=== PATIENT | male | born 1945 | race Caucasian/White ===

== ENCOUNTER → 2020-02-05 14:20 | Outpatient (BNVA) | payer MEDICARE, OTHER, SELFPAY | PROVIDERS: PCP Internal Medicine; Referring Provider Internal Medicine; Visit Provider Nurse Practitioner Family | DX: I48.0 Paroxysmal atrial fibrillation (principal); I35.0 Nonrheumatic aortic (valve) stenosis; R60.0 Localized edema; E78.5 Hyperlipidemia, unspecified; I10 Essential (primary) hypertension; E11.9 Type 2 diabetes mellitus without complications; Z79.01 Long term (current) use of anticoagulants | CPT/HCPCS: 99214 ==

== ENCOUNTER 2020-02-27 06:50 | Outpatient (REF) | payer MEDICARE, OTHER, SELFPAY ==
[2020-02-27 11:14] LABS: MANUAL DIFF FLAG NO
[2020-02-27 11:26] LABS: Estimated Average Glucose 143 mg/dL; Hemoglobin A1c % 6.6 %
[2020-02-27 11:30] LABS: Basophils Absolute Auto 0.1 X10*3/uL (0.0-0.2); Basophils Percent Auto 0.9 % (0-2); Eosinophils Absolute Auto 0.3 X10*3/uL (0.0-0.4); Eosinophils Percent Auto 3.8 % (0-4); Hematocrit 35.2 % (42-52); Hemoglobin 11.3 g/dl (14.0-18.0); Imm Gran Abs Auto 0.03 X10*3/uL (0.00-0.03); Imm Gran Pct Auto 0.4 % (0.0-0.4); Lymphocytes Absolute Auto 2.1 X10*3/uL (1.2-4.9); Lymphocytes Percent Auto 25.1 % (20-40); Mean Corpuscular HGB Conc 32.1 g/dl (31.0-36.0); Mean Corpuscular Hemoglobin 30.5 pg (27.0-33.0); Mean Corpuscular Volume 95.1 fL (80-98); Mean Platelet Volume 10.3 fL (9.4-12.4); Monocytes Absolute Auto 1.1 X10*3/uL (0.1-1.2); Neutrophils Absolute Auto 4.6 X10*3/uL (2.0-8.3); Neutrophils Percent Auto 56.8 % (45-73); Platelet Count 258 X10*3/uL (160-400); Red Cell Distribution Width 13.4 % (11.0-16.0); White Blood Count 8.2 X10*3/uL (4.8-10.8)
[2020-02-27 11:37] LABS: Glucose Urine UA NEG (NEG); Leukocyte Esterase Urine NEG (NEG); Nitrite Urine NEG (NEG); PH 6.5 (5.0-8.0); Urine Blood NEG (NEG); Urine Ketones NEG (NEG); Urine Protein NEG (NEG-TRACE)
[2020-02-27 11:39] LABS: Alanine Aminotransferase 9 U/L (0-40); Albumin Level 4.1 g/dL (3.5-5.0); Alkaline Phosphatase 129 U/L (39-117); Anion Gap 14 (12-20); Aspartate Amino Transferase 16 U/L (5-37); Bilirubin Total 0.8 mg/dL (0.0-1.0); Blood Urea Nitrogen 15 mg/dL (9-16); Calcium 8.8 mg/dL (8.4-10.2); Carbon Dioxide 25 mmol/L (22-29); Chloride 103 mmol/L (96-108); Cholesterol 114 mg/dL; Estimated Glomerular Filt Rate > 60; Glucose Fasting 142 mg/dL (60-99); HDL Cholesterol 33 mg/dL; LDL Cholesterol Calculated 67 mg/dl; Potassium 4.6 mmol/l (3.3-5.1); Sodium 137 mmol/L (135-145); Triglycerides 74 mg/dL
[2020-02-27 11:40] LABS: Appearance Urine HAZY; Color Urine YELLOW
[2020-02-27 11:43] LABS: B Type Natriuretic Peptide 106 pg/mL (<100)
[2020-02-27 12:04] LABS: Vitamin D 25-OH Total 45.7 ng/mL (>30)
[2020-02-27 12:05] LABS: Creatinine Urine 158.21 mg/dL; Microalbum/Creatinine Ratio Ur 6.3 ug/mg cr
[2020-02-27 12:29] LABS: Mucus Urine TRACE /LPF; RBC Urine 0-2 /HPF (0); WBC Urine 0 /HPF (0-4)
== END 2020-02-27 06:51 | disposition home or self-care (01) ==
LOC: HO.HMGCLDS 06:50
PROVIDERS: Nurse Practitioner Family; PCP Internal Medicine; Visit Provider Internal Medicine
DX: I48.0 Paroxysmal atrial fibrillation (principal); E11.9 Type 2 diabetes mellitus without complications; I35.0 Nonrheumatic aortic (valve) stenosis; E55.9 Vitamin D deficiency, unspecified
CPT/HCPCS: 36415; 80053; 80061; 81001; 82043; 82306; 83036; 83880; 84443; 85025

== ENCOUNTER 2020-05-06 14:37 | Outpatient (REF) | payer MEDICARE, OTHER, SELFPAY ==
--- NOTE | 2020-05-06 | XR_ITS ---
EXAMINATION: XR CHEST CLINICAL INFORMATION: Paroxysmal atrial fibrillation COMPARISON: Previous chest x-rays most recent August 2019 TECHNIQUE: 2 views of the chest were obtained. FINDINGS: The cardiac and mediastinal contours are stable. There is linear scarring or subsegmental atelectasis in the anterior right lung. The lungs are otherwise clear. There is no pleural effusion or pneumothorax. There are degenerative changes of the spine. XR/XR chest 2V IMPRESSION: Linear scarring or subsegmental atelectasis in the anterior right upper lung. No evidence of CHF.
[2020-05-06 16:35] LABS: Basophils Absolute Auto 0.1 X10*3/uL (0.0-0.2); Basophils Percent Auto 0.6 % (0-2); Eosinophils Absolute Auto 0.3 X10*3/uL (0.0-0.4); Eosinophils Percent Auto 2.8 % (0-4); Hematocrit 35.6 % (42-52); Hemoglobin 11.4 g/dl (14.0-18.0); Imm Gran Abs Auto 0.03 X10*3/uL (0.00-0.03); Imm Gran Pct Auto 0.3 % (0.0-0.4); Lymphocytes Absolute Auto 2.3 X10*3/uL (1.2-4.9); Mean Corpuscular Hemoglobin 29.8 pg (27.0-33.0); Mean Corpuscular Volume 93.2 fL (80-98); Mean Platelet Volume 10.1 fL (9.4-12.4); Monocytes Percent Auto 11.1 % (2-11); Neutrophils Absolute Auto 5.2 X10*3/uL (2.0-8.3); Neutrophils Percent Auto 59.2 % (45-73); Platelet Count 284 X10*3/uL (160-400); Red Blood Count 3.82 X10*6/uL (4.60-5.80); Red Cell Distribution Width 13.6 % (11.0-16.0); White Blood Count 8.8 X10*3/uL (4.8-10.8)
[2020-05-06 16:38] LABS: MANUAL DIFF FLAG NO
[2020-05-06 16:53] LABS: Alanine Aminotransferase 12 U/L (0-40); Albumin Level 4.4 g/dL (3.5-5.0); Alkaline Phosphatase 162 U/L (39-117); Anion Gap 15 (12-20); Aspartate Amino Transferase 18 U/L (5-37); Bilirubin Total 0.4 mg/dL (0.0-1.0); Blood Urea Nitrogen 15 mg/dL (9-16); C Reactive Protein 1.14 mg/dL (< or = 0.50); Calcium 9.4 mg/dL (8.4-10.2); Carbon Dioxide 27 mmol/L (22-29); Chloride 101 mmol/L (96-108); Estimated Glomerular Filt Rate > 60; Glucose Random 121 mg/dL (60-115); Potassium 3.8 mmol/l (3.3-5.1); Sodium 139 mmol/L (135-145); Total Protein 7.6 g/dL (6.5-8.0)
[2020-05-06 17:29] LABS: Erythrocyte Sedimentation Rate 38 MM/HR (0-15)
== END 2020-05-06 14:38 | disposition home or self-care (01) ==
LOC: HO.HMGCX 14:37
PROVIDERS: PCP Internal Medicine; Visit Provider Internal Medicine
DX: Z20.822 Contact with and (suspected) exposure to COVID-19 (principal); L03.116 Cellulitis of left lower limb; I48.0 Paroxysmal atrial fibrillation
CPT/HCPCS: 36415; 71046; 80053; 85025; 85652; 86140; C9803; U0003

== ENCOUNTER → 2020-09-02 14:00 | Outpatient (BNVA) | payer MEDICARE, OTHER, SELFPAY | PROVIDERS: PCP Internal Medicine; Visit Provider Internal Medicine Cardiovascular Disease | DX: I48.0 Paroxysmal atrial fibrillation (principal); I35.0 Nonrheumatic aortic (valve) stenosis; Z79.899 Other long term (current) drug therapy | CPT/HCPCS: 99212 ==

== ENCOUNTER 2021-02-23 09:11 | Outpatient (REF) | payer MEDICARE, OTHER, SELFPAY ==
--- NOTE | ~2021-02-23 | XR_ITS ---
EXAMINATION: XR HAND, LEFT CLINICAL INFORMATION: Swollen joint COMPARISON: None TECHNIQUE: PA, lateral, and oblique views of the left hand. FINDINGS: Joint space narrowing and marginal osteophytes at the 1st CMC joint, 1st MCP and IP joints, second MCP and DIP joints, third CMC and DIP joints and fifth DIP joint. Mineralization is normal. No malalignment. No fracture. XR/XR hand LT min 3V IMPRESSION: No acute abnormality. Mild degenerative changes.
[2021-02-23 11:27] LABS: MANUAL DIFF FLAG NO
[2021-02-23 11:34] LABS: Appearance Urine CLEAR; Color Urine YELLOW; Glucose Urine UA NEG (NEG); Leukocyte Esterase Urine NEG (NEG); Nitrite Urine NEG (NEG); Specific Gravity - Urine 1.025 (1.005-1.025); Urine Blood NEG (NEG); Urine Ketones NEG (NEG); Urine Protein NEG (NEG-TRACE)
[2021-02-23 11:38] LABS: Basophils Absolute Auto 0.1 X10*3/uL (0.0-0.2); Basophils Percent Auto 0.8 % (0-2); Eosinophils Absolute Auto 0.4 X10*3/uL (0.0-0.4); Eosinophils Percent Auto 4.7 % (0-4); Hematocrit 34.2 % (42-52); Hemoglobin 11.2 g/dl (14.0-18.0); Imm Gran Abs Auto 0.02 X10*3/uL (0.00-0.03); Imm Gran Pct Auto 0.3 % (0.0-0.4); Lymphocytes Absolute Auto 1.9 X10*3/uL (1.2-4.9); Lymphocytes Percent Auto 25.4 % (20-40); Mean Corpuscular HGB Conc 32.7 g/dl (31.0-36.0); Mean Corpuscular Hemoglobin 31.5 pg (27.0-33.0); Mean Corpuscular Volume 96.1 fL (80-98); Mean Platelet Volume 10.1 fL (9.4-12.4); Monocytes Absolute Auto 1.2 X10*3/uL (0.1-1.2); Monocytes Percent Auto 15.4 % (2-11); Neutrophils Percent Auto 53.4 % (45-73); Platelet Count 225 X10*3/uL (160-400); Red Blood Count 3.56 X10*6/uL (4.60-5.80); Red Cell Distribution Width 13.5 % (11.0-16.0); White Blood Count 7.5 X10*3/uL (4.8-10.8)
[2021-02-23 11:56] LABS: Estimated Average Glucose 134 mg/dL; Hemoglobin A1c % 6.3 %
[2021-02-23 11:58] LABS: Alanine Aminotransferase 14 U/L (0-40); Albumin Level 4.2 g/dL (3.5-5.0); Alkaline Phosphatase 110 U/L (39-117); Anion Gap 10 (12-20); Aspartate Amino Transferase 20 U/L (5-37); Bilirubin Total 0.5 mg/dL (0.0-1.0); Blood Urea Nitrogen 16 mg/dL (9-16); C Reactive Protein 0.24 mg/dL (< or = 0.50); Calcium 9.3 mg/dL (8.4-10.2); Carbon Dioxide 25 mmol/L (22-29); Chloride 107 mmol/L (96-108); Cholesterol 111 mg/dL; Estimated Glomerular Filt Rate > 60; Glucose Fasting 95 mg/dL (60-99); HDL Cholesterol 32 mg/dL; LDL Cholesterol Calculated 67 mg/dl; Potassium 4.2 mmol/L (3.3-5.1); Sodium 138 mmol/L (135-145); Triglycerides 62 mg/dL
[2021-02-23 12:02] LABS: Calcium Oxalate Crystals Urine 2+ /LPF; RBC Urine 0 /HPF (0); Squamous Epithelial Cell Urine TRACE /LPF; WBC Urine 0 /HPF (0-4)
[2021-02-23 12:03] LABS: Uric Acid 6.5 mg/dL (3.4-7.0)
[2021-02-23 12:19] LABS: PSA,Total (Free>4and<10) 2.01 ng/mL (0.00-4.00); Thyroid Stimulating Hormone 2.72 uIU/mL (0.32-4.0); Vitamin D 25-OH Total 51.5 ng/mL (>30)
[2021-02-23 12:20] LABS: Creatinine Urine 141.32 mg/dL; Microalbum/Creatinine Ratio Ur 6.3 ug/mg cr
[2021-02-23 13:07] LABS: Erythrocyte Sedimentation Rate 28 MM/HR (0-15)
== END 2021-02-23 09:12 | disposition home or self-care (01) ==
LOC: HO.HMGCLDS 09:11
PROVIDERS: Nurse Practitioner Family; PCP Internal Medicine; Visit Provider Internal Medicine
DX: Z12.5 Encounter for screening for malignant neoplasm of prostate (principal); I10 Essential (primary) hypertension; I35.0 Nonrheumatic aortic (valve) stenosis; R60.9 Edema, unspecified; E11.9 Type 2 diabetes mellitus without complications; I48.0 Paroxysmal atrial fibrillation; K21.9 Gastro-esophageal reflux disease without esophagitis; E55.9 Vitamin D deficiency, unspecified; N40.0 Benign prostatic hyperplasia without lower urinary tract symptoms; M25.40 Effusion, unspecified joint
CPT/HCPCS: 36415; 73130; 80048; 80053; 80061; 81001; 82043; 82306; 83036; 84153; 84443; 84550; 85025; 85652; 86140

== ENCOUNTER → 2021-03-03 10:27 | Outpatient (REF) | payer MEDICARE, OTHER, SELFPAY ==
--- NOTE | 2021-03-03 10:30 | CA_ITS ---
Transthoracic Echocardiogram Patient (Last, First, Middle): , Thaddeus, W Gender: Male Date of : 1945 Age: 76 Procedure Date: 03/03/2021 Procedure Type: Transthoracic Echocardiogram Location: OP Height: 175.26 cm Weight: 104.33 kg BSA: 2.19 m2 Heart Rate: bpm BP: 136 / 62 mmHg Recreation Activities Coordinator: VH/CP Referring MD: Bolivar Helton MD Junior Account Executive: Bolivar Helton MD Symptoms: I35.0 - Nonrheumatic aortic (valve) stenosis Study Quality: Fair ECG Rhythm: Sinus with extra beats Conclusions: - 1. Normal LV systolic function with mild LVH with pseudonormal filling pattern 2. Mildly dilated left atrium 3. Moderate aortic stenosis 4. Normal RV systolic pressure 5. No gross pericardial effusion Findings Left Ventricle Normal left ventricular size and systolic function. There is mildly increased left ventricular wall thickness. The visually estimated ejection fraction is between 55-60%. Spectral Doppler is indicative of a pseudonormal filling pattern. E/E prime ratio is between 8 and 15 consistent with indeterminate filling pressures. Right Ventricle The right ventricle was not well visualized. Atria The left atrium is mildly dilated. Interatrial shunt cannot be excluded. The right atrium was not well visualized. Aortic Valve The aortic valve was not well visualized. There is moderate calcification of the aortic valve. There is moderate aortic valve stenosis. The peak aortic gradient is 35 mmHg.The mean gradient is 22 mmHg. The aortic valve area is 1.20 cm2. There is no aortic valve regurgitation. Mitral Valve There is mild anterior and posterior mitral leaflet thickening. There is mild mitral annular calcification. There is trace mitral valve regurgitation. There is no mitral valve stenosis. Pulmonic Valve The pulmonic valve was not well visualized. Tricuspid Valve The right ventricular systolic pressure is 23 mmHg. There is no evidence of pulmonary hypertension. Great Vessels The aorta was not well visualized. The pulmonary artery was not well visualized. Venous The inferior vena cava is normal in size. Pericardium/Pleural There is no evidence of pericardial effusion. Prior Study Comparison Changes noted compared to prior study. Aortic stenosis is is moderate severity Measurements 2D Linear Measurements IVSd: 1.33 0.6-0.9/0.6-1.0 cm LVIDd: 3.98 3.9-5.3/4.2-5.9 cm LVIDd Index: 1.82 2.4-3.2/2.2-3.1 cm/m2 LVIDs: 2.93 2.0-3.6 cm LVPWd: 0.94 0.7-1.1 cm Ao Root: 3.60 2.1-3.5 cm LA Diam: 3.70 2.7-3.8/3.0-4.0 cm LAIDs Index: 1.69 1.5-2.3 cm/m2 LV Mass: 187.85 67-162/88-224 g LV Mass Index: 85.78 43-95/49-115 g/m2 LVOT Diam: 2.20 3.0+(-)1.3 cm 2D Systolic Function EF 4C: 51.10 >55% EF 2C: 52.40 >55% EF BiP: 51.50 >55% Mitral Valve MV Pk E: 0.89 MV PK A: 0.83 MV Decel Time: 252.00 E/A: 1.10 E'Lateral: 11.70 E'Medial: 7.18 E/E' Med: 12.30 E/E' Lat: 7.60 PHT: 74.00 MVA PHT: 2.97 Decel [place]: 3.52 Aortic Valve AoV Pk Calvin: 2.95 AoV Mn Calvin: 2.16 AoV VTI: 0.69 AoV Pk Grad: 35.00 Aov Mn Grad: 22.00 THANIA Cont.VTI: 1.20 LVOT LVOT Pk Calvin: 1.02 LVOT Mn Calvin: 0.65 LVOT VTI: 0.22 LVOT Pk Grad: 4.00 LVOT Mn Grad: 2.00 LVOT Diam: 2.20 LVOT Area: 3.80 Diastolic Function MV Pk E: 0.89 MV Pk A: 0.83 E/A: 1.10 E'Medial: 7.18 E/E' Med: 12.30 E' Laterial: 11.70 E/E' Lat: 7.60 Tricuspid Valve TR Pk Calvin: 2.25 TR Pk Grad: 20.00 RA Press: 3.00 RVSP: 23.00 Great Vessels Aorta Ao Root-2D: 3.60 2.0-3.7 cm Ao Asc: 3.70 2.1-3.4 cm Updated in Other Vendor System with Status of Final Bolivar Helton MD electronically signed on 03/03/2021 4:36:33 PM with status of Final
== END ==
LOC: HO.CARD 10:27
PROVIDERS: Visit Provider Internal Medicine Cardiovascular Disease
DX: I35.0 Nonrheumatic aortic (valve) stenosis (principal)
CPT/HCPCS: 93306

== ENCOUNTER → 2021-03-17 10:22 | Outpatient (BNVA) | payer MEDICARE, OTHER, SELFPAY | PROVIDERS: PCP Internal Medicine; Visit Provider Internal Medicine Cardiovascular Disease | DX: I48.0 Paroxysmal atrial fibrillation (principal); I35.0 Nonrheumatic aortic (valve) stenosis | CPT/HCPCS: 93005; 99212 ==

== ENCOUNTER 2021-09-17 10:46 | Outpatient (REF) | payer MEDICARE, OTHER, SELFPAY ==
[2021-09-17 13:04] LABS: Anion Gap 11 (12-20); Blood Urea Nitrogen 18 mg/dL (9-16); Carbon Dioxide 26 mmol/L (22-29); Chloride 104 mmol/L (96-108); Estimated Glomerular Filt Rate 52; Glucose Random 102 mg/dL (60-115); Potassium 4.2 mmol/L (3.3-5.1); Sodium 137 mmol/L (135-145)
== END 2021-09-17 10:47 | disposition home or self-care (01) ==
LOC: HO.LAB 10:46
PROVIDERS: PCP Internal Medicine; Referring Provider Internal Medicine; Visit Provider Internal Medicine Cardiovascular Disease
DX: I48.0 Paroxysmal atrial fibrillation (principal); I35.0 Nonrheumatic aortic (valve) stenosis
CPT/HCPCS: 36415; 80048; 99212

== ENCOUNTER → 2021-11-03 14:05 | Outpatient (BNVA) | payer MEDICARE, OTHER, SELFPAY | PROVIDERS: PCP Internal Medicine; Visit Provider Orthopaedic Surgery | DX: M19.042 Primary osteoarthritis, left hand (principal); R20.0 Anesthesia of skin; R20.2 Paresthesia of skin | CPT/HCPCS: 99202 ==

== ENCOUNTER 2021-11-16 14:02 | Day surgery (SDC) | payer MEDICARE, OTHER, SELFPAY ==
--- NOTE | ~2021-11-16 | FL_ITS ---
EXAMINATION: XR FLUOROSCOPY WITH IMAGES CLINICAL INFORMATION: Second finger injection. COMPARISON: 02/23/2021 TECHNIQUE: Fluoroscopy performed by Dr. Gudelia Pires. FLUOROSCOPY TIME: 12.64 seconds. DAP: 0.161 uGy-cm2 FLUOROSCOPIC IMAGES: 1 FINDINGS: Needle is seen directed to the 2nd metacarpophalangeal joint. FL/FL guidance in OR IMPRESSION: Intraoperative fluoroscopy for pain management procedure.
--- NOTE | 2021-11-16 11:11 | PM.PRCOR ---
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 Injection #1 : The risks and benefits of a steroid injection including but not limited to risk of damage to blood vessels, nerve, tendon, infection, skin bleaching, persistent or worsening pain, and failure to improve symptoms were discussed with the patient and they wish to proceed with the steroid injection. Once consent was obtained the skin over the dorsum of the left 2nd MCP joint was sterilely prepped. The joint was then injected with a combination of 1 mL of (40 mg/ml} Depo-Medrol and 2% plain lidocaine using the FluoroScan for needle guidance.. The patient appears to have tolerated the procedure well and with no complications. He understands that he may not have another steroid injection into this joint for about 4 months. He may follow-up with us as needed.
[2021-11-16 14:19] VITALS: BMI 32.3
[2021-11-16 14:26] VITALS: BP 122/69; PULSE 81; RESP 17; TEMP 36.9; O2SAT 99
[2021-11-16 14:33] LABS: Glucose, Whole Blood 150 mg/dL (60-115)
[2021-11-16 14:36] VITALS: BP 122/69; PULSE 81; RESP 17; TEMP 36.9; O2SAT 99
[2021-11-16 16:35] VITALS: BP 107/62; PULSE 74; RESP 17; TEMP 37.1; O2SAT 98
== END 2021-11-16 16:54 | disposition home or self-care (01) ==
PROVIDERS: PCP Internal Medicine; Visit Provider Orthopaedic Surgery
PROC: (CPT 20600; principal; 2021-11-16 15:50)
DX: M19.042 Primary osteoarthritis, left hand (principal); M25.542 Pain in joints of left hand; M25.642 Stiffness of left hand, not elsewhere classified; R20.2 Paresthesia of skin; R60.9 Edema, unspecified; I10 Essential (primary) hypertension; I73.00 Raynaud's syndrome without gangrene; E78.5 Hyperlipidemia, unspecified; I48.0 Paroxysmal atrial fibrillation; Z79.01 Long term (current) use of anticoagulants; E11.9 Type 2 diabetes mellitus without complications; Z79.84 Long term (current) use of oral hypoglycemic drugs; Z79.899 Other long term (current) drug therapy; Z87.891 Personal history of nicotine dependence
CPT/HCPCS: 20600; 82947; J1020

== ENCOUNTER 2021-12-17 06:29 | Outpatient (REF) | payer MEDICARE, OTHER, SELFPAY ==
[2021-12-17 11:24] LABS: MANUAL DIFF FLAG NO
[2021-12-17 11:29] LABS: Basophils Percent Auto 0.5 % (0-2); Eosinophils Absolute Auto 0.3 X10*3/uL (0.0-0.4); Eosinophils Percent Auto 3.5 % (0-4); Hematocrit 33.8 % (42.0-52.0); Hemoglobin 11.4 g/dl (14.0-18.0); Imm Gran Abs Auto 0.02 X10*3/uL (0.00-0.03); Imm Gran Pct Auto 0.3 % (0.0-0.4); Lymphocytes Absolute Auto 1.9 X10*3/uL (1.2-4.9); Lymphocytes Percent Auto 24.9 % (20-40); Mean Corpuscular HGB Conc 33.7 g/dl (31.0-36.0); Mean Corpuscular Hemoglobin 31.8 pg (27.0-33.0); Mean Corpuscular Volume 94.4 fL (80.0-98.0); Mean Platelet Volume 10.2 fL (9.4-12.4); Monocytes Percent Auto 12.9 % (2-11); Neutrophils Absolute Auto 4.4 x10*3/uL (2.0-8.3); Neutrophils Percent Auto 57.9 % (45-73); Platelet Count 252 X10*3/uL (160-400); Red Blood Count 3.58 X10*6/uL (4.60-5.80); Red Cell Distribution Width 13.4 % (11.0-16.0); White Blood Count 7.7 X10*3/uL (4.8-10.8)
[2021-12-17 11:44] LABS: Amylase 65 U/L (28-100); Anion Gap 14 (12-20); Blood Urea Nitrogen 15 mg/dL (9-16); Calcium 9.1 mg/dL (8.4-10.2); Carbon Dioxide 25 mmol/L (22-29); Chloride 103 mmol/L (96-108); Cholesterol 112 mg/dL; Estimated Glomerular Filt Rate 52; Glucose Fasting 126 mg/dL (60-99); HDL Cholesterol 35 mg/dL; LDL Cholesterol Calculated 62 mg/dl; Lipase 25 U/L (8-78); Potassium 4.3 mmol/L (3.3-5.1); Sodium 138 mmol/L (135-145); Triglycerides 79 mg/dL
[2021-12-17 12:09] LABS: Thyroid Stimulating Hormone 2.59 uIU/mL (0.32-4.0)
[2021-12-17 12:15] LABS: Appearance Urine Clear; Color Urine Yellow; Glucose Urine UA Negative (Negative); Leukocyte Esterase Urine Negative (Negative); Nitrite Urine Negative (Negative); Urine Blood Negative (Negative); Urine Ketones Negative (Negative); Urine Protein Negative (Neg-Trace)
[2021-12-17 12:19] LABS: Bacteria Urine None Seen (None Seen); Hyaline Casts Urine 0-2 /LPF (0-2); Squamous Epithelial Cell Urine 0-2 /HPF (0-2); WBC Urine 0-5 /HPF (0-5)
== END 2021-12-17 06:30 | disposition home or self-care (01) ==
LOC: HO.HMGCLDS 06:29
PROVIDERS: Visit Provider Internal Medicine
DX: E11.9 Type 2 diabetes mellitus without complications (principal); I48.0 Paroxysmal atrial fibrillation; E55.9 Vitamin D deficiency, unspecified; I35.0 Nonrheumatic aortic (valve) stenosis; N40.0 Benign prostatic hyperplasia without lower urinary tract symptoms
CPT/HCPCS: 36415; 80048; 80061; 81001; 82150; 82306; 83690; 84443; 85025

== ENCOUNTER 2022-02-03 13:09 | Outpatient (REF) | payer MEDICARE, OTHER, SELFPAY ==
[2022-02-03 14:20] LABS: Appearance Urine Clear; Color Urine Yellow; Glucose Urine UA Negative (Negative); Leukocyte Esterase Urine Negative (Negative); Nitrite Urine Negative (Negative); Urine Blood Negative (Negative); Urine Ketones Negative (Negative); Urine Protein Negative (Neg-Trace)
[2022-02-03 14:26] LABS: Bacteria Urine None Seen (None Seen); Hyaline Casts Urine 0-2 /LPF (0-2); RBC Urine 0-2 /HPF (0-2); Squamous Epithelial Cell Urine 0-2 /HPF (0-2); WBC Urine 0-5 /HPF (0-5)
[2022-02-03 14:32] LABS: Estimated Average Glucose 143 mg/dL; Hemoglobin A1c % 6.6 %
[2022-02-03 14:56] LABS: Creatinine Urine 62.32 mg/dL; Microalbum/Creatinine Ratio Ur 9.6 ug/mg cr
[2022-02-03 15:57] LABS: PSA,Total (Free>4and<10) 4.94 ng/mL (0.00-4.00)
[2022-02-05 09:22] LABS: Percent Free Prostate Spec Ag 38 % (calc) (>25); Prostate Specific Ag Total 5.3 ng/mL (< OR = 4.0)
== END 2022-02-03 13:10 | disposition home or self-care (01) ==
LOC: HO.HMGCLDS 13:09
PROVIDERS: Absent Provider Physician Assistant Surgical; PCP Internal Medicine; Visit Provider Internal Medicine
DX: Z12.5 Encounter for screening for malignant neoplasm of prostate (principal); R97.20 Elevated prostate specific antigen [PSA]; E11.9 Type 2 diabetes mellitus without complications; R19.5 Other fecal abnormalities
CPT/HCPCS: 36415; 81001; 82043; 83036; 84153; 84154

== ENCOUNTER → 2022-03-02 12:40 | Outpatient (REF) | payer MEDICARE, OTHER, SELFPAY ==
--- NOTE | 2022-03-02 12:43 | CA_ITS ---
Transthoracic Echocardiogram Patient (Last, First, Middle): , Thaddeus, W Gender: Male Date of : 1945 Age: 77 Procedure Date: 03/02/2022 Procedure Type: Transthoracic Echocardiogram Location: OP Height: 175.26 cm Weight: 102.06 kg BSA: 2.17 m2 Heart Rate: bpm BP: 118 / 67 mmHg Junior Financial Analyst: TO Referring MD: Bolivar Helton MD Symptoms: I35.0 - Nonrheumatic aortic (valve) stenosis Study Quality: Adequate ECG Rhythm: Sinus Conclusions: - The left ventricular systolic function is normal. The calculated ejection fraction is 61% by biplane method. - There is moderate to severe aortic valve stenosis. Low flow-low gradient type. - There is mildly decreased right ventricular systolic function. Findings Left Ventricle Normal left ventricular cavity size. The left ventricular systolic function is normal. The calculated ejection fraction is 61% by biplane method. There is no evidence of regional wall motion abnormalities. Diastolic function is normal for age. There is mild septal asymmetric hypertrophy. Right Ventricle Normal right ventricular cavity size. There is mildly decreased right ventricular systolic function. Aortic Valve There is moderate calcification of the aortic valve. There is moderate to severe aortic valve stenosis. The mean gradient is 26 mmHg. The aortic valve area is 0.96 cm2. There is mild aortic valve regurgitation. Stroke volume index 34ml/m2. Dimensionless index 0.26. Mitral Valve There is mild mitral annular calcification. There is no mitral valve regurgitation. There is no mitral valve stenosis. Pulmonic Valve The pulmonic valve is likely normal. Tricuspid Valve Normal tricuspid valve structure. There is trace tricuspid valve regurgitation. There is no evidence of pulmonary hypertension. Great Vessels The asc aorta is normal in size. Venous The inferior vena cava is mildly dilated and collapses greater than 50% with inspiration. Pericardium/Pleural There is no evidence of pericardial effusion. Prior Study Comparison Changes noted compared to prior study dated: 03/03/2021. Progression of aortic stenosis. Measurements 2D Linear Measurements IVSd: 1.18 0.6-0.9/0.6-1.0 cm LVIDd: 4.46 3.9-5.3/4.2-5.9 cm LVIDd Index: 2.06 2.4-3.2/2.2-3.1 cm/m2 LVIDs: 2.97 2.0-3.6 cm LVPWd: 0.96 0.7-1.1 cm LA Diam: 3.50 2.7-3.8/3.0-4.0 cm LAIDs Index: 1.61 1.5-2.3 cm/m2 LV Mass: 206.19 67-162/88-224 g LV Mass Index: 95.02 43-95/49-115 g/m2 LVOT Diam: 2.10 3.0+(-)1.3 cm 2D Systolic Function EF 4C: 60.70 >55% EF 2C: 62.10 >55% EF BiP: 61.30 >55% Mitral Valve MV Pk E: 0.93 MV PK A: 0.63 MV Decel Time: 204.00 E/A: 1.50 E'Lateral: 8.92 E'Medial: 8.05 E/E' Med: 11.60 E/E' Lat: 10.40 PHT: 60.00 MVA PHT: 3.67 Decel [place]: 4.57 Aortic Valve AoV Pk Calvin: 3.35 AoV Mn Calvin: 2.38 AoV VTI: 0.77 AoV Pk Grad: 45.00 Aov Mn Grad: 26.00 THANIA Cont.VTI: 0.96 LVOT LVOT Pk Calvin: 0.95 LVOT Mn Calvin: 0.59 LVOT VTI: 0.22 LVOT Pk Grad: 4.00 LVOT Mn Grad: 2.00 LVOT Diam: 2.10 LVOT Area: 3.46 Diastolic Function MV Pk E: 0.93 MV Pk A: 0.63 E/A: 1.50 E'Medial: 8.05 E/E' Med: 11.60 E' Laterial: 8.92 E/E' Lat: 10.40 Right Ventricle TAPSE (mm): 13.00 TVS' Calvin: 9.57 Tricuspid Valve TR Pk Calvin: 2.16 TR Pk Grad: 19.00 RA Press: 8.00 RVSP: 27.00 Great Vessels Aorta Sinus of Valsalva: 3.76 2.0-3.[address] [place]: 2.83 1.7-3.4 cm Ao Asc: 3.70 2.1-3.4 cm Updated in Other Vendor System with Status of Final Luis Armando Fowler MD electronically signed on 03/03/2022 8:40:12 AM with status of Final
== END ==
LOC: HO.CARD 12:40
PROVIDERS: Visit Provider Internal Medicine Cardiovascular Disease
DX: I35.0 Nonrheumatic aortic (valve) stenosis (principal)
CPT/HCPCS: 93306

== ENCOUNTER → 2022-03-30 10:25 | Outpatient (BNVA) | payer MEDICARE, OTHER, SELFPAY | PROVIDERS: PCP Internal Medicine; Referring Provider Internal Medicine; Visit Provider Internal Medicine Cardiovascular Disease | DX: Z09 Encounter for follow-up examination after completed treatment for conditions other than malignant neoplasm (principal); I35.0 Nonrheumatic aortic (valve) stenosis; I48.0 Paroxysmal atrial fibrillation | CPT/HCPCS: 93005; 99212 ==

== ENCOUNTER 2022-04-06 02:09 | Emergency (ER) | payer MEDICARE, OTHER, SELFPAY ==
--- NOTE | ~2022-04-06 | CT_ITS ---
EXAMINATION: CT ABDOMEN AND PELVIS WITHOUT CONTRAST CLINICAL INFORMATION: Abdominal pain. COMPARISON: Bowel ultrasound 12/22/2017. TECHNIQUE: Multidetector volumetric imaging was performed from the superior aspect of the liver through the pubic symphysis. Sagittal and coronal reformatted images were obtained on the technologist's workstation. This CT examination was performed using dose optimization techniques as appropriate, variously including the following: *Automated exposure control *Adjustment of mA and/or kV according to patient size (this includes techniques or standardized protocols for targeted exams where dose is matched to indication/reason for exam; i.e. extremities or head) *Use of iterative reconstruction technique DLP: 727 mGy-cm FINDINGS: LUNG BASES: Bibasilar scattered subpleural medium and fine pulmonary reticular opacities are present and may represent chronic parenchymal scarring. Partial visualization is made of marked diffuse coronary artery calcific atherosclerosis. LIVER, GALLBLADDER, AND BILIARY TREE: The liver is normal in size, shape, and attenuation. No focal hepatic lesion or biliary ductal dilatation is present. Partially decompressed. No biliary duct dilatation. PANCREAS: Unremarkable. SPLEEN: Unremarkable. ADRENAL GLANDS: Unremarkable. KIDNEYS AND URETERS: The kidneys are normal in size, shape, and attenuation. No hydronephrosis, hydroureter, or calculi seen. No perinephric stranding. BLADDER: Physiologically distended. GASTROINTESTINAL TRACT: Normal appearance of the appendix (series 3 image 62). No intestinal dilatation or mural thickening. High density intraluminal material is noted within the colon and may represent residual oral contrast agent or ingested radiodense material including possible laxatives. No free intraperitoneal fluid or gas collections are noted. No intestinal dilatation or mural thickening noted. Normal appearance of the stomach. ABDOMINAL WALL: No significant hernia is appreciated. LYMPH NODES: Normal. VASCULAR: Marked diffuse calcific atherosclerosis. PELVIC VISCERA: The prostate measures 5 cm in AP dimension consistent with prostatic enlargement. OSSEOUS STRUCTURES: Multilevel intervertebral disc space narrowing noted. Partial visualization is made of a broad-based pseudodisc bulge at L4-L5 associated with grade 1 anterolisthesis of L4 and L5. CT/CT abdomen pelvis wo IV con IMPRESSION: 1. No acute abnormalities identified. 2. Marked diffuse calcific atherosclerosis including marked diffuse coronary artery calcific atherosclerosis. 3. 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 4. Prostatomegaly. 5. Partial visualization of chronic appearing subpleural interstitial scarring of the lung bases.
[2022-04-06 02:20] VITALS: BP 129/69; PULSE 72; RESP 12; TEMP 36.7; O2SAT 96
[2022-04-06 02:22] VITALS: BP 132/74; PULSE 67; O2SAT 97
[2022-04-06 02:31] VITALS: BMI 33.2
[2022-04-06 03:02] LABS: Basophils Absolute Auto 0.1 X10*3/uL (0.0-0.2); Basophils Percent Auto 0.6 % (0-2); Eosinophils Absolute Auto 0.3 X10*3/uL (0.0-0.4); Eosinophils Percent Auto 3.6 % (0-4); Hematocrit 32.7 % (42.0-52.0); Hemoglobin 10.8 g/dl (14.0-18.0); Imm Gran Abs Auto 0.02 X10*3/uL (0.00-0.03); Imm Gran Pct Auto 0.2 % (0.0-0.4); Lymphocytes Absolute Auto 1.5 X10*3/uL (1.2-4.9); Lymphocytes Percent Auto 16.9 % (20-40); MANUAL DIFF FLAG NO; Mean Corpuscular Hemoglobin 29.4 pg (27.0-33.0); Mean Corpuscular Volume 89.1 fL (80.0-98.0); Mean Platelet Volume 9.5 fL (9.4-12.4); Monocytes Absolute Auto 1.1 X10*3/uL (0.1-1.2); Monocytes Percent Auto 12.5 % (2-11); Neutrophils Absolute Auto 5.9 x10*3/uL (2.0-8.3); Neutrophils Percent Auto 66.2 % (45-73); Platelet Count 227 X10*3/uL (160-400); Red Blood Count 3.67 X10*6/uL (4.60-5.80); Red Cell Distribution Width 13.4 % (11.0-16.0); White Blood Count 8.9 X10*3/uL (4.8-10.8)
--- NOTE | 2022-04-06 03:31 | ECG_ITS ---
Test Reason : ABDOMINAL PAIN Blood Pressure : / mmHG Vent. Rate : 079 BPM Atrial Rate : 079 BPM P-R Int : 214 ms QRS Dur : 080 ms QT Int : 406 ms P-R-T Axes : 030 -25 047 degrees QTc Int : 465 ms Sinus rhythm with 1st degree A-V block Otherwise normal ECG When compared with ECG of 13-DEC-2017 13:28, MI interval has increased Nonspecific T wave abnormality, improved in Lateral leads QT has lengthened Referred By: Kristen Correa Electronically Signed By:ALEX ELIZABETH MD
--- NOTE | 2022-04-06 03:32 | ED.ABDPAIN ---
HPI - Abdominal Pain General Chief Complaint: Abdominal Pain Stated Complaint: abd pain Time Seen by Provider: 04/06/22 03:23 Source: patient and EMS Mode of arrival: EMS Limitations: no limitations History of Present Illness HPI narrative: 77-year-old male came in for evaluation of abdominal pain. Patient been having abdominal pain for the past week pain is mostly in mid abdomen and is intermittent pain for a week, sometimes can be severe 10/10 and goes down to 1/10, patient woke up from sleep with 10/10 pain now patient has 2/10 pain, no nausea, no vomiting, no chest pain, no shortness of breath, no bowel movement change, no dysuria or frequency urination. Related Data Home Medications Medication Instructions Recorded Confirmed amlodipine 5 mg tablet 5 mg PO DAILY 02/05/20 03/30/22 atorvastatin 40 mg tablet 40 mg PO DAILY 09/02/20 03/30/22 sitagliptin phosphate 100 mg tablet 100 mg PO DAILY 03/17/21 03/30/22 Previous Rx's Medication Instructions Recorded furosemide 20 mg tablet 20 mg PO DAILY 30 days #50 tabs 03/09/21 rivaroxaban 20 mg tablet (Xarelto) 20 mg PO DAILY #30 tabs 03/08/22 Allergies Allergy/AdvReac Type Severity Reaction Status Date / Time prednisone Allergy Unknown GI Verified 11/03/21 14:27 Review of Systems Review of Systems All other systems are reviewed and are negative Constitutional: Reports as per HPI and Reports no additional constitutional complaints Eyes: Reports as per HPI and Reports no additional eye complaints Reports system reviewed and no additional complaints, except as documented Cardiovascular: Reports as per HPI and Reports no additional cardiovascular complaints Respiratory: Reports as per HPI and Reports no additional respiratory complaints Gastrointestinal: Reports as per HPI and Reports no additional gastrointestinal complaints Genitourinary: Reports no additional female genitourinary complaints Musculoskeletal: Reports no additional musculoskeletal complaints Skin/Breast: Reports system reviewed and no additional complaints, except as docu Psychiatric: Reports no additional psychiatric complaints Endocrine: Reports no additional endocrine complaints Hematologic/Lymphatic: Reports no additional hematologic/lymphatic complaints Allergic/Immunologic: Reports no additional allergic/immunologic complaints Reports system reviewed and no additional complaints, except as documented and Reports Abnormal speech present PMFSH Past Medical History Medical History Aortic stenosis Edema HTN (hypertension) Hyperlipemia PAF (paroxysmal atrial fibrillation) Raynaud disease Type 2 diabetes mellitus Surgical History History of cataract surgery Family History Family History Father No problems noted. Mother No problems noted. Paternal Grandfather CVD (cardiovascular disease) Paternal Grandmother No problems noted. Maternal Grandfather CVD (cardiovascular disease) Maternal Grandmother No problems noted. 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 Blood pressure normal. Heart rate normal. Respiration rate normal. Temperature normal. Oxygen saturation normal. Appearance: Alert. Oriented X3. No acute distress. Head: Normal external exam. Normocephalic. Atraumatic. No Grewal signs noted. No raccoon eyes noted Eyes: PERRLA. EOMI. Conjunctiva and sclera normal. Eyelids normal. ENT: TM's Normal. Pharynx normal. Uvula midline. Moist mucous membranes. No trismus noted. No drooling noted. No muffled voice noted. Neck: Normal inspection. Neck supple. FROM. No adenopathy. Thyroid Normal. No meningeal signs. No neck mass noted. CVS: Normal heart rate and rhythm. Heart sound normal. No murmurs noted. Pulses normal throughout. Respiratory: No respiratory distress. Painless inspiration. Breath sounds normal. No wheezes/rales/rhonchi noted. Chest nontender. No accessory muscle usage noted or decreased air movement noted. Abdomen: Soft, obese, mild tenderness in the epigastric area, no rebound tenderness, no guarding. Bowel sounds normal in all 4 quadrants. No distention noted. No organomegaly noted. No visible injury noted. Back: No CVA tenderness. Full range of motion noted. Skin: Skin warm and dry. Normal skin color. Normal skin turgor. No rashes/lesions/lacerations noted. Extremities: No lower extremity edema. Extremities exhibit normal range of motion. Extremities nontender. Neuro: Oriented X 3. Cranial nerve exam: II-XII are grossly intact No motor deficit. No sensory deficit. Reflexes normal. Course Course Course Narrative: 77-year-old male with abdominal pain of unclear etiology, unremarkable labs unremarkable CT of the abdomen and pelvis, cardiac workup is unremarkable as well. 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 Independent interpretation of EKG, rhythm strip, radiology study: Independent interp EKG,rhythm strip, radiology study I performed an independent interpretation of the: EKG My interpretation is normal sinus rhythm at 79 beats per minutes, SD prolongation with first-degree AV block, nonspecific ST-T changes. Discharge Plan Discharge Clinical Impression: Abdominal pain Patient Disposition: Home, Self-Care Instructions: Abdominal Pain (ED) Prescriptions: No Action furosemide 20 mg tablet 20 mg PO DAILY 30 Days Qty: 50 5RF Rx Instructions: additional tablet as needed for leg swelling Xarelto 20 mg tablet 20 mg PO DAILY Qty: 30 6RF amlodipine 5 mg tablet 5 mg PO DAILY atorvastatin 40 mg tablet 40 mg PO DAILY sitagliptin phosphate 100 mg tablet 100 mg PO DAILY Referrals: Anselmo Azevedo DO [Primary Care Provider] - Quan Duenas MD [Physician] -
[2022-04-06 03:34] LABS: Alanine Aminotransferase 12 U/L (0-40); Albumin Level 4.2 g/dL (3.5-5.0); Alkaline Phosphatase 118 U/L (39-117); Anion Gap 14 (12-20); Aspartate Amino Transferase 16 U/L (5-37); Bilirubin Total 0.3 mg/dL (0.0-1.0); Blood Urea Nitrogen 20 mg/dL (9-16); Calcium 9.7 mg/dL (8.4-10.2); Carbon Dioxide 27 mmol/L (22-29); Chloride 101 mmol/L (96-108); Creatinine Clr Calc Pharmacy 54.7; Estimated Glomerular Filt Rate 52; Glucose Random 153 mg/dL (60-115); Lipase 31 U/L (8-78); Sodium 138 mmol/L (135-145); Total Protein 7.2 g/dL (6.5-8.0)
[2022-04-06 04:10] LABS: Troponin-I High Sensitivity < 3.5 ng/L (<3.5-35.0)
[2022-04-06 05:13] LABS: Appearance Urine Clear; Color Urine Yellow; Glucose Urine UA Negative (Negative); Leukocyte Esterase Urine Negative (Negative); Nitrite Urine Negative (Negative); PH 6.5 (5.0-9.0); Specific Gravity - Urine 1.015 (1.005-1.025); Urine Blood Negative (Negative); Urine Ketones Negative (Negative); Urine Protein Negative (Neg-Trace)
[2022-04-06 06:23] VITALS: BP 108/40; PULSE 71; RESP 11; TEMP 36.8; O2SAT 96
== END 2022-04-06 06:48 | disposition home or self-care (01) ==
PROVIDERS: Emergency Provider Emergency Medicine; PCP Internal Medicine
DX: R10.9 Unspecified abdominal pain (principal); R07.89 Other chest pain; Z87.891 Personal history of nicotine dependence; Z79.899 Other long term (current) drug therapy
CPT/HCPCS: 36415; 74176; 80053; 81003; 83690; 84484; 85025; 93005; 99284; 99285

== ENCOUNTER 2022-04-14 12:01 | Outpatient (REF) | payer MEDICARE, OTHER, SELFPAY ==
[2022-04-14 13:58] LABS: MANUAL DIFF FLAG NO
[2022-04-14 14:00] LABS: Basophils Absolute Auto 0.1 X10*3/uL (0.0-0.2); Basophils Percent Auto 0.7 % (0-2); Eosinophils Absolute Auto 0.2 X10*3/uL (0.0-0.4); Eosinophils Percent Auto 3.2 % (0-4); Hematocrit 31.2 % (42.0-52.0); Hemoglobin 10.1 g/dl (14.0-18.0); Imm Gran Abs Auto 0.01 X10*3/uL (0.00-0.03); Imm Gran Pct Auto 0.1 % (0.0-0.4); Lymphocytes Absolute Auto 2.2 X10*3/uL (1.2-4.9); Lymphocytes Percent Auto 28.9 % (20-40); Mean Corpuscular HGB Conc 32.4 g/dl (31.0-36.0); Mean Corpuscular Hemoglobin 29.8 pg (27.0-33.0); Mean Platelet Volume 10.1 fL (9.4-12.4); Monocytes Absolute Auto 1.1 X10*3/uL (0.1-1.2); Monocytes Percent Auto 14.2 % (2-11); Neutrophils Percent Auto 52.9 % (45-73); Platelet Count 262 X10*3/uL (160-400); Red Blood Count 3.39 X10*6/uL (4.60-5.80); Red Cell Distribution Width 13.7 % (11.0-16.0); White Blood Count 7.6 X10*3/uL (4.8-10.8)
[2022-04-14 14:57] LABS: TSH reflex Free T4 3.23 uIU/mL (0.32-4.0)
[2022-04-14 15:04] LABS: Leukocytes Stool Qualitative FEW: < 2/OIF (NEGATIVE)
[2022-04-15 13:05] LABS: Adenovirus F 40/41 Not Detected (Not Detect.); Astrovirus Not Detected (Not Detect.); Campylobacter Not Detected (Not Detect.); Cryptosporidium Not Detected (Not Detect.); Cyclospora cayetanensis Not Detected (Not Detect.); E. coli EAEC Not Detected (Not Detect.); E. coli EPEC Not Detected (Not Detect.); E. coli ETEC Detected (Not Detect.); E. coli STEC Not Detected (Not Detect.); Entamoeba histolytica Not Detected (Not Detect.); Giardia lamblia Not Detected (Not Detect.); Norovirus GI/GII Not Detected (Not Detect.); Plesiomonas shigelloides Not Detected (Not Detect.); Rotavirus A Not Detected (Not Detect.); Salmonella Not Detected (Not Detect.); Sapovirus Not Detected (Not Detect.); Shigella sp./EIEC Not Detected (Not Detect.); Vibrio Not Detected (Not Detect.); Vibrio Cholerae Not Detected (Not Detect.); Yersinia enterocolitica Not Detected (Not Detect.)
[2022-04-20 00:04] LABS: Calprotectin, Fecal 200 mcg/g
== END 2022-04-14 12:02 | disposition home or self-care (01) ==
LOC: HO.HMGCLDS 12:01
PROVIDERS: PCP Internal Medicine; Visit Provider Internal Medicine Gastroenterology
DX: R19.7 Diarrhea, unspecified (principal); K92.89 Other specified diseases of the digestive system
CPT/HCPCS: 36415; 83993; 84443; 85025; 87177; 87209; 87507; 89055

== ENCOUNTER 2022-05-06 13:24 | Outpatient (REF) | payer MEDICARE, OTHER, SELFPAY ==
--- NOTE | 2022-05-06 09:15 | EMG_ITS ---
Bilateral median and ulnar motor and sensory studies were performed. Bilateral radial sensory studies were performed and paraspinal muscles were tested with a needle. IMPRESSION: 1. [id number] bilateral median neuropathy across carpal tunnel. 2. [id number] bilateral ulnar neuropathy across cubital tunnel. MD ERNST Kingston/WILMER / [id number]
== END 2022-05-06 13:25 | disposition home or self-care (01) ==
LOC: HO.NEURO 13:24
PROVIDERS: PCP Internal Medicine; Visit Provider Orthopaedic Surgery
DX: R20.0 Anesthesia of skin (principal); R20.2 Paresthesia of skin
CPT/HCPCS: 95886; 95911

== ENCOUNTER 2022-07-15 11:32 | Outpatient (REF) | payer MEDICARE, OTHER, SELFPAY ==
[2022-07-15 14:17] LABS: MANUAL DIFF FLAG NO
[2022-07-15 14:33] LABS: Basophils Absolute Auto 0.1 X10*3/uL (0.0-0.2); Eosinophils Absolute Auto 0.2 X10*3/uL (0.0-0.4); Eosinophils Percent Auto 3.8 % (0-4); Hematocrit 30.9 % (42.0-52.0); Hemoglobin 9.9 g/dl (14.0-18.0); Imm Gran Abs Auto 0.02 X10*3/uL (0.00-0.03); Imm Gran Pct Auto 0.3 % (0.0-0.4); Lymphocytes Absolute Auto 1.6 X10*3/uL (1.2-4.9); Mean Corpuscular Hemoglobin 27.3 pg (27.0-33.0); Mean Corpuscular Volume 85.4 fL (80.0-98.0); Mean Platelet Volume 10.2 fL (9.4-12.4); Monocytes Absolute Auto 0.8 X10*3/uL (0.1-1.2); Monocytes Percent Auto 13.9 % (2-11); Neutrophils Absolute Auto 3.1 x10*3/uL (2.0-8.3); Platelet Count 254 X10*3/uL (160-400); Red Blood Count 3.62 X10*6/uL (4.60-5.80); Red Cell Distribution Width 15.2 % (11.0-16.0); White Blood Count 5.8 X10*3/uL (4.8-10.8)
[2022-07-15 15:01] LABS: C Reactive Protein 0.39 mg/dL (< or = 0.50); Iron 26 mcg/dL (45-160); Percent Iron Saturation 8 % (15-50); Rheumatoid Factor 48.3 IU/mL (<15.0); Total Iron Binding Capacity 341 mcg/dL (228-428); Unsaturated Iron Binding 315 ug/dL; Uric Acid 6.5 mg/dL (3.4-7.0)
[2022-07-15 15:07] LABS: Alanine Aminotransferase 12 U/L (0-40); Albumin Level 3.9 g/dL (3.5-5.0); Alkaline Phosphatase 124 U/L (39-117); Amylase 64 U/L (28-100); Anion Gap 13 (12-20); Aspartate Amino Transferase 19 U/L (5-37); Bilirubin Total 0.5 mg/dL (0.0-1.0); Blood Urea Nitrogen 13 mg/dL (9-16); Calcium 9.2 mg/dL (8.4-10.2); Carbon Dioxide 21 mmol/L (22-29); Chloride 107 mmol/L (96-108); Estimated Glomerular Filt Rate 53; Glucose Random 148 mg/dL (60-115); Lipase 29 U/L (8-78); Potassium 4.1 mmol/L (3.3-5.1); Sodium 137 mmol/L (135-145); Total Protein 6.8 g/dL (6.5-8.0)
[2022-07-15 15:18] LABS: Ferritin 20 ng/mL (20-250); Thyroid Stimulating Hormone 2.69 uIU/mL (0.32-4.0)
[2022-07-15 15:19] LABS: Erythrocyte Sedimentation Rate 32 MM/HR (0-15)
[2022-07-19 16:28] LABS: Cyclic Citrullinated Peptide <16 UNITS
[2022-07-19 22:04] LABS: Lyme Abs Screen <0.90 index
[2022-07-21 14:54] LABS: Anti Nuclear Antibody Pattern Nuclear, Centromere; Anti Nuclear Antibody Screen POSITIVE (NEGATIVE); Anti Nuclear Antibody Titer > OR = 1:1280 titer
== END 2022-07-15 11:33 | disposition home or self-care (01) ==
LOC: HO.HMGCLDS 11:32
PROVIDERS: Absent Provider Orthopaedic Surgery Hand Surgery; PCP Internal Medicine; Visit Provider Internal Medicine
DX: K21.9 Gastro-esophageal reflux disease without esophagitis (principal); M79.643 Pain in unspecified hand; M65.30 Trigger finger, unspecified finger; M67.34 Transient synovitis, hand
CPT/HCPCS: 36415; 80053; 82150; 82728; 83540; 83690; 84443; 84550; 85025; 85652; 86038; 86039; 86140; 86200; 86431; 86617; 86618

== ENCOUNTER 2022-07-28 13:59 | Outpatient (REF) | payer MEDICARE, OTHER, SELFPAY ==
[2022-07-29 07:14] LABS: OBS1 NEGATIVE (NEGATIVE); OBS2 NEGATIVE (NEGATIVE)
[2022-07-29 07:15] LABS: OBS Int Ctl Valid YES; OBS3 NEGATIVE (NEGATIVE)
== END 2022-07-28 14:00 | disposition home or self-care (01) ==
LOC: HO.HMGCLNP 13:59
PROVIDERS: Visit Provider Internal Medicine Gastroenterology
DX: Z13.89 Encounter for screening for other disorder (principal)
CPT/HCPCS: 82270

== ENCOUNTER → 2022-08-27 13:48 | Outpatient (REF) | payer MEDICARE, OTHER, SELFPAY ==
--- NOTE | 2022-08-27 13:50 | CA_ITS ---
Transthoracic Echocardiogram Patient (Last, First, Middle): , Thaddeus, W Gender: Male Date of : 1945 Age: 77 Procedure Date: 08/27/2022 Procedure Type: Transthoracic Echocardiogram Location: OP Height: 177.8 cm Weight: 102.06 kg BSA: 2.19 m2 Heart Rate: 81 bpm BP: 114 / 60 mmHg Tactical Air Control Party Manager: KIMMIE Referring MD: Bolivar Helton MD Symptoms: I35.0 - Nonrheumatic aortic (valve) stenosis Study Quality: Adequate w contrast ECG Rhythm: Sinus Conclusions: - Normal left ventricular size and systolic function. The visually estimated ejection fraction is between 60-65%. - Normal right ventricular cavity size. There is mildly decreased right ventricular systolic function. - There is moderate aortic valve stenosis. The peak aortic velocity is 3.21 m/s. The mean gradient is 24 mmHg. The aortic valve area is 1.06 cm2. Findings Procedure Information Contrast agent, definity, is being given per protocol without apparent complications. The quality of the study was technically difficult. The study quality is limited by patients body habitus. Left Ventricle Normal left ventricular size and systolic function. The visually estimated ejection fraction is between 60-65%. There is no evidence of regional wall motion abnormalities. Diastolic function is indeterminate on the basis of available data. There is mild septal asymmetric hypertrophy. Right Ventricle Normal right ventricular cavity size. There is mildly decreased right ventricular systolic function. Atria The left atrium is mildly dilated. Aortic Valve There is severe calcification of the aortic valve. There is moderate aortic valve stenosis. The peak aortic velocity is 3.21 m/s. The mean gradient is 24 mmHg. The aortic valve area is 1.06 cm2. There is no aortic valve regurgitation. Mitral Valve There is no mitral valve regurgitation. There is trace mitral valve stenosis. Pulmonic Valve The pulmonic valve is likely normal. Tricuspid Valve Normal tricuspid valve structure. There is no tricuspid valve regurgitation. Normal right atrial pressure. There is no evidence of pulmonary hypertension. Great Vessels There is mild dilatation of the ascending aorta measuring 3.50 cm. The visualized portions of the pulmonary artery and branches are normal. Venous The inferior vena cava is normal in size and collapses greater than 50% with inspiration. The hepatic vein collapses greater than 50% with inspiration. Pericardium/Pleural There is no evidence of pericardial effusion. Prior Study Comparison No significant change compared to prior study dated: 03/02/2022. Measurements 2D Linear Measurements IVSd: 1.32 0.6-0.9/0.6-1.0 cm LVIDd: 4.35 3.9-5.3/4.2-5.9 cm LVIDd Index: 1.99 2.4-3.2/2.2-3.1 cm/m2 LVIDs: 2.91 2.0-3.6 cm LVPWd: 0.83 0.7-1.1 cm LA Diam: 4.50 2.7-3.8/3.0-4.0 cm LAIDs Index: 2.05 1.5-2.3 cm/m2 LV Mass: 200.40 67-162/88-224 g LV Mass Index: 91.51 43-95/49-115 g/m2 LVOT Diam: 2.00 3.0+(-)1.3 cm 2D Systolic Function EF 4C: 60.10 >55% Mitral Valve MV PK A: 0.74 E'Lateral: 9.79 E'Medial: 8.27 Aortic Valve AoV Pk [place]: 3.21 AoV Mn [place]: 2.26 AoV VTI: 0.70 AoV Pk Grad: 48.00 Aov Mn Grad: 24.00 THANIA Cont.VTI: 1.06 LVOT LVOT Pk [place]: 0.96 LVOT Mn [place]: 0.68 LVOT VTI: 0.23 LVOT Pk Grad: 4.00 LVOT Mn Grad: 2.00 LVOT Diam: 2.00 LVOT Area: 3.14 Diastolic Function MV Pk A: 0.74 E'Medial: 8.27 E' Laterial: 9.79 Right Ventricle TAPSE (mm): 12.90 TVS' [place]: 8.55 Tricuspid Valve TR Pk [place]: 2.13 TR Pk Grad: 18.00 RA Press: 3.00 RVSP: 21.00 Great Vessels Aorta Sinus of Valsalva: 3.70 2.0-3.5 cm Ao Asc: 3.50 2.1-3.4 cm Pulmonary Valve PV Pk Calvin: 0.86 Peak PV Grad: 3.00 Updated in Other Vendor System with Status of Final Eduar Westbrook MD electronically signed on 08/28/2022 9:59:35 AM with status of Final
== END ==
LOC: HO.CARD 13:48
PROVIDERS: PCP Internal Medicine; Visit Provider Internal Medicine Cardiovascular Disease
DX: I35.0 Nonrheumatic aortic (valve) stenosis (principal)
CPT/HCPCS: 93306; Q9957

== ENCOUNTER → 2022-09-06 11:03 | Outpatient (BNVA) | payer MEDICARE, OTHER, SELFPAY | PROVIDERS: PCP Internal Medicine; Referring Provider Internal Medicine; Visit Provider Internal Medicine Cardiovascular Disease | DX: I35.0 Nonrheumatic aortic (valve) stenosis (principal); I48.0 Paroxysmal atrial fibrillation; Z79.01 Long term (current) use of anticoagulants | CPT/HCPCS: 99212 ==

== ENCOUNTER 2022-10-15 10:09 | Outpatient (REF) | payer MEDICARE, OTHER, SELFPAY ==
[2022-10-15 11:24] LABS: MANUAL DIFF FLAG NO
[2022-10-15 11:33] LABS: Basophils Absolute Auto 0.1 X10*3/uL (0.0-0.2); Basophils Percent Auto 0.9 % (0-2); Eosinophils Absolute Auto 0.4 X10*3/uL (0.0-0.4); Eosinophils Percent Auto 5.9 % (0-4); Hematocrit 28.9 % (42.0-52.0); Hemoglobin 9.2 g/dl (14.0-18.0); Imm Gran Abs Auto 0.03 X10*3/uL (0.00-0.03); Imm Gran Pct Auto 0.4 % (0.0-0.4); Lymphocytes Absolute Auto 1.5 X10*3/uL (1.2-4.9); Lymphocytes Percent Auto 22.6 % (20-40); Mean Corpuscular HGB Conc 31.8 g/dl (31.0-36.0); Mean Corpuscular Hemoglobin 27.1 pg (27.0-33.0); Mean Platelet Volume 9.9 fL (9.4-12.4); Monocytes Absolute Auto 0.9 X10*3/uL (0.1-1.2); Monocytes Percent Auto 13.4 % (2-11); Neutrophils Absolute Auto 3.8 x10*3/uL (2.0-8.3); Neutrophils Percent Auto 56.8 % (45-73); Platelet Count 234 X10*3/uL (160-400); Red Cell Distribution Width 15.8 % (11.0-16.0); White Blood Count 6.8 X10*3/uL (4.8-10.8)
[2022-10-15 11:51] LABS: Estimated Average Glucose 157 mg/dL; Hemoglobin A1c % 7.1 %
[2022-10-15 12:37] LABS: PSA,Total (Free>4and<10) 2.21 ng/mL (0.00-4.00)
[2022-10-15 13:12] LABS: Creatinine Urine 86.92 mg/dL; Microalbumin Urine < 5.0 mg/L
[2022-10-15 13:20] LABS: Alanine Aminotransferase 17 U/L (0-40); Albumin Level 3.9 g/dL (3.5-5.0); Alkaline Phosphatase 127 U/L (39-117); Anion Gap 13 (12-20); Aspartate Amino Transferase 27 U/L (5-37); Bilirubin Total 0.7 mg/dL (0.0-1.0); Blood Urea Nitrogen 20 mg/dL (9-16); Calcium 9.8 mg/dL (8.4-10.2); Carbon Dioxide 23 mmol/L (22-29); Chloride 105 mmol/L (96-108); Cholesterol 107 mg/dL; Estimated Glomerular Filt Rate 50; Glucose Fasting 118 mg/dL (60-99); HDL Cholesterol 31 mg/dL; Iron 35 mcg/dL (45-160); LDL Cholesterol Calculated 64 mg/dl; Percent Iron Saturation 9 % (15-50); Sodium 137 mmol/L (135-145); Total Iron Binding Capacity 374 mcg/dL (228-428); Total Protein 7.3 g/dL (6.5-8.0); Triglycerides 61 mg/dL; Unsaturated Iron Binding 339 ug/dL
[2022-10-15 13:41] LABS: Ferritin 20 ng/mL (20-250); Thyroid Stimulating Hormone 2.63 uIU/mL (0.32-4.0); Vitamin D 25-OH Total 55.1 ng/mL (>30)
== END 2022-10-15 10:10 | disposition home or self-care (01) ==
LOC: HO.HMGCLDS 10:09
PROVIDERS: Absent Provider Physician Assistant Surgical; PCP Internal Medicine; Visit Provider Internal Medicine
DX: Z12.5 Encounter for screening for malignant neoplasm of prostate (principal); E11.9 Type 2 diabetes mellitus without complications; I48.0 Paroxysmal atrial fibrillation; I35.0 Nonrheumatic aortic (valve) stenosis; E55.9 Vitamin D deficiency, unspecified; K21.9 Gastro-esophageal reflux disease without esophagitis; R97.20 Elevated prostate specific antigen [PSA]
CPT/HCPCS: 36415; 80053; 80061; 82043; 82306; 82728; 83036; 83540; 84153; 84443; 85025

== ENCOUNTER 2022-10-22 13:38 | Outpatient (REF) | payer MEDICARE, OTHER, SELFPAY ==
--- NOTE | ~2022-10-22 | XR_ITS ---
EXAMINATION: XR HIP, LEFT CLINICAL INFORMATION: Pain COMPARISON: None available. TECHNIQUE: Two views of the left hip. FINDINGS: Bones and soft tissues are normal. No fracture. Alignment is anatomic. Hip joint space is maintained. XR/XR hip LT min 2V IMPRESSION: Normal left hip.
--- NOTE | ~2022-10-22 | XR_ITS ---
EXAMINATION: XR HIP, RIGHT CLINICAL INFORMATION: Pain COMPARISON: None available. TECHNIQUE: Two views of the right hip. FINDINGS: Bones and soft tissues are normal. No fracture. Alignment is anatomic. Hip joint space is maintained. XR/XR hip RT min 2V IMPRESSION: Normal right hip.
== END 2022-10-22 13:39 | disposition home or self-care (01) ==
LOC: HO.HMGCX 13:38
PROVIDERS: PCP Internal Medicine; Visit Provider Internal Medicine
DX: M25.551 Pain in right hip (principal); M25.552 Pain in left hip
CPT/HCPCS: 73502

== ENCOUNTER 2023-01-06 15:47 | Outpatient (REF) | payer MEDICARE, OTHER, SELFPAY ==
--- NOTE | ~2023-01-06 | XR_ITS ---
EXAMINATION: XR FOOT, RIGHT CLINICAL INFORMATION: Gout. Pain. COMPARISON: None available. TECHNIQUE: AP, lateral, and oblique views of the right foot. FINDINGS: No acute fracture or malalignment. Mild degenerative changes of the midfoot and 1st MTP/IP joints. Small lucency at the medial aspect of the 1st proximal phalanx at the IP joint could represent a chronic periarticular erosion. No suspicious soft tissue calcification. Vascular calcifications are noted. XR/XR foot RT min 3V IMPRESSION: 1. No acute fracture or malalignment. 2. Mild degenerative changes of the midfoot and 1st MTP/IP joints. There may be a small, chronic appearing erosion at the medial aspect of the 1st IP joint. This can be a manifestation of gouty arthritis. No associated soft tissue calcification.
== END 2023-01-06 15:48 | disposition home or self-care (01) ==
LOC: HO.HMGCX 15:47
PROVIDERS: PCP Internal Medicine; Visit Provider Internal Medicine
DX: M10.9 Gout, unspecified (principal)
CPT/HCPCS: 73630

== ENCOUNTER 2023-01-07 10:48 | Outpatient (REF) | payer MEDICARE, OTHER, SELFPAY ==
[2023-01-07 13:14] LABS: MANUAL DIFF FLAG NO
[2023-01-07 13:36] LABS: Basophils Absolute Auto 0.1 X10*3/uL (0.0-0.2); Eosinophils Absolute Auto 0.4 X10*3/uL (0.0-0.4); Hemoglobin 9.2 g/dl (14.0-18.0); Imm Gran Abs Auto 0.03 X10*3/uL (0.00-0.03); Imm Gran Pct Auto 0.4 % (0.0-0.4); Lymphocytes Absolute Auto 2.2 X10*3/uL (1.2-4.9); Lymphocytes Percent Auto 31.1 % (20-40); Mean Corpuscular HGB Conc 30.7 g/dl (31.0-36.0); Mean Corpuscular Hemoglobin 25.6 pg (27.0-33.0); Mean Corpuscular Volume 83.3 fL (80.0-98.0); Monocytes Percent Auto 14.2 % (2-11); Neutrophils Absolute Auto 3.4 x10*3/uL (2.0-8.3); Neutrophils Percent Auto 48.3 % (45-73); Platelet Count 321 X10*3/uL (160-400); Red Cell Distribution Width 15.1 % (11.0-16.0); White Blood Count 7.1 X10*3/uL (4.8-10.8)
[2023-01-07 13:56] LABS: Alanine Aminotransferase 13 U/L (0-40); Albumin Level 3.9 g/dL (3.5-5.0); Alkaline Phosphatase 127 U/L (39-117); Anion Gap 13 (12-20); Aspartate Amino Transferase 25 U/L (5-37); Bilirubin Total 0.5 mg/dL (0.0-1.0); Blood Urea Nitrogen 16 mg/dL (9-16); C Reactive Protein 0.64 mg/dL (< or = 0.50); Calcium 9.6 mg/dL (8.4-10.2); Carbon Dioxide 25 mmol/L (22-29); Chloride 101 mmol/L (96-108); Estimated Glomerular Filt Rate 53; Glucose Random 166 mg/dL (60-115); Potassium 3.8 mmol/L (3.3-5.1); Sodium 135 mmol/L (135-145); Total Protein 7.3 g/dL (6.5-8.0); Uric Acid 7.4 mg/dL (3.4-7.0)
== END 2023-01-07 10:49 | disposition home or self-care (01) ==
LOC: HO.HMGCLDS 10:48
PROVIDERS: PCP Internal Medicine; Visit Provider Internal Medicine
DX: M10.9 Gout, unspecified (principal)
CPT/HCPCS: 36415; 80053; 84550; 85025; 86140

== ENCOUNTER 2023-03-07 13:36 | Outpatient (AMB) | payer MEDICARE, OTHER, SELFPAY ==
[2023-03-07 13:40] VITALS: BP 110/62; PULSE 84; BMI 33.2
--- NOTE | 2023-03-07 13:40 | A.OFFVIS_ITS ---
Intake Vital Signs 03/07/23 13:40 Height 5 ft 9 in Weight 224 lb 13.944 oz BMI 33.2 BP 110/62 Blood Pressure Location Lt brachial Position Sitting Pulse 84 Intake Visit Reasons: 6 month follow up Intake Note: 6 month follow-up Allergies prednisone Allergy (Unknown, Verified 09/06/22 11:16) GI Medication List - Last Reconciled 03/07/23 by Bolivar Helton MD amlodipine 5 mg PO DAILY atorvastatin 40 mg PO DAILY furosemide 20 mg PO DAILY 30 days rivaroxaban (Xarelto) 20 mg PO DAILY sitagliptin phosphate 100 mg PO DAILY HPI HPI Comments History of Present Illness Details Thaddeus comes for follow-up. Denies any new cardiac symptoms. 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 Denies any prolonged palpitation irregular heartbeat. Denies any exertional chest pain or shortness of breath. No orthopnea, PND, lightheadedness, syncope. No bleeding issues or neurologic event although on on noticing gradual decline in his hematocrit. He has been told that he has iron deficiency anemia [facility] Medical History Raynaud disease Edema Aortic stenosis Hyperlipemia HTN (hypertension) Type 2 diabetes mellitus PAF (paroxysmal atrial fibrillation) Surgical History History of cataract surgery Family History Father No problems noted. Mother No problems noted. Paternal Grandfather CVD (cardiovascular disease) Paternal Grandmother No problems noted. Maternal Grandfather CVD (cardiovascular disease) Maternal Grandmother No problems noted. 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 Review of Systems Const Denies chills, Denies fatigue, Denies fever(s), Denies frequent falls, Denies weakness, Denies weight gain and Denies weight loss ENT Denies dizziness Card Denies chest pain, Denies leg edema, Denies lightheadedness, Denies palpitations, Denies dyspnea, Denies dyspnea on exertion, Denies orthopnea and Denies other (loss of consciousness) Resp Denies cough, Denies dyspnea and Denies dyspnea on exertion GI Denies hematochezia and Denies change in stool character Musc Denies abnormal gait, Denies muscle weakness, Denies numbness, Denies radiating pain into limb and Denies tingling Neuro Denies abnormal gait, Denies dizziness, Denies frequent falls, Denies numbness, Denies tingling and Denies weakness Endo Denies fatigue and Denies palpitations Physical Exam Vital Signs: Last Vital Signs Pulse 84 03/07/23 13:40 BP 110/62 03/07/23 13:40 BMI result Body Mass Index 33.2 Const General: cooperative, comfortable, no acute distress, alert and awake Nutritional Appearance: obese Orientation/consciousness: patient oriented x3 Limitations: ambulation with cane Neck Neck: Yes trachea midline, Yes supple and Yes no JVD Resp Effort & Inspection: normal respiratory effort Auscultation: clear to auscultation bilaterally Cardio Jugular venous distension: no JVD Palpation: normal PMI Rate: regular rate Rhythm: regular rhythm Heart sounds: S1 normal heart sound present, S2 normal heart sound present ( Soft) and Murmur heart sound present systolic late, decrescendo, crescendo and at the right sternal border GI Auscultation: normal bowel sounds Skin General skin exam: no rashes or lesions noted and ecchymosis Neuro General: patient oriented x3 and no focal motor deficits Extrem General: Yes no clubbing, cyanosis or edema Psych Appearance: grossly normal Office Procedures EKG Details: EKG shows normal sinus rhythm with normal EKG [id number], Complete Assessment & Plan Assessment & Plan (1) PAF (paroxysmal atrial fibrillation): Comment: history of paroxysmal atrial fibrillation, no recent episodes. No reports of heart palpitations. EKG today shows sinus rhythm. He is not on any rate slowing medications. He is on Xarelto for anticoagulation. No reports of bleeding. Code(s): I48.0 - Paroxysmal atrial fibrillation Plan: Highly symptomatic paroxysmal atrial fibrillation doing well at current point time with no clinical recurrence. Continue current therapy. Continue risk factor modification. Blood pressure is currently well optimized currently on full oral anticoagulation with Xarelto 20 mg daily. Quarterly renal function test should be followed. Although gradually declined hematocrit is concerning. Will refer to Hematology for further workup. If he does have truly iron deficiency anemia than cause of this should be determined and/or consider alternative therapy to Xarelto including Watchman device. This was discussed with him. (2) Aortic stenosis: Comment: history of nonrheumatic aortic stenosis, previously mild. Echocardiogram just completed shows EF 60-65%, [id number] , mean gradient 24 mm of mercury, aortic valve area 1.43 centimeter squared. No cardinal symptoms of severe . Audible murmur on examination. He does have some evidence of fluid overload with leg edema, elevated RSVP and JVD. Code(s): I35.0 - Nonrheumatic aortic (valve) stenosis Plan: Aortic stenosis which appears at least moderate by clinical exam. Will follow- up echocardiogram 6 months time. Cardinal symptoms associated with aortic stenosis were discussed. Continue aggressive risk factor modification. Blood pressure is currently well optimized advised to monitor blood pressure at home maintain a log. Goal blood pressure less than 130/84. Continue high-intensity statin therapy. Continue aggressive diabetes management. Follow up in the clinic in 6 months time, sooner p.r.n.. Thank you for allowing me to partake in his care Orders: Orders CA echo transthoracic complete 6 Months I35.0 - Nonrheumatic aortic (valve) stenosis Referrals Hematology & Oncology Referral D64.9 - Anemia, unspecified Coding Level of Care Code Est Pt Level 4 (65472) Diagnoses PAF (paroxysmal atrial fibrillation) I48.0 Aortic stenosis I35.0 CPT Codes EKG - CPT: 11426-[id number], Complete ([id number])
== END 2023-03-07 14:05 | disposition home or self-care (01) ==
PROVIDERS: Visit Provider Internal Medicine Cardiovascular Disease
DX: I48.0 Paroxysmal atrial fibrillation (principal); I35.0 Nonrheumatic aortic (valve) stenosis
CPT/HCPCS: 93010; 99214

== ENCOUNTER → 2023-03-07 13:36 | Outpatient (BNVA) | payer MEDICARE, OTHER, SELFPAY | PROVIDERS: Visit Provider Internal Medicine Cardiovascular Disease | DX: I48.0 Paroxysmal atrial fibrillation (principal); I35.0 Nonrheumatic aortic (valve) stenosis; Z79.01 Long term (current) use of anticoagulants; Z79.899 Other long term (current) drug therapy | CPT/HCPCS: 93005; 99212 ==

== ENCOUNTER 2023-03-31 09:54 | Outpatient (REF) | payer MEDICARE, OTHER, SELFPAY ==
[2023-03-31 13:06] LABS: MANUAL DIFF FLAG NO
[2023-03-31 13:28] LABS: Basophils Absolute Auto 0.1 X10*3/uL (0.0-0.2); Basophils Percent Auto 0.9 % (0-2); Eosinophils Absolute Auto 0.3 X10*3/uL (0.0-0.4); Hematocrit 32.9 % (42.0-52.0); Hemoglobin 10.2 g/dl (14.0-18.0); Imm Gran Abs Auto 0.02 X10*3/uL (0.00-0.03); Imm Gran Pct Auto 0.3 % (0.0-0.4); Lymphocytes Absolute Auto 1.9 X10*3/uL (1.2-4.9); Lymphocytes Percent Auto 24.4 % (20-40); Mean Corpuscular Hemoglobin 25.4 pg (27.0-33.0); Mean Corpuscular Volume 81.8 fL (80.0-98.0); Mean Platelet Volume 10.4 fL (9.4-12.4); Monocytes Absolute Auto 0.9 X10*3/uL (0.1-1.2); Monocytes Percent Auto 11.9 % (2-11); Neutrophils Absolute Auto 4.5 x10*3/uL (2.0-8.3); Neutrophils Percent Auto 58.5 % (45-73); Platelet Count 259 X10*3/uL (160-400); Red Blood Count 4.02 X10*6/uL (4.60-5.80); Red Cell Distribution Width 18.3 % (11.0-16.0); White Blood Count 7.7 X10*3/uL (4.8-10.8)
[2023-03-31 13:43] LABS: Estimated Average Glucose 151 mg/dL; Hemoglobin A1c % 6.9 % (<6.0)
[2023-03-31 14:00] LABS: Alanine Aminotransferase 15 U/L (0-40); Albumin Level 4.1 g/dL (3.5-5.0); Alkaline Phosphatase 139 U/L (39-117); Anion Gap 11 (12-20); Aspartate Amino Transferase 22 U/L (5-37); Bilirubin Total 0.5 mg/dL (0.0-1.0); Blood Urea Nitrogen 16 mg/dL (9-16); Calcium 9.8 mg/dL (8.4-10.2); Carbon Dioxide 26 mmol/L (22-29); Chloride 102 mmol/L (96-108); Cholesterol 114 mg/dL (<200); Estimated Glomerular Filt Rate > 60; Glucose Fasting 125 mg/dL (60-99); HDL Cholesterol 36 mg/dL (>40); LDL Cholesterol Calculated 65 mg/dL (<100); Sodium 135 mmol/L (135-145); Total Protein 7.7 g/dL (6.5-8.0); Triglycerides 69 mg/dL (<150)
[2023-03-31 14:03] LABS: Thyroid Stimulating Hormone 2.81 uIU/mL (0.32-4.0); Vitamin D 25-OH Total 48.9 ng/mL (>30)
[2023-03-31 14:06] LABS: Creatinine Urine 65.13 mg/dL; Microalbumin Urine < 5.0 mg/L
[2023-03-31 14:51] LABS: Iron 41 mcg/dL (45-160); Lactate Dehydrogenase 367 U/L (118-273); Percent Iron Saturation 12 % (15-50); Total Iron Binding Capacity 343 mcg/dL (228-428); Unsaturated Iron Binding 302 ug/dL
[2023-03-31 15:11] LABS: Ferritin 31 ng/mL (20-250)
== END 2023-03-31 09:55 | disposition home or self-care (01) ==
LOC: HO.HMGCLDS 09:54
PROVIDERS: PCP Internal Medicine; Visit Provider Internal Medicine
DX: E11.9 Type 2 diabetes mellitus without complications (principal); K21.9 Gastro-esophageal reflux disease without esophagitis; E55.9 Vitamin D deficiency, unspecified; I48.0 Paroxysmal atrial fibrillation; I35.0 Nonrheumatic aortic (valve) stenosis; E61.1 Iron deficiency
CPT/HCPCS: 36415; 80053; 80061; 82043; 82306; 82570; 82728; 83036; 83540; 83615; 84443; 85025

== ENCOUNTER → 2023-03-31 14:04 | Outpatient (BNV) | payer MEDICARE, OTHER, SELFPAY | PROVIDERS: PCP Internal Medicine; Referring Provider Internal Medicine Cardiovascular Disease; Visit Provider Internal Medicine Medical Oncology | DX: D64.9 Anemia, unspecified (principal) | CPT/HCPCS: 99204; 99213 ==

== ENCOUNTER 2023-04-22 16:23 | Outpatient (REF) | payer MEDICARE, OTHER, SELFPAY ==
[2023-04-23 07:28] LABS: OBS1 NEGATIVE (NEGATIVE); OBS2 NEGATIVE (NEGATIVE); OBS3 NEGATIVE (NEGATIVE)
[2023-04-23 07:29] LABS: OBS Int Ctl Valid YES
== END 2023-04-22 16:24 | disposition home or self-care (01) ==
LOC: HO.LNP 16:23
PROVIDERS: Visit Provider Internal Medicine Medical Oncology
DX: K92.2 Gastrointestinal hemorrhage, unspecified (principal)
CPT/HCPCS: 82270

== ENCOUNTER → 2023-08-31 14:02 | Outpatient (REF) | payer MEDICARE, OTHER, SELFPAY ==
--- NOTE | 2023-08-31 14:05 | CA_ITS ---
Transthoracic Echocardiogram Amended Patient (Last, First, Middle): , Thaddeus, W Gender: Male Date of : 1945 Age: 78 Procedure Date: 08/31/2023 Procedure Type: Transthoracic Echocardiogram Location: OP Height: 177.8 cm Weight: 99.79 kg BSA: 2.17 m2 Heart Rate: 68 bpm BP: 110 / 58 mmHg Change Control Analyst: [email or web address] Referring MD: Bolivar Helton MD Symptoms: I35.0 - Nonrheumatic aortic (valve) stenosis Study Quality: Adequate ECG Rhythm: Sinus Conclusions: - The left ventricular systolic function is low normal. The visually estimated ejection fraction is between 50-55%. - Paradoxical low-flow, low gradient, moderate to severe aortic stenosis. Findings Left Ventricle Normal left ventricular cavity size. The left ventricular systolic function is low normal. The visually estimated ejection fraction is between 50-55%. There is no evidence of regional wall motion abnormalities. Diastolic function is normal for age. There is moderate septal asymmetric hypertrophy. Right Ventricle Normal right ventricular cavity size. There is mildly decreased right ventricular systolic function. Atria Both atria are normal in size. Aortic Valve There is moderate calcification of the aortic valve. The peak aortic velocity is 3.27 m/s with a calculated peak gradient of 43 mmHg. The mean gradient is 25 mmHg. The aortic valve area is 0.91 cm2. There is trace (trivial) aortic valve regurgitation. Dimensionless index 0.28. Stroke volume index 32 mL/m2. Overall, paradoxical low-flow, low gradient, moderate to severe aortic stenosis. Mitral Valve There is mild mitral annular calcification. There is no mitral valve regurgitation. There is no mitral valve stenosis. Pulmonic Valve The pulmonic valve is likely normal. Tricuspid Valve There is trace tricuspid valve regurgitation. Tricuspid regurgitation envelope is inadequate for calculation of right ventricular systolic pressure. Great Vessels The asc aorta and aortic arch are normal in size. Venous The inferior vena cava is mildly dilated and collapses greater than 50% with inspiration. Pericardium/Pleural There is no evidence of pericardial effusion. Prior Study Comparison Changes noted compared to prior study dated: 08/27/2022. LVEF slightly lower. Measurements 2D Linear Measurements IVSd: 1.36 0.6-0.9/0.6-1.0 cm LVIDd: 4.88 3.9-5.3/4.2-5.9 cm LVIDd Index: 2.25 2.4-3.2/2.2-3.1 cm/m2 LVIDs: 3.21 2.0-3.6 cm LVPWd: 0.94 0.7-1.1 cm LA Diam: 4.00 2.7-3.8/3.0-4.0 cm LAIDs Index: 1.84 1.5-2.3 cm/m2 LV Mass: 263.29 67-162/88-224 g LV Mass Index: 121.33 43-95/49-115 g/m2 LVOT Diam: 2.00 3.0+(-)1.3 cm 2D Volumes LA Vol: 26.30 2D Systolic Function EF 4C: 54.30 >55% EF 2C: 53.50 >55% EF BiP: 54.90 >55% Mitral Valve MV Pk E: 0.95 MV PK A: 0.84 MV Decel Time: 199.00 E/A: 1.10 E'Lateral: 7.94 E'Medial: 6.09 E/E' Med: 15.60 E/E' Lat: 11.90 PHT: 58.00 MVA PHT: 3.79 Decel [place]: 4.76 Aortic Valve AoV Pk Calvin: 3.27 AoV Mn Calvin: 2.32 AoV VTI: 0.84 AoV Pk Grad: 43.00 Aov Mn Grad: 25.00 THANIA Cont.VTI: 0.91 AI Pk Calvin: 3.38 AI [place]: 2.33 LVOT LVOT Pk Calvin: 0.87 LVOT Mn Calvin: 0.60 LVOT VTI: 0.23 LVOT Pk Grad: 3.00 LVOT Mn Grad: 2.00 LVOT Diam: 2.00 LVOT Area: 3.14 Diastolic Function MV Pk E: 0.95 MV Pk A: 0.84 E/A: 1.10 E'Medial: 6.09 E/E' Med: 15.60 E' Laterial: 7.94 E/E' Lat: 11.90 Right Ventricle TAPSE (mm): 12.00 TVS' Calvin: 11.20 Tricuspid Valve RA Press: 15.00 Great Vessels Aorta Sinus of Valsalva: 3.60 2.0-3.5 cm Ao Asc: 3.70 2.1-3.4 cm Ao Arch: 3.00 Pulmonary Valve PV Pk Calvin: 0.59 Peak PV Grad: 1.00 Updated in Other Vendor System with Status of Final Luis Armando Fowler MD electronically signed on 09/02/2023 4:00:34 PM with status of Final
== END ==
LOC: HO.CARD 14:02
PROVIDERS: PCP Internal Medicine; Visit Provider Internal Medicine Cardiovascular Disease
DX: I35.0 Nonrheumatic aortic (valve) stenosis (principal)
CPT/HCPCS: 93306

== ENCOUNTER → 2023-08-31 14:05 | Outpatient (BNV) | payer MEDICARE, OTHER, SELFPAY | PROVIDERS: PCP Internal Medicine; Visit Provider Internal Medicine | DX: I35.2 Nonrheumatic aortic (valve) stenosis with insufficiency (principal) | CPT/HCPCS: 93306 ==

== ENCOUNTER 2023-09-06 12:43 | Outpatient (AMB) | payer MEDICARE, OTHER, SELFPAY ==
--- NOTE | 2023-09-06 12:51 | MHC.OFFVIS ---
Vital Signs 09/06/23 12:52 Height 5 ft 9 in Weight 220 lb 7.396 oz BMI 32.6 BP 120/82 Blood Pressure Location Lt brachial Position Sitting Pulse 72 Intake Visit Reasons: 6 mth f/up Intake Note: 6 month follow-up hearts doing good Manager Field Investigations Required: No Allergies prednisone Allergy (Unknown, Verified 05/30/23 13:21) GI Medication List - Last Reconciled 09/06/23 by Bolivar Helton MD amlodipine 5 mg PO DAILY atorvastatin 40 mg PO DAILY omeprazole magnesium (Prilosec) 10 mg PO DAILY rivaroxaban (Xarelto) 20 mg PO DAILY sitagliptin phosphate 100 mg PO DAILY HPI Comments Details: Thaddeus comes for follow-up. Overall he has been doing well. 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 He said therefore years to do all the work and he feels tired. However denies any significant shortness of breath or chest pain or lightheadedness with exertional activity. His recent echocardiogram showed worsening aortic stenosis with low-flow moderate to severe aortic stenosis. He denies any syncopal episodes. Denies any prolonged palpitation irregular heartbeat. Denies any lightheadedness, syncope. Denies any bleeding issues or neurologic events [facility] Medical History Raynaud disease Edema Aortic stenosis Hyperlipemia HTN (hypertension) Type 2 diabetes mellitus PAF (paroxysmal atrial fibrillation) Surgical History History of cataract surgery Family History Father No problems noted. Mother No problems noted. Paternal Grandfather CVD (cardiovascular disease) Paternal Grandmother No problems noted. Maternal Grandfather CVD (cardiovascular disease) Maternal Grandmother No problems noted. 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 Review of Systems Const Denies chills, Denies fatigue, Denies fever(s), Denies frequent falls, Denies weakness, Denies weight gain and Denies weight loss ENT Denies dizziness Card Denies chest pain, Denies leg edema, Denies lightheadedness, Denies palpitations, Denies dyspnea, Denies dyspnea on exertion, Denies orthopnea and Denies other (loss of consciousness) Resp Denies cough, Denies dyspnea and Denies dyspnea on exertion GI Denies hematochezia and Denies change in stool character Musc Denies abnormal gait, Denies muscle weakness, Denies numbness, Denies radiating pain into limb and Denies tingling Neuro Denies abnormal gait, Denies dizziness, Denies frequent falls, Denies numbness, Denies tingling and Denies weakness Endo Denies fatigue and Denies palpitations Physical Exam Vital Signs: Last Vital Signs Pulse 72 09/06/23 12:52 BP 120/82 09/06/23 12:52 BMI result Body Mass Index 32.6 Const General: cooperative, comfortable, no acute distress, alert and awake Nutritional Appearance: obese Orientation/consciousness: patient oriented x3 Limitations: ambulation with cane Neck Neck: Yes trachea midline, Yes supple and Yes no JVD Resp Effort & Inspection: normal respiratory effort Auscultation: clear to auscultation bilaterally Cardio Jugular venous distension: no JVD Palpation: normal PMI Rate: regular rate Rhythm: regular rhythm Heart sounds: S1 normal heart sound present, S2 normal heart sound present ( Soft) and Murmur heart sound present systolic late, decrescendo, crescendo and at the right sternal border GI Auscultation: normal bowel sounds Skin General skin exam: no rashes or lesions noted and ecchymosis Neuro General: patient oriented x3 and no focal motor deficits Extrem General: Yes no clubbing, cyanosis or edema Psych Appearance: grossly normal Assessment & Plan Assessment & Plan (1) Aortic stenosis: Comment: history of nonrheumatic aortic stenosis, previously mild. Echocardiogram just completed shows EF 60-65%, [id number] , mean gradient 24 mm of mercury, aortic valve area 1.43 centimeter squared. No cardinal symptoms of severe . Audible murmur on examination. He does have some evidence of fluid overload with leg edema, elevated RSVP and JVD. Code(s): I35.0 - Nonrheumatic aortic (valve) stenosis Category: Medical Plan: Aortic stenosis which is not moderate to severe by most recent echocardiogram, paradoxical low-flow. He has no cardinal symptoms associated with aortic stenosis. These symptoms were discussed with him. Advised to call me with any new symptoms. Follow-up echocardiogram in 6 months time and follow up in the clinic post echocardiogram. Continue aggressive risk factor modification with current blood pressure control with goal blood pressure less than 130/84. Continue high-intensity statin therapy. Currently on full oral anticoagulation Xarelto. (2) PAF (paroxysmal atrial fibrillation): Comment: history of paroxysmal atrial fibrillation, no recent episodes. No reports of heart palpitations. EKG today shows sinus rhythm. He is not on any rate slowing medications. He is on Xarelto for anticoagulation. No reports of bleeding. Code(s): I48.0 - Paroxysmal atrial fibrillation Category: Medical Plan: Paroxysmal atrial fibrillation without any obvious clinical recurrence at this point time. Continue rhythm control approach. Currently not on any medications and antiarrhythmic drug is not required as he has no symptoms related to it. Continue full oral anticoagulation, currently on Xarelto 20 mg, tolerating well. Quarterly renal function test should be pursued. Avoidance of stimulants was discussed. Follow up in the clinic in 6 months time, sooner p.r.n.. Thank you for allowing me to partake in his care Coding Level of Care Code Est Pt Level 4 (23641) Diagnoses Aortic stenosis I35.0 PAF (paroxysmal atrial fibrillation) I48.0
[2023-09-06 12:52] VITALS: BP 120/82; PULSE 72; BMI 32.6
== END 2023-09-06 13:23 | disposition home or self-care (01) ==
PROVIDERS: PCP Internal Medicine; Visit Provider Internal Medicine Cardiovascular Disease
DX: I35.0 Nonrheumatic aortic (valve) stenosis (principal); I48.0 Paroxysmal atrial fibrillation
CPT/HCPCS: 99214

== ENCOUNTER → 2023-09-06 12:43 | Outpatient (BNVA) | payer MEDICARE, OTHER, SELFPAY | PROVIDERS: PCP Internal Medicine; Visit Provider Internal Medicine Cardiovascular Disease | DX: I35.0 Nonrheumatic aortic (valve) stenosis (principal); I48.0 Paroxysmal atrial fibrillation; Z79.01 Long term (current) use of anticoagulants; Z79.899 Other long term (current) drug therapy | CPT/HCPCS: 99212 ==

== ENCOUNTER 2023-09-19 09:04 | Outpatient (REF) | payer MEDICARE, OTHER, SELFPAY ==
[2023-09-19 10:29] LABS: MANUAL DIFF FLAG NO
[2023-09-19 10:37] LABS: Appearance Urine Clear; Color Urine Yellow; Glucose Urine UA Negative (Negative); Leukocyte Esterase Urine Negative (Negative); Nitrite Urine Negative (Negative); Urine Blood Negative (Negative); Urine Ketones Negative (Negative); Urine Protein Negative (Neg-Trace)
[2023-09-19 10:38] LABS: Basophils Absolute Auto 0.1 X10*3/uL (0.0-0.2); Basophils Percent Auto 0.9 % (0-2); Eosinophils Absolute Auto 0.3 X10*3/uL (0.0-0.4); Eosinophils Percent Auto 4.1 % (0-4); Hematocrit 34.7 % (42.0-52.0); Hemoglobin 11.5 g/dl (14.0-18.0); Imm Gran Abs Auto 0.01 X10*3/uL (0.00-0.03); Imm Gran Pct Auto 0.2 % (0.0-0.4); Lymphocytes Absolute Auto 1.9 X10*3/uL (1.2-4.9); Lymphocytes Percent Auto 29.3 % (20-40); Mean Corpuscular HGB Conc 33.1 g/dl (31.0-36.0); Mean Corpuscular Hemoglobin 30.1 pg (27.0-33.0); Mean Corpuscular Volume 90.8 fL (80.0-98.0); Mean Platelet Volume 10.2 fL (9.4-12.4); Monocytes Absolute Auto 0.9 X10*3/uL (0.1-1.2); Monocytes Percent Auto 13.4 % (2-11); Neutrophils Absolute Auto 3.3 x10*3/uL (2.0-8.3); Neutrophils Percent Auto 52.1 % (45-73); Platelet Count 217 X10*3/uL (160-400); Red Blood Count 3.82 X10*6/uL (4.60-5.80); Red Cell Distribution Width 15.2 % (11.0-16.0); White Blood Count 6.3 X10*3/uL (4.8-10.8)
[2023-09-19 10:40] LABS: Bacteria Urine None Seen (None Seen); Hyaline Casts Urine 0-2 /LPF (0-2); RBC Urine 0-2 /HPF (0-2); Squamous Epithelial Cell Urine 0-2 /HPF (0-2); WBC Urine 0-5 /HPF (0-5)
[2023-09-19 10:46] LABS: Estimated Average Glucose 143 mg/dL; Hemoglobin A1c % 6.6 % (<6.0)
[2023-09-19 11:01] LABS: Creatinine Urine 56.58 mg/dL; Microalbumin Urine < 5.0 mg/L
[2023-09-19 11:15] LABS: Alanine Aminotransferase 14 U/L (0-40); Alkaline Phosphatase 147 U/L (39-117); Anion Gap 15 (12-20); Aspartate Amino Transferase 22 U/L (5-37); Bilirubin Total 0.7 mg/dL (0.0-1.0); Blood Urea Nitrogen 17 mg/dL (9-16); Calcium 9.6 mg/dL (8.4-10.2); Carbon Dioxide 22 mmol/L (22-29); Chloride 105 mmol/L (96-108); Cholesterol 111 mg/dL (<200); Estimated Glomerular Filt Rate > 60; Glucose Fasting 119 mg/dL (60-99); HDL Cholesterol 36 mg/dL (>40); LDL Cholesterol Calculated 63 mg/dL (<100); Potassium 4.1 mmol/L (3.3-5.1); Sodium 138 mmol/L (135-145); Total Protein 7.4 g/dL (6.5-8.0); Triglycerides 61 mg/dL (<150); Uric Acid 7.3 mg/dL (3.4-7.0)
== END 2023-09-19 09:05 | disposition home or self-care (01) ==
LOC: HO.HMGCLDS 09:04
PROVIDERS: PCP Internal Medicine; Referring Provider Internal Medicine Medical Oncology; Visit Provider Internal Medicine
DX: E11.9 Type 2 diabetes mellitus without complications (principal); K21.9 Gastro-esophageal reflux disease without esophagitis; M10.9 Gout, unspecified
CPT/HCPCS: 36415; 80053; 80061; 81001; 82043; 82570; 83036; 84550; 85025

== ENCOUNTER → 2024-03-05 13:55 | Outpatient (REF) | payer MEDICARE, OTHER, SELFPAY ==
--- NOTE | 2024-03-05 13:58 | CA_ITS ---
Transthoracic Echocardiogram Patient (Last, First, Middle): , Thaddeus, W Gender: Male Date of : 1945 Age: 79 Procedure Date: 03/05/2024 Procedure Type: Transthoracic Echocardiogram Location: OP Height: 177.8 cm Weight: 97.52 kg BSA: 2.15 m2 Heart Rate: bpm BP: 124 / 66 mmHg Airbrush Artist: NAT Referring MD: Bolivar Helton MD Reading Efficiency Course Director: Bolivar Helton MD Symptoms: I35.0 - Nonrheumatic aortic (valve) stenosis Study Quality: Adequate ECG Rhythm: Sinus Conclusions: - 1. Normal LV ejection fraction of 60 65% with pseudonormal filling pattern 2. Severely dilated left atrium 3. Severe aortic stenosis with mean gradient of 36 mm Hg 4. Normal RV systolic pressure with mildly elevated right atrial pressures 5. Mildly dilated ascending aorta at 3.7 cm Findings Left Ventricle Normal left ventricular size, thickness, and systolic function. The visually estimated ejection fraction is between 60-65%. Spectral Doppler is indicative of a pseudonormal filling pattern. E/E prime ratio is between 8 and 15 consistent with indeterminate filling pressures. Right Ventricle Normal right ventricular cavity size and systolic function. Atria The left atrium is severely dilated. Interatrial shunt cannot be excluded. The right atrium is mildly dilated. Aortic Valve There is moderate calcification of the aortic valve. There is severe aortic valve stenosis. The peak aortic gradient is 61 mmHg.The mean gradient is 36 mmHg. The aortic valve area is 0.62 cm2. There is mild aortic valve regurgitation. Mitral Valve There is mild anterior and moderate posterior mitral leaflet thickening. There is moderate mitral annular calcification. There is trace mitral valve regurgitation. There is no mitral valve stenosis. Pulmonic Valve The pulmonic valve is likely normal. Tricuspid Valve Likely normal tricuspid valve structure and function. There is mild tricuspid valve regurgitation. Mildly elevated right atrial pressure. There is no evidence of pulmonary hypertension. Great Vessels The pulmonary artery was not well visualized. There is mild dilatation of the ascending aorta measuring 3.70 cm. Venous The inferior vena cava is moderately dilated and collapses less than 50% with inspiration. Pericardium/Pleural The pericardium was not well visualized. Prior Study Comparison Changes noted compared to prior study dated: 08/31/2023. Severe aortic stenosis is noted Measurements 2D Linear Measurements IVSd: 0.91 0.6-0.9/0.6-1.0 cm LVIDd: 4.31 3.9-5.3/4.2-5.9 cm LVIDd Index: 2.00 2.4-3.2/2.2-3.1 cm/m2 LVIDs: 2.70 2.0-3.6 cm LVPWd: 1.01 0.7-1.1 cm LA Diam: 3.90 2.7-3.8/3.0-4.0 cm LAIDs Index: 1.81 1.5-2.3 cm/m2 LV Mass: 167.97 67-162/88-224 g LV Mass Index: 78.13 43-95/49-115 g/m2 LVOT Diam: 1.80 3.0+(-)1.3 cm 2D Systolic Function EF 4C: 64.60 >55% EF 2C: 58.30 >55% EF BiP: 61.30 >55% Mitral Valve MV Pk E: 1.21 MV PK A: 0.97 MV Decel Time: 229.00 E/A: 1.20 E'Lateral: 10.00 E'Medial: 7.72 E/E' Med: 15.70 E/E' Lat: 12.10 PHT: 67.00 MVA PHT: 3.28 Decel [place]: 5.27 Aortic Valve AoV Pk Calvin: 3.91 AoV Mn Calvin: 2.86 AoV VTI: 0.97 AoV Pk Grad: 61.00 Aov Mn Grad: 36.00 THANIA Cont.VTI: 0.62 LVOT LVOT Pk Calvin: 1.02 LVOT Mn Calvin: 0.67 LVOT VTI: 0.24 LVOT Pk Grad: 4.00 LVOT Mn Grad: 2.00 LVOT Diam: 1.80 LVOT Area: 2.54 Diastolic Function MV Pk E: 1.21 MV Pk A: 0.97 E/A: 1.20 E'Medial: 7.72 E/E' Med: 15.70 E' Laterial: 10.00 E/E' Lat: 12.10 Right Ventricle TAPSE (mm): 16.00 TVS' Calvin: 12.70 Tricuspid Valve TR Pk Calvin: 2.52 TR Pk Grad: 25.00 RA Press: 8.00 RVSP: 33.00 Great Vessels Aorta Sinus of Valsalva: 3.64 2.0-3.[address] [place]: 2.28 1.7-3.4 cm Ao Asc: 3.70 2.1-3.4 cm Updated in Other Vendor System with Status of Final Bolivar Helton MD electronically signed on 03/05/2024 4:37:01 PM with status of Final
== END ==
LOC: HO.CARD 13:55
PROVIDERS: PCP Internal Medicine; Visit Provider Internal Medicine Cardiovascular Disease
DX: I35.0 Nonrheumatic aortic (valve) stenosis (principal)
CPT/HCPCS: 93306

== ENCOUNTER → 2024-03-05 13:58 | Outpatient (BNV) | payer MEDICARE, OTHER, SELFPAY | PROVIDERS: PCP Internal Medicine; Visit Provider Internal Medicine Cardiovascular Disease | DX: I35.2 Nonrheumatic aortic (valve) stenosis with insufficiency (principal); I36.1 Nonrheumatic tricuspid (valve) insufficiency; I34.81 Nonrheumatic mitral (valve) annulus calcification | CPT/HCPCS: 93306 ==

== ENCOUNTER 2024-03-13 13:38 | Outpatient (REF) | payer MEDICARE, OTHER, SELFPAY ==
[2024-03-13 15:09] LABS: Hematocrit 35.1 % (42.0-52.0); Hemoglobin 11.5 g/dl (14.0-18.0); Mean Corpuscular HGB Conc 32.8 g/dl (31.0-36.0); Mean Corpuscular Volume 94.6 fL (80.0-98.0); Mean Platelet Volume 9.5 fL (9.4-12.4); Platelet Count 205 X10*3/uL (160-400); Red Blood Count 3.71 X10*6/uL (4.60-5.80); Red Cell Distribution Width 13.1 % (11.0-16.0)
[2024-03-13 15:14] LABS: INTERNATIONAL NORM RATIO 1.5 (0.9-1.1); Prothrombin Time 17.6 SEC (10.9-12.4)
[2024-03-13 15:38] LABS: Anion Gap 14 (12-20); Blood Urea Nitrogen 16 mg/dL (9-16); Calcium 9.9 mg/dL (8.4-10.2); Carbon Dioxide 23 mmol/L (22-29); Chloride 104 mmol/L (96-108); Estimated Glomerular Filt Rate > 60; Glucose Random 140 mg/dL (60-115); Potassium 4.4 mmol/L (3.3-5.1); Sodium 137 mmol/L (135-145)
== END 2024-03-13 13:39 | disposition home or self-care (01) ==
LOC: HO.LAB 13:38
PROVIDERS: PCP Internal Medicine; Visit Provider Internal Medicine Cardiovascular Disease
DX: I35.0 Nonrheumatic aortic (valve) stenosis (principal); I48.0 Paroxysmal atrial fibrillation
CPT/HCPCS: 36415; 80048; 85027; 85610; 93005; 99212

== ENCOUNTER 2024-03-13 13:38 | Outpatient (AMB) | payer MEDICARE, OTHER, SELFPAY ==
[2024-03-13 13:41] VITALS: PULSE 77
--- NOTE | 2024-03-13 13:41 | A.OFFVIS_ITS ---
Vital Signs 03/13/24 13:41 Pulse 77 Intake Visit Reasons: 6 mth f/up Intake Note: 6 month f/u. Pt feeling okay. 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 He says the other day while he was pushing his on a wheelchair, after 2 houses he has started getting short of breath. He then had to stop doing his activity. He denies any exertional chest pain. Denies any lightheadedness. Takes all his medications. Denies any prolonged palpitation irregular heartbeat. Takes all his medications. No bleeding issues or neurologic events. [facility] Medical History Raynaud disease Edema Aortic stenosis Hyperlipemia HTN (hypertension) Type 2 diabetes mellitus PAF (paroxysmal atrial fibrillation) Surgical History History of cataract surgery Family History Father No problems noted. Mother No problems noted. Paternal Grandfather CVD (cardiovascular disease) Paternal Grandmother No problems noted. Maternal Grandfather CVD (cardiovascular disease) Maternal Grandmother No problems noted. 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 Review of Systems Const Denies chills, Denies fatigue, Denies fever(s), Denies weight gain and Denies weight loss ENT Denies dizziness Card Denies chest pain, Denies leg edema, Denies lightheadedness, Denies palpitations, Denies dyspnea on exertion, Denies orthopnea and Denies other Resp Denies cough and Denies dyspnea on exertion GI Denies hematochezia and Denies change in stool character Musc Denies abnormal gait, Denies muscle weakness, Denies numbness, Denies radiating pain into limb and Denies tingling Neuro Denies abnormal gait, Denies dizziness, Denies numbness and Denies tingling Endo Denies fatigue and Denies palpitations Physical Exam Vital Signs: Last Vital Signs Pulse 77 03/13/24 13:41 Const General: cooperative, comfortable, no acute distress, alert and awake Nutritional Appearance: obese Orientation/consciousness: patient oriented x3 Limitations: ambulation with cane Neck Neck: Yes trachea midline, Yes supple and Yes no JVD Resp Effort & Inspection: normal respiratory effort Auscultation: clear to auscultation bilaterally Cardio Jugular venous distension: no JVD Palpation: normal PMI Rate: regular rate Rhythm: regular rhythm Heart sounds: S1 normal heart sound present and Murmur heart sound present systolic late, decrescendo, crescendo and at the right sternal border GI Auscultation: normal bowel sounds Skin General skin exam: no rashes or lesions noted and ecchymosis Neuro General: patient oriented x3 and no focal motor deficits Extrem General: Yes no clubbing, cyanosis or edema Psych Appearance: grossly normal Office Procedures EKG Details: EKG shows normal sinus rhythm nonspecific T-wave changes 61154-[id number], Complete Assessment & Plan Assessment & Plan (1) Aortic stenosis: Comment: history of nonrheumatic aortic stenosis, previously mild. Echocardiogram just completed shows EF 60-65%, [id number] , mean gradient 24 mm of mercury, aortic valve area 1.43 centimeter squared. No cardinal symptoms of severe . Audible murmur on examination. He does have some evidence of fluid overload with leg edema, elevated RSVP and JVD. Code(s): I35.0 - Nonrheumatic aortic (valve) stenosis Category: Medical Plan: Aortic stenosis which appears clinically and by echocardiogram he has severe. He is getting symptoms exertional shortness of breath which is concerning. I think he will benefit from evaluation for aortic valve replacement. Given his multiple risk factors of age transcatheter aortic valve replacement will be 1. Choice. We discussed the process of transcatheter aortic valve replacement starting with cardiac catheterization. This will evaluate for presence of coronary artery disease as well as evaluate hemodynamics of aortic stenosis. We discussed, risks, benefits, alternatives to the procedure. He understands and agrees. If this confirms will refer him for valve replacement to the valve team. We discussed the process of transcatheter aortic valve replacement. Understands agrees and is willing to pursue this process. (2) PAF (paroxysmal atrial fibrillation): Comment: history of paroxysmal atrial fibrillation, no recent episodes. No reports of heart palpitations. EKG today shows sinus rhythm. He is not on any rate slowing medications. He is on Xarelto for anticoagulation. No reports of bleeding. Code(s): I48.0 - Paroxysmal atrial fibrillation Category: Medical Plan: Paroxysmal atrial fibrillation without any obvious clinical recurrence at this point time. Continue aggressive risk factor modification. Continue full oral anticoagulation, currently on Xarelto 20 mg daily. No indication for antiarrhythmic drug therapy at this point time. Continue aggressive blood pressure control. Will follow up in the clinic in 4 weeks time, sooner p.r.n.. Thank you for allowing me to partake in his care Orders: Orders Cardiac Cath PATRICK Diagnostic 2 Weeks I35.0 - Nonrheumatic aortic (valve) stenosis Prothrombin Time INR Today I35.0 - Nonrheumatic aortic (valve) stenosis Basic Metabolic Panel Today I35.0 - Nonrheumatic aortic (valve) stenosis Complete Blood Count no Diff Today I35.0 - Nonrheumatic aortic (valve) stenosis Coding Level of Care Code Est Pt Level 4 (25305) Complex EM visit Add On G2211 Diagnoses Aortic stenosis I35.0 PAF (paroxysmal atrial fibrillation) I48.0 CPT Codes EKG - CPT: 83208-[id number], Complete ([id number])
== END 2024-03-13 14:39 | disposition home or self-care (01) ==
PROVIDERS: PCP Internal Medicine; Visit Provider Internal Medicine Cardiovascular Disease
DX: I35.0 Nonrheumatic aortic (valve) stenosis (principal); I48.0 Paroxysmal atrial fibrillation
CPT/HCPCS: 93010; 99214; G2211

== ENCOUNTER → 2024-03-27 23:59 | Outpatient (BNV) | payer MEDICARE, OTHER, SELFPAY | PROVIDERS: PCP Internal Medicine; Visit Provider Internal Medicine Cardiovascular Disease | DX: I35.0 Nonrheumatic aortic (valve) stenosis (principal) | CPT/HCPCS: 93460; 99152 ==

== ENCOUNTER 2024-04-16 14:10 | Outpatient (AMB) | payer MEDICARE, OTHER, SELFPAY ==
[2024-04-16 14:13] VITALS: BP 118/52; PULSE 82; BMI 32.9
--- NOTE | 2024-04-16 14:13 | MHC.OFFVIS ---
Vital Signs 04/16/24 14:13 Height 5 ft 9 in Weight 223 lb 1.725 oz BMI 32.9 BP 118/52 L Blood Pressure Location Lt brachial Position Sitting Pulse 82 Pulse Source Pulse Oximeter Intake Visit Reasons: 2wk after cath Health Tech Required: No Allergies prednisone Allergy (Unknown, Verified 04/16/24 14:19) GI Medication List - Last Reconciled 04/16/24 by Alana Asher, CB-C amlodipine 5 mg PO DAILY atorvastatin 40 mg PO DAILY gabapentin 100 mg PO BID [iron PO] omeprazole magnesium (Prilosec) 10 mg PO DAILY rivaroxaban (Xarelto) 20 mg PO DAILY sitagliptin phosphate 100 mg PO DAILY HPI HPI 2wk after cath: Details: Thaddeus is a 79-year-old male with past medical history of hypertension, hyperlipidemia, diabetes, paroxysmal atrial fibrillation, severe aortic stenosis who presents for follow-up after recent cardiac catheterization. Today he reports that he has been doing generally well since his last visit. He says he will notice some shortness of breath if he over exerts. He does not get short of breath with normal ADLs. 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 He denies chest discomfort at rest or with activity. No lightheadedness, palpitations, presyncope, syncope, falls. No PND, orthopnea or edema. He is compliant with his medications. No bleeding issues reported. [facility] Medical History (Updated 04/16/24 @ 17:34 by Alana Asher, MOTOR VEHICLE CLERK-C) Raynaud disease Edema Aortic stenosis Hyperlipemia HTN (hypertension) Type 2 diabetes mellitus PAF (paroxysmal atrial fibrillation) Surgical History (Updated 04/16/24 @ 17:34 by Alana Asher, MOTOR VEHICLE CLERK-C) History of cardiac cath History of cataract surgery Family History Father No problems noted. Mother No problems noted. Paternal Grandfather CVD (cardiovascular disease) Paternal Grandmother No problems noted. Maternal Grandfather CVD (cardiovascular disease) Maternal Grandmother No problems noted. 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 Review of Systems Const All systems reviewed & are unremarkable except as noted in HPI and below ENT Denies dizziness Card Denies chest pain, Denies chest pain at rest, Denies chest pain with activity, Denies rapid heart rate, Denies pedal edema, Denies edema, Denies leg edema, Denies lightheadedness, Denies palpitations, Denies dyspnea, Denies dyspnea on exertion and Denies orthopnea Resp Denies cough, Denies dyspnea and Denies dyspnea on exertion GI Denies hematochezia and Denies change in stool character Musc Details: Ambulates slowly Denies abnormal gait, Denies limited range of motion, Denies muscle cramps, Denies muscle weakness, Denies numbness, Denies radiating pain into limb, Denies stiffness and Denies tingling Neuro Denies abnormal gait, Denies dizziness, Denies numbness and Denies tingling Endo Denies palpitations Physical Exam Vital Signs: Last Vital Signs Pulse 82 04/16/24 14:13 BP 118/52 L 04/16/24 14:13 BMI result Body Mass Index 32.9 Const General: cooperative, healthy appearing, comfortable and no acute distress Orientation/consciousness: patient oriented x3 Neck Neck: Yes normal visual inspection Resp Effort & Inspection: normal respiratory effort Auscultation: clear to auscultation bilaterally, no crackles, no rales, no rhonchi and no wheezes Cardio Jugular venous distension: no JVD Rate: regular rate Rhythm: regular rhythm Heart sounds: Murmur heart sound present (3/6 systolic murmur right sternal border) and no rubs Neuro General: patient oriented x3 Extrem General: Yes normal to inspection and No no pedal edema Psych Appearance: grossly normal Mental Status: mental status grossly normal Speech and movement: Normal speech and movement present Assessment & Plan Assessment & Plan (1) Aortic stenosis: Code(s): I35.0 - Nonrheumatic aortic (valve) stenosis Category: Medical Plan: History of aortic stenosis. Most recent echo 03/05/2024 shows EF 60-65% with severely dilated left atrium, severe aortic stenosis with mean gradient 36 mmHg and aortic valve area 0.62 centimeter sq. He reports some shortness of breath with exertion. He denies chest discomfort or lightheadedness. He did undergo a cardiac catheterization on 03/27/2024 which shows only minimal luminal irregularities in the LAD and left circumflex. Right radial catheterization site is well healed. Test results reviewed with him in detail. Reviewed need for TAVR. He states understanding and is agreeable to proceed. Will refer to Dr. Costa for evaluation and treatment. Cardinal signs of severe reviewed with him. Emergency care if ever needed. Instructed on light physical activity as tolerated. Continue statin. Cardiology follow-up 4 months, sooner if needed. Expect this to be post TAVR. Appointment can be moved up if procedure is done sooner. (2) History of cardiac cath: Comment: 03/27/2024 left main normal lad and left circumflex each with minimal luminal irregularities, RCA normal Code(s): Z98.890 - Other specified postprocedural states Category: Surgical Plan: As above (3) PAF (paroxysmal atrial fibrillation): Code(s): I48.0 - Paroxysmal atrial fibrillation Category: Medical Plan: History of paroxysmal atrial fibrillation. Clinically controlled without recent known episodes. Pulse is regular on examination today. He is not requiring rate slowing medications. He is on Xarelto for anticoagulation. No bleeding issues reported. (4) HTN (hypertension): Code(s): I10 - Essential (primary) hypertension Category: Medical Plan: Well controlled at present. Continue amlodipine. Plan Time spent on chart review, documentation, interview and assessment Orders: Referrals Cardiac Surgery Referral I35.0 - Nonrheumatic aortic (valve) stenosis Coding Level of Care Code Est Pt Level 4 (46026) Complex EM visit Add On G2211 Diagnoses Aortic stenosis I35.0 History of cardiac cath Z98.890 PAF (paroxysmal atrial fibrillation) I48.0 HTN (hypertension) I10 Time Spent (min) 36
== END 2024-04-16 14:59 | disposition home or self-care (01) ==
PROVIDERS: PCP Internal Medicine; Visit Provider Nurse Practitioner Family
DX: I35.0 Nonrheumatic aortic (valve) stenosis (principal); Z98.890 Other specified postprocedural states; I48.0 Paroxysmal atrial fibrillation; I10 Essential (primary) hypertension
CPT/HCPCS: 99214; G2211

== ENCOUNTER → 2024-04-16 14:10 | Outpatient (BNVA) | payer MEDICARE, OTHER, SELFPAY | PROVIDERS: PCP Internal Medicine; Visit Provider Nurse Practitioner Family | DX: I10 Essential (primary) hypertension (principal); I48.0 Paroxysmal atrial fibrillation; I35.0 Nonrheumatic aortic (valve) stenosis; E78.5 Hyperlipidemia, unspecified; Z98.890 Other specified postprocedural states | CPT/HCPCS: 99212 ==

== ENCOUNTER → 2024-06-06 13:39 | Outpatient (BNVA) | payer MEDICARE, OTHER, SELFPAY | PROVIDERS: PCP Internal Medicine; Visit Provider Internal Medicine | DX: S46.912A Strain of unspecified muscle, fascia and tendon at shoulder and upper arm level, left arm, initial encounter (principal) ==

== ENCOUNTER 2024-06-08 14:14 | Outpatient (REF) | payer MEDICARE, OTHER, SELFPAY ==
--- NOTE | ~2024-06-08 | XR_ITS ---
EXAMINATION: XR SHOULDER, LEFT CLINICAL INFORMATION: S43.402A - Unspecified sprain of left shoulder joint, initial encounter COMPARISON: 11/10/2016. TECHNIQUE: Three views of the left shoulder. FINDINGS: Diffuse osteopenia, significantly progressed since 2017. No acute fracture, dislocation, or suspicious bone lesion. Normal alignment. Mild to moderate osteoarthritic changes with minimal joint, with undersurface small spurs. Mild arthritis of the AC joint with mild undersurface spurs. Posterior laterally downsloping acromion. Tiny subacromial spur. Subacromial space is preserved. Remainder of the bony and soft tissue structures appear normal. XR/XR shoulder LT min 2V IMPRESSION: 1. No acute findings. Osteopenia. 2. 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 Electronically signed by: Delmer Gray MD 06/08/2024 03:24 PM [facility]
--- OUTSIDE RECORDS SUMMARY | 2024-06-08 14:31 | XMS_ITS ---
Author Organization Anselmo Azevedo DO, FACP Address [address] [place] [id number] Care Team Providers Care [employer] Officer Name Role Phone Anselmo Azevedo Primary Care Provider ALLERGIES Allergen (clinical drug ingredient) Drug/Non Drug Allergy documented on EMR Reaction Allergy Type Onset Date Status lisinopril Lisinopril cough Drug Allergy Activ e REASON FOR REFERRAL Reason Cerumen impaction AD Decreased hearing AD Dry mouth Diagnosis 1 Impacted cerumen of right ear (H61.21) Referral Organization Anselmo Burton O, FACP Referring Provider First Name Anselmo Referring Provider Last Name Roberto Carlos Referring Provider Speciality Internal M edicine Referred Provider Emmett Clemens Referred Provider Specialty Otology, Lar yngology, Rhinology General Notes Radha Gastelum 024 03:03:06 PM EDT > patient will call Dr. Clemens's office to schedule an appointment, per that office's protocol. Referral Priority Routine REASON FOR VISIT 6 month f/u, Follow up type II diabetes mellitus MEDICATIONS Medication SIG (Take, Route, Frequency, Duration) Notes Start Date End Date Status Gabapentin 300 MG 1 capsule Orally Twi ce a day 10/29/2022 Active Ferrous Sulfate 325 (65 Fe) MG 1 tablet Orally Once a day 10/19/2022 Active Multivitamins 1 tablet Orally Once a day Active Vitamin D (Cholecalciferol) 50 MCG (1999 UT) 1 capsule Orally Once a day 09/10/2019 Active Januvia 100 MG 1 tablet Orally Once a day Active Furosemide 20 MG 1 tablet Orally Once a day 11/07/2012 Active amLODIPine Besylate 5 MG 1 tablet Orally Once a day Active Atorvastatin Calcium 40 MG 1 tablet Oral ly Once a day Active Xarelto 20 MG 1 tablet with food Orally Once a day Active Omeprazole 20 MG 1 capsule 30 minutes before morning meal Orally Once a day Active SOCIAL HISTORY Tobacco Use: Social History Observation Description Date Details (start date - stop date) Never Smoker NA - NA Sex Assigned At : Social History Observation Description Sex Assigned At Unknown Tobacco Use/Smoking Question Answer Notes Patient is a nonsmoker Additional Findings: Tobacco Non-User Cu rrent non-smoker, currently using no form of tobacco Alcohol Screen Question Answer Notes Did you have a drink contain ing alcohol in the past year? Yes How often did you have a dri nk containing alcohol in the past year? 2 to 3 times a week (3 points) How many drinks did you have on a typical day when you were drinking in the past year? 1 or 2 drinks (0 point) How often did you have 6 or more drinks on one occasion in the past year? Never (0 point) Points 3 Interpretation Negative VITAL SIGNS BMI 33.08 kg/m2 09/21/2023 Blood pressure systolic 112 mm Hg 09/21/19 24 Blood pressure diastolic 54 mm Hg 024 Height 69.0 in 09/21/2023 Weight 224 lbs 09/21/2023 Encounters Encounter Location Date Provider Diagnosis Anselmo Azevedo DO, [address] [phone] 09/21/2023 Anselmo Azevedo DM II (diabetes mellitus, type II), controlled E11.9 ; Gastroesophageal reflux disease without esophagitis K21.9 ; Vitamin D deficiency E55.9 ; Paroxysmal atrial fibrillation I48.0 ; Nonrheumatic aortic valve stenosis I35.0 ; Dry mouth R68.2 ; Impacted cerumen of right ear H61.21 and Iron deficiency E61.1 ASSESSMENTS Encounter Date Diagnosis Assessment Notes Treatment Notes Treatment Clinical Notes 09/21/2023 DM II (diabetes mellitus, type II), controlled (ICD-10 - E11.9) 09/21/2023 Gastroesophageal ref lux disease without esophagitis (ICD-10 - K21.9) 09/21/2023 Vitamin D deficiency (ICD-10 - E55.9) 09/21/2023 Paroxysmal atrial fibrillation (ICD-10 - I48.0) 09/21/2023 Nonrheumatic aortic valve stenosis (ICD-10 - I35.0) 09/21/2023 Dry mouth (ICD-10 - R68.2) Refer to ENT 09/21/2023 Impacted cerumen of right ear (ICD-10 - H61.21) 09/21/2023 Iron deficiency (ICD -10 - E61.1) PLAN OF TREATMENT Medication Medication Name Sig Start Date Stop Date Notes Gabapentin 300 MG 1 capsule Orally Twi ce a day 10/29/2022 Ferrous Sulfate 325 (65 Fe) MG 1 tablet Orally Once a day 10/19/2022 Multivitamins 1 tablet Orally Once a day Vitamin D (Cholecalciferol) 50 MCG (1999 UT) 1 capsule Orally Once a day 09/10/2019 Januvia 100 MG 1 tablet Orally Once a day Furosemide 20 MG 1 tablet Orally Once a day 11/07/2012 amLODIPine Besylate 5 MG 1 tablet Orally Once a day Atorvastatin Calcium 40 MG 1 tablet Orally Once a day Xarelto 20 MG 1 tablet with food O rally Once a day Omeprazole 20 MG 1 capsule 30 minutes before morning meal Orally Once a day Treatment Notes Assessment Notes Dry mouth Refer to ENT Referrals Referral Date Details Cerumen impaction AD Decreased hearing AD Dry mouth, Emmett Clemens Next Appt Details Follow Up: 3 Months, Reason: follow up visit Progress Notes * Examination Category Sub-Category Detail Notes General Examination GENERAL APPEARANCE: in no ac [place] distress, well developed, well nourished HEAD: normocephalic, atrau matic EYES: sclera non-icteric EARS: auditory canal obscu red with wax AD THROAT: clear HEART: regular rate and rhy thm, S1, S2 normal, grade 2/6 systolic murmur LUNGS: clear to auscultatio n bilaterally ABDOMEN: normal, bowel sounds present, soft, nontender, nondistended SKIN: warm and dry EXTREMITIES: 1+ pitting edema low er extremities PSYCH: alert, oriented, cog nitive function intact ORAL CAVITY: mucosa dry Consultation Request Notes Referral Date Referring Provider Referred Provider Not es 09/21/2023 Anselmo Azevedo Ram Gopal Cerume n impaction AD Decreased hearing AD Dry mouth
--- OUTSIDE RECORDS SUMMARY | 2024-06-08 14:31 | XMS_ITS | Patient Health Record ---
Author Organization [facility] Address [address] [place] [address] Care Team Providers Care Garment Form Assembler Name Role Phone Anselmo Azevedo MD Primary Care Provider Unavail able Kelsie Coughlin Unavailable [phone] Helio Guillory Unavailable [phone] Allergies Allergen (clinical drug ingredient) Drug/Non Drug Allergy documented on EMR Reaction Allergy Type Onset Date Status PredniSONE Unknown Drug Allergy Active Results Component Value Reference Range Notes HEMOGLOBIN A1C (GLYCOHEMOGLO BIN) Reviewed date:09/15/2023 01:31:40 PM Interpretation: Performing Lab: Notes/Report: HEMOGLOBIN A1C % (HH) 6.7 Reason For Referral No Information Medications Medication SIG (Take, Route, Frequency, Duration) Notes Start Date End Date Status Amoxicillin-Pot Clavulanate 875 875-125 MG one tab Orally every 12 hrs for 10 day(s) 01/10/2023 Not-Taking Amoxicillin-Pot Clavulanate 875 875-125 MG one tab Orally every 12 hrs for 30 days 04/21/2023 Not-Taking Indomethacin 50 MG 1 capsule with food Orally Three times a day for 10 days 05/13/2014 Not-Taking Cipro 500 MG 1 tablet Orally ever y 12 hrs for 30 days 01/17/2023 Not-Taking glyburide 5mg Not-Ta nikko Xarelto 20 MG Orally Active Colcrys 0.6 MG 1 tablet Orally Once a day for 30 day(s) 05/13/2014 Not-Taking Multi Vitamin/Minerals Active Extra-Depth Diabetic Shoes with 3 Pair Custom heat-molded multi-density innersoles . for 1 year . Dx:niddm with neuropathy, foot deformity and preulcerative skin lesions for . Not-Taking Januvia Active Extra-Depth Diabetic Shoes with 3 Pair Custom heat-molded multi-density innersoles . for 1 year . Dx:niddm with neuropathy, foot deformity and preulcerative skin lesions for . 02/06/2014 Not-Taking Furosemide 20 MG Orally Act esha Aspirin Not-Taking Atorvastatin Calcium 40 MG 1 tablet Orally Once a day for 30 day(s) Active Colchicine 0.6 MG Orally No t-Taking Voltaren 1 % as directed Externally Active Metformin & Diet Manage Prod 1,000mg twice a day Not-Taking amLODIPine Besylate Active Metoprolol Succinate ER 25 MG 1 tablet Orally Once a day Not-Taking Simvastatin 40 MG Orally No t-Taking Immunizations Vaccine Route Administration Date Status Comme nts COVID-19 Moderna Vaccine Unknown 04/13/2021 Administere d 1st 05/22/20 2nd 06/12/20 Influenza Unknown 02/12/2015 Administered Influenza Unknown 03/08/2017 Administered Influenza Unknown 04/17/2018 Administered Influenza Unknown 05/11/2019 Administered Influenza Unknown 03/12/2020 Administered Pneumococcal Unknown 03/03/2015 Administered Social History Tobacco Use: Social History Observation Description Date Details (start date - stop date) Never Smoker NA - NA Tobacco Use/Smoking Question Answer Notes Are you a: nonsmoker Additional Findings: Tobacco Non-User Current no n-smoker Alcohol Screen Question Answer Notes Did you have a drink contain ing alcohol in the past year? Yes How often did you have a dri nk containing alcohol in the past year? Monthly or less (1 point) Points 1 Interpretation Negative Tobacco use other than smoking: Question Answer Notes Are you an other tobacco user? No Section Notes: \ \ \ \ \ \ \ \ \ \ \ \ \ \ \ \ \ \ \ \ \ \ \ \ \ \ \ \ \ \ \ \ \ \ \ \ \ \ \ Problems Problem Type SNOMED Code ICD Code Onset Dates Problem Status W/U Status Risk Notes Problem Polyneuropathy due to diabetes mellitus type I (890839623) Type 1 diabetes mellitus with diabetic polyneuropathy (E10.42) Active confirmed Problem Unspecified atherosclerosis of [place] arteries of extremities, bilateral legs (I70.203) Active confirmed Problem Chronic ulcer of foot (414968305) Non-pressure chronic ulcer of other part of left foot with fat layer exposed (L97.522) Active confirmed Problem Polyneuropathy due to type 2 diabetes mellitus (580544248) Type 2 diabetes mellitus with diabetic polyneuropathy (E11.42) Active confirmed Problem Acquired hammer toe of right foot (9880348499202319 ) Other hammer toe(s) (acquired), right foot (M20.41) Active confirmed Problem Acquired hammer toe of left foot (6714997076043237 ) Other hammer toe(s) (acquired), left foot (M20.42) Active confirmed Vital Signs Blood pressure diastolic 70 mm Hg 03/21/2024 Height 5 ft 10 in in 03/21/2024 Blood pressure systolic 120 mm Hg 03/21/2024 Weight 215 lbs 03/21/2024 BMI 30.85 kg/m2 03/21/2024 Procedures Procedure Date Ordered Date Performed Result Body Sit e 38750-SHVTYLQ NAIL, 6 OR MORE 03/21/2024 N/A 26118-AREF SKIN LESIONS, OVER 4 03/21/2024 N/A Encounters Encounter Location Date Provider Diagnosis [facility] [address] 06/23/2023 HelioPatel Tinea unguium B35.1 ; Pain in right toe(s) M79.674 ; Pain in left toe(s) M79.675 ; Type 2 diabetes mellitus with diabetic polyneuropathy E11.42 ; Other hammer toe(s) (acquired), left foot M20.42 ; Other hammer toe(s) (acquired), right foot M20.41 ; Unspecified atherosclerosis of [place] arteries of extremities, bilateral legs I70.203 and Localized edema R60.0 [facility] [address] 09/15/2023 Helio Guillory Tinea unguium B35.1 ; Pain in right toe(s) M79.674 ; Pain in left toe(s) M79.675 ; Type 2 diabetes mellitus with diabetic polyneuropathy E11.42 ; Other hammer toe(s) (acquired), left foot M20.42 ; Other hammer toe(s) (acquired), right foot M20.41 ; Unspecified atherosclerosis of [place] arteries of extremities, bilateral legs I70.203 and Localized edema R60.[address] [address] 12/19/2023 Helio Guillory Tinea unguium B35.1 ; Pain in right toe(s) M79.674 ; Pain in left toe(s) M79.675 ; Type 2 diabetes mellitus with diabetic polyneuropathy E11.42 ; Other hammer toe(s) (acquired), left foot M20.42 ; Other hammer toe(s) (acquired), right foot M20.41 ; Unspecified atherosclerosis of [place] arteries of extremities, bilateral legs I70.203 and Localized edema R60.[address] [address] 03/21/2024 Kelsie Coughlin Type 2 diabetes mellitus with diabetic polyneuropathy E11.42 and Tinea unguium B35.1 Assessments Encounter Date Diagnosis (ICD Code) Assessment Notes Treatment Notes Treatment Clinical Notes Section Notes 06/23/2023 Tinea unguium (ICD-10 - B35.1) 06/23/2023 Pain in right toe(s) (ICD-10 - M79.674) 09/15/2023 Tinea unguium (ICD-10 - B35.1) 09/15/2023 Pain in right toe(s) (ICD-10 - M79.674) 12/19/2023 Tinea unguium (ICD-10 - B35.1) 03/21/2024 Type 2 diabetes mellitus with diabetic polyneuropathy (ICD-10 - E11.42) 03/21/2024 Tinea unguium (ICD-10 - B35.1) 12/19/2023 Pain in right toe(s) (ICD-10 - M79.674) 09/15/2023 Pain in left toe(s) (ICD-10 - M79.675) 06/23/2023 Pain in left toe(s) (ICD-10 - M79.675) 06/23/2023 Type 2 diabetes mellitus with diabetic polyneuropathy (ICD-10 - E11.42) 09/15/2023 Type 2 diabetes mellitus with diabetic polyneuropathy (ICD-10 - E11.42) 12/19/2023 Pain in left toe(s) (ICD-10 - M79.675) 12/19/2023 Type 2 diabetes mellitus with diabetic polyneuropathy (ICD-10 - E11.42) 09/15/2023 Other hammer toe(s) (acquired), left foot (ICD-10 - M20.42) 06/23/2023 Other hammer toe(s) (acquired), left foot (ICD-10 - M20.42) 06/23/2023 Other hammer toe(s) (acquired), right foot (ICD-10 - M20.41) 09/15/2023 Other hammer toe(s) (acquired), right foot (ICD-10 - M20.41) 12/19/2023 Other hammer toe(s) (acquired), left foot (ICD-10 - M20.42) 12/19/2023 Other hammer toe(s) (acquired), right foot (ICD-10 - M20.41) 09/15/2023 Unspecified atherosclerosis of [place] arteries of extremities, bilateral legs (ICD-10 - I70.203) 06/23/2023 Unspecified atherosclerosis of [place] arteries of extremities, bilateral legs (ICD-10 - I70.203) 06/23/2023 Localized edema (ICD-10 - R60.0) 09/15/2023 Localized edema (ICD-10 - R60.0) 12/19/2023 Unspecified atherosclerosis of [place] arteries of extremities, bilateral legs (ICD-10 - I70.203) 12/19/2023 Localized edema (ICD-10 - R60.0) Plan Of Treatment Pending Test Test Name Order Date X ray : Ankle, right 2V 05/13/2014 *Uric Acid, Serum 05/13/2014 *CBC With Differential/Platelet 05/13/19 15 *Sedimentation Rate-Westergren 5 X ray : Foot, right 3V 02/06/2014 X ray : Foot, right 3V 05/13/2014 X ray : Foot, right 3V 01/17/2023 96139-NUZJFDB NAIL, 6 OR MORE 01/16/2018 15817-TWMYRVJ NAIL, 6 OR MORE 03/21/2024 86262-LDQKTIH NAIL, 6 OR MORE 04/13/2017 01079-XGXWOYG NAIL, 6 OR MORE 07/18/2017 25373-BWMKQKW NAIL, 6 OR MORE 10/17/2017 31435-RCRTHMA NAIL, 6 OR MORE 04/17/2018 36764-FULWPYQ NAIL, 1-5 07/12/2016 14916-EEHAUBL NAIL, 1-5 10/13/2016 58025-CSZFMBH NAIL, 1-5 01/12/2017 66795-JYITPGD NAIL, 1-5 06/30/2015 25200-CJQIHVS NAIL, 1-5 10/01/2015 44646-NXNFWHQ NAIL, 1-5 01/08/2016 88144-LHPLPOG NAIL, 1-5 04/12/2016 64275-VMGPFRA NAIL, 1-5 10/10/2014 96546-JJLTGPE NAIL, 1-5 02/12/2015 37430- Debride <25 sq cm 02/23/2023 31108-QELNTOT SKIN/TISSUE 03/16/2023 24587-XGINBBM SKIN/TISSUE 01/10/2023 24068-MQHMGMV SKIN/TISSUE 05/05/2023 76334- I&D ABSCESS-COMPLICATED,MULTI 68638-FETF SKIN LESIONS, OVER 4 07/19/19 18 36387-NVKB SKIN LESIONS, OVER 4 04/17/20 18 36122-EAQN SKIN LESIONS, OVER 4 03/21/20 24 55208-TXSR SKIN LESIONS, OVER 4 07/18/19 19 29136-FCDE SKIN LESIONS, OVER 4 10/17/19 19 41557-NAIU SKIN LESIONS, OVER 4 01/18/20 19 05703-KAKA SKIN LESIONS, OVER 4 04/18/20 19 60405-JYLD SKIN LESIONS, OVER 4 07/05/19 20 27419-FEKA SKIN LESIONS, OVER 4 09/27/19 20 88759-KBGH SKIN LESIONS, OVER 4 12/26/19 20 11068-KTVJ SKIN LESIONS, OVER 4 03/19/20 20 80306-XAAS SKIN LESIONS, OVER 4 06/23/19 21 12483-FGGP SKIN LESIONS, OVER 4 09/23/19 21 32803-WZCZ SKIN LESIONS, OVER 4 12/26/19 21 81643-LDXT SKIN LESIONS, OVER 4 03/30/20 21 50607-VHJF SKIN LESIONS, OVER 4 07/02/19 22 35786-KOIX SKIN LESIONS, OVER 4 01/17/20 18 63139-IHNU SKIN LESIONS, OVER 4 10/18/19 18 87138-VMAI SKIN LESIONS, OVER 4 01/13/20 17 37501-ZKNM SKIN LESIONS, OVER 4 04/13/20 17 18186-LWIA SKIN LESIONS, OVER 4 02/13/20 15 74187-IJXQ SKIN LESIONS, OVER 4 06/12/19 15 25530-OQFN SKIN LESIONS, OVER 4 10/11/19 15 24562-QYJX SKIN LESIONS, OVER 4 04/17/20 14 10592-RZZN SKIN LESIONS, OVER 4 04/12/20 16 10831-CNAN SKIN LESIONS, OVER 4 01/08/20 16 58048-DBJM SKIN LESIONS, OVER 4 10/01/19 16 32788-KUDA SKIN LESIONS, OVER 4 06/30/19 16 08775-ZUMD SKIN LESIONS, OVER 4 07/13/19 17 74937-AAGW SKIN LESIONS, OVER 4 10/14/19 17 34223-GWWX SKIN LESIONS, 2 TO 4 02/07/20 14 38434-JRHS NAIL(S) 02/06/2014 31840-YHJC NAIL(S) 04/17/2014 88130-LEQS NAIL(S) 10/10/2014 87539-FMFE NAIL(S) 06/12/2014 19080-OYXQ NAIL(S) 02/12/2015 38554-JVYS NAIL(S) 07/12/2016 51232-FNMQ NAIL(S) 01/12/2017 17824-TUWP NAIL(S) 10/13/2016 41028-NZEQ NAIL(S) 06/30/2015 41070-LQNR NAIL(S) 10/01/2015 97976-OWYZ NAIL(S) 01/08/2016 36039-NSTF NAIL(S) 04/12/2016 28200-QJBFVMPH OF HEMATOMA/FLUID 018 92117-MDRKEDEP OF HEMATOMA/FLUID 023 Next Appt Details Provider Name:Reed Burt , 06/22/2024 12:30:00 PM, [address] [facility], [place], [address], Insurance Providers Payer Name Payer Address Payer Phone Subscriber Number Group Number Insured Name Patient Relationship to Insured Coverage Start Date Coverage End Date [employer] [address] [facility] [place] [address] [phone] [id number] Thaddeus Velásquez Self - patient is the insured [address] [facility] [address] [place] [address] [id number] Thaddeus Velásquez Self - patient is the insured Medical (General) History Medical History History ICD Code Arthritis Back,Hip,and Knee pain Broken bones Cataracts Chicken pox Measles Mumps type II diabetes Neuropathy Sciatica pericarditis Surgical History Surgery Date(Month/Year) cystoscopy cataract 2010 Hospital[place] History Reason Date[place] [facility] [place] [facility] [place]. [place] [facility] [place] light headed, sweaty. 03/2016
--- OUTSIDE RECORDS SUMMARY | 2024-06-08 14:32 | XMS_ITS ---
Author Organization Anselmo Azevedo DO, FACP Address [address], [place] [id number] Care Team Providers Care Facility Maintenance Helper Name Role Phone Anselmo Azevedo Primary Care Provider [phone] REASON FOR VISIT Refill and message MEDICATIONS Medication SIG (Take, Route, Fr equency, Duration) Notes Start Date End Date Status Januvia 100 MG 1 tablet Orally Once a day for 90 days Active Encounters Encounter Location Date Provider Diagnosis [facility] [address] [place], [place] [id number] 10/14/2023 Anselmo Azevedo PLAN OF TREATMENT Medication Medication Name Sig Start Date Stop Date Notes Januvia 100 MG 1 tablet Orally Once a day for 90 days
--- OUTSIDE RECORDS SUMMARY | 2024-06-08 14:32 | XMS_ITS ---
Author Organization [facility] Address [address] [place] [address] Care Team Providers Care Jig Grinder Set Up Operator Name Role Phone Anselmo Azevedo MD Primary Care Provider Unavail able Kelsie Coughlin Unavailable [phone] Helio Guillory Unavailable [phone] Allergies Allergen (clinical drug ingredient) Drug/Non Drug Allergy documented on EMR Reaction Allergy Type Onset Date Status PredniSONE Unknown Drug Allergy Active REASON FOR VISIT Painful nail(s) aggrevated by shoes and causing difficulty standing/walking., PCP - 12/2022 Medications Medication SIG (Take, Route, Frequency, Duration) Notes Start Date End Date Status Extra-Depth Diabetic Shoes with 3 Pair Custom heat-molded multi-density innersoles . for 1 year . Dx:niddm with neuropathy, foot deformity and preulcerative skin lesions for . 02/06/2014 Not-Taking Extra-Depth Diabetic Shoes with 3 Pair Custom heat-molded multi-density innersoles . for 1 year . Dx:niddm with neuropathy, foot deformity and preulcerative skin lesions for . Not-Taking glyburide 5mg Not-[place] n[place] Colcrys 0.6 MG 1 tablet Orally Once a day for 30 day(s) 05/13/2014 Not-Taking Indomethacin 50 MG 1 capsule with food Orally Three times a day for 10 days 05/13/2014 Not-Taking Aspirin Not-Taking Colchicine 0.6 MG Orally No t-Taking Metoprolol Succinate ER 25 MG 1 tablet Orally Once a day Not-Taking Simvastatin 40 MG Orally No t-Taking Metformin & Diet Manage Prod 1,000mg twice a day Not-Taking Januvia Active Xarelto 20 MG Orally Active Multi Vitamin/Minerals Active Amoxicillin-Pot Clavulanate 875 875-125 MG one tab Orally every 12 hrs for 30 days 04/21/2023 Not-Taking Amoxicillin-Pot Clavulanate 875 875-125 MG one tab Orally every 12 hrs for 10 day(s) 01/10/2023 Not-Taking Furosemide 20 MG Orally Act esha Atorvastatin Calcium 40 MG 1 tablet Orally Once a day for 30 day(s) Active Voltaren 1 % as directed Externally Active amLODIPine Besylate Active Cipro 500 MG 1 tablet Orally ever y 12 hrs for 30 days 01/17/2023 Not-Taking Social History Tobacco Use: Social History Observation [...] other tobacco user? No Section Notes: \ Vital Signs Height 5 ft 10 in in 09/15/2023 Weight 215 lbs 09/15/2023 BMI 30.85 kg/m2 09/15/2023 Encounters Encounter Location Date Provider Diagnosis [facility] [address] [place] [address] 09/15/2023 Helio Guillory Tinea unguium B35.1 ; Pain in right toe(s) M79.674 ; Pain in left toe(s) M79.675 ; Type 2 diabetes mellitus with diabetic polyneuropathy E11.42 ; Other hammer toe(s) (acquired), left foot M20.42 ; Other hammer toe(s) (acquired), right foot M20.41 ; Unspecified atherosclerosis of [place] arteries of extremities, bilateral legs I70.203 and Localized edema R60.0 Assessments Encounter Date Diagnosis (ICD Code) Assessment Notes Treatment Notes Treatment Clinical Notes Section Notes 09/15/2023 Tinea unguium (ICD-10 - B35.1) 09/15/2023 Pain in right toe(s) (ICD-10 - M79.674) 09/15/2023 Pain in left toe(s) (ICD-10 - M79.675) 09/15/2023 Type 2 diabetes mellitus with diabetic polyneuropathy (ICD-10 - E11.42) 09/15/2023 Other hammer toe(s) (acquired), left foot (ICD-10 - M20.42) 09/15/2023 Other hammer toe(s) (acquired), right foot (ICD-10 - M20.41) 09/15/2023 Unspecified atherosclerosis of [place] arteries of extremities, bilateral legs (ICD-10 - I70.203) 09/15/2023 Localized edema (ICD-10 - R60.0) Plan Of Treatment Medication Medication Name Sig Start Date Stop Date Notes Voltaren 1 % as directed Externally Next Appt Details Follow Up: 3 Months, Reason: Provider Name:Reed Burt , 06/22/2024 12:30:00 PM, [address] [place] [address], [phone], Procedure Notes * Category Sub-Category Detail Notes Debride Nail 6-10 Nail debridement Nail debridem ent performed extensively to reduce/remove overall nail length and girth, subungual debris, and necrotic tissue, by manual and electrical means with use of a nail nipper and/or dremel, to more viable healthy nail plate or bed tissue 6-10. Silver nitrate used for any petechial bleeding as necessary. Patient chooses, no pharmaceutical tx (47887) Keratoma Treatment Parring or Cutting o f Benign Hyperkeratotic Lesion(s) 62429 ( >4 Lesions) - The Benign hyperkeratotic lesions, as described above were pared, and/or cut utilizing a sterile #15 blade, tissue nippers, and/or dremel Progress Notes * Thaddeus VELÁSQUEZ JrDOB:1944 (78 yo M)Acc No.[id number]:09/15/2023 Progress Note Patient:?Thaddeus Velásquez Provider:?Helio Guillory DPM :1945???Age:78 Y???Sex:Male Tanner e:09/15/2023 Address:[address] [place] [address] [address] [place] Pcp:Anselmo Azevedo MD Subjective: * Chief Complaints: * ???Painful nail(s) aggrevate d by shoes and causing difficulty standing/walking.PCP - 12/2022 * HPI: ???Toe pain:?Nature:?sharp, throbbing, tenderness, swelling.?Location:?3rd toe, Right foot.?Onset/Cause:?gradual, unknown.?Aggrevated by:?any pressure.?Painful Nails:?Pt States Last PCP Visit:?Date:?05/17/2023 ???Foot Pain:?Nature:?sharp, stabbing, swelling.?Location:?RIGHT, Great toe joint.?Duration:?1 month.?Course:?worse.?Severity/Quality:?moderate, severe.? * ROS:?General/Constitutional:?Nausea?denies.?Vomiting?denies.?Hunger Thirst?denies.?Loss appetite?denies.?Chills?denies.?Fatigue?denies.?Fever?denies.?Night Sweats?denies.?Unexplained weight loss?denies.?Unexplained weight gain?denies.?HEENTM:?Dentures?denies.?Dizziness?denies.?Glasses/contacts?denies.?Retinopathy?de nies.?Blurred/double vision?denies.?TMJ?denies.?Discharge/drainage?denies.?Implants?denies.?Sore throat?denies.?Dental implants?denies.?Hard of hearing ?denies.?Difficulty chewing/swallowing/speaking?denies.?Nose bleeds?denies.?Sore mouth?denies.?Respiratory:?On Oxygen?denies.?Pneumonia/pleurisy?denies.?Bronchitis?denies.?Emphysema?denies.?C oughing?denies.?Cough blood?denies.?Shortness of breath?denies.?Wheezing?denies.?Cardiovascular:?Pacemaker?denies.?MVP?denies.?WPW?denies.?CHF?denies.?Heart attack?denies.?Septal defect?denies.?Rapid beat?denies.?Chest pain ?denies.?Atrial Fib.?denies.?Murmur/Palpitations?denies.?Gastrointestinal:?Hemorrhoids?denies.?Stomach/Abdominal pain?denies.?Dark blood stool?denies.?Irritable bowel ?denies.?Constipation?denies.?Diarrhea?denies.?Hematology:?Swelling?denies.?Clots?denies.?Varicose Veins?denies.?Bruising?denies.?Bleeding problem?denies.?Genitourinary:?Blood urine?denies.?Frequent/Painfu/urination/bladder control?denies.?Kidney stones?denies.?Infection (UTI)?denies.?Nephropathy?denies.?sex trans dis (STD)?denies.?Prostate?denies.?Musculoskeletal:?Hammertoes?denies.?Bunions?denies.?Back Pain?denies.?Muscle Cramps/ Resting?denies.?Muscle cramps / walking?denies.?Generalized aches and pains?denies.?Weakness?denies.?Integ.:?Patel?denies.?Scars?denies.?Corns/calluses?denies.?Ingrown nails?denies.?Painful nails?denies.?Open Sores?denies.?Rashes?denies.?Neurologic:?Difficulty sleeping?denies.?Brain disorder?denies.?Numbness?admits.?Balance trouble?denies.?Confusion?denies.?Fainting/blackouts?denies.?Tingling?denies.?Tr emors?denies.? * Medical History:? * Surgical History:?cystoscopy cataract 2010 * [place]/Major Diagno [place]ic [place] [place] lily[place]. [place] [place]. [place] [place] * Family History:?Mother: dece ased.?Father: , diagnosed with Unspecified cerebral artery occlusion with cerebral infarction.? * Social History:?Tobacco Use:?Tobacco Use/Smoking?Are you a:?nonsmoker ?Additional Findings: Tobacco Non-User?Current non-smoker ?Tobacco use other than smoking?Are you an other tobacco user??No ???Drugs/Alcohol:?Drugs?Have you used drugs other than those for medical reasons in the past 12 months??No ?Alcohol Screen?Did you have a drink containing alcohol in the past year??Yes ?How often did you have a drink containing alcohol in the past year??Monthly or less (1 point) ?Points?1 ?Interpretation?Negative ???Miscellaneous:?Caffeine: yes, frequency:, 1-2 cups per day. ?Children: yes. ?Exercise: yes, walking. ?Marital status: . 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 ???\. * Medications:?TakingamLODIPin e Besylate Atorvastatin Calcium 40 MG Tablet 1 tablet Orally Once a dayFurosemide 20 MG Tablet Orally Januvia Multi Vitamin/Minerals Xarelto 20 MG Tablet Orally Voltaren 1 % Gel as directed Externally Taking amLODIPine Besylate Taking Atorvastatin Calcium 40 MG Tablet 1 tablet Orally Once a dayTaking Furosemide 20 MG Tablet Orally Taking Januvia Taking Multi Vitamin/Minerals Taking Xarelto 20 MG Tablet Orally Taking Voltaren 1 % Gel as directed Externally Not-Taking/PRNCipro 500 MG Tablet 1 tablet Orally every 12 hrsAmoxicillin-Pot Clavulanate 875 875-125 MG Tablet one tab Orally every 12 hrsAmoxicillin-Pot Clavulanate 875 875-125 MG Tablet one tab Orally every 12 hrsMetformin & Diet Manage Prod 1,000mg twice a daySimvastatin 40 MG Tablet Orally Metoprolol Succinate ER 25 MG Tablet Extended Release 24 Hour 1 tablet Orally Once a dayColchicine 0.6 MG Tablet Orally Aspirin Extra-Depth Diabetic Shoes with 3 Pair Custom heat-molded multi-density innersoles . . for 1 year . Dx:niddm with neuropathy, foot deformity and preulcerative skin lesionsExtra-Depth Diabetic Shoes with 3 Pair Custom heat-molded multi-density innersoles . . for 1 year . Dx:niddm with neuropathy, foot deformity and preulcerative skin lesionsColcrys 0.6 MG Tablet 1 tablet Orally Once a dayglyburide 5mg Indomethacin 50 MG Capsule 1 capsule with food Orally Three times a dayMedication List reviewed and reconciled with the patientNot-Taking/PRN Cipro 500 MG Tablet 1 tablet Orally every 12 hrsNot-Taking/PRN Amoxicillin-Pot Clavulanate 875 875-125 MG Tablet one tab Orally every 12 hrsNot-Taking/PRN Amoxicillin-Pot Clavulanate 875 875-125 MG Tablet one tab Orally every 12 hrsNot-Taking/PRN Metformin & Diet Manage Prod 1,000mg twice a dayNot-Taking/PRN Simvastatin 40 MG Tablet Orally Not-Taking/PRN Metoprolol Succinate ER 25 MG Tablet Extended Release 24 Hour 1 tablet Orally Once a dayNot-Taking/PRN Colchicine 0.6 MG Tablet Orally Not-Taking/PRN Aspirin Not-Taking/PRN Extra-Depth Diabetic Shoes with 3 Pair Custom heat-molded multi-density innersoles . . for 1 year . Dx:niddm with neuropathy, foot deformity and preulcerative skin lesionsNot-Taking/PRN Extra-Depth Diabetic Shoes with 3 Pair Custom heat-molded multi-density innersoles . . for 1 year . Dx:niddm with neuropathy, foot deformity and preulcerative skin lesionsNot-Taking/PRN Colcrys 0.6 MG Tablet 1 tablet Orally Once a dayNot-Taking/PRN glyburide 5mg Not-Taking/PRN Indomethacin 50 MG Capsule 1 capsule with food Orally Three times a dayMedication List reviewed and reconciled with the patient * Allergies:?PredniSONEyes[All ergies Verified] Objective: * Vitals:?Ht: 5 ft 10 in, Wt: 215, BMI: 30.85, Shoe size: 13, BS: 126, Wt-k.52 kg. * ???Past Orders: ???Lab:HEMOGLOBIN A1C (GLYCO HEMOGLOBIN) (Order Date - 09/15/2023) (Collection Date - 09/15/2023) ? Value Reference Range ?HEMOGLOBIN A1C % (HH) 6.7 * Examination: ???General Examination: ?GENERAL APPEARANCE:?pleasant, alert, well nourished, well developed, well hydrated, with good attention to hygene/body habitus, and in no acute distress.?ORIENTED:?person,place, and time.?Neurological: ?SENSORY:?Neurological exam demonstrates, reduced light touch sensation, reduced vibration sensation, at Forefoot, at Midfoot, B/L, 5.07 monofilament test performed at plantar aspects of 5 varied sites per foot shows sensation, reduced , B/L.?BABINSKI REFLEX:?absent.?Neuroma Pain: ?PALPATION:?No interspace pain noted on palpation.?Vascular: ?DP PULSES:? 1/4, B/L.?PT PULSES:? 0/4, B/L.?CAPILLARY FILL TIME:?3 secs. per digit, B/L.?SKIN TEMPERTURE GRADIENT OF THE LOWER EXTERMITIES:?warm to cool, proximal to distal, B/L.?HAIR GROWTH/TEXTURE/ELASTICITY/TURGOR:?normal, B/L.?PIGMENTATION:?normal, B/L.?EDEMA:? 2/4, Right, 1/4, Left, Feet, Ankle(s), Leg(s).?Dermatologic: ?SKIN FINDINGS:?Skin exam reveals Keratotic lesion(s) located at, Plantar, TA, T1, T2, T3, T5, T6, T7 , SUB MTH (s), 5, B/L , Heel(s), B/L.?ULCER:? LOCATION--plantar t7, healed.?Orthopedic: ?MUSCLE STRENGTH:?5/5 all groups in a symmetrical fashion , B/L .?GAIT ABNORMALITY:?pronated, abducted, B/L .?DIGITAL DEFORMITIES:? Digital contracture, PIPJ, 1-5 B/L, incompl- reducable to push-up test, no over, nor underlapping; pop t5 ipj with edema of joint and contracture.?FOOTWEAR:? fair condition .?Nails: ?NAILS are:?Elongated, overgrown, dystrophic, lytic, greater than 3mm thick, discolored and friable with crumbly malodorous subungual debris, 1-4 Left foot, T7, T5, T9, remaining nails are elongated, overgrown, and non-dystrophic .?Ophthalmology Referral: ?DIABETES EYE EXAM? Assessment: * Assessment: 1.?Tinea unguium - B35.1 (Pr imary)?2.?Pain in right toe(s) - M79.674?3.?Pain in left toe(s) - M79.675?4.?Type 2 diabetes mellitus with diabetic polyneuropathy - E11.42?5.?Other hammer toe(s) (acquired), left foot - M20.42?6.?Other hammer toe(s) (acquired), right foot - M20.41?7.?Unspecified atherosclerosis of [place] arteries of extremities, bilateral legs - I70.203?8.?Localized edema - R60.0? Plan: * Treatment: * Procedures:?Debride Nail 6-10:?Nail debridement?Nail debridement performed extensively to reduce/remove overall nail length and girth, subungual debris, and necrotic tissue, by manual and electrical means with use of a nail nipper and/or dremel, to more viable healthy nail plate or bed tissue 6-10. Silver nitrate used for any petechial bleeding as necessary. Patient chooses, no pharmaceutical tx (07388).?Keratoma Treatment:?Parring or Cutting of Benign Hyperkeratotic Lesion(s)?58089 ( >4 Lesions) - The Benign hyperkeratotic lesions, as described above were pared, and/or cut utilizing a sterile #15 blade, tissue nippers, and/or dremel.? * Procedure Codes:?48000 DEBRI DE NAIL, 6 OR MORE, Modifiers: XS 52163 TRIM SKIN LESIONS, OVER 4, Modifiers: XS * Follow Up:?3 Months * Images: * Sign off status: Completed true * Provider:?Helio Guillory DPM Date:? 024 Generated for Alexandria brock/Skyler/Bronwyn on:?06/08/2024 02:32 PM EST History and Physical Notes * HPI (History of Present Illness) Category Sub-Category Detail Notes Category Not es Toe pain Nature: sharp, throbbing, tenderness , swelling Location: 3rd toe, Right foot Onset/Cause: gradual, unknown Aggravated by: any pressure Painful Nails Pt States Last PCP Visit: Date:: 05/17/2023 Foot Pain Nature: sharp, stabbing, swelling Location: RIGHT, Great toe ramos nt Duration: 1 month Course: worse Severity/Quality: moderate, severe Examination Category Sub-Category Detail Notes Category Not es Neuroma Pain PALPATION: No interspace pain noted on palpation Neurological SENSORY: Neurological exa m demonstrates, reduced light touch sensation, reduced vibration sensation, at Forefoot, at Midfoot, B/L, 5.07 monofilament test performed at plantar aspects of 5 varied sites per foot shows sensation, reduced , B/L BABINSKI REFLEX: absent Dermatologic SKIN FINDINGS: Skin exam reveal s Keratotic lesion(s) located at, Plantar, TA, T1, T2, T3, T5, T6, T7 , SUB MTH (s), 5, B/L , Heel(s), B/L ULCER: LOCATION--plantar t7 , healed Orthopedic GAIT ABNORMALITY: pronated, abducted, B/L FOOTWEAR: fair condition DIGITAL DEFORMITIES: Digital contracture , PIPJ, 1-5 B/L, incompl-reducable to push-up test, no over, nor underlapping; pop t5 ipj with edema of joint and contracture MUSCLE STRENGTH: 5/5 all groups in a symmetrical fashion , B/L General Examination GENERAL APPEARANCE: pleasant , alert, well nourished, well developed, well hydrated, with good attention to hygene/body habitus, and in no acute distress ORIENTED: person,place, and ti me Ophthalmology Referral DIABETES EYE EXAM Diabetic Retinopa thy Screening:: No Findings of Diabetic Eye Exam:: no retin opathy Vascular DP PULSES (B): 1/4, B/L PT PULSES (B): 0/4, B/L CAPILLARY FILL TIME: 3 secs. per digit, B/L TEMPERTURE GRADIENT (C): warm to cool, p roximal to distal, B/L TROPHIC CONDITION-TEXTURE/ELASTICITY/TURGOR/HAIR GROWTH (B): normal, B/L EDEMA (C): 2/4, Right, 1/4, Lef t, Feet, Ankle(s), Leg(s) PIGMENTATION: normal, B/L Nails NAILS are: Elongated, overg rown, dystrophic, lytic, greater than 3mm thick, discolored and friable with crumbly malodorous subungual debris, 1-4 Left foot, T7, T5, T9, remaining nails are elongated, overgrown, and non-dystrophic
--- OUTSIDE RECORDS SUMMARY | 2024-06-08 14:32 | XMS_ITS ---
Author Organization Anselmo Azevedo DO FAC[facility] Address [address] [place] [id number] Care Team Providers Care Barn Hand Name Role Phone Anselmo Azevedo Primary Care Provider REASON FOR VISIT 3 month f/u Encounters Encounter Location Date Provider Diagnosis Anselmo Azevedo DO, FACP [address] [place], [place] [id number] 12/21/2023 Anselmo Azevedo PLAN OF TREATMENT No Information
--- OUTSIDE RECORDS SUMMARY | 2024-06-08 14:33 | XMS_ITS ---
Author Organization [facility] Address [address] [place] [address] Care Team Providers Care Pharmacy Resident Name Role Phone Roberto Carlos (RETIRED) Anselmo BANDA Primary Care Provid er Unavailable Miguel Saha Jr Unavailable ALLERGIES Allergen (clinical drug ingredient) Drug/Non Drug Allergy documented on EMR Reaction Allergy Type Onset Date Status PredniSONE upset stomach Drug Allergy Ac tive REASON FOR VISIT Patient presents today for abd bloating MEDICATIONS Medication SIG (Take, Route, Frequency, Duration) Notes Start Date End Date Status FeroSul 325 (65 Fe) MG Oral for 30 Active Gabapentin 300 MG Oral for 90 Active Prilosec 20 MG 2 capsule Orally twi ce a day for 10 day(s) Active Metamucil - as directed Orally Active Multivitamin Adult - as directed Orally Active amLODIPine Besylate 5 MG 1 tablet Orally Once a day for 30 day(s) Active Januvia 100 MG Orally Activ e Atorvastatin Calcium 40 MG 1 tablet Oral ly Once a day for 30 day(s) Active Xarelto 20 MG 1 tablet with food O rally Once a day for 30 day(s) Active SOCIAL HISTORY Sex Assigned At : Social History Observation Description Sex Assigned At Unknown Alcohol Screen Question Answer Notes Did you have a drink contain ing alcohol in the past year? Yes How often did you have a dri nk containing alcohol in the past year? Never (0 point) How many drinks did you have on a typical day when you were drinking in the past year? 1 or 2 drinks (0 point) How often did you have 6 or more drinks on one occasion in the past year? Never (0 point) Points 0 Interpretation Negative VITAL SIGNS BMI 31.12 kg/m2 08/11/2023 Blood pressure systolic 00 mm Hg 08/11/19 24 Blood pressure diastolic 00 mm Hg 024 Height 70.5 in 08/11/2023 Weight 220 lbs 08/11/2023 Encounters Encounter Location Date Provider Diagnosis [facility] [address] [place] [address] 08/11/2023 Miguel Saha Jr Gastroesophageal reflux disease, unspecified whether esophagitis present K21.9 ; Gas bloat syndrome K92.89 and Diarrhea, unspecified type R19.7 ASSESSMENTS Encounter Date Diagnosis Assessment Notes Treatment Notes Treatment Clinical Notes 08/11/2023 Gastroesophageal ref lux disease, unspecified whether esophagitis present (ICD-10 - K21.9) Gas - flatulence material was printed 08/11/2023 Gas bloat syndrome (ICD-10 - K92.89) 08/11/2023 Diarrhea, unspecifie d type (ICD-10 - R19.7) PLAN OF TREATMENT Treatment Notes Assessment Notes Gastroesophageal reflux dise ase, unspecified whether esophagitis present Gas - flatulence material was printed Next Appt Details Follow Up: 1 Year, Reason: Provider Name:Miguel soto Jr, 08/09/2024 01:15:00 PM, [address] [place] [address], [address], [place], [address],
--- OUTSIDE RECORDS SUMMARY | 2024-06-08 14:33 | XMS_ITS | Patient Health Record ---
Author Organization [facility] Address [address] [place] [address] Care Team Providers Care Fulfillment Specialist Name Role Phone Roberto Carlos (RETIRED) Anselmo BANDA Primary Care Provid er Unavailable Miguel Saha Jr Unavailable ALLERGIES Allergen (clinical drug ingredient) Drug/Non Drug Allergy documented on EMR Reaction Allergy Type Onset Date Status PredniSONE upset stomach Drug Allergy Ac tive REASON FOR REFERRAL No Information MEDICATIONS Medication SIG (Take, Route, Frequency, Duration) Notes Start Date End Date Status FeroSul 325 (65 Fe) MG Oral for 30 Active Gabapentin 300 MG Oral for 90 Active Multivitamin Adult - as directed Orally Active amLODIPine Besylate 5 MG 1 tablet Orally Once a day for 30 day(s) Active Januvia 100 MG Orally Activ e Atorvastatin Calcium 40 MG 1 tablet Oral ly Once a day for 30 day(s) Active Xarelto 20 MG 1 tablet with food O rally Once a day for 30 day(s) Active Prilosec 20 MG 2 capsule Orally twi ce a day for 10 day(s) Active Metamucil - as directed Orally Active IMMUNIZATIONS Vaccine Route Administration Date Status Comme nts Flu vaccine no Preserv 3 and > Unknown 02/13/2014 Admin istered Influenza Unknown 03/02/2019 Administered Influenza Unknown 12/31/2020 Administered SOCIAL HISTORY Sex Assigned At : Social [...] Never (0 point) Points 0 Interpretation Negative PROBLEMS Problem Type ICD Code Onset Dates Problem Status W/U Status Risk SNOMED Code Notes Problem Colon cancer screening (Z12.11) Active confirmed 954059687 Problem Change in bowel habits (R19.4) Active confirmed 772021793 Problem Diarrhea, unspecified type (R19.7) Active confirmed 91965274 Problem Gas bloat syndrome (K92.89) Active confirmed 474948352 Problem Gastroesophageal reflux disease, unspecified whether esophagitis present (K21.9) Active confirmed 517662327 VITAL SIGNS Blood pressure diastolic 00 mm Hg 08/11/2023 Height 70.5 in 08/11/2023 Blood pressure systolic 00 mm Hg 08/11/2023 Weight 220 lbs 08/11/2023 BMI 31.12 kg/m2 08/11/2023 Encounters Encounter Location Date Provider Diagnosis [facility] [address] [place] [address] 08/11/2023 Miguel Saha Jr Gastroesophageal reflux disease, unspecified whether esophagitis present K21.9 ; Gas bloat syndrome K92.89 and Diarrhea, unspecified type R19.7 ASSESSMENTS Encounter Date Diagnosis Assessment Notes Treatment Notes Treatment Clinical Notes 08/11/2023 Gas bloat syndrome (ICD-10 - K92.89) 08/11/2023 Gastroesophageal ref lux disease, unspecified whether esophagitis present (ICD-10 - K21.9) Gas - flatulence material was printed 08/11/2023 Diarrhea, unspecifie d type (ICD-10 - R19.7) PLAN OF TREATMENT Pending Test Test Name Order Date CBC w/o DIFF 02/11/2022 OCCULT BLOOD STOOL X3 (OBS) 04/16/2022 STOOL WBC 02/11/2022 OVA & PARASITES (O&P) 02/11/2022 US ABD 04/08/2022 TSH REFLEX FREE T4 02/11/2022 CALPROTECTIN, STOOL 02/11/2022 GI PANEL 02/11/2022 Future Test Test Name Order Date COLONOSCOPY 08/14/2014 COLONOSCOPY 12/20/2019 Next Appt Details Provider Name:Miguel soto Jr, 08/09/2024 01:15:00 PM, [address], [address], [place], [address], Insurance Providers Payer Name Payer Address Payer Phone Subscriber Number Group Number Insured Name Patient Relationship to Insured Coverage Start Date Coverage End Date [place] [address] [place] [address] [id number] NATASHAMELY Self - patient is the insured [facility] [address] [place] [phone] [id number] MELY KAUR Self - patient is the insured MEDICAL (GENERAL) HISTORY Medical History History ICD Code Colonoscopy 01/04/20, tubular adenoma, further screening is not recommended based on age. type II diabetes elevated Cholesterol pericarditis Afib hypertension Aortic stenosis Surgical History Surgery Date(Month/Year) tonsillectomy cataract-lens implants toe nail removal due to infection
--- OUTSIDE RECORDS SUMMARY | 2024-06-08 14:33 | XMS_ITS ---
Author Organization [facility] Address [address] [place] [address] Care Team Providers Care Automobile Mechanic Helper Name Role Phone Anselmo Azevedo MD Primary Care Provider Unavail Kelsie Yepez Unavailable [phone] Allergies Allergen (clinical drug ingredient) Drug/Non Drug Allergy documented on EMR Reaction Allergy Type Onset Date Status PredniSONE Unknown Drug Allergy Active REASON FOR VISIT At Risk Footcare Medications Medication SIG (Take, Route, Frequency, Duration) Notes Start Date End Date Status Xarelto 20 MG Orally Active Multi Vitamin/Minerals Active Januvia Active Furosemide 20 MG Orally Act esha Atorvastatin Calcium 40 MG 1 tablet Orally Once a day for 30 day(s) Active Indomethacin 50 MG 1 capsule with food Orally Three times a day for 10 days 05/13/2014 Not-Taking glyburide 5mg Not-Ta nikko Colcrys 0.6 MG 1 tablet Orally Once a day for 30 day(s) 05/13/2014 Not-Taking amLODIPine Besylate Active Voltaren 1 % as directed Externally Active Extra-Depth Diabetic Shoes with 3 Pair Custom heat-molded multi-density innersoles . for 1 year . Dx:niddm with neuropathy, foot deformity and preulcerative skin lesions for . Not-Taking Extra-Depth Diabetic Shoes with 3 Pair Custom heat-molded multi-density innersoles . for 1 year . Dx:niddm with neuropathy, foot deformity and preulcerative skin lesions for . 02/06/2014 Not-Taking Aspirin Not-Taking Colchicine 0.6 MG Orally No t-Taking Metoprolol Succinate ER 25 MG 1 tablet Orally Once a day Not-Taking Amoxicillin-Pot Clavulanate 875 875-125 MG one tab Orally every 12 hrs for 10 day(s) 01/10/2023 Not-Taking Amoxicillin-Pot Clavulanate 875 875-125 MG one tab Orally every 12 hrs for 30 days 04/21/2023 Not-Taking Cipro 500 MG 1 tablet Orally ever y 12 hrs for 30 days 01/17/2023 Not-Taking Simvastatin 40 MG Orally No t-Taking Metformin & Diet Manage Prod 1,000mg twice a day Not-Taking Social History Tobacco Use: Social History [...] other tobacco user? No Section Notes: \ Problems Problem Type SNOMED Code ICD Code Onset Dates Problem Status W/U Status Risk Notes Problem Polyneuropathy due to diabetes mellitus type I (471518947) Type 1 diabetes mellitus with diabetic polyneuropathy (E10.42) Active confirmed Vital Signs Height 5 ft 10 in in 03/21/2024 Weight 215 lbs 03/21/2024 BMI 30.85 kg/m2 03/21/2024 Blood pressure systolic 120 mm Hg 03/21/20 24 Blood pressure diastolic 70 mm Hg 024 Procedures Procedure Date Ordered Date Performed Result Body Sit e 21405-UOLJTUR NAIL, 6 OR MORE 03/21/2024 N/A 91607-QBQP SKIN LESIONS, OVER 4 03/21/2024 N/A Encounters Encounter Location Date Provider Diagnosis [facility] [address] [place] [address] 03/21/2024 Kelsie Coughlin Type 2 diabetes mellitus with diabetic polyneuropathy E11.42 and Tinea unguium B35.1 Assessments Encounter Date Diagnosis (ICD Code) Assessment Notes Treatment Notes Treatment Clinical Notes Section Notes 03/21/2024 Type 2 diabetes mellitus with diabetic polyneuropathy (ICD-10 - E11.42) 03/21/2024 Tinea unguium (ICD-10 - B35.1) Plan Of Treatment Pending Test Test Name Order Date 63680-KSTJNUL NAIL, 6 OR MORE 03/21/2024 78624-VKON SKIN LESIONS, OVER 4 03/21/20 24 Next Appt Details Follow Up: 3 Months, Reason: Provider Name:Reed Burt , 06/22/2024 12:30:00 PM, [address] [facility], [place], [address], Procedure Notes * Category Sub-Category Detail Notes Debride Nail 6-10 Nail debridement Performance o f this nail treatment by a nonprofessional would put this patients foot and overall health at risk. Therefore, debridement to affected nail(s), as described in exam, was performed extensively to reduce/remove overall nail length, girth, thickness, subungual debris, and necrotic tissue, by manual and/or electrical means through the use of a nail nipper and/or dremel-type grinder mill operator, to a more viable healthy nail plate or bed tissue 6-10. Silver nitrate used for any petechial bleeding as necessary. Definitive antifungal treatment options have been reviewed and discussed with the patient. The patient chooses, no pharmaceutical tx - 90058 Keratoma Treatment Parring or Cutting o f Benign Hyperkeratotic Lesion(s) (-57) More than 4 Lesions - The Benign hyperkeratotic lesions, as described in exam, were pared, and/or cut utilizing a sterile 15 blade, tissue nippers, and/or dremel - 40689 Progress Notes * Thaddeus VELÁSQUEZ JrDOB:1944 (79 yo M)Acc No.[id number]:03/21/2024 Progress Note Patient:?Thaddeus VELÁSQUEZ Jr Provider:?Kelsie Coughlin DPM :1945???Age:79 Y???Sex:Male Tanner e:03/21/2024 Address:[address] [place] [address] Pcp:Anselmo Azevedo MD Subjective: * Chief Complaints: * ???At Risk Footcare * HPI: ???At Risk footcare:?Pt States Last PCP Visit:?Date?08/01/2023 * ROS:?General/Constitutional:?Nausea?denies.?Vomiting?denies.?Hunger Thirst?denies.?Loss appetite?denies.?Chills?denies.?Fatigue?denies.?Fever?denies.?Night Sweats?denies.?Unexplained weight loss?denies.?Unexplained [...] History:?cystoscopy cataract 2010 * Hospitalization/Major Diagno stic Procedure:?[facility] [place] was light headed, sweaty. 03/2016[facility] ER for chest pain. 11/08/2017[facility] nose bleed 2019 * Family History:?Mother: dece [...] status: . 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 ???\. * Medications:?TakingVoltaren 1 % Gel as directed Externally amLODIPine Besylate Atorvastatin Calcium 40 MG Tablet 1 tablet Orally Once a day Furosemide 20 MG Tablet Orally Januvia Multi Vitamin/Minerals Xarelto 20 MG Tablet Orally Taking Voltaren 1 % Gel as directed Externally Taking amLODIPine Besylate Taking Atorvastatin Calcium 40 MG Tablet 1 tablet Orally Once a day Taking Furosemide 20 MG Tablet Orally Taking Januvia Taking Multi Vitamin/Minerals Taking Xarelto 20 MG Tablet Orally Not-Taking/PRNCipro 500 MG Tablet 1 tablet Orally every 12 hrs Amoxicillin-Pot Clavulanate 875 875-125 MG Tablet one tab Orally every 12 hrs Amoxicillin-Pot Clavulanate 875 875-125 MG Tablet one tab Orally every 12 hrs Metformin & Diet Manage Prod 1,000mg twice a day Simvastatin 40 MG Tablet Orally Metoprolol Succinate ER 25 MG Tablet Extended Release 24 Hour 1 tablet Orally Once a day Colchicine 0.6 MG Tablet Orally Aspirin Extra-Depth Diabetic Shoes with 3 Pair Custom heat-molded multi-density innersoles . . for 1 year . Dx:niddm with neuropathy, foot deformity and preulcerative skin lesions Extra-Depth Diabetic Shoes with 3 Pair Custom heat-molded multi-density innersoles . . for 1 year . Dx:niddm with neuropathy, foot deformity and preulcerative skin lesions Colcrys 0.6 MG Tablet 1 tablet Orally Once a day glyburide 5mg Indomethacin 50 MG Capsule 1 capsule with food Orally Three times a day Medication List reviewed and reconciled with the patientNot-Taking/PRN Cipro 500 MG Tablet 1 tablet Orally every 12 hrs Not-Taking/PRN Amoxicillin-Pot Clavulanate 875 875-125 MG Tablet one tab Orally every 12 hrs Not-Taking/PRN Amoxicillin-Pot Clavulanate 875 875-125 MG Tablet one tab Orally every 12 hrs Not-Taking/PRN Metformin & Diet Manage Prod 1,000mg twice a day Not-Taking/PRN Simvastatin 40 MG Tablet Orally Not-Taking/PRN Metoprolol Succinate ER 25 MG Tablet Extended Release 24 Hour 1 tablet Orally Once a day Not-Taking/PRN Colchicine 0.6 MG Tablet Orally Not-Taking/PRN Aspirin Not-Taking/PRN Extra-Depth Diabetic Shoes with 3 Pair Custom heat-molded multi-density innersoles . . for 1 year . Dx:niddm with neuropathy, foot deformity and preulcerative skin lesions Not-Taking/PRN Extra-Depth Diabetic Shoes with 3 Pair Custom heat-molded multi-density innersoles . . for 1 year . Dx:niddm with neuropathy, foot deformity and preulcerative skin lesions Not-Taking/PRN Colcrys 0.6 MG Tablet 1 tablet Orally Once a day Not-Taking/PRN glyburide 5mg Not- Taking/PRN Indomethacin 50 MG Capsule 1 capsule with food Orally Three times a day Medication List reviewed and reconciled with the patient * Allergies:?PredniSONEyes[All ergies Verified] Objective: * Vitals:?Ht: 5 ft 10 in, Wt:2 15, BMI: 30.85, Shoe size:13, BP:120/70mm Hg, BS:108, Wt-k.52 kg. * ???Past Orders: ???Lab:HEMOGLOBIN A1C (GLYCO HEMOGLOBIN) (Order Date - 09/15/2023) (Collection Date & Time - 09/15/2023 01:31 PM) ? Value Reference Range ?HEMOGLOBIN A1C % (HH) 6.7 * Examination: ???General Examination: ?GENERAL APPEARANCE:?Reveals a pleasant, alert, well nourished, well- developed, well hydrated individual, who demonstrates proper attention to hygiene/body habitus, and is in no acute distress, Pt serves as own historian for office visit today.?ORIENTED:?person, place, and time.?Neurological: ?SENSORY:? Neurological exam demonstrates, reduced light touch sensation, reduced sharp/dull pin prick discrimination , B/L, 5.07 monofilament test performed at plantar aspects of 5 varied sites per foot shows sensation, reduced , B/L.?Nails: ?NAILS are:?Elongated, overgrown, dystrophic, lytic, greater than 3mm thick, discolored and friable with crumbly malodorous subungual debris,?, with dull to no pain on palpation due to neuropathy, 1-5 B/L.?Dermatologic: ?SKIN FINDINGS:?Skin exam reveals Keratotic lesion(s) located at sub metatarsal heads 1 and 5 B/L, heels, B/L.?Vascular: ?DP PULSES(B):?1/4, B/L.?PT PULSES(B):? 0/4, B/L.?CAPILLARY FILL TIME:?3 secs. per digit, B/L.?TROPHIC CONDITION-TEXTURE/ELASTICITY/TURGOR/HAIR GROWTH(B):?normal, B/L.?TEMPERTURE GRADIENT(C):?warm to cool, proximal to distal, B/L.?PIGMENTATION:?normal, B/L.?EDEMA(C):?2/4, Right, 1/4, Left, Feet, Ankle(s), Leg(s).?Orthopedic: ?MUSCLE STRENGTH:?5/5 all groups in a symmetrical fashion, B/L.?Ophthalmology Referral: ?DIABETES EYE EXAM? Assessment: * Assessment: 1.?Type 2 diabetes mellitus with diabetic polyneuropathy - E11.42 (Primary)???2.?Tinea unguium - B35.1??? Plan: * Treatment: * Procedures:?Debride Nail 6-10:?Nail debridement?Performance of this nail treatment by a nonprofessional would put this patients foot and overall health at risk. Therefore, debridement to affected nail(s), as described in exam, was performed extensively to reduce/remove overall nail length, girth, thickness, subungual debris, and necrotic tissue, by manual and/or electrical means through the use of a nail nipper and/or dremel-type grinder mill operator, to a more viable healthy nail plate or bed tissue 6-10. Silver nitrate used for any petechial bleeding as necessary. Definitive antifungal treatment options have been reviewed and discussed with the patient. The patient chooses, no pharmaceutical tx - 09964.?Keratoma Treatment:?Parring or Cutting of Benign Hyperkeratotic Lesion(s)?(-57) More than 4 Lesions - The Benign hyperkeratotic lesions, as described in exam, were pared, and/or cut utilizing a sterile 15 blade, tissue nippers, and/or dremel - 72552.? * Procedure Codes:?73088 DEBRI DE NAIL, 6 OR MORE, Modifiers: XS 44381 TRIM SKIN LESIONS, OVER 4, Modifiers: XS * Follow Up:?3 Months * Images: * Sign off status: Completed true * Provider:?Kelsie Coughlin DPM Date:?05/21/2023 Generated for Alexandria brock/Skyler/Bronwyn on:?06/08/2024 02:32 PM EST History and Physical Notes * HPI (History of Present Illness) Category Sub-Category Detail Notes Category Not es At Risk footcare Pt States Last PCP Visit: Date: Examination Category Sub-Category Detail Notes Category Not es Neurological SENSORY: Neurological exa m demonstrates, reduced light touch sensation, reduced sharp/dull pin prick discrimination , B/L, 5.07 monofilament test performed at plantar aspects of 5 varied sites per foot shows sensation, reduced , B/L Dermatologic SKIN FINDINGS: Skin exam reveal s Keratotic lesion(s) located at sub metatarsal heads 1 and 5 B/L, heels, B/L Orthopedic MUSCLE STRENGTH: 5/5 all groups in a symmetrical fashion, B/L General Examination GENERAL APPEARANCE: Reveals a pleasant, alert, well nourished, well-developed, well hydrated individual, who demonstrates proper attention to hygiene/body habitus, and is in no acute distress, Pt serves as own historian for office visit today ORIENTED: person, place, and t carlitos Ophthalmology Referral DIABETES EYE EXAM Procedure Perform ed:: No Findings of Diabetic Eye Exam:: no [...] and friable with crumbly malodorous subungual debris, , with dull to no pain on palpation due to neuropathy, 1-5 B/L
--- OUTSIDE RECORDS SUMMARY | 2024-06-08 14:33 | XMS_ITS ---
Author Organization [facility] Address [address] [address] Care Team Providers Care Customer Account Administrator Name Role Phone Anselmo Azevedo MD Primary Care Provider Unavail able Kelsie Coughlin Unavailable [phone] Helio Guillory Unavailable [phone] Allergies Allergen (clinical drug ingredient) Drug/Non Drug Allergy documented on EMR Reaction Allergy Type Onset Date Status PredniSONE Unknown Drug Allergy Active REASON FOR VISIT Painful nail(s) aggrevated by shoes and causing difficulty standing/walking., PCP - 12/2022 Medications Medication SIG (Take, Route, Frequency, Duration) Notes Start Date End Date Status Colchicine 0.6 MG Orally No t-Taking Simvastatin 40 MG Orally No t-Taking Metoprolol Succinate ER 25 MG 1 tablet Orally Once a day Not-Taking Metformin & Diet Manage Prod 1,000mg twice a day Not-Taking Aspirin Not-Taking Amoxicillin-Pot Clavulanate 875 875-125 MG one tab Orally every 12 hrs for 10 day(s) 01/10/2023 Not-Taking Cipro 500 MG 1 tablet Orally ever y 12 hrs for 30 days 01/17/2023 Not-Taking Amoxicillin-Pot Clavulanate 875 875-125 MG one tab Orally every 12 hrs for 30 days 04/21/2023 Not-Taking Multi Vitamin/Minerals Active Xarelto 20 MG Orally Active Atorvastatin Calcium 40 MG 1 tablet Orally Once a day for 30 day(s) Active Furosemide 20 MG Orally Act esha amLODIPine Besylate Active Voltaren 1 % as directed Externally Active Januvia Active glyburide 5mg Not-Ta nikko Indomethacin 50 MG 1 capsule with food Orally Three times a day for 10 days 05/13/2014 Not-Taking Extra-Depth Diabetic Shoes with 3 Pair Custom heat-molded multi-density innersoles . for 1 year . Dx:niddm with neuropathy, foot deformity and preulcerative skin lesions for . Not-Taking Colcrys 0.6 MG 1 tablet Orally Once a day for 30 day(s) 05/13/2014 Not-Taking Extra-Depth Diabetic Shoes with 3 Pair Custom heat-molded multi-density innersoles . for 1 year . Dx:niddm with neuropathy, foot deformity and preulcerative skin lesions for . 02/06/2014 Not-Taking Social History Tobacco Use: Social History [...] Signs Height 5 ft 10 in in 12/19/2023 Weight 215 lbs 12/19/2023 BMI 30.85 kg/m2 12/19/2023 Blood pressure systolic 120 mm Hg 12/19/19 24 Blood pressure diastolic 70 mm Hg 024 Encounters Encounter Location Date Provider Diagnosis [facility] [address] [place] [address] 12/19/2023 Helio Guillory Tinea unguium B35.1 ; Pain in right toe(s) M79.674 ; Pain in left toe(s) M79.675 ; Type 2 diabetes mellitus with diabetic polyneuropathy E11.42 ; Other hammer toe(s) (acquired), left foot M20.42 ; Other hammer toe(s) (acquired), right foot M20.41 ; Unspecified atherosclerosis of [place] arteries of extremities, bilateral legs I70.203 and Localized edema R60.0 Assessments Encounter Date Diagnosis (ICD Code) Assessment Notes Treatment Notes Treatment Clinical Notes Section Notes 12/19/2023 Tinea unguium (ICD-10 - B35.1) 12/19/2023 Pain in right toe(s) (ICD-10 - M79.674) 12/19/2023 Pain in left toe(s) (ICD-10 - M79.675) 12/19/2023 Type 2 diabetes mellitus with diabetic polyneuropathy (ICD-10 - E11.42) 12/19/2023 Other hammer toe(s) (acquired), left foot (ICD-10 - M20.42) 12/19/2023 Other hammer toe(s) (acquired), right foot (ICD-10 - M20.41) 12/19/2023 Unspecified atherosclerosis of [place] arteries of extremities, bilateral legs (ICD-10 - I70.203) 12/19/2023 Localized edema (ICD-10 - R60.0) Plan Of Treatment Medication Medication Name Sig Start Date Stop Date Notes Voltaren 1 % as directed Externally Next Appt Details Follow Up: 3 Months, Reason: Provider Name:Reed Burt , 06/22/2024 12:30:00 PM, [address] [place] [address], [id number], Procedure Notes * Category Sub-Category Detail Notes [...] as necessary. Patient chooses, no pharmaceutical tx (23999) Keratoma Treatment Parring or Cutting o f Benign Hyperkeratotic Lesion(s) 53818 ( >4 Lesions) - The Benign hyperkeratotic lesions, as described above were pared, and/or cut utilizing a sterile #15 blade, tissue nippers, and/or dremel Progress Notes * Thaddeus VELÁSQUEZ JrDOB:1944 (78 yo M)Acc No.[id number]:12/19/2023 Progress Note Patient:?Thaddeus Velásquez Provider:?Helio Guillory DPM :1945???Age:78 Y???Sex:Male Tanner e:12/19/2023 Address:[address] [facility] [place], [id number] Pcp:Anselmo Azevedo MD Subjective: * Chief Complaints: * ???Painful nail(s) aggrevate d by shoes and causing difficulty standing/walking.PCP - 12/2022 * HPI: ???Toe pain:?Nature:?sharp, throbbing, tenderness, swelling.?Location:?3rd toe, Right foot.?Onset/Cause:?gradual, unknown.?Aggravated by:?any pressure.?Painful Nails:?Pt States Last PCP Visit:?Date:?08/01/2023 ???Foot Pain:?Nature:?sharp, stabbing, swelling.?Location:?RIGHT, Great toe joint.?Duration:?1 [place] [facility] [place]. [place] [place] [...] Vitals:?Ht: 5 ft 10 in, Wt:2 15, BMI:30.85, Shoe size:13, BP:120/70 mm Hg, BS:105. * ???Past Orders: ???Lab:HEMOGLOBIN A1C (GLYCO HEMOGLOBIN) [...] (acquired), right foot - M20.41?7.?Unspecified atherosclerosis of [place] arteries of extremities, bilateral legs - I70.203?8.?Localized [...] as necessary. Patient chooses, no pharmaceutical tx (65711).?Keratoma Treatment:?Parring or Cutting of Benign Hyperkeratotic Lesion(s)?40515 ( >4 Lesions) - The Benign hyperkeratotic lesions, as described above were pared, and/or cut utilizing a sterile #15 blade, tissue nippers, and/or dremel.? * Procedure Codes:?15986 DEBRI DE NAIL, 6 OR MORE, Modifiers: XS 89759 TRIM SKIN LESIONS, OVER 4, Modifiers: XS * Follow Up:?3 Months * Images: * Sign off status: Completed true * Provider:?Helio Guillory DPM Date:? 024 Generated for Alexandria brock/Skyler/eTyamiletitting on:?06/08/2024 02:32 PM EST History and Physical Notes * HPI (History of Present Illness) Category Sub-Category Detail Notes Category Not es Toe pain Nature: sharp, throbbing, tenderness , swelling Location: 3rd toe, Right foot Onset/Cause: gradual, unknown Aggravated by: any pressure Painful Nails Pt States Last PCP Visit: Date:: 08/01/2023 Foot Pain Nature: sharp, stabbing, swelling Location: [...]
== END 2024-06-08 14:15 | disposition home or self-care (01) ==
LOC: HO.HMGCX 14:14
PROVIDERS: PCP Internal Medicine; Visit Provider Internal Medicine
DX: S43.402A Unspecified sprain of left shoulder joint, initial encounter (principal)
CPT/HCPCS: 73030

== ENCOUNTER → 2024-06-08 14:18 | Outpatient (BNV) | payer MEDICARE, OTHER, SELFPAY | PROVIDERS: PCP Internal Medicine; Visit Provider Radiology Diagnostic Radiology | DX: S43.402A Unspecified sprain of left shoulder joint, initial encounter (principal); M19.012 Primary osteoarthritis, left shoulder | CPT/HCPCS: 73030 ==

== ENCOUNTER 2024-06-20 14:30 | Outpatient (REF) | payer MEDICARE, OTHER, SELFPAY ==
--- NOTE | ~2024-06-20 | XR_ITS ---
EXAMINATION: XR CHEST CLINICAL INFORMATION: R05.9 - Cough, unspecified COMPARISON: 05/06/2020, 09/04/2019. TECHNIQUE: 2 views of the chest were obtained. FINDINGS: The cardiac, hilar, and mediastinal contours are normal. Lungs demonstrate increased patchy opacity is left lateral lower lung and costophrenic angle. Suspect subtle pneumonia. Mild stable diffuse prominence of the background interstitial markings. Mild stable linear scarring right midlung. Coarsened markings retrocardiac region, unchanged. No effusions or pneumothorax. There is no focal osseous or soft tissue abnormality. XR/XR chest 2V IMPRESSION: 1. Increased patchy opacities in the left costophrenic angle, suspect subtle pneumonia. 2. Additional findings likely representing chronic changes, similar to the prior exam of 05/06/2020. Electronically signed by: Delmer Gray MD 06/21/2024 01:19 PM [facility]
--- OUTSIDE RECORDS SUMMARY | 2024-06-20 14:34 | XMS_ITS ---
Author Organization Anselmo Azevedo DO [facility] Address [address] [facility] [place] [id number] Care Team Providers Care Mason Helper Name Role Phone Anselmo Azevedo Primary Care Provider REASON FOR VISIT 3 month f/u Encounters Encounter Location Date Provider Diagnosis Anselmo Azevedo DO, FACP [address] [place], [place] [id number] 12/21/2023 Anselmo Azevedo PLAN OF TREATMENT No Information
--- OUTSIDE RECORDS SUMMARY | 2024-06-20 14:34 | XMS_ITS ---
Author Organization Anselmo Azevedo DO, FACP Address [address] [facility] [place] [id number] Care Team Providers Care Translator And Interpreter Name Role Phone Anselmo Azevedo Primary Care [...] Location Date Provider Diagnosis Anselmo Azevedo DO, [address] [phone] 09/21/2023 Anselmo Azevedo DM II (diabetes mellitus, [...] General Examination GENERAL APPEARANCE: in no ac beata distress, well developed, well nourished HEAD: normocephalic, [...]
--- OUTSIDE RECORDS SUMMARY | 2024-06-20 14:35 | XMS_ITS ---
Author Organization [facility] Address [address] [facility] [address] Care Team Providers Care Mechanical Inspector Name Role Phone Anselmo Azevedo MD Primary Care Provider Unavail elisabeth BucioakerKelsie Unavailable [phone] Allergies Allergen (clinical drug ingredient) Drug/Non Drug [...] Polyneuropathy due to diabetes mellitus type I (107801747) Type 1 diabetes mellitus with diabetic polyneuropathy (E10.42) Active confirmed Vital Signs Height 5 ft 10 in in 03/21/2024 Weight 215 lbs 03/21/2024 BMI 30.85 kg/m2 03/21/2024 Blood pressure systolic 120 mm Hg 03/21/20 24 Blood pressure diastolic 70 mm Hg 024 Procedures Procedure Date Ordered Date Performed Result Body Sit e 10583-YEEDLPR NAIL, 6 OR MORE 03/21/2024 N/A 65457-LKXZ SKIN LESIONS, OVER 4 03/21/2024 N/A Encounters Encounter Location Date Provider Diagnosis [facility] [address] [place] [address] 03/21/2024 Kelsie Coughlin Type 2 diabetes mellitus with diabetic polyneuropathy E11.42 and Tinea unguium B35.1 Assessments Encounter Date Diagnosis (ICD Code) Assessment Notes Treatment Notes Treatment Clinical Notes Section Notes 03/21/2024 Type 2 diabetes mellitus with diabetic polyneuropathy (ICD-10 - E11.42) 03/21/2024 Tinea unguium (ICD-10 - B35.1) Plan Of Treatment Pending Test Test Name Order Date 74389-EEPHPCU NAIL, 6 OR MORE 03/21/2024 42337-HPSJ SKIN LESIONS, OVER 4 03/21/20 24 Next Appt Details Follow Up: 3 Months, Reason: Provider Name:Reed Burt , 06/22/2024 12:30:00 PM, [address] [facility], [place], [address], Procedure Notes * Category Sub-Category Detail Notes [...] use of a nail nipper and/or dremel-type drier and grinder tender, to a more viable healthy nail plate or bed tissue 6-10. Silver nitrate used for any petechial bleeding as necessary. Definitive antifungal treatment options have been reviewed and discussed with the patient. The patient chooses, no pharmaceutical tx - 09477 Keratoma Treatment Parring or Cutting o f Benign Hyperkeratotic Lesion(s) (-57) More than 4 Lesions - The Benign hyperkeratotic lesions, as described in exam, were pared, and/or cut utilizing a sterile 15 blade, tissue nippers, and/or dremel - 05204 Progress Notes * Thaddeus VELÁSQUEZ JrDOB:1944 (79 yo M)Acc No.[id number]:03/21/2024 Progress Note Patient:?Thaddeus VELÁSQUEZ Jr Provider:?Kelsie Coughlin DPM :1945???Age:79 Y???Sex:Male Tanner e:03/21/2024 Address:[address] [place] [address] Pcp:Anselmo Azevedo MD Subjective: * Chief Complaints: [...] History:?cystoscopy cataract 2010 * Hospitalization/Major Diagno stic Procedure:?[facility] [place] pt was light headed, sweaty. 03/2016[facility] ER for chest pain. 11/08/2017[facility] nose bleed 2019 * Family History:?Mother: dece [...] use of a nail nipper and/or dremel-type drier and grinder tender, to a more viable healthy nail plate or bed tissue 6-10. Silver nitrate used for any petechial bleeding as necessary. Definitive antifungal treatment options have been reviewed and discussed with the patient. The patient chooses, no pharmaceutical tx - 89165.?Keratoma Treatment:?Parring or Cutting of Benign Hyperkeratotic Lesion(s)?(-57) More than 4 Lesions - The Benign hyperkeratotic lesions, as described in exam, were pared, and/or cut utilizing a sterile 15 blade, tissue nippers, and/or dremel - 53720.? * Procedure Codes:?34121 DEBRI DE NAIL, 6 OR MORE, Modifiers: XS 44928 TRIM SKIN LESIONS, OVER 4, Modifiers: XS * Follow Up:?3 Months * Images: * Sign off status: Completed true * Provider:?Kelsie Coughlin DPM Date:?05/21/2023 Generated for Alexandria brock/Skyler/Bronwyn on:?06/20/2024 02:35 PM EST History and Physical Notes * [...]
--- OUTSIDE RECORDS SUMMARY | 2024-06-20 14:35 | XMS_ITS ---
Author Organization [facility] Address [address] [facility] [place] [address] Care Team Providers Care Resolution Analyst Name Role Phone Anselmo Azevedo MD Primary Care Provider Unavail able Kelsie Coughlin Unavailable [phone] Helio Guillory Unavailable [phone] Allergies Allergen (clinical drug ingredient) Drug/Non Drug [...] user? No Section Notes: \ Vital Signs Blood pressure systolic 120 mm Hg 12/19/19 24 Blood pressure diastolic 70 mm Hg 024 Height 5 ft 10 in in 12/19/2023 Weight 215 lbs 12/19/2023 BMI 30.85 kg/m2 12/19/2023 Encounters Encounter Location Date Provider [facility] [address] [place] [address] 12/19/2023 Helio Guillory Tinea unguium B35.1 ; Pain in right toe(s) M79.674 ; Pain in left toe(s) M79.675 ; Type 2 diabetes mellitus with diabetic polyneuropathy E11.42 ; Other hammer toe(s) (acquired), left foot M20.42 ; Other hammer toe(s) (acquired), right foot M20.41 ; 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 Patient chooses, no pharmaceutical tx (87792) Keratoma Treatment Parring or Cutting o f Benign Hyperkeratotic Lesion(s) 62536 ( >4 Lesions) - The Benign hyperkeratotic lesions, as described above were pared, and/or cut utilizing a sterile #15 blade, tissue nippers, and/or dremel Progress Notes * Thaddeus VELÁSQUEZ JrDOB:1944 (79 yo M)Acc No.[id number]:12/19/2023 Progress Note Patient:?Thaddeus VELÁSQUEZ Provider:?Helio Guillory DPM :1945???Age:78 Y???Sex:Male Tanner e:12/19/2023 Address:[address] [facility] [place], [place] Pcp:Anselmo Azevedo MD Subjective: * Chief Complaints: [...] History:?cystoscopy cataract 2010 * Hospitalization/Major Diagno stic Procedure:?[facility] [place] was light headed, sweaty. 03/2016[facility] ER for chest pain. 11/08/2017[facility] nose bleed 2019 * Family History:?Mother: dece [...] 10 in, Wt:2 15, BMI:30.85, Shoe size:13, BP:120/70mm Hg, BS:105. * ???Past Orders: ???Lab:HEMOGLOBIN A1C (GLYCO HEMOGLOBIN) (Order Date - 09/15/2023) (Collection Date & Time - 09/15/2023 01:31 PM) ? Value Reference Range ?HEMOGLOBIN A1C % (HH) 6.7 * Examination: ???General Examination: ?GENERAL APPEARANCE:?pleasant, alert, well nourished, well developed, well hydrated, with good attention to hygene/body habitus, and in no acute distress.?ORIENTED:?person,place, and time.?FOOT EXAM:?Neurological: ?SENSORY:?Neurological exam demonstrates, reduced light touch sensation, reduced vibration sensation, at Forefoot, at Midfoot, B/L, 5.07 monofilament test performed at plantar aspects of 5 varied sites per foot shows sensation, reduced , B/L.?BABINSKI REFLEX:?absent.?Neuroma Pain: ?PALPATION:?No interspace pain noted on palpation.?Vascular: ?DP PULSES (B):? 1/4, B/L.?PT PULSES (B):? 0/4, B/L.?CAPILLARY FILL TIME:?3 secs. per digit, B/L.?TROPHIC CONDITION-TEXTURE/ELASTICITY/TURGOR/HAIR GROWTH (B):?normal, B/L.?TEMPERTURE GRADIENT (C):?warm to cool, proximal to distal, B/L.?PIGMENTATION:?normal, B/L.?EDEMA (C):? 2/4, Right, 1/4, Left, Feet, Ankle(s), Leg(s).?Dermatologic: ?SKIN FINDINGS:?Skin exam reveals Keratotic lesion(s) located at, Plantar, TA, T1, T2, T3, T5, T6, T7 , SUB MTH (s), 5, B/L , Heel(s), B/L.?ULCER:? LOCATION--plantar t7, healed.?Orthopedic: ?MUSCLE STRENGTH:?5/5 all groups in a symmetrical fashion , B/L.?GAIT ABNORMALITY:?pronated, abducted, B/L.?DIGITAL DEFORMITIES:? Digital contracture, PIPJ, 1-5 B/L, incompl- reducable to push-up test, no over, nor underlapping; pop t5 ipj with edema of joint and contracture.?FOOTWEAR:? fair condition.?Nails: ?NAILS are:?Elongated, overgrown, dystrophic, lytic, greater than 3mm thick, discolored and friable with crumbly malodorous subungual debris, 1-4 Left foot, T7, T5, T9, remaining nails are elongated, overgrown, and non-dystrophic.?Ophthalmology Referral: ?DIABETES EYE EXAM? 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 Plan: * Treatment: * Procedures:?Debride Nail 6-10:?Nail debridement?Nail debridement performed extensively to reduce/remove overall nail length and girth, subungual debris, and necrotic tissue, by manual and electrical means with use of a nail nipper and/or dremel, to more viable healthy nail plate or bed tissue 6-10. Silver nitrate used for any petechial bleeding as necessary. Patient chooses, no pharmaceutical tx (12098).?Keratoma Treatment:?Parring or Cutting of Benign Hyperkeratotic Lesion(s)?55790 ( >4 Lesions) - The Benign hyperkeratotic lesions, as described above were pared, and/or cut utilizing a sterile #15 blade, tissue nippers, and/or dremel.? * Procedure Codes:?79804 DEBRI DE NAIL, 6 OR MORE, Modifiers: XS 20542 TRIM SKIN LESIONS, OVER 4, Modifiers: XS * Follow Up:?3 Months * Images: * Sign off status: Completed true * Provider:?Helio Guillory DPM Date:? 024 Generated for Alexandria brock/Skyler/eTbrandiesmitting on:?06/20/2024 02:35 PM EST History and Physical [...] hygene/body habitus, and in no acute distress FOOT EXAM: Lower Extremity Neurological Exa m performed:: Yes Date: 12/19/2023 ORIENTED: person,place, and ti me Ophthalmology Referral [...]
--- OUTSIDE RECORDS SUMMARY | 2024-06-20 14:35 | XMS_ITS ---
Author Organization [facility] Address [address] [place] [address] Care Team Providers Care De Ionizer Operator Name Role Phone Roberto Carlos (RETIRED) Anselmo BANDA Primary Care Provid er Unavailable Miguel Saha Jr Unavailable [phone] ALLERGIES Allergen (clinical drug ingredient) Drug/Non Drug [...] 08/11/2023 Encounters Encounter Location Date Provider Diagnosis [facility] [address] [facility] [address] [place] [address] 08/11/2023 Miguel Saha Jr Gastroesophageal reflux disease, [...] Provider Name:Miguel soto Jr, 08/09/2024 01:15:00 PM, [address] [place] [address], [address], [place], [address],
--- OUTSIDE RECORDS SUMMARY | 2024-06-20 14:35 | XMS_ITS ---
Author Organization Anselmo Azevedo DO, FACP Address [address] [place], [place] [id number] Care Team Providers Care Manager Action Name Role Phone Anselmo Azevedo Primary Care Provider REASON FOR VISIT Refill and message MEDICATIONS Medication SIG (Take, Route, Fr equency, Duration) Notes Start Date End Date Status Januvia 100 MG 1 tablet Orally Once a day for 90 days Active Encounters Encounter Location Date Provider Diagnosis [facility] [address] [place], [place] [phone] 10/14/2023 Anselmo Azevedo PLAN OF TREATMENT Medication Medication Name Sig Start Date Stop Date Notes Januvia 100 MG 1 tablet Orally Once a day for 90 days
--- OUTSIDE RECORDS SUMMARY | 2024-06-20 14:35 | XMS_ITS | Patient Health Record ---
Author Organization [facility] Address [address] [place] [address] Care Team Providers Care Control Officer Name Role Phone Roberto Carlos (RETIRED) Anselmo [...] Problem Colon cancer screening (Z12.11) Active confirmed 989443672 Problem Change in bowel habits (R19.4) Active confirmed 705721922 Problem Diarrhea, unspecified type (R19.7) Active confirmed 19841263 Problem Gas bloat syndrome (K92.89) Active confirmed 446973451 Problem Gastroesophageal reflux disease, unspecified whether esophagitis present (K21.9) Active confirmed 764953761 VITAL SIGNS Blood pressure diastolic 00 mm Hg 08/11/2023 Height 70.5 in 08/11/2023 Blood pressure systolic 00 mm Hg 08/11/2023 Weight 220 lbs 08/11/2023 BMI 31.12 kg/m2 08/11/2023 Encounters Encounter Location Date Provider Diagnosis [facility] [address] [place] [address] 08/11/2023 Miguel Saha Jr Gastroesophageal reflux disease, [...] Name:Miguel soto Jr, 08/09/2024 01:15:00 PM, [address], [address], [place], [address], Insurance Providers Payer Name Payer Address Payer Phone Subscriber Number Group Number Insured Name Patient Relationship to Insured Coverage Start Date Coverage End Date MEDICARE OF [place] [address] [place] [address] [id number] NATASHAMELY Self - patient is the insured [facility] [address] [place] [address] [id number] MELY KAUR Self - patient is the insured MEDICAL (GENERAL) HISTORY Medical History History ICD Code Colonoscopy 01/04/20, tubular adenoma, further screening is not recommended based on age. type II diabetes elevated Cholesterol pericarditis Afib hypertension Aortic stenosis Surgical History Surgery Date(Month/Year) tonsillectomy cataract-lens implants toe nail removal due to infection
--- OUTSIDE RECORDS SUMMARY | 2024-06-20 14:35 | XMS_ITS ---
Author Organization [facility] Address [address] [place] [address] Care Team Providers Care Coffee Supervisor Name Role Phone Anselmo Azevedo MD Primary Care Provider Unavail able Kelsie Coughlin Unavailable [phone] Helio Guillory Unavailable [phone] Allergies Allergen (clinical drug ingredient) Drug/Non Drug [...] 09/15/2023 Encounters Encounter Location Date Provider Diagnosis [facility] [place] [address] [place] [address] 09/15/2023 Helio Guillory Tinea unguium B35.1 ; Pain in right toe(s) M79.674 ; Pain in left toe(s) M79.675 ; Type 2 diabetes mellitus with diabetic polyneuropathy E11.42 ; Other hammer toe(s) (acquired), left foot M20.42 ; Other hammer toe(s) (acquired), right foot M20.41 ; Unspecified atherosclerosis of minto arteries of extremities, bilateral legs I70.203 and [...] (ICD-10 - M20.41) 09/15/2023 Unspecified atherosclerosis of minto arteries of extremities, bilateral legs (ICD-10 - I70.203) 09/15/2023 Localized edema (ICD-10 - R60.0) Plan Of Treatment Medication Medication Name Sig Start Date Stop Date Notes Voltaren 1 % as directed Externally Next Appt Details Follow Up: 3 Months, Reason: Provider Name:Reed Burt , 06/22/2024 12:30:00 PM, [address] [place] [address], [phone], Procedure Notes * Category Sub-Category Detail [...] as necessary. Patient chooses, no pharmaceutical tx (29128) Keratoma Treatment Parring or Cutting o f Benign Hyperkeratotic Lesion(s) 64543 ( >4 Lesions) - The Benign hyperkeratotic lesions, as described above were pared, and/or cut utilizing a sterile #15 blade, tissue nippers, and/or dremel Progress Notes * Thaddeus VELÁSQUEZ JrDOB:1944 (78 yo M)Acc No.[id number]:09/15/2023 Progress Note Patient:?Thaddeus Velásquez Provider:?Helio Guillory DPM :1945???Age:78 Y???Sex:Male Tanner e:09/15/2023 Address:[address] [place] [address] [place] Pcp:Anselmo Azevedo MD Subjective: * Chief Complaints: [...] History:?cystoscopy cataract 2010 * Hospitalization/Major Diagno stic Procedure:?[facility] [place] pt was light headed, lilyy. 03/2016[facility] [place] ER for chest pain. 11/08/2017[facility] [place] nose bleed 2019 * Family History:?Mother: dece [...] (acquired), right foot - M20.41?7.?Unspecified atherosclerosis of minto arteries of extremities, bilateral legs - I70.203?8.?Localized [...] as necessary. Patient chooses, no pharmaceutical tx (76979).?Keratoma Treatment:?Parring or Cutting of Benign Hyperkeratotic Lesion(s)?84233 ( >4 Lesions) - The Benign hyperkeratotic lesions, as described above were pared, and/or cut utilizing a sterile #15 blade, tissue nippers, and/or dremel.? * Procedure Codes:?82343 DEBRI DE NAIL, 6 OR MORE, Modifiers: XS 48469 TRIM SKIN LESIONS, OVER 4, Modifiers: XS * Follow Up:?3 Months * Images: * Sign off status: Completed true * Provider:?Helio Guillory DPM Date:? 024 Generated for Alexandria brock/Skyler/Bronwyn on:?06/20/2024 02:34 PM EST History and Physical Notes * [...]
[2024-06-20 16:25] LABS: MANUAL DIFF FLAG NO
[2024-06-20 16:39] LABS: Basophils Absolute Auto 0.1 X10*3/uL (0.0-0.2); Basophils Percent Auto 0.8 % (0-2); Eosinophils Absolute Auto 0.3 X10*3/uL (0.0-0.4); Eosinophils Percent Auto 3.2 % (0-4); Hematocrit 31.2 % (42.0-52.0); Hemoglobin 10.2 g/dl (14.0-18.0); Imm Gran Abs Auto 0.03 X10*3/uL (0.00-0.03); Imm Gran Pct Auto 0.3 % (0.0-0.4); Lymphocytes Percent Auto 22.8 % (20-40); Mean Corpuscular HGB Conc 32.7 g/dl (31.0-36.0); Mean Corpuscular Hemoglobin 30.7 pg (27.0-33.0); Mean Platelet Volume 10.1 fL (9.4-12.4); Monocytes Absolute Auto 1.2 X10*3/uL (0.1-1.2); Monocytes Percent Auto 13.7 % (2-11); Neutrophils Absolute Auto 5.2 x10*3/uL (2.0-8.3); Neutrophils Percent Auto 59.2 % (45-73); Platelet Count 225 X10*3/uL (160-400); Red Blood Count 3.32 X10*6/uL (4.60-5.80); White Blood Count 8.7 X10*3/uL (4.8-10.8)
[2024-06-20 16:40] LABS: B Type Natriuretic Peptide 196 pg/mL (<100)
[2024-06-20 16:46] LABS: Alanine Aminotransferase 22 U/L (0-40); Alkaline Phosphatase 167 U/L (39-117); Anion Gap 12 (12-20); Aspartate Amino Transferase 32 U/L (5-37); Bilirubin Total 0.7 mg/dL (0.0-1.0); Blood Urea Nitrogen 19 mg/dL (9-16); Carbon Dioxide 22 mmol/L (22-29); Chloride 106 mmol/L (96-108); Estimated Glomerular Filt Rate > 60; Glucose Random 133 mg/dL (60-115); Potassium 4.2 mmol/L (3.3-5.1); Sodium 136 mmol/L (135-145); Total Protein 7.7 g/dL (6.5-8.0)
== END 2024-06-20 14:31 | disposition home or self-care (01) ==
LOC: HO.HMGCX 14:30
PROVIDERS: PCP Physician Assistant Medical; Visit Provider Physician Assistant Medical
DX: R60.0 Localized edema (principal); R05.9 Cough, unspecified; I48.0 Paroxysmal atrial fibrillation; Z00.00 Encounter for general adult medical examination without abnormal findings
CPT/HCPCS: 36415; 71046; 80053; 83880; 85025

== ENCOUNTER → 2024-06-20 14:37 | Outpatient (BNV) | payer MEDICARE, OTHER, SELFPAY | PROVIDERS: PCP Physician Assistant Medical; Visit Provider Radiology Diagnostic Radiology | DX: R05.9 Cough, unspecified (principal) | CPT/HCPCS: 71046 ==

== ENCOUNTER 2024-06-26 10:00 | Outpatient (AMB) | payer MEDICARE, OTHER, SELFPAY ==
--- NOTE | 2024-06-26 10:00 | A.OFFPC_ITS ---
Vital Signs 06/26/24 10:12 Height 5 ft 6.25 in Weight 226 lb BMI 36.2 BP 160/78 H Blood Pressure Location Lt brachial Pulse 80 Pulse Source Pulse Oximeter Temp 98.1 F Pulse Oximetry (%) 99 Intake Visit Reasons: follow up Intake Note: still has cough shortness of breath Allergies prednisone Allergy (Unknown, Verified 06/26/24 11:18) GI Medication List - Last Reconciled 06/26/24 by Katherin Slade PA-C albuterol sulfate 90 mcg/actuation 1 inh inhalation QID PRN amlodipine 5 mg PO DAILY amoxicillin-pot clavulanate 875-125 mg 1 tab PO BID 10 days atorvastatin 40 mg PO DAILY celecoxib (Celebrex) 100 mg PO BID gabapentin 300 mg PO BID [iron PO] omeprazole magnesium (Prilosec) 10 mg PO DAILY rivaroxaban (Xarelto) 20 mg PO DAILY sitagliptin phosphate 100 mg PO DAILY tramadol 50 mg PO Q8H PRN PFSH Medical History (Updated 06/26/24 @ 11:18 by Katherin Slade PA-C) Hypertriglyceridemia Tubular adenoma Dyspnea on exertion Obesity (BMI 30-39.9) Right shoulder injury Right shoulder pain Cough Raynaud disease Edema Aortic stenosis Hyperlipemia HTN (hypertension) Type 2 diabetes mellitus PAF (paroxysmal atrial fibrillation) Surgical History (Updated 06/26/24 @ 11:18 by Katherin Slade PA-C) History of colonoscopy (~01/04/20) History of cardiac cath History of cataract surgery Family History Father No problems noted. Mother No problems noted. Paternal Grandfather CVD (cardiovascular disease) Paternal Grandmother No problems noted. Maternal Grandfather CVD (cardiovascular disease) Maternal Grandmother No problems noted. 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 Will not make any changes at this time unless general store manager recommends changing blood pressure medication. BMI result Body Mass Index 36.2 BMI Assessment/Plan discussion: High BMI High, discussed plan: lifestyle, weight reduction, dietary, physical activity and alcohol moderation Tobacco/Smoking Status: Tobacco use Status Patient Tobacco Use Status Former Tobacco user 06/26/24 10:02 Tobacco use type Cigarette 06/26/24 10:02 Coding Level of Care Code Est Pt Level 4 (50968) Complex EM visit Add On G2211 Diagnoses HTN (hypertension) I10 Type 2 diabetes mellitus E11.9 PAF (paroxysmal atrial fibrillation) I48.0 Hyperlipemia E78.5 Aortic stenosis I35.0 Dyspnea on exertion R06.09 Obesity (BMI 30-39.9) E66.9 Hypertriglyceridemia E78.1 Assessment & Plan Assessment & Plan (1) HTN (hypertension): Code(s): I10 - Essential (primary) hypertension Category: Medical Plan: Patient currently on amlodipine 5 mg daily. Patient being followed by Dr. Costa at [facility] as scheduled for TAVR in the next 1-2 weeks. Blood pressure Goal 130/90. Today it is elevated although patient is currently on ant ibiotics for pneumonia which may be contributing to the elevated blood pressure. Will send a message to Dr. Costa office at [facility] to update him about the patient's blood pressure reading today and that he is on antibiotics for pneumonia. Condition is chronic and stable continue to monitor and keep current regimen at this time. (2) Type 2 diabetes mellitus: Code(s): E11.9 - Type 2 diabetes mellitus without complications Category: Medical Plan: Patient currently on Januvia 100 mg daily. Goal a1c <7. Patient to have fasting blood work prior to next visit to assess A1c. Condition is chronic and stable continue to monitor (3) PAF (paroxysmal atrial fibrillation): Code(s): I48.0 - Paroxysmal atrial fibrillation Category: Medical Plan: Patient currently on Xarelto 20 mg daily. Being followed by cardiology at [facility] Dr. Costa. scheduled for TAVR. Condition is chronic and stable continue to monitor (4) Hyperlipemia: Comment: ideal LDL goal less than 70 and patient with diabetes. Code(s): E78.5 - Hyperlipidemia, unspecified Category: Medical Plan: Patient currently on atorvastatin 40 mg daily. LDL goal <70. Patient to have fasting blood work prior to next visit. Condition is chronic and stable will continue to monitor. (5) Aortic stenosis: Code(s): I35.0 - Nonrheumatic aortic (valve) stenosis Category: Medical Plan: Patient has severe aortic stenosis confirmed by echocardiogram. Patient is scheduled for TAVR by Dr. Costa at [facility]. Condition is chronic and stable continue to monitor. (6) Dyspnea on exertion: Code(s): R06.09 - Other forms of dyspnea Category: Medical Plan: Related to aortic stenosis. Being followed by Cardiology. Scheduled for TAVR. Will continue to monitor. (7) Obesity (BMI 30-39.9): Code(s): E66.9 - Obesity, unspecified Category: Medical Plan: Condition is chronic and stable continue to monitor. (8) Hypertriglyceridemia: Code(s): E78.1 - Pure hyperglyceridemia Category: Medical Plan Plan - Continue monitoring pneumonia treatment with antibiotics; assess response over the intervening days. - Update cardiac team regarding the current pneumonia status before proceeding with TAVR evaluation. - Carefully consider patient's continuation of anticoagulation therapy during this pneumonia episode and upcoming procedures. - Encourage shoulder pain management post-TAVR, with potential consideration for physical therapy evaluation. - Community navigators to contact for potential support with home care services to alleviate caregiving burden. - Re-assess blood pressure stability and confirm management plan with general store manager, possible titration of Amlodipine. Orders: Orders Complete Blood Count Auto Diff Today Z00.00 - Encounter for general adult medical examination without abnormal findings [employer]. Panel Fast Today Z00.00 - Encounter for general adult medical examination without abnormal findings Magnesium Today Z00.00 - Encounter for general adult medical examination without abnormal findings Liver Panel Today Z00.00 - Encounter for general adult medical examination without abnormal findings PSA,Total (Free>4and<10) Today Z00.00 - Encounter for general adult medical examination without abnormal findings Microalbumin, Random (w Creat) Today E11.9 - Type 2 diabetes mellitus without complications Hemoglobin A1c Today Z00.00 - Encounter for general adult medical examination without abnormal findings Lipid Panel Today Z00.00 - Encounter for general adult medical examination without abnormal findings TSH reflex Free T4 Today Z00.00 - Encounter for general adult medical examination without abnormal findings Vitamin B1 Today Z00.00 - Encounter for general adult medical examination without abnormal findings Vitamin D 25-OH Total Today Z00.00 - Encounter for general adult medical examination without abnormal findings Vitamin B12 and Folate Today Z00.00 - Encounter for general adult medical examination without abnormal findings Patient Instructions: Patient Instructions - Complete the course of prescribed antibiotics and monitor symptoms. - Contact the cardiology team to inform them of current pneumonia status. - Consider reaching out to community services suggested for support with home responsibilities. - Observe blood pressure and report any significant changes, particularly if experiencing dizziness, headaches, or other related symptoms. - Schedule a follow-up in three months as discussed for continuous monitoring of cardiac status and overall health management. - Notify our office immediately if experiencing any new or escalating symptoms. Scribe Plan - Not visible on output: History of Present Illness The patient is a 79-year-old male presenting with a follow-up for his chronic medical conditions. He was recently diagnosed with pneumonia and is currently on Augmentin and azithromycin. The pneumonia was diagnosed following a persistent cough for months, initially suspected as a subtle finding on chest X-ray, exhibiting in creased opacity. The patient is being treated with Azithromycin (Z-Obey) followed by Augmentin, initiated on the of this month. Despite the treatment, the patient reports only some improvement in symptoms, with ongoing cough and shortness of breath noted. The patient has a complex cardiac history significant for severe aortic stenosis, evidenced by echocardiogram findings of a peak gradient of 60 mmHg, mean gradient of 36 mmHg, and valve area of 0.62 cm?. This condition is complicated by chronic diastolic congestive heart failure, hyperlipidemia, type 2 diabetes, paroxysmal atrial fibrillation managed on anticoagulation with Rivaroxaban, and obesity. The patient has not had a stroke, myocardial infarction, or significant bleeding history. Prior echocardiogram findings also showed a heavily calcified aortic and tricuspid valve with a trace of aortic vegetation. Right ventricular size appeared normal, and left ventricular function was preserved with an ejection fraction of 55-60%. Cardiac catheterization demonstrated mild disease in the left anterior descending artery and left circumflex artery without significant stenosis. Patient is being followed by Dr. Carreno at [facility] and is scheduled for Transcatheter Aortic Valve Replacement (TAVR) in the upcoming weeks. Patient also concerned due to he is currently taking care of his who has macular degeneration, has urinary bowel incontinence and is unable to take care of herself. He reports he has kids although they live in [place] and in [place]. He does not have any help here. He lives with his alone. He is unable to clean his own household due to he is taking care of his which is his top priority. 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 - Performs all caregiving duties for his , including cooking and cleaning. - Previously active but currently restricted due to medical conditions. - Describes a functional decline affecting his mobility and endurance. Review of Systems - Cardiovascular: Reports shortness of breath. - Musculoskeletal: Reports shoulder pain. Physical Exam Appearance: Alert. Oriented X3. No acute distress. Head: Normal external exam. Normocephalic. Atraumatic. Eyes: Pupils are equal, round, and reactive to light. Extraocular movements intact. Conjunctiva and sclera normal. Eyelids normal. Ears: External auditory canal normal. Tympanic membranes normal. Throat: Pharynx normal. Uvula midline. Moist mucous membranes. Neck: Normal inspection. Neck supple. Full range of motion. No adenopathy. Thyroid Normal. No meningeal signs. No neck mass noted. Cardiovascular: Normal heart rate and rhythm. Heart sound normal. No murmurs noted. Pulses normal throughout. Evidence of severe aortic stenosis by echocardiogram. Aortic valve and tricuspid valve heavily calcified. Trace of aortic vegetation noted. Respiratory: No respiratory distress. Painless inspiration. Breath sounds n ormal. No wheezes/rales/rhonchi noted. Chest nontender. No accessory muscle usage noted or decreased air movement noted. Abdomen: Soft and nontender. Bowel sounds normal in all 4 quadrants. No distent ion noted. No organomegaly noted. No visible injury noted. Back: No costovertebral angle tenderness. Full range of motion noted. Skin: Skin warm and dry. Normal skin color. Normal skin turgor. No rash es/lesions/lacerations noted. Extremities: No lower extremity edema. Extremities exhibit normal range of motion. Extremities nontender. Neuro: Oriented X 3. No motor deficit. No sensory deficit. Reflexes normal. Results - Labs: Blood work appears satisfactory. - Imaging: Chest X-ray shows subtle pneumonia with increased opacity. Plan - Continue monitoring pneumonia treatment with antibiotics; assess response over the intervening days. - Update cardiac team regarding the current pneumonia status before proceeding with TAVR evaluation. - Carefully consider patient's continuation of anticoagulation therapy during this pneumonia episode and upcoming procedures. - Encourage shoulder pain management post-TAVR, with potential consideration for physical therapy evaluation. - Community navigators to contact for potential support with home care services to alleviate caregiving burden. - Re-assess blood pressure stability and confirm management plan with general store manager, possible titration of Amlodipine. Patient was informed and verbally consented to the use of an ambient scribe for clinic note documentation during this visit. Discussion Notes During the visit, I discussed with the patient the ongoing management of pneumonia and the plan for pre-procedural evaluation before the TAVR. The potential risks and benefits of TAVR versus surgical intervention were reviewed, given his age and comorbid conditions. I clarified the need for clear communication with the cardiology team regarding the pneumonia to avoid complications during the anesthetic procedures for TAVR. We acknowledged the need for more support at home due to his caregiving responsibilities and discussed potential community services available. The patient was advised of the necessity to report any exacerbation of symptoms, namely worsening breathlessness or any cardiovascular symptoms, in the interim. Patient Instructions - Complete the course of prescribed antibiotics and monitor symptoms. - Contact the cardiology team to inform them of current pneumonia status. - Consider reaching out to community services suggested for support with home responsibilities. - Observe blood pressure and report any significant changes, particularly if experiencing dizziness, headaches, or other related symptoms. - Schedule a follow-up in three months as discussed for continuous monitoring of cardiac status and overall health management. - Notify our office immediately if experiencing any new or escalating symptoms.
[2024-06-26 10:12] VITALS: BP 160/78; PULSE 80; TEMP 36.7; O2SAT 99; BMI 36.2
--- OUTSIDE RECORDS SUMMARY | 2024-06-26 11:35 | XMS_ITS ---
Author Organization Anselmo Azevedo DO, FACP Address [address] [place], [place] [id number] Care Team Providers Care Cafeteria Attendant Name Role Phone Anselmo Azevedo Primary Care Provider [phone] REASON FOR VISIT Refill and message MEDICATIONS Medication SIG (Take, Route, Fr equency, Duration) Notes Start Date End Date Status Januvia 100 MG 1 tablet Orally Once a day for 90 days Active Encounters Encounter Location Date Provider Diagnosis ADAM Foster DOP [address] [place], [place] [id number] 10/14/2023 Anselmo Azevedo PLAN OF TREATMENT Medication Medication Name Sig Start Date Stop Date Notes Januvia 100 MG 1 tablet Orally Once a day for 90 days
--- OUTSIDE RECORDS SUMMARY | 2024-06-26 11:35 | XMS_ITS ---
Author Organization Anselmo Azevedo DO [facility] Address [address] [facility] [place] [id number] Care Team Providers Care Sem Manager Name Role Phone Anselmo Azevedo Primary Care Provider REASON FOR VISIT 3 month f/u Encounters Encounter Location Date Provider Diagnosis Anselmo Azevedo DO, FACP [address] [place], [place] [phone] 12/21/2023 Anselmo Azevedo PLAN OF TREATMENT No Information
--- OUTSIDE RECORDS SUMMARY | 2024-06-26 11:35 | XMS_ITS ---
Author Organization Anselmo Azevedo DO, FACP Address [address] [facility] [place] [id number] Care Team Providers Care Executive Kitchen Manager Name Role Phone Anselmo Azevedo Primary Care Provider [phone] ALLERGIES Allergen (clinical drug ingredient) Drug/Non Drug [...] Location Date Provider Diagnosis Anselmo Azevedo DO, [address] [phone] 09/21/2023 Anselmo Azevedo DM II (diabetes mellitus, [...]
--- OUTSIDE RECORDS SUMMARY | 2024-06-26 11:35 | XMS_ITS | Patient Health Record ---
Author Organization Anselmo Azevedo DO, FACP Address [address], [place] [id number] Care Team Providers Care Tea Leaf Reader Name Role Phone Anselmo Azevedo Primary Care Provider ALLERGIES Allergen (clinical drug ingredient) Drug/Non Drug Allergy documented on EMR Reaction Allergy Type Onset Date Status lisinopril Lisinopril cough Drug Allergy Activ e RESULTS Component Value Reference Range Notes Urinalysis and Microscopic Reviewed date:09/19/2023 11:05:33 AM Interpretation:Negative Performing Lab:[facility], [address] [place] [phone] Notes/Report: Color Urine Yellow Appearance Urine Clear PH 6.0 5.0-9.0 Glucose Urine UA Negative Negative mg/dL Urine Blood Negative Negative Specific [place] - Urine 1.010 1.005-1.025 Urine Protein Negative Neg-Trace mg/dL Urine Ketones Negative Negative mg/dL Nitrite Urine Negative Negative Leukocyte Esterase Urine Negative Negative RBC Urine 0-2 0-2 /HPF WBC Urine 0-5 0-5 /HPF Squamous Epithelial Cell Urine 0-2 0-2 /HPF Bacteria Urine None Seen None Seen Hyaline Casts Urine 0-2 0-2 /LPF Uric Acid Reviewed date:09/19/2023 11:22:54 AM Interpretation:Abnormal Performing Lab:[facility], [address] [place] [phone] Notes/Report: Uric Acid 7.3 3.4-7.0 mg/dL Microalbumin, Random Reviewed date:09/19/2023 11:05:33 AM Interpretation:Normal Performing Lab:[facility], [address] [place] [phone] Notes/Report: Creatinine Urine 56.58 Microalbumin Urine < 5.0 Microalbum/Creatinine Ratio Ur TNP <30 ug/mg cr Unable to calculate albumin/creatinine ratio due to low microalbumin or creatinine result. Hemoglobin A1c Reviewed date:09/19/2023 11:05:52 AM Interpretation:Stable Performing Lab:[facility], [address] [place] [phone] Notes/Report: Hemoglobin A1c % 6.6 <6.0 % Hemoglobin A1C Reference Range Adults: 4.8 - 6.0 % Non diabetic: < 6.0 % Goal: < 7.0 % Additional Action Suggested: > 8.0 % Note: Hemoglobin A1c results are invalid for patients with abnormal amounts of HbF. Blood transfusions may impact the HbA1c concentration in the patient sample. Estimated Average Glucose 143 eAG = Estimated average glucose which is %A1C expressed as average glucose, using the formula of the Z4Y-Eowzxtd Average Glucose study (ADAG), Diabetes Care, Vol.31,#8, 2007 Complete Blood Count Auto Di ff Reviewed date:09/19/2023 11:05:33 AM Interpretation:Abnormal Performing Lab:[facility], [address] [place] [phone] Notes/Report: White Blood Count 6.3 4.8-10.8 X10*3/uL Red Blood Count 3.82 4.60-5.80 X10*6/uL Hemoglobin 11.5 14.0-18.0 g/dl Hematocrit 34.7 42.0-52.0 % Mean Corpuscular Volume 90.8 80.0-98.0 fL Mean Corpuscular Hemoglobin 30.1 27.0-33.0 pg Mean Corpuscular HGB Conc 33.1 31.0-36.0 g/dl Red Cell Distribution Width 15.2 11.0-16.0 % Platelet Count 217 160-400 X10*3/uL Mean Platelet Volume 10.2 9.4-12.4 fL Neutrophils Percent Auto 52.1 45-73 % Imm Gran Pct Auto 0.2 0.0-0.4 % Lymphocytes Percent Auto 29.3 20-40 % Monocytes Percent Auto 13.4 2-11 % Eosinophils Percent Auto 4.1 0-4 % Basophils Percent Auto 0.9 0-2 % NRBC Pct Auto 0.0 0.0-0.2 /100WBC Neutrophils Absolute Auto 3.3 2.0-8.3 x10*3/u L Imm Gran Abs Auto 0.01 0.00-0.03 X10*3/uL Lymphocytes Absolute Auto 1.9 1.2-4.9 X10*3/u L Monocytes Absolute Auto 0.9 0.1-1.2 X10*3/uL Eosinophils Absolute Auto 0.3 0.0-0.4 X10*3/u L Basophils Absolute Auto 0.1 0.0-0.2 X10*3/uL NRBC Abs Auto 0.000 0.0-0.012 X10*3/uL Comprehensive Arbon. Panel Fa st Reviewed date:09/19/2023 11:22:32 AM Interpretation:Abnormal Performing Lab:[facility], [address] [place] [phone] Notes/Report: Sodium 138 135-145 mmol/L Potassium 4.1 3.3-5.1 mmol/L Chloride 105 96-108 mmol/L Carbon Dioxide 22 22-29 mmol/L Anion Gap 15 12-20 Blood Urea Nitrogen 17 9-16 mg/dL Creatinine 1.16 0.5-1.4 mg/dL Estimated Glomerular Filt Rate > 60 NOTE: For -Citizen Of [place] individuals, multiply the result by 1.210. Chronic Kidney Disease: Estimated GFR < 60 mL/min/1.73m2 Severe Kidney Disease: Estimated GFR < 15 mL/min/1.73m2 Glucose Fasting 119 60-99 mg/dL A fasting glucose from 100-125 mg/dl is considered impaired (pre-diabetes). Calcium 9.6 8.4-10.2 mg/dL Bilirubin Total 0.7 0.0-1.0 mg/dL Aspartate Amino Transferase 22 5-37 U/L Alanine Aminotransferase 14 0-40 U/L Total Protein 7.4 6.5-8.0 g/dL Albumin Level 4.0 3.5-5.0 g/dL Alkaline Phosphatase 147 39-117 U/L Lipid Panel Reviewed date:09/19/2023 11:22:32 AM Interpretation:Abnormal Performing Lab:[facility], [address] [place] [phone] Notes/Report: Triglycerides 61 <150 mg/dL Desirable Triglyceride: less than 150 mg/dL Borderline High Triglyceride 150-199 mg/dL High Triglyceride: 200-499 mg/dL Very High Triglyceride: greater than or equal to 5OO mg/dL Cholesterol 111 <200 mg/dL Desirable Cholesterol: less than 200 mg/dL Borderline High Cholesterol: 200-239 mg/dL High Cholesterol: greater than 239 mg/dL LDL Cholesterol Calculated 63 <100 mg/dL Desirable LDL: less than 100 mg/dL Near Optimal/Above Optimal LDL: 110-129 mg/dL Borderline High LDL: 130-159 mg/dL High LDL: 160-189 mg/dL Very High LDL: greater than or equal to 190 mg/dL HDL Cholesterol 36 >40 mg/dL Desirable HDL: greater than 40 mg/dL Note: This HDL assay may give artificially low results in patients with liver disease. Complete Blood Count no Diff Reviewed date:03/13/2024 03:37:31 PM Interpretation:Abnormal Performing Lab:[facility], [address] [place] [phone] Notes/Report: White Blood Count 8.0 4.8-10.8 X10*3/uL Red Blood Count 3.71 4.60-5.80 X10*6/uL Hemoglobin 11.5 14.0-18.0 g/dl Hematocrit 35.1 42.0-52.0 % Mean Corpuscular Volume 94.6 80.0-98.0 fL Mean Corpuscular Hemoglobin 31.0 27.0-33.0 pg Mean Corpuscular HGB Conc 32.8 31.0-36.0 g/dl Red Cell Distribution Width 13.1 11.0-16.0 % Platelet Count 205 160-400 X10*3/uL Mean Platelet Volume 9.5 9.4-12.4 fL NRBC Pct Auto 0.0 0.0-0.2 /100WBC NRBC Abs Auto 0.000 0.0-0.012 X10*3/uL Prothrombin Time INR Reviewed date:03/13/2024 03:37:55 PM Interpretation:Abnormal Performing Lab:[facility], [address] [place] [phone] Notes/Report: Prothrombin Time 17.6 10.9-12.4 SEC INTERNATIONAL NORM RATIO 1.5 0.9-1.1 INTERNATIONAL NORMALIZED RATIO (INR) REFERENCE RANGES Reference Range For patients not on anticoagulant therapy: 0.9 - 1.1 INR ranges for oral anticoagulant therapy: For prevention and treatment of venous thrombosis and pulmonary embolism: 2.0 - 3.0 For acute myocardial infarction with aspirin therapy: 2.0 - 3.0 For acute myocardial infarction without aspirin therapy: 3.0 - 4.0 For patients with mechanical prosthetic heart valves: 2.5 - 3.5 Basic Metabolic Panel Reviewed date:03/13/2024 04:17:05 PM Interpretation:Abnormal Performing Lab:[facility], [address] [place] [phone] Notes/Report: Sodium 137 135-145 mmol/L Potassium 4.4 3.3-5.1 mmol/L Chloride 104 96-108 mmol/L Carbon Dioxide 23 22-29 mmol/L Anion Gap 14 12-20 Blood Urea Nitrogen 16 9-16 mg/dL Creatinine 1.03 0.5-1.4 mg/dL Estimated Glomerular Filt Rate > 60 Chronic Kidney Disease: Estimated GFR < 60 mL/min/1.73m2 Severe Kidney Disease: Estimated GFR < 15 mL/min/1.73m2 Glucose Random 140 60-115 mg/dL Calcium 9.9 8.4-10.2 mg/dL REASON FOR REFERRAL Reason Cerumen impaction AD Decreased hearing AD Dry mouth Diagnosis 1 Impacted cerumen of right ear (H61.21) Referral Organization Anselmo Stafford, FACP Referring Provider First Name Anselmo Referring Provider Last Name Roberto Carlos Referring Provider Speciality Internal M edicine Referred Provider Emmett Clemens Referred Provider Specialty Otology, Lar yngology, Rhinology General Notes Radha Gastelum 024 03:03:06 PM EDT > patient will call Dr. Clemens's office to schedule an appointment, per that office's protocol. Referral Priority Routine MEDICATIONS Medication SIG (Take, Route, Frequency, Duration) Notes Start Date End Date Status Gabapentin 300 MG 1 capsule Orally Twi ce a day 10/29/2022 Active Furosemide 20 MG 1 tablet Orally Once a day 11/07/2012 Active amLODIPine Besylate 5 MG 1 tablet Orally Once a day Active Xarelto 20 MG 1 tablet with food Orally Once a day Active Januvia 100 MG 1 tablet Orally Once a day for 90 days Active Ferrous Sulfate 325 (65 Fe) MG 1 tablet Orally Once a day 10/19/2022 Active Atorvastatin Calcium 40 MG TAKE ONE TABL ET BY MOUTH EVERY DAY for 90 Active Omeprazole 20 MG 1 capsule 30 minutes before morning meal Orally Once a day Active Multivitamins 1 tablet Orally Once a day Active Vitamin D (Cholecalciferol) 50 MCG (1999 UT) 1 capsule Orally Once a day 09/10/2019 Active IMMUNIZATIONS Vaccine Route Administration Date Status Comme nts Pneumococcal - PPSV23 Unknown 09/04/2008 Administered DECLINE: Influenza Unknown 01/30/2013 Administered Influenza IM Intramuscular 07/02/2013 Administered Influenza IM Intramuscular 02/05/2014 Administered Influenza Quad IM Intramuscular 01/15/2015 Administered Influenza Quad IM Intramuscular 03/01/2016 Administered Influenza Quad IM Intramuscular 05/09/2017 Administered Influenza High Dose IM Intramuscular 01/04/2018 Administer ed Influenza High Dose IM Intramuscular 06/06/2019 Administer ed Influenza High Dose IM Intramuscular 03/11/2020 Administer ed Influenza Quad IM Intramuscular 03/31/2021 Administered COVID-19 Moderna Vaccine Unknown 06/05/2020 Administere d COVID-19 Moderna Vaccine Unknown 07/03/2020 Administere d COVID-19 Moderna Vaccine Unknown 04/13/2021 Administere d Influenza Quad IM Intramuscular 03/22/2023 Administered SOCIAL HISTORY Tobacco Use: Social History Observation [...] Never (0 point) Points 3 Interpretation Negative PROBLEMS Problem Type ICD Code Onset Dates Problem Status W/U Status Risk SNOMED Code Notes Problem Bronchitis (J40) Active confirmed 72964 004 Problem Vitamin D deficiency (E55.9) Active confirmed 46866841 Problem Iron deficiency (E61.1) Active confirmed 38630623 Problem Paroxysmal atrial fibrillation (I48.0) Active confirmed 852646999 Problem Gastroesophageal reflux disease without esophagitis (K21.9) Active confirmed 272671565 Problem 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) Active confirmed 458603443 Problem DM II (diabetes mellitus, type II), controlled (E11.9) Active confirmed 17411828 Problem Non morbid obesity due to excess calories (E66.09) Active confirmed 505804612 Problem Cellulitis of left lower extremity (L03.116) Active confirmed 280733293 Problem Lumbar spinal stenosis (M48.06) Active confirmed 32885174 Problem Nonrheumatic aortic valve stenosis (I35.0) Active confirmed 244176147 Problem Benign prostatic hyperplasia without lower urinary tract symptoms (N40.0) Active confirmed 339835995 Problem Irritable bowel syndrome, unspecified type (K58.9) Active confirmed 60982154 Problem Holosystolic murmur (R01.1) Active confirmed 48266784 Problem Raynaud''s phenomenon without gangrene (I73.00) Active confirmed Raynaud's disease (728866160) Problem Sciatica, unspecified laterality (M54.30) Active confirmed 07471658 Problem Acute gout of right foot, unspecified cause (M10.9) Active confirmed 9290164832747033 VITAL SIGNS Blood pressure diastolic 54 mm Hg 09/21/2023 Height 69.0 in 09/21/2023 Blood pressure systolic 112 mm Hg 09/21/2023 Weight 224 lbs 09/21/2023 BMI 33.08 kg/m2 09/21/2023 Encounters Encounter Location Date Provider Diagnosis Anselmo Azevedo DO, [address] [id number] 09/21/2023 Anselmo Azevedo DM II (diabetes mellitus, type II), controlled E11.9 ; Gastroesophageal reflux disease without esophagitis K21.9 ; Vitamin D deficiency E55.9 ; Paroxysmal atrial fibrillation I48.0 ; Nonrheumatic aortic valve stenosis I35.0 ; Dry mouth R68.2 ; Impacted cerumen of right ear H61.21 and Iron deficiency E61.1 Anselmo Azevedo , [facility] [address], [place] [id number] 12/21/2023 Anselmo Azevedo Anselmo Azevedo , [facility] [address], [place] [id number] 08/05/2023 Anselmo Azevedo Anselmo Azevedo , [facility] [address], [place] [id number] 09/16/2023 Anselmo Azevedo DM II (diabetes mellitus, type II), controlled E11.9 ; Gastroesophageal reflux disease without esophagitis K21.9 and Acute gout of right foot, unspecified cause M10.9 Anselmo Azevedo , [facility] [address], [place] [id number] 10/14/2023 Anselmo Azevedo ASSESSMENTS Encounter Date Diagnosis Assessment Notes Treatment Notes Treatment Clinical Notes 09/21/2023 Gastroesophageal ref lux disease without esophagitis (ICD-10 - K21.9) 09/21/2023 DM II (diabetes mellitus, type II), controlled (ICD-10 - E11.9) 09/16/2023 Gastroesophageal ref lux disease without esophagitis (ICD-10 - K21.9) 09/16/2023 DM II (diabetes mellitus, type II), controlled (ICD-10 - E11.9) 09/21/2023 Vitamin D deficiency (ICD-10 - E55.9) 09/16/2023 Acute gout of right foot, unspecified cause (ICD-10 - M10.9) 09/21/2023 Paroxysmal atrial fibrillation (ICD-10 - I48.0) 09/21/2023 Nonrheumatic aortic valve stenosis (ICD-10 - I35.0) 09/21/2023 Dry mouth (ICD-10 - R68.2) Refer to ENT 09/21/2023 Impacted cerumen of right ear (ICD-10 - H61.21) 09/21/2023 Iron deficiency (ICD -10 - E61.1) PLAN OF TREATMENT No Information Insurance Providers Payer Name Payer Address Payer Phone Subscriber Number Group Number Insured Name Patient Relationship to Insured Coverage Start Date Coverage End Date MEDICARE [address] [place] [phone] [id number] Thaddeus Velásquez Self - patient is the insured [facility] [address] [place] [address] [id number] Thaddeus Velásquez Self - patient is the insured MEDICAL (GENERAL) HISTORY Medical History History ICD Code type II diabetes mellitus hypercholesterolemia hypertriglyceridemia hypertension obesity elevated LFTs cataracts bells palsy osteoarthritis sciatica lumbar disc disease degenerative joint disease cervical spondylosis 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
--- OUTSIDE RECORDS SUMMARY | 2024-06-26 11:35 | XMS_ITS | Patient Health Record ---
Author Organization [facility] Address [address] [place] [address] Care Team Providers Care Homeworker Name Role Phone Anselmo Azevedo MD Primary Care Provider Unavail able Kelsie Coughlin Unavailable [phone] Helio Guillory Unavailable [phone] Reed Burt Unavailable [phone] Allergies Allergen (clinical drug ingredient) Drug/Non Drug [...] Date Status Xarelto 20 MG Orally Active Colcrys 0.6 [...] Active Colchicine 0.6 MG Orally No t-Taking Metoprolol Succinate ER 25 MG 1 tablet Orally Once a day Not-Taking amLODIPine Besylate Active Voltaren 1 % as directed Externally Active Simvastatin 40 MG Orally No t-Taking Metformin & Diet Manage Prod 1,000mg twice a day Not-Taking Amoxicillin-Pot Clavulanate 875 875-125 [...] days 01/17/2023 Not-Taking glyburide 5mg Not-Ta nikko Immunizations Vaccine Route Administration Date Status Comme [...] Polyneuropathy due to diabetes mellitus type I (559080232) Type 1 diabetes mellitus with diabetic polyneuropathy (E10.42) Active confirmed Problem Unspecified atherosclerosis of [place] arteries of extremities, bilateral legs (I70.203) Active confirmed Problem Chronic ulcer of foot (010002427) Non-pressure chronic ulcer of other part of left foot with fat layer exposed (L97.522) Active confirmed Problem Polyneuropathy due to type 2 diabetes mellitus (400797051) Type 2 diabetes mellitus with diabetic polyneuropathy (E11.42) Active confirmed Problem Acquired hammer toe of right foot (7170354427770164 ) Other hammer toe(s) (acquired), right foot (M20.41) Active confirmed Problem Acquired hammer toe of left foot (4142031203382581 ) Other hammer toe(s) (acquired), left foot (M20.42) Active confirmed Vital Signs Blood pressure diastolic 70 mm Hg 03/21/2024 Height 5 ft 10 in in 03/21/2024 Blood pressure systolic 120 mm Hg 03/21/2024 Weight 215 lbs 03/21/2024 BMI 30.85 kg/m2 03/21/2024 Procedures Procedure Date Ordered Date Performed Result Body Sit e 33652-PTUIZWT NAIL, 6 OR MORE 03/21/2024 N/A 17158-LUEQ SKIN LESIONS, OVER 4 03/21/2024 N/A Encounters Encounter Location Date Provider Diagnosis [facility] [address] 09/15/2023 HelioPatel Tinea unguium B35.1 ; Pain in right toe(s) M79.674 ; Pain in left toe(s) M79.675 ; Type 2 diabetes mellitus with diabetic polyneuropathy E11.42 ; Other hammer toe(s) (acquired), left foot M20.42 ; Other hammer toe(s) (acquired), right foot M20.41 ; Unspecified atherosclerosis of [place] arteries of extremities, bilateral legs I70.203 and Localized edema R60.0 [facility] [address] 12/19/2023 Helio Guillory Tinea unguium B35.1 ; Pain in right toe(s) M79.674 ; Pain in left toe(s) M79.675 ; Type 2 diabetes mellitus with diabetic polyneuropathy E11.42 ; Other hammer toe(s) (acquired), left foot M20.42 ; Other hammer toe(s) (acquired), right foot M20.41 ; Unspecified atherosclerosis of [place] arteries of extremities, bilateral legs I70.203 and Localized edema R60.0 [facility] [address] 03/21/2024 Kelsie Coughlin Type 2 diabetes mellitus with diabetic polyneuropathy E11.42 and Tinea unguium B35.[address] [address] 06/22/2024 Kelsie Coughlin Assessments Encounter Date Diagnosis (ICD Code) Assessment [...] (ICD-10 - M20.41) 09/15/2023 Unspecified atherosclerosis of w[place] arteries of extremities, bilateral legs (ICD-10 - I70.203) 09/15/2023 Localized edema (ICD-10 - R60.0) 12/19/2023 Unspecified atherosclerosis of wales arteries of extremities, bilateral legs (ICD-10 - I70.203) 12/19/2023 Localized edema (ICD-10 - R60.0) Plan Of Treatment Pending Test Test Name Order Date X ray : Ankle, right 2V 05/13/2014 *Uric Acid, Serum 05/13/2014 *CBC With Differential/Platelet 05/13/19 15 *Sedimentation Rate-Westergren 5 X ray : Foot, right 3V 02/06/2014 X ray : Foot, right 3V 05/13/2014 X ray : Foot, right 3V 01/17/2023 21067-CIQOJZH NAIL, 6 OR MORE 01/16/2018 69092-ZLOXITM NAIL, 6 OR MORE 03/21/2024 49706-QXRDEOV NAIL, 6 OR MORE 04/13/2017 68181-CZWTXTW NAIL, 6 OR MORE 07/18/2017 96324-TYHCTTO NAIL, 6 OR MORE 10/17/2017 81089-QGAKIWC NAIL, 6 OR MORE 04/17/2018 04385-AYKVKBK NAIL, 1-5 07/12/2016 92840-ZEKLPHI NAIL, 1-5 10/13/2016 46539-QLJSQEC NAIL, 1-5 01/12/2017 83817-WBDSGDS NAIL, 1-5 06/30/2015 67340-AIRUTPG NAIL, 1-5 10/01/2015 31848-FIPTKMV NAIL, 1-5 01/08/2016 60352-CDSIDDR NAIL, 1-5 04/12/2016 83505-BFGDEVG NAIL, 1-5 10/10/2014 01048-PIPEZDH NAIL, 1-5 02/12/2015 98224- Debride <25 sq cm 02/23/2023 75459-MYRTJCE SKIN/TISSUE 03/16/2023 04175-DEBDJIY SKIN/TISSUE 01/10/2023 20048-QBLXDKH SKIN/TISSUE 05/05/2023 09979- I&D ABSCESS-COMPLICATED,MULTI 91230-FJRI SKIN LESIONS, OVER 4 07/19/19 18 96992-KDXI SKIN LESIONS, OVER 4 04/17/20 18 43979-WPSR SKIN LESIONS, OVER 4 03/21/20 24 16662-HAKI SKIN LESIONS, OVER 4 07/18/19 19 15576-VDHE SKIN LESIONS, OVER 4 10/17/19 19 47189-RNVB SKIN LESIONS, OVER 4 01/18/20 19 78534-JOFK SKIN LESIONS, OVER 4 04/18/20 19 67150-DHJV SKIN LESIONS, OVER 4 07/05/19 20 48435-ZNXA SKIN LESIONS, OVER 4 09/27/19 20 65453-MGQB SKIN LESIONS, OVER 4 12/26/19 20 83227-BPLD SKIN LESIONS, OVER 4 03/19/20 20 98279-THEK SKIN LESIONS, OVER 4 06/23/19 21 77239-PEAS SKIN LESIONS, OVER 4 09/23/19 21 70581-XVLA SKIN LESIONS, OVER 4 12/26/19 21 51799-TXIX SKIN LESIONS, OVER 4 03/30/20 21 19743-GFRO SKIN LESIONS, OVER 4 07/02/19 22 28212-PGEX SKIN LESIONS, OVER 4 01/17/20 18 82225-KSYX SKIN LESIONS, OVER 4 10/18/19 18 41735-DLUI SKIN LESIONS, OVER 4 01/13/20 17 06959-TCKH SKIN LESIONS, OVER 4 04/13/20 17 58134-ATDX SKIN LESIONS, OVER 4 02/13/20 15 26456-SLOE SKIN LESIONS, OVER 4 06/12/19 15 22524-KOVO SKIN LESIONS, OVER 4 10/11/19 15 20385-GXRG SKIN LESIONS, OVER 4 04/17/20 14 58880-GZCW SKIN LESIONS, OVER 4 04/12/20 16 95730-FOOG SKIN LESIONS, OVER 4 01/08/20 16 42861-MICL SKIN LESIONS, OVER 4 10/01/19 16 66733-CZKA SKIN LESIONS, OVER 4 06/30/19 16 50708-MYUH SKIN LESIONS, OVER 4 07/13/19 17 61881-IQAX SKIN LESIONS, OVER 4 10/14/19 17 00609-SNLU SKIN LESIONS, 2 TO 4 02/07/20 14 60239-QUYJ NAIL(S) 02/06/2014 71125-ROSC NAIL(S) 04/17/2014 53977-OYEJ NAIL(S) 10/10/2014 89607-KAWZ NAIL(S) 06/12/2014 61655-QKVR NAIL(S) 02/12/2015 04041-JHZI NAIL(S) 07/12/2016 97893-TCBO NAIL(S) 01/12/2017 00644-LXWP NAIL(S) 10/13/2016 71293-KDYU NAIL(S) 06/30/2015 50533-MQJM NAIL(S) 10/01/2015 57316-UOYS NAIL(S) 01/08/2016 50594-DOQR NAIL(S) 04/12/2016 74491-RVZATYOP OF HEMATOMA/FLUID 018 63585-JVJSRUZZ OF HEMATOMA/FLUID 023 Next Appt Details Provider Name:Kelsie Garcia nik, 08/23/2024 01:15:00 PM, [address] [place], [address], Insurance Providers Payer Name Payer Address Payer Phone Subscriber Number Group Number Insured Name Patient Relationship to Insured Coverage Start Date Coverage End Date Medicare National [employer]t [employer] [address] [place] [address] [id number] Thaddeus Velásquez Self - patient is the insured [address] [place] [address] [address] [facility] [place] [address] [id number] Thaddeus Velásquez Self - patient is the insured Medical (General) History Medical History History ICD Code Arthritis Back,Hip,and Knee pain Broken bones Cataracts Chicken pox Measles Mumps type II diabetes Neuropathy Sciatica pericarditis Surgical History Surgery Date(Month/Year) cystoscopy cataract 2010 Hospitalization History Reason Date(Month/Year) [facility] nose bleed 2018 [facility] ER for chest pain. 11/08/2017 [facility] pt was light headed, sweaty. 03/2016
--- OUTSIDE RECORDS SUMMARY | 2024-06-26 11:35 | XMS_ITS ---
[facility] Address [address] [address] Care Team Providers Care Diving Supervisor Name Role Phone Anselmo Azevedo MD Primary Care Provider Unavail able Kelsie Coughlin Unavailable [phone] Reed Burt Unavailable [phone] Allergies Allergen (clinical drug ingredient) Drug/Non Drug [...] preulcerative skin lesions for . 02/06/2014 Not-Taking Indomethacin 50 MG 1 capsule with food Orally Three times a day for 10 days 05/13/2014 Not-Taking glyburide 5mg Not-Ta nikko Aspirin Not-Taking Colchicine [...] 12 hrs for 30 days 01/17/2023 Not-Taking Januvia Active Furosemide 20 MG Orally Act esha Atorvastatin Calcium 40 MG 1 tablet Orally Once a day for 30 day(s) Active amLODIPine Besylate Active Voltaren 1 % as directed Externally Active Encounters Encounter Location Date Provider Diagnosis [facility] [address] [address] 06/22/2024 Reed Burt Plan Of Treatment Next Appt Details Provider Name:Kelsie zaragoza, 08/23/2024 01:15:00 PM, [address] [place] [address], [phone], Progress Notes * Thaddeus VELÁSQUEZ JrDOB:1944 (79 yo M)Acc No.[id number]:06/22/2024 Progress Note Patient:?Thadedus VELÁSQUEZ Jr Provider:?Reed Burt DPM :1945???Age:79 Y???Sex:Male Tanner e:06/22/2024 Address:[address] [place], [place] [id number] Pcp:Anselmo Azevedo MD Subjective: * Chief Complaints: * ??? * Medical History:?Arthritis, Back,Hip,and Knee pain, Broken bones, Cataracts, Chicken pox, Measles, Mumps, type II diabetes, Neuropathy, Sciatica, Pericarditis. * Medications:?Taking Voltaren 1 % Gel as directed Externally [...] food Orally Three times a day * Allergies:?PredniSONE. Objective: * Vitals:? Assessment: Plan: * Treatment: * Images: * The named appointment provid er may or may not be the originator of this progress note, and it is not deemed complete until electronically signed by the appointment provider. Sign off status: Pending * Provider:?Reed Burt DPM Date:?2024 Generated for Alexandria brock/Skyler/Bronwyn on:?06/26/2024 11:35 AM EST
--- OUTSIDE RECORDS SUMMARY | 2024-06-26 11:35 | XMS_ITS ---
Author Organization [facility] Address [address] [place] [address] Care Team Providers Care Infection Prevention Specialist Name Role Phone Anselmo Azevedo MD Primary Care Provider Unavail Kelsie Yepez [phone] REASON FOR VISIT same day rs 06/22/24 Encounters Encounter Location Date Provider Diagnosis [address] [address] 06/22/2024 Kelsie Coughlin Plan Of Treatment Next Appt Details Provider Name:Kelsie zaragoza, 08/23/2024 01:15:00 PM, [address] [place] [address], [phone], Progress Notes * DIDIERThaddeus Hattie MortonDOB:1944 (79 yo M)Acc No.[id number]:06/22/2024 Patient:?Thaddeus VELÁSQUEZ Jr :1945???Age:79 Y???Sex:Male Address:[address] [place] [address] [facility] [place] [address] * true * Date:? Generated for Narcisoi delmy/Skyler/eTransmitting on:?06/26/2024 11:35 AM EST
--- OUTSIDE RECORDS SUMMARY | 2024-06-26 11:36 | XMS_ITS ---
Author Organization [facility] Address [address] [facility] [place] [address] Care Team Providers Care Eviscerator Name Role Phone Anselmo Azevedo MD Primary Care Provider Unavail Kelsie Yepez Unavailable [phone] Allergies Allergen (clinical drug ingredient) Drug/Non Drug [...] Polyneuropathy due to diabetes mellitus type I (379559362) Type 1 diabetes mellitus with diabetic polyneuropathy (E10.42) Active confirmed Vital Signs Height 5 ft 10 in in 03/21/2024 Weight 215 lbs 03/21/2024 BMI 30.85 kg/m2 03/21/2024 Blood pressure systolic 120 mm Hg 03/21/20 24 Blood pressure diastolic 70 mm Hg 024 Procedures Procedure Date Ordered Date Performed Result Body Sit e 39254-HELTCKF NAIL, 6 OR MORE 03/21/2024 N/A 49007-RXJF SKIN LESIONS, OVER 4 03/21/2024 N/A Encounters Encounter Location Date Provider Diagnosis [facility] [place] [address] [place] [address] 03/21/2024 Kelsie Coughlin Type 2 diabetes mellitus with diabetic polyneuropathy E11.42 and Tinea unguium B35.1 Assessments Encounter Date Diagnosis (ICD Code) Assessment Notes Treatment Notes Treatment Clinical Notes Section Notes 03/21/2024 Type 2 diabetes mellitus with diabetic polyneuropathy (ICD-10 - E11.42) 03/21/2024 Tinea unguium (ICD-10 - B35.1) Plan Of Treatment Pending Test Test Name Order Date 48937-[id number] NAIL, 6 OR MORE 03/21/2024 58122-CDLK SKIN LESIONS, OVER 4 03/21/20 Next Appt Details Follow Up: 3 Months, Reason: Provider Name:Kelsie zaragoza, 08/23/2024 01:15:00 PM, [address] [facility], [place], [address], Procedure Notes * Category Sub-Category Detail Notes [...] use of a nail nipper and/or dremel-type hardboard grinder, to a more viable healthy nail plate or bed tissue 6-10. Silver nitrate used for any petechial bleeding as necessary. Definitive antifungal treatment options have been reviewed and discussed with the patient. The patient chooses, no pharmaceutical tx - 58170 Keratoma Treatment Parring or Cutting o f Benign Hyperkeratotic Lesion(s) (-57) More than 4 Lesions - The Benign hyperkeratotic lesions, as described in exam, were pared, and/or cut utilizing a sterile 15 blade, tissue nippers, and/or dremel - 10923 Progress Notes * Thaddeus VELÁSQUEZ JrDOB:1944 (79 yo M)Acc No.[id number]:03/21/2024 Progress Note Patient:?Thaddeus VELÁSQUEZ Jr Provider:?Kelsie Coughlin DPM :1945???Age:79 Y???Sex:Male Tanner e:03/21/2024 Address[place] [place], [place] [address] Pcp:Anselmo Azevedo MD Subjective: * Chief Complaints: [...] History:?cystoscopy cataract 2010 * [place]/Major Diagno stic [place] [place]. [place] [place]. [place] [place] * Family History:?Mother: dece [...] use of a nail nipper and/or dremel-type hardboard grinder, to a more viable healthy nail plate or bed tissue 6-10. Silver nitrate used for any petechial bleeding as necessary. Definitive antifungal treatment options have been reviewed and discussed with the patient. The patient chooses, no pharmaceutical tx - 47462.?Keratoma Treatment:?Parring or Cutting of Benign Hyperkeratotic Lesion(s)?(-57) More than 4 Lesions - The Benign hyperkeratotic lesions, as described in exam, were pared, and/or cut utilizing a sterile 15 blade, tissue nippers, and/or dremel - 89417.? * Procedure Codes:?46146 DEBRI DE NAIL, 6 OR MORE, Modifiers: XS 08193 TRIM SKIN LESIONS, OVER 4, Modifiers: XS * Follow Up:?3 Months * Images: * Sign off status: Completed true * Provider:?Kelsie Coughlin DPM Date:?05/21/2023 Generated for Alexandria brock/Skyler/Bronwyn on:?06/26/2024 11:35 AM EST History and Physical Notes * HPI [...]
== END 2024-06-26 10:48 | disposition home or self-care (01) ==
LOC: HO.HMCSH 10:00
PROVIDERS: PCP Physician Assistant Medical; Visit Provider Physician Assistant Medical
DX: I10 Essential (primary) hypertension (principal); E11.9 Type 2 diabetes mellitus without complications; I48.0 Paroxysmal atrial fibrillation; E78.5 Hyperlipidemia, unspecified; I35.0 Nonrheumatic aortic (valve) stenosis; R06.09 Other forms of dyspnea; E66.9 Obesity, unspecified; E78.1 Pure hyperglyceridemia

== ENCOUNTER → 2024-06-26 10:00 | Outpatient (BNVA) | payer MEDICARE, OTHER, SELFPAY | PROVIDERS: PCP Physician Assistant Medical; Visit Provider Physician Assistant Medical | DX: I10 Essential (primary) hypertension (principal); E11.9 Type 2 diabetes mellitus without complications; I48.0 Paroxysmal atrial fibrillation; I35.0 Nonrheumatic aortic (valve) stenosis; E78.5 Hyperlipidemia, unspecified; R06.09 Other forms of dyspnea; E78.1 Pure hyperglyceridemia; E66.9 Obesity, unspecified | CPT/HCPCS: 99212 ==

== ENCOUNTER 2024-07-10 14:26 | Outpatient (REF) | payer MEDICARE, OTHER, SELFPAY ==
--- NOTE | ~2024-07-10 | XR_ITS ---
EXAMINATION: XR CHEST 2 VIEWS HISTORY: R05.9 - Cough, unspecified COMPARISON: Comparison is made with the prior examination dated 06/20/2024. FINDINGS: PA and lateral views of the chest are submitted. In the interval since the prior study, the patient is status post placement of a left subclavian dual-chamber pacemaker with leads in the right atrium and ventricle. The patient is also status post aortic valve replacement. Again seen are increased interstitial markings in the mid to lower lung zones bilaterally. No focal airspace opacity is seen. There is no pleural effusion, pneumothorax, or pulmonary vascular congestion. The heart is normal in size. There is degenerative disc disease of the spine. XR/XR chest 2V IMPRESSION: Status post interval placement of a left-sided dual-chamber pacemaker and a prosthetic aortic valve. Stable fibrotic changes. Electronically signed by: Anselmo Choi MD 07/11/2024 07:40 AM EDT
== END 2024-07-10 14:27 | disposition home or self-care (01) ==
LOC: HO.HMGCX 14:26
PROVIDERS: PCP Internal Medicine; Visit Provider Physician Assistant Medical
DX: Z09 Encounter for follow-up examination after completed treatment for conditions other than malignant neoplasm (principal); I35.0 Nonrheumatic aortic (valve) stenosis; I48.0 Paroxysmal atrial fibrillation; R06.00 Dyspnea, unspecified; R05.9 Cough, unspecified; G47.00 Insomnia, unspecified
CPT/HCPCS: 71046; 96127; 99212

== ENCOUNTER 2024-07-10 14:26 | Outpatient (AMB) | payer MEDICARE, OTHER, SELFPAY ==
[2024-07-10 14:36] VITALS: BP 136/60; PULSE 86; RESP 14; TEMP 36.6; O2SAT 97; BMI 34.6
--- NOTE | 2024-07-10 14:36 | A.OFFPC_ITS ---
Vital Signs 07/10/24 14:36 Height 5 ft 6.25 in Weight 216 lb BMI 34.6 BP 136/60 Respiration 14 Pulse 86 Pulse Source Pulse Oximeter Temp 97.8 F Temp Source Temporal Artery Scan Pulse Oximetry (%) 97 Oxygen Delivery Method Room Air Intake Visit Reasons: discharge follow up Intake Note: Visit Reason: TCM Intake Note: Patient is here for hospital discharge follow up. Patient was discharged from [facility] on 07/07/2024 Splunk Developer Required: No Residential Building Inspector: Not Required per policy Accompanied by: Self / Same As Patient Allergies prednisone Allergy (Unknown, Verified 07/10/24 15:24) GI Medication List - Last Reconciled 07/10/24 by Katherin Slade PA-C acetaminophen 650 mg PO Q8H PRN albuterol sulfate 90 mcg/actuation 1 inh inhalation QID PRN atorvastatin 40 mg PO DAILY cholecalciferol (vitamin D3) 50 mcg PO DAILY gabapentin 300 mg PO BID [iron PO] omeprazole magnesium (Prilosec) 10 mg PO DAILY prednisone 40 mg (2 x 20 mg) PO DAILY 3 days rivaroxaban (Xarelto) 20 mg PO DAILY sitagliptin phosphate 100 mg PO DAILY trazodone 50 mg PO BEDTIME PRN white petrolatum-mineral oil 83-15 % (Artificial Eye Lubricant) 1 appl ophthalmic (eye) BID-QID PRN Tobacco use date assessed: 07/10/24 Fall risk assessment: No Falls in past year Last assessed Fall Risk: 07/10/24 Dental Screening Dental Screen Date: 07/10/24 Did you have a dental visit in the last 12 months?: No Did you have a dental problem in the last 6 months where you did not have access to dental care?: No [facility] Medical History (Updated 07/10/24 @ 15:54 by Katherin Slade PA-C) Insomnia Hospital discharge follow-up History of echocardiogram Hypertriglyceridemia Tubular adenoma Dyspnea on exertion Obesity (BMI 30-39.9) Right shoulder injury Right shoulder pain Cough Raynaud disease Edema Aortic stenosis Hyperlipemia HTN (hypertension) Type 2 diabetes mellitus PAF (paroxysmal atrial fibrillation) Surgical History History of colonoscopy (~01/04/20) History of cardiac cath History of cataract surgery Family History Father No problems noted. Mother No problems noted. Paternal Grandfather CVD (cardiovascular disease) Paternal Grandmother No problems noted. Maternal Grandfather CVD (cardiovascular disease) Maternal Grandmother No problems noted. 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 1. Little interest or pleasure in doing things: not at all 2. Feeling down, depressed, or hopeless: not at all 3. Trouble falling or staying asleep, or sleeping too much: not at all 4. Feeling tired or having little energy: not at all 5. Poor appetite or overeating: not at all 6. Feeling bad about yourself - or that you are a failure or have let yourself o r your family down: not at all 7. Trouble concentrating on things, such as reading the newspaper or watching television: not at all 8. Moving or speaking so slowly that other people could have noticed. Or the opposite - being so fidgety or restless that you have been moving around a lot more than usual: not at all 9. Thoughts that you would be better off or of hurting yourself in some way: not at all Total score: 0 Depression Screening Interpretation: Negative Depression Screening Done: Yes 86108 - PHQ-9 Billing: Yes Source: Developed by Drs. Anselmo Gill, Kimberly Salazar, Will jackson nd colleagues, with an educational archana from [employer]. Thrive Questionnaire Date Thrive assessed: 07/10/24 I am a: Patient What is your living situation today?: I have a steady place to live Within the past 12 months, did the food you bought not last and you didn't have the money to get more?: Never true Within the past 12 months, did you worry whether your food would run out before you got money to buy more?: Never true Do you have trouble paying for medicines?: No Do you have trouble getting transportation to medical appointments?: No Do you have trouble paying your heating and electricity bill?: No Do you have trouble taking care of your child, family member or friend?: No Do you have trouble with day-to-day activities such as bathing, preparing meals, shopping, managing finances, etc.?: No Are you currently unemployed and looking for a job?: No Are you interested in more education?: No THRIVE Score: 0 AUDIT C Alcohol Use Questionnaire (AUDIT-C) 1. How often do you have a drink containing alcohol?: Monthly or less 2. How many drinks containing alcohol do you have on a typical day when you are drinking?: 1 or 2 3. How often do you have six or more drinks on one occasion?: Never Total Score: 1 Score Reviewed/Action Taken: No JEANA-7 AMB Questionnaire JEANA-7 Date JEANA - 7 assessed: 07/10/24 Feeling nervous, anxious, or on edge: 0 = Not at all Not being able to stop or control worryin = Not at all Worrying too much about different things: 0 = Not at all Trouble relaxin = Not at all Being so restless that it is hard to sit still: 0 = Not at all Becoming easily annoyed or irritable: 0 = Not at all Feeling afraid as if something awful might happen: 0 = Not at all Total JEANA-7 score (0-4 normal; 5-9 mild; 10-14 moderate; 15-21 severe): 0 Source: Developed by Drs. Anselmo Gill, Kimberly Salazar, Will Kasper and colleagues, with an educational archana from [employer]. JEANA-7 Assessment Billing JEANA-7 Assessment Tool: JEANA-7 Assessment 81066 Physical exam (Primary Care) Vital Signs: Last Vital Signs Temp 97.8 F 07/10/24 14:36 Pulse 86 07/10/24 14:36 Resp 14 07/10/24 14:36 BP 136/60 07/10/24 14:36 Pulse Ox 84 L 07/10/24 14:36 Oxygen Delivery Method Room Air 07/10/24 14:36 Vitals signs have been reviewed. BMI result Body Mass Index 34.6 Tobacco/Smoking Status: Tobacco use Status Tobacco use date assessed 07/10/24 07/10/24 14:49 Patient Tobacco Use Status Former Tobacco user 07/10/24 14:49 Tobacco use type Cigarette 07/10/24 14:49 PHQ-9: PHQ-9 Score PHQ-9: Total score 0 07/10/24 14:50 Depression Screening Interpretation: Negative Thrive Assessment: Date of Thrive Assessment Date Thrive assessed 07/10/24 07/10/24 14:49 Coding Level of Care Code TCM High MDM <= 7 Days Complex EM visit Add On G2211 Diagnoses Hospital discharge follow-up Z09 Aortic stenosis I35.0 PAF (paroxysmal atrial fibrillation) I48.0 Dyspnea on exertion R06.09 Insomnia G47.00 Cough R05.9 Additional Codes PHQ-9 - 69928 - PHQ-9 Billing: Yes ([id number]) JEANA-7 Assessment Billing - JEANA-7 Assessment Tool: JEANA-7 Assessment 92206 ([id number]) Assessment & Plan Assessment & Plan (1) Hospital discharge follow-up: Code(s): Z09 - Encounter for follow-up examination after completed treatment for conditions other than malignant neoplasm Category: Medical Plan: Patient admitted at [facility] on 07/05/2024 and discharged on 07/07/2024 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 Patient doing well. Condition is chronic and stable continue to monitor. (2) Aortic stenosis: Code(s): I35.0 - Nonrheumatic aortic (valve) stenosis Category: Medical Plan: s/p TAVR and cardiac pacemaker in-situ. Currently on Xarelto 20 mg daily. Is being followed by cardiology at [facility] and at [facility]. Has to call to make a follow-up appointment with [facility] cardiac rehab. Condition is chronic and stable continue to monitor. (3) PAF (paroxysmal atrial fibrillation): Code(s): I48.0 - Paroxysmal atrial fibrillation Category: Medical Plan: s/p TAVR and cardiac pacemaker in-situ. Currently on Xarelto 20 mg daily. Is being followed by cardiology at [facility] and at [facility]. Has to call to make a follow-up appointment with [facility] cardiac rehab. Condition is chronic and stable continue to monitor. (4) Dyspnea on exertion: Code(s): R06.09 - Other forms of dyspnea Category: Medical Plan: s/p TAVR and cardiac pacemaker in-situ. Currently on Xarelto 20 mg daily. Is being followed by cardiology at [facility] and at [facility]. Has to call to make a follow-up appointment with [facility] cardiac rehab. Condition is chronic and stable continue to monitor. (5) Insomnia: Code(s): G47.00 - Insomnia, unspecified Category: Medical Plan: Patient with insomnia. Will trial trazodone 50 mg at bedtime. Condition is chronic and stable with any to monitor. (6) Cough: Code(s): R05.9 - Cough, unspecified Category: Medical Plan: Patient with cough had a chest x-ray on 06/20/2024 which revealed subtle pneumonia. Was placed on Augmentin prior to his procedure. Finish the course. Was feeling mildly better although continues to have cough and chest congestion. The dyspnea on exertion continues to be the same not worsened. There is no lower extremity edema or calf tenderness. He denies any fevers, chills, chest pain or any other symptoms related to this. Will send patient for repeat chest x-ray. Will refill the patient's albuterol inhaler. Patient will be started on cephalosporin for antibiotics for possible bronchitis pneumonia. Will also start him on a short course of steroids 40 mg for the next 3 days. Will continue to monitor. Plan Plan Patient was informed and verbally consented to the use of an ambient scribe for clinic note documentation during this visit. 1. Status Post Transcatheter Aortic Valve Replacement Tavr Continued monitoring, with follow-up appointments ensuring stable post- procedural status. 2. Sinus Bradycardia Maintain current monitoring and follow-up care given the stable post-procedural state. 3. Aortic Stenosis The patient will follow up with scheduled echocardiograms to assess the aortic valve status post-TAVR procedure. 4. Sleep Disturbance Consideration given to prescribing trazodone for improved sleep quality; careful monitoring recommended due to cardiac conditions. 5. Bacterial Pneumonia Recommend repeat chest x-ray due to persistent cough to rule out unresolved pneumonia, consider further antibiotics. 6. Paroxysmal Atrial Fibrillation Maintain current anticoagulation with Xarelto and monitor via cardiology follow- up appointments. Discussion Notes I discussed with the patient the current findings following his recent TAVR procedure and monitored cardiovascular status. We reviewed the importance of scheduled follow-ups, including his echocardiogram on July 23, and cardiology evaluations to monitor his heart function and to adjust any therapies as needed. The persistent cough was addressed, and I suggested a repeat chest x-ray to evaluate the progression of pneumonia, which might necessitate another course of antibiotics. We also discussed his sleep difficulties. I explained the potential option of prescribing trazodone for sleep assistance, emphasizing monitoring given his recent cardiac intervention. Further management recommendations were provided, including the option of additional social support and utilization of healthcare resources to assist in home care. Orders: Orders XR chest 2V Today R05.9 - Cough, unspecified Medications: New prednisone 40 mg (2 x 20 mg) PO DAILY 3 days 6 tabs 0RF trazodone 50 mg PO BEDTIME PRN 90 tabs 1RF sleep white petrolatum-mineral oil 83-15 % (Artificial Eye Lubricant) 1 appl ophthalmic (eye) BID-QID PRN 3.5 grams 5RF dry eye(s) cefpodoxime must administer with a meal/food 200 mg PO BID 10 days 20 tabs 0RF pna Refilled albuterol sulfate 90 mcg/actuation 1 inh inhalation QID PRN 8.5 grams 3RF shortness of breath or wheezing Patient Instructions: Patient Instructions - Attend scheduled echocardiogram at [place] on July 23 and follow up with your supervisor component assembler as planned. - Take Tylenol 325 mg as needed for pain every 8 hours, but do not exceed the recommended dosage. - Arrange for a repeat chest x-ray to check for pneumonia improvement; complete this at your earliest convenience. - Consider using the albuterol inhaler as needed if instructed. - Monitor your symptoms closely, especially if experiencing worsening shortness of breath or leg swelling. Seek immediate care if oxygen levels fall below 90%. - If using trazodone for sleep issues, take 50 mg at night, starting at a lower dose if necessary and monitor for any side effects. - Reach out to healthcare providers if any new symptoms arise or if there are any concerns regarding medications or recovery progress. - Continue to involve family members for assistance and consider accepting social contact worker support for additional help at home. Scribe Plan - Not visible on output: Patient presents to the office for a TCM visit. Date of admission: 07/05/2024 Date of discharge: 07/07/2024 This is a Follow-up from admission at [facility]/Hospital Course/Discharge Summary: The patient is a 79-year-old male presenting for a follow-up after Transcatheter Aortic Valve Replacement (TAVR) for severe aortic stenosis. Severe aortic stenosis warranted this intervention as echocardiography confirmed the worsening condition, leading to the procedure done on July 05. Post-procedure, the patient experienced a transient heart block but resumed normal sinus rhythm shortly thereafter. A prior chest x-ray before the TAVR showed pneumonia, treated with antibiotics leading to partial symptom resolution, although a cough persists. The patient desires evaluation for persistent cough, which temporarily responded to antibiotics but persists, producing no mucus but associated with post-nasal drip sensations. Sleep disruptions include waking without ease of return to sleep. Medications have been adjusted post-procedure, with amlodipine discontinued and Xarelto continued. The patient manages pain with Tylenol. Discharged to/Current Location: Home Lives with: who is in an electric wheelchair and he cares for her Diagnosis: Paroxysmal atrial fibrillation; aortic stenosis; cardiac pacemaker in-situ; sinus bradycardia-tachycardia syndrome; status post transthoracic aortic valve replacement using [employer]. Procedures performed: Right transfemoral TAVR with a 34 Evolut FX plus. Cardiac pacemaker in-situ New medications: Patient was started on Tylenol 325 mg 2 tablets to be taken every 8 hours as needed for pain. Discontinued medications: Amlodipine 5 mg daily will be discontinued at this time. Change medications/dosing: No changes in dosing or changes in medication other than the Tylenol and the amlodipine. Pending labs: There are no pending labs. Pending diagnostic test: There are no pending diagnostic test. Any Follow-up Labs required? Patient is scheduled for CBC, basic metabolic panel 1 week from discharge. He understands and will go for this blood work. Any Follow-up Diagnostic test required? No follow-up diagnostic tests are required. How are you feeling? Patient reports he is feeling okay. He denies any recent fevers, worsening shortness of breath or any worsening fatigue. Reports that he has not been able to sleep despite taking melatonin and would like something to help him sleep. Are you in any pain or discomfort? Patient reports chronic left shoulder pain where he has an orthopedic appointment scheduled otherwise denies any other pain or discomfort to the surgical sites. Do you have any questions about your condition or discharge instructions? Patient does not have any questions about his medical condition or discharge instructions at this time. Were you able to get your medications filled? Patient was able to feel all his medications. Do you have any questions about your medications? Patient denies having any questions about his medications at this time. Any referrals required? No referrals are required at this time. Were you able to schedule your follow-up appointment? - Patient has a follow-up echocardiogram 07/23/2024 at [facility] Cardiology Department - Patient has follow-up with Dr. Helton at [facility] August 16 - Patient has a follow-up with [facility] August 21 - patient has to call [facility] cardiac rehab within 2-3 weeks for follow-up appointment in [facility]. He is aware about this. He has their information If home health was ordered, have they contact you? Home health was not ordered at this time. Although patient is interested in home health services. Any outpatient services, if so, are you scheduled? Patient has cardiac rehab schedule that he has to call to make an appointment at [facility]. Are there any additional resources like transportation you might need during her recovery? Patient does not need transportation services although interested in VNA, MOTOR OPERATOR and meals on wheels services. His son brought him today to this appointment. His is currently utilizing on electric wheelchair. - VNA? Patient interested in VNA services as they were not set up. - MOTOR OPERATOR? Patient interested in MOTOR OPERATOR services they were not set up. - Meals on wheels? Patient reports his son, friends and family bring him food. Although he would be interested in meals on wheels. Would have to be cardiac low-sodium diet. Educational need/resources: None at this time What support system do you have? , Son and friend's Social History - Resides with ; supports her, especially significant due to her use of a wheelchair. - Son provides assistance occasionally, including transportation. - Experiences difficulties managing household tasks due to recent health challenges. - Meals are supplemented by friends occasionally. Review of Systems - Respiratory: Reports persistent cough, denies fever or significant production of sputum. - General: Reports sleep disturbances, denies recent weight change. - Others: Denies worsening shortness of breath or leg edema. Physical Exam Appearance: Alert. Oriented X3. No acute distress. Head: Normal external exam. Normocephalic. Atraumatic. Eyes: Pupils are equal, round, and reactive to light. Extraocular movements intact. Conjunctiva and sclera normal. Eyelids normal. Ears: External auditory canal normal. Tympanic membranes normal. Throat: Pharynx normal. Uvula midline. Moist mucous membranes. Neck: Normal inspection. Neck supple. Full range of motion. No adenopathy. Thyroid Normal. No meningeal signs. No neck mass noted. Cardiovascular: Heart rate 79 bpm. Normal heart rate and rhythm. Heart sound normal. No murmurs noted. Pulses normal throughout. Respiratory: No respiratory distress. Painless inspiration. Breath sounds normal. No wheezes/rales/rhonchi noted. To left chest wall patient has well healing wound with mild ecchymosis and soft tissue swelling. There is no advancing erythema, streaking, fluctuance, purulent drainage, foul odor or signs of active infection. Mild tenderness which is expected. Otherwise no tenderness to the rest of the chest wall. No accessory muscle usage noted or decreased air movement noted. Abdomen: Soft and nontender. Bowel sounds normal in all 4 quadrants. No distention noted. No organomegaly noted. No visible injury noted. Back: No costovertebral angle tenderness. Full range of motion noted. Skin: Skin warm and dry. Normal skin color. Normal skin turgor. No rashes/lesions/lacerations noted. Extremities: No lower extremity edema. There is no calf tenderness noted. Extremities exhibit normal range of motion. Extremities nontender. Neuro: Oriented X 3. No motor deficit. No sensory deficit. Reflexes normal. Results - Imaging: Previous chest x-ray showed pneumonia prior to TAVR. - Echocardiogram: Post-TAVR results showed trace paravalvular leak but no significant pericardial effusion.
--- OUTSIDE RECORDS SUMMARY | 2024-07-10 17:41 | XMS_ITS ---
[facility] Address [address] [place] [address] Care Team Providers Care Bark Skinner Name Role Phone Anselmo Azevedo MD Primary Care Provider Unavail able Kelsie Coughlin Unavailable [phone] Reed Burt Unavailable [phone] Allergies Allergen (clinical drug ingredient) Drug/Non Drug [...] Active Encounters Encounter Location Date Provider Diagnosis [facility] [address] [address] 06/22/2024 Reed Burt Plan Of Treatment Next Appt Details Provider Name:Kelsie zaragoza, 08/23/2024 01:15:00 PM, [address] [place] [address], [id number], Progress Notes * Thaddeus VELÁSQUEZ JrDOB:1944 (79 yo M)Acc No.[id number]:06/22/2024 Progress Note Patient:?Thaddeus VELÁSQUEZ Jr Provider:?Reed Burt DPM :1945???Age:79 Y???Sex:Male Tanner e:06/22/2024 Address:[address] [place], [place] [id number] Pcp:Anselmo Azevedo MD Subjective: * Chief Complaints: [...] Burt DPM Date:?2024 Generated for Alexandria brock/Skyler/Bronwyn on:?07/10/2024 07:56 AM EDT
--- OUTSIDE RECORDS SUMMARY | 2024-07-10 17:41 | XMS_ITS | Patient Health Record ---
Author Organization [facility] Address [address] [place] [address] Care Team Providers Care Forklift Driver Name Role Phone Roberto Carlos (RETIRED) Anselmo BANDA Primary Care Provid er Unavailable Miguel Saha Jr Unavailable Allergies Allergen (clinical drug ingredient) Drug/Non Drug Allergy documented on EMR Reaction Allergy Type Onset Date Status PredniSONE upset stomach Drug Allergy Ac tive Reason For Referral No Information Medications Medication [...] Active Metamucil - as directed Orally Active Immunizations Vaccine Route Administration Date Status Comme nts Flu vaccine no Preserv 3 and > Unknown 02/13/2014 Admin istered Influenza Unknown 03/02/2019 Administered Influenza Unknown 12/31/2020 Administered Social History Alcohol Screen Question Answer Notes Did you [...] Never (0 point) Points 0 Interpretation Negative Problems Problem Type SNOMED Code ICD Code Onset Dates Problem Status W/U Status Risk Notes Problem 364401600 Colon cancer screening (Z12.11) Active confirmed Problem 665107629 Change in bowel habits (R19.4) Active confirmed Problem 30075634 Diarrhea, unspecified type (R19.7) Active confirmed Problem 950854987 Gas bloat syndro me (K92.89) Active confirmed Problem 669309642 Gastroesophageal reflux disease, unspecified whether esophagitis present (K21.9) Active confirmed Vital Signs Blood pressure diastolic 00 mm Hg 08/11/2023 Height 70.5 in 08/11/2023 Blood pressure systolic 00 mm Hg 08/11/2023 Weight 220 lbs 08/11/2023 BMI 31.12 kg/m2 08/11/2023 Encounters Encounter Location Date Provider Diagnosis [facility] [address] [facility] [address] [place] [phone] 08/11/2023 Miguel Saha Jr Gastroesophageal reflux disease, unspecified whether esophagitis present K21.9 ; Gas bloat syndrome K92.89 and Diarrhea, unspecified type R19.7 Assessments Encounter Date Diagnosis (ICD Code) Assessment Notes Treatment Notes Treatment Clinical Notes Section Notes 08/11/2023 Gas bloat syndrome (ICD-10 - K92.89) Mely appears to be doing well. He shows no signs of GI tract blood loss. He will continue omeprazole for his reflux. He is up-to-date on colon cancer screening. We discussed further evaluation with endoscopy and/or capsule endoscopy, but he does not wish to pursue this at this time. Followup will be in one year. He will continue to use Pepto-Bismol or other tjod-mkf-qftft er antacids and simethicone as needed. 08/11/2023 Gastroesophageal reflux disease, unspecified whether esophagitis present (ICD-10 - K21.9) Gas - flatulence material was printed Mely appears to be doing well. He shows no signs of GI tract blood loss. He will continue omeprazole for his reflux. He is up-to-date on colon cancer screening. We discussed further evaluation with endoscopy and/or capsule endoscopy, but he does not wish to pursue this at this time. Followup will be in one year. He will continue to use Pepto-Bismol or other jime-yts-hxgtt er antacids and simethicone as needed. 08/11/2023 Diarrhea, unspecified type (ICD-10 - R19.7) Mely appears to be doing well. He shows no signs of GI tract blood loss. He will continue omeprazole for his reflux. He is up-to-date on colon cancer screening. We discussed further evaluation with endoscopy and/or capsule endoscopy, but he does not wish to pursue this at this time. Followup will be in one year. He will continue to use Pepto-Bismol or other kwjs-rxg-ncjgo er antacids and simethicone as needed. Plan Of Treatment Pending Test Test Name Order Date CBC w/o DIFF 02/11/2022 OCCULT BLOOD STOOL X3 (OBS) 04/16/2022 STOOL WBC 02/11/2022 OVA & PARASITES (O&P) 02/11/2022 US ABD 04/08/2022 TSH REFLEX FREE T4 02/11/2022 CALPROTECTIN, STOOL 02/11/2022 GI PANEL 02/11/2022 Future Test Test Name Order Date COLONOSCOPY 08/14/2014 COLONOSCOPY 12/20/2019 Next Appt Details Provider Name:Miguel soto Jr, 08/09/2024 01:15:00 PM, [address] [place] [address], [address], [place], [address], Insurance Providers Payer Name Payer Address Payer Phone Subscriber Number Group Number Insured Name Patient Relationship to Insured Coverage Start Date Coverage End Date [employer] OF [employer] [address] [place] [address] [id number] MELY KAUR Self - patient is the insured [facility] [address] [place] [phone] [id number] MELY KAUR Self - patient is the insured Medical (General) History Medical History History ICD Code Colonoscopy 01/04/20, tubular adenoma, further screening is not recommended based on age. type II diabetes elevated Cholesterol pericarditis Afib hypertension Aortic stenosis Surgical History Surgery Date(Month/Year) tonsillectomy cataract-lens implants toe nail removal due to infection
--- OUTSIDE RECORDS SUMMARY | 2024-07-10 17:41 | XMS_ITS ---
[facility] Organization [facility] Address [address] [facility] [place] [address] Care Team Providers Care Feeder Catcher Tobacco Name Role Phone Anselmo Azevedo MD Primary Care Provider Unavail elisabeth BucioakerKelsie Unavailable [phone] Allergies Allergen (clinical drug ingredient) Drug/Non Drug [...] Polyneuropathy due to diabetes mellitus type I (605054252) Type 1 diabetes mellitus with diabetic polyneuropathy (E10.42) Active confirmed Vital Signs Height 5 ft 10 in in 03/21/2024 Weight 215 lbs 03/21/2024 BMI 30.85 kg/m2 03/21/2024 Blood pressure systolic 120 mm Hg 03/21/20 24 Blood pressure diastolic 70 mm Hg 024 Procedures Procedure Date Ordered Date Performed Result Body Sit e 12567-EUIPBWU NAIL, 6 OR MORE 03/21/2024 N/A 55560-MHNV SKIN LESIONS, OVER 4 03/21/2024 N/A Encounters Encounter Location Date Provider Diagnosis [facility] [place] [address] [place] [address] 03/21/2024 Kelsie Coughlin Type 2 diabetes mellitus with diabetic polyneuropathy E11.42 and Tinea unguium B35.1 Assessments Encounter Date Diagnosis (ICD Code) Assessment Notes Treatment Notes Treatment Clinical Notes Section Notes 03/21/2024 Type 2 diabetes mellitus with diabetic polyneuropathy (ICD-10 - E11.42) 03/21/2024 Tinea unguium (ICD-10 - B35.1) Plan Of Treatment Pending Test Test Name Order Date 20466-UKKQZYV NAIL, 6 OR MORE 03/21/2024 97633-RSYH SKIN LESIONS, OVER 4 03/21/20 Next Appt Details Follow Up: 3 Months, Reason: Provider Name:Kelsie zaragoza, 08/23/2024 01:15:00 PM, [address] [facility] [place], [address], Procedure Notes * Category Sub-Category Detail Notes [...] use of a nail nipper and/or dremel-type terrazzo grinder, to a more viable healthy nail plate or bed tissue 6-10. Silver nitrate used for any petechial bleeding as necessary. Definitive antifungal treatment options have been reviewed and discussed with the patient. The patient chooses, no pharmaceutical tx - 7[address]16 Keratoma Treatment Parring or Cutting o f Benign Hyperkeratotic Lesion(s) (-57) More than 4 Lesions - The Benign hyperkeratotic lesions, as described in exam, were pared, and/or cut utilizing a sterile 15 blade, tissue nippers, and/or dremel - 56991 Progress Notes * Thaddeus VELÁSQUEZ JrDOB:1944 (79 yo M)Acc No.[id number]:03/21/2024 Progress Note Patient:?Thaddeus VELÁSQUEZ Jr Provider:?Kelsie Coughlin DPM :1945???Age:79 Y???Sex:Male Tanner e:03/21/2024 Address:[address] [place], [place] [address] Pcp:Anselmo Azevedo MD Subjective: * Chief Complaints: [...] History:?cystoscopy cataract 2010 * Hospitalization/Major Diagno stic Procedure:?[facility] pt was light headed, sweaty. 03/2016[facility] ER for chest pain. 11/08/2017[facility] nose bleed 2019 * Family History:?Mother: dece [...] a symmetrical fashion, B/L.?Ophthalmology Referral: ?DIABETES EYE EXAM?Procedure Performed:?No ?Findings of Diabetic Eye Exam:?no retinopathy??? Assessment: * Assessment: 1.?Type 2 diabetes mellitus [...] use of a nail nipper and/or dremel-type terrazzo grinder, to a more viable healthy nail plate or bed tissue 6-10. Silver nitrate used for any petechial bleeding as necessary. Definitive antifungal treatment options have been reviewed and discussed with the patient. The patient chooses, no pharmaceutical tx - 25583.?Keratoma Treatment:?Parring or Cutting of Benign Hyperkeratotic Lesion(s)?(-57) More than 4 Lesions - The Benign hyperkeratotic lesions, as described in exam, were pared, and/or cut utilizing a sterile 15 blade, tissue nippers, and/or dremel - 10711.? * Procedure Codes:?46295 DEBRI DE NAIL, 6 OR MORE, Modifiers: XS 05821 TRIM SKIN LESIONS, OVER 4, Modifiers: XS * Follow Up:?3 Months * Images: * Sign off status: Completed true * Provider:?Kelsie Coughlin DPM Date:?1 05/21/2023 Generated for Alexandria brock/Sykler/Oswaldoitting on:?07/10/2024 07:56 AM EDT History and Physical Notes * HPI (History [...]
--- OUTSIDE RECORDS SUMMARY | 2024-07-10 17:41 | XMS_ITS ---
Author Organization [facility] Address [address] [place] [address] Care Team Providers Care Respiratory Scientist Name Role Phone Anselmo Azevedo MD Primary Care Provider Unavail Kelsie Yepez [phone] REASON FOR VISIT same day rs 06/22/24 Encounters Encounter Location Date Provider Diagnosis [address] [address] 06/22/2024 Kelsie Coughlin Plan Of Treatment Next Appt Details Provider Name:Kelsie zaragoza, 08/23/2024 01:15:00 PM, [address] [place] [address], [address], Progress Notes * DIDIER Thaddeus Hattie MortonDOB:1944 (79 yo M)Acc No.[id number]:06/22/2024 Patient:?Thaddeus VELÁSQUEZ Jr :1945???Age:79 Y???Sex:Male Address:[address] [place] [address] [facility] [place] [address] * true * Date:? Generated for Printi delmy/Skyler/eTransmitting on:?07/10/2024 07:56 AM EDT
--- OUTSIDE RECORDS SUMMARY | 2024-07-10 17:41 | XMS_ITS ---
Author Organization [facility] Address [address] [place] [address] Care Team Providers Care Cured Meats Supervisor Name Role Phone Roberto Carlos (RETIRED) Anselmo BANDA Primary Care Provid er Unavailable Miguel Saha Jr Unavailable Allergies Allergen (clinical drug ingredient) Drug/Non Drug Allergy documented on EMR Reaction Allergy Type Onset Date Status PredniSONE upset stomach Drug Allergy Ac tive REASON FOR VISIT Patient presents today for abd bloating Medications Medication SIG (Take, Route, Frequency, Duration) [...] Once a day for 30 day(s) Active Social History Alcohol Screen Question Answer Notes [...] Never (0 point) Points 0 Interpretation Negative Vital Signs Blood pressure systolic 00 mm Hg 08/11/19 24 Blood pressure diastolic 00 mm Hg 024 Height 70.5 in 08/11/2023 Weight 220 lbs 08/11/2023 BMI 31.12 kg/m2 08/11/2023 Encounters Encounter Location Date Provider Diagnosis [facility] [address] [place] [address] 08/11/2023 Miguel Saha Jr Gastroesophageal reflux disease, unspecified whether esophagitis present K21.9 ; Gas bloat syndrome K92.89 and Diarrhea, unspecified type R19.7 Assessments Encounter Date Diagnosis (ICD Code) Assessment Notes Treatment Notes Treatment Clinical Notes Section Notes 08/11/2023 Gastroesophageal reflux disease, unspecified whether esophagitis [...] will continue to use Pepto-Bismol or other xrak-kdj-ehjvu er antacids and simethicone as needed. 08/11/2023 Gas bloat syndrome (ICD-10 - K92.89) [...] will continue to use Pepto-Bismol or other dbar-wzx-mzcfl er antacids and simethicone as needed. 08/11/2023 [...] will continue to use Pepto-Bismol or other xhtl-lhl-hcdbx er antacids and simethicone as needed. Plan Of Treatment Treatment Notes Assessment Notes Gastroesophageal reflux dise ase, unspecified whether esophagitis present Gas - flatulence material was printed Next Appt Details Follow Up: 1 Year, Reason: Provider Name:Miguel soto Jr, 08/09/2024 01:15:00 PM, [address] [facility], [address], [place], [address], Progress Notes * MELY KAUR WDOB: [birth year] (78 yo M)Acc No.[id number]:08/11/2023 Progress Notes Patient:?MELY KAUR W Provider:?Miguel Saha MD :1945???Age:78 Y???Sex:Male Tanner e:08/11/2023 Address:[address] [place], [place] [id number] Pcp:Anselmo Azevedo, DO Subjective: * Chief Complaints: * ???1. Patient presents today for abd bloating. * HPI: ???New symptom(s):? Mely returns today for followup. He was last seen in July of last year for followup of gastroesophageal reflux disease, bloating, and diarrhea. He reports some loose stools intermittently. Bowel movements are generally occurring 3 times per day. Stools can be also intermittently loose, but no blood has been seen. ?Reflux symptoms have been good. He is taking Prilosec. He has no dysphagia, hematemesis, or melena. ?He was seen in May by Dr. Issa for followup on his normocytic normochromic anemia. He has been on iron. Iron saturations have been in the 8-9-12% range, with gradual increase. He has no melena or hematochezia. * Medical History:?Colonoscopy 01/04/20, tubular adenoma, further screening is not recommended based on age., type II diabetes, elevated Cholesterol, Pericarditis, Afib, Hypertension, Aortic stenosis. * Surgical History:?tonsillect aisha , cataract-lens implants , toe nail removal due to infection . * Family History:?Father: dece ased.?Mother: .?Siblings: alive, sister , diagnosed with Colon cancer.? * Social History:?Tobacco Use:?Tobacco Use/Smoking?Are you a: nonsmoker.?Drugs/Alcohol:?Alcohol Screen?Did you have a drink containing alcohol in the past year??Yes,?How often did you have a drink containing alcohol in the past year??Never (0 point),?How many drinks did you have on a typical day when you were drinking in the past year??1 or 2 drinks (0 point),?How often did you have 6 or more drinks on one occasion in the past year??Never (0 point),?Points?0,?Interpretation?Negative.?Miscellaneous:?Marital status: . Occupation: retired. * Medications:?Taking Metamuci l - Wafer as directed Orally , Taking Prilosec 20 MG Capsule Delayed Release 2 capsule Orally twice a day, Taking Januvia 100 MG Tablet Orally , Taking amLODIPine Besylate 5 MG Tablet 1 tablet Orally Once a day, Taking Xarelto 20 MG Tablet 1 tablet with food Orally Once a day, Taking Atorvastatin Calcium 40 MG Tablet 1 tablet Orally Once a day, Taking Multivitamin Adult - Tablet as directed Orally , Taking Gabapentin 300 MG Capsule Oral , Taking FeroSul 325 (65 Fe) MG Tablet Oral , Discontinued Furosemide 20 MG Tablet 1 tablet Orally Once a day, Medication List reviewed and reconciled with the patient * Allergies:?PredniSONE: upset stomach. Objective: * Vitals:?Wt: 220 lbs, Ht: 70. 5 in, BMI:31.12 Index, BP: 00/00 mm Hg. * Examination: ???General Examination: ???On examination today, he appears well. Skin is anicteric. Lungs are clear. Heart shows regular rate and rhythm. Abdomen soft without focal mass or tenderness. Assessment: * Assessment: 1.?Gastroesophageal reflux d isease, unspecified whether esophagitis present - K21.9 (Primary)?2.?Gas bloat syndrome - K92.89?3.?Diarrhea, unspecified type - R19.7? Mely appears to be doing w ell. He shows no signs of GI tract blood loss. He will continue omeprazole for his reflux. He is up-to-date on colon cancer screening. We discussed further evaluation with endoscopy and/or capsule endoscopy, but he does not wish to pursue this at this time. Followup will be in one year. He will continue to use Pepto-Bismol or other kvls-kdj-gbamsph antacids and simethicone as needed. Plan: * Treatment: * Procedure Codes:?G9903 Pt sc rn tbco id as non user, G9744 PATIENT NOT ELIG D/T ACTIVE DX HTN * Preventive Medicine:? ??Counseling:?Care goal follow-up plan:?Above Normal BMI Follow-up?Giving encouragement to exercise,?BMI management provided?Yes.? * Follow Up:?1 Year * * Sign off status: Completed true * Provider:?Miguel Saha MD Date:?0 08/11/2023 Generated for Printi delmy/Skyler/eTransmitting on:?07/10/2024 07:56 AM EDT History and Physical Notes * HPI (History of Present Illness) Category Sub-Category Detail Notes Category Not es New symptom(s) Mely returns today for followup. He was last seen in July of last year for followup of gastroesophageal reflux disease, bloating, and diarrhea. He reports some loose stools intermittently. Bowel movements are generally occurring 3 times per day. Stools can be also intermittently loose, but no blood has been seen. Reflux symptoms have been good. He is taking Prilosec. He has no dysphagia, hematemesis, or melena. He was seen in May by Dr. Issa for followup on his normocytic normochromic anemia. He has been on iron. Iron saturations have been in the 8-9-12% range, with gradual increase. He has no melena or hematochezia. Examination Category Sub-Category Detail Notes Category Not es General Examination On exami nation today, he appears well. Skin is anicteric. Lungs are clear. Heart shows regular rate and rhythm. Abdomen soft without focal mass or tenderness.
--- OUTSIDE RECORDS SUMMARY | 2024-07-10 17:41 | XMS_ITS | Patient Health Record ---
[facility] Address [address] [facility] [place] [address] Care Team Providers Care Assistant Professor Of Education Name Role Phone Anselmo Azevedo MD Primary Care Provider Unavail able Kelsie Coughlin Unavailable [phone] Helio Guillory Unavailable [phone] Reed Burt Unavailable [phone] Allergies Allergen (clinical drug ingredient) Drug/Non Drug [...] Polyneuropathy due to diabetes mellitus type I (859449980) Type 1 diabetes mellitus with diabetic polyneuropathy (E10.42) Active confirmed Problem Bilateral atherosclerosis of arteries of lower limbs (disorder) (97037610975385802 ) Unspecified atherosclerosis of [place] arteries of extremities, bilateral legs (I70.203) Active confirmed Problem Chronic ulcer of foot (893056282) Non-pressure chronic ulcer of other part of left foot with fat layer exposed (L97.522) Active confirmed Problem Polyneuropathy due to type 2 diabetes mellitus (704141602) Type 2 diabetes mellitus with diabetic polyneuropathy (E11.42) Active confirmed Problem Acquired hammer toe of right foot (0790563309219539) Other hammer toe(s) (acquired), right foot (M20.41) Active confirmed Problem Acquired hammer toe of left foot (5988615581424473) Other hammer toe(s) (acquired), left foot (M20.42) Active confirmed Vital Signs Blood pressure diastolic 70 mm Hg 03/21/2024 Height 5 ft 10 in in 03/21/2024 Blood pressure systolic 120 mm Hg 03/21/2024 Weight 215 lbs 03/21/2024 BMI 30.85 kg/m2 03/21/2024 Procedures Procedure Date Ordered Date Performed Result Body Sit e 36849-VHLRRDV NAIL, 6 OR MORE 03/21/2024 N/A 32217-GKUQ SKIN LESIONS, OVER 4 03/21/2024 N/A Encounters Encounter Location Date Provider Diagnosis [facility] [address] [address] 09/15/2023 Helio Guillory Tinea unguium B35.1 ; Pain in right toe(s) M79.674 ; Pain in left toe(s) M79.675 ; Type 2 diabetes mellitus with diabetic polyneuropathy E11.42 ; Other hammer toe(s) (acquired), left foot M20.42 ; Other hammer toe(s) (acquired), right foot M20.41 ; Unspecified atherosclerosis of [place] arteries of extremities, bilateral legs I70.203 and Localized edema R60.[address] [facility] [address] 12/19/2023 Helio Giullory Tinea unguium B35.1 ; Pain in right toe(s) M79.674 ; Pain in left toe(s) M79.675 ; Type 2 diabetes mellitus with diabetic polyneuropathy E11.42 ; Other hammer toe(s) (acquired), left foot M20.42 ; Other hammer toe(s) (acquired), right foot M20.41 ; Unspecified atherosclerosis of [place] arteries of extremities, bilateral legs I70.203 and Localized edema R60.[address] [address] 03/21/2024 Kelsie Coughlin Type 2 diabetes mellitus with diabetic polyneuropathy E11.42 and Tinea unguium B35.[address] [address] 06/22/2024 Kelsie Coughlin Assessments Encounter Date Diagnosis [...] (ICD-10 - M20.41) 09/15/2023 Unspecified atherosclerosis of [place] arteries of extremities, bilateral legs (ICD-10 - I70.203) 09/15/2023 Localized edema (ICD-10 - R60.0) 12/19/2023 Unspecified atherosclerosis of [place] arteries of extremities, bilateral legs (ICD-10 - I70.203) 12/19/2023 Localized edema (ICD-10 - R60.0) Plan Of Treatment Pending Test Test Name Order Date X ray : Ankle, right 2V 05/13/2014 *Uric Acid, Serum 05/13/2014 *CBC With Differential/Platelet 05/13/19 15 *Sedimentation Rate-Westergren 5 X ray : Foot, right 3V 02/06/2014 X ray : Foot, right 3V 05/13/2014 X ray : Foot, right 3V 01/17/2023 50412-QALHWLJ NAIL, 6 OR MORE 01/16/2018 12369-SEMCTTJ NAIL, 6 OR MORE 03/21/2024 52238-SPSPVCJ NAIL, 6 OR MORE 04/13/2017 05611-OOFCDWL NAIL, 6 OR MORE 07/18/2017 39807-ZPQFROD NAIL, 6 OR MORE 10/17/2017 11310-JKUCKRO NAIL, 6 OR MORE 04/17/2018 11275-IYARTCI NAIL, 1-5 07/12/2016 05129-VOUQLSN NAIL, 1-5 10/13/2016 81964-NVOYRPJ NAIL, 1-5 01/12/2017 15049-TVBMXRX NAIL, 1-5 06/30/2015 53350-QETPKUQ NAIL, 1-5 10/01/2015 09617-BXVDEEN NAIL, 1-5 01/08/2016 09380-DARQJJC NAIL, 1-5 04/12/2016 52318-IOKORLA NAIL, 1-5 10/10/2014 02660-FJPCFFN NAIL, 1-5 02/12/2015 28885- Debride <25 sq cm 02/23/2023 84327-OTNXCPX SKIN/TISSUE 03/16/2023 56649-MOZDEMC SKIN/TISSUE 01/10/2023 94324-JZYJKHK SKIN/TISSUE 05/05/2023 03094- I&D ABSCESS-COMPLICATED,MULTI 34834-OJGD SKIN LESIONS, OVER 4 07/19/19 18 79142-ISVY SKIN LESIONS, OVER 4 04/17/20 18 90104-UVSG SKIN LESIONS, OVER 4 03/21/20 24 52094-SYBX SKIN LESIONS, OVER 4 07/18/19 19 45496-KUNL SKIN LESIONS, OVER 4 10/17/19 19 46201-KJRE SKIN LESIONS, OVER 4 01/18/20 19 43919-TMHL SKIN LESIONS, OVER 4 04/18/20 19 19207-BXIY SKIN LESIONS, OVER 4 07/05/19 20 24915-HYRZ SKIN LESIONS, OVER 4 09/27/19 20 68239-GJGT SKIN LESIONS, OVER 4 12/26/19 20 48475-UMHU SKIN LESIONS, OVER 4 03/19/20 20 88162-DGKT SKIN LESIONS, OVER 4 06/23/19 21 09559-CBRJ SKIN LESIONS, OVER 4 09/23/19 21 01936-LUGD SKIN LESIONS, OVER 4 12/26/19 21 69130-WLNN SKIN LESIONS, OVER 4 03/30/20 21 99049-NJNP SKIN LESIONS, OVER 4 07/02/19 22 51727-NGSI SKIN LESIONS, OVER 4 01/17/20 18 37626-TTKQ SKIN LESIONS, OVER 4 10/18/19 18 74539-XEFB SKIN LESIONS, OVER 4 01/13/20 17 21269-FJVO SKIN LESIONS, OVER 4 04/13/20 17 61274-OKML SKIN LESIONS, OVER 4 02/13/20 15 01426-QKTD SKIN LESIONS, OVER 4 06/12/19 15 88218-HVKC SKIN LESIONS, OVER 4 10/11/19 15 81365-SIAO SKIN LESIONS, OVER 4 04/17/20 14 30700-KJLX SKIN LESIONS, OVER 4 04/12/20 16 88751-KDXA SKIN LESIONS, OVER 4 01/08/20 16 86649-NRTH SKIN LESIONS, OVER 4 10/01/19 16 33161-QANR SKIN LESIONS, OVER 4 06/30/19 16 49268-RWEF SKIN LESIONS, OVER 4 07/13/19 17 11289-QMHN SKIN LESIONS, OVER 4 10/14/19 17 55520-NWFO SKIN LESIONS, 2 TO 4 02/07/20 14 46018-WQUU NAIL(S) 02/06/2014 86016-DVFI NAIL(S) 04/17/2014 64770-VFME NAIL(S) 10/10/2014 05076-CRXS NAIL(S) 06/12/2014 39967-ZIAO NAIL(S) 02/12/2015 96159-PHLA NAIL(S) 07/12/2016 36315-TFLQ NAIL(S) 01/12/2017 86218-ZVZW NAIL(S) 10/13/2016 08611-ORAL NAIL(S) 06/30/2015 27766-LDBK NAIL(S) 10/01/2015 15035-PYCV NAIL(S) 01/08/2016 72940-LFPA NAIL(S) 04/12/2016 12373-WUFTZDCF OF HEMATOMA/FLUID 018 22778-TWTOGTVX OF HEMATOMA/FLUID 023 Next Appt Details Provider Name:Kelsie zaragoza, 08/23/2024 01:15:00 PM, [address] [place] [address], [place], [address], Insurance Providers Payer Name Payer Address Payer Phone Subscriber Number Group Number Insured Name Patient Relationship to Insured Coverage Start Date Coverage End Date Medicare National [employer] [address] [place] [address] [id number] Thaddeus Velásquez Self - patient is the insured [address] [place] [address] [address] [place] [address] [id number] Thaddeus Velásquez Self - patient is the insured Medical (General) History Medical History History ICD Code Arthritis Back,Hip,and Knee pain Broken bones Cataracts Chicken pox Measles Mumps type II diabetes Neuropathy Sciatica pericarditis Surgical History Surgery Date(Month/Year) cystoscopy cataract 2010 Hospital[place] History Reason Date[place] [facility] [place] [facility] [place]. [place] [facility] [place] light headed, sweaty. 03/2016
== END 2024-07-10 15:29 | disposition home or self-care (01) ==
LOC: HO.HMCSH 14:26
PROVIDERS: PCP Internal Medicine; Visit Provider Physician Assistant Medical
DX: Z09 Encounter for follow-up examination after completed treatment for conditions other than malignant neoplasm (principal); I35.0 Nonrheumatic aortic (valve) stenosis; I48.0 Paroxysmal atrial fibrillation; R06.09 Other forms of dyspnea; G47.00 Insomnia, unspecified; R05.9 Cough, unspecified

== ENCOUNTER → 2024-07-10 16:20 | Outpatient (BNV) | payer MEDICARE, OTHER, SELFPAY | PROVIDERS: PCP Internal Medicine; Visit Provider Radiology Diagnostic Radiology | DX: R05.9 Cough, unspecified (principal); Z95.0 Presence of cardiac pacemaker; Z95.2 Presence of prosthetic heart valve | CPT/HCPCS: 71046 ==

== ENCOUNTER → 2024-07-23 10:53 | Outpatient (REF) | payer MEDICARE, OTHER, SELFPAY ==
--- NOTE | 2024-07-23 10:55 | CA_ITS ---
Transthoracic Echocardiogram Patient (Last, First, Middle): , Thaddeus, W Gender: Male Date of : 1945 Age: 79 Procedure Date: 07/23/2024 Procedure Type: Transthoracic Echocardiogram Location: OP Height: 175.26 cm Weight: 95.26 kg BSA: 2.11 m2 Heart Rate: bpm BP: 128 / 84 mmHg Head Automatic Sawyer: Referring MD: Bolivar Helton MD [employer]: Bolivar Helton MD Symptoms: Z95.2 - Presence of prosthetic heart valve TAVR Study Quality: Adequate ECG Rhythm: Sinus with V paced Conclusions: - 1. Normal LV ejection fraction 55-60% with mild LVH with pseudonormal filling pattern 2. Mildly dilated left atrium 3. Normally functioning bioprosthetic aortic valve with mean gradient of 8 mm Hg with mild aortic regurgitation noted possibly periprosthetic 4. Normal RV systolic pressure 5. Mildly dilated ascending aorta at 3.7 cm Findings Left Ventricle Normal left ventricular size and systolic function. There is mildly increased left ventricular wall thickness. The visually estimated ejection fraction is between 55-60%. There is paradoxical septal motion consistent with a right ventricular pacemaker. Spectral Doppler is indicative of a pseudonormal filling pattern. E/E prime ratio is between 8 and 15 consistent with indeterminate filling pressures. Right Ventricle Normal right ventricular cavity size and systolic function. There is a pacemaker wire seen in the right ventricle. Atria The left atrium is mildly dilated. Interatrial shunt cannot be excluded. The right atrium is likely dilated. A pacemaker wire is identified in the right atrium. Aortic Valve A bioprosthetic aortic valve is present. The prosthetic aortic valve appears to be functioning normally. The mean gradient is 8 mmHg. There is mild aortic valve regurgitation. Mitral Valve The mitral valve was not well visualized. There is mild mitral annular calcification. There is trace mitral valve regurgitation. There is no mitral valve stenosis. Pulmonic Valve The pulmonic valve was not well visualized. Tricuspid Valve Likely normal tricuspid valve structure and function. There is mild tricuspid valve regurgitation. The right ventricular systolic pressure is normal. The right ventricular systolic pressure is 30 mmHg. Normal right atrial pressure. Great Vessels The pulmonary artery was not well visualized. There is mild dilatation of the ascending aorta measuring 3.70 cm. Venous The inferior vena cava is normal in size and collapses greater than 50% with inspiration. Pericardium/Pleural There is no evidence of pericardial effusion. Measurements 2D Linear Measurements IVSd: 1.26 0.6-0.9/0.6-1.0 cm LVIDd: 4.43 3.9-5.3/4.2-5.9 cm LVIDd Index: 2.10 2.4-3.2/2.2-3.1 cm/m2 LVIDs: 3.05 2.0-3.6 cm LVPWd: 1.29 0.7-1.1 cm Ao Root: 3.60 2.1-3.5 cm LA Diam: 4.30 2.7-3.8/3.0-4.0 cm LAIDs Index: 2.04 1.5-2.3 cm/m2 LV Mass: 263.26 67-162/88-224 g LV Mass Index: 124.77 43-95/49-115 g/m2 LVOT Diam: 2.10 3.0+(-)1.3 cm Mitral Valve MV VTI: 0.34 MV Pk Calvin: 1.09 MV Mn Calvin: 0.66 MV Pk Grad: 5.00 MV Mn Grad: 2.00 MV Pk E: 0.98 MV PK A: 0.86 MV Decel Time: 173.00 E/A: 1.10 E'Lateral: 6.96 E'Medial: 7.62 E/E' Med: 12.80 E/E' Lat: 14.00 PHT: 51.00 MVA PHT: 4.31 MVA Continuity: 2.50 Decel Galax: 5.64 Aortic Valve AoV Pk Calvin: 2.04 AoV Mn Calvin: 1.33 AoV VTI: 0.45 AoV Pk Grad: 17.00 Aov Mn Grad: 8.00 THANIA Cont.VTI: 1.88 LVOT LVOT Pk Calvin: 1.04 LVOT Mn Calvin: 0.70 LVOT VTI: 0.24 LVOT Pk Grad: 4.00 LVOT Mn Grad: 3.00 LVOT Diam: 2.10 LVOT Area: 3.46 Diastolic Function MV Pk E: 0.98 MV Pk A: 0.86 E/A: 1.10 E'Medial: 7.62 E/E' Med: 12.80 E' Laterial: 6.96 E/E' Lat: 14.00 Right Ventricle TAPSE (mm): 21.00 TVS' Calvin: 10.00 Tricuspid Valve TR Pk Calvin: 1.95 TR Pk Grad: 15.00 RA Press: 15.00 RVSP: 30.00 Great Vessels Aorta Ao Root-2D: 3.60 2.0-3.7 cm Ao Asc: 3.70 2.1-3.4 cm Pulmonary Valve PV Pk Calvin: 0.78 Peak PV Grad: 2.00 Updated in Other Vendor System with Status of Final Bolivar Helton MD electronically signed on 07/23/2024 4:33:33 PM with status of Final
== END ==
LOC: HO.CARD 10:53
PROVIDERS: PCP Internal Medicine; Visit Provider Internal Medicine Cardiovascular Disease
DX: Z95.2 Presence of prosthetic heart valve (principal)
CPT/HCPCS: 93306

== ENCOUNTER → 2024-07-23 10:55 | Outpatient (BNV) | payer MEDICARE, OTHER, SELFPAY | PROVIDERS: PCP Internal Medicine; Visit Provider Internal Medicine Cardiovascular Disease | DX: I51.7 Cardiomegaly (principal); Z95.4 Presence of other heart-valve replacement; I34.81 Nonrheumatic mitral (valve) annulus calcification; I36.1 Nonrheumatic tricuspid (valve) insufficiency | CPT/HCPCS: 93306 ==

== ENCOUNTER 2024-07-27 21:17 | Observation (INO) | payer MEDICARE, OTHER, SELFPAY ==
--- NOTE | 2024-07-27 | ECG_ITS ---
Test Reason : CARDIAC HISTORY Blood Pressure : */* mmHG Vent. Rate : 91 BPM Atrial Rate : 91 BPM P-R Int : 242 ms QRS Dur : 114 ms QT Int : 382 ms P-R-T Axes : 41 63 10 degrees QTcB Int : 469 ms Sinus rhythm with 1st degree A-V block Low voltage QRS Incomplete right bundle branch block Nonspecific ST and T wave abnormality Prolonged QT Abnormal ECG When compared with ECG of 06-Apr-2022 03:40, Incomplete right bundle branch block is now Present Referred By: Generic ED Physician Electronically Signed By: ALEX ELIZABETH MD
--- NOTE | ~2024-07-27 | CT_ITS ---
CLINICAL HISTORY: Productive dysphagia at 17:00 , resolved, CTA HEAD WITH CONTRAST AND 3D POST PROCESSING CTA NECK WITH CONTRAST AND 3D POST PROCESSING COMPARISON: CT brain 07/27/2024. FINDINGS: CTA NECK: Sagittal and coronal MIP 3D reconstruction images were performed.There is no high-grade stenosis, occlusion, dissection, aneurysm, or vascular malformation. There is no active bleeding. Mild calcific plaque is noted within the proximal and distal vertebral artery. Calcific plaque is noted in the right carotid bulb. Calcific plaque causes mild stenosis of the proximal right external carotid artery. The right internal carotid artery is unremarkable. On the left side, calcific plaque is noted in the left carotid bulb and proximal left internal/external carotid arteries, without significant stenosis. Common carotid arteries, internal carotid arteries, external carotid arteries, and vertebral arteries are otherwise unremarkable.There is dextrocurvature and multilevel degenerative change involving the cervical spine. Subcentimeter calcified granuloma is noted within the left upper lobe. Mild nonspecific ground-glass changes are noted within the upper lungs. A left-sided pacer device is partially imaged. CTA HEAD: Sagittal and coronal MIP 3D reconstruction images were performed.There is no high-grade stenosis, occlusion, dissection, aneurysm, or vascular malformation. There is no active bleeding. Calcifications are noted in the carotid siphons. Terminal internal carotid arteries, middle cerebral arteries, anterior cerebral arteries, basilar artery, and posterior cerebral arteries are otherwise unremarkable. No evidence of dural venous sinus thrombosis. IMPRESSION: 1. CTA neck and CTA head demonstrate no evidence of a high-grade stenosis, occlusion, dissection, aneurysm, or vascular malformation. 2. Additional findings are detailed above. This document has been electronically signed by: Juan Gongora M.D. on 07/28/2024 00:39:03
--- NOTE | ~2024-07-27 | CT_ITS ---
CLINICAL HISTORY: Productive dysphagia at 17:00 , resolved CT BRAIN WITHOUT CONTRAST COMPARISON: None. FINDINGS: There is mild parenchymal atrophy. There is no evidence of an acute infarct or intraparenchymal hemorrhage. Calcifications are noted in the lentiform nuclei. Patchy areas of low attenuation are noted in the subcortical and periventricular regions of the supratentorial brain which are nonspecific but most likely represent chronic small vessel ischemic disease. There is no mass effect, midline shift, or extra-axial blood. The ventricles are normal in size without evidence of hydrocephalus. The bone windows are unremarkable. IMPRESSION: 1. No acute disease in the brain. This document has been electronically signed by: Juan Gongora M.D. on 07/27/2024 23:42:53
[2024-07-27 21:25] VITALS: BP 158/90; BP 169/79; PULSE 90; PULSE 96; RESP 16; TEMP 36.6; O2SAT 98; BMI 31.0
[2024-07-27 21:42] LABS: MANUAL DIFF FLAG NO
[2024-07-27 21:47] LABS: Basophils Absolute Auto 0.1 X10*3/uL (0.0-0.2); Basophils Percent Auto 0.6 % (0-2); Eosinophils Absolute Auto 0.2 X10*3/uL (0.0-0.4); Eosinophils Percent Auto 2.3 % (0-4); Hemoglobin 11.4 g/dl (14.0-18.0); Imm Gran Abs Auto 0.02 X10*3/uL (0.00-0.03); Imm Gran Pct Auto 0.2 % (0.0-0.4); Lymphocytes Absolute Auto 1.7 X10*3/uL (1.2-4.9); Lymphocytes Percent Auto 20.3 % (20-40); Mean Corpuscular HGB Conc 33.5 g/dl (31.0-36.0); Mean Corpuscular Hemoglobin 30.5 pg (27.0-33.0); Mean Corpuscular Volume 90.9 fL (80.0-98.0); Monocytes Percent Auto 11.4 % (2-11); Neutrophils Absolute Auto 5.5 x10*3/uL (2.0-8.3); Neutrophils Percent Auto 65.2 % (45-73); Platelet Count 122 X10*3/uL (160-400); Red Blood Count 3.74 X10*6/uL (4.60-5.80); Red Cell Distribution Width 12.9 % (11.0-16.0); White Blood Count 8.4 X10*3/uL (4.8-10.8)
--- NOTE | 2024-07-27 21:48 | ED.GENADULT ---
HPI - General Adult General Chief complaint: General Medical Stated complaint: HEART SURGERY JULY 05, NOT MAKING SENSE PER EMS Time Seen by Provider: 07/27/24 21:37 Source: patient Mode of arrival: EMS Limitations: no limitations History of Present Illness ED Provider: Dr. David Boswell HPI narrative: 79-year-old male history of pacemaker, hyperlipidemia, hypertension, diabetes mellitus, paroxysmal atrial fibrillation, who presents emergency department for evaluation of difficulty speaking that occurred around 17:00 hours. The patient states that he was trying to talk to his but she could not understand him but he was able to understand her speech. He states the symptoms lasted for proximally 10-15 minutes. He did have a mild headache associated with the symptoms. He states this is 1st episode of having difficulty speaking. The patient had a TAVR done at [facility] on 07/05/2024 for aortic stenosis. Patient states that he has been on Xarelto prior to the TAVR and continued on this was medication after the procedure. When he developed difficulty with speech, he took an extra dose, two Xarelto instead of 1 and 650 mg of aspirin. At the time of my evaluation in the emergency department, he states that he was back to his baseline. He denies having difficulty with word finding or talking. He denies headache, nausea or vomiting. He denies numbness or weakness. Related Data Home Medications ?Medication ?Instructions ?Recorded ?Confirmed atorvastatin 40 mg tablet 40 mg PO DAILY 09/02/20 07/10/24 sitagliptin phosphate 100 mg tablet 100 mg PO DAILY 03/17/21 07/10/24 omeprazole magnesium 2.5 mg oral 10 mg PO DAILY 09/06/23 07/10/24 suspension,delayed release (Prilosec) iron PO 03/13/24 07/10/24 acetaminophen 325 mg tablet 650 mg PO Q8H PRN 07/10/24 07/10/24 cholecalciferol (vitamin D3) 25 50 mcg PO DAILY 07/10/24 07/10/24 mcg/drop (1,000 unit/drop) oral drops Previous Rx's ?Medication ?Instructions ?Recorded rivaroxaban 20 mg tablet (Xarelto) 20 mg PO DAILY #90 tabs 03/23/24 gabapentin 300 mg capsule 300 mg PO BID #180 caps 06/06/24 albuterol sulfate 90 mcg/actuation 1 inh inhalation QID PRN shortness 07/10/24 aerosol inhaler of breath or wheezing #8.5 grams cefpodoxime 200 mg tablet 200 mg PO BID pna 10 days #20 tabs 07/10/24 prednisone 20 mg tablet 40 mg (2 x 20 mg) PO DAILY 3 days 07/10/24 #6 tabs trazodone 50 mg tablet 50 mg PO BEDTIME PRN sleep #90 tabs 07/10/24 white petrolatum-mineral oil 83 1 appl ophthalmic (eye) BID-QID 07/10/24 %-15 % eye ointment (Artificial PRN dry eye(s) #3.5 grams Eye Lubricant) Allergies Allergy/AdvReac Type Severity Reaction Status Date / Time prednisone Allergy Unknown GI Verified 07/27/24 21:30 Review of Systems Review of Systems: Yes all other systems are reviewed and are negative [facility] Past Medical History [facility] Narrative: Social history: He denies tobacco use. He drinks 2-3 beers per week. He denies drug use. Medical History (Updated 07/28/24 @ 01:22 by David Boswell MD) Insomnia Hospital discharge follow-up History of echocardiogram Hypertriglyceridemia Tubular adenoma Dyspnea on exertion Obesity (BMI 30-39.9) Right shoulder injury Right shoulder pain Cough Raynaud disease Edema Aortic stenosis Hyperlipemia HTN (hypertension) Type 2 diabetes mellitus PAF (paroxysmal atrial fibrillation) Surgical History History of colonoscopy (~01/04/20) History of cardiac cath History of cataract surgery Family History Family History Father No problems noted. Mother No problems noted. Paternal Grandfather CVD (cardiovascular disease) Paternal Grandmother No problems noted. Maternal Grandfather CVD (cardiovascular disease) Maternal Grandmother No problems noted. 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 Cognitive needs: Yes (cane) Hearing needs: Yes (b/l hearing aids) Vision needs: Yes (reading glasses) Physical Exam ED Vital Signs: Vital Signs - 24 hr 07/27/24 21:25 07/27/24 23:45 07/28/24 01:10 Temperature 97.9 F 98.3 F Pulse Rate 90 88 86 Respiratory Rate 16 16 14 Blood Pressure 169/79 H 129/60 118/48 L Pulse Oximetry 98 96 97 Oxygen Delivery Method Room Air Room Air Room Air BMI result Body Mass Index 31.0 Patient was vital signs revealed an elevated blood pressure of 169/79 otherwise unremarkable Exam: General: Awake, alert in no distress Head: Normocephalic, atraumatic EENT: PERRL, Lids normal, sclera normal, conjunctiva normal, nose normal , ears normal, throat without erythema or exudates Neck: Supple, no adenopathy Lung: breath sounds symmetric, no wheezing, rales or rhonchi Chest: symmetric movement, nontender Heart: regular rate and rhythm, normal S1, S2 no murmurs or rubs Abdomen: soft, non-tender, nondistended, normal bowel sounds Back: no vertebral tenderness, no CVAT Extremities: no deformities, moves all extremities symmetrically Neuro: Awake, alert, oriented, normal speech, cranial nerves intact, moves all extremities symmetrically Psych: Pleasant, cooperative NIH Stroke Scale Internal: Initial- Upon Arrival Level of Consciousness: Alert Level of Consciousness Questions: Answers both questions correctly Level of Consciousness Commands: Performs both tasks correctly Best Gaze: Normal Visual: No visual loss Facial Palsy: Normal Motor Arm (Right): No drift Motor Arm (Left): No drift Motor Leg (Right): No drift Motor Leg (Left): No drift Limb Ataxia: Absent Sensory: Normal Best Language: No aphasia Dysarthia: Normal Extinction and Inattention: No abnormality Score: 0 Medical Decision Making Medical Decision Making MDM Narrative: 79-year-old male history of pacemaker, hyperlipidemia, hypertension, diabetes mellitus, paroxysmal atrial fibrillation, who presents emergency department for evaluation of difficulty speaking that occurred around 17:00 hours. The patient states that he was trying to talk to his but she could not understand him but he was able to understand her speech. He states the symptoms lasted for proximally 10-15 minutes. He did have a mild headache associated with the symptoms. He states this is 1st episode of having difficulty speaking. The patient had a TAVR done at [facility] on 07/05/2024 for aortic stenosis. Patient states that he has been on Xarelto prior to the TAVR and continued on this was medication after the procedure. When he developed difficulty with speech, he took an extra dose, two Xarelto instead of 1 and 650 mg of aspirin. At the time of my evaluation in the emergency department, he states that he was back to his baseline. He denies having difficulty with word finding or talking. He denies headache, nausea or vomiting. He denies numbness or weakness. Vital signs revealed an elevated blood pressure. Physical examination was unremarkable. NIH stroke scale was 0. Differential diagnosis: Includes but is not limited to stroke, TIA, intracranial bleed, hypoglycemia, electrolyte abnormalities, anemia Course: 01:10 My independent interpretation patient's laboratory evaluation is as follows: Mild anemia with an H&H of 12 and 36.3. Chronic thrombocytopenia 89,000. Elevated PT and INR 1.3 and 14.9. Elevated BUN [address] scan of the patient's head revealed no acute stroke. CT angiogram head and neck revealed no significant stenosis retrievable clot. Patient's symptoms are concerning for TIA versus possible small stroke. The patient was on Xarelto in his not a thrombolytics candidate. The patient does have a pacemaker and can not get an MRI however this is the patient's 1st TIA/stroke-like symptoms therefore I did discuss admission with the covering hospitalist the patient will be admitted for further evaluation. Admission/Observation Consideration of admission/observation: Escalation of care including admission/observation considered (Yes) Lab Data MDM Lab Attestation statement: I reviewed the patient's lab results. 07/27/24 21:35 07/27/24 21:34 Labs: Lab Results 07/27/24 07/27/24 Range/Units 21:34 21:35 WBC 8.4 (4.8-10.8) X10*3/uL RBC 3.74 L (4.60-5.80) X10*6/uL Hgb 11.4 L (14.0-18.0) g/dl Hct 34.0 L (42.0-52.0) % MCV 90.9 (80.0-98.0) fL MCH 30.5 (27.0-33.0) pg MCHC 33.5 (31.0-36.0) g/dl RDW 12.9 (11.0-16.0) % Plt Count 122 L D (160-400) X10*3/uL MPV 10.0 (9.4-12.4) fL Immature Gran % (Auto) 0.2 (0.0-0.4) % Neut % (Auto) 65.2 (45-73) % Lymph % (Auto) 20.3 (20-40) % [place] % (Auto) 11.4 H (2-11) % Eos % (Auto) 2.3 (0-4) % Baso % (Auto) 0.6 (0-2) % Lymph # (Auto) 1.7 (1.2-4.9) X10*3/uL [place] # (Auto) 1.0 (0.1-1.2) X10*3/uL Eos # (Auto) 0.2 (0.0-0.4) X10*3/uL Baso # (Auto) 0.1 (0.0-0.2) X10*3/uL Abs Immat Gran (auto) 0.02 (0.00-0.03) X10*3/uL Absolute Neuts (auto) 5.5 (2.0-8.3) x10*3/uL Absolute Nucleated RBC 0.000 (0.0-0.012) X10*3/uL Nucleated RBC % (auto) 0.0 (0.0-0.2) /100WBC PT 35.7 H D (10.9-12.4) SEC INR 3.1 H (0.9-1.1) APTT 51.1 H (26.0-36.8) SEC Sodium 135 (135-145) mmol/L Potassium 5.1 D (3.3-5.1) mmol/L Chloride 104 (96-108) mmol/L Carbon Dioxide 22 (22-29) mmol/L Anion Gap 14 (12-20) BUN 19 H (9-16) mg/dL Creatinine 1.14 (0.5-1.4) mg/dL Estim Creat Clear Calc 59.8 Estimated GFR > 60 Random Glucose 175 H (60-115) mg/dL Calcium 9.3 (8.4-10.2) mg/dL Total Bilirubin 0.4 (0.0-1.0) mg/dL AST 38 H (5-37) U/L ALT 15 (0-40) U/L Alkaline Phosphatase 131 H (39-117) U/L Troponin I High Sens 16.7 D (<3.5-35.0) ng/L Total Protein 7.4 (6.5-8.0) g/dL Albumin 3.9 (3.5-5.0) g/dL Independent Interpretation I performed an independent interpretation of an: EKG Interpretation: My independent interpretation patient's 12 EKG done on 07/27/2024 at 12:29 hours is as follows: Sinus rhythm with first-degree AV block, rate of 91, prolonged [place] interval 242 milliseconds, prolonged QRS duration of 114 milliseconds, normal QTC interval, incomplete right bundle-branch block, no ST segment elevation, no ST segment depression, inverted T-waves in 3, V1 and V2. There is an EKG dated 04/06/2023 at 03:40 hours, 1st to be AV block is old, incomplete right bundle-branch block is new, T-wave inversions are new. Radiology Impression Discussion of test interpretation with radiology: I have reviewed the radiologist's reading. Radiologist Impression: CT BRAIN WITHOUT CONTRAST COMPARISON: None. FINDINGS: There is mild parenchymal atrophy. There is no evidence of an acute infarct or intraparenchymal hemorrhage. Calcifications are noted in the lentiform nuclei. Patchy areas of low attenuation are noted in the subcortical and periventricular regions of the supratentorial brain which are nonspecific but most likely represent chronic small vessel ischemic disease. There is no mass effect, midline shift, or extra-axial blood. The ventricles are normal in size without evidence of hydrocephalus. The bone windows are unremarkable. IMPRESSION: 1. No acute disease in the brain. This document has been electronically signed by: Juan Gongora M.D. on 07/27/2024 23:42:53 CTA HEAD WITH CONTRAST AND 3D POST PROCESSING CTA NECK WITH CONTRAST AND 3D POST PROCESSING COMPARISON: CT brain 07/27/2024. IMPRESSION: 1. CTA neck and CTA head demonstrate no evidence of a high-grade stenosis, occlusion, dissection, aneurysm, or vascular malformation. 2. Additional findings are detailed above. This document has been electronically signed by: Juan Gongora M.D. on 07/28/2024 00:39:03 Chronic Conditions Patient?s care impacted by: Diabetes, Hypertension and Other (Paroxysmal atrial fibrillation) Critical Care Time Critical Care Time Critical Care Time: Yes Total Critical Care Time: 45 Attestation: Critical Care: The patient was critically ill with a high probability of imminent or life threatening deterioration. I spent greater than 30 minutes of discontinuous time evaluating the patient,delivering critical care at the bedside, discussing and evaluating pertinent data with consultants. Critical care time does not include time spent performing separately billable procedures or teaching. Total time spent performing critical care was 45 minutes. Discharge Plan Discharge Clinical Impression: Expressive aphasia Patient Disposition: Admitted As Inpatient Print Language: [place]
[2024-07-27 21:55] LABS: INTERNATIONAL NORM RATIO 3.1 (0.9-1.1); Prothrombin Time 35.7 SEC (10.9-12.4)
[2024-07-27 21:59] LABS: Alanine Aminotransferase 15 U/L (0-40); Albumin Level 3.9 g/dL (3.5-5.0); Alkaline Phosphatase 131 U/L (39-117); Anion Gap 14 (12-20); Aspartate Amino Transferase 38 U/L (5-37); Bilirubin Total 0.4 mg/dL (0.0-1.0); Blood Urea Nitrogen 19 mg/dL (9-16); Calcium 9.3 mg/dL (8.4-10.2); Carbon Dioxide 22 mmol/L (22-29); Chloride 104 mmol/L (96-108); Creatinine Clr Calc Pharmacy 59.8; Estimated Glomerular Filt Rate > 60; Glucose Random 175 mg/dL (60-115); Potassium 5.1 mmol/L (3.3-5.1); Sodium 135 mmol/L (135-145); Total Protein 7.4 g/dL (6.5-8.0)
[2024-07-27 22:05] LABS: Troponin-I High Sensitivity 16.7 ng/L (<3.5-35.0)
[2024-07-27 23:28] LABS: Partial Thromboplastin Time 51.1 SEC (26.0-36.8)
[2024-07-27 23:45] VITALS: BP 129/60; PULSE 88; RESP 16; TEMP 36.8; O2SAT 96
--- NOTE | 2024-07-27 23:45 | PC.NURSE ---
pt ambulated with steady gait to/from the bathroom
[2024-07-28 01:10] VITALS: BP 118/48; PULSE 86; RESP 14; O2SAT 97
--- NOTE | 2024-07-28 02:41 | PM.IMHP ---
History of Present Illness Date of Service: 07/28/24 Chief Complaint: Difficulty speaking 79-year-old male with a past medical history of HTN, HLD, DM, paroxysmal AFib on Xarelto, arthritis, recent TAVR at [facility], HX cardiac pacemaker, obesity presented to the hospital today with chief complaint of difficulty speaking. Patient reports around 1700 he had difficulty expressing words. Lasted for about 15 minutes and resolved. Subsequently came to the ER for further evaluation. Denies any symptoms at the time of my interview. Denies any numbness tingling or focal weakness. Denies any headaches or blurry visions. Reports his speech is clear. Denies any difficulty swallowing. Review of all other systems is negative except mentioned above ER course: Per ER team, patient's exam was normal; NIH stroke scale 0. CT head and CT angio head and neck showed no acute findings. Patient already received aspirin, Xarelto, statin prior to arrival. [facility] Medical History (Updated 07/28/24 @ 01:22 by David Boswell MD) Insomnia Hospital discharge follow-up History of echocardiogram Hypertriglyceridemia Tubular adenoma Dyspnea on exertion Obesity (BMI 30-39.9) Right shoulder injury Right shoulder pain Cough Raynaud disease Edema Aortic stenosis Hyperlipemia HTN (hypertension) Type 2 diabetes mellitus PAF (paroxysmal atrial fibrillation) Family History Father No problems noted. Mother No problems noted. Paternal Grandfather CVD (cardiovascular disease) Paternal Grandmother No problems noted. Maternal Grandfather CVD (cardiovascular disease) Maternal Grandmother No problems noted. 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 Cognitive needs: Yes (cane) Hearing needs: Yes (b/l hearing aids) Vision needs: Yes (reading glasses) Meds Allergies Allergy/AdvReac Type Severity Reaction Status Date / Time prednisone Allergy Unknown GI Verified 07/27/24 21:30 Active Medications: Current Medications Acetaminophen (Acetaminophen 325 Mg Tablet) 650 mg PO Q6H PRN PRN Reason: Pain, Mild 1-3,fever,headache Calcium Carbonate (Calcium Carbonate 750 Mg Tab.Chew) 750 mg PO Q4H PRN PRN Reason: Heartburn Magnesium Hydroxide (Milk Of Magnesia 30 Ml Oral.Susp) 30 ml PO DAILY PRN PRN Reason: Constipation Sodium Chloride (0.9 % Sodium Chloride Flush 3 Ml Syringe) 3 ml IVFLUSH QSHIFT [facility] Home Medications ?Medication ?Instructions ?Recorded ?Confirmed ?Last Taken ?Type atorvastatin 40 mg tablet 40 mg PO DAILY 09/02/20 07/10/24 11/15/21 History sitagliptin phosphate 100 mg tablet 100 mg PO DAILY 03/17/21 07/10/24 11/16/21 History omeprazole magnesium 2.5 mg oral 10 mg PO DAILY 09/06/23 07/10/24 Unknown History suspension,delayed release (Prilosec) iron PO 03/13/24 07/10/24 Unknown History acetaminophen 325 mg tablet 650 mg PO Q8H PRN 07/10/24 07/10/24 Unknown History cholecalciferol (vitamin D3) 25 50 mcg PO DAILY 07/10/24 07/10/24 Unknown History mcg/drop (1,000 unit/drop) oral drops Physical Exam Vital Signs and Narrative: Vital Signs: Last Vital Signs Temp 98.3 F 07/27/24 23:45 Pulse 86 07/28/24 01:10 Resp 14 07/28/24 01:10 BP 118/48 L 07/28/24 01:10 Pulse Ox 97 07/28/24 01:10 O2 Del Method Room Air 07/28/24 01:10 BMI result Body Mass Index 31.0 Gen: Appears be in no acute distress HEENT: NCAT, Moist mucosa. Pulmonary: Vesicular breath sounds, fair air entry CVS: Normal S1-S2 Abdomen: BS+, Soft, Nontender Extremities: Warm well perfused Neuro: Alert and awake. Grossly nonfocal Results Labs 07/27/24 21:35 07/27/24 21:34 Labs: Laboratory Results - last 24 hr 07/27/24 07/27/24 21:34 21:35 MCV 90.9 MCH 30.5 MCHC 33.5 RDW 12.9 Plt Count 122 L D MPV 10.0 Immature Gran % (Auto) 0.2 Neut % (Auto) 65.2 Lymph % (Auto) 20.3 [place] % (Auto) 11.4 H Eos % (Auto) 2.3 Baso % (Auto) 0.6 Lymph # (Auto) 1.7 [place] # (Auto) 1.0 Eos # (Auto) 0.2 Baso # (Auto) 0.1 Abs Immat Gran (auto) 0.02 Absolute Neuts (auto) 5.5 Absolute Nucleated RBC 0.000 Nucleated RBC % (auto) 0.0 PT 35.7 H D INR 3.1 H APTT 51.1 H Anion Gap 14 Estim Creat Clear Calc 59.8 Estimated GFR > 60 Random Glucose 175 H Calcium 9.3 Total Bilirubin 0.4 AST 38 H ALT 15 Alkaline Phosphatase 131 H Total Protein 7.4 Albumin 3.9 Assessment and Plan (1) Expressive aphasia: Status: Acute Plan 79-year-old male with a past medical history of HTN, HLD, DM, paroxysmal AFib on Xarelto, arthritis, recent TAVR at [facility], HX cardiac pacemaker, obesity presented to the hospital today with chief complaint of difficulty speaking. Symptoms lasted for 15 minutes. Admitted for TIA. TIA: Patient had 15 minutes episode of expressive aphasia. Currently exam within normal limits CT head and CT angio head and neck showed no acute findings Patient received statin, Xarelto prior to arrival. Plan -telemetry -echocardiogram -patient can not get MRI due to pacemaker-will obtain CT head in 24 hours -neurology consult -PT/OT/HEAD CHAR FILTER TANK TENDER eval -continue home statin, Xarelto Diabetes: Insulin sliding scale Paroxysmal AFib: Patient on Xarelto HX aortic stenosis: Status post TAVR on 07/05/2024 at [facility]. Med reconciliation: Continue home medications pending med rec from pharmacy. DVT prophylaxis: Patient on Xarelto Code status: Full code Quality Stroke Does the patient have a stroke diagnosis?: No VTE Prior VTE?: No VTE Risk Level:: Medical - moderate - high VTE Device Contraindication: Treatment Not Indicated VTE Drug Contraindication: N/A - Med Ordered
[2024-07-28 03:51] VITALS: BP 134/68; PULSE 86; RESP 20; TEMP 36.8; O2SAT 96
[2024-07-28 06:07] LABS: MANUAL DIFF FLAG NO
[2024-07-28 06:12] LABS: Basophils Percent Auto 0.5 % (0-2); Eosinophils Absolute Auto 0.2 X10*3/uL (0.0-0.4); Eosinophils Percent Auto 3.3 % (0-4); Hematocrit 34.3 % (42.0-52.0); Hemoglobin 11.2 g/dl (14.0-18.0); Imm Gran Abs Auto 0.01 X10*3/uL (0.00-0.03); Imm Gran Pct Auto 0.2 % (0.0-0.4); Lymphocytes Absolute Auto 1.6 X10*3/uL (1.2-4.9); Lymphocytes Percent Auto 24.8 % (20-40); Mean Corpuscular HGB Conc 32.7 g/dl (31.0-36.0); Mean Corpuscular Hemoglobin 29.7 pg (27.0-33.0); Mean Platelet Volume 10.2 fL (9.4-12.4); Monocytes Absolute Auto 0.9 X10*3/uL (0.1-1.2); Monocytes Percent Auto 13.8 % (2-11); Neutrophils Absolute Auto 3.8 x10*3/uL (2.0-8.3); Neutrophils Percent Auto 57.4 % (45-73); Platelet Count 118 X10*3/uL (160-400); Red Blood Count 3.77 X10*6/uL (4.60-5.80); White Blood Count 6.6 X10*3/uL (4.8-10.8)
[2024-07-28 06:21] VITALS: BP 124/55; PULSE 83; RESP 16; TEMP 36.8; O2SAT 93
[2024-07-28 06:27] LABS: Alanine Aminotransferase 10 U/L (0-40); Albumin Level 3.5 g/dL (3.5-5.0); Alkaline Phosphatase 130 U/L (39-117); Anion Gap 10 (12-20); Aspartate Amino Transferase 22 U/L (5-37); Bilirubin Total 0.4 mg/dL (0.0-1.0); Blood Urea Nitrogen 19 mg/dL (9-16); Carbon Dioxide 23 mmol/L (22-29); Chloride 109 mmol/L (96-108); Creatinine Clr Calc Pharmacy 70.3; Estimated Glomerular Filt Rate > 60; Glucose Random 107 mg/dL (60-115); Potassium 4.1 mmol/L (3.3-5.1); Sodium 138 mmol/L (135-145); Total Protein 6.3 g/dL (6.5-8.0)
--- NOTE | 2024-07-28 06:36 | PC.NURSE ---
pt resting comfortably at this time, feels at baseline, VSS
[2024-07-28] MEDS: 0.9 % Sodium Chloride Flush 3 ML SYRINGE IVFLUSH (07:39)
[2024-07-28 08:01] VITALS: BP 124/55; PULSE 83; O2SAT 93
[2024-07-28 08:36] LABS: Glucose, Whole Blood 107 mg/dL (60-115)
--- NOTE | 2024-07-28 09:01 | PHA.MEDREC ---
Addendum entered by Yuniel Sen [facility] 07/28/24 09:29: MED REC CHECKED BY [facility] Addendum entered by Julio Landaverde 07/28/24 09:04: Patient confirmed he is no longer taking amlodipine. Original Note: Pharmacy Consult ? Medication Reconciliation Pharmacy has completed the medication reconciliation. Spoke with patient to confirm medications. He said he is no longer taking an antibiotic or steroid. He gets iron, tylenol, vitamin D3, omeprazole, fiber capsules, and eye drops OTC. He took his morning medications and xarelto yesterday.
[2024-07-28 09:34] VITALS: BMI 31.7
[2024-07-28 09:50] VITALS: BP 129/61; PULSE 74; RESP 18; TEMP 36.8; O2SAT 98
--- NOTE | 2024-07-28 11:15 | P.CNNE_ITS ---
History of Present Illness Data of Consult Service Date: 07/28/24 Primary Care Provider: Emiliano Marie MD HPI Reason for consult: Difficulty speaking 79 years old man with paroxysmal atrial fibrillation and cardiac pacemaker on Xarelto came to hospital with an episode of difficulty speaking. He said that he just could not speak well and was probably confused while that was happening. It lasted few minutes and he fell tied afterwards. There was no headache or focal weakness. Something leg this has not happened before. Review of Systems 2 Review of Systems: No recent headache or cold or flu-like illness or trauma [facility] Past Medical History Medical History (Updated 07/28/24 @ 01:22 by David Boswell MD) Insomnia Hospital discharge follow-up History of echocardiogram Hypertriglyceridemia Tubular adenoma Dyspnea on exertion Obesity (BMI 30-39.9) Right shoulder injury Right shoulder pain Cough Raynaud disease Edema Aortic stenosis Hyperlipemia HTN (hypertension) Type 2 diabetes mellitus PAF (paroxysmal atrial fibrillation) Family History Family History Father No problems noted. Mother No problems noted. Paternal Grandfather CVD (cardiovascular disease) Paternal Grandmother No problems noted. Maternal Grandfather CVD (cardiovascular disease) Maternal Grandmother No problems noted. Surgical History Surgical History History of colonoscopy (~01/04/20) History of cardiac cath History of cataract surgery Social History Social History Household Members: Spouse Housing: House Do you presently have visiting nurse or other home services: Yes Alcohol intake: current Alcohol intake frequency: holidays/special occasions only Patient Tobacco Use Status: Former Tobacco user Tobacco use type: Cigarette Smoked in Last 30 Days: No Use of substances other than those prescribed or required for medical reasons: No Currently Displaying Signs/Symptoms of Drug Intoxication Withdrawal: No Have you been hit, kicked, punched, or otherwise hurt by someone within the past year? 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 Cognitive needs: Yes (cane) Hearing needs: Yes (b/l hearing aids) Vision needs: Yes (reading glasses) Meds Allergies Allergy/AdvReac Type Severity Reaction Status Date / Time prednisone Allergy Unknown GI Verified 07/27/24 21:30 Active Medications: Current Medications Acetaminophen (Acetaminophen 325 Mg Tablet) 650 mg PO Q6H PRN PRN Reason: Pain, Mild 1-3,fever,headache Atorvastatin Calcium (Atorvastatin Calcium 40 Mg Tablet) 40 mg PO BEDTIME [facility] Calcium Carbonate (Calcium Carbonate 750 Mg Tab.Chew) 750 mg PO Q4H PRN PRN Reason: Heartburn Dextrose (Dextrose 50 % 25 Gm/50 Ml Syringe) 25 gm IVPUSH Q15M PRN; Protocol PRN Reason: per Hypoglycemia Standing Ord. Gabapentin (Gabapentin 300 Mg Capsule) 300 mg PO BID [facility] Glucose (Glucose Gel 15 Gm Gel..Gram.) 15 gm PO Q15M PRN; Protocol PRN Reason: per Hypoglycemia Standing Ord. Insulin Human Lispro (Insulin Lispro 100 Unit/Ml 3 Ml Vial) 0 unit SUBCUT QIDACHS [facility]; Protocol Last Admin: 07/28/24 07:42 Dose: Not Given Magnesium Hydroxide (Milk Of Magnesia 30 Ml Oral.Susp) 30 ml PO DAILY PRN PRN Reason: Constipation Melatonin (Melatonin 3 Mg Tablet) 6 mg PO BEDTIME PRN PRN Reason: Insomnia Omeprazole (Omeprazole 20 Mg Capsule.Dr) 20 mg PO DAILY@0630 [facility] Rivaroxaban (Rivaroxaban 20 Mg Tablet) 20 mg PO DAILY@1700 [facility] Sodium Chloride (0.9 % Sodium Chloride Flush 3 Ml Syringe) 3 ml IVFLUSH QSHIFT [facility] Last Admin: 07/28/24 07:39 Dose: 3 ml Trazodone HCl (Trazodone Hcl 50 Mg Tablet) 50 mg PO BEDTIME PRN PRN Reason: sleep Vitamin D (Cholecalciferol (Vitamin D3) 25 Mcg Tablet) 25 mcg PO DAILY [facility] Home Medications ?Medication ?Instructions ?Recorded ?Confirmed ?Last Taken ?Type atorvastatin 40 mg tablet 40 mg PO BEDTIME 09/02/20 07/28/24 11/15/21 History sitagliptin phosphate 100 mg tablet 100 mg PO DAILY 03/17/21 07/28/24 07/27/24 History acetaminophen 325 mg tablet 650 mg PO Q8H PRN Pain 07/10/24 07/28/24 Unknown History cholecalciferol (vitamin D3) 25 25 mcg PO DAILY 07/28/24 07/28/24 07/27/24 History mcg (1,000 unit) tablet ferrous sulfate 325 mg (65 mg 325 mg PO DAILY 07/28/24 07/28/24 07/27/24 History iron) tablet omeprazole 20 mg tablet,delayed 20 mg PO DAILY 07/28/24 07/28/24 07/27/24 History release psyllium husk 0.4 gram capsule 0.4 g PO DAILY 07/28/24 07/28/24 07/27/24 History (Fiber (psyllium husk)) Physical Exam 2 Vital Signs: Vital Signs: Last Vital Signs Temp 98.3 F 07/28/24 09:50 Pulse 74 07/28/24 09:50 Resp 18 07/28/24 09:50 BP 129/61 07/28/24 09:50 Pulse Ox 98 07/28/24 09:50 O2 Del Method Room Air 07/28/24 09:50 BMI result Body Mass Index 31.7 Neuro: Other: He is alert and awake with normal spontaneity of speech fluency comprehension and affect. Face is symmetrical. Visual chiang are full. There was no focal weakness. Speech is normal. Results Labs 07/28/24 05:31 07/28/24 05:31 Labs: Short CBC 07/27/24 07/28/24 Range/Units 21:35 05:31 WBC 8.4 6.6 (4.8-10.8) X10*3/uL Hgb 11.4 L 11.2 L (14.0-18.0) g/dl Hct 34.0 L 34.3 L (42.0-52.0) % Plt Count 122 L D 118 L (160-400) X10*3/uL BMP 07/27/24 07/28/24 21:34 05:31 Sodium 135 138 Potassium 5.1 D 4.1 Chloride 104 109 H Carbon Dioxide 22 23 BUN 19 H 19 H Creatinine 1.14 0.97 Calcium 9.3 9.0 Liver Function 07/27/24 07/28/24 Range/Units 21:34 05:31 Total Bilirubin 0.4 0.4 (0.0-1.0) mg/dL AST 38 H 22 (5-37) U/L ALT 15 10 (0-40) U/L Alkaline Phosphatase 131 H 130 H (39-117) U/L Albumin 3.9 3.5 (3.5-5.0) g/dL Noncontrast head CT revealed mild diffuse cerebral atrophy and mild chronic microvascular ischemic changes. CTA of brain and neck did not reveal any vascular stenosis. Assessment and Plan (1) Expressive aphasia: Status: Acute Possible seizure disorder. My recommendation is to consider EEG. As far as stroke risk is concerned, he has already anticoagulated. Procedures Date of Service Date of Service: 07/28/24
--- NOTE | 2024-07-28 11:17 | PM.DS ---
DS: Providers Provider Date of Service: 07/28/24 Date of admission: 07/28/24 02:37 Date of discharge: 07/28/24 Primary care physician: Emiliano Marie MD Consults: 07/28/24 02:37 Consult to Neurology Routine Consulting Provider: [facility] Reason for consultation: TIA DS: Diagnosis Discharge Diagnosis (1) Expressive aphasia: Status: Acute DS: Summary Hospital Course Hospital Course: from initial hpi: 79-year-old male with a past medical history of HTN, HLD, DM, paroxysmal AFib on Xarelto, arthritis, recent TAVR at [facility], HX cardiac pacemaker, obesity presented to the hospital today with chief complaint of difficulty speaking. Patient reports around 1700 he had difficulty expressing words. Lasted for about 15 minutes and resolved. Subsequently came to the ER for further evaluation. Denies any symptoms at the time of my interview. Denies any numbness tingling or focal weakness. Denies any headaches or blurry visions. Reports his speech is clear. Denies any difficulty swallowing. Review of all other systems is negative except mentioned above ER course: Per ER team, patient's exam was normal; NIH stroke scale 0. CT head and CT angio head and neck showed no acute findings. Patient already received aspirin, Xarelto, statin prior to arrival. hospital course: Patient was admitted for episode of expressive aphasia which completely resolved after 15 minutes. Was seen by Neurology, felt Differential diagnosis includes TIA versus seizure disorder. Recommendations were to continue Xarelto and to obtain outpatient EEG and follow up with Neurology as outpatient. Patient was seen by physical therapy recommended discharge home with services. Due to recent TAVR unable to obtain MRI. Was continued on statin. For diabetes continued on insulin sliding scale. For paroxysmal AFib continued on Xarelto. Time Attestation Discharge Coordination Time (in mins): 32 Quality: Safe Use of Opioids Does Pt have an Active Cancer Diagnosis on the Problem List?: No Quality: Stroke Does the patient have a stroke diagnosis?: Yes Reason for No Anti-thrombotic at DC: Drug treatment not indicated Reason for No Anticoagulant at DC: N/A - Med Ordered Reason Not Initiating IV-Tpa: Drug treatment not indicated Reason for No Anti-thrombotic by Day Two: Drug treatment not indicated Reason for No Statin at DC: N/A - Med Ordered Physical Exam Vital Signs: Vital Signs: Last Vital Signs Temp 98.3 F 07/28/24 09:50 Pulse 74 07/28/24 09:50 Resp 18 07/28/24 09:50 BP 129/61 07/28/24 09:50 Pulse Ox 98 07/28/24 09:50 O2 Del Method Room Air 07/28/24 09:50 BMI result Body Mass Index 31.7 General: AO X 3, no acute distress Resp: CTA bilateral, no accessory muscles used CVS: S1,S2,RRR GI: soft, non tender, non distended Neuro: motor grossly intact, alert Psych: appropriate affect, appropriate insight DS: Data Data Completed and Pending Labs on day of discharge: Laboratory Results - last 24 hr 07/27/24 07/27/24 07/28/24 21:34 21:35 05:31 WBC 8.4 6.6 RBC 3.74 L 3.77 L Hgb 11.4 L 11.2 L Hct 34.0 L 34.3 L MCV 90.9 91.0 MCH 30.5 29.7 MCHC 33.5 32.7 RDW 12.9 13.0 Plt Count 122 L D 118 L MPV 10.0 10.2 Immature Gran % (Auto) 0.2 0.2 Neut % (Auto) 65.2 57.4 Lymph % (Auto) 20.3 24.8 Bullock % (Auto) 11.4 H 13.8 H Eos % (Auto) 2.3 3.3 Baso % (Auto) 0.6 0.5 Lymph # (Auto) 1.7 1.6 Bullock # (Auto) 1.0 0.9 Eos # (Auto) 0.2 0.2 Baso # (Auto) 0.1 0.0 Abs Immat Gran (auto) 0.02 0.01 Absolute Neuts (auto) 5.5 3.8 Absolute Nucleated RBC 0.000 0.000 Nucleated RBC % (auto) 0.0 0.0 PT 35.7 H D INR 3.1 H APTT 51.1 H Sodium 135 138 Potassium 5.1 D 4.1 Chloride 104 109 H Carbon Dioxide 22 23 Anion Gap 14 10 L BUN 19 H 19 H Creatinine 1.14 0.97 Estim Creat Clear Calc 59.8 70.3 Estimated GFR > 60 > 60 POC Glucose Random Glucose 175 H 107 Calcium 9.3 9.0 Total Bilirubin 0.4 0.4 AST 38 H 22 ALT 15 10 Alkaline Phosphatase 131 H 130 H Troponin I High Sens 16.7 D Total Protein 7.4 6.3 L Albumin 3.9 3.5 07/28/24 07:21 WBC RBC Hgb Hct MCV MCH MCHC RDW Plt Count MPV Immature Gran % (Auto) Neut % (Auto) Lymph % (Auto) Bullock % (Auto) Eos % (Auto) Baso % (Auto) Lymph # (Auto) Bullock # (Auto) Eos # (Auto) Baso # (Auto) Abs Immat Gran (auto) Absolute Neuts (auto) Absolute Nucleated RBC Nucleated RBC % (auto) PT INR APTT Sodium Potassium Chloride Carbon Dioxide Anion Gap BUN Creatinine Estim Creat Clear Calc Estimated GFR POC Glucose 107 Random Glucose Calcium Total Bilirubin AST ALT Alkaline Phosphatase Troponin I High Sens Total Protein Albumin Discharge Plan Discharge Anticipated Discharge Date/Time: 07/28/24 11:14 Patient Disposition: Home Health Service Discharge Diagnosis: tia vs seizure Referrals: Shivam Vogt MD [Physician] - 1 Week Emiliano Marie MD [Primary Care Provider] - 1 Week Discharge Medications: Continued Xarelto 20 mg tablet 20 mg PO DAILY Qty: 90 3RF ferrous sulfate 325 mg (65 mg iron) Tablet 325 mg PO DAILY cholecalciferol (vitamin D3) 25 mcg (1,000 unit) Tablet 25 mcg PO DAILY omeprazole 20 mg Tablet,Delayed Release (Dr/Ec) 20 mg PO DAILY psyllium husk [Fiber (psyllium husk)] 0.4 gram Capsule 0.4 g PO DAILY atorvastatin 40 mg tablet 40 mg PO BEDTIME sitagliptin phosphate 100 mg tablet 100 mg PO DAILY gabapentin 300 mg capsule 300 mg PO BID Qty: 180 1RF acetaminophen 325 mg tablet 650 mg PO Q8H PRN (Reason: Pain) albuterol sulfate 90 mcg/actuation HFA aerosol inhaler 1 inh inhalation QID PRN (Reason: shortness of breath or wheezing) Qty: 8.5 3RF trazodone 50 mg tablet 50 mg PO BEDTIME PRN (Reason: sleep) Qty: 90 1RF Artificial Eye Lubricant 83-15 % ointment 1 appl ophthalmic (eye) BID-QID PRN (Reason: dry eye(s)) Qty: 3.5 5RF Discharge Orders: Discharge Order (Routine); Ordered 07/28/24 Ordered By: Antonio Saavedra Diet: Advance to usual diet Activity on Discharge: As tolerated Stand Alone Forms: Patient Portal Discharge page Print Language: Pashto Other Ambulatory Orders: EEG ambulatory (Routine) Timeframe: 3 Days Facility: [facility] - Location: Radiology Ordered By: Antonio Saavedra Care Plan Goals: avoid repeat episodes Health Concerns: aphasic episode Plan of Treatment: continue xarelto, obtain EEG, follow up with neuro Assessment: see above
--- NOTE | 2024-07-28 11:19 | W.MHC.F2F ---
Service Date Service Date: 07/28/24 Encounter Date of encounter: 07/28/24 Reasons for Services Signs and symptoms assessed: Muscle weakness, impaired joint range of motion, chronic pain Reason for physical therapy: home safety and mobility and therapeutic exercises Homebound: Leaving the home is medically contraindicated at this time without the asist of a device and/or another person due th the listed conditions above and below. Reason homebound: unsteady gait / fall risk Certification: Based on the above findings, I certify that this patient is confined to the home and needs intermittent detention care, physical therapy and/or speech therapy, or continues to need occupational therapy. The patient is under my care, and I have initiated the establishment of the plan of care. The patient will be followed by a physician who will periodically review the plan of care. Time Spent With Patient Time: Total time managing care of this patient today ____ minutes.
[2024-07-28 11:21] VITALS: BP 129/61; PULSE 74; RESP 18; TEMP 36.7; O2SAT 96
[2024-07-28 12:20] LABS: Glucose, Whole Blood 136 mg/dL (60-115)
--- NOTE | 2024-07-28 13:26 | MHC.CM.PN ---
CM met with Patient at bedside and addressed IMM with him, providing Patient with the original and a copy has been placed on the chart. Patient lives in a house with his , who has Parkinson's and is w/c bound. Patient is active with [facility], who has been made Aware of today's dc. Patient's PCP is Dr. Marie and his Sister/HCP/Yareli or his Son will transport to home.
== END 2024-07-28 15:20 | disposition home health service (06) ==
LOC: HO.ED 07-28 01:22 → HO.EDOVER 07-28 02:44 → HO.IMC 07-28 08:03
PROVIDERS: Admitting Provider Hospitalist; Emergency Provider Emergency Medicine Emergency Medical Services; PCP Internal Medicine; Visit Provider Internal Medicine
DX: R47.01 Aphasia (principal); E11.9 Type 2 diabetes mellitus without complications; I10 Essential (primary) hypertension; E78.5 Hyperlipidemia, unspecified; I48.0 Paroxysmal atrial fibrillation; Z86.718 Personal history of other venous thrombosis and embolism; Z87.891 Personal history of nicotine dependence; Z95.0 Presence of cardiac pacemaker; Z79.01 Long term (current) use of anticoagulants; Z79.899 Other long term (current) drug therapy; Z79.4 Long term (current) use of insulin
CPT/HCPCS: 36415; 70450; 70496; 70498; 80053; 82947; 84484; 85025; 85610; 85730; 93005; 97161; 99222; 99285

== ENCOUNTER → 2024-07-27 21:29 | Outpatient (BNV) | payer MEDICARE, OTHER, SELFPAY | PROVIDERS: Admitting Provider Hospitalist; Emergency Provider Emergency Medicine Emergency Medical Services; PCP Internal Medicine; Visit Provider Internal Medicine Cardiovascular Disease | DX: I44.0 Atrioventricular block, first degree (principal); I45.19 Other right bundle-branch block; R94.31 Abnormal electrocardiogram [ECG] [EKG] | CPT/HCPCS: 93010 ==

== ENCOUNTER → 2024-07-27 21:48 | Outpatient (BNV) | payer MEDICARE, OTHER, SELFPAY | PROVIDERS: Emergency Provider Emergency Medicine Emergency Medical Services; PCP Internal Medicine; Visit Provider Radiology Diagnostic Radiology | DX: R47.89 Other speech disturbances (principal) | CPT/HCPCS: 70450; 70496; 70498 ==

== ENCOUNTER → 2024-07-28 02:37 | Outpatient (BNV) | payer MEDICARE, OTHER, SELFPAY | PROVIDERS: Admitting Provider Hospitalist; Emergency Provider Emergency Medicine Emergency Medical Services; PCP Internal Medicine; Visit Provider Internal Medicine | DX: R47.01 Aphasia (principal) | CPT/HCPCS: 99234; 99499; G0180 ==

== ENCOUNTER → 2024-07-28 02:37 | Outpatient (BNV) | payer MEDICARE, OTHER, SELFPAY | PROVIDERS: Admitting Provider Hospitalist; Emergency Provider Emergency Medicine Emergency Medical Services; PCP Internal Medicine; Visit Provider Psychiatry & Neurology Neurology | DX: R47.01 Aphasia (principal) | CPT/HCPCS: 99222 ==

== ENCOUNTER 2024-07-30 14:01 | Outpatient (AMB) | payer MEDICARE, OTHER, SELFPAY ==
--- NOTE | 2024-07-30 14:13 | MHC.OFFVIS ---
Vital Signs 07/30/24 14:14 Height 5 ft 9 in Weight 214 lb BMI 31.6 Intake Visit Reasons: Left shoulder pain and weakness Intake Note: Thaddeus is a 79 year old right hand dominant male who presents with complaints of progressively worsening left shoulder pain and weakness. The patient describes his pain as sharp in nature. The patient did injure his left shoulder several months ago while lifting a heavy bag of groceries. He felt a ?pop? in his left shoulder when he lifted the groceries. Since that time he has had difficulty lifting his left hand above shoulder height. He has failed the last 6 weeks of conservative treatment which has included a home exercise program, physical therapy exercises, Tylenol and anti-inflammatory medicines. Allergies prednisone Allergy (Unknown, Verified 07/30/24 14:17) GI Medication List - Last Reconciled 07/30/24 by Diaz Cid MD acetaminophen 650 mg PO Q8H PRN albuterol sulfate 90 mcg/actuation 1 inh inhalation QID PRN atorvastatin 40 mg PO BEDTIME cholecalciferol (vitamin D3) 25 mcg PO DAILY ferrous sulfate 325 mg PO DAILY gabapentin 300 mg PO BID omeprazole 20 mg PO DAILY psyllium husk (Fiber (psyllium husk)) 0.4 grams PO DAILY rivaroxaban (Xarelto) 20 mg PO DAILY sitagliptin phosphate 100 mg PO DAILY trazodone 50 mg PO BEDTIME PRN white petrolatum-mineral oil 83-15 % (Artificial Eye Lubricant) 1 appl ophthalmic (eye) BID-QID PRN PFSH Medical History (Updated 07/30/24 @ 14:38 by Diaz Cid MD) Insomnia Hospital discharge follow-up History of echocardiogram Hypertriglyceridemia Tubular adenoma Dyspnea on exertion Obesity (BMI 30-39.9) Right shoulder injury Right shoulder pain Cough Raynaud disease Edema Aortic stenosis Hyperlipemia HTN (hypertension) Type 2 diabetes mellitus PAF (paroxysmal atrial fibrillation) Surgical History History of colonoscopy (~01/04/20) History of cardiac cath History of cataract surgery Family History Father No problems noted. Mother No problems noted. Paternal Grandfather CVD (cardiovascular disease) Paternal Grandmother No problems noted. Maternal Grandfather CVD (cardiovascular disease) Maternal Grandmother No problems noted. 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 Cognitive needs: Yes (cane) Hearing needs: Yes (b/l hearing aids) Vision needs: Yes (reading glasses) Physical Exam Vital Signs: BMI result Body Mass Index 31.6 Const Other: Well-nourished well-developed very friendly male awake alert and oriented x3 in no acute distress Extrem Other: Bilateral upper extremity examination shows good capillary refill, no skin lesions noted, normal sensation light touch Left shoulder examination shows decreased range of motion when compared to his right shoulder, 4/5 strength with supraspinatus testing, positive impingement signs, no instability, tenderness over his acromioclavicular joint Results Reviewed Results Reviewed: X-rays of the patient's left shoulder show severe acromioclavicular joint narrowing, a type 3 acromion, no acute bony abnormalities Assessment & Plan Assessment & Plan (1) Rotator cuff insufficiency of left shoulder: Code(s): M25.312 - Other instability, left shoulder Category: Medical Plan Mr. Velásquez presents with progressively worsening left shoulder pain and weakness most likely due to a full-thickness rotator cuff tear. Thus, I will send the patient for an MRI of his left shoulder for further evaluation. I will see him back once the MRI is completed to discuss the findings and treatment options. Feel free to call me at any time should questions regarding his orthopedic management arise. Thank you very much for asking me to see this very friendly gentleman. I spent 22 minutes in reviewing the patient's records and imaging studies, seeing the patient and documenting in the medical record. Orders: Orders MR shoulder LT wo con 07/30/24 M25.312 - Other instability, left shoulder Coding Level of Care Code New Pt Level 3 (13881) Complex EM visit Add On G2211 Diagnoses Rotator cuff insufficiency of left shoulder M25.312
[2024-07-30 14:14] VITALS: BMI 31.6
--- OUTSIDE RECORDS SUMMARY | 2024-07-30 15:53 | XMS_ITS ---
Author Organization [facility] Address [address] [place] [address] Care Team Providers Care Journeyman Mechanic Name Role Phone Roberto Carlos (RETIRED) Anselmo [...] 08/11/2023 Encounters Encounter Location Date Provider Diagnosis [facility] [address] [place] [address] 08/11/2023 Miguel Saha Jr Gastroesophageal reflux disease, [...] will continue to use Pepto-Bismol or other hjnt-dfo-nipmc er antacids and simethicone as needed. 08/11/2023 [...] will continue to use Pepto-Bismol or other npos-rkv-zmifh er antacids and simethicone as needed. 08/11/2023 [...] will continue to use Pepto-Bismol or other xvbx-jxa-rzorl er antacids and simethicone as needed. Plan Of Treatment Treatment Notes Assessment Notes Gastroesophageal reflux dise ase, unspecified whether esophagitis present Gas - flatulence material was printed Next Appt Details Follow Up: 1 Year, Reason: Provider Name:Miguel soto Jr, 08/09/2024 01:15:00 PM, [address], [address], [place], [address], Progress Notes * MELY KAUR WDOB: [birth year] (78 yo M)Acc No.[id number]:08/11/2023 Progress Notes Patient:?MELY KAUR W Provider:?Miguel Saha MD :1945???Age:78 Y???Sex:Male Tanner e:08/11/2023 Address:[address] [place], [place] [id number] Pcp:Anselmo Azevedo, DO Subjective: * Chief Complaints: [...] will continue to use Pepto-Bismol or other musd-ywu-zjtsbln antacids and simethicone as needed. Plan: * Treatment: * Procedure Codes:?G9903 Pt sc rn tbco id as non user, G9744 PATIENT NOT ELIG D/T ACTIVE DX HTN * Preventive Medicine:? ??Counseling:?Care goal follow-up plan:?Above Normal BMI Follow-up?Giving encouragement to exercise,?BMI management provided?Yes.? * Follow Up:?1 Year * * Sign off status: Completed true * Provider:?Miguel Saha MD Date:?0 08/11/2023 Generated for Printi delmy/Skyler/eTransmitting on:?07/30/2024 03:53 PM EDT History and Physical Notes * HPI [...]
--- OUTSIDE RECORDS SUMMARY | 2024-07-30 15:53 | XMS_ITS ---
Author Organization [facility] Address [address] [place] [address] Care Team Providers Care Criminal Records Technician Name Role Phone Anselmo Azevedo MD Primary Care Provider Unavail elisabeth BucioakerKelsie Unavailable [phone] Allergies Allergen (clinical drug ingredient) Drug/Non Drug [...] Polyneuropathy due to diabetes mellitus type I (418978602) Type 1 diabetes mellitus with diabetic polyneuropathy (E10.42) Active confirmed Vital Signs Height 5 ft 10 in in 03/21/2024 Weight 215 lbs 03/21/2024 BMI 30.85 kg/m2 03/21/2024 Blood pressure systolic 120 mm Hg 03/21/20 24 Blood pressure diastolic 70 mm Hg 024 Procedures Procedure Date Ordered Date Performed Result Body Sit e 23862-ASHAYIF NAIL, 6 OR MORE 03/21/2024 N/A 08110-WARM SKIN LESIONS, OVER 4 03/21/2024 N/A Encounters Encounter Location Date Provider Diagnosis [facility] [address] [place] [address] 03/21/2024 Kelsie Coughlin Type 2 diabetes mellitus with diabetic polyneuropathy E11.42 and Tinea unguium B35.1 Assessments Encounter Date Diagnosis (ICD Code) Assessment Notes Treatment Notes Treatment Clinical Notes Section Notes 03/21/2024 Type 2 diabetes mellitus with diabetic polyneuropathy (ICD-10 - E11.42) 03/21/2024 Tinea unguium (ICD-10 - B35.1) Plan Of Treatment Pending Test Test Name Order Date 53718-VUMPSLT NAIL, 6 OR MORE 03/21/2024 30867-IYCD SKIN LESIONS, OVER 4 03/21/20 Next Appt Details Follow Up: 3 Months, Reason: Provider Name:Kelsie zaragoza, 08/23/2024 01:15:00 PM, [address] [facility], [place], [address], Procedure Notes * Category Sub-Category Detail Notes [...] use of a nail nipper and/or dremel-type internal grinder tender, to a more viable healthy nail plate or bed tissue 6-10. Silver nitrate used for any petechial bleeding as necessary. Definitive antifungal treatment options have been reviewed and discussed with the patient. The patient chooses, no pharmaceutical tx - 90762 Keratoma Treatment Parring or Cutting o f Benign Hyperkeratotic Lesion(s) (-57) More than 4 Lesions - The Benign hyperkeratotic lesions, as described in exam, were pared, and/or cut utilizing a sterile 15 blade, tissue nippers, and/or dremel - 18282 Progress Notes * Thaddeus VELÁSQUEZ JrDOB:1944 (79 yo M)Acc No.[id number]:03/21/2024 Progress Note Patient:?Thaddeus VELÁSQUEZ Jr Provider:?Kelsie Coughlin DPM :1945???Age:79 Y???Sex:Male Tanner e:03/21/2024 Address:[address] [place], [place] [address], [place] Pcp:Anselmo Azevedo MD Subjective: * Chief Complaints: [...] * Hospitalization/Major Diagno stic Procedure:?[facility] pt was light headed, sweaty. 03/2016[facility] ER for chest pain. 11/08/2017[facility] nose bleed 2019 * Family History:?Mother: dece [...] use of a nail nipper and/or dremel-type internal grinder tender, to a more viable healthy nail plate or bed tissue 6-10. Silver nitrate used for any petechial bleeding as necessary. Definitive antifungal treatment options have been reviewed and discussed with the patient. The patient chooses, no pharmaceutical tx - 76759.?Keratoma Treatment:?Parring or Cutting of Benign Hyperkeratotic Lesion(s)?(-57) More than 4 Lesions - The Benign hyperkeratotic lesions, as described in exam, were pared, and/or cut utilizing a sterile 15 blade, tissue nippers, and/or dremel - 84699.? * Procedure Codes:?35499 DEBRI DE NAIL, 6 OR MORE, Modifiers: XS 57150 TRIM SKIN LESIONS, OVER 4, Modifiers: XS * Follow Up:?3 Months * Images: * Sign off status: Completed true * Provider:?Kelsie Coughlin DPM Date:?1 05/21/2023 Generated for Alexandria brock/Skyler/Oswaldoitting on:?07/30/2024 03:53 PM EDT History and Physical [...]
--- OUTSIDE RECORDS SUMMARY | 2024-07-30 15:53 | XMS_ITS ---
Author Organization [facility] Address [address] [facility] [place] [address] Care Team Providers Care Simulation Educator Name Role Phone Anselmo Azevedo MD Primary Care Provider Unavail able Kelsie Coughlin Unavailable [phone] Reed Burt Unavailable [phone] Allergies Allergen (clinical drug ingredient) Drug/Non Drug [...] Active Encounters Encounter Location Date Provider Diagnosis [facility] [address] [address] 06/22/2024 Reed Burt Plan Of Treatment Next Appt Details Provider Name:Kelsie zaragoza, 08/23/2024 01:15:00 PM, [address] [place] [address], [address], Progress Notes * Thaddeus VELÁSQUEZ JrDOB:1944 (79 yo M)Acc No.[id number]:06/22/2024 Progress Note Patient:?Thaddeus VELÁSQUEZ Jr Provider:?Reed Burt DPM :1945???Age:79 Y???Sex:Male Tanner e:06/22/2024 Address:[address] [place], [place] [id number] Pcp:Anselmo Azevedo MD Subjective: * Chief Complaints: [...] Burt DPM Date:?2024 Generated for Alexandria brock/Skyler/Bronwyn on:?07/30/2024 03:53 PM EDT
--- OUTSIDE RECORDS SUMMARY | 2024-07-30 15:53 | XMS_ITS | Patient Health Record ---
Author Organization [facility] Address [address] [facility] [place] [address] Care Team Providers Care Head Stock Transfer Clerk Name Role Phone Anselmo Azevedo MD Primary Care Provider Unavail able Kelsie Coughlin Unavailable [phone] Helio Guillory Unavailable [phone] Reed Burt Unavailable [phone] Allergies Allergen (clinical drug ingredient) Drug/Non Drug [...] Polyneuropathy due to diabetes mellitus type I (462113350) Type 1 diabetes mellitus with diabetic polyneuropathy (E10.42) Active confirmed Problem Bilateral atherosclerosis of arteries of lower limbs (disorder) (22907680763974860 ) Unspecified atherosclerosis of [place] arteries of extremities, bilateral legs (I70.203) Active confirmed Problem Chronic ulcer of foot (514708591) Non-pressure chronic ulcer of other part of left foot with fat layer exposed (L97.522) Active confirmed Problem Polyneuropathy due to type 2 diabetes mellitus (014239585) Type 2 diabetes mellitus with diabetic polyneuropathy (E11.42) Active confirmed Problem Acquired hammer toe of right foot (7303993529889422) Other hammer toe(s) (acquired), right foot (M20.41) Active confirmed Problem Acquired hammer toe of left foot (1482242987715670) Other hammer toe(s) (acquired), left foot (M20.42) Active confirmed Vital Signs Blood pressure diastolic 70 mm Hg 03/21/2024 Height 5 ft 10 in in 03/21/2024 Blood pressure systolic 120 mm Hg 03/21/2024 Weight 215 lbs 03/21/2024 BMI 30.85 kg/m2 03/21/2024 Procedures Procedure Date Ordered Date Performed Result Body Sit e 02414-UVMFHUY NAIL, 6 OR MORE 03/21/2024 N/A 97535-ZUUC SKIN LESIONS, OVER 4 03/21/2024 N/A Encounters Encounter Location Date Provider Diagnosis [facility] [address] [address] 09/15/2023 Helio Guillory Tinea unguium B35.1 ; Pain in right toe(s) M79.674 ; Pain in left toe(s) M79.675 ; Type 2 diabetes mellitus with diabetic polyneuropathy E11.42 ; Other hammer toe(s) (acquired), left foot M20.42 ; Other hammer toe(s) (acquired), right foot M20.41 ; Unspecified atherosclerosis of [place] arteries of extremities, bilateral legs I70.203 and Localized edema R60.[address] [facility] [address] 12/19/2023 Helio Guillory Tinea unguium B35.1 ; Pain in right toe(s) M79.674 ; Pain in left toe(s) M79.675 ; Type 2 diabetes mellitus with diabetic polyneuropathy E11.42 ; Other hammer toe(s) (acquired), left foot M20.42 ; Other hammer toe(s) (acquired), right foot M20.41 ; Unspecified atherosclerosis of [place] arteries of extremities, bilateral legs I70.203 and Localized edema R60.[address] [address] 03/21/2024 Kelsie Coughlin Type 2 diabetes mellitus with diabetic polyneuropathy E11.42 and Tinea unguium B35.[address] [address] 06/22/2024 Kelsie Coughlin Assessments Encounter Date Diagnosis [...] (ICD-10 - M20.41) 09/15/2023 Unspecified atherosclerosis of [place] arteries of extremities, bilateral legs (ICD-10 - I70.203) 09/15/2023 Localized edema (ICD-10 - R60.0) 12/19/2023 Unspecified atherosclerosis of [place] arteries of extremities, bilateral legs (ICD-10 - I70.203) 12/19/2023 Localized edema (ICD-10 - R60.0) Plan Of Treatment Pending Test Test Name Order Date X ray : Ankle, right 2V 05/13/2014 *Uric Acid, Serum 05/13/2014 *CBC With Differential/Platelet 05/13/19 15 *Sedimentation Rate-Westergren 5 X ray : Foot, right 3V 02/06/2014 X ray : Foot, right 3V 05/13/2014 X ray : Foot, right 3V 01/17/2023 82336-QEFIGEG NAIL, 6 OR MORE 01/16/2018 56013-BJCXAUV NAIL, 6 OR MORE 03/21/2024 18400-FYUCIZC NAIL, 6 OR MORE 04/13/2017 56215-HOGDKTA NAIL, 6 OR MORE 07/18/2017 38582-SQHTCJN NAIL, 6 OR MORE 10/17/2017 43618-UKAHORO NAIL, 6 OR MORE 04/17/2018 42660-TLJSEQX NAIL, 1-5 07/12/2016 75795-GJVBRKQ NAIL, 1-5 10/13/2016 65376-SVHAUDM NAIL, 1-5 01/12/2017 16251-BHNIFFA NAIL, 1-5 06/30/2015 52362-AGZKMVO NAIL, 1-5 10/01/2015 02957-CNWVONR NAIL, 1-5 01/08/2016 55445-GKSGJYP NAIL, 1-5 04/12/2016 31414-LBCJEDO NAIL, 1-5 10/10/2014 33951-IVFEFCO NAIL, 1-5 02/12/2015 88075- Debride <25 sq cm 02/23/2023 63194-UPNCWRJ SKIN/TISSUE 03/16/2023 53535-OQGICYZ SKIN/TISSUE 01/10/2023 85381-EXQEYNQ SKIN/TISSUE 05/05/2023 66063- I&D ABSCESS-COMPLICATED,MULTI 96975-RJNG SKIN LESIONS, OVER 4 07/19/19 18 35752-TMJW SKIN LESIONS, OVER 4 04/17/20 18 12176-DCHM SKIN LESIONS, OVER 4 03/21/20 24 13826-ANJN SKIN LESIONS, OVER 4 07/18/19 19 09618-GVAT SKIN LESIONS, OVER 4 10/17/19 19 97691-YVYU SKIN LESIONS, OVER 4 01/18/20 19 50504-GNNN SKIN LESIONS, OVER 4 04/18/20 19 94033-NAHL SKIN LESIONS, OVER 4 07/05/19 20 77262-OTHS SKIN LESIONS, OVER 4 09/27/19 20 67257-KDXK SKIN LESIONS, OVER 4 12/26/19 20 36505-YLNI SKIN LESIONS, OVER 4 03/19/20 20 57386-XNQK SKIN LESIONS, OVER 4 06/23/19 21 89649-YFDJ SKIN LESIONS, OVER 4 09/23/19 21 00138-WEDS SKIN LESIONS, OVER 4 12/26/19 21 89315-EESA SKIN LESIONS, OVER 4 03/30/20 21 53667-ETXM SKIN LESIONS, OVER 4 07/02/19 22 13496-MCOS SKIN LESIONS, OVER 4 01/17/20 18 25361-AWKS SKIN LESIONS, OVER 4 10/18/19 18 30052-MJXC SKIN LESIONS, OVER 4 01/13/20 17 15020-BOJL SKIN LESIONS, OVER 4 04/13/20 17 38069-IVDW SKIN LESIONS, OVER 4 02/13/20 15 31158-XHVP SKIN LESIONS, OVER 4 06/12/19 15 99317-MZXX SKIN LESIONS, OVER 4 10/11/19 15 71414-SDVQ SKIN LESIONS, OVER 4 04/17/20 14 20175-SVLN SKIN LESIONS, OVER 4 04/12/20 16 09135-SFPI SKIN LESIONS, OVER 4 01/08/20 16 41233-EVMS SKIN LESIONS, OVER 4 10/01/19 16 48455-EWZH SKIN LESIONS, OVER 4 06/30/19 16 70395-BUSC SKIN LESIONS, OVER 4 07/13/19 17 13046-OXSC SKIN LESIONS, OVER 4 10/14/19 17 71618-WWPX SKIN LESIONS, 2 TO 4 02/07/20 14 07992-OBJY NAIL(S) 02/06/2014 15984-DEKV NAIL(S) 04/17/2014 23356-LQTW NAIL(S) 10/10/2014 29768-ZZVV NAIL(S) 06/12/2014 62407-RJRK NAIL(S) 02/12/2015 90320-SYSA NAIL(S) 07/12/2016 93934-ZENA NAIL(S) 01/12/2017 20488-ODFH NAIL(S) 10/13/2016 11758-ZDMX NAIL(S) 06/30/2015 12934-GRMN NAIL(S) 10/01/2015 06809-ONQF NAIL(S) 01/08/2016 21908-CCVU NAIL(S) 04/12/2016 28918-SUQZBCES OF HEMATOMA/FLUID 018 41981-NVSLBOEH OF HEMATOMA/FLUID 023 Next Appt Details Provider Name:eKlsie zaragoza, 08/23/2024 01:15:00 PM, [address] [place] [address], [place], [address], Insurance Providers Payer Name Payer Address Payer Phone Subscriber Number Group Number Insured Name Patient Relationship to Insured Coverage Start Date Coverage End Date Medicare [employer] [address] [place] [address] [id number] Thaddeus Velásquez Self - patient is the insured [address] [place] [address] [address] [place] [address] [phone] [id number] Thaddeus Velásquez Self - patient is the insured Medical (General) History Medical History History ICD Code Arthritis Back,Hip,and Knee pain Broken bones Cataracts Chicken pox Measles Mumps type II diabetes Neuropathy Sciatica pericarditis Surgical History Surgery Date(Month/Year) cystoscopy cataract 2010 Hospitalization History Reason Date(Month/Year[place] [facility] [facility] [place]. 11/08/2017 [facility] light headed, sweaty. 03/2016
--- OUTSIDE RECORDS SUMMARY | 2024-07-30 15:53 | XMS_ITS | Patient Health Record ---
Author Organization [facility] Address [address] [place] [address] Care Team Providers Care Principal Network Engineer Name Role Phone Roberto Carlos (RETIRED) Anselmo [...] Problem Status W/U Status Risk Notes Problem 759533576 Colon cancer screening (Z12.11) Active confirmed Problem 140476454 Change in bowel habits (R19.4) Active confirmed Problem 03550638 Diarrhea, unspecified type (R19.7) Active confirmed Problem 272177566 Gas bloat syndro me (K92.89) Active confirmed Problem 250100266 Gastroesophageal reflux disease, unspecified whether esophagitis present (K21.9) Active confirmed Vital Signs Blood pressure diastolic 00 mm Hg 08/11/2023 Height 70.5 in 08/11/2023 Blood pressure systolic 00 mm Hg 08/11/2023 Weight 220 lbs 08/11/2023 BMI 31.12 kg/m2 08/11/2023 Encounters Encounter Location Date Provider Diagnosis [facility] [address] [facility] [address] [place] [address] 08/11/2023 Miguel Saha Jr Gastroesophageal reflux disease, [...] will continue to use Pepto-Bismol or other dduu-nhx-mehtq er antacids and simethicone as needed. 08/11/2023 [...] will continue to use Pepto-Bismol or other xvrj-ntn-xqmoc er antacids and simethicone as needed. 08/11/2023 [...] will continue to use Pepto-Bismol or other mpbf-hil-ybhhk er antacids and simethicone as needed. Plan [...] Provider Name:Miguel soto Jr, 08/09/2024 01:15:00 PM, [address] [place] [address], [address], [place], [address], Insurance Providers Payer Name Payer Address Payer Phone Subscriber Number Group Number Insured Name Patient Relationship to Insured Coverage Start Date Coverage End Date MEDICARE OF [place] [address] [place] [address] [id number] MELY KAUR Self - patient is the insured [facility] [address] [place] [address] [phone] [id number] MELY KAUR Self - patient is the insured Medical (General) History Medical History History ICD Code Colonoscopy 01/04/20, tubular adenoma, further screening is not recommended based on age. type II diabetes elevated Cholesterol pericarditis Afib hypertension Aortic stenosis Surgical History Surgery Date(Month/Year) tonsillectomy cataract-lens implants toe nail removal due to infection
--- OUTSIDE RECORDS SUMMARY | 2024-07-30 15:53 | XMS_ITS ---
Author Organization [facility] Address [address] [place] [address] Care Team Providers Care Health And Safety Technician Name Role Phone Anselmo Azevedo MD Primary Care Provider Unavail Kelsie Yepez [phone] REASON FOR VISIT same day rs 06/22/24 Encounters Encounter Location Date Provider Diagnosis [address] [address] 06/22/2024 Kelsie Coughlin Plan Of Treatment Next Appt Details Provider Name:Kelsie zaragoza, 08/23/2024 01:15:00 PM, [address] [place] [address], [phone], Progress Notes * DIDIER Thaddeus Hattie MortonDOB:1944 (79 yo M)Acc No.[id number]:06/22/2024 Patient:?Thaddeus VELÁSQUEZ Jr :1945???Age:79 Y???Sex:Male Address:[address] [place] [address] [facility] [place] [address] * true * Date:? Generated for Printi ng/Fakulwinderg/eTransmitting on:?07/30/2024 03:53 PM EDT
== END 2024-07-30 14:39 | disposition home or self-care (01) ==
LOC: HO.HOS 14:02
PROVIDERS: PCP Internal Medicine; Visit Provider Orthopaedic Surgery
DX: M25.312 Other instability, left shoulder (principal)
CPT/HCPCS: 99203; G2211

== ENCOUNTER → 2024-07-30 14:01 | Outpatient (BNVA) | payer MEDICARE, OTHER, SELFPAY | PROVIDERS: PCP Internal Medicine; Visit Provider Orthopaedic Surgery | DX: M25.312 Other instability, left shoulder (principal) | CPT/HCPCS: 99202 ==

== ENCOUNTER 2024-08-06 10:12 | Outpatient (AMB) | payer MEDICARE, OTHER, SELFPAY ==
[2024-08-06 10:17] VITALS: BP 142/70; PULSE 78; RESP 16; TEMP 36.5; O2SAT 94; BMI 32.2
--- NOTE | 2024-08-06 10:17 | A.OFFPC_ITS ---
Vital Signs 08/06/24 10:17 Height 5 ft 9 in Weight 218 lb BMI 32.2 BP 142/70 H Respiration 16 Pulse 78 Pulse Source Pulse Oximeter Temp 97.7 F Temp Source Temporal Artery Scan Pulse Oximetry (%) 94 Oxygen Delivery Method Room Air Intake Visit Reasons: Hospital Discharge Intake Note: Visit Reason: TCM Intake Note: Patient is here for hospital discharge follow up. Patient was discharged from [facility] Laundry Operator Required: No Machinist Apprentice: Not Required per policy Accompanied by: Self / Same As Patient Allergies prednisone Allergy (Unknown, Verified 08/06/24 13:35) GI Medication List - Last Reconciled 08/06/24 by Katherin Slade PA-C acetaminophen 650 mg PO Q8H PRN albuterol sulfate 90 mcg/actuation 1 inh inhalation QID PRN atorvastatin 40 mg PO BEDTIME cholecalciferol (vitamin D3) 25 mcg PO DAILY ferrous sulfate 325 mg PO DAILY gabapentin 300 mg PO BID omeprazole 20 mg PO DAILY psyllium husk (Fiber (psyllium husk)) 0.4 grams PO DAILY rivaroxaban (Xarelto) 20 mg PO DAILY sitagliptin phosphate 100 mg PO DAILY trazodone 50 mg PO BEDTIME PRN white petrolatum-mineral oil 83-15 % (Artificial Eye Lubricant) 1 appl ophthalmic (eye) BID-QID PRN Tobacco use date assessed: 08/06/24 Fall risk assessment: No Falls in past year Last assessed Fall Risk: 08/06/24 Dental Screening Dental Screen Date: 08/06/24 Did you have a dental visit in the last 12 months?: Yes Did you have a dental problem in the last 6 months where you did not have access to dental care?: No HPI HPI Comments History of Present Illness Details Patient presents to the office for a TCM Hospital discharge follow up visit. Date of admission:07/27/24 Date of discharge:07/28/24 This is a Follow-up from admission at [facility] HPI: 79-year-old male with a past medical his tory of HTN, HLD, DM, paroxysmal AFib on Xarelto, arthritis, recent TAVR at [facility], HX cardiac pacemaker, obesity for a hospital discharge follow-up. Hospital Course/Discharge Summary: Patient presented to [facility] Emergency department on 07/27/24 with chief complaint of difficulty speaking. Patient reports around 1700 on 07/27/24 he had difficulty expressing words. Lasted for about 15 minutes and resolved. Reported his speech was clear at arrival to the hospital. He denied any numbness tingling or focal weakness, headaches or blurry visions, difficulty swallowing. ER course: Per ER team, patient's exam was normal; NIH stroke scale 0. CT head and CT angio head and neck showed no acute findings. Patient already received aspirin, Xarelto, statin prior to arrival. hospital course: Patient was admitted for episode of expressive aphasia which completely resolved after 15 minutes. Was seen by Neurology, felt Differential diagnosis includes TIA versus seizure disorder. Recommendations were to continue Xarelto and to obtain outpatient EEG and follow up with Neurology as outpatient. Patient was seen by physical therapy recommended discharge home with services. Due to recent TAVR unable to obtain MRI. Was continued on statin. For diabetes continued on insulin sliding scale. For paroxysmal AFib continued on Xarelto. Discharged to/Current Location: Home Lives with: Diagnosis: TIA vs Seizure Procedures performed: CT and CTA WNL. Was unable to have MRI due to TAVR unknown if compatible with MRI New medications: No new medications Discontinued medications: None Change medications/dosing: none Pending labs: None Pending diagnostic test: None Any Follow-up Labs required? None Any Follow-up Diagnostic test required? EEG with neurology and ? MRI of brain How are you feeling? Fine, no confusion or difficulty speaking Are you in any pain or discomfort? Left shoulder chronic pain otherwise no new symptoms. Is being seen my orthopedic. Do you have any questions about your condition or discharge instructions? Not at this time Were you able to get your medications filled? no new medications prescribed Do you have any questions about your medications? None at this time Any referrals required? Neurology Were you able to schedule your follow-up appointment? Not yet. Referral sent at this time. If home health was ordered, have they contact you? Yes Any outpatient services, if so, are you scheduled? Yes Are there any additional resources like transportation you might need during her recovery? Not at this time. - VNA? [facility] called patient and pl an to stop by - MORTGAGE LOAN COORDINATOR? Not at this time due to expensiv e per patient $30 an hour they can not afford after a prior referral was sent recently for NUMERICAL CONTROL TOOL PROGRAMMER. - Meals on wheels? Already in place keeley raymundo. Educational need/resources: No additional resources needed What support system do you have? has Parkinson disease, Son, Daughter Friends [facility] Medical History Speaking difficulty TIA (transient ischemic attack) Insomnia Hospital discharge follow-up History of echocardiogram Hypertriglyceridemia Tubular adenoma Dyspnea on exertion Obesity (BMI 30-39.9) Right shoulder injury Right shoulder pain Cough Raynaud disease Edema Aortic stenosis Hyperlipemia HTN (hypertension) Type 2 diabetes mellitus PAF (paroxysmal atrial fibrillation) Surgical History History of colonoscopy (~01/04/20) History of cardiac cath History of cataract surgery Family History Father No problems noted. Mother No problems noted. Paternal Grandfather CVD (cardiovascular disease) Paternal Grandmother No problems noted. Maternal Grandfather CVD (cardiovascular disease) Maternal Grandmother No problems noted. 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 1. Little interest or pleasure in doing things: not at all 2. Feeling down, depressed, or hopeless: not at all 3. Trouble falling or staying asleep, or sleeping too much: not at all 4. Feeling tired or having little energy: not at all 5. Poor appetite or overeating: not at all 6. Feeling bad about yourself - or that you are a failure or have let yourself or your family down: not at all 7. Trouble concentrating on things, such as reading the newspaper or watching television: not at all 8. Moving or speaking so slowly that other people could have noticed. Or the opposite - being so fidgety or restless that you have been moving around a lot more than usual: not at all 9. Thoughts that you would be better off or of hurting yourself in some way: not at all Total score: 0 Depression Screening Interpretation: Negative Depression Screening Done: Yes 00034 - PHQ-9 Billing: Yes Source: Developed by Drs. Anselmo Gill, Kimberly Salazar, Will Kasper and colleagues, with an educational archana from [employer]. Thrive Questionnaire Date Thrive assessed: 07/28/24 AUDIT C Alcohol Use Questionnaire (AUDIT-C) 1. How often do you have a drink containing alcohol?: Monthly or less 2. How many drinks containing alcohol do you have on a typical day when you are drinking?: 1 or 2 3. How often do you have six or more drinks on one occasion?: Never Total Score: 1 Score Reviewed/Action Taken: No JEANA-7 AMB Questionnaire JEANA-7 Date JEANA - 7 assessed: 07/10/24 Feeling nervous, anxious, or on edge: 0 = Not at all Not being able to stop or control worryin = Not at all Worrying too much about different things: 0 = Not at all Trouble relaxin = Not at all Being so restless that it is hard to sit still: 0 = Not at all Becoming easily annoyed or irritable: 0 = Not at all Feeling afraid as if something awful might happen: 0 = Not at all Total JEANA-7 score (0-4 normal; 5-9 mild; 10-14 moderate; 15-21 severe): 0 Source: Developed by Drs. Anselmo Gill, Kimberly Salazar, Will Kasper and colleagues, with an educational archana from [employer]. JEANA-7 Assessment Billing JEANA-7 Assessment Tool: JEANA-7 Assessment 31571 Physical exam (Primary Care) Vital Signs: Last Vital Signs Temp 97.7 F 08/06/24 10:17 Pulse 78 08/06/24 10:17 Resp 16 08/06/24 10:17 BP 142/70 H 08/06/24 10:17 Pulse Ox 94 08/06/24 10:17 Oxygen Delivery Method Room Air 08/06/24 10:17 Vitals signs have been reviewed. BMI result Body Mass Index 32.2 Tobacco/Smoking Status: Tobacco use Status Tobacco use date assessed 08/06/24 08/06/24 10:29 Patient Tobacco Use Status Former Tobacco user 08/06/24 10:29 Tobacco use type Cigarette 08/06/24 10:29 PHQ-9: PHQ-9 Score PHQ-9: Total score 0 08/06/24 10:43 Depression Screening Interpretation: Negative Thrive Assessment: Date of Thrive Assessment Date Thrive assessed 07/28/24 08/06/24 10:29 Const Other: Appearance: Alert. Oriented X3. No acute distress. Head: Normal external exam. Normocephalic. Atraumatic. Eyes: Conjunctiva and sclera normal. Eyelids normal. ENT: MMM. Normal voice. Neck: Normal inspection. Neck supple. FROM. CVS: Normal heart rate and rhythm. Heart sound normal. Respiratory: No respiratory distress. Painless inspiration. Breath sounds normal. No wheezes/rales/rhonchi noted. Chest nontender. No crepitus is noted. No accessory muscle usage noted or decreased air movement noted. No signs of trauma. Back: Full range of motion noted. Skin: Skin warm and dry. Normal skin color. Normal skin turgor. No rashes/lesions/lacerations noted. Neuro: Oriented X 3. Moving all extremities. Normal steady gait with cane. No focal neuro deficits noted. Normal speech. Vascular: + radial pulses b/l. Normal cap refill. No cyanosis noted. Coding Level of Care Code TCM Mod MDM <= 14 Days Complex EM visit Add On G2211 Diagnoses Hospital discharge follow-up Z09 Speaking difficulty R47.9 Additional Codes JEANA-7 Assessment Billing - JEANA-7 Assessment Tool: JEANA-7 Assessment 88379 ([id number]) PHQ-9 - 99498 - PHQ-9 Billing: Yes ([id number]) Assessment & Plan Assessment & Plan (1) Hospital discharge follow-up: Code(s): Z09 - Encounter for follow-up examination after completed treatment for conditions other than malignant neoplasm Category: Medical Plan: Patient to Follow up Neurology. Ambulatory EEG recommended. Referral placed at this time. Order placed at this time. (2) Speaking difficulty: Comment: resolved within 15 minutes on 07/28/24 Code(s): R47.9 - Unspecified speech disturbances Category: Medical Plan: Resolved. Plan - Patient to follow up with neurology. Referral placed today. - EEG Ambulatory order placed. - Patient to speak to Sales Agent Insurance and Neurology about MRI. - VNA to follow patient. - Meals on wheels to continue. - Patient to continue current medication regime. - Patient to follow up with Cardiology this month. - Patient to follow up in 1 month. Orders: Orders EEG ambulatory Today R47.9 - Unspecified speech disturbances Referrals Neurology Referral R47.9 - Unspecified speech disturbances Patient Instructions: - Patient to follow up with neurology. Referral placed today. - EEG Ambulatory order placed. - Patient to speak to Sales Agent Insurance and Neurology about MRI. - VNA to follow patient. - Meals on wheels to continue. - Patient to continue current medication regime. - Patient to follow up with Cardiology this month. - Patient to follow up in 1 month.
--- OUTSIDE RECORDS SUMMARY | 2024-08-06 11:55 | XMS_ITS ---
[facility] Organization [facility] Address [address] [address] Care Team Providers Care Rural Mail Carrier Name Role Phone Anselmo Azevedo MD Primary Care Provider Unavail able Kelsie Coughlin Unavailable [phone] Reed Burt Unavailable [phone] Allergies Allergen (clinical drug ingredient) Drug/Non Drug [...] Active Encounters Encounter Location Date Provider Diagnosis [facility] [address] [address] 06/22/2024 Reed Burt Plan Of Treatment Next Appt Details Provider Name:Kelsie zaragoza, 08/23/2024 01:15:00 PM, [address] [place] [address], [phone], Progress Notes * Thaddeus VELÁSQUEZ JrDOB:1944 (79 yo M)Acc No.[id number]:06/22/2024 Progress Note Patient:?Thaddeus VELÁSQUEZ Jr Provider:?Reed Burt DPM :1945???Age:79 Y???Sex:Male Tanner e:06/22/2024 Address:[address] [place], [place] [id number] Pcp:Anselmo Azevedo MD Subjective: * Chief Complaints: [...] Burt DPM Date:?2024 Generated for Alexandria brock/Skyler/Bronwyn on:?08/06/2024 11:55 AM EDT
--- OUTSIDE RECORDS SUMMARY | 2024-08-06 11:55 | XMS_ITS ---
Author Organization [facility] Address [address] [place] [address] Care Team Providers Care Mechanical Applications Engineer Name Role Phone Anselmo Azevedo MD Primary Care Provider Unavail Kelsie Yepez [phone] REASON FOR VISIT same day rs 06/22/24 Encounters Encounter Location Date Provider Diagnosis [address] [address] 06/22/2024 Kelsie Coughlin Plan Of Treatment Next Appt Details Provider Name:Kelsie zaragoza, 08/23/2024 01:15:00 PM, [address] [place] [address], [phone], Progress Notes * DIDIER Thaddeus Hattie MortonDOB:1944 (79 yo M)Acc No.[id number]:06/22/2024 Patient:?Thaddeus VELÁSQUEZ Jr :1945???Age:79 Y???Sex:Male Address:[address] [place] [address] [place] [address] * true * Date:? Generated for Narcisoi delmy/Skyler/eTransmitting on:?08/06/2024 11:55 AM EDT
--- OUTSIDE RECORDS SUMMARY | 2024-08-06 11:55 | XMS_ITS | Patient Health Record ---
Author Organization [facility] Address [address] [place] [address] Care Team Providers Care Life Sciences Director Name Role Phone Anselmo Azevedo MD Primary Care Provider Unavail able Kelsie Coughlin Unavailable [phone] Helio Guillory Unavailable [phone] Reed Burt Unavailable [phone] Allergies Allergen (clinical drug ingredient) Drug/Non Drug [...] Polyneuropathy due to diabetes mellitus type I (872771680) Type 1 diabetes mellitus with diabetic polyneuropathy (E10.42) Active confirmed Problem Bilateral atherosclerosis of arteries of lower limbs (disorder) (22226129944078821 ) Unspecified atherosclerosis of pa[place]sh[place] arteries of extremities, bilateral legs (I70.203) Active confirmed Problem Chronic ulcer of foot (479470761) Non-pressure chronic ulcer of other part of left foot with fat layer exposed (L97.522) Active confirmed Problem Polyneuropathy due to type 2 diabetes mellitus (183202225) Type 2 diabetes mellitus with diabetic polyneuropathy (E11.42) Active confirmed Problem Acquired hammer toe of right foot (3102707439602695) Other hammer toe(s) (acquired), right foot (M20.41) Active confirmed Problem Acquired hammer toe of left foot (5364911977473013) Other hammer toe(s) (acquired), left foot (M20.42) Active confirmed Vital Signs Blood pressure diastolic 70 mm Hg 03/21/2024 Height 5 ft 10 in in 03/21/2024 Blood pressure systolic 120 mm Hg 03/21/2024 Weight 215 lbs 03/21/2024 BMI 30.85 kg/m2 03/21/2024 Procedures Procedure Date Ordered Date Performed Result Body Sit e 60404-WGYWHTT NAIL, 6 OR MORE 03/21/2024 N/A 15027-QNFX SKIN LESIONS, OVER 4 03/21/2024 N/A Encounters Encounter Location Date Provider Diagnosis [facility] [address] [address] 09/15/2023 Helio Guillory Tinea unguium B35.1 ; Pain in right toe(s) M79.674 ; Pain in left toe(s) M79.675 ; Type 2 diabetes mellitus with diabetic polyneuropathy E11.42 ; Other hammer toe(s) (acquired), left foot M20.42 ; Other hammer toe(s) (acquired), right foot M20.41 ; Unspecified atherosclerosis of [place] arteries of extremities, bilateral legs I70.203 and Localized edema R60.[address] [facility] [address] 12/19/2023 eHlio Guillory Tinea unguium B35.1 ; Pain in right toe(s) M79.674 ; Pain in left toe(s) M79.675 ; Type 2 diabetes mellitus with diabetic polyneuropathy E11.42 ; Other hammer toe(s) (acquired), left foot M20.42 ; Other hammer toe(s) (acquired), right foot M20.41 ; Unspecified atherosclerosis of [place] arteries of extremities, bilateral legs I70.203 and Localized edema R60.[address] [address] 03/21/2024 Kelsie Coughlin Type 2 diabetes mellitus with diabetic polyneuropathy E11.42 and Tinea unguium B35.[address] [address] 06/22/2024 Kelsie Coughlin Assessments Encounter Date Diagnosis [...] (ICD-10 - M20.41) 09/15/2023 Unspecified atherosclerosis of [place] arteries of extremities, bilateral legs (ICD-10 - I70.203) 09/15/2023 Localized edema (ICD-10 - R60.0) 12/19/2023 Unspecified atherosclerosis of pa[place] arteries of extremities, bilateral legs (ICD-10 - I70.203) 12/19/2023 Localized edema (ICD-10 - R60.0) Plan Of Treatment Pending Test Test Name Order Date X ray : Ankle, right 2V 05/13/2014 *Uric Acid, Serum 05/13/2014 *CBC With Differential/Platelet 05/13/19 15 *Sedimentation Rate-Westergren 5 X ray : Foot, right 3V 02/06/2014 X ray : Foot, right 3V 05/13/2014 X ray : Foot, right 3V 01/17/2023 64858-WVPYFZX NAIL, 6 OR MORE 01/16/2018 29442-BCGOQRO NAIL, 6 OR MORE 03/21/2024 06979-JAUHKMH NAIL, 6 OR MORE 04/13/2017 49449-CDJQDRN NAIL, 6 OR MORE 07/18/2017 37626-EEXRKXS NAIL, 6 OR MORE 10/17/2017 81924-APVAUQJ NAIL, 6 OR MORE 04/17/2018 69970-OVGSATV NAIL, 1-5 07/12/2016 23379-HNXXLDR NAIL, 1-5 10/13/2016 28838-DOFGMBG NAIL, 1-5 01/12/2017 81113-RGNZTPY NAIL, 1-5 06/30/2015 70200-NKYCRAU NAIL, 1-5 10/01/2015 77783-LOJVUPM NAIL, 1-5 01/08/2016 62201-RSZSGSB NAIL, 1-5 04/12/2016 12074-VXSUNXN NAIL, 1-5 10/10/2014 62807-BHYFOIL NAIL, 1-5 02/12/2015 66039- Debride <25 sq cm 02/23/2023 20944-GOWTGHB SKIN/TISSUE 03/16/2023 87824-CHBQBQE SKIN/TISSUE 01/10/2023 45119-CGISJTU SKIN/TISSUE 05/05/2023 34124- I&D ABSCESS-COMPLICATED,MULTI 94158-UGML SKIN LESIONS, OVER 4 07/19/19 18 99051-FBUB SKIN LESIONS, OVER 4 04/17/20 18 94363-DSBB SKIN LESIONS, OVER 4 03/21/20 24 22253-BVXB SKIN LESIONS, OVER 4 07/18/19 19 21023-DGMR SKIN LESIONS, OVER 4 10/17/19 19 42010-LICW SKIN LESIONS, OVER 4 01/18/20 19 15152-WHPR SKIN LESIONS, OVER 4 04/18/20 19 49665-TIRN SKIN LESIONS, OVER 4 07/05/19 20 03693-POUX SKIN LESIONS, OVER 4 09/27/19 20 74260-UJDS SKIN LESIONS, OVER 4 12/26/19 20 28796-CQPN SKIN LESIONS, OVER 4 03/19/20 20 81394-TTIQ SKIN LESIONS, OVER 4 06/23/19 21 24981-OUFN SKIN LESIONS, OVER 4 09/23/19 21 66337-NUKZ SKIN LESIONS, OVER 4 12/26/19 21 78806-BFGB SKIN LESIONS, OVER 4 03/30/20 21 49399-RWOX SKIN LESIONS, OVER 4 07/02/19 22 83586-IXFZ SKIN LESIONS, OVER 4 01/17/20 18 68296-CNMV SKIN LESIONS, OVER 4 10/18/19 18 32134-UOHE SKIN LESIONS, OVER 4 01/13/20 17 70378-ZRUV SKIN LESIONS, OVER 4 04/13/20 17 91010-VLCO SKIN LESIONS, OVER 4 02/13/20 15 05488-HRIY SKIN LESIONS, OVER 4 06/12/19 15 48030-XVIM SKIN LESIONS, OVER 4 10/11/19 15 81809-FCQG SKIN LESIONS, OVER 4 04/17/20 14 28005-YHLW SKIN LESIONS, OVER 4 04/12/20 16 57885-KKNC SKIN LESIONS, OVER 4 01/08/20 16 83743-LKBO SKIN LESIONS, OVER 4 10/01/19 16 01766-YTYL SKIN LESIONS, OVER 4 06/30/19 16 08513-NASK SKIN LESIONS, OVER 4 07/13/19 17 64926-DPRU SKIN LESIONS, OVER 4 10/14/19 17 43087-GPHM SKIN LESIONS, 2 TO 4 02/07/20 14 99199-GGUM NAIL(S) 02/06/2014 93548-FYFN NAIL(S) 04/17/2014 15759-VDOR NAIL(S) 10/10/2014 74971-KGCX NAIL(S) 06/12/2014 21524-ECTW NAIL(S) 02/12/2015 99044-FYHA NAIL(S) 07/12/2016 97811-NQBE NAIL(S) 01/12/2017 65308-VTGP NAIL(S) 10/13/2016 33295-LYVV NAIL(S) 06/30/2015 96913-LWWL NAIL(S) 10/01/2015 48642-RYBJ NAIL(S) 01/08/2016 26329-SFIN NAIL(S) 04/12/2016 13221-ZLTMFPIA OF HEMATOMA/FLUID 018 12558-CRZUIRMD OF HEMATOMA/FLUID 023 Next Appt Details Provider Name:Kelsie zaragoza, 08/23/2024 01:15:00 PM, [address] [place] [address], [place], [address], Insurance Providers Payer Name Payer Address Payer Phone Subscriber Number Group Number Insured Name Patient Relationship to Insured Coverage Start Date Coverage End Date Medicare National [employer] [address] [place] [address] [id number] Thaddeus Velsáquez Self - patient is the insured [address] [place] [address] [address] [place] [address] [id number] Thaddeus Velásquez Self - patient is the insured Medical (General) History Medical History History ICD Code Arthritis Back,Hip,and Knee pain Broken bones Cataracts Chicken pox Measles Mumps type II diabetes Neuropathy Sciatica pericarditis Surgical History Surgery Date(Month/Year) cystoscopy cataract 2010 Hospitalization History Reason Date(Month/Year[place] [facility] [place] [facility] [place]. 11/08/[place] [facility] [place] was light headed, sweaty. 03/2016
--- OUTSIDE RECORDS SUMMARY | 2024-08-06 11:55 | XMS_ITS ---
Author Organization [facility] Address [address] [place] [address] Care Team Providers Care Net Programmer Name Role Phone Roberto Carlos (RETIRED) Anselmo [...] 08/11/2023 Encounters Encounter Location Date Provider Diagnosis [facility] [address] [place] [address] 08/11/2023 Miguel Saha Jr Gastroesophageal reflux disease, [...] will continue to use Pepto-Bismol or other qvso-zmv-uptgl er antacids and simethicone as needed. 08/11/2023 [...] will continue to use Pepto-Bismol or other omho-qyk-yusoz er antacids and simethicone as needed. 08/11/2023 [...] will continue to use Pepto-Bismol or other wmlq-ldt-nrjml er antacids and simethicone as needed. Plan Of Treatment Treatment Notes Assessment Notes Gastroesophageal reflux dise ase, unspecified whether esophagitis present Gas - flatulence material was printed Next Appt Details Follow Up: 1 Year, Reason: Provider Name:Miguel soto Jr, 08/09/2024 01:15:00 PM, [address] [facility], [address], [place], [address], Progress Notes * MELY KAUR WDOB: [birth year] (78 yo M)Acc No.[id number]:08/11/2023 Progress Notes Patient:?MELY KAUR W Provider:?Miguel Saha MD :1945???Age:78 Y???Sex:Male Tanner e:08/11/2023 Address:[address] [place], [place] [id number] Pcp:Anselmo Azevedo, DO Subjective: * Chief Complaints: [...] will continue to use Pepto-Bismol or other wdhp-upd-okzgjeq antacids and simethicone as needed. Plan: * Treatment: * Procedure Codes:?G9903 Pt sc rn tbco id as non user, G9744 PATIENT NOT ELIG D/T ACTIVE DX HTN * Preventive Medicine:? ??Counseling:?Care goal follow-up plan:?Above Normal BMI Follow-up?Giving encouragement to exercise,?BMI management provided?Yes.? * Follow Up:?1 Year * * Sign off status: Completed true * Provider:?Miguel Saha MD Date:?0 08/11/2023 Generated for Printi delmy/Skyler/eTransmitting on:?08/06/2024 11:55 AM EDT History and Physical Notes * [...]
--- OUTSIDE RECORDS SUMMARY | 2024-08-06 11:55 | XMS_ITS | Patient Health Record ---
Author Organization [facility] Address [address] [place] [address] Care Team Providers Care Multi Spindle Operator Name Role Phone Roberto Carlos (RETIRED) [...] Problem Status W/U Status Risk Notes Problem 440374852 Colon cancer screening (Z12.11) Active confirmed Problem 908296513 Change in bowel habits (R19.4) Active confirmed Problem 33972971 Diarrhea, unspecified type (R19.7) Active confirmed Problem 246834867 Gas bloat syndro me (K92.89) Active confirmed Problem 449741607 Gastroesophageal reflux disease, unspecified whether esophagitis present (K21.9) Active confirmed Vital Signs Blood pressure diastolic 00 mm Hg 08/11/2023 Height 70.5 in 08/11/2023 Blood pressure systolic 00 mm Hg 08/11/2023 Weight 220 lbs 08/11/2023 BMI 31.12 kg/m2 08/11/2023 Encounters Encounter Location Date Provider Diagnosis [facility] [address] [facility] [address] [place] [address] 08/11/2023 Miguel Saha Jr Gastroesophageal reflux disease, [...] will continue to use Pepto-Bismol or other stpr-qcx-hftuq er antacids and simethicone as needed. 08/11/2023 [...] will continue to use Pepto-Bismol or other yjjc-ozd-hrsif er antacids and simethicone as needed. 08/11/2023 [...] will continue to use Pepto-Bismol or other wcfz-pcw-phjrr er antacids and simethicone as needed. Plan [...] Provider Name:Miguel soto Jr, 08/09/2024 01:15:00 PM, [address] [place] [address], [address], [place], [address], Insurance Providers Payer Name Payer Address Payer Phone Subscriber Number Group Number Insured Name Patient Relationship to Insured Coverage Start Date Coverage End Date MEDICARE OF [employer] [address] [place] [address] [id number] MELY KAUR Self - patient is the insured [facility] [address] [place] [phone] [id number] MELY KAUR Self - patient is the insured Medical (General) History Medical History History ICD Code Colonoscopy 01/04/20, tubular adenoma, further screening is not recommended based on age. type II diabetes elevated Cholesterol pericarditis Afib hypertension Aortic stenosis Surgical History Surgery Date(Month/Year) tonsillectomy cataract-lens implants toe nail removal due to infection
--- OUTSIDE RECORDS SUMMARY | 2024-08-06 11:56 | XMS_ITS ---
Author Organization [facility] Address [address] [place] [address] Care Team Providers Care Government Affairs Specialist Name Role Phone Anselmo Azevedo MD Primary Care Provider Unavail elisabeth BucioakerKelsie Unavailable [phone] Allergies Allergen (clinical drug ingredient) Drug/Non Drug [...] Polyneuropathy due to diabetes mellitus type I ([id number]) Type 1 diabetes mellitus with diabetic polyneuropathy (E10.42) Active confirmed Vital Signs Height 5 ft 10 in in 03/21/2024 Weight 215 lbs 03/21/2024 BMI 30.85 kg/m2 03/21/2024 Blood pressure systolic 120 mm Hg 03/21/20 24 Blood pressure diastolic 70 mm Hg 024 Procedures Procedure Date Ordered Date Performed Result Body Sit e 77958-HNYWZPB NAIL, 6 OR MORE 03/21/2024 N/A 44175-CVZF SKIN LESIONS, OVER 4 03/21/2024 N/A Encounters Encounter Location Date Provider Diagnosis [facility] [place] [place] [address] 03/21/2024 Kelsie Coughlin Type 2 diabetes mellitus with diabetic polyneuropathy E11.42 and Tinea unguium B35.1 Assessments Encounter Date Diagnosis (ICD Code) Assessment Notes Treatment Notes Treatment Clinical Notes Section Notes 03/21/2024 Type 2 diabetes mellitus with diabetic polyneuropathy (ICD-10 - E11.42) 03/21/2024 Tinea unguium (ICD-10 - B35.1) Plan Of Treatment Pending Test Test Name Order Date 62038-VOQSKCN NAIL, 6 OR MORE 03/21/2024 74815-ZJQG SKIN LESIONS, OVER 4 03/21/20 Next Appt Details Follow Up: 3 Months, Reason: Provider Name:Kelsie zaragoza, 08/23/2024 01:15:00 PM, [address] [facility], [place], [address], Procedure Notes * Category Sub-Category Detail Notes [...] use of a nail nipper and/or dremel-type universal grinder operator, to a more viable healthy nail plate or bed tissue 6-10. Silver nitrate used for any petechial bleeding as necessary. Definitive antifungal treatment options have been reviewed and discussed with the patient. The patient chooses, no pharmaceutical tx - 83553 Keratoma Treatment Parring or Cutting o f Benign Hyperkeratotic Lesion(s) (-57) More than 4 Lesions - The Benign hyperkeratotic lesions, as described in exam, were pared, and/or cut utilizing a sterile 15 blade, tissue nippers, and/or dremel - 42129 Progress Notes * Thaddeus VELÁSQUEZ JrDOB:1944 (79 yo M)Acc No.[id number]:03/21/2024 Progress Note Patient:?Thaddeus VELÁSQUEZ Jr Provider:?Kelsie Coughlin DPM :1945???Age:79 Y???Sex:Male Tanner e:03/21/2024 Address:[address] [place], [place] [address] Pcp:Anselmo Azevedo MD Subjective: * Chief Complaints: [...] History:?cystoscopy cataract 2010 * Hospitalization/Major Diagno stic Procedure:[place] [place] light headed, sweaty. 03/[place] [place]. 11/08/[place] [place] bleed 2019 * Family History:?Mother: dece [...] use of a nail nipper and/or dremel-type universal grinder operator, to a more viable healthy nail plate or bed tissue 6-10. Silver nitrate used for any petechial bleeding as necessary. Definitive antifungal treatment options have been reviewed and discussed with the patient. The patient chooses, no pharmaceutical tx - 72159.?Keratoma Treatment:?Parring or Cutting of Benign Hyperkeratotic Lesion(s)?(-57) More than 4 Lesions - The Benign hyperkeratotic lesions, as described in exam, were pared, and/or cut utilizing a sterile 15 blade, tissue nippers, and/or dremel - 83834.? * Procedure Codes:?55267 DEBRI DE NAIL, 6 OR MORE, Modifiers: XS 04117 TRIM SKIN LESIONS, OVER 4, Modifiers: XS * Follow Up:?3 Months * Images: * Sign off status: Completed true * Provider:?Kelsie Coughlin DPM Date:?1 05/21/2023 Generated for Alexandria brock/Skyler/Oswaldoitting on:?08/06/2024 11:55 AM EDT History and Physical Notes * HPI (History of Present Illness) Category Sub-Category Detail Notes Category Not es At Risk footcare Pt States Last PCP Visit: Date: 4 Examination Category Sub-Category Detail Notes Category Not [...]
== END 2024-08-06 10:53 | disposition home or self-care (01) ==
LOC: HO.HMCSH 10:12
PROVIDERS: PCP Internal Medicine; Visit Provider Physician Assistant Medical
DX: R47.9 Unspecified speech disturbances (principal); Z09 Encounter for follow-up examination after completed treatment for conditions other than malignant neoplasm

== ENCOUNTER → 2024-08-06 10:12 | Outpatient (BNVA) | payer MEDICARE, OTHER, SELFPAY | PROVIDERS: PCP Internal Medicine; Visit Provider Physician Assistant Medical | DX: I10 Essential (primary) hypertension (principal); E78.5 Hyperlipidemia, unspecified; E11.9 Type 2 diabetes mellitus without complications; I48.0 Paroxysmal atrial fibrillation; E66.9 Obesity, unspecified; R47.9 Unspecified speech disturbances; Z09 Encounter for follow-up examination after completed treatment for conditions other than malignant neoplasm; Z68.32 Body mass index [BMI] 32.0-32.9, adult; Z95.0 Presence of cardiac pacemaker; Z79.899 Other long term (current) drug therapy | CPT/HCPCS: 96127; 99495 ==

== ENCOUNTER → 2024-08-11 23:59 | Outpatient (BNV) | payer MEDICARE, OTHER, SELFPAY ==
--- NOTE | 2024-08-17 11:42 | MHC.OFFVIS ---
Intake Visit Reasons: Remote device check- Medtronic Allergies prednisone Allergy (Unknown, Verified 08/06/24 13:35) GI PFSH Medical History Aortic stenosis Cardiac pacemaker in situ Speaking difficulty TIA (transient ischemic attack) Insomnia Hospital discharge follow-up History of echocardiogram Hypertriglyceridemia Tubular adenoma Dyspnea on exertion Obesity (BMI 30-39.9) Right shoulder injury Right shoulder pain Cough Raynaud disease Edema Hyperlipemia HTN (hypertension) Type 2 diabetes mellitus PAF (paroxysmal atrial fibrillation) Surgical History S/P TAVR (transcatheter aortic valve replacement) History of colonoscopy (~01/04/20) History of cardiac cath History of cataract surgery Family History Father No problems noted. Mother No problems noted. Paternal Grandfather CVD (cardiovascular disease) Paternal Grandmother No problems noted. Maternal Grandfather CVD (cardiovascular disease) Maternal Grandmother No problems noted. 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 Pacemaker function is adequate 68805-Urtdru Cardiac Device Interrogation, pacemaker Procedure code (CPT) selection complete Assessment & Plan Assessment & Plan (1) Cardiac pacemaker in situ: Comment: Medtronic dual chamber for post TAVR AV block and tachy-yuridia. 06/2024 Code(s): Z95.0 - Presence of cardiac pacemaker Category: Medical Plan: See above Coding Level of Care Code Procedure Only Diagnoses Cardiac pacemaker in situ Z95.0 CPT Codes Cardiac Device Check - Cardiac Device 12: 96192-Dufbua Cardiac Device Interrogation, pacemaker ([id number])
== END ==
PROVIDERS: PCP Internal Medicine; Visit Provider Internal Medicine Cardiovascular Disease
DX: I44.30 Unspecified atrioventricular block (principal); Z95.0 Presence of cardiac pacemaker
CPT/HCPCS: 93294

== ENCOUNTER 2024-08-16 13:03 | Outpatient (AMB) | payer MEDICARE, OTHER, SELFPAY ==
[2024-08-16 13:04] VITALS: BP 126/70; PULSE 63; BMI 31.3
--- NOTE | 2024-08-16 13:04 | MHC.OFFVIS ---
Vital Signs 08/16/24 13:04 Height 5 ft 9 in Weight 211 lb 10.3 oz BMI 31.3 BP 126/70 Blood Pressure Location Lt brachial Position Sitting Pulse 63 Intake Visit Reasons: 4 mth f/up Intake Note: Follow-up after TAVR feeling ok would like to talk about a pacemaker Line Service Technician Required: No Allergies prednisone Allergy (Unknown, Verified 08/06/24 13:35) GI Medication List - Last Reconciled 08/16/24 by Bolivar Helton MD acetaminophen 650 mg PO Q8H PRN albuterol sulfate 90 mcg/actuation 1 inh inhalation QID PRN atorvastatin 40 mg PO BEDTIME cholecalciferol (vitamin D3) 25 mcg PO DAILY ferrous sulfate 325 mg PO DAILY gabapentin 300 mg PO BID metoprolol succinate ER 25 mg PO DAILY omeprazole 20 mg PO DAILY psyllium husk (Fiber (psyllium husk)) 0.4 grams PO DAILY rivaroxaban (Xarelto) 20 mg PO DAILY sitagliptin phosphate 100 mg PO DAILY trazodone 50 mg PO BEDTIME PRN white petrolatum-mineral oil 83-15 % (Artificial Eye Lubricant) 1 appl ophthalmic (eye) BID-QID PRN HPI Comments Details: Thaddeus comes for follow-up. Event transcatheter aortic valve replacement with 34 mm bioprosthetic valve in June for severe aortic stenosis. Since then he says that he feels better. He was less fatigue and shortness of breath although he is somewhat hesitant to report. Denies any orthopnea, PND. 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 Patient was currently on oral anticoagulation therapy. On remote monitoring was noted to have nonsustained VT and metoprolol 25 mg was prescribed. Denies any prolonged palpitation irregular heartbeat. No lightheadedness, syncope. His recent echocardiogram shows normally function bioprosthetic aortic valve. He said he currently still has [facility] at home for rehab and med care. [facility] Medical History Aortic stenosis Cardiac pacemaker in situ Speaking difficulty TIA (transient ischemic attack) Insomnia Hospital discharge follow-up History of echocardiogram Hypertriglyceridemia Tubular adenoma Dyspnea on exertion Obesity (BMI 30-39.9) Right shoulder injury Right shoulder pain Cough Raynaud disease Edema Hyperlipemia HTN (hypertension) Type 2 diabetes mellitus PAF (paroxysmal atrial fibrillation) Surgical History S/P TAVR (transcatheter aortic valve replacement) History of colonoscopy (~01/04/20) History of cardiac cath History of cataract surgery Family History Father No problems noted. Mother No problems noted. Paternal Grandfather CVD (cardiovascular disease) Paternal Grandmother No problems noted. Maternal Grandfather CVD (cardiovascular disease) Maternal Grandmother No problems noted. 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 Cognitive needs: Yes (cane) Hearing needs: Yes (b/l hearing aids) Vision needs: Yes (reading glasses) Review of Systems Const Denies chills, Denies fatigue, Denies fever(s), Denies frequent falls, Denies weakness, Denies weight gain and Denies weight loss ENT Denies dizziness Card Denies chest pain, Denies leg edema, Denies lightheadedness, Denies palpitations, Denies dyspnea, Denies dyspnea on exertion, Denies orthopnea and Denies other (loss of consciousness) Resp Denies cough, Denies dyspnea and Denies dyspnea on exertion GI Denies hematochezia and Denies change in stool character Musc Denies abnormal gait, Denies muscle weakness, Denies numbness, Denies radiating pain into limb and Denies tingling Neuro Denies abnormal gait, Denies dizziness, Denies frequent falls, Denies numbness, Denies tingling and Denies weakness Endo Denies fatigue and Denies palpitations Physical Exam Vital Signs: Last Vital Signs Pulse 63 08/16/24 13:04 BP 126/70 08/16/24 13:04 BMI result Body Mass Index 31.3 Const General: cooperative, comfortable, no acute distress, alert and awake Nutritional Appearance: overweight and other (Frail elderly man) Orientation/consciousness: patient oriented x3 Limitations: ambulation with cane Neck Neck: Yes trachea midline, Yes supple and Yes no JVD Resp Effort & Inspection: normal respiratory effort Auscultation: clear to auscultation bilaterally Cardio Jugular venous distension: no JVD Palpation: normal PMI Rate: regular rate Rhythm: regular rhythm Heart sounds: S1 normal heart sound present, S2 normal heart sound present, no click, no gallops and no murmurs GI Auscultation: normal bowel sounds Skin General skin exam: no rashes or lesions noted and ecchymosis Neuro General: patient oriented x3 and no focal motor deficits Extrem General: Yes no clubbing, cyanosis or edema Psych Appearance: grossly normal Office Procedures Cardiac Device Check Cardiac Device Check Details: Dual-chamber Medtronic pacemaker in place programmed in MVP mode at 60 beats per minute. Minimal atrial pacing. Ventricular pacing about 15% of time. One episode of nonsustained ventricular tachycardia noted. No atrial fibrillation noted. Atrial ventricular sensing is excellent. Atrial and ventricular pacing thresholds excellent and reprogrammed to chronic thresholds to enhance battery life. Pacing lead impedance is stable. Battery life is 16 years 11498-PS Cardiac Device Check, pacemaker dual lead Procedure code (CPT) selection complete Assessment & Plan Assessment & Plan (1) S/P TAVR (transcatheter aortic valve replacement): Comment: 07/05/24. 34 mm Evolut Code(s): Z95.2 - Presence of prosthetic heart valve Category: Surgical Plan: Status post transcatheter aortic valve replacement well functioning valve with improved symptoms as per him. For him to phase 2 cardiac rehabilitation. Continue full oral anticoagulation, currently on Xarelto. SBE prophylaxis as per ACC/aha guidelines. (2) PAF (paroxysmal atrial fibrillation): Code(s): I48.0 - Paroxysmal atrial fibrillation Category: Medical Plan: Paroxysmal atrial fibrillation has remained suppressed. No recurrent events. Continue metoprolol therapy. Will maximize metoprolol therapy avoidance of stimulants was discussed. Will continue monitor by remote telemetry. Currently on full oral anticoagulation Xarelto. Semi annual renal function test should be pursued. No indication for antiarrhythmic drug therapy. (3) NSVT (nonsustained ventricular tachycardia): Code(s): I47.29 - Other ventricular tachycardia Category: Medical Plan: Nonsustained ventricular tachycardia noted without significant coronary disease and preserved LV ejection fraction. Will further maximize metoprolol to 50 mg daily. Advised to avoid stimulants. Will continue monitor by pacer telemetry. (4) Cardiac pacemaker in situ: Comment: Medtronic dual chamber for post TAVR AV block and tachy-yuridia. 06/2024 Code(s): Z95.0 - Presence of cardiac pacemaker Category: Medical Plan: Cardiac pacemaker in-situ, working well. Reprogrammed for adequate function. Will follow up in 6 months time and follow remotely. Follow up in the clinic in 6 months time, sooner p.r.n.. Thank you for allowing me to partake in his care Orders: Orders Cardiac Rehab Today Z95.2 - Presence of prosthetic heart valve Medications: New metoprolol succinate ER (Toprol XL) 50 mg PO DAILY 30 tabs 5RF Discontinued metoprolol succinate ER Discontinued Reason: Doctor's Order 25 mg PO DAILY 30 tabs 4RF Coding Level of Care Code Est Pt Level 4 (42790) Complex EM visit Add On G2211 Diagnoses S/P TAVR (transcatheter aortic valve replacement) Z95.2 PAF (paroxysmal atrial fibrillation) I48.0 NSVT (nonsustained ventricular tachycardia) I47.29 Cardiac pacemaker in situ Z95.0 CPT Codes Cardiac Device Check - Cardiac Device 2: 95579-CR Cardiac Device Check, pacemaker dual lead ([id number])
== END 2024-08-16 13:28 | disposition home or self-care (01) ==
PROVIDERS: PCP Internal Medicine; Visit Provider Internal Medicine Cardiovascular Disease
DX: I48.0 Paroxysmal atrial fibrillation (principal); Z95.2 Presence of prosthetic heart valve; I47.29 Other ventricular tachycardia; Z95.0 Presence of cardiac pacemaker
CPT/HCPCS: 93280; 99214; G2211

== ENCOUNTER → 2024-08-16 13:03 | Outpatient (BNVA) | payer MEDICARE, OTHER, SELFPAY | PROVIDERS: PCP Internal Medicine; Visit Provider Internal Medicine Cardiovascular Disease | DX: Z45.018 Encounter for adjustment and management of other part of cardiac pacemaker (principal); I48.0 Paroxysmal atrial fibrillation; I47.29 Other ventricular tachycardia; Z95.2 Presence of prosthetic heart valve | CPT/HCPCS: 93280; 99212 ==

== ENCOUNTER 2024-08-23 15:10 | Outpatient (REF) | payer MEDICARE, OTHER, SELFPAY ==
[2024-08-23 16:11] LABS: Appearance Urine Clear; Color Urine Yellow; Glucose Urine UA Negative (Negative); Leukocyte Esterase Urine Negative (Negative); Nitrite Urine Negative (Negative); Specific Gravity - Urine 1.015 (1.005-1.025); Urine Blood Negative (Negative); Urine Ketones Trace mg/dL (Negative); Urine Protein Negative (Neg-Trace)
[2024-08-23 16:17] LABS: Bacteria Urine None Seen (None Seen); Hyaline Casts Urine 0-2 /LPF (0-2); RBC Urine 0-2 /HPF (0-2); Squamous Epithelial Cell Urine 0-2 /HPF (0-2); WBC Urine 0-5 /HPF (0-5)
--- OUTSIDE RECORDS SUMMARY | 2024-08-23 18:20 | XMS_ITS | Patient Health Record ---
[facility] Address [address] [place] [address] Care Team Providers Care Products Mechanical Design Engineer Name Role Phone Frank Emiliano Primary Care Provider Kelsie Coughlin Unavailable [phone] Helio Guillory Unavailable [phone] Reed Burt Unavailable [phone] Allergies Allergen (clinical drug ingredient) Drug/Non Drug [...] days 01/17/2023 Not-Taking glyburide 5mg Not-Ta nikko Metformin & Diet Manage Prod 1,000mg twice a day Not-Taking Amoxicillin-Pot Clavulanate 875 875-125 MG one tab Orally every 12 hrs for 10 day(s) 01/10/2023 Not-Taking amLODIPine Besylate Active Voltaren 1 % as directed Externally Active Simvastatin 40 MG Orally No t-Taking Atorvastatin Calcium 40 MG 1 tablet Orally Once a day for 30 day(s) Active Colchicine 0.6 MG Orally No t-Taking Metoprolol Succinate ER 25 MG 1 tablet Orally Once a day Not-Taking Januvia Active Extra-Depth Diabetic Shoes with 3 Pair Custom heat-molded multi-density innersoles . for 1 year . Dx:niddm with neuropathy, foot deformity and preulcerative skin lesions for . 02/06/2014 Not-Taking Furosemide 20 MG Orally Act esha Aspirin Not-Taking Xarelto 20 MG Orally Active Colcrys 0.6 MG 1 tablet Orally Once a day for 30 day(s) 05/13/2014 Not-Taking Multi Vitamin/Minerals Active Extra-Depth Diabetic Shoes with 3 Pair Custom heat-molded multi-density innersoles . for 1 year . Dx:niddm with neuropathy, foot deformity and preulcerative skin lesions for . Not-Taking Immunizations Vaccine Route Administration Date Status Comme [...] date) Never Smoker NA - NA Tobacco use other than smoking: Question Answer Notes Are you an other tobacco user? No Tobacco Control (Standard) Question Answer Notes Tobacco use: Nonsmoker Additional Findings: Tobacco non-user Current no nsmoker AUDIT-C (Standard) Question Answer Notes Did you have a drink containing alcohol in the p ast year? No Points 0 Interpretation Negative Section Notes: \ \ \ \ \ \ \ \ \ \ \ \ \ \ \ \ \ \ \ \ \ \ \ \ \ \ \ \ \ \ \ \ \ \ \ \ \ \ \ \ Problems Problem Type SNOMED Code ICD Code Onset Dates Problem Status W/U Status Risk Notes Problem Polyneuropathy due to type 2 diabetes mellitus (733492923) Type 2 diabetes mellitus with diabetic polyneuropathy (E11.42) Active confirmed Problem Acquired hammer toe of right foot (9309081830486226 ) Other hammer toe(s) (acquired), right foot (M20.41) Active confirmed Problem Acquired hammer toe of left foot (8280351488208734 ) Other hammer toe(s) (acquired), left foot (M20.42) Active confirmed Vital Signs Blood pressure diastolic 70 mm Hg 08/23/2024 Height 5 ft 10 in in 08/23/2024 Blood pressure systolic 130 mm Hg 08/23/2024 Weight 215 lbs 08/23/2024 BMI 30.85 kg/m2 08/23/2024 Procedures Procedure Date Ordered Date Performed Result Body Sit e 98933-VOWFMVH NAIL, 6 OR MORE 03/21/2024 N/A 52138-JNPT SKIN LESIONS, OVER 4 03/21/2024 N/A 08026-DRUVRUU NAIL, 6 OR MORE 08/23/2024 N/A Encounters Encounter Location Date Provider Diagnosis [address] [address] 09/15/2023 Helio Guillory Tinea unguium B35.1 ; Pain in right toe(s) M79.674 ; Pain in left toe(s) M79.675 ; Type 2 diabetes mellitus with diabetic polyneuropathy E11.42 ; Other hammer toe(s) (acquired), left foot M20.42 ; Other hammer toe(s) (acquired), right foot M20.41 ; Unspecified atherosclerosis of [place] arteries of extremities, bilateral legs I70.203 and Localized edema R60.[address] [address] 12/19/2023 Helio Guillory Tinea unguium B35.1 ; Pain in right toe(s) M79.674 ; Pain in left toe(s) M79.675 ; Type 2 diabetes mellitus with diabetic polyneuropathy E11.42 ; Other hammer toe(s) (acquired), left foot M20.42 ; Other hammer toe(s) (acquired), right foot M20.41 ; Unspecified atherosclerosis of [place] arteries of extremities, bilateral legs I70.203 and Localized edema R60.[address] [address] 03/21/2024 Kelsie Coughlin Type 2 diabetes mellitus with diabetic polyneuropathy E11.42 and Tinea unguium B35.1 [facility] [address] [address] 08/23/2024 Kelsie Coughlin Type 2 diabetes mellitus with diabetic polyneuropathy E11.42 ; Tinea unguium B35.1 ; Other hammer toe(s) (acquired), right foot M20.41 and Other hammer toe(s) (acquired), left foot M20.[address] [address] 06/22/2024 Kelsie Coughlin Assessments Encounter Date Diagnosis (ICD Code) Assessment Notes Treatment Notes Treatment Clinical Notes Section Notes 09/15/2023 Tinea unguium (ICD-10 - B35.1) 09/15/2023 Pain in right toe(s) (ICD-10 - M79.674) 12/19/2023 Tinea unguium (ICD-10 - B35.1) 03/21/2024 Type 2 diabetes mellitus with diabetic polyneuropathy (ICD-10 - E11.42) 03/21/2024 Tinea unguium (ICD-10 - B35.1) 08/23/2024 Type 2 diabetes mellitus with diabetic polyneuropathy (ICD-10 - E11.42) 08/23/2024 Tinea unguium (ICD-10 - B35.1) 12/19/2023 Pain in right toe(s) (ICD-10 - M79.674) 09/15/2023 Pain in left toe(s) (ICD-10 - M79.675) 09/15/2023 Type 2 diabetes mellitus with diabetic polyneuropathy (ICD-10 - E11.42) 12/19/2023 Pain in left toe(s) (ICD-10 - M79.675) 08/23/2024 Other hammer toe(s) (acquired), right foot (ICD-10 - M20.41) Patient Educated with: DIABETIC FOOT CARE INSTRUCTIONS. pdf (DIABETIC FOOT CARE INSTRUCTIONS. pdf) 08/23/2024 Other hammer toe(s) (acquired), left foot (ICD-10 - M20.42) 12/19/2023 Type 2 diabetes mellitus with diabetic polyneuropathy (ICD-10 - E11.42) 09/15/2023 Other hammer toe(s) (acquired), left foot (ICD-10 - M20.42) 09/15/2023 Other hammer toe(s) (acquired), right foot (ICD-10 - M20.41) 12/19/2023 Other hammer toe(s) (acquired), left foot (ICD-10 - M20.42) 12/19/2023 Other hammer toe(s) (acquired), right foot (ICD-10 - M20.41) 09/15/2023 Unspecified atherosclerosis of [place] arteries of extremities, bilateral legs (ICD-10 - I70.203) 09/15/2023 Localized edema (ICD-10 - R60.0) 12/19/2023 Unspecified atherosclerosis of [place] arteries of extremities, bilateral legs (ICD-10 - I70.203) 12/19/2023 Localized edema (ICD-10 - R60.0) Plan Of Treatment Pending Test Test Name Order Date X ray : Ankle, right 2V 05/13/2014 *Uric Acid, Serum 05/13/2014 *CBC With Differential/Platelet 05/13/19 15 *Sedimentation Rate-Westergren 5 X ray : Foot, right 3V 02/06/2014 X ray : Foot, right 3V 05/13/2014 X ray : Foot, right 3V 01/17/2023 76128-NGQKZMS NAIL, 6 OR MORE 01/16/2018 22885-WCIINHX NAIL, 6 OR MORE 03/21/2024 99764-CVRWSAV NAIL, 6 OR MORE 08/23/2024 77314-BFBRGLP NAIL, 6 OR MORE 04/13/2017 24466-UXLCLIJ NAIL, 6 OR MORE 07/18/2017 11988-LYLDFSS NAIL, 6 OR MORE 10/17/2017 38362-XAHWLKL NAIL, 6 OR MORE 04/17/2018 61688-SKWXGOL NAIL, -5 07/12/2016 48185-YDZRDZF NAIL, -10/13/2016 44719-NBYOGBO NAIL, -01/12/2017 90456-DLVGCNA NAIL, -06/30/2015 99828-AHKEGVW NAIL, -10/01/2015 69634-TKFBEBC NAIL, -01/08/2016 14885-WRTKICY NAIL, -5 04/12/2016 07358-HGLMPTE NAIL, 1-5 10/10/2014 23079-NJWUZIC NAIL, 1-5 02/12/2015 76319- Debride <25 sq cm 02/23/2023 12381-UWFLXSY SKIN/TISSUE 03/16/2023 01543-BUUNBCP SKIN/TISSUE 01/10/2023 49269-COAIRZC SKIN/TISSUE 05/05/2023 12922- I&D ABSCESS-COMPLICATED,MULTI 56002-KQRI SKIN LESIONS, OVER 4 07/19/19 18 33497-VVDC SKIN LESIONS, OVER 4 04/17/20 18 18079-UVPK SKIN LESIONS, OVER 4 03/21/20 24 31888-KFFP SKIN LESIONS, OVER 4 07/18/19 19 14825-XQAU SKIN LESIONS, OVER 4 10/17/19 19 97055-OHDK SKIN LESIONS, OVER 4 01/18/20 19 76602-HJED SKIN LESIONS, OVER 4 04/18/20 19 42324-OHKB SKIN LESIONS, OVER 4 07/05/19 20 46381-SHMZ SKIN LESIONS, OVER 4 09/27/19 20 44867-RUEE SKIN LESIONS, OVER 4 12/26/19 20 62642-ELME SKIN LESIONS, OVER 4 03/19/20 20 99483-ORLS SKIN LESIONS, OVER 4 06/23/19 21 10476-WVTJ SKIN LESIONS, OVER 4 09/23/19 21 40636-BLKQ SKIN LESIONS, OVER 4 12/26/19 21 10145-CFBE SKIN LESIONS, OVER 4 03/30/20 21 73125-YZTU SKIN LESIONS, OVER 4 07/02/19 22 41873-CLWS SKIN LESIONS, OVER 4 01/17/20 18 58050-NLVD SKIN LESIONS, OVER 4 10/18/19 18 79869-UKUS SKIN LESIONS, OVER 4 01/13/20 17 39032-MAHP SKIN LESIONS, OVER 4 04/13/20 17 92535-RHDF SKIN LESIONS, OVER 4 02/13/20 15 02018-YRUU SKIN LESIONS, OVER 4 06/12/19 15 21718-QGHR SKIN LESIONS, OVER 4 10/11/19 15 07525-FDGD SKIN LESIONS, OVER 4 04/17/20 14 05116-UPVC SKIN LESIONS, OVER 4 04/12/20 16 21662-CTPR SKIN LESIONS, OVER 4 01/08/20 16 40830-LWBR SKIN LESIONS, OVER 4 10/01/19 16 25031-ZXUO SKIN LESIONS, OVER 4 06/30/19 16 75132-MHDO SKIN LESIONS, OVER 4 07/13/19 17 04447-YKYT SKIN LESIONS, OVER 4 10/14/19 17 32335-WWBF SKIN LESIONS, 2 TO 4 02/07/20 14 98447-RVMT NAIL(S) 02/06/2014 36189-SVVL NAIL(S) 04/17/2014 74856-YHQM NAIL(S) 10/10/2014 66485-UKNI NAIL(S) 06/12/2014 69682-MXEQ NAIL(S) 02/12/2015 64729-BYJB NAIL(S) 07/12/2016 65835-GWHP NAIL(S) 01/12/2017 24095-EYRI NAIL(S) 10/13/2016 16631-NJQI NAIL(S) 06/30/2015 75818-QQIW NAIL(S) 10/01/2015 11919-NLTN NAIL(S) 01/08/2016 29359-YHHT NAIL(S) 04/12/2016 35734-AEMUEDTX OF HEMATOMA/FLUID 018 11695-VJYLGTWG OF HEMATOMA/FLUID 023 Next Appt Details Provider Name:Kelsie Garcia ink, 11/22/2024 03:15:00 PM, [address] [facility], [place], [address], Insurance Providers Payer Name Payer Address Payer Phone Subscriber Number Group Number Insured Name Patient Relationship to Insured Coverage Start Date Coverage End Date Medicare National [employer] [address] [facility] [place] [address] [id number] Thaddeus Velásquez Self - patient is the insured [address] [place] [address] [address] [place], [place] [id number] Thaddeus Velásquez Self - patient is the insured Medical (General) History Medical History History ICD Code Arthritis Back,Hip,and Knee pain Broken bones Cataracts Chicken pox Measles Mumps type II diabetes Neuropathy Sciatica pericarditis Surgical History Surgery Date(Month/Year) cystoscopy cataract 2010 Hospitalization History Reason Date(Month/Year) [facility] nose bleed 2019 [facility] ER for chest pain. 11/08/2017 [facility] pt was light headed, sweaty. 03/2016
--- OUTSIDE RECORDS SUMMARY | 2024-08-23 18:21 | XMS_ITS ---
Author Organization [facility] Address [address] [place] [address] Care Team Providers Care Course Instructor Name Role Phone Frank, Kartik Primary Care Provider Kelsie Coughlin [phone] REASON FOR VISIT same day rs 06/22/24 Encounters Encounter Location Date Provider Diagnosis [address] [address] 06/22/2024 Kelsie Coughlin Plan Of Treatment Next Appt Details Provider Name:Kelsie zaragoza, 11/22/2024 03:15:00 PM, [address] [place], [address], Progress Notes * Thaddeus VELÁSQUEZ JrDOB:1944 (79 yo M)Acc No.[id number]:06/22/2024 Patient:?Thaddeus VELÁSQUEZ Jr :1945???Age:79 Y???Sex:Male Address:[address] [place] [address] [facility] [place] [address] * true * Date:? Generated for Printi ng/Fakulwinderg/eTransmitting on:?08/23/2024 06:20 PM EDT
--- OUTSIDE RECORDS SUMMARY | 2024-08-23 18:21 | XMS_ITS ---
[facility] Address [address] [facility] [place] [address] Care Team Providers Care University Counselor Name Role Phone Emiliano Marie Primary Care Provider [phone] Kelsie Coughlin Unavailable [phone] Reed Burt Unavailable [phone] Allergies Allergen (clinical drug ingredient) Drug/Non Drug [...] Active Encounters Encounter Location Date Provider Diagnosis [facility] [address] [address] 06/22/2024 Reed Burt Plan Of Treatment Next Appt Details Provider Name:Kelsie zaragoza, 11/22/2024 03:15:00 PM, [address] [place] [address], [phone], Progress Notes * Thaddeus VELÁSQUEZ JrDOB:1944 (79 yo M)Acc No.[id number]:06/22/2024 Progress Note Patient:?Thaddeus VELÁSQUEZ Jr Provider:?Reed Burt DPM :1945???Age:79 Y???Sex:Male Tanner e:06/22/2024 Address:[address] [place], [place] [id number] Pcp:Emiliano Marie Subjective: * Chief Complaints: * ??? * [...] Burt DPM Date:?2024 Generated for Alexandria brock/Skyler/Bronwyn on:?08/23/2024 06:20 PM EDT
--- OUTSIDE RECORDS SUMMARY | 2024-08-23 18:21 | XMS_ITS ---
Author Organization [facility] Address [address] [facility] [place] [address] Care Team Providers Care Chaser Helper Name Role Phone Frank Emiliano Primary Care Provider Kelsie Coughlin Unavailable [phone] Allergies Allergen (clinical drug ingredient) Drug/Non Drug Allergy documented on EMR Reaction Allergy Type Onset Date Status PredniSONE Unknown Drug Allergy Active REASON FOR VISIT At Risk Footcare, Toe Irritation Medications Medication SIG (Take, Route, Frequency, Duration) Notes Start Date End Date Status Indomethacin 50 MG 1 capsule with food Orally Three times a day for 10 days 05/13/2014 Not-Taking glyburide 5mg Not-Ta nikko Extra-Depth Diabetic Shoes with 3 Pair Custom heat-molded multi-density innersoles . for 1 year . Dx:niddm with neuropathy, foot deformity and preulcerative skin lesions for . 02/06/2014 Not-Taking Colcrys 0.6 MG 1 tablet Orally Once a day for 30 day(s) 05/13/2014 Not-Taking Extra-Depth Diabetic Shoes with 3 Pair Custom heat-molded multi-density innersoles . for 1 year . Dx:niddm with neuropathy, foot deformity and preulcerative skin lesions for . Not-Taking Metformin & Diet Manage Prod 1,000mg twice a day Not-Taking Simvastatin 40 MG Orally No t-Taking Colchicine 0.6 MG Orally No t-Taking Metoprolol Succinate ER 25 MG 1 tablet Orally Once a day Not-Taking Aspirin Not-Taking Amoxicillin-Pot Clavulanate 875 875-125 MG one tab Orally every 12 hrs for 30 days 04/21/2023 Not-Taking Cipro 500 MG 1 tablet Orally ever y 12 hrs for 30 days 01/17/2023 Not-Taking Amoxicillin-Pot Clavulanate 875 875-125 MG one tab Orally every 12 hrs for 10 day(s) 01/10/2023 Not-Taking Xarelto 20 MG Orally Active Multi Vitamin/Minerals Active amLODIPine Besylate Active Voltaren 1 % as directed Externally Active Atorvastatin Calcium 40 MG 1 tablet Orally Once a day for 30 day(s) Active Januvia Active Furosemide 20 MG Orally Act esha Social History Tobacco Use: Social History Observation [...] Points 0 Interpretation Negative Section Notes: \ Vital Signs Height 5 ft 10 in in 08/23/2024 Weight 215 lbs 08/23/2024 BMI 30.85 kg/m2 08/23/2024 Blood pressure systolic 130 mm Hg 08/24/19 25 Blood pressure diastolic 70 mm Hg 025 Procedures Procedure Date Ordered Date Performed Result Body Sit e 71918-HIYHMUH NAIL, 6 OR MORE 08/23/2024 N/A Encounters Encounter Location Date Provider Diagnosis [facility] [address] [address] 08/23/2024 Kelsie Coughlin Type 2 diabetes mellitus with diabetic polyneuropathy E11.42 ; Tinea unguium B35.1 ; Other hammer toe(s) (acquired), right foot M20.41 and Other hammer toe(s) (acquired), left foot M20.42 Assessments Encounter Date Diagnosis (ICD Code) Assessment Notes Treatment Notes Treatment Clinical Notes Section Notes 08/23/2024 Type 2 diabetes mellitus with diabetic polyneuropathy (ICD-10 - E11.42) 08/23/2024 Tinea unguium (ICD-10 - B35.1) 08/23/2024 Other hammer toe(s) (acquired), right foot (ICD-10 - M20.41) Patient Educated with: DIABETIC FOOT CARE INSTRUCTIONS. pdf (DIABETIC FOOT CARE INSTRUCTIONS. pdf) 08/23/2024 Other hammer toe(s) (acquired), left foot (ICD-10 - M20.42) Plan Of Treatment Treatment Notes Assessment Notes Other hammer toe(s) (acquired), right fo ot Patient Educated with: DIABETIC FOOT CARE INSTRUCTIONS.pdf (DIABETIC FOOT CARE INSTRUCTIONS.pdf) Pending Test Test Name Order Date [id number] NAIL, 6 OR MORE 08/23/2024 Next Appt Details Follow Up: 3 Months, Reason: Provider Name:Kelsie zaragoza, 11/22/2024 03:15:00 PM, [address] [place] [address], [phone], Procedure Notes * Category Sub-Category Detail Notes Debride Nail 6-10 Nail debridement Due to the cl inical pathology outlined in the exam findings, performance of this nail treatment is medically necessary as its management by an unskilled/untrained nonprofessional would put this patients foot and overall health at risk. Therefore, debridement to affected nail(s), as described in exam ( ___ ), was performed exclusively by the physician of record to reduce/remove overall nail length, girth, thickness, subungual debris, and necrotic tissue, by manual and/or electrical means through the use of a nail nipper and/or dremel-type abrasive grinder, to a more viable healthy nail plate or bed tissue 6-10 nails in total. Silver nitrate was used for any petechial bleeding as necessary. Definitive antifungal treatment options, both pharmaceutical and surgical, have been reviewed and discussed with the patient. The patient solely prefers the use of intermittent/as needed professional debridement services for their nail condition and understands the need for additional periodic treatments to maintain effectiveness in symptomatic relief - 34337 Keratoma Treatment Parring or Cutting o f Benign Hyperkeratotic Lesion(s) (-56) 2-4 Lesions - Due to the at risk nature of the patients medical condition as documented in the exam findings, performance of this keratoderma treatment is medically necessary as its management by an unskilled/untrained nonprofessional would put this patients foot and overall health at risk. Therefore, the benign hyperkeratotic lesions, (_2) in total, locations as stated and described in the exam ( plantar heels B/L ), were pared, and/or cut utilizing a sterile 15 blade, tissue nippers, and/or power dremel instrumentation by the physician of record - 15315 Progress Notes * Thaddeus VELÁSQUEZ JrDOB:1944 (79 yo M)Acc No.[id number]:08/23/2024 Progress Note Patient:?Thaddeus VELÁSQUEZ Jr Provider:?Kelsie Coughlin DPM :1945???Age:79 Y???Sex:Male Tanner e:08/23/2024 Address:[address] [place] [address] Jam[place], [facility] Pcp:Emiliano Marie Subjective: * Chief Complaints: * ???At Risk FootcareToe Irrit ation * HPI: ???At Risk footcare:?Pt States Last PCP Visit:?Date?05/04/2024 ?Misc?Recent Aortic valve replacement, pacemaker placement.?Toe pain:?Location:?B/L feet.?Duration:?several years.?Course:?worse.?Aggravated by:?shoes, any pressure.?Treatments:?change in shoes.? * ROS:?General/Constitutional:?Nausea?denies.?Vomiting?denies.?Hunger Thirst?denies.?Loss appetite?denies.?Chills?denies.?Fatigue?denies.?Fever?denies.?Night Sweats?denies.?Unexplained weight loss?denies.?Unexplained weight gain?denies.?HEENTM:?Dentures?denies.?Dizziness?denies.?Glasses/contacts?denies.?Retinopathy?den ies.?Blurred/double vision?denies.?TMJ?denies.?Discharge/drainage?denies.?Implants?denies.?Sore throat?denies.?Dental implants?denies.?Hard of hearing ?denies.?Difficulty chewing/swallowing/speaking?denies.?Nose bleeds?denies.?Sore mouth?denies.?Respiratory:?On O xygen?denies.?Pneumonia/pleurisy?denies.?Bronchitis?denies.?Emphysema?denies.?Co ughing?denies.?Cough blood?denies.?Shortness of breath?denies.?Wheezing?denies.?Cardiovascular:?Pacemaker?denies.?MVP?denies.?WPW?denies.?CHF?denies.?Heart attack?denies.?Septal defect?denies.?Rapid beat?denies.?Chest pain ?denies.?Atrial Fib.?denies.?Murmur/Palpitations?denies.?Gastrointestinal:?Hemorrhoids?denies.?Stomach/Abdominal pain?denies.?Dark blood stool?denies.?Irritable bowel ?denies.?Constipation?denies.?Diarrhea?denies.?Hematology:?Swelling?denies.?Clots?denies.?Varicose Veins?denies.?Bruising?denies.?Bleeding problem?denies.?Genitourinary:?Blood urine?denies.?Frequent/Painfu/urination/bladder control?denies.?Kidney stones?denies.?Infection (UTI)?denies.?Nephropathy?denies.?sex trans dis (STD)?denies.?Prostate?denies.?Musculoskeletal:?Hammertoes?denies.?Bunions?denies.?Back Pain?denies.?Muscle Cramps/ Resting?denies.?Muscle cramps / walking?denies.?Generalized aches and pains?denies.?Weakness?denies.?Integ.:?Patel?denies.?Scars?denies.?Corns/calluses?denies.?Ingrown nails?denies.?Painful nails?denies.?Open Sores?denies.?Rashes?denies.?Neurologic:?Difficulty sleeping?denies.?Brain disorder?denies.?Numbness?admits.?Balance t rouble?denies.?Confusion?denies.?Fainting/blackouts?denies.?Tingling?denies.?Jayden mors?denies.? * Medical History:? * Surgical History:?cystoscopy cataract 2010 * Hospitalization/Major Diagno stic [place] [place]. [place]. 11/08[place] * Family History:?Mother: dece ased.?Father: , diagnosed with Unspecified cerebral artery occlusion with cerebral infarction.? * Social History:?Tobacco Use:?Tobacco use other than smoking?Are you an other tobacco user??No ?Tobacco Control (Standard)?Tobacco use:?Nonsmoker ?Additional Findings: Tobacco non-user?Current nonsmoker ???Drugs/Alcohol:?Drugs?Have you used drugs other than those for medical reasons in the past 12 months??No ???Miscellaneous:?Caffeine: yes, frequency:, 1-2 cups per day. ?Children: yes. ?Exercise: yes, walking. ?Marital status: . 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 ???Drug/Alcohol:?AUDIT-C (Standard)?Did you have a drink containing alcohol in the past year??No ?Points?0 ?Interpretation?Negative ???\. * Medications:?TakingVoltaren 1 % Gel as [...] reviewed and reconciled with the patient * Allergies:?PredniSONE Objective: * Vitals:?Ht: 5 ft 10 in, Wt:2 15, BMI: 30.85, Shoe size:13, BP:130/70mm Hg, BS:121, Wt-k.52 kg. * ???Past Orders: ???Lab:HEMOGLOBIN A1C (GLYCO HEMOGLOBIN) (Order Date - 09/15/2023) (Collection Date & Time - 09/15/2023 01:31 PM) ? Value Reference Range ?HEMOGLOBIN A1C % (HH) 6.7 * Examination: ???Ophthalmology Referral: ?DIABETES EYE EXAM?Procedure Performed:?Yes Date ?Date of Exam Performed?07/06/2022 ?Diabetic Retinopathy Screening:?Yes ?Retinal Screening Performed:?No ?Findings of Diabetic Eye Exam:?no retinopathy?Neurological: ?SENSORY:? Neurological exam demonstrates, reduced light touch sensation, reduced sharp/dull pin prick discrimination , B/L, 5.07 monofilament test performed at plantar aspects of 5 varied sites per foot shows sensation, reduced , B/L.?Nails: ?NAILS are:?Elongated, overgrown, dystrophic, lytic, greater than 3mm thick, discolored and friable with crumbly malodorous subungual debris, TA, T1, T2, T3, T4, T5, T6, T7, T8, T9.?Dermatologic: ?SKIN FINDINGS:?Skin exam reveals Keratotic lesion(s) located at plantar heels B/L.?Vascular: ?DP PULSES (B):?1/4, B/L.?PT PULSES (B):? 0/4, B/L.?CAPILLARY FILL TIME:?3 secs. per digit, B/L.?TROPHIC CONDITION-TEXTURE/ELASTICITY/TURGOR/HAIR GROWTH (B):?normal, B/L.?TEMPERTURE GRADIENT (C):?warm to cool, proximal to distal, B/L.?PIGMENTATION:?normal, B/L.?EDEMA (C):?2/4, Right, 1/4, Left, Feet, Ankle(s), Leg(s).?Orthopedic: ?MUSCLE STRENGTH:?5/5 all groups in a symmetrical fashion, B/L.?FOOT MORPHOLOGY:?(-) Charcot collapse/destruction noted at MTJ.?DIGITAL DEFORMITIES:?Digital contracture, PIPJ, 2-5 B/L, incompl-reducible to push-up test, no over, nor underlapping,?there is?evidence of shoe producing skin irritation.?FOOTWEAR EVALUATION:?worn, non-supportive, shoe gear properties exacerbate patient's foot/toe deformity.?General Examination: ?GENERAL APPEARANCE:?Reveals a pleasant, alert, well nourished, well- developed, well hydrated individual, who demonstrates proper attention to hygiene/body habitus, and is in no acute distress, Pt serves as own historian for office visit today.?ORIENTED:?person, place, and time.?FOOT EXAM:?Lower Extremity Neurological Exam performed:?Yes Date ?Visual exam of foot performed:?Yes ?Footwear Evaluation?Footwear Evaluation performed:?Yes??? Assessment: * Assessment: 1.?Type 2 diabetes mellitus with diabetic polyneuropathy - E11.42 (Primary)???2.?Tinea unguium - B35.1???3.?Other hammer toe(s) (acquired), right foot - M20.41???Specify :Chronic problem, Worse (4),Rx Management (4)???4.?Other hammer toe(s) (acquired), left foot - M20.42???Specify :Chronic problem, Worse (4),Rx Management (4)??? Plan: * Treatment: 2.?Other hammer toe(s) (acqu ired), right foot? Notes: Patient Educated with: DIABETIC FOOT CARE INSTRUCTIONS.pdf (DIABETIC FOOT CARE INSTRUCTIONS.pdf)?? * Procedures:?Debride Nail 6-10:?Nail debridement?Due to the clinical pathology outlined in the exam findings, performance of this nail treatment is medically necessary as its management by an unskilled/untrained nonprofessional would put this patients foot and overall health at risk. Therefore, debridement to affected nail(s), as described in exam ( ___ ), was performed exclusively by the physician of record to reduce/remove overall nail length, girth, thickness, subungual debris, and necrotic tissue, by manual and/or electrical means through the use of a nail nipper and/or dremel-type abrasive grinder, to a more viable healthy nail plate or bed tissue 6-10 nails in total. Silver nitrate was used for any petechial bleeding as necessary. Definitive antifungal treatment options, both pharmaceutical and surgical, have been reviewed and discussed with the patient. The patient solely prefers the use of intermittent/as needed professional debridement services for their nail condition and understands the need for additional periodic treatments to maintain effectiveness in symptomatic relief - 39184.?Keratoma Treatment:?Parring or Cutting of Benign Hyperkeratotic Lesion(s)?(-56) 2-4 Lesions - Due to the at risk nature of the patients medical condition as documented in the exam findings, performance of this keratoderma treatment is medically necessary as its management by an unskilled/untrained nonprofessional would put this patients foot and overall health at risk. Therefore, the benign hyperkeratotic lesions, (_2) in total, locations as stated and described in the exam ( plantar heels B/L ), were pared, and/or cut utilizing a sterile 15 blade, tissue nippers, and/or power dremel instrumentation by the physician of record - 11675.? * Procedure Codes:?51477 DEBRI DE NAIL, 6 OR MORE, Modifiers: XS 18703 TRIM SKIN LESIONS, 2 TO 4, Modifiers: XS * Preventive Medicine:? ??Counseling:?Discussion:?-13: Office or other outpatient visit for the evaluation and management of an established patient, which required a medically appropriate history and/or examination and LOW level of DECISION MAKING for: 1 STABLE ACUTE UNCOMPLICATED PROBLEM, 2 OR MORE MINOR PROBLEMS, OR 1 STABLE CHRONIC PROBLEM, THAT POSE(S) A LOW RISK FOR MORBIDITY/MORTALITY. The visit on the day of the encounter encompassed interpreting the data and educating the patient as to the nature of their condition, treatment options available according to their individual PMH, meds, allergies, and overall health/living conditions, as well as any potential risks or complications that may occur from a failure to adhere to, and participate in, the recommended course of therapy. The discussion included a complete verbal, and/or written explanation of the examination results, any x-rays taken, the proposed diagnosis, and outline of the treatment plan. A schedule for future care needs was also explained. The patient verbalized an understanding of the instructions at this time and agreed to be an active participant in their treatment. If the patient should think of any questions or concerns after the visit, I have encouraged the patient to call the office.?Digital Surgery:?Digital surgery was discussed with the patient, We elected to try conservative treatment at the present time, due to the patients medical history and increased asssociated post-operative risks.?Digital Treatment:?HT- I explained to the patient the possible etiologies of Hammertoes, including genetics/foot type/shoegear/activity level/exercise routine and the risks/benefits of all the different treatment options for their pain including: No treatment at all, Rest, Ice, New/supportive/wider/deeper Shoegear, Digital Padding/Strapping/Taping/Bracing/Gel protective sleeves, Foot/Ankle AFO Bracing, Stretching exercises, Deep Tissue Massage, Arch support/shoe inserts with splay metatarsal padding, and Custom orthoses. I insisted that any digital devices be removed daily and not worn overnight for safety. The patient is to carefully examine the toes daily for any skin irritation while using any splinting or padding device. The advantages and disadvantages of each option were discussed and the patients questions re: shoegear, padding, custom vs prefabricated inserts, activity level, and consistency in home treatment regimens for optimal success were answered to their verbally confirmed satisfaction.?Shoe Gear Counseling:?SHOE Rx - The patient was counseled in great detail on their muscoloskeletal foot and toe deformities which coincided with the dermatological presentations visualized on exam. We discussed how their deformities put the integrity of their feet at risk for potential pedal complications which makes the accomidative diabetic shoes and cutomizable inserts medically necessary. We discussed the different shoe and insert treatment types and options, as well as the important advantages for adhering to regularly wearing these accomidative devices daily. The patient was made aware of the fact that a failure to abide by these recommedations may be deleterious to their foot health as they are able to prevent many pedal complications such as skin irritation, skin ulceration, infection, and even loss of toe/foot/leg/or life. Time was also spent with the patient dispensing and discussing proper diabetic footcare techniques including daily skin moisturization, daily foot inspection for any interruption in skin integrity including open lesions, or sign of infection such as redness/malodor/drainage/swelling. Also discussed and recommended were procedures regarding daily shoe inspection for the presence of internal foreign bodies as well as any visualized irregular shoe or insert wear. Patient questions re: shoes, inserts, and self foot inspections were answered to their satisfaction as the patient verbally confirmed a full understanding of the above information. A Rx for Extra Depth Orthopedic Shoes with 3 pair of custom heat-molded inserts was dispensed.? ??Screening/Special Tests:?Fall Risk?Screening:?No falls in the past year ?FALLS: Screening for Future Fall Risk?Have you had any falls with injury in the past year??No * Follow Up:?3 Months * Images: * Sign off status: Completed true * Provider:?Kelsie Coughlin DPM Date:?0 08/23/2024 Generated for Alexandria brock/Skyler/Bronwyn on:?08/23/2024 06:21 PM EDT History and Physical Notes * HPI (History of Present Illness) Category Sub-Category Detail Notes Category Not es Toe pain Location: B/L feet Duration: several years Course: worse Aggravated by: shoes, any pressure Treatments: change in shoes At Risk footcare Pt States Last PCP Visit: Date: Misc Recent Aortic valve replacement, pacemaker placement Examination Category Sub-Category Detail Notes Category Not es Neurological SENSORY: Neurological exa m demonstrates, reduced light touch sensation, reduced sharp/dull pin prick discrimination , B/L, 5.07 monofilament test performed at plantar aspects of 5 varied sites per foot shows sensation, reduced , B/L Dermatologic SKIN FINDINGS: Skin exam reveal s Keratotic lesion(s) located at plantar heels B/L Orthopedic FOOT MORPHOLOGY: (-) Charcot col lapse/destruction noted at MTJ FOOTWEAR EVALUATION: worn, non-supportiv e, shoe gear properties exacerbate patient's foot/toe deformity DIGITAL DEFORMITIES: Digital contracture , PIPJ, 2-5 B/L, incompl-reducible to push-up test, no over, nor underlapping, there is evidence of shoe producing skin irritation MUSCLE STRENGTH: 5/5 all groups in a symmetrical fashion, B/L General Examination GENERAL APPEARANCE: Reveals a pleasant, alert, well nourished, well-developed, well hydrated individual, who demonstrates proper attention to hygiene/body habitus, and is in no acute distress, Pt serves as own historian for office visit today FOOT EXAM: Lower Extremity Neurological Exa m performed:: Yes Date Visual exam of foot performed:: Yes ORIENTED: person, place, and t carlitos Footwear Evaluation Footwear Evaluation performe d:: Yes Ophthalmology Referral DIABETES EYE EXAM Procedure Perform ed:: Yes Date ?Date of Exam Performed: 07/06/2022 Diabetic Retinopathy Screening:: Yes Retinal Screening Performed:: No Findings of Diabetic Eye Exam:: no [...] and friable with crumbly malodorous subungual debris, TA, T1, T2, T3, T4, T5, T6, T7, T8, T9
== END 2024-08-23 15:11 | disposition home or self-care (01) ==
LOC: HO.HVNA 15:10
PROVIDERS: Visit Provider Physician Assistant Medical
DX: Z13.89 Encounter for screening for other disorder (principal)
CPT/HCPCS: 81001

== ENCOUNTER 2024-08-26 10:50 | Inpatient (IN) | payer MEDICARE, OTHER, SELFPAY ==
[2024-08-26] VITALS (11 sets, daily range): BP systolic 99–130; BP diastolic 38–61; PULSE 60–68; RESP 12–18; TEMP 36.3–37.1; O2SAT 92–100; BMI 31.3
--- NOTE | ~2024-08-26 | CT_ITS ---
CLINICAL HISTORY: melena anemia on thinners CT ANGIOGRAPHY ABDOMEN AND PELVIS WITH CONTRAST. 3-D POST PROCESSING. Comparison: CT/SR - CT ABDOMEN PELVIS WO IV CON - 04/06/22 03:46 EST Findings: There is an aortic valve stent. Probable cardiac pacing wire artifact. Prominent aortic and arterial calcifications. No aneurysm, dissection, occlusion or flow-limiting stenosis. No active contrast extravasation or abnormal contrast blush to suggest an active bleeding focus. Fibrotic changes in the included lungs. Small subpleural opacity in the right middle lobe. No pleural effusion. Tiny calcified granulomas in the right lower lobe. No acute abnormalities in the solid organs. No urolithiasis. Tiny nonspecific left renal cortical hypodensity. No large calcified gallstone. No bowel obstruction, pneumoperitoneum, or pneumatosis. Minimal ascites in the left lower quadrant. No organized fluid collection. No significant mesenteric or paracolic edema. There are multiple colonic diverticula. Large amount of stool throughout the colon. The appendix is identified. No acute appendicitis. The prostate is enlarged measuring 6 cm transversely. Small fat containing bilateral inguinal hernias. Advanced degenerative changes in the thoracolumbar spine. Minimal grade 1 spondylolistheses L1-2 and L4-5. IMPRESSION: 1. No active bleeding site identified. 2. Diverticulosis coli with no acute diverticulitis. Large colonic stool burden. 3. Minimal ascites in the left lower quadrant. No bowel obstruction or ileus. 4. No acute obstructive uropathy. 5. Small subpleural opacity in the right middle lobe may be inflammatory or infectious in etiology. 6. Prostatomegaly. This document has been electronically signed by: Elida Salguero DO on 08/26/2024 13:25:41
--- NOTE | 2024-08-26 11:12 | ECG_ITS ---
Test Reason : FALL Blood Pressure : */* mmHG Vent. Rate : 65 BPM Atrial Rate : 65 BPM P-R Int : 244 ms QRS Dur : 120 ms QT Int : 448 ms P-R-T Axes : 39 7 1 degrees QTcB Int : 465 ms Sinus rhythm with 1st degree A-V block Low voltage QRS Right bundle branch block Abnormal ECG When compared with ECG of 27-Jul-2024 21:29, Right bundle branch block has replaced Incomplete right bundle branch block Referred By: Generic ED Physician Electronically Signed By: Eduar Westbrook
[2024-08-26 11:18] LABS: MANUAL DIFF FLAG NO
[2024-08-26 11:21] LABS: Basophils Percent Auto 0.6 % (0-2); Eosinophils Absolute Auto 0.1 X10*3/uL (0.0-0.4); Eosinophils Percent Auto 0.9 % (0-4); Imm Gran Abs Auto 0.03 X10*3/uL (0.00-0.03); Imm Gran Pct Auto 0.4 % (0.0-0.4); Lymphocytes Absolute Auto 1.4 X10*3/uL (1.2-4.9); Lymphocytes Percent Auto 19.8 % (20-40); Mean Corpuscular Hemoglobin 28.9 pg (27.0-33.0); Mean Corpuscular Volume 90.2 fL (80.0-98.0); Mean Platelet Volume 10.3 fL (9.4-12.4); Monocytes Absolute Auto 0.9 X10*3/uL (0.1-1.2); Monocytes Percent Auto 13.3 % (2-11); Neutrophils Absolute Auto 4.5 x10*3/uL (2.0-8.3); Platelet Count 231 X10*3/uL (160-400); Red Blood Count 1.94 X10*6/uL (4.60-5.80); Red Cell Distribution Width 15.4 % (11.0-16.0); White Blood Count 6.9 X10*3/uL (4.8-10.8)
--- OUTSIDE RECORDS SUMMARY | 2024-08-26 11:24 | XMS_ITS ---
Author Organization [facility] Address [address] [facility] [address] Care Team Providers Care Commissioner Of Officials Name Role Phone Frank Emiliano Primary Care Provider [phone] Kelsie Coughlin Unavailable [phone] Allergies Allergen (clinical drug ingredient) Drug/Non Drug [...] Ordered Date Performed Result Body Sit e 08692-[id number] NAIL, 6 OR MORE 08/23/2024 N/A Encounters Encounter Location Date Provider Diagnosis [facility] [address] [address] 08/23/2024 Kelsie Coughlin Type 2 diabetes mellitus [...] INSTRUCTIONS.pdf) Pending Test Test Name Order Date [id number] NAIL, 6 OR MORE 08/23/2024 Next Appt Details Follow Up: 3 Months, Reason: Provider Name:Kelsie zaragoza, 11/22/2024 03:15:00 PM, [address] [place] [address], [phone], Procedure Notes * Category Sub-Category Detail [...] use of a nail nipper and/or dremel-type pulp grinder, to a more viable healthy nail [...] to maintain effectiveness in symptomatic relief - 11101 Keratoma Treatment Parring or Cutting o f [...] instrumentation by the physician of record - 00689 Progress Notes * Thaddeus VELÁSQUEZ JrDOB:1944 (79 yo M)Acc No.[id number]:08/23/2024 Progress Note Patient:?Thaddeus VELÁSQUEZ Jr Provider:?Kelsie Coughlin DPM :1945???Age:79 Y???Sex:Male Tanner e:08/23/2024 Address:[address] [place] [address] Jam[place], [facility] Pcp:Emiliano Marie Subjective: * Chief Complaints: * [...] History:?cystoscopy cataract 2010 * Hospitalization/Major Diagno stic Procedure:[place] [place] light headed, sweaty. 03/2016[facility] [place] [place] for chest pain. 11/08/2017[facility] [place] nose bleed [place] * Family History:?Mother: dece [...] use of a nail nipper and/or dremel-type pulp grinder, to a more viable healthy nail [...] to maintain effectiveness in symptomatic relief - 44642.?Keratoma Treatment:?Parring or Cutting of Benign Hyperkeratotic Lesion(s)?(-56) [...] instrumentation by the physician of record - 52173.? * Procedure Codes:?31173 DEBRI DE NAIL, 6 OR MORE, Modifiers: XS 80954 TRIM SKIN LESIONS, 2 TO 4, Modifiers: [...] DPM Date:?0 08/23/2024 Generated for Alexandria brock/Skyler/Bronwyn on:?08/26/2024 11:24 AM EDT History and Physical Notes * [...]
--- OUTSIDE RECORDS SUMMARY | 2024-08-26 11:24 | XMS_ITS ---
Author Organization [facility] Address [address] [place] [address] Care Team Providers Care Air Twist Operator Name Role Phone Frank, Kartik Primary Care Provider [phone] Keslie Coughlin [phone] REASON FOR VISIT same day rs 06/22/24 Encounters Encounter Location Date Provider Diagnosis [address] [address] 06/22/2024 Kelsie Coughlin Plan Of Treatment Next Appt Details Provider Name:Kelsie zaragoza, 11/22/2024 03:15:00 PM, [address] [place], [address], Progress Notes * Thaddeus VELÁSQUEZ JrDOB:1944 (79 yo M)Acc No.[id number]:06/22/2024 Patient:?Thaddeus VELÁSQUEZ Jr :1945???Age:79 Y???Sex:Male Address:[address] [place] [address] [place] [address] * true * Date:? Generated for Printi ng/Fakulwinderg/eTransmitting on:?08/26/2024 11:24 AM EDT
--- OUTSIDE RECORDS SUMMARY | 2024-08-26 11:24 | XMS_ITS ---
Author Organization [facility] Address [address] [facility] [place] [address] Care Team Providers Care Deaf/Hard Of Hearing Specialist Name Role Phone Emiliano Marie Primary Care Provider [phone] Kelsie Coughlin Unavailable [phone] Reed Burt Unavailable [phone] Allergies Allergen (clinical drug ingredient) Drug/Non Drug [...] Active Encounters Encounter Location Date Provider Diagnosis [facility] [address] [address] 06/22/2024 Reed Burt Plan Of Treatment Next Appt Details Provider Name:Kelsie zaragoza, 11/22/2024 03:15:00 PM, [address] [place] [address], [id number], Progress Notes * Thaddeus VELÁSQUEZ JrDOB:1944 (79 yo M)Acc No.[id number]:06/22/2024 Progress Note Patient:?Thaddeus VELÁSQUEZ Jr Provider:?Reed Burt DPM :1945???Age:79 Y???Sex:Male Tanner e:06/22/2024 Address:[address] [place], [place] [id number] Pcp:Emiliano Marie Subjective: * Chief Complaints: * [...] Burt DPM Date:?2024 Generated for Alexandria brock/Skyler/Bronwyn on:?08/26/2024 11:24 AM EDT
[2024-08-26 11:31] LABS: Hematocrit 17.5 % (42.0-52.0); Hemoglobin 5.6 g/dl (14.0-18.0)
--- NOTE | 2024-08-26 11:32 | ED_ITS ---
HPI - General Adult General Chief complaint: Abdominal Pain Stated complaint: LETHARGIC Time Seen by Provider: 08/26/24 11:21 Source: patient and EMS Mode of arrival: EMS Limitations: no limitations History of Present Illness ED Provider: DOMINGA EDWARDS PA-C HPI narrative: 79 year old male with pmhx significant for PAF anticoagulated on xarelto, recent TAVR (bioprosthetic valve) w/ pacemaker placement on 07/24/24, HTN, T2DM, TIA, HLD presents to the ED today via EMS for evaluation of increased lethargy x3 days. Admits to mild lower abdominal discomfort. Reports episode of dark, black, tarry stool this morning. Denies any nausea, vomiting, hematemesis. Denies history of blood transfusions. Patient states that he recently had a pacemaker placed on 07/24/2024 with TAVR. Related Data Home Medications ?Medication ?Instructions ?Recorded ?Confirmed atorvastatin 40 mg tablet 40 mg PO BEDTIME 09/02/20 08/26/24 sitagliptin phosphate 100 mg tablet 100 mg PO DAILY 03/17/21 08/26/24 acetaminophen 325 mg tablet 650 mg PO Q8H PRN Pain 07/10/24 08/26/24 cholecalciferol (vitamin D3) 25 25 mcg PO DAILY 07/28/24 08/26/24 mcg (1,000 unit) tablet ferrous sulfate 325 mg (65 mg 325 mg PO DAILY 07/28/24 08/26/24 iron) tablet omeprazole 20 mg tablet,delayed 20 mg PO DAILY 07/28/24 08/26/24 release psyllium husk 0.4 gram capsule 0.4 g PO DAILY 07/28/24 08/26/24 (Fiber (psyllium husk)) carboxymethylcellulose sodium 1 % 1 drp ophthalmic (eye) BID PRN Dry 08/26/24 08/26/24 eye liquid gel drops Eyes melatonin 10 mg tablet 10 mg PO BEDTIME 08/26/24 08/26/24 Previous Rx's ?Medication ?Instructions ?Recorded rivaroxaban 20 mg tablet (Xarelto) 20 mg PO DAILY #90 tabs 03/23/24 gabapentin 300 mg capsule 300 mg PO BID #180 caps 06/06/24 albuterol sulfate 90 mcg/actuation 1 inh inhalation QID PRN shortness 07/10/24 aerosol inhaler of breath or wheezing #8.5 grams metoprolol succinate 50 mg 50 mg PO DAILY #30 tabs 08/16/24 tablet,extended release 24 hr (Toprol XL) Allergies Allergy/AdvReac Type Severity Reaction Status Date / Time prednisone Allergy Unknown GI Verified 08/26/24 11:05 Review of Systems 2 Review of Systems: Yes all other systems are reviewed and are negative [facility] Past Medical History Attestation statement: The following information was validated with the patient. Source: old records reviewed and nursing notes reviewed Medical History Aortic stenosis Cardiac pacemaker in situ Speaking difficulty TIA (transient ischemic attack) Insomnia Hospital discharge follow-up History of echocardiogram Hypertriglyceridemia Tubular adenoma Dyspnea on exertion Obesity (BMI 30-39.9) Right shoulder injury Right shoulder pain Cough Raynaud disease Edema Hyperlipemia HTN (hypertension) Type 2 diabetes mellitus PAF (paroxysmal atrial fibrillation) Surgical History S/P TAVR (transcatheter aortic valve replacement) History of colonoscopy (~01/04/20) History of cardiac cath History of cataract surgery Family History Family History Father No problems noted. Mother No problems noted. Paternal Grandfather CVD (cardiovascular disease) Paternal Grandmother No problems noted. Maternal Grandfather CVD (cardiovascular disease) Maternal Grandmother No problems noted. 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 Cognitive needs: Yes (cane) Hearing needs: Yes (b/l hearing aids) Vision needs: Yes (reading glasses) Physical Exam ED Vital Signs: Vital Signs - 24 hr 08/26/24 11:03 08/26/24 11:42 08/26/24 11:45 Temperature 97.8 F 97.6 F Pulse Rate 68 61 61 Respiratory Rate 12 12 Blood Pressure 117/51 L 115/43 L 111/40 L Pulse Oximetry 100 100 Oxygen Delivery Method Room Air Room Air 08/26/24 12:46 Temperature 97.8 F Pulse Rate 64 Respiratory Rate 12 Blood Pressure 124/38 L Pulse Oximetry 92 Oxygen Delivery Method Room Air BMI result Body Mass Index 31.3 General: No acute distress, mildly jaundice Skin: Warm, dry, intact. No rashes or lesions. Head: Normocephalic, atraumatic. EENT: Hearing is intact b/l. Conjunctiva clear. PERRLA. EOM intact. Dry mucous membrane Neck: Supple without LAD Cardiac: Chest wall symmetric. RRR Lungs: Normal respiratory effort without accessory muscle use. CTA bilaterally Abdomen: Obese abdomen, soft, nondistended, mildly tender to palpation of suprapubic region. No rebound or guarding. active bs. Rectal exam performed with [facility] and Larry BRITT student present in room to bead wire taper with patient's consent. Normal rectal sphincter tone. No external masses or lesions. Palpable soft stool in rectal vault. Stool is black, tarry. OBS positive. Back: No midline spinous or paraspinal tenderness. No step off deformity. Ext: Upper and lower extremities atraumatic, without tenderness, deformity, swelling or erythema Neuro: AOx3. Normal speech. Psych: Appropriate mood and affect. Responds appropriately to questions. Course Course Course Narrative: 1249 -- Received critical H&H of 5.6/17.5. This is quite a drop from H&H of 11.2/34.3 less than 1 month ago on 07/28/2024. Elevated PT to 44.3, INR 3.8, elevated a PTT to 39.9. Chemistry without acute electrolyte abnormality requiring intervention. When 29, normal creatinine. Random glucose 124. AST elevated to 817, ALT elevated to 810, alk phos 160. Normal T bili. OBS positive. Concern for acute GI bleed, on Xarelto. CT abdomen/pelvis pending. > given patient is anticoagulated on Xarelto with recent TAVR (tissue valve), I reached out to home sales service professional Dr. Caruso regarding reversal agent. He spoke with [facility] TAVR team who is recommending either andexxa or kcentra. I also discussed with my attending dr. menezes who agrees with kcentra administration. > I also spoke with on-call GI Dr. Salazar regarding suspected GI bleed. recommending dose of protonix and NPO diet. > Discussed workup results with patient. Informed patient that I am concerned for a GI bleed given his drop in hemoglobin and hematocrit. I discussed the importance of blood transfusion given he is symptomatic and likely actively bleeding. I discussed risks v benefits of blood transfusion. Discussed all complications. Discussed administration of anticoagulant reversal agent. he verbalizes understanding and has signed informed consent for both blood/blood products. type and screen ordered. kcentra + 2 units packed RBCs ordered. 1301 -- BNP elevated to 463 > advised executive staff assistant to run blood slowly. baseline around 190's. 1347 -- CT abdomen/pelvis does not demonstrate active bleeding site. There is diverticulosis coli without evidence of acute diverticulitis with large colonic stool burden. Minimal ascites to left lower quadrant. No bowel obstruction or ileus. No obstructive uropathy. Small subpleural opacity to right middle lobe ?inflammatory versus infectious etiology. Prostatomegaly. > given acute drop in H&H on Xarelto, patient requires admission for further management. I did discuss admission with patient who was agreeable. Spoke with hospitalist dr. magana and dr. saavedra who have accepted patient admission to medicine for further work up. he is stable at this time. Medications Administered Discontinued Medications Generic Name Dose Route Start Last Admin Trade Name Freq PRN Reason Stop Dose Admin Prothrombin Complex Concent ( 80 mls @ 480 mls/hr 08/26/24 12:39 08/26/24 13:10 Human) 2,000 unit/ IV IV 08/26/24 12:48 Infused Miscellaneous Supplies .Q10M ONE Infusion Iohexol 100 ml 08/26/24 12:08 08/26/24 12:08 Iohexol 350 Mg/Ml 100 Ml Infus..Btl IV 08/26/24 12:09 80 ml ONCE ONE Administration Pantoprazole Sodium 40 mg 08/26/24 12:07 08/26/24 12:46 Pantoprazole Sodium 40 Mg/10 Ml Vial IVPUSH 08/26/24 12:08 40 mg ONCE ONE Administration Medical Decision Making Medical Decision Making MDM Narrative: 79 year old male with pmhx significant for PAF anticoagulated on xarelto, recent TAVR (bioprosthetic valve) w/ pacemaker placement on 07/24/24, HTN, T2DM, TIA, HLD presents to the ED today via EMS for evaluation of increased lethargy x3 days. Slightly hypotensive, vitals otherwise WNL. He is nontoxic appearing, sitting comfortably on exam bed. on exam, obese abdomen, soft, nondistended, mildly tender to palpation of suprapubic region. No rebound or guarding. active bs. [facility] and Larry BRITT student present in room to bead wire taper with patient's consent. Normal rectal sphincter tone. No external masses or lesions. Palpable soft stool in rectal vault. Stool is black, tarry. OBS positive. Differential diagnosis includes anemia, electrolyte abnormality, dehydration, GI bleed, PUD, colitis, diverticulosis/diverticulitis, ACS, arrhythmia, UTI Plan for labs, EKG, UA, OBS, imaging, re-evaluation Differential Diagnosis Differential Diagnoses: The differential diagnosis associated with the presentation includes As above Admission/Observation Consideration of admission/observation: Escalation of care including admission/observation considered Patient admitted to medicine for acute GI bleed and anemia requiring transfusion Consult Healthcare Provider Management of the patient was discussed with: Hospitalist and Dance Coach Hospitalist - dr. saavedra GI - dr. salazar Cardiology - dr. caruso Lab Data MDM Lab Attestation statement: I reviewed the patient's lab results. as above. 08/26/24 11:15 08/26/24 11:15 Labs: Lab Results 08/26/24 08/26/24 08/26/24 Range/Units 11:15 11:41 12:41 WBC 6.9 (4.8-10.8) X10*3/uL RBC 1.94 L D (4.60-5.80) X10*6/uL Hgb 5.6 L* D (14.0-18.0) g/dl Hct 17.5 L* D (42.0-52.0) % MCV 90.2 (80.0-98.0) fL MCH 28.9 (27.0-33.0) pg MCHC 32.0 (31.0-36.0) g/dl RDW 15.4 (11.0-16.0) % Plt Count 231 D (160-400) X10*3/uL MPV 10.3 (9.4-12.4) fL Immature Gran % (Auto) 0.4 (0.0-0.4) % Neut % (Auto) 65.0 (45-73) % Lymph % (Auto) 19.8 L (20-40) % [place] % (Auto) 13.3 H (2-11) % Eos % (Auto) 0.9 (0-4) % Baso % (Auto) 0.6 (0-2) % Lymph # (Auto) 1.4 (1.2-4.9) X10*3/uL [place] # (Auto) 0.9 (0.1-1.2) X10*3/uL Eos # (Auto) 0.1 (0.0-0.4) X10*3/uL Baso # (Auto) 0.0 (0.0-0.2) X10*3/uL Abs Immat Gran (auto) 0.03 (0.00-0.03) X10*3/uL Absolute Neuts (auto) 4.5 (2.0-8.3) x10*3/uL Absolute Nucleated RBC 0.000 (0.0-0.012) X10*3/uL Nucleated RBC % (auto) 0.0 (0.0-0.2) /100WBC PT 44.3 H D (10.9-12.4) SEC INR 3.8 H (0.9-1.1) APTT 39.9 H D (26.0-36.8) SEC Sodium 136 (135-145) mmol/L Potassium 4.3 (3.3-5.1) mmol/L Chloride 107 (96-108) mmol/L Carbon Dioxide 19 L (22-29) mmol/L Anion Gap 14 (12-20) BUN 29 H (9-16) mg/dL Creatinine 1.36 (0.5-1.4) mg/dL Estim Creat Clear Calc 50.4 Estimated GFR 51 Random Glucose 124 H (60-115) mg/dL Calcium 8.7 (8.4-10.2) mg/dL Total Bilirubin 0.6 (0.0-1.0) mg/dL AST 817 H (5-37) U/L ALT 810 H (0-40) U/L Alkaline Phosphatase 160 H (39-117) U/L B-Natriuretic Peptide 463 H (<100) pg/mL Total Protein 6.2 L (6.5-8.0) g/dL Albumin 3.7 (3.5-5.0) g/dL Stool Occult Blood POSITIVE (NEGATIVE) Blood Type O Positive Antibody Screen NEGATIVE Crossmatch See Detail Independent Interpretation I performed an independent interpretation of an: EKG and CT Scan Interpretation: CT a/p without obvious bleed EKG showing sinus rhythm with first-degree AV block with right bundle-branch block, no acute ischemic changes or ST elevations, findings present on prior EKGs. Radiology Impression Discussion of test interpretation with radiology: I have reviewed the radiologist's reading. Radiologist Impression: Procedure(s): CT gi bleed abd pel wo/w IVcon Accession Number(s): [id number] cc: Dominga Edwards; Emiliano Marie MD~ Report Number: [id number]: Total DLP = 2732.00 mGy-cm CLINICAL HISTORY: melena anemia on thinners CT ANGIOGRAPHY ABDOMEN AND PELVIS WITH CONTRAST. 3-D POST PROCESSING. Comparison: CT/SR - CT ABDOMEN PELVIS WO IV CON - 04/06/22 03:46 EST Findings: There is an aortic valve stent. Probable cardiac pacing wire artifact. Prominent aortic and arterial calcifications. No aneurysm, dissection, occlusion or flow-limiting stenosis. No active contrast extravasation or abnormal contrast blush to suggest an active bleeding focus. Fibrotic changes in the included lungs. Small subpleural opacity in the right middle lobe. No pleural effusion. Tiny calcified granulomas in the right lower lobe. No acute abnormalities in the solid organs. No urolithiasis. Tiny nonspecific left renal cortical hypodensity. No large calcified gallstone. No bowel obstruction, pneumoperitoneum, or pneumatosis. Minimal ascites in the left lower quadrant. No organized fluid collection. No significant mesenteric or paracolic edema. There are multiple colonic diverticula. Large amount of stool throughout the colon. The appendix is identified. No acute appendicitis. The prostate is enlarged measuring 6 cm transversely. Small fat containing bilateral inguinal hernias. Advanced degenerative changes in the thoracolumbar spine. Minimal grade 1 spondylolistheses L1-2 and L4-5. IMPRESSION: 1. No active bleeding site identified. 2. Diverticulosis coli with no acute diverticulitis. Large colonic stool burden. 3. Minimal ascites in the left lower quadrant. No bowel obstruction or ileus. 4. No acute obstructive uropathy. 5. Small subpleural opacity in the right middle lobe may be inflammatory or infectious in etiology. 6. Prostatomegaly. Independent Historian Clinical information obtained from an independent historian. History obtained from or confirmed by: EMS External Record Review External record reviewed: Inpatient record, Office record, Outpatient record, Prior outpatient labs, Prior outpatient radiology, Primary care record and Outside ED record Chronic Conditions Patient?s care impacted by: Other (AFib, aortic stenosis) Social Determinants Patient?s care significantly limited by Social Determinants of Health including: Other Social Determinant of Health Critical Care Time Critical Care Time Critical Care Time: Yes Total Critical Care Time: 45 Attestation: Critical care time in the amount of 45 minutes has been provided to the patient in terms of direct patient care, frequent reevaluation, consultation with hospitalist/home sales service professional/distance learning administrator, review and interpretation of medical data and results, and management of potentially life-threatening conditions. This is all outside of any medical procedures. Discharge Plan Discharge Clinical Impression: Acute GI bleeding, Anemia, Transaminitis Patient Disposition: Admitted As Inpatient Interventions: Admission Worksheet (ED) Last Done: 08/26/24 14:38 Discharge Date/Time: 08/26/24 16:04
[2024-08-26 11:35] LABS: Alanine Aminotransferase 810 U/L (0-40); Albumin Level 3.7 g/dL (3.5-5.0); Alkaline Phosphatase 160 U/L (39-117); Anion Gap 14 (12-20); Aspartate Amino Transferase 817 U/L (5-37); Bilirubin Total 0.6 mg/dL (0.0-1.0); Blood Urea Nitrogen 29 mg/dL (9-16); Calcium 8.7 mg/dL (8.4-10.2); Carbon Dioxide 19 mmol/L (22-29); Chloride 107 mmol/L (96-108); Creatinine Clr Calc Pharmacy 50.4; Estimated Glomerular Filt Rate 51; Glucose Random 124 mg/dL (60-115); Potassium 4.3 mmol/L (3.3-5.1); Sodium 136 mmol/L (135-145); Total Protein 6.2 g/dL (6.5-8.0)
[2024-08-26 11:46] LABS: INTERNATIONAL NORM RATIO 3.8 (0.9-1.1); Prothrombin Time 44.3 SEC (10.9-12.4)
[2024-08-26 11:49] LABS: Partial Thromboplastin Time 39.9 SEC (26.0-36.8)
--- NOTE | 2024-08-26 11:50 | MHC.EDTECH ---
EKG delayed due to EKG machine in use and patient taken to CT scan.
[2024-08-26 11:52] LABS: OBS Int Ctl Valid YES; OBS1 POSITIVE (NEGATIVE)
[2024-08-26] MEDS: iohexoL 350 MG/ML 100 ML INFUS..BTL IV (12:08)
[2024-08-26] MEDS: Pantoprazole Sodium 40 MG/10 ML VIAL IVPUSH ×2 (12:46→17:30)
[2024-08-26 12:57] LABS: B Type Natriuretic Peptide 463 pg/mL (<100)
[2024-08-26] MEDS: Hum Prothrombin Cplx(PCC)4Fact 2,000 UNIT in Container,Empty 0 ML 480 UNIT IV (12:59)
--- NOTE | 2024-08-26 13:14 | PC.NURSE ---
patient presented to ED from home, states he has been feeling increasingly lethargic x3 with no BM x4 days then today black tarry stool. patient states he had a cardiac pace maker placed 07/24 with TAVR and was placed on xarelto. patient skin noted to be dry and intact, but pale, MM dry. patient IV access obtained in LFA #18 labs drawn and sent. patient placed on tele monitor, noted to be in paced sinus rhythm, rate 70s. patient is alert and oriented x4. ED provider made this RN aware patient needed transfusion and k centra due suspected internal bleeding and hemoglobin being low. secondary placed by other ED RN, patient medicated per MAR with kcentra mixed by pharmacy. patient is currently NPO while plan is on going
--- NOTE | 2024-08-26 13:59 | PM.IMHP ---
History of Present Illness Date of Service: 08/26/24 Chief Complaint: melena 79M PMH TAVR and pacer in 06/2024, DM, htn, hld, pafib on xarelto, obesity, presented with melena. Patient states he has been noticing black stools for the past 2-3 days. Started to feel significant fatigue until day of presentation when he was so weak he decided to call ambulance. In ED noted to have a hemoglobin of 5.6 down from 11.2 from 1 month ago. Also noted to have elevated transaminases. CT abdomen without source of acute bleed. Patient denies chest pain, shortness of breath, nausea vomiting. Review of Systems Review of Systems: Yes all other systems are reviewed and are negative [facility] Medical History Aortic stenosis Cardiac pacemaker in situ Speaking difficulty TIA (transient ischemic attack) Insomnia Hospital discharge follow-up History of echocardiogram Hypertriglyceridemia Tubular adenoma Dyspnea on exertion Obesity (BMI 30-39.9) Right shoulder injury Right shoulder pain Cough Raynaud disease Edema Hyperlipemia HTN (hypertension) Type 2 diabetes mellitus PAF (paroxysmal atrial fibrillation) Family History Father No problems noted. Mother No problems noted. Paternal Grandfather CVD (cardiovascular disease) Paternal Grandmother No problems noted. Maternal Grandfather CVD (cardiovascular disease) Maternal Grandmother No problems noted. 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 Cognitive needs: Yes (cane) Hearing needs: Yes (b/l hearing aids) Vision needs: Yes (reading glasses) Meds Allergies Allergy/AdvReac Type Severity Reaction Status Date / Time prednisone Allergy Unknown GI Verified 08/26/24 11:05 Active Medications: Current Medications Acetaminophen (Acetaminophen 325 Mg Tablet) 650 mg PO Q6H PRN PRN Reason: Pain, Mild 1-3,fever,headache Calcium Carbonate (Calcium Carbonate 750 Mg Tab.Chew) 750 mg PO Q4H PRN PRN Reason: Heartburn Magnesium Hydroxide (Milk Of Magnesia 30 Ml Oral.Susp) 30 ml PO DAILY PRN PRN Reason: Constipation Melatonin (Melatonin 3 Mg Tablet) 6 mg PO BEDTIME PRN PRN Reason: Insomnia Pantoprazole Sodium (Pantoprazole Sodium 40 Mg/10 Ml Vial) 40 mg IVPUSH BID@0630,1630 [facility] Sodium Chloride (0.9 % Sodium Chloride Flush 3 Ml Syringe) 3 ml IVFLUSH QSHIFT [facility] Home Medications ?Medication ?Instructions ?Recorded ?Confirmed ?Last Taken ?Type atorvastatin 40 mg tablet 40 mg PO BEDTIME 09/02/20 08/16/24 11/15/21 History sitagliptin phosphate 100 mg tablet 100 mg PO DAILY 03/17/21 08/16/24 07/27/24 History acetaminophen 325 mg tablet 650 mg PO Q8H PRN Pain 07/10/24 08/16/24 Unknown History cholecalciferol (vitamin D3) 25 25 mcg PO DAILY 07/28/24 08/16/24 07/27/24 History mcg (1,000 unit) tablet ferrous sulfate 325 mg (65 mg 325 mg PO DAILY 07/28/24 08/16/24 07/27/24 History iron) tablet omeprazole 20 mg tablet,delayed 20 mg PO DAILY 07/28/24 08/16/24 07/27/24 History release psyllium husk 0.4 gram capsule 0.4 g PO DAILY 07/28/24 08/16/24 07/27/24 History (Fiber (psyllium husk)) Physical Exam Vital Signs and Narrative: Vital Signs: Last Vital Signs Temp 97.8 F 08/26/24 12:46 Pulse 64 08/26/24 12:46 Resp 12 08/26/24 12:46 BP 124/38 L 08/26/24 12:46 Pulse Ox 92 08/26/24 12:46 O2 Del Method Room Air 08/26/24 12:46 BMI result Body Mass Index 31.3 General: AO X 3, no acute distress, pallor Resp: CTA bilateral, no accessory muscles used CVS: S1,S2,RRR, murmur GI: soft, non tender, non distended Neuro: motor grossly intact, alert Psych: appropriate affect, appropriate insight Results Labs 08/26/24 11:15 08/26/24 11:15 Labs: Laboratory Results - last 24 hr 08/26/24 08/26/24 08/26/24 11:15 11:41 12:41 MCV 90.2 MCH 28.9 MCHC 32.0 RDW 15.4 Plt Count 231 D MPV 10.3 Immature Gran % (Auto) 0.4 Neut % (Auto) 65.0 Lymph % (Auto) 19.8 L [place] % (Auto) 13.3 H Eos % (Auto) 0.9 Baso % (Auto) 0.6 Lymph # (Auto) 1.4 [place] # (Auto) 0.9 Eos # (Auto) 0.1 Baso # (Auto) 0.0 Abs Immat Gran (auto) 0.03 Absolute Neuts (auto) 4.5 Absolute Nucleated RBC 0.000 Nucleated RBC % (auto) 0.0 PT 44.3 H D INR 3.8 H APTT 39.9 H D Anion Gap 14 Estim Creat Clear Calc 50.4 Estimated GFR 51 Random Glucose 124 H Calcium 8.7 Total Bilirubin 0.6 AST 817 H ALT 810 H Alkaline Phosphatase 160 H B-Natriuretic Peptide 463 H Total Protein 6.2 L Albumin 3.7 Stool Occult Blood POSITIVE Blood Type O Positive Crossmatch See Detail Assessment and Plan (1) PAF (paroxysmal atrial fibrillation): Status: Acute Plan 79M PMH TAVR and pacer in 06/2024, DM, htn, hld, pafib on xarelto, obesity, presented with melena Acute blood loss anemia due to suspected upper GI bleed in a patient on rivaroxaban IV ppi, Kcentra, 2 units PRBC, NPO, GI eval Monitor hgb Transaminitis hold statin monitor gi eval Diabetes Insulin sliding scale pafib hold xarelto continue toprol dvt prophylaxis - mechanical due to bleed full code due to severe anemia expected to require atleast 2 midnights inpatient Quality Stroke Does the patient have a stroke diagnosis?: No VTE Prior VTE?: No VTE Risk Level:: Medical - moderate - high VTE Device Contraindication: N/A - Device Ordered VTE Drug Contraindication: Treatment Not Tolerated
--- NOTE | 2024-08-26 14:25 | PHA.MEDREC ---
Pharmacy Consult ? Medication Reconciliation Pharmacy has completed the medication reconciliation. Spoke with patient to confirm medications. He is no longer taking trazodone or amlodipine. We went over OTCs: omeprazole, iron, fiber caps, refresh, melatonin, tylenol, and D3. He cannot remember if he had Xarelto yesterday. He reports he did not take any medications today.
[2024-08-26 16:39] LABS: Glucose, Whole Blood 84 mg/dL (60-115)
[2024-08-26] MEDS: 0.9 % Sodium Chloride Flush 3 ML SYRINGE IVFLUSH (17:30)
[2024-08-26] MEDS: Gabapentin 300 MG CAPSULE PO (19:53)
[2024-08-26 20:18] LABS: Glucose, Whole Blood 85 mg/dL (60-115)
[2024-08-27] VITALS (10 sets, daily range): BP systolic 102–132; BP diastolic 42–61; PULSE 60–73; RESP 14–18; TEMP 36.2–37.1; O2SAT 94–100
[2024-08-27] MEDS: Pantoprazole Sodium 40 MG/10 ML VIAL IVPUSH (06:21)
[2024-08-27 07:10] LABS: Hematocrit 23.5 % (42.0-52.0); Hemoglobin 7.5 g/dl (14.0-18.0); Mean Corpuscular HGB Conc 31.9 g/dl (31.0-36.0); Mean Corpuscular Hemoglobin 28.2 pg (27.0-33.0); Mean Corpuscular Volume 88.3 fL (80.0-98.0); Mean Platelet Volume 10.1 fL (9.4-12.4); NRBC Pct Auto 0.3 /100WBC (0.0-0.2); Platelet Count 196 X10*3/uL (160-400); Red Blood Count 2.66 X10*6/uL (4.60-5.80); Red Cell Distribution Width 15.6 % (11.0-16.0); White Blood Count 8.8 X10*3/uL (4.8-10.8)
[2024-08-27 07:16] LABS: Alanine Aminotransferase 720 U/L (0-40); Albumin Level 3.5 g/dL (3.5-5.0); Alkaline Phosphatase 148 U/L (39-117); Anion Gap 15 (12-20); Aspartate Amino Transferase 565 U/L (5-37); Bilirubin Direct 0.6 mg/dL (0.0-0.5); Bilirubin Total 1.2 mg/dL (0.0-1.0); Blood Urea Nitrogen 23 mg/dL (9-16); Calcium 8.4 mg/dL (8.4-10.2); Carbon Dioxide 19 mmol/L (22-29); Chloride 109 mmol/L (96-108); Creatinine Clr Calc Pharmacy 59.5; Estimated Glomerular Filt Rate > 60; Glucose Random 89 mg/dL (60-115); Magnesium 1.9 mg/dL (1.6-2.6); Potassium 4.4 mmol/L (3.3-5.1); Sodium 139 mmol/L (135-145); Total Protein 5.8 g/dL (6.5-8.0)
[2024-08-27 07:48] LABS: Appearance Urine Clear; Color Urine Yellow; Glucose Urine UA Negative (Negative); Leukocyte Esterase Urine Negative (Negative); Nitrite Urine Negative (Negative); PH 5.5 (5.0-9.0); Specific Gravity - Urine >= 1.030 (1.005-1.025); Urine Blood Negative (Negative); Urine Ketones 15 mg/dL (Negative); Urine Protein Negative (Neg-Trace)
[2024-08-27 07:54] LABS: Glucose, Whole Blood 77 mg/dL (60-115)
--- NOTE | 2024-08-27 08:20 | HO.PM.IMPN ---
Subjective Subjective Date of Service: 08/27/24 Interval History: no further melena Physical Exam Vital Signs: Vital Signs: Last Vital Signs Temp 97.2 F 08/27/24 07:52 Pulse 64 08/27/24 07:52 Resp 18 08/27/24 07:52 BP 132/59 L 08/27/24 07:52 Pulse Ox 94 08/27/24 07:52 O2 Del Method Room Air 08/27/24 07:52 BMI result Body Mass Index 31.3 General: AO X 3, no acute distress Resp: CTA bilateral, no accessory muscles used CVS: S1,S2,RRR GI: soft, non tender, non distended Neuro: motor grossly intact, alert Psych: appropriate affect, appropriate insight Objective Data Active Medications Acetaminophen (Acetaminophen 325 Mg Tablet) 650 mg PO Q6H PRN PRN Reason: Pain, Mild 1-3,fever,headache Albuterol Sulfate (Albuterol Sulfate 90 Mcg 8 Gm Inhaler) 1 puff INHALE QID PRN PRN Reason: shortness of breath or wheezing Calcium Carbonate (Calcium Carbonate 750 Mg Tab.Chew) 750 mg PO Q4H PRN PRN Reason: Heartburn Dextrose (Dextrose 50 % 25 Gm/50 Ml Syringe) 25 gm IVPUSH Q15M PRN; Protocol PRN Reason: per Hypoglycemia Standing Ord. Gabapentin (Gabapentin 300 Mg Capsule) 300 mg PO BID [facility] Last Admin: 08/26/24 19:53 Dose: 300 mg Documented By: JOSEPH Glucose (Glucose Gel 15 Gm Gel..Gram.) 15 gm PO Q15M PRN; Protocol PRN Reason: per Hypoglycemia Standing Ord. Insulin Human Lispro (Insulin Lispro 100 Unit/Ml 3 Ml Vial) 0 unit SUBCUT QIDACHS [facility]; Protocol Last Admin: 08/27/24 08:19 Dose: Not Given Documented By: JOSEPH Non-Admin Reason: No Insulin Coverage Magnesium Hydroxide (Milk Of Magnesia 30 Ml Oral.Susp) 30 ml PO DAILY PRN PRN Reason: Constipation Melatonin (Melatonin 3 Mg Tablet) 6 mg PO BEDTIME PRN PRN Reason: Insomnia Metoprolol Succinate (Metoprolol Succinate Er 50 Mg Tab.Er.24h) 50 mg PO DAILY [facility]; Protocol Pantoprazole Sodium (Pantoprazole Sodium 40 Mg/10 Ml Vial) 40 mg IVPUSH BID@0630,1630 [facility] Last Admin: 08/27/24 06:21 Dose: 40 mg Documented By: ANTOINC Sodium Chloride (0.9 % Sodium Chloride Flush 3 Ml Syringe) 3 ml IVFLUSH QSHIFT [facility] Last Admin: 08/27/24 00:10 Dose: Not Given Documented By: ANTOINNatalie Non-Admin Reason: IV Running Vitamin D (Cholecalciferol (Vitamin D3) 25 Mcg Tablet) 25 mcg PO DAILY [facility] Labs 08/27/24 06:36 08/27/24 06:36 Labs: Laboratory Results - last 24 hr 08/26/24 08/26/24 08/26/24 11:15 11:41 12:41 MCV 90.2 MCH 28.9 MCHC 32.0 RDW 15.4 Plt Count 231 D MPV 10.3 Immature Gran % (Auto) 0.4 Neut % (Auto) 65.0 Lymph % (Auto) 19.8 L [place] % (Auto) 13.3 H Eos % (Auto) 0.9 Baso % (Auto) 0.6 Lymph # (Auto) 1.4 [place] # (Auto) 0.9 Eos # (Auto) 0.1 Baso # (Auto) 0.0 Abs Immat Gran (auto) 0.03 Absolute Neuts (auto) 4.5 Absolute Nucleated RBC 0.000 Nucleated RBC % (auto) 0.0 PT 44.3 H D INR 3.8 H APTT 39.9 H D Anion Gap 14 Estim Creat Clear Calc 50.4 Estimated GFR 51 POC Glucose Random Glucose 124 H Calcium 8.7 Magnesium Total Bilirubin 0.6 Direct Bilirubin AST 817 H ALT 810 H Alkaline Phosphatase 160 H B-Natriuretic Peptide 463 H Total Protein 6.2 L Albumin 3.7 Urine Color Urine Appearance Urine pH Ur Specific [place] Urine Protein Urine Glucose (UA) Urine Ketones Urine Blood Urine Nitrite Ur Leukocyte Esterase Stool Occult Blood POSITIVE Blood Type O Positive Antibody Screen NEGATIVE Crossmatch See Detail 08/26/24 08/26/24 08/27/24 16:33 20:15 00:20 MCV MCH MCHC RDW Plt Count MPV Immature Gran % (Auto) Neut % (Auto) Lymph % (Auto) [place] % (Auto) Eos % (Auto) Baso % (Auto) Lymph # (Auto) [place] # (Auto) Eos # (Auto) Baso # (Auto) Abs Immat Gran (auto) Absolute Neuts (auto) Absolute Nucleated RBC Nucleated RBC % (auto) PT INR APTT Anion Gap Estim Creat Clear Calc Estimated GFR POC Glucose 84 85 Random Glucose Calcium Magnesium Total Bilirubin Direct Bilirubin AST ALT Alkaline Phosphatase B-Natriuretic Peptide Total Protein Albumin Urine Color Yellow Urine Appearance Clear Urine pH 5.5 Ur Specific [place] >= 1.030 H Urine Protein Negative Urine Glucose (UA) Negative Urine Ketones 15 Urine Blood Negative Urine Nitrite Negative Ur Leukocyte Esterase Negative Stool Occult Blood Blood Type Antibody Screen Crossmatch 08/27/24 08/27/24 06:36 07:50 MCV 88.3 MCH 28.2 MCHC 31.9 RDW 15.6 Plt Count 196 MPV 10.1 Immature Gran % (Auto) Neut % (Auto) Lymph % (Auto) [place] % (Auto) Eos % (Auto) Baso % (Auto) Lymph # (Auto) [place] # (Auto) Eos # (Auto) Baso # (Auto) Abs Immat Gran (auto) Absolute Neuts (auto) Absolute Nucleated RBC 0.030 H Nucleated RBC % (auto) 0.3 H PT INR APTT Anion Gap 15 Estim Creat Clear Calc 59.5 Estimated GFR > 60 POC Glucose 77 Random Glucose 89 Calcium 8.4 Magnesium 1.9 Total Bilirubin 1.2 H Direct Bilirubin 0.6 H AST 565 H ALT 720 H Alkaline Phosphatase 148 H B-Natriuretic Peptide Total Protein 5.8 L Albumin 3.5 Urine Color Urine Appearance Urine pH Ur Specific [place] Urine Protein Urine Glucose (UA) Urine Ketones Urine Blood Urine Nitrite Ur Leukocyte Esterase Stool Occult Blood Blood Type Antibody Screen Crossmatch Assessment and Plan (1) PAF (paroxysmal atrial fibrillation): Status: Acute Plan 79M PMH TAVR and pacer in 06/2024, DM, htn, hld, pafib on xarelto, obesity, presented with melena Acute blood loss anemia due to suspected upper GI bleed in a patient on rivaroxaban IV ppi, Kcentra, 2 units PRBC 08/26 increased from 5.6 to 7.5, NPO, GI eval - plan EGD Monitor hgb Transaminitis hold statin monitor gi eval Diabetes Insulin sliding scale pafib hold xarelto continue toprol dvt prophylaxis - mechanical due to bleed full code reason for continued hospitalization:gi bleed Quality Stroke Does the patient have a stroke diagnosis?: No VTE Prior VTE?: No VTE Risk Level:: Medical - moderate - high VTE Device Contraindication: N/A - Device Ordered VTE Drug Contraindication: Treatment Not Tolerated
--- NOTE | 2024-08-27 08:53 | P.CNGI_ITS ---
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 Patient reports symptoms started almost 1 week ago with loss of appetite and black stools. No overt abdominal pain, nausea or vomiting. The last few days, he has also been noticing increased weakness and fatigue and lightheadedness. No chest pain, shortness of breath. He does endorse taking intermittent NSAIDs in the last 1 month for headaches. He also reports a remote history of duodenal ulcer. Last colonoscopy 2019 (Dr Saha) fair prep. x1 hepatic flexure T.A In the emergency room, he was noted to be hemodynamically stable. Labs with hemoglobin of 5.6 down from 11.2 last month. He was also noted to have mild DALE and elevated LFTs with AST ALT in the 800s normal bilirubin. CT abdomen and pelvis with and without IV contrast does not show any hepatic lesions or CBD obstruction. Review of Systems 2 Review of Systems: Yes all other systems are reviewed and are negative [facility] Past Medical History Medical History Aortic stenosis Cardiac pacemaker in situ Speaking difficulty TIA (transient ischemic attack) Insomnia Hospital discharge follow-up History of echocardiogram Hypertriglyceridemia Tubular adenoma Dyspnea on exertion Obesity (BMI 30-39.9) Right shoulder injury Right shoulder pain Cough Raynaud disease Edema Hyperlipemia HTN (hypertension) Type 2 diabetes mellitus PAF (paroxysmal atrial fibrillation) Family History Family History Father No problems noted. Mother No problems noted. Paternal Grandfather CVD (cardiovascular disease) Paternal Grandmother No problems noted. Maternal Grandfather CVD (cardiovascular disease) Maternal Grandmother No problems noted. 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 Cognitive needs: Yes (cane) Hearing needs: Yes (b/l hearing aids) Vision needs: Yes (reading glasses) Meds Allergies Allergy/AdvReac Type Severity Reaction Status Date / Time prednisone Allergy Unknown GI Verified 08/26/24 11:05 Active Medications: Current Medications Acetaminophen (Acetaminophen 325 Mg Tablet) 650 mg PO Q6H PRN PRN Reason: Pain, Mild 1-3,fever,headache Albuterol Sulfate (Albuterol Sulfate 90 Mcg 8 Gm Inhaler) 1 puff INHALE QID PRN PRN Reason: shortness of breath or wheezing Calcium Carbonate (Calcium Carbonate 750 Mg Tab.Chew) 750 mg PO Q4H PRN PRN Reason: Heartburn Dextrose (Dextrose 50 % 25 Gm/50 Ml Syringe) 25 gm IVPUSH Q15M PRN; Protocol PRN Reason: per Hypoglycemia Standing Ord. Gabapentin (Gabapentin 300 Mg Capsule) 300 mg PO BID [facility] Last Admin: 08/26/24 19:53 Dose: 300 mg Glucose (Glucose Gel 15 Gm Gel..Gram.) 15 gm PO Q15M PRN; Protocol PRN Reason: per Hypoglycemia Standing Ord. Insulin Human Lispro (Insulin Lispro 100 Unit/Ml 3 Ml Vial) 0 unit SUBCUT QIDACHS [facility]; Protocol Last Admin: 08/27/24 08:19 Dose: Not Given Magnesium Hydroxide (Milk Of Magnesia 30 Ml Oral.Susp) 30 ml PO DAILY PRN PRN Reason: Constipation Melatonin (Melatonin 3 Mg Tablet) 6 mg PO BEDTIME PRN PRN Reason: Insomnia Metoprolol Succinate (Metoprolol Succinate Er 50 Mg Tab.Er.24h) 50 mg PO DAILY [facility]; Protocol Pantoprazole Sodium (Pantoprazole Sodium 40 Mg/10 Ml Vial) 40 mg IVPUSH BID@0630,1630 [facility] Last Admin: 08/27/24 06:21 Dose: 40 mg Sodium Chloride (0.9 % Sodium Chloride Flush 3 Ml Syringe) 3 ml IVFLUSH QSHIFT [facility] Last Admin: 08/27/24 00:10 Dose: Not Given Vitamin D (Cholecalciferol (Vitamin D3) 25 Mcg Tablet) 25 mcg PO DAILY [facility] Home Medications ?Medication ?Instructions ?Recorded ?Confirmed ?Last Taken ?Type atorvastatin 40 mg tablet 40 mg PO BEDTIME 09/02/20 08/26/24 11/15/21 History sitagliptin phosphate 100 mg tablet 100 mg PO DAILY 03/17/21 08/26/24 07/27/24 History acetaminophen 325 mg tablet 650 mg PO Q8H PRN Pain 07/10/24 08/26/24 Unknown History cholecalciferol (vitamin D3) 25 25 mcg PO DAILY 07/28/24 08/26/24 07/27/24 History mcg (1,000 unit) tablet ferrous sulfate 325 mg (65 mg 325 mg PO DAILY 07/28/24 08/26/24 07/27/24 History iron) tablet omeprazole 20 mg tablet,delayed 20 mg PO DAILY 07/28/24 08/26/24 07/27/24 History release psyllium husk 0.4 gram capsule 0.4 g PO DAILY 07/28/24 08/26/24 07/27/24 History (Fiber (psyllium husk)) carboxymethylcellulose sodium 1 % 1 drp ophthalmic (eye) BID PRN Dry 08/26/24 08/26/24 Unknown History eye liquid gel drops Eyes melatonin 10 mg tablet 10 mg PO BEDTIME 08/26/24 08/26/24 08/25/24 History Physical Exam 2 Vital Signs: Vital Signs: Last Vital Signs Temp 97.2 F 08/27/24 07:52 Pulse 64 08/27/24 07:52 Resp 18 08/27/24 07:52 BP 132/59 L 08/27/24 07:52 Pulse Ox 94 08/27/24 07:52 O2 Del Method Room Air 08/27/24 07:52 BMI result Body Mass Index 31.3 Elderly gentleman, no apparent distress Nonicteric Abdomen soft, nondistended, mild tenderness in epigastrium No overt respiratory distress Alert and oriented x3, no focal deficits Results Labs 08/27/24 06:36 08/27/24 06:36 Labs: Short CBC 08/26/24 08/27/24 Range/Units 11:15 06:36 WBC 6.9 8.8 (4.8-10.8) X10*3/uL Hgb 5.6 L* D 7.5 L D (14.0-18.0) g/dl Hct 17.5 L* D 23.5 L D (42.0-52.0) % Plt Count 231 D 196 (160-400) X10*3/uL BMP 08/26/24 08/27/24 11:15 06:36 Sodium 136 139 Potassium 4.3 4.4 Chloride 107 109 H Carbon Dioxide 19 L 19 L BUN 29 H 23 H Creatinine 1.36 1.15 Calcium 8.7 8.4 Liver Function 08/26/24 08/27/24 Range/Units 11:15 06:36 Total Bilirubin 0.6 1.2 H (0.0-1.0) mg/dL Direct Bilirubin 0.6 H (0.0-0.5) mg/dL AST 817 H 565 H (5-37) U/L ALT 810 H 720 H (0-40) U/L Alkaline Phosphatase 160 H 148 H (39-117) U/L Albumin 3.7 3.5 (3.5-5.0) g/dL Urine 08/27/24 Range/Units 00:20 Urine Color Yellow Urine Appearance Clear Urine pH 5.5 (5.0-9.0) Ur Specific [place] >= 1.030 H (1.005-1.025) Urine Protein Negative (Neg-Trace) mg/dL Urine Glucose (UA) Negative (Negative) mg/dL Assessment and Plan (1) Anemia: Status: Acute (2) Acute GI bleeding: Status: Acute (3) Cardiac pacemaker in situ: Status: Acute (4) S/P TAVR (transcatheter aortic valve replacement): Status: Acute (5) Elevated LFTs: Status: Acute Plan 1. Anemia/UGIB Acute anemia blood loss is likely secondary upper GI bleed given description of symptoms. Differentials include peptic ulcer disease, gastritis/esophagitis, AVM, Dieulafoy's. Plan: -urgent upper endoscopy to be booked today -pls keep NPO -hold AC -please maintain IV x2 at all times -monitor H&H and transfuse for hemoglobin less than 7 -agree with PPI IV b.i.d. -appreciate cardiology input for risk stratification 2. Elevated LFTs Most likely secondary to hypoxic hepatitis secondary to profound anemia. These have already started to trend down. Bilirubin often lags behind. Plan: -Daily LFTs and INR -If transaminases not improved by 50% tomorrow, consider ultrasound abdomen with Doppler chente as anticoagulation on hold Thank you for allowing me to participate in his care. Please do not hesitate to reach out for any questions or concerns. Procedures Date of Service Date of Service: 08/27/24
[2024-08-27] MEDS: Gabapentin 300 MG CAPSULE PO ×2 (09:01→20:09)
[2024-08-27] MEDS: Metoprolol Succinate ER 50 MG TAB.ER.24H PO (09:01)
[2024-08-27] MEDS: Cholecalciferol (Vitamin D3) 25 MCG TABLET PO (09:01)
[2024-08-27] MEDS: 0.9 % Sodium Chloride Flush 3 ML SYRINGE IVFLUSH ×2 (09:02→20:09)
[2024-08-27] MEDS: Acetaminophen 325 MG TABLET 650 MG PO (09:03)
--- NOTE | 2024-08-27 10:08 | P.CONCA_ITS ---
History of Present Illness History of Present Illness Date of Service: 08/27/24 Requesting physician: Tahmina Brown Chief complaint: GI Bleed, preop assessment Narrative: Pleasant 79 year gentleman who has background of severe aortic valve stenosis status post transcatheter aortic valve replacement in June 2024. He said he was doing fine till recently when he started passing black stools. He came into the emergency department for the same reason and was noticed to be anemic. He is being considered for endoscopy and we have been asked to assess his perioperative cardiovascular risk. He is denying any chest discomfort shortness of breath. Since the transcatheter aortic valve replacement, he has been doing well. He was feeling fatigued and tired before transcatheter aortic valve replacement. He takes naproxen off and on. He also uses aspirin off and on. He is on Xarelto for anticoagulation for history of atrial fibrillation. [facility] Past Medical History Medical History Aortic stenosis Cardiac pacemaker in situ Speaking difficulty TIA (transient ischemic attack) Insomnia Hospital discharge follow-up History of echocardiogram Hypertriglyceridemia Tubular adenoma Dyspnea on exertion Obesity (BMI 30-39.9) Right shoulder injury Right shoulder pain Cough Raynaud disease Edema Hyperlipemia HTN (hypertension) Type 2 diabetes mellitus PAF (paroxysmal atrial fibrillation) Family History Family History Father No problems noted. Mother No problems noted. Paternal Grandfather CVD (cardiovascular disease) Paternal Grandmother No problems noted. Maternal Grandfather CVD (cardiovascular disease) Maternal Grandmother No problems noted. 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 Cognitive needs: Yes (cane) Hearing needs: Yes (b/l hearing aids) Vision needs: Yes (reading glasses) Meds Allergies Allergy/AdvReac Type Severity Reaction Status Date / Time prednisone Allergy Unknown GI Verified 08/26/24 11:05 Active Medications: Current Medications Acetaminophen (Acetaminophen 325 Mg Tablet) 650 mg PO Q6H PRN PRN Reason: Pain, Mild 1-3,fever,headache Last Admin: 08/27/24 09:03 Dose: 650 mg Albuterol Sulfate (Albuterol Sulfate 90 Mcg 8 Gm Inhaler) 1 puff INHALE QID PRN PRN Reason: shortness of breath or wheezing Calcium Carbonate (Calcium Carbonate 750 Mg Tab.Chew) 750 mg PO Q4H PRN PRN Reason: Heartburn Dextrose (Dextrose 50 % 25 Gm/50 Ml Syringe) 25 gm IVPUSH Q15M PRN; Protocol PRN Reason: per Hypoglycemia Standing Ord. Gabapentin (Gabapentin 300 Mg Capsule) 300 mg PO BID [facility] Last Admin: 08/27/24 09:01 Dose: 300 mg Glucose (Glucose Gel 15 Gm Gel..Gram.) 15 gm PO Q15M PRN; Protocol PRN Reason: per Hypoglycemia Standing Ord. Insulin Human Lispro (Insulin Lispro 100 Unit/Ml 3 Ml Vial) 0 unit SUBCUT QIDACHS [facility]; Protocol Last Admin: 08/27/24 08:19 Dose: Not Given Magnesium Hydroxide (Milk Of Magnesia 30 Ml Oral.Susp) 30 ml PO DAILY PRN PRN Reason: Constipation Melatonin (Melatonin 3 Mg Tablet) 6 mg PO BEDTIME PRN PRN Reason: Insomnia Metoprolol Succinate (Metoprolol Succinate Er 50 Mg Tab.Er.24h) 50 mg PO DAILY [facility]; Protocol Last Admin: 08/27/24 09:01 Dose: 50 mg Pantoprazole Sodium (Pantoprazole Sodium 40 Mg/10 Ml Vial) 40 mg IVPUSH BID@0630,1630 [facility] Last Admin: 08/27/24 06:21 Dose: 40 mg Sodium Chloride (0.9 % Sodium Chloride Flush 3 Ml Syringe) 3 ml IVFLUSH QSHIFT [facility] Last Admin: 08/27/24 09:02 Dose: 3 ml Vitamin D (Cholecalciferol (Vitamin D3) 25 Mcg Tablet) 25 mcg PO DAILY [facility] Last Admin: 08/27/24 09:01 Dose: 25 mcg Home Medications ?Medication ?Instructions ?Recorded ?Confirmed ?Last Taken ?Type atorvastatin 40 mg tablet 40 mg PO BEDTIME 09/02/20 08/26/24 11/15/21 History sitagliptin phosphate 100 mg tablet 100 mg PO DAILY 03/17/21 08/26/24 07/27/24 History acetaminophen 325 mg tablet 650 mg PO Q8H PRN Pain 07/10/24 08/26/24 Unknown History cholecalciferol (vitamin D3) 25 25 mcg PO DAILY 07/28/24 08/26/24 07/27/24 History mcg (1,000 unit) tablet ferrous sulfate 325 mg (65 mg 325 mg PO DAILY 07/28/24 08/26/24 07/27/24 History iron) tablet omeprazole 20 mg tablet,delayed 20 mg PO DAILY 07/28/24 08/26/24 07/27/24 History release psyllium husk 0.4 gram capsule 0.4 g PO DAILY 07/28/24 08/26/24 07/27/24 History (Fiber (psyllium husk)) carboxymethylcellulose sodium 1 % 1 drp ophthalmic (eye) BID PRN Dry 08/26/24 08/26/24 Unknown History eye liquid gel drops Eyes melatonin 10 mg tablet 10 mg PO BEDTIME 08/26/24 08/26/24 08/25/24 History Physical Exam 2 Vital Signs: Vital Signs: Last Vital Signs Temp 97.2 F 08/27/24 07:52 Pulse 64 08/27/24 07:52 Resp 18 08/27/24 07:52 BP 132/59 L 08/27/24 07:52 Pulse Ox 94 08/27/24 07:52 O2 Del Method Room Air 08/27/24 07:52 BMI result Body Mass Index 31.3 GENERAL APPEARANCE: in no acute distress, pleasant. NECK: no carotid bruit, no jugular venous distention. SKIN: no suspicious lesions, warm and dry. HEART: no murmurs, regular rate and rhythm. LUNGS: clear to auscultation bilaterally. ABDOMEN: soft, nontender. EXTREMITIES: no edema. PERIPHERAL PULSES: equal. NEUROLOGIC: No gross deficits, AAO X 3 Objective Labs and Meds 08/27/24 06:36 08/27/24 06:36 Lab results: Laboratory Results - last 24 hr 08/26/24 08/26/24 08/26/24 11:15 11:41 12:41 WBC 6.9 RBC 1.94 L D Hgb 5.6 L* D Hct 17.5 L* D MCV 90.2 MCH 28.9 MCHC 32.0 RDW 15.4 Plt Count 231 D MPV 10.3 Immature Gran % (Auto) 0.4 Neut % (Auto) 65.0 Lymph % (Auto) 19.8 L Price % (Auto) 13.3 H Eos % (Auto) 0.9 Baso % (Auto) 0.6 Lymph # (Auto) 1.4 Price # (Auto) 0.9 Eos # (Auto) 0.1 Baso # (Auto) 0.0 Abs Immat Gran (auto) 0.03 Absolute Neuts (auto) 4.5 Absolute Nucleated RBC 0.000 Nucleated RBC % (auto) 0.0 PT 44.3 H D INR 3.8 H APTT 39.9 H D Sodium 136 Potassium 4.3 Chloride 107 Carbon Dioxide 19 L Anion Gap 14 BUN 29 H Creatinine 1.36 Estim Creat Clear Calc 50.4 Estimated GFR 51 POC Glucose Random Glucose 124 H Calcium 8.7 Magnesium Total Bilirubin 0.6 Direct Bilirubin AST 817 H ALT 810 H Alkaline Phosphatase 160 H B-Natriuretic Peptide 463 H Total Protein 6.2 L Albumin 3.7 Urine Color Urine Appearance Urine pH Ur Specific [place] Urine Protein Urine Glucose (UA) Urine Ketones Urine Blood Urine Nitrite Ur Leukocyte Esterase Stool Occult Blood POSITIVE Blood Type O Positive Antibody Screen NEGATIVE Crossmatch See Detail 08/26/24 08/26/24 08/27/24 16:33 20:15 00:20 WBC RBC Hgb Hct MCV MCH MCHC RDW Plt Count MPV Immature Gran % (Auto) Neut % (Auto) Lymph % (Auto) Price % (Auto) Eos % (Auto) Baso % (Auto) Lymph # (Auto) Price # (Auto) Eos # (Auto) Baso # (Auto) Abs Immat Gran (auto) Absolute Neuts (auto) Absolute Nucleated RBC Nucleated RBC % (auto) PT INR APTT Sodium Potassium Chloride Carbon Dioxide Anion Gap BUN Creatinine Estim Creat Clear Calc Estimated GFR POC Glucose 84 85 Random Glucose Calcium Magnesium Total Bilirubin Direct Bilirubin AST ALT Alkaline Phosphatase B-Natriuretic Peptide Total Protein Albumin Urine Color Yellow Urine Appearance Clear Urine pH 5.5 Ur Specific [place] >= 1.030 H Urine Protein Negative Urine Glucose (UA) Negative Urine Ketones 15 Urine Blood Negative Urine Nitrite Negative Ur Leukocyte Esterase Negative Stool Occult Blood Blood Type Antibody Screen Crossmatch 08/27/24 08/27/24 06:36 07:50 WBC 8.8 RBC 2.66 L D Hgb 7.5 L D Hct 23.5 L D MCV 88.3 MCH 28.2 MCHC 31.9 RDW 15.6 Plt Count 196 MPV 10.1 Immature Gran % (Auto) Neut % (Auto) Lymph % (Auto) Price % (Auto) Eos % (Auto) Baso % (Auto) Lymph # (Auto) Price # (Auto) Eos # (Auto) Baso # (Auto) Abs Immat Gran (auto) Absolute Neuts (auto) Absolute Nucleated RBC 0.030 H Nucleated RBC % (auto) 0.3 H PT INR APTT Sodium 139 Potassium 4.4 Chloride 109 H Carbon Dioxide 19 L Anion Gap 15 BUN 23 H Creatinine 1.15 Estim Creat Clear Calc 59.5 Estimated GFR > 60 POC Glucose 77 Random Glucose 89 Calcium 8.4 Magnesium 1.9 Total Bilirubin 1.2 H Direct Bilirubin 0.6 H AST 565 H ALT 720 H Alkaline Phosphatase 148 H B-Natriuretic Peptide Total Protein 5.8 L Albumin 3.5 Urine Color Urine Appearance Urine pH Ur Specific [place] Urine Protein Urine Glucose (UA) Urine Ketones Urine Blood Urine Nitrite Ur Leukocyte Esterase Stool Occult Blood Blood Type Antibody Screen Crossmatch Assessment and Plan (1) Preop cardiovascular exam: Status: Acute Plan Pleasant 79 year gentleman who has background history of severe aortic valve stenosis status post transcatheter aortic valve replacement in June 2024. Clinically not in heart failure. Denying any chest discomfort shortness of breath. He has been passing black stools and has some epigastric discomfort and I think he had upper GI blood loss. He is intermediate risk for perioperative complications and should proceed with endoscopy. Hold Nano for now. Thank you for allowing me to participate in the care of your patient. Please feel free to contact me if you have any questions. Procedures Date of Service Date of Service: 08/27/24
--- NOTE | 2024-08-27 10:49 | MHC.CM.PN ---
Addendum entered by Emilie Alvarez RN 08/27/24 14:39: CM RECEIVED CALL ABCK FROM PT'S SON NAJMA WHO IS TRYING TO GET ASSISTANCE IN HOME FOR PT AND FOR PT'S W/PARKINSONS, TASK/REF PLACED TO [facility]. NAJMA REPORTS PT DOES RECEIVE MOW'S HOWEVER PT COULD USE ASSISTANCE W/CLEANING/LAUNDRY PT/FAMILY CONCERNED ABOUT PT GOING UP AND DOWN STAIRS FOR LAUNDRY. PT ALSO HAS NOT BEEN ABLE TO KEEP UP W/CARING FOR SINCE CARDIAC SURGERY AT [facility] APPROX ONE MONTH AGO. REF/TASK PLACED TO [facility], LIAISON WILL NOT BE IN UNTIL THURS/FRI THIS WEEK. Addendum entered by Emilie Alvarez RN 08/27/24 14:08: CM RECEIVED MESSAGE TO CALL PT'S SON NAJMA [phone], PT GIVES VERBAL CONSENT FOR CM TO SPEAK W/NAJMA, CM ATTEMPTED TO RETURN CALL AT 2:05PM, NO ANSWER AND DETAILED MESSAGE LEFT. Original Note: IMM 08/27/24, PT ADMITTED W/GIB, ? UGIB, CARDIO AND GI PENDING, ANTIC PLAN FOR EGD TODAY. CM MET W/PT WHO REPORTS HE LIVES W/, USES A CANE ON OCCASION AND HAS A ROLLATOR AT HOME WELL, PT REPORTS HE IS ACTIVE W/[employer] AND NO OTHER SERVICES, PT'S GOAL FOR DC IS HOME W/RESUMP OF [facility] SERVICES. PCP ON FILE VERIFIED, PT REPORTS HIS SISTER KEYA IS HIS HCP AND HAS A COPY AT HOME, PT CURRENTLY DECLINES TO COMPLETE A NEW HCP.
[2024-08-27 12:04] LABS: Glucose, Whole Blood 77 mg/dL (60-115)
--- NOTE | 2024-08-27 17:06 | P.OP_ITS ---
Operative Note Operative Note Date of Service: 08/27/24 Narrative: Procedure: Esophagogastroduodenoscopy Endoscopist: Tahmina Brown MD Indication: Anemia UGIB Anesthesia Provider: Dr Kashmir Bell Anesthesia Type: MAC ?? EGD Procedure:?? The procedure, indications, preparation and potential complications were reviewed with the patient, who indicated understanding and gave written informed consent to proceed. A physical exam was performed. A distal tip was attached to the scope and the endoscope was introduced through the mouth, and advanced to the second part of duodenum. The mucosa was carefully examined on slow withdrawal of the endoscope. The patient tolerated the procedure well. There were no immediate complications.? ? EGD Findings:? * Esophagus:? Normal mucosa noted in the entire esophagus. The Z line was at 41 with a 3 cm hiatal hernia with the diaphragmatic pinch at 44 cm. * Stomach:? Normal mucosa was noted in the stomach. Retroflexion was performed in the cardia. * Duodenum: Erythema and edema noted in the duodenal bulb. There was a 15 mm clean based ulcer noted in the 1st portion duodenum on the anterior aspect. This was not bleeding. ? EGD Impressions:? * Normal esophagus * Normal stomach * Bulbar duodenitis * [place] III duodenal ulcer ?? Recommendations:?? * Biopsies were not taken due to INR >3 * Bleeding likely 2/2 duodenal ulcer * Recommend omeprazole 20 bid x 8 weeks and then once daily * AVOID NSAIDs * Resume anticoagulation tomorrow AM * Consider IV venofer 200 mg one dose while pt in house Above has been reviewed with the patient.
--- NOTE | 2024-08-27 17:18 | P.CONAN_ITS ---
[facility] Active Problems Active Problems: All Active Problems (Updated 08/27/24 @ 12:32 by Tahmina Brown MD) Elevated LFTs (Acute) Preop cardiovascular exam (Acute) Transaminitis (Acute) Anemia (Acute) Acute GI bleeding (Acute) Cardiac pacemaker in situ (Acute) S/P TAVR (transcatheter aortic valve replacement) (Acute) NSVT (nonsustained ventricular tachycardia) (Acute) Speaking difficulty (Acute) TIA (transient ischemic attack) (Acute) Rotator cuff insufficiency of left shoulder (Acute) Insomnia (Acute) Hospital discharge follow-up (Acute) Hypertriglyceridemia (Acute) Tubular adenoma (Acute) Dyspnea on exertion (Acute) Obesity (BMI 30-39.9) (Acute) Right shoulder injury (Acute) Right shoulder pain (Acute) Cough (Acute) History of cardiac cath (Acute) Normochromic normocytic anemia (Acute) Numbness and tingling in left hand (Acute) Osteoarthritis of left hand (Acute) Edema (Acute) Hyperlipemia (Acute) HTN (hypertension) (Acute) Type 2 diabetes mellitus (Acute) PAF (paroxysmal atrial fibrillation) (Acute) Past Medical History Medical History Aortic stenosis Cardiac pacemaker in situ Speaking difficulty TIA (transient ischemic attack) Insomnia Hospital discharge follow-up History of echocardiogram Hypertriglyceridemia Tubular adenoma Dyspnea on exertion Obesity (BMI 30-39.9) Right shoulder injury Right shoulder pain Cough Raynaud disease Edema Hyperlipemia HTN (hypertension) Type 2 diabetes mellitus PAF (paroxysmal atrial fibrillation) Family History Family History Father No problems noted. Mother No problems noted. Paternal Grandfather CVD (cardiovascular disease) Paternal Grandmother No problems noted. Maternal Grandfather CVD (cardiovascular disease) Maternal Grandmother No problems noted. Family history of problems with anesthesia: No Surgical History Surgical History S/P TAVR (transcatheter aortic valve replacement) History of colonoscopy (~01/04/20) History of cardiac cath History of cataract surgery History of Problems with Anesthesia: No 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 Cognitive needs: Yes (cane) Hearing needs: Yes (b/l hearing aids) Vision needs: Yes (reading glasses) Meds Allergies Allergy/AdvReac Type Severity Reaction Status Date / Time prednisone Allergy Unknown GI Verified 08/26/24 11:05 Active Medications: Current Medications Acetaminophen (Acetaminophen 325 Mg Tablet) 650 mg PO Q6H PRN PRN Reason: Pain, Mild 1-3,fever,headache Last Admin: 08/27/24 09:03 Dose: 650 mg Albuterol Sulfate (Albuterol Sulfate 90 Mcg 8 Gm Inhaler) 1 puff INHALE QID PRN PRN Reason: shortness of breath or wheezing Calcium Carbonate (Calcium Carbonate 750 Mg Tab.Chew) 750 mg PO Q4H PRN PRN Reason: Heartburn Dextrose (Dextrose 50 % 25 Gm/50 Ml Syringe) 25 gm IVPUSH Q15M PRN; Protocol PRN Reason: per Hypoglycemia Standing Ord. Gabapentin (Gabapentin 300 Mg Capsule) 300 mg PO BID [facility] Last Admin: 08/27/24 09:01 Dose: 300 mg Glucose (Glucose Gel 15 Gm Gel..Gram.) 15 gm PO Q15M PRN; Protocol PRN Reason: per Hypoglycemia Standing Ord. Insulin Human Lispro (Insulin Lispro 100 Unit/Ml 3 Ml Vial) 0 unit SUBCUT QIDACHS [facility]; Protocol Last Admin: 08/27/24 16:51 Dose: Not Given Magnesium Hydroxide (Milk Of Magnesia 30 Ml Oral.Susp) 30 ml PO DAILY PRN PRN Reason: Constipation Melatonin (Melatonin 3 Mg Tablet) 6 mg PO BEDTIME PRN PRN Reason: Insomnia Metoprolol Succinate (Metoprolol Succinate Er 50 Mg Tab.Er.24h) 50 mg PO DAILY [facility]; Protocol Last Admin: 08/27/24 09:01 Dose: 50 mg Pantoprazole Sodium (Pantoprazole Sodium 40 Mg/10 Ml Vial) 40 mg IVPUSH BID@0630,1630 [facility] Last Admin: 08/27/24 16:51 Dose: Not Given Sodium Chloride (0.9 % Sodium Chloride Flush 3 Ml Syringe) 3 ml IVFLUSH QSHIFT [facility] Last Admin: 08/27/24 16:51 Dose: Not Given Vitamin D (Cholecalciferol (Vitamin D3) 25 Mcg Tablet) 25 mcg PO DAILY [facility] Last Admin: 08/27/24 09:01 Dose: 25 mcg Home Medications ?Medication ?Instructions ?Recorded ?Confirmed ?Last Taken ?Type atorvastatin 40 mg tablet 40 mg PO BEDTIME 09/02/20 08/26/24 11/15/21 History sitagliptin phosphate 100 mg tablet 100 mg PO DAILY 03/17/21 08/26/24 07/27/24 History acetaminophen 325 mg tablet 650 mg PO Q8H PRN Pain 07/10/24 08/26/24 Unknown History cholecalciferol (vitamin D3) 25 25 mcg PO DAILY 07/28/24 08/26/24 07/27/24 History mcg (1,000 unit) tablet ferrous sulfate 325 mg (65 mg 325 mg PO DAILY 07/28/24 08/26/24 07/27/24 History iron) tablet omeprazole 20 mg tablet,delayed 20 mg PO DAILY 07/28/24 08/26/24 07/27/24 History release psyllium husk 0.4 gram capsule 0.4 g PO DAILY 07/28/24 08/26/24 07/27/24 History (Fiber (psyllium husk)) carboxymethylcellulose sodium 1 % 1 drp ophthalmic (eye) BID PRN Dry 08/26/24 08/26/24 Unknown History eye liquid gel drops Eyes melatonin 10 mg tablet 10 mg PO BEDTIME 08/26/24 08/26/24 08/25/24 History Exam Height,Weight and Vital Signs: Height 5 ft 9 in Weight 96 kg Last Vital Signs Temp 97.3 F 08/27/24 15:30 Pulse 64 08/27/24 15:30 Resp 16 08/27/24 15:30 BP 129/52 L 08/27/24 15:30 Pulse Ox 96 08/27/24 15:30 O2 Del Method Room Air 08/27/24 15:30 Pertinent Lab Results Pertinent Lab Results: Laboratory Tests 08/26/24 08/26/24 08/26/24 11:15 11:41 12:41 WBC 6.9 RBC 1.94 L D Hgb 5.6 L* D Hct 17.5 L* D MCV 90.2 MCH 28.9 MCHC 32.0 RDW 15.4 Plt Count 231 D MPV 10.3 Immature Gran % (Auto) 0.4 Neut % (Auto) 65.0 Lymph % (Auto) 19.8 L [place] % (Auto) 13.3 H Eos % (Auto) 0.9 Baso % (Auto) 0.6 Lymph # (Auto) 1.4 [place] # (Auto) 0.9 Eos # (Auto) 0.1 Baso # (Auto) 0.0 Abs Immat Gran (auto) 0.03 Absolute Neuts (auto) 4.5 Absolute Nucleated RBC 0.000 Nucleated RBC % (auto) 0.0 PT 44.3 H D INR 3.8 H APTT 39.9 H D Sodium 136 Potassium 4.3 Chloride 107 Carbon Dioxide 19 L Anion Gap 14 BUN 29 H Creatinine 1.36 Estim Creat Clear Calc 50.4 Estimated GFR 51 POC Glucose Random Glucose 124 H Calcium 8.7 Magnesium Total Bilirubin 0.6 Direct Bilirubin AST 817 H ALT 810 H Alkaline Phosphatase 160 H B-Natriuretic Peptide 463 H Total Protein 6.2 L Albumin 3.7 Urine Color Urine Appearance Urine pH Ur Specific [place] Urine Protein Urine Glucose (UA) Urine Ketones Urine Blood Urine Nitrite Ur Leukocyte Esterase Stool Occult Blood POSITIVE Blood Type O Positive Antibody Screen NEGATIVE Crossmatch See Detail 08/26/24 08/26/24 08/27/24 16:33 20:15 00:20 WBC RBC Hgb Hct MCV MCH MCHC RDW Plt Count MPV Immature Gran % (Auto) Neut % (Auto) Lymph % (Auto) [place] % (Auto) Eos % (Auto) Baso % (Auto) Lymph # (Auto) [place] # (Auto) Eos # (Auto) Baso # (Auto) Abs Immat Gran (auto) Absolute Neuts (auto) Absolute Nucleated RBC Nucleated RBC % (auto) PT INR APTT Sodium Potassium Chloride Carbon Dioxide Anion Gap BUN Creatinine Estim Creat Clear Calc Estimated GFR POC Glucose 84 85 Random Glucose Calcium Magnesium Total Bilirubin Direct Bilirubin AST ALT Alkaline Phosphatase B-Natriuretic Peptide Total Protein Albumin Urine Color Yellow Urine Appearance Clear Urine pH 5.5 Ur Specific [place] >= 1.030 H Urine Protein Negative Urine Glucose (UA) Negative Urine Ketones 15 Urine Blood Negative Urine Nitrite Negative Ur Leukocyte Esterase Negative Stool Occult Blood Blood Type Antibody Screen Crossmatch 0408/27/[id number] 08/27/24 06:36 07:50 11:55 WBC 8.8 RBC 2.66 L D Hgb 7.5 L D Hct 23.5 L D MCV 88.3 MCH 28.2 MCHC 31.9 RDW 15.6 Plt Count 196 MPV 10.1 Immature Gran % (Auto) Neut % (Auto) Lymph % (Auto) [place] % (Auto) Eos % (Auto) Baso % (Auto) Lymph # (Auto) [place] # (Auto) Eos # (Auto) Baso # (Auto) Abs Immat Gran (auto) Absolute Neuts (auto) Absolute Nucleated RBC 0.030 H Nucleated RBC % (auto) 0.3 H PT INR APTT Sodium 139 Potassium 4.4 Chloride 109 H Carbon Dioxide 19 L Anion Gap 15 BUN 23 H Creatinine 1.15 Estim Creat Clear Calc 59.5 Estimated GFR > 60 POC Glucose 77 77 Random Glucose 89 Calcium 8.4 Magnesium 1.9 Total Bilirubin 1.2 H Direct Bilirubin 0.6 H AST 565 H ALT 720 H Alkaline Phosphatase 148 H B-Natriuretic Peptide Total Protein 5.8 L Albumin 3.5 Urine Color Urine Appearance Urine pH Ur Specific [place] Urine Protein Urine Glucose (UA) Urine Ketones Urine Blood Urine Nitrite Ur Leukocyte Esterase Stool Occult Blood Blood Type Antibody Screen Crossmatch Airway Mallampati Class: II (small mouth opening poor dentition) TM Dist: >3cm Neck ROM: Full Heart: rrr Lungs: cta Assessment and Plan Assessment Anesthesia Assessment: Anesthesia Plan Discussed and Chart Reviewed Final Anesthetic Review Family History of Problems with Anesthesia: No History of Problems with Anesthesia: No NPO: Yes ASA Class: III and Emergency Final Preanesthetic Review: No Changes in Pt Med Stat, Meds/Allgs Chart Reviewed and Consent Obtained/Reviewed Patient Risk: Intermediate Procedure Risk: Intermediate Anesthetic Plan Anesthetic Plan: MAC: Disposition: Standard PACU
[2024-08-27] MEDS: Iron Sucrose Complex 200 MG in 0.9 % Sodium Chloride 100 ML 440 MG IV (18:40)
[2024-08-27 18:48] LABS: Glucose, Whole Blood 72 mg/dL (60-115)
[2024-08-27 20:20] LABS: Glucose, Whole Blood 83 mg/dL (60-115)
[2024-08-28 03:34] VITALS: BP 106/53; PULSE 71; RESP 16; TEMP 36.8; O2SAT 95
[2024-08-28 06:17] LABS: Hematocrit 23.7 % (42.0-52.0); Hemoglobin 7.7 g/dl (14.0-18.0); Mean Corpuscular HGB Conc 32.5 g/dl (31.0-36.0); Mean Corpuscular Hemoglobin 28.1 pg (27.0-33.0); Mean Corpuscular Volume 86.5 fL (80.0-98.0); Mean Platelet Volume 9.3 fL (9.4-12.4); NRBC Pct Auto 0.6 /100WBC (0.0-0.2); Platelet Count 165 X10*3/uL (160-400); Red Blood Count 2.74 X10*6/uL (4.60-5.80); Red Cell Distribution Width 16.1 % (11.0-16.0); White Blood Count 8.5 X10*3/uL (4.8-10.8)
[2024-08-28] MEDS: Omeprazole 20 MG CAPSULE.DR PO ×2 (06:29→16:19)
[2024-08-28 06:39] LABS: Alanine Aminotransferase 507 U/L (0-40); Albumin Level 3.3 g/dL (3.5-5.0); Alkaline Phosphatase 136 U/L (39-117); Anion Gap 13 (12-20); Aspartate Amino Transferase 247 U/L (5-37); Bilirubin Direct 0.4 mg/dL (0.0-0.5); Bilirubin Total 0.7 mg/dL (0.0-1.0); Blood Urea Nitrogen 21 mg/dL (9-16); Calcium 8.6 mg/dL (8.4-10.2); Carbon Dioxide 19 mmol/L (22-29); Chloride 109 mmol/L (96-108); Estimated Glomerular Filt Rate 60; Glucose Random 114 mg/dL (60-115); Potassium 4.2 mmol/L (3.3-5.1); Sodium 137 mmol/L (135-145); Total Protein 5.6 g/dL (6.5-8.0)
[2024-08-28 07:55] VITALS: BP 113/56; PULSE 70; RESP 18; TEMP 36.9; O2SAT 99
[2024-08-28 08:04] LABS: Glucose, Whole Blood 115 mg/dL (60-115)
--- NOTE | 2024-08-28 08:22 | HO.POSTANES ---
Post Anesthesia Evaluation Post Anesthesia Evaluation Date of Service: 08/28/24 Vital Signs: Vital Signs Temp Pulse Resp BP Pulse Ox O2 Del Method 08/28/24 07:55 98.4 F 70 18 113/56 L 99 Room Air 08/28/24 03:34 98.3 F 71 16 106/53 L 95 Room Air 08/27/24 23:41 98.3 F 71 16 111/55 L 95 Room Air Anesthesia: TIVA Mental Status: Awake Pain Control: Satisfactory Nausea/Vomiting: None Hydration: Adequate Anesthesia-Related Issues: No Anes. Related Issues
[2024-08-28] MEDS: Gabapentin 300 MG CAPSULE PO ×2 (08:26→23:01)
[2024-08-28] MEDS: Metoprolol Succinate ER 50 MG TAB.ER.24H PO (08:26)
[2024-08-28] MEDS: Cholecalciferol (Vitamin D3) 25 MCG TABLET PO (08:26)
[2024-08-28] MEDS: 0.9 % Sodium Chloride Flush 3 ML SYRINGE IVFLUSH ×3 (08:27→23:04)
--- NOTE | 2024-08-28 09:32 | HO.PM.IMPN ---
Subjective Subjective Date of Service: 08/28/24 Interval History: no further melena Physical Exam Vital Signs: Vital Signs: Last Vital Signs Temp 98.4 F 08/28/24 07:55 Pulse 70 08/28/24 07:55 Resp 18 08/28/24 07:55 BP 113/56 L 08/28/24 07:55 Pulse Ox 99 08/28/24 07:55 O2 Del Method Room Air 08/28/24 07:55 BMI result Body Mass Index 31.3 GENERAL APPEARANCE: in no acute distress, pleasant. NECK: no carotid bruit, no jugular venous distention. SKIN: no suspicious lesions, warm and dry. HEART: no murmurs, regular rate and rhythm. LUNGS: clear to auscultation bilaterally. ABDOMEN: soft, nontender. EXTREMITIES: no edema. PERIPHERAL PULSES: equal. NEUROLOGIC: No gross deficits, AAO X 3 Objective Data Active Medications Acetaminophen (Acetaminophen 325 Mg Tablet) 650 mg PO Q6H PRN PRN Reason: Pain, Mild 1-3,fever,headache Last Admin: 08/27/24 09:03 Dose: 650 mg Documented By: JOSEPH Albuterol Sulfate (Albuterol Sulfate 90 Mcg 8 Gm Inhaler) 1 puff INHALE QID PRN PRN Reason: shortness of breath or wheezing Calcium Carbonate (Calcium Carbonate 750 Mg Tab.Chew) 750 mg PO Q4H PRN PRN Reason: Heartburn Dextrose (Dextrose 50 % 25 Gm/50 Ml Syringe) 25 gm IVPUSH Q15M PRN; Protocol PRN Reason: per Hypoglycemia Standing Ord. Gabapentin (Gabapentin 300 Mg Capsule) 300 mg PO BID [facility] Last Admin: 08/28/24 08:26 Dose: 300 mg Documented By: JOSEPH Glucose (Glucose Gel 15 Gm Gel..Gram.) 15 gm PO Q15M PRN; Protocol PRN Reason: per Hypoglycemia Standing Ord. Insulin Human Lispro (Insulin Lispro 100 Unit/Ml 3 Ml Vial) 0 unit SUBCUT QIDACHS [facility]; Protocol Last Admin: 08/28/24 08:26 Dose: Not Given Documented By: JOSEPH Non-Admin Reason: No Insulin Coverage Magnesium Hydroxide (Milk Of Magnesia 30 Ml Oral.Susp) 30 ml PO DAILY PRN PRN Reason: Constipation Melatonin (Melatonin 3 Mg Tablet) 6 mg PO BEDTIME PRN PRN Reason: Insomnia Metoprolol Succinate (Metoprolol Succinate Er 50 Mg Tab.Er.24h) 50 mg PO DAILY [facility]; Protocol Last Admin: 08/28/24 08:26 Dose: 50 mg Documented By: JOSEPH Omeprazole (Omeprazole 20 Mg Capsule.Dr) 20 mg PO BID@0630,1630 [facility] Last Admin: 08/28/24 06:29 Dose: 20 mg Documented By: TYE Rivaroxaban (Rivaroxaban 20 Mg Tablet) 20 mg PO DAILY@1700 [facility] Sodium Chloride (0.9 % Sodium Chloride Flush 3 Ml Syringe) 3 ml IVFLUSH QSHIFT [facility] Last Admin: 08/28/24 08:27 Dose: 3 ml Documented By: JOSEPH Vitamin D (Cholecalciferol (Vitamin D3) 25 Mcg Tablet) 25 mcg PO DAILY [facility] Last Admin: 08/28/24 08:26 Dose: 25 mcg Documented By: JOSEPH Labs 08/28/24 06:03 08/28/24 06:03 Labs: Laboratory Results - last 24 hr 08/27/24 08/27/24 08/27/24 11:55 18:45 20:02 MCV MCH MCHC RDW Plt Count MPV Absolute Nucleated RBC Nucleated RBC % (auto) Anion Gap Estim Creat Clear Calc Estimated GFR POC Glucose 77 72 83 Random Glucose Calcium Total Bilirubin Direct Bilirubin AST ALT Alkaline Phosphatase Total Protein Albumin 08/28/24 08/28/24 06:03 07:59 MCV 86.5 MCH 28.1 MCHC 32.5 RDW 16.1 H Plt Count 165 MPV 9.3 L Absolute Nucleated RBC 0.050 H Nucleated RBC % (auto) 0.6 H Anion Gap 13 Estim Creat Clear Calc 58.0 Estimated GFR 60 POC Glucose 115 Random Glucose 114 Calcium 8.6 Total Bilirubin 0.7 Direct Bilirubin 0.4 AST 247 H ALT 507 H Alkaline Phosphatase 136 H Total Protein 5.6 L Albumin 3.3 L Assessment and Plan (1) PAF (paroxysmal atrial fibrillation): Status: Acute Plan 79M PMH TAVR and pacer in 06/2024, DM, htn, hld, pafib on xarelto, obesity, presented with melena Acute blood loss anemia due to duodenal ulcer in a patient on rivaroxaban s/p Kcentra, 2 units PRBC 4/27 hgb increased from 5.6 to 7.5 EGD 08/27/24 with non bleeding duodenal ulcer changed to po omeprazole 20mg bid, repeat egd in 8 weeks, given iv venofer, restarting xarelto Monitor hgb Transaminitis hold statin improving Diabetes Insulin sliding scale pafib xarelto toprol dvt prophylaxis - xarelto full code reason for continued hospitalization:monitor for tolerance of xarelto after bleed Quality Stroke Does the patient have a stroke diagnosis?: No VTE Prior VTE?: No VTE Risk Level:: Medical - moderate - high VTE Device Contraindication: N/A - Device Ordered VTE Drug Contraindication: Treatment Not Tolerated
[2024-08-28 11:21] VITALS: BP 107/51; PULSE 70; RESP 18; TEMP 36.9; O2SAT 97
[2024-08-28 12:25] LABS: Glucose, Whole Blood 139 mg/dL (60-115)
--- NOTE | 2024-08-28 12:44 | PM.PNCARD ---
Subjective Subjective Date of Service: 08/28/24 Interval history: Seen examined at bedside. Feeling better. Endoscopy has shown healing duodenal ulcer with no active bleeding. Physical Exam Vital Signs: Last Vital Signs Temp 98.4 F 08/28/24 11:21 Pulse 70 08/28/24 11:21 Resp 18 08/28/24 11:21 BP 107/51 L 08/28/24 11:21 Pulse Ox 97 08/28/24 11:21 O2 Del Method Room Air 08/28/24 11:21 BMI result Body Mass Index 31.3 GENERAL APPEARANCE: in no acute distress, pleasant. NECK: no carotid bruit, no jugular venous distention. SKIN: no suspicious lesions, warm and dry. HEART: no murmurs, regular rate and rhythm. LUNGS: clear to auscultation bilaterally. ABDOMEN: soft, nontender. EXTREMITIES: no edema. PERIPHERAL PULSES: equal. NEUROLOGIC: No gross deficits, AAO X 3 Objective Labs and Meds 08/28/24 06:03 08/28/24 06:03 Lab results: Laboratory Results - last 24 hr 08/27/24 08/27/24 08/28/24 18:45 20:02 06:03 WBC 8.5 RBC 2.74 L Hgb 7.7 L Hct 23.7 L MCV 86.5 MCH 28.1 MCHC 32.5 RDW 16.1 H Plt Count 165 MPV 9.3 L Absolute Nucleated RBC 0.050 H Nucleated RBC % (auto) 0.6 H Sodium 137 Potassium 4.2 Chloride 109 H Carbon Dioxide 19 L Anion Gap 13 BUN 21 H Creatinine 1.18 Estim Creat Clear Calc 58.0 Estimated GFR 60 POC Glucose 72 83 Random Glucose 114 Calcium 8.6 Total Bilirubin 0.7 Direct Bilirubin 0.4 AST 247 H ALT 507 H Alkaline Phosphatase 136 H Total Protein 5.6 L Albumin 3.3 L 08/28/24 08/28/24 07:59 11:30 WBC RBC Hgb Hct MCV MCH MCHC RDW Plt Count MPV Absolute Nucleated RBC Nucleated RBC % (auto) Sodium Potassium Chloride Carbon Dioxide Anion Gap BUN Creatinine Estim Creat Clear Calc Estimated GFR POC Glucose 115 139 H Random Glucose Calcium Total Bilirubin Direct Bilirubin AST ALT Alkaline Phosphatase Total Protein Albumin Progress Note: A&P Assessment and plan (1) PAF (paroxysmal atrial fibrillation): Status: Acute (2) HTN (hypertension): Status: Acute Plan Pleasant 79 year gentleman with severe aortic valve stenosis status post transcatheter aortic valve replacement and paroxysmal atrial fibrillation. He is on rivaroxaban and presented with GI bleed. He was using aspirin off and on along with Naprosyn. He has a duodenal ulcer found on endoscopy which appears to be healed and does not have any signs of active bleeding. Xarelto has been resumed. The patient was advised not to use any aspirin or Naprosyn. Blood pressure is well controlled. Overall clinically stable. We are signing off. Thank you for allowing me to participate in the care of your patient. Please feel free to contact me if you have any questions. Time Spent With Patient Time: Total time managing care of this patient today ____ minutes. Progress Note: Quality Stroke Does the patient have a stroke diagnosis?: No Procedures Date of Service Date of Service: 08/28/24
[2024-08-28 15:57] VITALS: BP 116/57; PULSE 64; RESP 18; TEMP 36.8; O2SAT 98
[2024-08-28] MEDS: Rivaroxaban 20 MG TABLET PO ×2 (16:19→23:01)
[2024-08-28 16:46] LABS: Glucose, Whole Blood 142 mg/dL (60-115)
[2024-08-28 20:00] VITALS: BP 111/56; PULSE 66; RESP 15; TEMP 36.4; O2SAT 98
[2024-08-28 21:11] LABS: Glucose, Whole Blood 125 mg/dL (60-115)
[2024-08-28 22:15] VITALS: BP 133/62; PULSE 70; RESP 20; TEMP 36.6; O2SAT 97
[2024-08-28 22:35] LABS: Glucose, Whole Blood 126 mg/dL (60-115)
[2024-08-29] VITALS (11 sets, daily range): BP systolic 104–134; BP diastolic 52–81; PULSE 63–97; RESP 16–18; TEMP 36.1–37; O2SAT 94–99
[2024-08-29] MEDS: Omeprazole 20 MG CAPSULE.DR PO ×2 (06:04→16:46)
[2024-08-29 07:44] LABS: Glucose, Whole Blood 109 mg/dL (60-115)
[2024-08-29 07:49] LABS: Hematocrit 23.9 % (42.0-52.0); Hemoglobin 7.5 g/dl (14.0-18.0); Mean Corpuscular HGB Conc 31.4 g/dl (31.0-36.0); Mean Corpuscular Hemoglobin 27.3 pg (27.0-33.0); Mean Corpuscular Volume 86.9 fL (80.0-98.0); Mean Platelet Volume 10.2 fL (9.4-12.4); NRBC Pct Auto 0.3 /100WBC (0.0-0.2); Platelet Count 157 X10*3/uL (160-400); Red Blood Count 2.75 X10*6/uL (4.60-5.80); Red Cell Distribution Width 16.5 % (11.0-16.0); White Blood Count 9.4 X10*3/uL (4.8-10.8)
[2024-08-29] MEDS: Cholecalciferol (Vitamin D3) 25 MCG TABLET PO (08:04)
[2024-08-29] MEDS: Gabapentin 300 MG CAPSULE PO (08:04)
[2024-08-29] MEDS: Metoprolol Succinate ER 50 MG TAB.ER.24H PO (08:04)
[2024-08-29] MEDS: 0.9 % Sodium Chloride Flush 3 ML SYRINGE IVFLUSH (08:06)
[2024-08-29 08:12] LABS: Anion Gap 12 (12-20); Blood Urea Nitrogen 16 mg/dL (9-16); Calcium 8.8 mg/dL (8.4-10.2); Carbon Dioxide 22 mmol/L (22-29); Chloride 108 mmol/L (96-108); Creatinine Clr Calc Pharmacy 61.6; Estimated Glomerular Filt Rate > 60; Glucose Random 122 mg/dL (60-115); Potassium 4.6 mmol/L (3.3-5.1); Sodium 137 mmol/L (135-145)
[2024-08-29 11:13] LABS: Glucose, Whole Blood 140 mg/dL (60-115)
--- NOTE | 2024-08-29 12:31 | P.PNIM_ITS ---
Subjective Subjective Date of Service: 08/29/24 Interval History: Seen and evaluated this morning no reported bleeding maintaning Hb around 7.5 more alert and interactive no other overnight events Review of Systems Review of Systems: Yes all other systems are reviewed and are negative Physical Exam 2 Vital Signs: Vital Signs: Last Vital Signs Temp 97.8 F 08/29/24 11:07 Pulse 69 08/29/24 11:21 Resp 18 08/29/24 11:07 BP 117/56 L 08/29/24 11:21 Pulse Ox 96 08/29/24 11:21 O2 Del Method Room Air 08/29/24 11:07 BMI result Body Mass Index 31.3 Const: Other: Constitutional : interactive, not in distress Cardiovascular : no JVP, no lower extremity edema Respiratory : bilateral chest movement, not in resp distress Gastrointestinal: soft, lax, Non tender Skin : Warm, Dry Neurological : Alert & oriented to self only , No focal deficit Objective Data Active Medications Acetaminophen (Acetaminophen 325 Mg Tablet) 650 mg PO Q6H PRN PRN Reason: Pain, Mild 1-3,fever,headache Last Admin: 08/27/24 09:03 Dose: 650 mg Documented By: JOSEPH Albuterol Sulfate (Albuterol Sulfate 90 Mcg 8 Gm Inhaler) 1 puff INHALE QID PRN PRN Reason: shortness of breath or wheezing Calcium Carbonate (Calcium Carbonate 750 Mg Tab.Chew) 750 mg PO Q4H PRN PRN Reason: Heartburn Dextrose (Dextrose 50 % 25 Gm/50 Ml Syringe) 25 gm IVPUSH Q15M PRN; Protocol PRN Reason: per Hypoglycemia Standing Ord. Gabapentin (Gabapentin 300 Mg Capsule) 300 mg PO BID [facility] Last Admin: 08/29/24 08:04 Dose: 300 mg Documented By: DIPIKA Glucose (Glucose Gel 15 Gm Gel..Gram.) 15 gm PO Q15M PRN; Protocol PRN Reason: per Hypoglycemia Standing Ord. Insulin Human Lispro (Insulin Lispro 100 Unit/Ml 3 Ml Vial) 0 unit SUBCUT QIDACHS [facility]; Protocol Last Admin: 08/29/24 11:16 Dose: Not Given Documented By: DIPIKA Non-Admin Reason: No Insulin Coverage Magnesium Hydroxide (Milk Of Magnesia 30 Ml Oral.Susp) 30 ml PO DAILY PRN PRN Reason: Constipation Melatonin (Melatonin 3 Mg Tablet) 6 mg PO BEDTIME PRN PRN Reason: Insomnia Metoprolol Succinate (Metoprolol Succinate Er 50 Mg Tab.Er.24h) 50 mg PO DAILY [facility]; Protocol Last Admin: 08/29/24 08:04 Dose: 50 mg Documented By: DIPIKA Omeprazole (Omeprazole 20 Mg Capsule.Dr) 20 mg PO BID@0630,1630 [facility] Last Admin: 08/29/24 06:04 Dose: 20 mg Documented By: LYRIC Rivaroxaban (Rivaroxaban 20 Mg Tablet) 20 mg PO DAILY@1700 [facility] Last Admin: 08/28/24 16:19 Dose: 20 mg Documented By: JOSEPH Sodium Chloride (0.9 % Sodium Chloride Flush 3 Ml Syringe) 3 ml IVFLUSH QSHIFT [facility] Last Admin: 08/29/24 08:06 Dose: 3 ml Documented By: DIPIKA Vitamin D (Cholecalciferol (Vitamin D3) 25 Mcg Tablet) 25 mcg PO DAILY [facility] Last Admin: 08/29/24 08:04 Dose: 25 mcg Documented By: DIPIKA Labs 08/29/24 06:56 08/29/24 06:56 Labs: Laboratory Results - last 24 hr 08/28/24 08/28/24 08/28/24 16:09 21:07 22:17 MCV MCH MCHC RDW Plt Count MPV Absolute Nucleated RBC Nucleated RBC % (auto) Anion Gap Estim Creat Clear Calc Estimated GFR POC Glucose 142 H 125 H 126 H Random Glucose Calcium 08/29/24 08/29/24 08/29/24 06:56 07:29 11:06 MCV 86.9 MCH 27.3 MCHC 31.4 RDW 16.5 H Plt Count 157 L MPV 10.2 Absolute Nucleated RBC 0.030 H Nucleated RBC % (auto) 0.3 H Anion Gap 12 Estim Creat Clear Calc 61.6 Estimated GFR > 60 POC Glucose 109 140 H Random Glucose 122 H Calcium 8.8 Assessment and Plan (1) Elevated LFTs: Status: Acute (2) Transaminitis: Status: Acute (3) Acute GI bleeding: Status: Acute (4) Duodenal ulcer: Status: Acute Plan 79M PMH TAVR and pacer in 06/2024, DM, htn, hld, pafib on xarelto, obesity, presented with melena Acute blood loss anemia due to duodenal ulcer in a patient on rivaroxaban s/p Kcentra, 2 units PRBC 08/26 hgb increased from 5.6 to 7.5 EGD 08/27/24 with non bleeding duodenal ulcer continue po omeprazole 20mg bid, repeat EGD in 8 weeks, given iv venofer, restarting xarelto to give 1 more unit of PRBCs to keep Hb > 8 Monitor hgb PT rec home [facility] Acute delerium 2/2 hospital stay recurrent redirection hold Gabapentin for now Transaminitis hold statin improving Diabetes Insulin sliding scale pafib xarelto toprol dvt prophylaxis - xarelto full code reason for continued hospitalization:monitor for tolerance of xarelto after bleed and follow H&H Quality Stroke Does the patient have a stroke diagnosis?: No VTE Prior VTE?: No VTE Risk Level:: Medical - moderate - high VTE Device Contraindication: N/A - Device Ordered VTE Drug Contraindication: Treatment Not Tolerated
--- NOTE | 2024-08-29 14:51 | MHC.CM.PN ---
EMR reviewed and per MD rounds, pt is not medically cleared for discharge today, anticipating pt will discharge tomorrow home with resumption of previous [facility] services.
[2024-08-29 15:58] LABS: Glucose, Whole Blood 135 mg/dL (60-115)
[2024-08-29] MEDS: Rivaroxaban 20 MG TABLET PO (16:46)
[2024-08-29 22:22] LABS: Glucose, Whole Blood 134 mg/dL (60-115)
[2024-08-30] MEDS: 0.9 % Sodium Chloride Flush 3 ML SYRINGE IVFLUSH (00:29)
[2024-08-30 03:01] VITALS: BP 107/53; PULSE 76; RESP 18; TEMP 36.7; O2SAT 97
[2024-08-30] MEDS: Omeprazole 20 MG CAPSULE.DR PO (04:28)
[2024-08-30 07:23] LABS: MANUAL DIFF FLAG NO
[2024-08-30 07:38] LABS: Basophils Absolute Auto 0.1 X10*3/uL (0.0-0.2); Basophils Percent Auto 0.6 % (0-2); Eosinophils Absolute Auto 0.4 X10*3/uL (0.0-0.4); Eosinophils Percent Auto 4.5 % (0-4); Hematocrit 26.9 % (42.0-52.0); Hemoglobin 8.5 g/dl (14.0-18.0); Imm Gran Abs Auto 0.05 X10*3/uL (0.00-0.03); Imm Gran Pct Auto 0.5 % (0.0-0.4); Lymphocytes Absolute Auto 1.9 X10*3/uL (1.2-4.9); Lymphocytes Percent Auto 20.7 % (20-40); Mean Corpuscular HGB Conc 31.6 g/dl (31.0-36.0); Mean Corpuscular Hemoglobin 27.8 pg (27.0-33.0); Mean Corpuscular Volume 87.9 fL (80.0-98.0); Mean Platelet Volume 10.2 fL (9.4-12.4); Monocytes Absolute Auto 1.2 X10*3/uL (0.1-1.2); Monocytes Percent Auto 13.1 % (2-11); Neutrophils Absolute Auto 5.7 x10*3/uL (2.0-8.3); Neutrophils Percent Auto 60.6 % (45-73); Platelet Count 135 X10*3/uL (160-400); Red Blood Count 3.06 X10*6/uL (4.60-5.80); Red Cell Distribution Width 16.4 % (11.0-16.0); White Blood Count 9.3 X10*3/uL (4.8-10.8)
[2024-08-30 07:40] LABS: Glucose, Whole Blood 105 mg/dL (60-115)
[2024-08-30 07:45] LABS: Anion Gap 11 (12-20); Blood Urea Nitrogen 14 mg/dL (9-16); Calcium 8.9 mg/dL (8.4-10.2); Carbon Dioxide 23 mmol/L (22-29); Chloride 106 mmol/L (96-108); Creatinine Clr Calc Pharmacy 69.8; Estimated Glomerular Filt Rate > 60; Glucose Random 107 mg/dL (60-115); Potassium 4.4 mmol/L (3.3-5.1); Sodium 136 mmol/L (135-145)
[2024-08-30 07:46] LABS: Alanine Aminotransferase 282 U/L (0-40); Albumin Level 3.5 g/dL (3.5-5.0); Alkaline Phosphatase 133 U/L (39-117); Aspartate Amino Transferase 72 U/L (5-37); Bilirubin Direct 0.4 mg/dL (0.0-0.5); Bilirubin Total 0.7 mg/dL (0.0-1.0); Total Protein 5.9 g/dL (6.5-8.0)
[2024-08-30 08:00] VITALS: BP 100/42; PULSE 60; RESP 18; TEMP 36.7; O2SAT 97
[2024-08-30 08:55] VITALS: BP 100/42; PULSE 60; O2SAT 97
[2024-08-30] MEDS: Cholecalciferol (Vitamin D3) 25 MCG TABLET PO (10:21)
--- NOTE | 2024-08-30 10:53 | MHC.CM.PN ---
Per ROUNDS discussion, Patient will be medically cleared for dc to home today, with services; Patient is active with [facility], who has been made aware of today's dc. CM met with Patient at bedside and addressed IMM with him; original was given to Patient and a copy has been placed on the chart. Patient has an appointment with [facility] on 09/04/2024 @ 12:30 PM to inquire about additional home services. Patient's Son will transport to home.
[2024-08-30 11:32] LABS: Glucose, Whole Blood 140 mg/dL (60-115)
[2024-08-30 12:00] VITALS: BP 105/44; PULSE 65; RESP 20; TEMP 36.2; O2SAT 100
--- NOTE | 2024-08-30 12:25 | P.DS_ITS ---
DS: Providers Provider Date of Service: 08/30/24 Date of admission: 08/26/24 13:42 Date of discharge: 08/30/24 Primary care physician: Emiliano Marie MD Consults: 08/26/24 13:48 Consult to Gastroenterology Routine Consulting Provider: Tahmina Brown Reason for consultation: gi bleed 08/27/24 10:08 Consult to Cardiology Routine Consulting Provider: [facility] [place] [facility] Reason for consultation: preop assessment DS: Diagnosis Discharge Diagnosis (1) Elevated LFTs: Status: Acute (2) Transaminitis: Status: Acute (3) Acute GI bleeding: Status: Acute (4) Duodenal ulcer: Status: Acute (5) Acute on chronic blood loss anemia: Status: Acute (6) Physical deconditioning: Status: Acute (7) Delirium, acute: Status: Acute DS: Summary Hospital Course Hospital Course: Admission note HPI 79M PMH TAVR and pacer in 06/2024, DM, htn, hld, pafib on xarelto, obesity, presented with melena. Patient states he has been noticing black stools for the past 2-3 days. Started to feel significant fatigue until day of presentation when he was so weak he decided to call ambulance. In ED noted to have a hemoglobin of 5.6 down from 11.2 from 1 month ago. Also noted to have elevated transaminases. CT abdomen without source of acute bleed. Patient denies chest pain, shortness of breath, nausea vomiting. Hospital course The patient was treated for Acute on chronic blood loss anemia due to duodenal ulcer in a patient on rivaroxaban as he received Kcentra, total 2 units PRBC 08/26 hgb and 1 more unit on 08/29/ increased from 5.6 to 8.5 as the goal was to keep his Hb>8. An EGD 08/27/24 with non bleeding duodenal ulcer. GI recommended po omeprazole 20mg bid, and to repeat EGD in 8 weeks as outpatient. He received IV venofer while inpatient and was restarted on xarelto with no further drop in H&H. To be discharged home on Iron supplement and Omeprazole 20 mg bid. He was seen by PT who recommended home physical therapy. He developed Acute delerium post EGD likely related to anesthesia and hospital stay. improved back to baseline with recurrent redirection and holding Gabapentin which will be restarted on discharge. Noted to have Transaminitis which were contributed to acute illness and Statin usage which was held during hospital stay with improvement in LFT. Images were negative for any liver problems. To restart Atorvastatin on discharge and repeat LFT next week to follow with PCP to decide if Atorvastatin needs to be changed. Discharge plan ADvance diet as tolerated Omeprazole two times a day Take IRon tab daily repeat blood work next week come back to emergency with increase shortness of breath, pallor or blood in stool Follow with GI as outpatient to arrange for repeat EGD study; Dr Brown Time Attestation Discharge Coordination Time (in mins): 42 Quality: Safe Use of Opioids Does Pt have an Active Cancer Diagnosis on the Problem List?: No Quality: Stroke Does the patient have a stroke diagnosis?: No Physical Exam Vital Signs: Vital Signs: Last Vital Signs Temp 97.1 F 08/30/24 12:00 Pulse 65 08/30/24 12:00 Resp 20 08/30/24 12:00 BP 105/44 L 08/30/24 12:00 Pulse Ox 100 08/30/24 12:00 O2 Del Method Room Air 08/30/24 12:00 BMI result Body Mass Index 31.3 Const: Other: Constitutional : interactive, not in distress Cardiovascular : no JVP, no lower extremity edema Respiratory : bilateral chest movement, not in resp distress Gastrointestinal: soft, lax, Non tender Skin : Warm, Dry Neurological : Alert & oriented to self only , No focal deficit DS: Data Data Completed and Pending Labs on day of discharge: Laboratory Results - last 24 hr 08/26/24 08/29/24 08/29/24 12:41 13:04 15:53 WBC RBC Hgb Hct MCV MCH MCHC RDW Plt Count MPV Immature Gran % (Auto) Neut % (Auto) Lymph % (Auto) [place] % (Auto) Eos % (Auto) Baso % (Auto) Lymph # (Auto) [place] # (Auto) Eos # (Auto) Baso # (Auto) Abs Immat Gran (auto) Absolute Neuts (auto) Absolute Nucleated RBC Nucleated RBC % (auto) Sodium Potassium Chloride Carbon Dioxide Anion Gap BUN Creatinine Estim Creat Clear Calc Estimated GFR POC Glucose 135 H Random Glucose Calcium Total Bilirubin Direct Bilirubin AST ALT Alkaline Phosphatase Total Protein Albumin Blood Type O Positive Antibody Screen NEGATIVE Crossmatch See Detail See Detail 08/29/24 08/30/24 08/30/24 22:12 06:44 06:45 WBC 9.3 RBC 3.06 L Hgb 8.5 L Hct 26.9 L MCV 87.9 MCH 27.8 MCHC 31.6 RDW 16.4 H Plt Count 135 L MPV 10.2 Immature Gran % (Auto) 0.5 H Neut % (Auto) 60.6 Lymph % (Auto) 20.7 [place] % (Auto) 13.1 H Eos % (Auto) 4.5 H Baso % (Auto) 0.6 Lymph # (Auto) 1.9 [place] # (Auto) 1.2 Eos # (Auto) 0.4 Baso # (Auto) 0.1 Abs Immat Gran (auto) 0.05 H Absolute Neuts (auto) 5.7 Absolute Nucleated RBC 0.000 Nucleated RBC % (auto) 0.0 Sodium 136 Potassium 4.4 Chloride 106 Carbon Dioxide 23 Anion Gap 11 L BUN 14 Creatinine 0.98 Estim Creat Clear Calc 69.8 Estimated GFR > 60 POC Glucose 134 H Random Glucose 107 Calcium 8.9 Total Bilirubin 0.7 Direct Bilirubin 0.4 AST 72 H ALT 282 H Alkaline Phosphatase 133 H Total Protein 5.9 L Albumin 3.5 Blood Type Antibody Screen Crossmatch 08/30/24 08/30/24 07:36 11:27 WBC RBC Hgb Hct MCV MCH MCHC RDW Plt Count MPV Immature Gran % (Auto) Neut % (Auto) Lymph % (Auto) [place] % (Auto) Eos % (Auto) Baso % (Auto) Lymph # (Auto) [place] # (Auto) Eos # (Auto) Baso # (Auto) Abs Immat Gran (auto) Absolute Neuts (auto) Absolute Nucleated RBC Nucleated RBC % (auto) Sodium Potassium Chloride Carbon Dioxide Anion Gap BUN Creatinine Estim Creat Clear Calc Estimated GFR POC Glucose 105 140 H Random Glucose Calcium Total Bilirubin Direct Bilirubin AST ALT Alkaline Phosphatase Total Protein Albumin Blood Type Antibody Screen Crossmatch Imaging CT scan - abdomen: My impression: IMPRESSION: 1. No active bleeding site identified. 2. Diverticulosis coli with no acute diverticulitis. Large colonic stool burden. 3. Minimal ascites in the left lower quadrant. No bowel obstruction or ileus. 4. No acute obstructive uropathy. 5. Small subpleural opacity in the right middle lobe may be inflammatory or infectious in etiology. 6. Prostatomegaly. This document has been electronically signed by: Elida Salguero DO on 08/26/2024 13:25:41 Discharge Plan Discharge Anticipated Discharge Date/Time: 08/30/24 12:20 Patient Disposition: Home Health Service Discharge Diagnosis: Duodenal ulcer Elevated liver enzymes Anemia Referrals: [facility] Appointment on 09/04/24 @ 12:30 PM [Other] - 1 Week [place] [facility] [Outside] - 1 Week Emiliano Marie MD [Primary Care Provider] - 1 Week Discharge Medications: New omeprazole 20 mg Capsule,Delayed Release(Dr/Ec) 20 mg PO BID@0630,1630 Qty: 180 0RF Continued Xarelto 20 mg tablet 20 mg PO DAILY Qty: 90 3RF cholecalciferol (vitamin D3) 25 mcg (1,000 unit) Tablet 25 mcg PO DAILY psyllium husk [Fiber (psyllium husk)] 0.4 gram Capsule 0.4 g PO DAILY carboxymethylcellulose sodium 1 % Drops, Liquid Gel 1 drp OPHTHALMIC (EYE) BID PRN (Reason: Dry Eyes) melatonin 10 mg Tablet 10 mg PO BEDTIME ferrous sulfate 325 mg (65 mg iron) Tablet 325 mg PO DAILY Qty: 90 0RF atorvastatin 40 mg tablet 40 mg PO BEDTIME sitagliptin phosphate 100 mg tablet 100 mg PO DAILY metoprolol succinate [Toprol XL] 50 mg tablet extended release 24 hr 50 mg PO DAILY Qty: 30 5RF gabapentin 300 mg capsule 300 mg PO BID Qty: 180 1RF acetaminophen 325 mg tablet 650 mg PO Q8H PRN (Reason: Pain) albuterol sulfate 90 mcg/actuation HFA aerosol inhaler 1 inh inhalation QID PRN (Reason: shortness of breath or wheezing) Qty: 8.5 3RF Discontinued omeprazole 20 mg Tablet,Delayed Release (Dr/Ec) 20 mg PO DAILY Discharge Orders: Discharge Order (Routine); Ordered 08/30/24 Ordered By: Samina Saenz Diet: Advance to usual diet Activity on Discharge: As tolerated Stand Alone Forms: Patient Portal Discharge page Print Language: Nicaraguan Other Ambulatory Orders: Complete Blood Count Auto Diff (Routine) Timeframe: 1 Week Facility: [facility] - Location: Laboratory Ordered By: Samina Saenz Liver Panel (Routine) Timeframe: 1 Week Facility: [facility] - Location: Laboratory Ordered By: Samina Saenz Care Plan Goals: ADvance diet as tolerated Omeprazole two times a day Take IRon tab daily repeat blood work next week come back to emergency with increase shortness of breath, pallor or blood in stool Follow with GI as outpatient to arrange for repeat EGD study; Dr Brown Health Concerns: Duodenal ulcer Plan of Treatment: Omeprazole BID repeat EGD as outpatient Assessment: as above
--- NOTE | 2024-08-30 12:35 | P.F2F_ITS ---
Service Date Service Date: 08/30/24 Encounter Date of encounter: 08/30/24 Reasons for Services Signs and symptoms assessed: physical deconditioning Reason for correction: medication management and teach disease management Reason for physical therapy: home safety and mobility and therapeutic exercises Homebound: Leaving the home is medically contraindicated at this time without the asist of a device and/or another person due th the listed conditions above and below. Reason homebound: unable to drive Certification: Based on the above findings, I certify that this patient is confined to the home and needs intermittent correction care, physical therapy and/or speech therapy, or continues to need occupational therapy. The patient is under my care, and I have initiated the establishment of the plan of care. The patient will be followed by a physician who will periodically review the plan of care. Time Spent With Patient Time: Total time managing care of this patient today ____ minutes.
--- NOTE | 2024-08-31 15:00 | P.CDIM_ITS ---
PROVIDER RESPONSE TEXT: To clarify, the appropriate diagnosis supported by the clinical indicators: Acute QUERY TEXT: PHYSICIAN'S DOCUMENTATION REQUEST Date of Query: 08/30/2024 08:22 AM EDT Patient Name: Thaddeus Velásquez Admit Date: 08/26/2024 Dear Samina Saenz MD, A review of the medical record indicates additional documentation may be needed. Please review below and update the documentation accordingly. Clinical Indicators: GI EGD dated 08/27/24 - Findings: Duodenum: Erythema and edema noted in the duodenal bulb. There was a 15 mm clean based ulcer. Recommendations: bleeding likely 2/2 duodenal ulcer. Avoid NSAIDS. Progress note 08/29/24 - Acute blood loss anemia due to duodenal ulcer in a patient on rivaroxaban. Clarify which of the following accurately represents the acuity of the Duodenal ulcer noted within th e medical record: Possible options might include: Acute Chronic Other specified Other (explain) Clinically unable to determine (explain) Thank you, Marisol Baron, CCS, CDIS Use of terms such as suspected, likely, concern for, or probable (associated with a specific diagnosi s that is being evaluated, monitored, or treated as if it exists) are acceptable and can be coded in the inpatient se tting, when documented at the time of discharge. Please use your independent medical judgment in providing your response. THIS QUERY IS PART OF THE PERMANENT MEDICAL RECORD
--- NOTE | 2024-08-31 18:21 | P.CDIM_ITS ---
PROVIDER RESPONSE TEXT: To clarify, the appropriate diagnosis supported by the clinical indicators: DALE has been ruled out after study QUERY TEXT: PHYSICIAN'S DOCUMENTATION REQUEST Date of Query: 08/30/2024 08:28 AM EDT Patient Name: Thaddeus Velásquez Admit Date: 08/26/2024 Dear Samina Saenz MD, A review of the medical record indicates additional documentation may be needed. Please review below and update the documentation accordingly. Consistency and clarity of a noted diagnosis within the medical record, if agree: Clinical indicators: GI consultation note 08/27/24 - In the emergency room he was noted to be hemodynamically stable. Labs with hemoglobin of 5.6 down from 11.2 last month. He was also note to have mild DALE and elevated LFT's. Bun 29 Cr 1.36 Gfr 51 Please clarify the documentation of DALE: DALE remains a known or suspected condition possible, resolved, probable, cannot rule out etc. DALE has been ruled out after study Other (explain) Clinically unable to determine (explain) Thank you, Marisol Baron, CCS, CDIS Use of terms such as suspected, likely, concern for, or probable (associated with a specific diagnosi s that is being evaluated, monitored, or treated as if it exists) are acceptable and can be coded in the inpatient se tting, when documented at the time of discharge. Please use your independent medical judgment in providing your response. THIS QUERY IS PART OF THE PERMANENT MEDICAL RECORD
== END 2024-08-30 15:09 | disposition home health service (06) | DRG 378 ==
LOC: HO.ED 11:22 → HO.EDOVER 14:03 → HO.IMC 14:43
PROVIDERS: Internal Medicine; Physician Assistant Medical; Admitting Provider Internal Medicine; Emergency Provider Emergency Medicine; PCP Internal Medicine; Visit Provider Student in an Organized Health Care Education/Training Program
PROC: 0DJ08ZZ Inspection of Upper Intestinal Tract, Via Natural or Artificial Opening Endoscopic (ICD-10-PCS; CPT 43235; principal; 2024-08-27 16:00)
DX: K26.0 Acute duodenal ulcer with hemorrhage (principal); D62 Acute posthemorrhagic anemia; F05 Delirium due to known physiological condition; I48.0 Paroxysmal atrial fibrillation; E11.9 Type 2 diabetes mellitus without complications; Z87.891 Personal history of nicotine dependence; Z95.0 Presence of cardiac pacemaker; Z95.2 Presence of prosthetic heart valve; Z79.02 Long term (current) use of antithrombotics/antiplatelets; Z79.899 Other long term (current) drug therapy
CPT/HCPCS: 36415; 74178; 80048; 80053; 80076; 81001; 81003; 82272; 82947; 83735; 83880; 85025; 85027; 85610; 85730; 86850; 86900; 86901; 86923; 93005; 97116; 97162; 99285; J1756; J2003; J2470; J2704; J7168; P9016; Q9967

== ENCOUNTER → 2024-08-26 11:41 | Outpatient (BNV) | payer MEDICARE, OTHER, SELFPAY | PROVIDERS: Emergency Provider Emergency Medicine; PCP Internal Medicine; Visit Provider Radiology Diagnostic Radiology | DX: K57.30 Diverticulosis of large intestine without perforation or abscess without bleeding (principal); R19.5 Other fecal abnormalities; N40.0 Benign prostatic hyperplasia without lower urinary tract symptoms | CPT/HCPCS: 74178 ==

== ENCOUNTER → 2024-08-26 13:42 | Outpatient (BNV) | payer MEDICARE, OTHER, SELFPAY | PROVIDERS: Admitting Provider Internal Medicine; Emergency Provider Emergency Medicine; PCP Internal Medicine; Visit Provider Internal Medicine | DX: D64.9 Anemia, unspecified (principal); K92.2 Gastrointestinal hemorrhage, unspecified; Z95.0 Presence of cardiac pacemaker; Z95.2 Presence of prosthetic heart valve; R79.89 Other specified abnormal findings of blood chemistry; K29.80 Duodenitis without bleeding; K26.9 Duodenal ulcer, unspecified as acute or chronic, without hemorrhage or perforation | CPT/HCPCS: 43235; 99222 ==

== ENCOUNTER → 2024-08-26 13:42 | Outpatient (BNV) | payer MEDICARE, OTHER, SELFPAY | PROVIDERS: Admitting Provider Internal Medicine; Emergency Provider Emergency Medicine; PCP Internal Medicine; Visit Provider Internal Medicine | DX: I48.0 Paroxysmal atrial fibrillation (principal); D50.0 Iron deficiency anemia secondary to blood loss (chronic) | CPT/HCPCS: 99232 ==

== ENCOUNTER → 2024-08-26 13:42 | Outpatient (BNV) | payer MEDICARE, OTHER, SELFPAY | PROVIDERS: Admitting Provider Internal Medicine; Emergency Provider Emergency Medicine; PCP Internal Medicine; Visit Provider Internal Medicine Cardiovascular Disease | DX: I48.0 Paroxysmal atrial fibrillation (principal); I10 Essential (primary) hypertension | CPT/HCPCS: 93010; 99222; 99232 ==

== ENCOUNTER 2024-09-04 17:39 | Outpatient (REF) | payer MEDICARE, OTHER, SELFPAY ==
[2024-09-04 17:42] LABS: MANUAL DIFF FLAG NO
[2024-09-04 17:44] LABS: Hematocrit 29.2 % (42.0-52.0); Monocytes Absolute Auto 1.2 X10*3/uL (0.1-1.2); PLT CLUMP 1; SCAN SMEAR FLAG 1
[2024-09-04 17:46] LABS: Basophils Absolute Auto 0.1 X10*3/uL (0.0-0.2); Eosinophils Absolute Auto 0.3 X10*3/uL (0.0-0.4); Eosinophils Percent Auto 3.9 % (0-4); Hemoglobin 9.1 g/dl (14.0-18.0); Imm Gran Abs Auto 0.03 X10*3/uL (0.00-0.03); Imm Gran Pct Auto 0.4 % (0.0-0.4); Lymphocytes Absolute Auto 1.9 X10*3/uL (1.2-4.9); Lymphocytes Percent Auto 24.2 % (20-40); Mean Corpuscular HGB Conc 31.2 g/dl (31.0-36.0); Mean Corpuscular Hemoglobin 27.7 pg (27.0-33.0); Mean Corpuscular Volume 88.8 fL (80.0-98.0); Mean Platelet Volume 10.5 fL (9.4-12.4); Monocytes Percent Auto 15.1 % (2-11); Neutrophils Absolute Auto 4.2 x10*3/uL (2.0-8.3); Neutrophils Percent Auto 55.4 % (45-73); Red Blood Count 3.29 X10*6/uL (4.60-5.80); Red Cell Distribution Width 16.8 % (11.0-16.0)
[2024-09-04 17:56] LABS: Platelet Count 118 X10*3/uL (160-400); White Blood Count 7.6 X10*3/uL (4.8-10.8)
[2024-09-04 18:57] LABS: Alanine Aminotransferase 91 U/L (0-40); Albumin Level 3.9 g/dL (3.5-5.0); Alkaline Phosphatase 137 U/L (39-117); Aspartate Amino Transferase 27 U/L (5-37); Bilirubin Direct 0.2 mg/dL (0.0-0.5); Bilirubin Total 0.4 mg/dL (0.0-1.0); Total Protein 6.7 g/dL (6.5-8.0)
== END 2024-09-04 17:40 | disposition home or self-care (01) ==
LOC: HO.HVNA 17:39
PROVIDERS: Visit Provider Physician Assistant Medical
DX: Z48.812 Encounter for surgical aftercare following surgery on the circulatory system (principal)
CPT/HCPCS: 36415; 80076; 85025

== ENCOUNTER 2024-09-11 13:34 | Outpatient (AMB) | payer MEDICARE, OTHER, SELFPAY ==
[2024-09-11 13:36] VITALS: BP 108/52; PULSE 72; RESP 16; TEMP 36.6; O2SAT 96; BMI 33.5
--- NOTE | 2024-09-11 13:36 | MHC.PC.OV ---
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 Accompanied by: Self / Same As Patient Allergies prednisone Allergy (Unknown, Verified 09/11/24 14:01) GI Medication List - Last Reconciled 09/11/24 by Emiliano Marie MD acetaminophen 650 mg PO Q8H PRN albuterol sulfate 90 mcg/actuation 1 inh inhalation QID PRN atorvastatin 40 mg PO BEDTIME carboxymethylcellulose sodium 1% 1 drp ophthalmic (eye) BID PRN cefpodoxime 100 mg PO BID 10 days cholecalciferol (vitamin D3) 25 mcg PO DAILY ferrous sulfate 325 mg PO DAILY gabapentin 300 mg PO BID melatonin 10 mg PO BEDTIME metoprolol succinate ER (Toprol XL) 50 mg PO DAILY omeprazole 20 mg PO BID@0630,1630 psyllium husk (Fiber (psyllium husk)) 0.4 grams PO DAILY rivaroxaban (Xarelto) 20 mg PO DAILY sitagliptin phosphate 100 mg PO DAILY Tobacco use date assessed: 09/11/24 Dental Screening Dental Screen Date: 08/06/24 HPI [facility] [place] HPI Details 79-year-old male presents to the office for a post hospital discharge follow-up. Patient was admitted to the hospital with melena and low hemoglobin. Patient is on Xarelto after a TAVR. He was given 3 units of blood and stabilized. He had a surgical procedure and subsequently had delirium. An EEG has been scheduled on the outpatient. [facility] Medical History Dysuria Duodenal ulcer Aortic stenosis Cardiac pacemaker in situ Speaking difficulty TIA (transient ischemic attack) Insomnia Hospital discharge follow-up History of echocardiogram Hypertriglyceridemia Tubular adenoma Dyspnea on exertion Obesity (BMI 30-39.9) Right shoulder injury Right shoulder pain Cough Raynaud disease Edema Hyperlipemia HTN (hypertension) Type 2 diabetes mellitus PAF (paroxysmal atrial fibrillation) Surgical History S/P TAVR (transcatheter aortic valve replacement) History of colonoscopy (~01/04/20) History of cardiac cath History of cataract surgery Family History Father No problems noted. Mother No problems noted. Paternal Grandfather CVD (cardiovascular disease) Paternal Grandmother No problems noted. Maternal Grandfather CVD (cardiovascular disease) Maternal Grandmother No problems noted. 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 1. Little interest or pleasure in doing things: not at all 2. Feeling down, depressed, or hopeless: not at all 3. Trouble falling or staying asleep, or sleeping too much: not at all 4. Feeling tired or having little energy: not at all 5. Poor appetite or overeating: not at all 6. Feeling bad about yourself - or that you are a failure or have let yourself or your family down: not at all 7. Trouble concentrating on things, such as reading the newspaper or watching television: not at all 8. Moving or speaking so slowly that other people could have noticed. Or the opposite - being so fidgety or restless that you have been moving around a lot more than usual: not at all 9. Thoughts that you would be better off or of hurting yourself in some way: not at all Total score: 0 Depression Screening Interpretation: Negative Depression Screening Done: Yes 85256 - PHQ-9 Billing: Yes Source: Developed by Drs. Anselmo Gill, Kimberly Salazar, Will Kasper and colleagues, with an educational archana from [employer]. Thrive Questionnaire Date Thrive assessed: 08/27/24 Currently or been in a relationship where the following occur: No concerns reported THRIVE Score: 0 AUDIT C Alcohol Use Questionnaire (AUDIT-C) 1. How often do you have a drink containing alcohol?: Monthly or less 2. How many drinks containing alcohol do you have on a typical day when you are drinking?: 1 or 2 3. How often do you have six or more drinks on one occasion?: Never Total Score: 1 Score Reviewed/Action Taken: No JEANA-7 AMB Questionnaire JEANA-7 Date JEANA - 7 assessed: 07/10/24 Feeling nervous, anxious, or on edge: 0 = Not at all Not being able to stop or control worryin = Not at all Worrying too much about different things: 0 = Not at all Trouble relaxin = Not at all Being so restless that it is hard to sit still: 0 = Not at all Becoming easily annoyed or irritable: 0 = Not at all Feeling afraid as if something awful might happen: 0 = Not at all Total JEANA-7 score (0-4 normal; 5-9 mild; 10-14 moderate; 15-21 severe): 0 Source: Developed by Drs. Anselmo Gill, Kimberly Salazar, Will Kasper and colleagues, with an educational archana from [employer]. JEANA-7 Assessment Billing JEANA-7 Assessment Tool: JEANA-7 Assessment 59108 Physical exam (Primary Care) Vital Signs: Last Vital Signs Temp 97.9 F 09/11/24 13:36 Pulse 72 09/11/24 13:36 Resp 16 09/11/24 13:36 BP 108/52 L 09/11/24 13:36 Pulse Ox 96 09/11/24 13:36 Oxygen Delivery Method Room Air 09/11/24 13:36 Care Plan Goal for BP management: Blood pressure is in range. BMI result Body Mass Index 33.5 BMI Assessment/Plan discussion: High BMI High, discussed plan: lifestyle, weight reduction and dietary Tobacco/Smoking Status: Tobacco use Status Tobacco use date assessed 09/11/24 09/11/24 13:43 Patient Tobacco Use Status Former Tobacco user 09/11/24 13:43 Tobacco use type Cigarette 09/11/24 13:43 PHQ-9: PHQ-9 Score PHQ-9: Total score 0 09/11/24 13:43 Depression Screening Interpretation: Negative Thrive Assessment: Date of Thrive Assessment Date Thrive assessed 08/27/24 09/11/24 13:43 Currently or been in a relationship where the following occur: No concerns reported Advance Care Planning discussion: Exists, not on file Date of discussion: 09/11/24 Forms completed: Health Care Proxy Actual minutes spent: 5 Const General: cooperative and healthy appearing Nutritional Appearance: well nourished Orientation/consciousness: patient oriented x3 Limitations: no limitations HENMT Head: Yes normal to inspection Eyes General: appearance normal, both eyes and all related structures Neck Neck: Yes normal visual inspection Chest Chest palpation & inspection: normal palpation of entire chest wall Resp Effort & Inspection: normal respiratory effort Neuro General: patient oriented x3 Coding Level of Care Code Est Pt Level 4 (44840) Complex EM visit Add On G2211 Diagnoses Acute on chronic blood loss anemia D62 Additional Codes JEANA-7 Assessment Billing - JEANA-7 Assessment Tool: JEANA-7 Assessment 37186 ([id number]) PHQ-9 - 51841 - PHQ-9 Billing: Yes ([id number]) Vital Signs *Quality* - Advance Care Planning discussion: Exists, not on file ([id number]) Assessment & Plan Assessment & Plan (1) Acute on chronic blood loss anemia: Code(s): D62 - Acute posthemorrhagic anemia Category: Medical Plan: Hospital record reviewed. Patient was instructed to restart the Xarelto. Hold the statin due to transaminitis. Continue the omeprazole at twice a day started in the hospital. Continue the iron supplement. Abstain from alcohol use. Plan Patient was advised to keep the neurology appointment.
== END 2024-09-11 14:00 | disposition home or self-care (01) ==
LOC: HO.HMCSH 13:34
PROVIDERS: PCP Internal Medicine; Visit Provider Internal Medicine
DX: D62 Acute posthemorrhagic anemia (principal); Z00.00 Encounter for general adult medical examination without abnormal findings

== ENCOUNTER → 2024-09-11 13:34 | Outpatient (BNVA) | payer MEDICARE, OTHER, SELFPAY | PROVIDERS: PCP Internal Medicine; Visit Provider Internal Medicine | DX: D62 Acute posthemorrhagic anemia (principal) | CPT/HCPCS: 96127; 99212 ==

== ENCOUNTER 2024-09-14 13:53 | Outpatient (REF) | payer MEDICARE, OTHER, SELFPAY ==
--- NOTE | ~2024-09-14 | XR_ITS ---
EXAMINATION: XR CHEST CLINICAL INFORMATION: R41.0 - Disorientation, unspecified COMPARISON: 07/10/2024. TECHNIQUE: 2 views of the chest were obtained. FINDINGS: Left-sided dual-lead pacer device noted with leads in the right atrium and right ventricle. The cardiac, hilar, and mediastinal contours are normal. TAVR in place. Lungs once again demonstrate increased interstitial markings in the mid to lower lung zones bilaterally, in keeping with interstitial changes. No focal consolidation or pneumonia. There is no pneumothorax or pleural effusion. There is no focal osseous or soft tissue abnormality. There are spinal degenerative changes. XR/XR chest 2V IMPRESSION: 1. Left-sided dual-lead pacer device in place. 2. TAVR. 3. Stable interstitial changes of the lungs without definite acute disease. Electronically signed by: Delmer Gray MD 09/14/2024 02:25 PM EDT
[2024-09-14 16:01] LABS: MANUAL DIFF FLAG NO
[2024-09-14 16:11] LABS: Appearance Urine Clear; Color Urine Yellow; Glucose Urine UA Negative (Negative); Leukocyte Esterase Urine Negative (Negative); Nitrite Urine Negative (Negative); Urine Blood Negative (Negative); Urine Ketones Negative (Negative); Urine Protein Negative (Neg-Trace)
[2024-09-14 16:30] LABS: Basophils Absolute Auto 0.1 X10*3/uL (0.0-0.2); Basophils Percent Auto 1.1 % (0-2); Eosinophils Absolute Auto 0.2 X10*3/uL (0.0-0.4); Eosinophils Percent Auto 3.9 % (0-4); Hemoglobin 8.5 g/dl (14.0-18.0); Imm Gran Abs Auto 0.01 X10*3/uL (0.00-0.03); Imm Gran Pct Auto 0.2 % (0.0-0.4); Lymphocytes Absolute Auto 1.6 X10*3/uL (1.2-4.9); Lymphocytes Percent Auto 29.4 % (20-40); Mean Corpuscular HGB Conc 31.5 g/dl (31.0-36.0); Mean Corpuscular Hemoglobin 27.7 pg (27.0-33.0); Mean Corpuscular Volume 87.9 fL (80.0-98.0); Mean Platelet Volume 10.4 fL (9.4-12.4); Monocytes Absolute Auto 0.7 X10*3/uL (0.1-1.2); Monocytes Percent Auto 13.2 % (2-11); Neutrophils Absolute Auto 2.8 x10*3/uL (2.0-8.3); Neutrophils Percent Auto 52.2 % (45-73); Platelet Count 246 X10*3/uL (160-400); Red Blood Count 3.07 X10*6/uL (4.60-5.80); Red Cell Distribution Width 16.9 % (11.0-16.0); White Blood Count 5.4 X10*3/uL (4.8-10.8)
[2024-09-14 16:44] LABS: Alanine Aminotransferase 22 U/L (0-40); Albumin Level 3.7 g/dL (3.5-5.0); Alkaline Phosphatase 169 U/L (39-117); Anion Gap 13 (12-20); Aspartate Amino Transferase 29 U/L (5-37); Bilirubin Direct 0.2 mg/dL (0.0-0.5); Bilirubin Total 0.4 mg/dL (0.0-1.0); Blood Urea Nitrogen 15 mg/dL (9-16); Calcium 9.2 mg/dL (8.4-10.2); Carbon Dioxide 22 mmol/L (22-29); Chloride 105 mmol/L (96-108); Estimated Glomerular Filt Rate 57; Glucose Random 105 mg/dL (60-115); Potassium 4.4 mmol/L (3.3-5.1); Sodium 136 mmol/L (135-145); Total Protein 6.6 g/dL (6.5-8.0)
[2024-09-14 16:59] LABS: TSH reflex Free T4 2.88 uIU/mL (0.32-4.0)
== END 2024-09-14 13:54 | disposition home or self-care (01) ==
LOC: HO.HMGCX 13:53
PROVIDERS: PCP Internal Medicine; Visit Provider Physician Assistant Medical
DX: Z13.89 Encounter for screening for other disorder (principal)
CPT/HCPCS: 36415; 71046; 80053; 81003; 82248; 83735; 84443; 85025

== ENCOUNTER → 2024-09-14 14:08 | Outpatient (BNV) | payer MEDICARE, OTHER, SELFPAY | PROVIDERS: PCP Internal Medicine; Visit Provider Radiology Diagnostic Radiology | DX: R60.0 Localized edema (principal); R59.9 Enlarged lymph nodes, unspecified; J84.9 Interstitial pulmonary disease, unspecified | CPT/HCPCS: 71046 ==

== ENCOUNTER 2024-09-14 14:48 | Outpatient (AMB) | payer MEDICARE, OTHER, SELFPAY ==
[2024-09-14 14:39] VITALS: BP 125/59; PULSE 72; RESP 12; TEMP 36.7; O2SAT 95; BMI 33.5
--- NOTE | 2024-09-14 14:39 | A.OFFPC_ITS ---
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 Accompanied by: Self / Same As Patient Allergies prednisone Allergy (Unknown, Verified 09/14/24 15:18) GI Medication List - Last Reconciled 09/14/24 by Katherin Slade PA-C acetaminophen 650 mg PO Q8H PRN albuterol sulfate 90 mcg/actuation 1 inh inhalation QID PRN atorvastatin 40 mg PO BEDTIME carboxymethylcellulose sodium 1% 1 drp ophthalmic (eye) BID PRN cefpodoxime 100 mg PO BID 10 days cholecalciferol (vitamin D3) 25 mcg PO DAILY ferrous sulfate 325 mg PO DAILY gabapentin 300 mg PO BID melatonin 10 mg PO BEDTIME metoprolol succinate ER (Toprol XL) 50 mg PO DAILY omeprazole 20 mg PO BID@0630,1630 psyllium husk (Fiber (psyllium husk)) 0.4 grams PO DAILY rivaroxaban (Xarelto) 20 mg PO DAILY sitagliptin phosphate 100 mg PO DAILY Tobacco use date assessed: 09/11/24 Dental Screening Dental Screen Date: 08/06/24 HPI worsening swelling, left arm HPI Details The patient is a 79-year-old male presenting with swollen left arm and neuro leg swelling. He has an extensive medical history, including a recent duodenal bleed requiring a temporary cessation of his anticoagulation therapy with Xarelto. After being discharged, he was advised to resume Xarelto but is now experiencing marked swelling in the left arm, possibly related to a past shoulder trauma in June. He denies any recent trauma but describes the swelling as significant, with observed bruising in the area. Despite the resumption of Xarelto following hospitalization, the symptom persists. He also complains of generalized fatigue and noticeable bilateral leg edema, which may indicate possible congestive heart failure. The patient's history of injuries and swelling warranted a discussion for possible thrombotic causes, especially with the concurrent anticoagulant usage. 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 - Physical activity may be limited due t o caregiving responsibilities. [facility] Medical History (Updated 09/14/24 @ 15:22 by Katherin Slade PA-C) Left arm swelling Leg swelling Dysuria Duodenal ulcer Aortic stenosis Cardiac pacemaker in situ Speaking difficulty TIA (transient ischemic attack) Insomnia Hospital discharge follow-up History of echocardiogram Hypertriglyceridemia Tubular adenoma Dyspnea on exertion Obesity (BMI 30-39.9) Right shoulder injury Right shoulder pain Cough Raynaud disease Edema Hyperlipemia HTN (hypertension) Type 2 diabetes mellitus PAF (paroxysmal atrial fibrillation) Surgical History S/P TAVR (transcatheter aortic valve replacement) History of colonoscopy (~01/04/20) History of cardiac cath History of cataract surgery Family History Father No problems noted. Mother No problems noted. Paternal Grandfather CVD (cardiovascular disease) Paternal Grandmother No problems noted. Maternal Grandfather CVD (cardiovascular disease) Maternal Grandmother No problems noted. 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 Anselmo Gill, Kimberly Salazar, Will Kasper and colleagues, with an educational archana from [employer]. Review of Systems Const Details: - Constitutional: Reports fatigue. - Cardiovascular: Reports bilateral leg swelling. - Respiratory: Denies shortness of breath. - Gastrointestinal: Denies jaundice, denies gastrointestinal bleeding. - Musculoskeletal: Reports left arm swelling, limited range of motion in the left shoulder. - Neurological: Denies transient ischemic attack or stroke history. Physical exam (Primary Care) Vital Signs: Last Vital Signs Temp 98.1 F 09/14/24 14:39 Pulse 72 09/14/24 14:39 Resp 12 09/14/24 14:39 BP 125/59 L 09/14/24 14:39 Pulse Ox 95 09/14/24 14:39 Oxygen Delivery Method Room Air 09/14/24 14:39 BMI result Body Mass Index 33.5 Tobacco/Smoking Status: Tobacco use Status Tobacco use date assessed 09/11/24 09/14/24 14:41 Patient Tobacco Use Status Former Tobacco user 09/14/24 14:41 Tobacco use type Cigarette 09/14/24 14:41 Thrive Assessment: Date of Thrive Assessment Date Thrive assessed 08/27/24 09/14/24 14:41 Const Other: Appearance: Alert. Oriented X3. No acute distress. Head: Normal external exam. Normocephalic. Atraumatic. Eyes: Pupils are equal, round, and reactive to light. Extraocular movements intact. Conjunctiva and sclera normal. Eyelids normal. Throat: Pharynx normal. Uvula midline. Moist mucous membranes. Neck: Normal inspection. Neck supple. Full range of motion. Cardiovascular: Normal heart rate and rhythm. Heart sound normal. No murmurs noted. Pulses normal throughout. Respiratory: No respiratory distress. Painless inspiration. Breath sounds normal. No wheezes/rales/rhonchi noted. Chest nontender. No accessory muscle usage noted or decreased air movement noted. Abdomen: Soft and nontender. Bowel sounds normal in all 4 quadrants. No distention noted. No organomegaly noted. No visible injury noted. Back: Full range of motion noted. Skin: Skin warm and dry. Normal skin color. Normal skin turgor. Bruising noted on left shoulder and left arm. Extremities: Left arm swollen and edematous. There is a radial pulse noted. Bruising noted on left arm/shoulder joint. Limited range of motion in left shoulder. Bilateral leg swelling noted. Good pedal pulses noted. Neuro: Oriented X 3. No motor deficit. No sensory deficit. Results Reviewed Results Reviewed: - Imaging: Chest x-ray reported as normal. - Laboratory: Outpatient blood work pending at the time of visit. Coding Level of Care Code Est Pt Level 5 (20622) Complex EM visit Add On G2211 Diagnoses Leg swelling M79.89 Left arm swelling M79.89 Assessment & Plan Assessment & Plan (1) Leg swelling: Code(s): M79.89 - Other specified soft tissue disorders Category: Medical Plan: Patient bilateral leg swelling and left arm swelling concern for DVT versus CHF. Patient referred to the emergency department for further evaluation management. (2) Left arm swelling: Code(s): M79.89 - Other specified soft tissue disorders Category: Medical Plan: Patient with bilateral leg swelling left arm swelling concerned for DVT versus CHF. He is also noted to have some bruising to the left shoulder/left upper arm may be related to left rotator cuff injury as well. Patient has an outpatient MRI scheduled for this. Currently on Xarelto taking as prescribed. Denies chest pain or shortness of breath. Chest x-ray revealed chronic changes. Outpatient blood work still pending. Patient understands to go directly to the ER he would like to drive himself he understands and agrees with the plan. Plan Plan Patient was informed and verbally consented to the use of an ambient scribe for clinic note documentation during this visit. 1. Duodenal Bleed Resume Xarelto post-duodenal bleed per discharge plan; ER assessment may adjust anticoagulation based on arm swelling. 2. Possible Blood Clot In Left Arm Patient referred to ER for urgently ruling out thrombosis. Ultrasound of left upper extremity recommended. 3. Rotator Cuff Injury Left Shoulder MRI scheduled to assess injury; symptom management to continue until results are available. 4. Edema Bilateral leg swelling to be evaluated; underlying issues like CHF considered; follow up pending lab and imaging results. Ultrasound of bilateral lower extremities recommended. In our discussion, I emphasized to the patient the importance of an immediate ER visit to address the potential blood clot in his swollen left arm with an ultrasound being critical. We reviewed the management challenges posed by his history of duodenal bleed and the need for anticoagulation due to possible thrombosis. I outlined the possible implications of continuing Xarelto and what an alternative regimen might entail. The potential exacerbation of symptoms due to congestive heart failure was also discussed, along with pending diagnostic results. I assured the patient of the necessity of follow-up to carefully balance anticoagulation management against bleeding risks. I also assured him I would contact the ER to facilitate his transfer and care. Patient Instructions: - Go directly to the ER as discussed for ultrasound to check the left arm for a clot. - Continue taking prescribed medications unless instructed otherwise by the ER staff. - Monitor for worsening symptoms, such as increased swelling or new areas of pain, and report these immediately. - Avoid alcohol as it may affect medication and liver function. - Use caution with activities that stress the left shoulder until further imaging can be completed. - Follow up after ER visit for further management recommendations based on new findings.
== END 2024-09-14 15:16 | disposition home or self-care (01) ==
LOC: HO.HMCSH 14:48
PROVIDERS: PCP Internal Medicine; Visit Provider Physician Assistant Medical
DX: M79.89 Other specified soft tissue disorders (principal)

== ENCOUNTER 2024-09-14 15:44 | Emergency (ER) | payer MEDICARE, OTHER, SELFPAY ==
--- NOTE | ~2024-09-14 | US_ITS ---
CLINICAL HISTORY: Bilateral LE edema Venous duplex ultrasound bilateral lower extremity Comparison: None Findings: The visualized deep veins are fully compressible with normal Doppler color flow and spectral tracings. 3.9 cm x 1.2 cm x 2.2 cm right popliteal cyst. No left popliteal cyst. Bilateral inguinal nodes measuring 3.5 cm x 0.6 cm x 2.1 cm on the left in 4.4 cm x 0.8 cm x 2.4 cm on the right. IMPRESSION: 1. Negative for bilateral lower extremity deep vein thrombosis. 2. Right popliteal cyst. 3. Bilateral inguinal nodes nonspecific and could be reactive. This document has been electronically signed by: Cindy Enriquez MD on 09/14/2024 18:01:35
--- NOTE | ~2024-09-14 | US_ITS ---
CLINICAL HISTORY: LUE edema Venous duplex ultrasound left upper extremity Comparison: None Findings: Accessible deep venous segments are fully compressible with normal Doppler color flow and spectral tracings. IMPRESSION: 1. Negative for left upper extremity deep vein thrombosis. This document has been electronically signed by: Cindy Enriquez MD on 09/14/2024 17:52:37
[2024-09-14 15:46] VITALS: BP 121/56; PULSE 63; RESP 16; TEMP 37.2; O2SAT 97; BMI 33.4
--- NOTE | 2024-09-14 15:49 | ED_ITS ---
HPI - General Adult General Chief complaint: Extremity Problem Stated complaint: ? Blood clot sent by pcp Time Seen by Provider: 09/14/24 18:50 Source: patient, RN notes reviewed and old records reviewed Mode of arrival: ambulatory Limitations: no limitations History of Present Illness ED Provider: Mario HPI narrative: 79-year-old male with past medical history significant for recent duodenal ulcer, paroxysmal AFib on Xarelto, hypertension, diabetes, previous TIA, cardiac pacemaker in-situ, status post TAVR presenting for evaluation of swelling in his legs and left arm. The patient reports he has had swelling in his left arm for about a week and a half and swelling in both legs for a couple of weeks. He states that his Lasix was discontinued while ago and he is not quite sure why. The patient also has bruising to the left upper arm and he believes this is from an injury sustained in June. He reports lifting a heavy bag and felt a crack in his left shoulder while doing so The patient denies any shortness of breath. He reports being compliant with his Xarelto He denies any pain including to the left shoulder unless he lifts his arm above the shoulder Related Data Home Medications ?Medication ?Instructions ?Recorded ?Confirmed atorvastatin 40 mg tablet 40 mg PO BEDTIME 09/02/20 09/14/24 sitagliptin phosphate 100 mg tablet 100 mg PO DAILY 03/17/21 09/14/24 acetaminophen 325 mg tablet 650 mg PO Q8H PRN Pain 07/10/24 09/14/24 cholecalciferol (vitamin D3) 25 25 mcg PO DAILY 07/28/24 09/14/24 mcg (1,000 unit) tablet psyllium husk 0.4 gram capsule 0.4 g PO DAILY 07/28/24 09/14/24 (Fiber (psyllium husk)) carboxymethylcellulose sodium 1 % 1 drp ophthalmic (eye) BID PRN Dry 08/26/24 09/14/24 eye liquid gel drops Eyes melatonin 10 mg tablet 10 mg PO BEDTIME 08/26/24 09/14/24 Previous Rx's ?Medication ?Instructions ?Recorded rivaroxaban 20 mg tablet (Xarelto) 20 mg PO DAILY #90 tabs 03/23/24 gabapentin 300 mg capsule 300 mg PO BID #180 caps 06/06/24 albuterol sulfate 90 mcg/actuation 1 inh inhalation QID PRN shortness 07/10/24 aerosol inhaler of breath or wheezing #8.5 grams metoprolol succinate 50 mg 50 mg PO DAILY #30 tabs 08/16/24 tablet,extended release 24 hr (Toprol XL) ferrous sulfate 325 mg (65 mg 325 mg PO DAILY #90 tabs 08/30/24 iron) tablet omeprazole 20 mg capsule,delayed 20 mg PO BID@0630,1630 #180 caps 08/30/24 release cefpodoxime 100 mg tablet 100 mg PO BID uti 10 days #20 tabs 09/07/24 furosemide 40 mg tablet (Lasix) 40 mg PO DAILY #3 tabs 09/14/24 Allergies Allergy/AdvReac Type Severity Reaction Status Date / Time prednisone Allergy Unknown GI Verified 09/14/24 15:50 Review of Systems 2 Constitutional: Constitutional: Denies body ache(s), Denies chills, Denies fever(s) and Denies headache(s) Eyes: Eyes: Denies exophthalmos ENT: Denies dysphagia, Denies vertigo, Denies dizziness and Denies headache(s) Cardiovascular: Cardiovascular: Denies chest pain, Reports pedal edema, Denies claudication, Reports leg edema and Denies dyspnea Respiratory: Respiratory: Denies dyspnea Gastrointestinal: Gastrointestinal: Denies abdominal pain, Denies dysphagia, Denies nausea and Denies vomiting Musculoskeletal: Musculoskeletal: Denies back pain Integumentary/Breasts: Skin/Breast: Denies rash Neurologic: Denies vertigo, Denies dizziness and Denies headache(s) [facility] Past Medical History Medical History (Updated 09/14/24 @ 19:08 by Magdy Martin) Left arm swelling Leg swelling Dysuria Duodenal ulcer Aortic stenosis Cardiac pacemaker in situ Speaking difficulty TIA (transient ischemic attack) Insomnia Hospital discharge follow-up History of echocardiogram Hypertriglyceridemia Tubular adenoma Dyspnea on exertion Obesity (BMI 30-39.9) Right shoulder injury Right shoulder pain Cough Raynaud disease Edema Hyperlipemia HTN (hypertension) Type 2 diabetes mellitus PAF (paroxysmal atrial fibrillation) Surgical History S/P TAVR (transcatheter aortic valve replacement) History of colonoscopy (~01/04/20) History of cardiac cath History of cataract surgery Family History Family History Father No problems noted. Mother No problems noted. Paternal Grandfather CVD (cardiovascular disease) Paternal Grandmother No problems noted. Maternal Grandfather CVD (cardiovascular disease) Maternal Grandmother No problems noted. 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 Cognitive needs: Yes (cane) Hearing needs: Yes (b/l hearing aids) Vision needs: Yes (reading glasses) Physical Exam ED Vital Signs: Vital Signs - 24 hr 09/14/24 15:46 09/14/24 18:08 09/14/24 19:17 Temperature 98.9 F 97.4 F 97.6 F Pulse Rate 63 61 63 Respiratory Rate 16 16 20 Blood Pressure 121/56 L 131/51 L 130/55 L Pulse Oximetry 97 97 98 Oxygen Delivery Method Room Air Room Air Room Air 09/14/24 19:23 Temperature 97.6 F Pulse Rate 63 Respiratory Rate 20 Blood Pressure 130/55 L Pulse Oximetry 98 Oxygen Delivery Method Room Air BMI result Body Mass Index 33.4 Const General: healthy appearing, comfortable, no acute distress, alert and awake Nutritional Appearance: well nourished Orientation/consciousness: patient oriented x3 HENMT Head: Yes normocephalic and Yes atraumatic Eyes Eyelids: Yes eyelids normal Conjunctivae: conjunctivae normal Sclerae: sclerae normal Corneas: corneas normal Pupils: Equal, round and reactive pupils present EOM: EOMs intact bilaterally Neck Neck: Yes full ROM Resp Effort & Inspection: normal respiratory effort, able to speak in complete sentences, no audible wheezes and not labored Auscultation: clear to auscultation bilaterally Cardio Other: 2+ bilateral pitting edema to lower extremities. GI Inspection: No distended Palpation (GI): Soft to palpation, not firm, nontender, no guarding and not rigid Auscultation: normoactive bowel sounds Skin General skin exam: elasticity normal Neuro General: patient oriented x3 Cranial nerves: Yes Equal, round and reactive pupils present and Yes Bilaterally intact EOM present Cognition (Neuro): normal cognition Extrem Other: Patient has moderate left upper extremity edema extending from the shoulder down to the hand. There is ecchymosis in the left bicep region. There was no significant tenderness on exam to the entire left upper extremity. Somewhat reduced range of motion with ab duction of the left upper extremity when she attempts to go above the shoulder. Course Course Course Narrative: This is a Rapid Medical Exam performed in triage by Magdalena Guerin PA-C. Full HPI, ROS and PE to be performed by primary ED provider. 79-year-old male with a past medical history of TIA, HLD, HTN, diabetes, proximal AFib on Xarelto presenting to the ED sent in by PCP c/o MIGUEL & b/l LE swelling. Patient with recent duodenal bleeding ulcer was temporarily stopped on Xarelto however has been taking since hospital discharge. Patient had outpatient chest x-ray performed today which does not show evidence of CHF. Patient denies SOB/CP PE: + pitting edema appreciated to bilateral lower extremities and left upper extremity. Healing ecchymosis noted to left shoulder Plan: EKG, labs, US venous duplex Medical Decision Making Medical Decision Making MDM Narrative: 79-year-old male with past medical history as above presents for evaluation of swelling to his legs and left arm. He had an outpatient chest x-ray that shows chronic changes. His lungs are clear to auscultation, his BNP is elevated he has lower extremity edema bilaterally. He appears to be retaining fluid but no evidence of overt CHF exacerbation. The left upper extremity is edematous as well. Ultrasound negative for DVT. He does have a previous injury and ecchymosis. Due to the injury he may have some degree of lymphedema developing, there is no evidence of infectious process. No erythema, no leukocytosis, no fever. We will discharge the patient with a short course of Lasix for his fluid retention. He has not outpatient left shoulder MRI scheduled for next 09/20/2024. Differential Diagnosis Differential Diagnoses: The differential diagnosis associated with the presentation includes CHF Fluid retention DVT Cellulitis Lymphedema Shoulder injury Lab Data MDM Lab Attestation statement: I reviewed the patient's lab results. No leukocytosis. The patient has a chronic normocytic anemia that is stable for the last few weeks since he was admitted for a duodenal bleed. 09/14/24 16:14 09/14/24 16:14 Labs: Lab Results 09/14/24 Range/Units 16:14 WBC 5.6 (4.8-10.8) X10*3/uL RBC 3.05 L (4.60-5.80) X10*6/uL Hgb 8.4 L (14.0-18.0) g/dl Hct 26.4 L (42.0-52.0) % MCV 86.6 (80.0-98.0) fL MCH 27.5 (27.0-33.0) pg MCHC 31.8 (31.0-36.0) g/dl RDW 16.9 H (11.0-16.0) % Plt Count 214 (160-400) X10*3/uL MPV 9.5 (9.4-12.4) fL Immature Gran % (Auto) 0.4 (0.0-0.4) % Neut % (Auto) 51.2 (45-73) % Lymph % (Auto) 28.3 (20-40) % Sabine % (Auto) 14.4 H (2-11) % Eos % (Auto) 4.8 H (0-4) % Baso % (Auto) 0.9 (0-2) % Lymph # (Auto) 1.6 (1.2-4.9) X10*3/uL Sabine # (Auto) 0.8 (0.1-1.2) X10*3/uL Eos # (Auto) 0.3 (0.0-0.4) X10*3/uL Baso # (Auto) 0.1 (0.0-0.2) X10*3/uL Abs Immat Gran (auto) 0.02 (0.00-0.03) X10*3/uL Absolute Neuts (auto) 2.9 (2.0-8.3) x10*3/uL Absolute Nucleated RBC 0.000 (0.0-0.012) X10*3/uL Nucleated RBC % (auto) 0.0 (0.0-0.2) /100WBC PT 28.6 H D (10.9-12.4) SEC INR 2.5 H (0.9-1.1) Sodium 136 (135-145) mmol/L Potassium 4.2 (3.3-5.1) mmol/L Chloride 105 (96-108) mmol/L Carbon Dioxide 21 L (22-29) mmol/L Anion Gap 14 (12-20) BUN 15 (9-16) mg/dL Creatinine 1.17 (0.5-1.4) mg/dL Estim Creat Clear Calc 60.4 Estimated GFR > 60 Random Glucose 103 (60-115) mg/dL Calcium 9.1 (8.4-10.2) mg/dL Magnesium 1.9 (1.6-2.6) mg/dL Total Bilirubin 0.4 (0.0-1.0) mg/dL Direct Bilirubin 0.2 (0.0-0.5) mg/dL AST 30 (5-37) U/L ALT 18 (0-40) U/L Alkaline Phosphatase 167 H (39-117) U/L B-Natriuretic Peptide 420 H (<100) pg/mL Total Protein 6.4 L (6.5-8.0) g/dL Albumin 3.7 (3.5-5.0) g/dL Influenza Type A (PCR) NEGATIVE (Negative) Influenza Type B (PCR) NEGATIVE (Negative) RSV RNA Qual (PCR) NEGATIVE (Negative) SARS-CoV-2 RNA (RT-PCR) NEGATIVE (Negative) Discharge Plan Discharge Clinical Impression: Left arm swelling, Fluid retention Patient Disposition: Home, Self-Care Instructions: Edema (ED) Additional Instructions: Your workup in the ER today was reassuring. This includes your blood work, ultrasounds. There was no evidence of DVT, blood clot. I recommend taking Lasix 40 mg daily for the next 3 days to help with the fluid retention. Follow-up with your doctor. Return for new or worsening symptoms You may continue all other medications including the Xarelto unless you notice any black or bloody stool Prescriptions: New furosemide [Lasix] 40 mg tablet 40 mg PO DAILY Qty: 3 0RF No Action Xarelto 20 mg tablet 20 mg PO DAILY Qty: 90 3RF cefpodoxime 100 mg tablet 100 mg PO BID 10 Days Qty: 20 0RF Rx Instructions: must administer with a meal/food cholecalciferol (vitamin D3) 25 mcg (1,000 unit) Tablet 25 mcg PO DAILY psyllium husk [Fiber (psyllium husk)] 0.4 gram Capsule 0.4 g PO DAILY carboxymethylcellulose sodium 1 % Drops, Liquid Gel 1 drp OPHTHALMIC (EYE) BID PRN (Reason: Dry Eyes) melatonin 10 mg Tablet 10 mg PO BEDTIME omeprazole 20 mg Capsule,Delayed Release(Dr/Ec) 20 mg PO BID@0630,1630 Qty: 180 0RF ferrous sulfate 325 mg (65 mg iron) Tablet 325 mg PO DAILY Qty: 90 0RF atorvastatin 40 mg tablet 40 mg PO BEDTIME sitagliptin phosphate 100 mg tablet 100 mg PO DAILY metoprolol succinate [Toprol XL] 50 mg tablet extended release 24 hr 50 mg PO DAILY Qty: 30 5RF gabapentin 300 mg capsule 300 mg PO BID Qty: 180 1RF acetaminophen 325 mg tablet 650 mg PO Q8H PRN (Reason: Pain) albuterol sulfate 90 mcg/actuation HFA aerosol inhaler 1 inh inhalation QID PRN (Reason: shortness of breath or wheezing) Qty: 8.5 3RF Interventions: ED Discharge Assessment Last Done: 09/14/24 19:23 Discharge Date/Time: 09/14/24 19:24 Print Language: Cymro
--- NOTE | 2024-09-14 15:52 | ECG_ITS ---
Test Reason : edema Blood Pressure : */* mmHG Vent. Rate : 68 BPM Atrial Rate : 68 BPM P-R Int : 286 ms QRS Dur : 114 ms QT Int : 434 ms P-R-T Axes : 17 -7 -15 degrees QTcB Int : 461 ms Sinus rhythm with 1st degree A-V block Low voltage QRS Right bundle branch block Abnormal ECG When compared with ECG of 26-Aug-2024 12:11, No significant change was found Referred By: Magdalena Gueirn Electronically Signed By: ALEX ELIZABETH MD
[2024-09-14 16:15] LABS: MANUAL DIFF FLAG NO
[2024-09-14 16:17] LABS: Basophils Absolute Auto 0.1 X10*3/uL (0.0-0.2); Basophils Percent Auto 0.9 % (0-2); Eosinophils Absolute Auto 0.3 X10*3/uL (0.0-0.4); Eosinophils Percent Auto 4.8 % (0-4); Hematocrit 26.4 % (42.0-52.0); Hemoglobin 8.4 g/dl (14.0-18.0); Imm Gran Abs Auto 0.02 X10*3/uL (0.00-0.03); Imm Gran Pct Auto 0.4 % (0.0-0.4); Lymphocytes Absolute Auto 1.6 X10*3/uL (1.2-4.9); Lymphocytes Percent Auto 28.3 % (20-40); Mean Corpuscular HGB Conc 31.8 g/dl (31.0-36.0); Mean Corpuscular Hemoglobin 27.5 pg (27.0-33.0); Mean Corpuscular Volume 86.6 fL (80.0-98.0); Mean Platelet Volume 9.5 fL (9.4-12.4); Monocytes Absolute Auto 0.8 X10*3/uL (0.1-1.2); Monocytes Percent Auto 14.4 % (2-11); Neutrophils Absolute Auto 2.9 x10*3/uL (2.0-8.3); Neutrophils Percent Auto 51.2 % (45-73); Platelet Count 214 X10*3/uL (160-400); Red Blood Count 3.05 X10*6/uL (4.60-5.80); Red Cell Distribution Width 16.9 % (11.0-16.0); White Blood Count 5.6 X10*3/uL (4.8-10.8)
[2024-09-14 16:25] LABS: INTERNATIONAL NORM RATIO 2.5 (0.9-1.1); Prothrombin Time 28.6 SEC (10.9-12.4)
[2024-09-14 16:30] LABS: Alanine Aminotransferase 18 U/L (0-40); Albumin Level 3.7 g/dL (3.5-5.0); Alkaline Phosphatase 167 U/L (39-117); Anion Gap 14 (12-20); Aspartate Amino Transferase 30 U/L (5-37); Bilirubin Direct 0.2 mg/dL (0.0-0.5); Bilirubin Total 0.4 mg/dL (0.0-1.0); Blood Urea Nitrogen 15 mg/dL (9-16); Calcium 9.1 mg/dL (8.4-10.2); Carbon Dioxide 21 mmol/L (22-29); Chloride 105 mmol/L (96-108); Creatinine Clr Calc Pharmacy 60.4; Estimated Glomerular Filt Rate > 60; Glucose Random 103 mg/dL (60-115); Magnesium 1.9 mg/dL (1.6-2.6); Potassium 4.2 mmol/L (3.3-5.1); Sodium 136 mmol/L (135-145); Total Protein 6.4 g/dL (6.5-8.0)
[2024-09-14 16:36] LABS: B Type Natriuretic Peptide 420 pg/mL (<100)
[2024-09-14 16:56] LABS: Influenza A PCR NEGATIVE (Negative); Influenza B PCR NEGATIVE (Negative); Resp Syncy Virus RNA Qual PCR NEGATIVE (Negative); SARS COV2 PCR INHOUSE NEGATIVE (Negative)
[2024-09-14 18:08] VITALS: BP 131/51; PULSE 61; RESP 16; TEMP 36.3; O2SAT 97
[2024-09-14 19:17] VITALS: BP 130/55; PULSE 63; RESP 20; TEMP 36.4; O2SAT 98
[2024-09-14 19:23] VITALS: BP 130/55; PULSE 63; RESP 20; TEMP 36.4; O2SAT 98
== END 2024-09-14 19:24 | disposition home or self-care (01) ==
PROVIDERS: Physician Assistant; Emergency Provider Emergency Medicine; PCP Internal Medicine
DX: R60.0 Localized edema (principal); I48.0 Paroxysmal atrial fibrillation; R06.02 Shortness of breath; R94.31 Abnormal electrocardiogram [ECG] [EKG]; Z79.01 Long term (current) use of anticoagulants; Z86.73 Personal history of transient ischemic attack (TIA), and cerebral infarction without residual deficits; Z79.899 Other long term (current) drug therapy; Z03.818 Encounter for observation for suspected exposure to other biological agents ruled out
CPT/HCPCS: 0241U; 36415; 71046; 80048; 80053; 80076; 81003; 82248; 83735; 83880; 84443; 85025; 85610; 93005; 93970; 93971; 99212; 99284

== ENCOUNTER → 2024-09-14 15:52 | Outpatient (BNV) | payer MEDICARE, OTHER, SELFPAY | PROVIDERS: Emergency Provider Emergency Medicine; PCP Internal Medicine; Visit Provider Internal Medicine Cardiovascular Disease | DX: I44.0 Atrioventricular block, first degree (principal); I45.10 Unspecified right bundle-branch block | CPT/HCPCS: 93010 ==

== ENCOUNTER 2024-09-20 09:57 | Outpatient (REF) | payer MEDICARE, OTHER, SELFPAY ==
--- NOTE | ~2024-09-20 | MR_ITS ---
CLINICAL HISTORY: M25.312 - Other instability, left shoulder MR left shoulder Comparison: None Findings: No fracture or dislocation of the osseous structures. Trace amount of bone marrow edema and cystic change in the humeral head and at the inferior aspect of the glenoid, favored to be degenerative. The acromioclavicular joint is intact. There is trace fluid in the joint space with [id number] joint space narrowing and mild osteophytosis, favored to be degenerative. There is a moderate-sized joint effusion. Trace amount of fluid in the subcoracoid/subdeltoid bursa. There is a complete tear of the supraspinatus tendon with retraction moderate muscular atrophy. There is a complete tear of the infraspinatus tendon with retraction and severe muscular atrophy. There is increased signal in subscapularis tendon with partial tear. No complete tear, retraction or muscular atrophy. Teres minor is intact. There is increased signal and irregularity of the labrum seen of the superior and inferior aspects. There is full-thickness glenohumeral chondromalacia. There is mild osteophytosis. The long head of the biceps tendon is enlarged and increased in signal. There is proximal irregularity without complete tear or retraction. There is a prominent amount of fluid in the tendon sheath. The coracoacromial and coracohumeral ligaments are intact. There is edema within the subcutaneous fat. Edema is present within the deltoid muscle. There is increased signal seen within the deltoid tendon and muscle near its insertion upon the acromion, indicating myotendinous injury. There is no complete tear or retraction of the deltoid. The quadrilateral space is unremarkable. Impression: Complete tears of the supraspinatus and infraspinatus tendons with muscular atrophy. Moderate-sized joint effusion. Subscapularis tendinopathy. Labral tear. Biceps tendinopathy, partial tear and tenosynovitis. Deltoid myositis with myotendinous injury. Glenohumeral and acromioclavicular degenerative change. This document has been electronically signed by: Shantal Mayberry MD on 09/21/2024 23:22:59
== END 2024-09-20 09:58 | disposition home or self-care (01) ==
LOC: HO.MRI 09:57
PROVIDERS: PCP Internal Medicine; Visit Provider Orthopaedic Surgery
DX: M25.312 Other instability, left shoulder (principal)
CPT/HCPCS: 73221

== ENCOUNTER → 2024-09-20 10:00 | Outpatient (BNV) | payer MEDICARE, OTHER, SELFPAY | PROVIDERS: PCP Internal Medicine; Visit Provider Radiology Diagnostic Radiology | DX: M25.312 Other instability, left shoulder (principal) | CPT/HCPCS: 73221 ==

== ENCOUNTER 2024-10-02 13:59 | Outpatient (REF) | payer MEDICARE, OTHER, SELFPAY ==
--- NOTE | ~2024-10-02 | XR_ITS ---
EXAMINATION: XR CHEST CLINICAL INFORMATION: M79.89 - Other specified soft tissue disorders COMPARISON: September 14, 2024 TECHNIQUE: 2 views of the chest were obtained. FINDINGS: 2-lead pacemaker is present with generator in the left upper chest and leads terminating in the right atrium and right ventricle. There is a metallic mesh projecting over the central cardiac silhouette possibly related to TAVR. Again seen is linear density in the lateral right lung base, decreased in thickness since the prior examination, probably related to subsegmental atelectasis and/or scarring. Vague reticular and groundglass densities in the lung bases overall appear similar to the prior x-ray. No pleural effusions are evident. Thoracic spine demonstrates mild to moderate disc space narrowing with anterior osteophytes. XR/XR chest 2V IMPRESSION: Stable chest x-ray without acute worsening. 3 lead Pacemaker TAVR Electronically signed by: Zachariah Yusuf MD 10/02/2024 02:26 PM EDT
== END 2024-10-02 14:00 | disposition home or self-care (01) ==
LOC: HO.HMGCX 13:59
PROVIDERS: Visit Provider Physician Assistant Medical
DX: R60.0 Localized edema (principal)
CPT/HCPCS: 71046

== ENCOUNTER → 2024-10-02 14:04 | Outpatient (BNV) | payer MEDICARE, OTHER, SELFPAY | PROVIDERS: Visit Provider Radiology Diagnostic Radiology | DX: M79.89 Other specified soft tissue disorders (principal) | CPT/HCPCS: 71046 ==

== ENCOUNTER 2024-10-03 11:08 | Outpatient (REF) | payer MEDICARE, OTHER, SELFPAY ==
[2024-10-03 13:15] LABS: Appearance Urine Clear; Color Urine Yellow; Glucose Urine UA Negative (Negative); Leukocyte Esterase Urine Negative (Negative); Nitrite Urine Negative (Negative); PH 6.5 (5.0-9.0); Urine Blood Negative (Negative); Urine Ketones Negative (Negative); Urine Protein Negative (Neg-Trace)
[2024-10-03 13:27] LABS: Hematocrit 30.5 % (42.0-52.0); Hemoglobin 9.7 g/dl (14.0-18.0); Mean Corpuscular HGB Conc 31.8 g/dl (31.0-36.0); Mean Corpuscular Hemoglobin 28.8 pg (27.0-33.0); Mean Corpuscular Volume 90.5 fL (80.0-98.0); Mean Platelet Volume 10.4 fL (9.4-12.4); Platelet Count 154 X10*3/uL (160-400); Red Blood Count 3.37 X10*6/uL (4.60-5.80); Red Cell Distribution Width 18.6 % (11.0-16.0); White Blood Count 5.8 X10*3/uL (4.8-10.8)
[2024-10-03 13:52] LABS: B Type Natriuretic Peptide 389 pg/mL (<100)
[2024-10-03 14:51] LABS: Alanine Aminotransferase 11 U/L (0-40); Albumin Level 4.1 g/dL (3.5-5.0); Alkaline Phosphatase 161 U/L (39-117); Anion Gap 12 (12-20); Aspartate Amino Transferase 28 U/L (5-37); Bilirubin Direct 0.3 mg/dL (0.0-0.5); Bilirubin Total 0.7 mg/dL (0.0-1.0); Blood Urea Nitrogen 14 mg/dL (9-16); Calcium 9.5 mg/dL (8.4-10.2); Carbon Dioxide 23 mmol/L (22-29); Chloride 106 mmol/L (96-108); Cholesterol 97 mg/dL (<200); Estimated Glomerular Filt Rate 56; Glucose Fasting 104 mg/dL (60-99); HDL Cholesterol 28 mg/dL (>40); LDL Cholesterol Calculated 54 mg/dL (<100); Potassium 4.1 mmol/L (3.3-5.1); Sodium 137 mmol/L (135-145); Thyroid Stimulating Hormone 1.92 uIU/mL (0.32-4.0); Total Protein 6.9 g/dL (6.5-8.0); Triglycerides 78 mg/dL (<150)
== END 2024-10-03 11:09 | disposition home or self-care (01) ==
LOC: HO.HMGCLDS 11:08
PROVIDERS: PCP Internal Medicine; Visit Provider Physician Assistant Medical
DX: Z00.00 Encounter for general adult medical examination without abnormal findings (principal); M25.312 Other instability, left shoulder; M79.89 Other specified soft tissue disorders; D62 Acute posthemorrhagic anemia; R60.0 Localized edema; Z13.6 Encounter for screening for cardiovascular disorders
CPT/HCPCS: 36415; 80053; 80061; 80076; 81003; 82248; 83880; 84443; 85027; 99212

== ENCOUNTER 2024-10-03 14:30 | Outpatient (AMB) | payer MEDICARE, OTHER, SELFPAY ==
--- NOTE | 2024-10-03 14:34 | A.OFFVIS_ITS ---
Vital Signs 10/03/24 14:35 Height 5 ft 9 in Weight 225 lb BMI 33.2 Intake Visit Reasons: OV-Left shoulder MRI review Intake Note: Thaddeus is a 79 year old right hand dominant male who presents with complaints of progressively worsening left shoulder pain and weakness. The patient describes his pain as sharp in nature. The patient did injure his left shoulder several m onths ago while lifting a heavy bag of groceries. He felt a ?pop? in his left shoulder when he lifted the groceries. Since that time he has had difficulty lifting his left hand above shoulder height. He has failed the last 6 weeks of conservative treatment which has included a home exercise program, physical therapy exercises, Tylenol and anti-inflammatory medicines. Allergies prednisone Allergy (Unknown, Verified 10/03/24 14:35) GI Medication List - Last Reconciled 10/04/24 by Diaz Cid MD acetaminophen 650 mg PO Q8H PRN albuterol sulfate 90 mcg/actuation 1 inh inhalation QID PRN atorvastatin 40 mg PO BEDTIME carboxymethylcellulose sodium 1% 1 drp ophthalmic (eye) BID PRN cefpodoxime 100 mg PO BID 10 days cholecalciferol (vitamin D3) 25 mcg PO DAILY ferrous sulfate 325 mg PO DAILY furosemide (Lasix) 40 mg PO DAILY gabapentin 300 mg PO BID melatonin 10 mg PO BEDTIME metoprolol succinate ER (Toprol XL) 50 mg PO DAILY omeprazole 20 mg PO BID@0630,1630 psyllium husk (Fiber (psyllium husk)) 0.4 grams PO DAILY rivaroxaban (Xarelto) 20 mg PO DAILY sitagliptin phosphate 100 mg PO DAILY [facility] Medical History (Updated 09/15/24 @ 00:01 by Renzo Hu) Left arm swelling Leg swelling Dysuria Duodenal ulcer Aortic stenosis Cardiac pacemaker in situ Speaking difficulty TIA (transient ischemic attack) Insomnia Hospital discharge follow-up History of echocardiogram Hypertriglyceridemia Tubular adenoma Dyspnea on exertion Obesity (BMI 30-39.9) Right shoulder injury Right shoulder pain Cough Raynaud disease Edema Hyperlipemia HTN (hypertension) Type 2 diabetes mellitus PAF (paroxysmal atrial fibrillation) Surgical History S/P TAVR (transcatheter aortic valve replacement) History of colonoscopy (~01/04/20) History of cardiac cath History of cataract surgery Family History Father No problems noted. Mother No problems noted. Paternal Grandfather CVD (cardiovascular disease) Paternal Grandmother No problems noted. Maternal Grandfather CVD (cardiovascular disease) Maternal Grandmother No problems noted. 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 Cognitive needs: Yes (cane) Hearing needs: Yes (b/l hearing aids) Vision needs: Yes (reading glasses) Physical Exam Vital Signs: BMI result Body Mass Index 33.2 Const Other: Well-nourished well-developed very friendly male awake alert and oriented x3 in no acute distress Extrem Other: Bilateral upper extremity examination shows good capillary refill, no skin lesions noted, normal sensation light touch Left shoulder examination shows decreased range of motion when compared to his right shoulder, 3/5 strength with supraspinatus testing, positive impingement signs, no instability Results Reviewed Results Reviewed: MRI of the patient's left shoulder shows a chronic rotator cuff tear with retraction almost to the lip of the glenoid Assessment & Plan Assessment & Plan (1) Rotator cuff insufficiency of left shoulder: Code(s): M25.312 - Other instability, left shoulder Category: Medical Plan Mr. Velásquez presents with left shoulder pain and weakness due to a large chronic rotator cuff tear. Based on the size of the tear I do not believe that the tear is reparable at this point. The patient may be a candidate for reverse total shoulder replacement surgery. Thus, I did recommend that the patient be evaluated by my partner, Dr. Mohr, who can give him more information regarding total shoulder replacement surgery. The patient wishes to think things over. He will follow up on an as-needed basis. He will continue with his range of motion exercises in the meantime. Feel free to call me at any time should questions regarding his orthopedic management arise. I spent 21 minutes in reviewing the patient's records and imaging studies, seeing the patient and documenting in the medical record. Coding Level of Care Code Est Pt Level 3 (22262) Complex EM visit Add On G2211 Diagnoses Rotator cuff insufficiency of left shoulder M25.312
[2024-10-03 14:35] VITALS: BMI 33.2
== END 2024-10-03 14:56 | disposition home or self-care (01) ==
LOC: HO.HOS 14:30
PROVIDERS: PCP Internal Medicine; Visit Provider Orthopaedic Surgery
DX: M25.312 Other instability, left shoulder (principal)
CPT/HCPCS: 99213; G2211

== ENCOUNTER 2024-10-10 13:32 | Outpatient (AMB) | payer MEDICARE, OTHER, SELFPAY ==
[2024-10-10 13:43] VITALS: BP 117/56; PULSE 64; RESP 16; TEMP 36.6; O2SAT 97; BMI 31.6
--- NOTE | 2024-10-10 13:43 | A.OFFPC_ITS ---
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 Accompanied by: Self / Same As Patient Allergies prednisone Allergy (Unknown, Verified 10/10/24 17:49) GI Medication List - Last Reconciled 10/10/24 by Katherin Slade PA-C acetaminophen 650 mg PO Q8H PRN albuterol sulfate 90 mcg/actuation 1 inh inhalation QID PRN atorvastatin 40 mg PO BEDTIME carboxymethylcellulose sodium 1% 1 drp ophthalmic (eye) BID PRN cefpodoxime 100 mg PO BID 10 days cholecalciferol (vitamin D3) 25 mcg PO DAILY ferrous sulfate 325 mg PO DAILY furosemide (Lasix) 40 mg PO DAILY 5 days gabapentin 300 mg PO BID melatonin 10 mg PO BEDTIME metoprolol succinate ER (Toprol XL) 50 mg PO DAILY omeprazole 20 mg PO BID@0630,1630 psyllium husk (Fiber (psyllium husk)) 0.4 grams PO DAILY rivaroxaban (Xarelto) 20 mg PO DAILY sitagliptin phosphate 100 mg PO DAILY Tobacco use date assessed: 09/11/24 Dental Screening Dental Screen Date: 08/06/24 HPI follow up HPI Details The patient is a 79-year-old male presenting with follow-up for upper extremity swelling and pain. He reports swelling and discoloration in his arm that has been present for over a month without any evident injuries. His range of motion is limited, with discomfort past a certain point. Imaging reveals a complete tear of the supraspinatus and infraspinatus tendons, as well as other shoulder joint issues. The chest x-ray was normal, and no blood clots were found in previous ultrasounds of the lower extremities and arms. He manages Type 2 Diabetes Mellitus and Chronic Kidney Disease, with furosemide alleviating previous symptoms of breathlessness. In a review of his medications, he has Januvia for diabetes control. The patient denies recent injuries and neurological symptoms, and reports taking furosemide for previous shortness of breath. The suspected diagnosis is that of upper extremity lymphedema possibly due to a chronic shoulder injury, though infection has yet to be ruled out. Social History - Lives with who is currently able to manage being alone for short periods. - No recent information about his alcoho l, tobacco, or other substance use. - Details about diet, exercise, or occup ation were not discussed. [facility] Medical History (Updated 10/10/24 @ 17:59 by Katherin Slade PA-C) Class 1 obesity with body mass index (BMI) of 31.0 to 31.9 in adult Rotator cuff tear, left Swelling of left elbow Localized swelling of left forearm Left arm swelling Leg swelling Dysuria Duodenal ulcer Aortic stenosis Cardiac pacemaker in situ Speaking difficulty TIA (transient ischemic attack) Insomnia Hospital discharge follow-up History of echocardiogram Hypertriglyceridemia Tubular adenoma Dyspnea on exertion Obesity (BMI 30-39.9) Right shoulder injury Right shoulder pain Cough Raynaud disease Edema Hyperlipemia HTN (hypertension) Type 2 diabetes mellitus PAF (paroxysmal atrial fibrillation) Surgical History S/P TAVR (transcatheter aortic valve replacement) History of colonoscopy (~01/04/20) History of cardiac cath History of cataract surgery Family History Father No problems noted. Mother No problems noted. Paternal Grandfather CVD (cardiovascular disease) Paternal Grandmother No problems noted. Maternal Grandfather CVD (cardiovascular disease) Maternal Grandmother No problems noted. 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 1. Little interest or pleasure in doing things: not at all 2. Feeling down, depressed, or hopeless: not at all 3. Trouble falling or staying asleep, or sleeping too much: not at all 4. Feeling tired or having little energy: not at all 5. Poor appetite or overeating: not at all 6. Feeling bad about yourself - or that you are a failure or have let yourself or your family down: not at all 7. Trouble concentrating on things, such as reading the newspaper or watching television: not at all 8. Moving or speaking so slowly that other people could have noticed. Or the opposite - being so fidgety or restless that you have been moving around a lot more than usual: not at all 9. Thoughts that you would be better off or of hurting yourself in some way: not at all Total score: 0 Depression Screening Interpretation: Negative Depression Screening Done: Yes 71303 - PHQ-9 Billing: Yes Source: Developed by Drs. Anselmo Gill, Kimberly Salazar, Will Kasper and colleagues, with an educational archana from [employer]. Thrive Questionnaire Date Thrive assessed: 08/27/24 Currently or been in a relationship where the following occur: No concerns reported THRIVE Score: 0 AUDIT C Alcohol Use Questionnaire (AUDIT-C) 1. How often do you have a drink containing alcohol?: Monthly or less 2. How many drinks containing alcohol do you have on a typical day when you are drinking?: 1 or 2 3. How often do you have six or more drinks on one occasion?: Never Total Score: 1 Score Reviewed/Action Taken: No JEANA-7 AMB Questionnaire JEANA-7 Date JEANA - 7 assessed: 07/10/24 Feeling nervous, anxious, or on edge: 0 = Not at all Not being able to stop or control worryin = Not at all Worrying too much about different things: 0 = Not at all Trouble relaxin = Not at all Being so restless that it is hard to sit still: 0 = Not at all Becoming easily annoyed or irritable: 0 = Not at all Feeling afraid as if something awful might happen: 0 = Not at all Total JEANA-7 score (0-4 normal; 5-9 mild; 10-14 moderate; 15-21 severe): 0 Source: Developed by Drs. Anselmo Gill, Will Bryson and colleagues, with an educational archana from [employer]. JEANA-7 Assessment Billing JEANA-7 Assessment Tool: JEANA-7 Assessment 70933 Review of Systems Const Details: - Cardiovascular: Denies chest pain, reports previously controlled dyspnea with diuretic use. - Musculoskeletal: Reports arm swelling and limited range of motion. - Respiratory: Denies shortness of breath. - General: Denies recent injuries. Physical exam (Primary Care) Vital Signs: Last Vital Signs Temp 97.9 F 10/10/24 13:43 Pulse 64 10/10/24 13:43 Resp 16 10/10/24 13:43 BP 117/56 L 10/10/24 13:43 Pulse Ox 97 10/10/24 13:43 Oxygen Delivery Method Room Air 10/10/24 13:43 Care Plan Goal for BP management: <140/90 at Goal BMI result Body Mass Index 31.6 BMI Assessment/Plan discussion: High BMI High, discussed plan: lifestyle, weight reduction, dietary, physical activity and alcohol moderation Tobacco/Smoking Status: Tobacco use Status Tobacco use date assessed 09/11/24 10/10/24 13:56 Patient Tobacco Use Status Former Tobacco user 10/10/24 13:56 Tobacco use type Cigarette 10/10/24 13:56 PHQ-9: PHQ-9 Score PHQ-9: Total score 0 10/10/24 14:52 Depression Screening Interpretation: Negative Thrive Assessment: Date of Thrive Assessment Date Thrive assessed 08/27/24 10/10/24 13:56 Currently or been in a relationship where the following occur: No concerns reported Const Other: Appearance: Alert. Oriented X3. No acute distress. Head: Normal external exam. Normocephalic. Atraumatic. Eyes: Pupils are equal, round, and reactive to light. Extraocular movements intact. Conjunctiva and sclera normal. Eyelids normal. Ears: External auditory canal normal. Tympanic membranes normal. Throat: Pharynx normal. Uvula midline. Moist mucous membranes. Neck: Normal inspection. Neck supple. Full range of motion. No adenopathy. Thyroid Normal. No meningeal signs. No neck mass noted. Cardiovascular: Normal heart rate and rhythm. Heart sound normal. Pulses normal throughout. Respiratory: No respiratory distress. Painless inspiration. Breath sounds normal. No wheezes/rales/rhonchi noted. Chest nontender. No accessory muscle usage noted or decreased air movement noted. Abdomen: Soft and nontender. Bowel sounds normal in all 4 quadrants. No distention noted. No organomegaly noted. No visible injury noted. Back: No costovertebral angle tenderness. Full range of motion noted. Skin: Skin warm and dry. Normal skin color. Normal skin turgor. No rashes/lesions/lacerations noted. Extremities: Left arm is swollen and discolored. Limited range of motion in the left arm due to pain. Not consistent with septic joint, abscess, cellulitis at this time. Most likely related to lymphedema from left shoulder injury rotator cuff tears. No lower extremity edema. Otherwise all other extremities exhibit normal range of motion nontender. Neuro: Oriented X 3. No motor deficit. No sensory deficit. Reflexes normal. Normal steady gait. Results AMB Hemoglobin A1c AMB Hemoglobin A1c 5.7 % Last Edit by SUZETTE Carter on 10/10/24 14:34 Results Reviewed Results Reviewed: Laboratory Last Values Hgb A1c (Clinic) 5.7 % (4.0-6.0) 10/10/24 14:29 - Shoulder MRI: Complete tear of supraspinatus and infraspinatus tendons, muscular atrophy, joint effusion, subscapularis tendonitis, labral tear, biceps tendinopathy, deltoid myositis, mild tendinitis, and degenerative changes. - Ultrasounds: Negative for blood clots in lower extremities and arms. - Chest X-Ray: Normal. Coding Level of Care Code Est Pt Level 4 (04237) Complex EM visit Add On G2211 Diagnoses Left arm swelling M79.89 Type 2 diabetes mellitus E11.9 Rotator cuff tear, left M75.102 Class 1 obesity with body mass index (BMI) of 31.0 to 31.9 in adult E66.811; Z68.31 Additional Codes JEANA-7 Assessment Billing - JEANA-7 Assessment Tool: JEANA-7 Assessment 28472 ([id number]) PHQ-9 - 36922 - PHQ-9 Billing: Yes ([id number]) Time Spent (min) 50 Assessment & Plan Assessment & Plan (1) Left arm swelling: Code(s): M79.89 - Other specified soft tissue disorders Category: Medical Plan: Plan: Suspected infection or vascular issues will be evaluated with an outpatient CAT scan of the left arm. Condition has been stable for the past month and patient has normal pulses. Will continue to monitor. (2) Type 2 diabetes mellitus: Code(s): E11.9 - Type 2 diabetes mellitus without complications Category: Medical Plan: A1c level 5.7 at goal. Continue Januvia 100 mg daily. Condition is chronic and stable continue to monitor. (3) Rotator cuff tear, left: Code(s): M75.102 - Unspecified rotator cuff tear or rupture of left shoulder, not specified as traumatic Category: Medical Plan: Plan: Advise continuation of orthopedic care and consideration of physiotherapy referral. Condition is been stable for the past 1-2 months. Patient has follow-up with Orthopedics on 11/19/2024. Will continue to monitor. (4) Class 1 obesity with body mass index (BMI) of 31.0 to 31.9 in adult: Code(s): E66.811 - Obesity, class 1; Z68.31 - Body mass index [BMI] 31.0-31.9, adult Category: Medical Plan: Patient to continue improving diet and exercise regimen. Condition is chronic and stable continue to monitor. Plan Plan Patient was informed and verbally consented to the use of an ambient scribe for clinic note documentation during this visit. 1. Upper Extremity Lymphedema Plan: Suspected infection or vascular issues will be evaluated with an outpatient CAT scan of the left arm. 2. Type 2 Diabetes Mellitus Plan: Continue medication and monitor blood sugar levels with upcoming A1c testing. 3. Rotator Cuff Tear Plan: Advise continuation of orthopedic care and consideration of physiotherapy referral. During the visit, I addressed concerns regarding the patient's arm swelling and discoloration, suspecting possible lymphedema or infection. I advised an outpatient CAT scan to further investigate. The patient agreed to this plan as visit to the Emergency Room is not preferred. An A1c test was explained and planned to check diabetes control. Expectations for normal renal function monitoring were also outlined. Discussion included a possible referral to physiotherapy for his shoulder injury and reassurance to keep the orthopedic appointment. The patient and I discussed follow-up timelines to assess the condition and associated lab work. The patient indicated understanding and agreed with the management plan. Orders: Orders Complete Blood Count Auto Diff Today Z00.00 - Encounter for general adult medical examination without abnormal findings Comprehensive Met. Panel Today Z00.00 - Encounter for general adult medical examination without abnormal findings AMB Hemoglobin A1c Today E11.9 - Type [address] forearm LT w IV con Today M25.422 - Effusion, left elbow, M79.89 - Other specified soft tissue disorders, R22.32 - Localized swelling, mass and lump, left upper limb CT elbow LT w IV con Today M25.422 - Effusion, left elbow, R22.32 - Localized swelling, mass and lump, left upper limb CT hand LT w IV con Today M25.422 - Effusion, left elbow, M79.89 - Other specified soft tissue disorders, R22.32 - Localized swelling, mass and lump, left upper limb C Reactive Protein Today Z00.00 - Encounter for general adult medical examination without abnormal findings Erythrocyte Sedimentation Rate Today Z00.00 - Encounter for general adult medical examination without abnormal findings B Type Natriuretic Peptide Today R60.0 - Localized edema Hemoglobin A1c Today Z00.00 - Encounter for general adult medical examination without abnormal findings Medications: New sitagliptin phosphate 100 mg PO DAILY 90 tabs 1RF Patient Instructions: - Watch for increased swelling, redness, or pain in the arm and seek immediate care if these occur. - Keep the affected arm elevated above the level of the heart as much as possible. - Continue taking medications as prescribed, including furosemide and Januvia. - Attend scheduled CAT scan appointments and follow-up with specialists as advised. - Those managing diabetes should follow a balanced diet as discussed. - Continue to observe regularly scheduled exercise and treatment plans for diabetes management. - Report any significant changes in symptoms or general health condition.
== END 2024-10-10 14:38 | disposition home or self-care (01) ==
LOC: HO.HMCSH 13:32
PROVIDERS: PCP Internal Medicine; Visit Provider Physician Assistant Medical
DX: M79.89 Other specified soft tissue disorders (principal); E11.9 Type 2 diabetes mellitus without complications; M75.102 Unspecified rotator cuff tear or rupture of left shoulder, not specified as traumatic; E66.811 Obesity, class 1; Z68.31 Body mass index [BMI] 31.0-31.9, adult

== ENCOUNTER → 2024-10-10 13:32 | Outpatient (BNVA) | payer MEDICARE, OTHER, SELFPAY | PROVIDERS: PCP Internal Medicine; Visit Provider Physician Assistant Medical | DX: E11.9 Type 2 diabetes mellitus without complications (principal); M79.89 Other specified soft tissue disorders; M75.102 Unspecified rotator cuff tear or rupture of left shoulder, not specified as traumatic; E66.811 Obesity, class 1; Z68.31 Body mass index [BMI] 31.0-31.9, adult; Z71.3 Dietary counseling and surveillance | CPT/HCPCS: 83036; 96127; 99212 ==

== ENCOUNTER 2024-11-05 09:55 | Outpatient (REF) | payer MEDICARE, OTHER, SELFPAY ==
--- NOTE | ~2024-11-05 | CT_ITS ---
EXAMINATION: CT ELBOW, FOREARM, AND HAND WITH CONTRAST, LEFT CLINICAL INFORMATION: R22.32 - Localized swelling, mass and lump, left upper limb COMPARISON: None available. TECHNIQUE: Axial CT was performed from the mid to distal humerus through the hand without contrast. Coronal and sagittal reformatted images were generated from the original axial data set. ALARA: The examination used one or more of the following radiation dose reduction techniques: Automated exposure control, iterative reconstruction, and/or adjustment of mA and/or KV. DLP: 248 mGY*cm FINDINGS: Bones: There are degenerative changes with joint space narrowing and osteophytes involving the 1-3rd metacarpophalangeal joints. There is an erosion with corticated margins present along the radial side of the central capitate. Degenerative cystic changes present within the scaphoid tuberosity, trapezoid, lunate, triquetrum, and the distal ulnar side of the hamate. Scapholunate interval measured 5.8 mm which is wide and raises concern for scapholunate ligament tear. Soft tissues: Moderate vascular calcifications are present throughout the ulnar artery. Minimal calcification is present in the radial artery. Distal biceps tendon is not clearly seen extending to the radius and may be torn and retracted. Distal triceps tendon is intact. Common flexor and extensor tendons are grossly intact. There is no elbow joint effusion. No soft tissue mass was identified. CT/CT forearm LT w IV con IMPRESSION: Possible distal biceps tendon tear with retraction. The area was not optimally covered by CT. MRI of the elbow without contrast would provide better characterization of soft tissues. No soft tissue mass was identified. If there is concern for a soft tissue mass/neoplasm, standard of care is MRI localized to the area of the mass without and with IV contrast. Possible scapholunate ligament tear with dissociation. Moderate degenerative changes in the carpus with possible chronic erosion into capitate raising question of an inflammatory arthropathy. Moderate degenerative changes in the first-third metacarpophalangeal joints suggest CPPD arthropathy versus osteoarthritis. Electronically signed by: Zachariah Yusuf MD 11/05/2024 11:51 AM EDT
[2024-11-05] MEDS: iohexoL 350 MG/ML 100 ML INFUS..BTL IV (11:24)
[2024-11-05 16:27] LABS: B Type Natriuretic Peptide 295 pg/mL (<100)
[2024-11-05 16:51] LABS: MANUAL DIFF FLAG NO
[2024-11-05 17:04] LABS: Hemoglobin A1C 146.2618 umol/L; Total Hemoglobin (HGBA1C) 2968.7539 umol/L
[2024-11-05 17:05] LABS: Hematocrit 34.4 % (42.0-52.0); Hemoglobin 11.2 g/dl (14.0-18.0); Imm Gran Abs Auto 0.02 X10*3/uL (0.00-0.03); Imm Gran Pct Auto 0.3 % (0.0-0.4); Lymphocytes Absolute Auto 2.0 X10*3/uL (1.2-4.9); Mean Corpuscular HGB Conc 32.6 g/dl (31.0-36.0); Mean Corpuscular Hemoglobin 28.3 pg (27.0-33.0); Mean Corpuscular Volume 86.9 fL (80.0-98.0); NRBC Abs Auto 0.000 X10*3/uL (0.0-0.012); NRBC Pct Auto 0.0 /100WBC (0.0-0.2); Platelet Count 176 X10*3/uL (160-400); Red Blood Count 3.96 X10*6/uL (4.60-5.80); White Blood Count 6.8 X10*3/uL (4.8-10.8)
[2024-11-05 17:13] LABS: Alanine Aminotransferase 17 U/L (0-40); Albumin Level 4.3 g/dL (3.5-5.0); Alkaline Phosphatase 181 U/L (39-117); Anion Gap 15 (12-20); Aspartate Amino Transferase 33 U/L (5-37); Blood Urea Nitrogen 25 mg/dL (9-16); Calcium 9.4 mg/dL (8.4-10.2); Carbon Dioxide 24 mmol/L (22-29); Chloride 100 mmol/L (96-108); Estimated Glomerular Filt Rate 45; Potassium 4.1 mmol/L (3.3-5.1); Sodium 135 mmol/L (135-145); Total Protein 7.2 g/dL (6.5-8.0)
[2024-11-05 17:25] LABS: Prostate Specific Antigen 2.41 ng/mL (<0.05-4.0)
[2024-11-06 13:03] LABS: Creatinine POC 1.1 mg/dL (0.5-1.4); GFR POC > 60
== END 2024-11-05 09:56 | disposition home or self-care (01) ==
LOC: HO.CT 09:55
PROVIDERS: PCP Internal Medicine; Referring Provider Physician Assistant Surgical; Visit Provider Physician Assistant Medical
DX: R22.32 Localized swelling, mass and lump, left upper limb (principal); M79.89 Other specified soft tissue disorders; R97.20 Elevated prostate specific antigen [PSA]; Z12.5 Encounter for screening for malignant neoplasm of prostate; Z13.1 Encounter for screening for diabetes mellitus; Z00.00 Encounter for general adult medical examination without abnormal findings
CPT/HCPCS: 36415; 73201; 80053; 82565; 83036; 83880; 84153; 85025; 85652; 86140; Q9967

== ENCOUNTER → 2024-11-05 09:58 | Outpatient (BNV) | payer MEDICARE, OTHER, SELFPAY | PROVIDERS: PCP Internal Medicine; Visit Provider Radiology Diagnostic Radiology | DX: M19.022 Primary osteoarthritis, left elbow (principal); M19.042 Primary osteoarthritis, left hand | CPT/HCPCS: 73201 ==

== ENCOUNTER 2024-11-07 16:06 | Emergency (ER) | payer MEDICARE, OTHER, SELFPAY ==
--- NOTE | ~2024-11-07 | US_ITS ---
CLINICAL HISTORY: calf pain Venous duplex ultrasound right lower extremity Comparison: None provided Findings: The visualized deep veins are fully compressible with normal Doppler flow. Pulsatile venous waveforms are noted which suggest possible elevated right atrial pressure. 4.9 x 0.6 x 2.9 cm cyst within the popliteal fossa. There is an enlarged lymph node within the right groin measuring 4.3 x 0.9 x 3.8 cm in size. This has normal morphology and a large fatty hilum. An inflammatory lymph node is favored. IMPRESSION: 1. Negative for right lower extremity deep vein thrombosis. 2. Pulsatile venous waveforms suggesting possible elevation of right atrial pressure. 3. 4.9 cm Chandra's cyst. This document has been electronically signed by: Bess Mead MD on 11/07/2024 18:12:23
[2024-11-07 16:12] VITALS: BP 103/75; PULSE 65; RESP 18; O2SAT 98; BMI 30.8
--- NOTE | 2024-11-07 16:14 | ED.LOWEXIN ---
HPI - Extremity Injury (Lower) General Chief Complaint: Extremity Injury, Lower Stated Complaint: Pain in lower rt leg Time Seen by Provider: 11/07/24 19:36 Related Data Home Medications ?Medication ?Instructions ?Recorded ?Confirmed acetaminophen 325 mg tablet 650 mg PO Q8H PRN Pain 07/10/24 10/10/24 cholecalciferol (vitamin D3) 25 25 mcg PO DAILY 07/28/24 10/10/24 mcg (1,000 unit) tablet psyllium husk 0.4 gram capsule 0.4 g PO DAILY 07/28/24 10/10/24 (Fiber (psyllium husk)) carboxymethylcellulose sodium 1 % 1 drp ophthalmic (eye) BID PRN Dry 08/26/24 10/10/24 eye liquid gel drops Eyes melatonin 10 mg tablet 10 mg PO BEDTIME 08/26/24 10/10/24 Previous Rx's ?Medication ?Instructions ?Recorded rivaroxaban 20 mg tablet (Xarelto) 20 mg PO DAILY #90 tabs 03/23/24 gabapentin 300 mg capsule 300 mg PO BID #180 caps 06/06/24 albuterol sulfate 90 mcg/actuation 1 inh inhalation QID PRN shortness 07/10/24 aerosol inhaler of breath or wheezing #8.5 grams metoprolol succinate 50 mg 50 mg PO DAILY #30 tabs 08/16/24 tablet,extended release 24 hr (Toprol XL) ferrous sulfate 325 mg (65 mg 325 mg PO DAILY #90 tabs 08/30/24 iron) tablet omeprazole 20 mg capsule,delayed 20 mg PO BID@0630,1630 #180 caps 08/30/24 release cefpodoxime 100 mg tablet 100 mg PO BID uti 10 days #20 tabs 09/07/24 furosemide 40 mg tablet 40 mg PO DAILY #90 tabs 10/16/24 sitagliptin phosphate 100 mg tablet 100 mg PO DAILY #90 tabs 10/17/24 miscellaneous medical supply #1 ea 11/06/24 atorvastatin 40 mg tablet 40 mg PO BEDTIME #90 tabs 11/07/24 Allergies Allergy/AdvReac Type Severity Reaction Status Date / Time prednisone Allergy Unknown GI Verified 11/07/24 16:17 [facility] Past Medical History Medical History Left scapholunate ligament tear Rupture of distal biceps tendon Class 1 obesity with body mass index (BMI) of 31.0 to 31.9 in adult Rotator cuff tear, left Swelling of left elbow Localized swelling of left forearm Left arm swelling Leg swelling Dysuria Duodenal ulcer Aortic stenosis Cardiac pacemaker in situ Speaking difficulty TIA (transient ischemic attack) Insomnia Hospital discharge follow-up History of echocardiogram Hypertriglyceridemia Tubular adenoma Dyspnea on exertion Obesity (BMI 30-39.9) Right shoulder injury Right shoulder pain Cough Raynaud disease Edema Hyperlipemia HTN (hypertension) Type 2 diabetes mellitus PAF (paroxysmal atrial fibrillation) Surgical History S/P TAVR (transcatheter aortic valve replacement) History of colonoscopy (~01/04/20) History of cardiac cath History of cataract surgery Family History Family History Father No problems noted. Mother No problems noted. Paternal Grandfather CVD (cardiovascular disease) Paternal Grandmother No problems noted. Maternal Grandfather CVD (cardiovascular disease) Maternal Grandmother No problems noted. 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 RME assessment and note performed by: Wendy Vargas PA-C 79-year-old male with past medical history significant for recent duodenal ulcer, paroxysmal AFib on Xarelto, hypertension, diabetes, previous TIA, cardiac pacemaker in-situ, status post TAVR presenting for evaluation of right lower extremity pain and swelling. No injury or trauma. Pain in right calf. Plan: Labs, US, further ER eval needed Lab Data 11/07/24 16:48 11/07/24 16:48 Labs: Lab Results 11/07/24 Range/Units 16:48 WBC 8.1 (4.8-10.8) X10*3/uL RBC 3.79 L (4.60-5.80) X10*6/uL Hgb 10.8 L (14.0-18.0) g/dl Hct 32.6 L (42.0-52.0) % MCV 86.0 (80.0-98.0) fL MCH 28.5 (27.0-33.0) pg MCHC 33.1 (31.0-36.0) g/dl RDW 17.3 H (11.0-16.0) % Plt Count 150 L (160-400) X10*3/uL MPV 8.7 L (9.4-12.4) fL Immature Gran % (Auto) 0.4 (0.0-0.4) % Neut % (Auto) 55.2 (45-73) % Lymph % (Auto) 24.9 (20-40) % [place] % (Auto) 14.6 H (2-11) % Eos % (Auto) 4.2 H (0-4) % Baso % (Auto) 0.7 (0-2) % Lymph # (Auto) 2.0 (1.2-4.9) X10*3/uL [place] # (Auto) 1.2 (0.1-1.2) X10*3/uL Eos # (Auto) 0.3 (0.0-0.4) X10*3/uL Baso # (Auto) 0.1 (0.0-0.2) X10*3/uL Abs Immat Gran (auto) 0.03 (0.00-0.03) X10*3/uL Absolute Neuts (auto) 4.5 (2.0-8.3) x10*3/uL Absolute Nucleated RBC 0.000 (0.0-0.012) X10*3/uL Nucleated RBC % (auto) 0.0 (0.0-0.2) /100WBC Sodium 137 (135-145) mmol/L Potassium 4.8 (3.3-5.1) mmol/L Chloride 100 (96-108) mmol/L Carbon Dioxide 28 (22-29) mmol/L Anion Gap 14 (12-20) BUN 22 H (9-16) mg/dL Creatinine 1.59 H (0.5-1.4) mg/dL Estim Creat Clear Calc 42.7 Estimated GFR 42 Random Glucose 133 H (60-115) mg/dL Calcium 9.7 (8.4-10.2) mg/dL Magnesium 2.1 (1.6-2.6) mg/dL Total Bilirubin 0.5 (0.0-1.0) mg/dL Direct Bilirubin 0.2 (0.0-0.5) mg/dL AST 30 (5-37) U/L ALT 19 (0-40) U/L Alkaline Phosphatase 182 H (39-117) U/L Total Protein 7.4 (6.5-8.0) g/dL Albumin 4.4 (3.5-5.0) g/dL Discharge Plan Discharge Clinical Impression: Chandra cyst Patient Disposition: Home, Self-Care Instructions: Chandra Cyst (ED) Prescriptions: No Action Xarelto 20 mg tablet 20 mg PO DAILY Qty: 90 3RF cefpodoxime 100 mg tablet 100 mg PO BID 10 Days Qty: 20 0RF Rx Instructions: must administer with a meal/food furosemide 40 mg tablet 40 mg PO DAILY Qty: 90 1RF sitagliptin phosphate 100 mg tablet 100 mg PO DAILY Qty: 90 1RF (DME) miscellaneous medical supply Misc See Rx Instructions .Route Qty: 1 0RF Rx Instructions: Sling for left arm shoulder, elbow, wrist wear daily atorvastatin 40 mg tablet 40 mg PO BEDTIME Qty: 90 3RF cholecalciferol (vitamin D3) 25 mcg (1,000 unit) Tablet 25 mcg PO DAILY psyllium husk [Fiber (psyllium husk)] 0.4 gram Capsule 0.4 g PO DAILY carboxymethylcellulose sodium 1 % Drops, Liquid Gel 1 drp OPHTHALMIC (EYE) BID PRN (Reason: Dry Eyes) melatonin 10 mg Tablet 10 mg PO BEDTIME omeprazole 20 mg Capsule,Delayed Release(Dr/Ec) 20 mg PO BID@0630,1630 Qty: 180 0RF ferrous sulfate 325 mg (65 mg iron) Tablet 325 mg PO DAILY Qty: 90 0RF metoprolol succinate [Toprol XL] 50 mg tablet extended release 24 hr 50 mg PO DAILY Qty: 30 5RF gabapentin 300 mg capsule 300 mg PO BID Qty: 180 1RF acetaminophen 325 mg tablet 650 mg PO Q8H PRN (Reason: Pain) albuterol sulfate 90 mcg/actuation HFA aerosol inhaler 1 inh inhalation QID PRN (Reason: shortness of breath or wheezing) Qty: 8.5 3RF Referrals: Emiliano Marie MD [Primary Care Provider, Internal Medicine] - 3 days Print Language: Hungarian
[2024-11-07 16:54] LABS: MANUAL DIFF FLAG NO
[2024-11-07 16:57] LABS: Hematocrit 32.6 % (42.0-52.0); Hemoglobin 10.8 g/dl (14.0-18.0); Imm Gran Abs Auto 0.03 X10*3/uL (0.00-0.03); Imm Gran Pct Auto 0.4 % (0.0-0.4); Lymphocytes Absolute Auto 2.0 X10*3/uL (1.2-4.9); Mean Corpuscular HGB Conc 33.1 g/dl (31.0-36.0); Mean Corpuscular Hemoglobin 28.5 pg (27.0-33.0); Mean Corpuscular Volume 86.0 fL (80.0-98.0); NRBC Abs Auto 0.000 X10*3/uL (0.0-0.012); NRBC Pct Auto 0.0 /100WBC (0.0-0.2); Platelet Count 150 X10*3/uL (160-400); Red Blood Count 3.79 X10*6/uL (4.60-5.80); White Blood Count 8.1 X10*3/uL (4.8-10.8)
[2024-11-07 17:10] LABS: Alanine Aminotransferase 19 U/L (0-40); Albumin Level 4.4 g/dL (3.5-5.0); Alkaline Phosphatase 182 U/L (39-117); Anion Gap 14 (12-20); Aspartate Amino Transferase 30 U/L (5-37); Blood Urea Nitrogen 22 mg/dL (9-16); Calcium 9.7 mg/dL (8.4-10.2); Carbon Dioxide 28 mmol/L (22-29); Chloride 100 mmol/L (96-108); Creatinine Clr Calc Pharmacy 42.7; Estimated Glomerular Filt Rate 42; Magnesium 2.1 mg/dL (1.6-2.6); Potassium 4.8 mmol/L (3.3-5.1); Sodium 137 mmol/L (135-145); Total Protein 7.4 g/dL (6.5-8.0)
[2024-11-07 18:51] VITALS: BP 134/56; PULSE 61; RESP 17; TEMP 36.8; O2SAT 97
--- NOTE | 2024-11-07 20:18 | ED.LOWEXIN ---
HPI - Extremity Injury (Lower) General Chief Complaint: Extremity Injury, Lower Stated Complaint: Pain in lower rt leg Time Seen by Provider: 11/07/24 19:36 History of Present Illness HPI Narrative: Patient is a 79-year-old male with a history of having right leg pain. Patient's leg pain started yesterday. Denies any trauma no falls. Pain is worse at the knees. Patient has noticed some mild swelling. Has a history of being on Xarelto. No fever no chills. No change in skin color. No travel history. No history of blood clots in the past. Related Data Home Medications ?Medication ?Instructions ?Recorded ?Confirmed acetaminophen 325 mg tablet 650 mg PO Q8H PRN Pain 07/10/24 10/10/24 cholecalciferol (vitamin D3) 25 25 mcg PO DAILY 07/28/24 10/10/24 mcg (1,000 unit) tablet psyllium husk 0.4 gram capsule 0.4 g PO DAILY 07/28/24 10/10/24 (Fiber (psyllium husk)) carboxymethylcellulose sodium 1 % 1 drp ophthalmic (eye) BID PRN Dry 08/26/24 10/10/24 eye liquid gel drops Eyes melatonin 10 mg tablet 10 mg PO BEDTIME 08/26/24 10/10/24 Previous Rx's ?Medication ?Instructions ?Recorded rivaroxaban 20 mg tablet (Xarelto) 20 mg PO DAILY #90 tabs 03/23/24 gabapentin 300 mg capsule 300 mg PO BID #180 caps 06/06/24 albuterol sulfate 90 mcg/actuation 1 inh inhalation QID PRN shortness 07/10/24 aerosol inhaler of breath or wheezing #8.5 grams metoprolol succinate 50 mg 50 mg PO DAILY #30 tabs 08/16/24 tablet,extended release 24 hr (Toprol XL) ferrous sulfate 325 mg (65 mg 325 mg PO DAILY #90 tabs 08/30/24 iron) tablet omeprazole 20 mg capsule,delayed 20 mg PO BID@0630,1630 #180 caps 08/30/24 release cefpodoxime 100 mg tablet 100 mg PO BID uti 10 days #20 tabs 09/07/24 furosemide 40 mg tablet 40 mg PO DAILY #90 tabs 10/16/24 sitagliptin phosphate 100 mg tablet 100 mg PO DAILY #90 tabs 10/17/24 miscellaneous medical supply #1 ea 11/06/24 atorvastatin 40 mg tablet 40 mg PO BEDTIME #90 tabs 11/07/24 Allergies Allergy/AdvReac Type Severity Reaction Status Date / Time prednisone Allergy Unknown GI Verified 11/07/24 16:17 Review of Systems Review of Systems: Positive pain to the left shoulder Yes all other systems are reviewed and are negative PMFSH Past Medical History Attestation statement: The following information was validated with the patient. Medical History Left scapholunate ligament tear Rupture of distal biceps tendon Class 1 obesity with body mass index (BMI) of 31.0 to 31.9 in adult Rotator cuff tear, left Swelling of left elbow Localized swelling of left forearm Left arm swelling Leg swelling Dysuria Duodenal ulcer Aortic stenosis Cardiac pacemaker in situ Speaking difficulty TIA (transient ischemic attack) Insomnia Hospital discharge follow-up History of echocardiogram Hypertriglyceridemia Tubular adenoma Dyspnea on exertion Obesity (BMI 30-39.9) Right shoulder injury Right shoulder pain Cough Raynaud disease Edema Hyperlipemia HTN (hypertension) Type 2 diabetes mellitus PAF (paroxysmal atrial fibrillation) Surgical History S/P TAVR (transcatheter aortic valve replacement) History of colonoscopy (~01/04/20) History of cardiac cath History of cataract surgery Family History Family History Father No problems noted. Mother No problems noted. Paternal Grandfather CVD (cardiovascular disease) Paternal Grandmother No problems noted. Maternal Grandfather CVD (cardiovascular disease) Maternal Grandmother No problems noted. 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 Oriented X3. No acute distress. Eyes: Pupils equal, round and reactive to light. ENT: Pharynx normal. Neck: Normal inspection. Neck supple. No lymph nodes noted. No crepitus CVS: Normal heart rate and rhythm. Pulses normal. Normal S1 and S2 Respiratory: No respiratory distress. Breath sounds normal. No Wheezing. No rales Abdomen: Soft and nontender. No rigidity. No distention. good BS x4 Skin: Skin warm and dry. Normal skin color. Normal skin turgor. Extremities: Positive mild swelling to the right knee. Distal pulses intact. Sensation intact. Skin intact. Neuro: Oriented X 3. No motor deficit. No sensory deficit. Moving all extermities. No slurred speech Medical Decision Making Medical Decision Making MDM Narrative: Doppler of the right lower extremity was done. Radiology's reading was that it was positive for a Chandra's cyst. Patient is white count is normal. Hemoglobin is 10.8. Patient is is approximately baseline. Glucose is 133 LFTs okay Doppler shows the Chandra's cyst. Likely the cause of patient's symptoms. Will ask patient's take Tylenol for pain ice elevate in stable condition. Differential Diagnosis Differential Diagnoses: The differential diagnosis associated with the presentation includes DVT versus Chandra cyst Admission/Observation Consideration of admission/observation: Escalation of care including admission/observation considered Lab Data [facility] Lab Attestation statement: I reviewed the patient's lab results. 11/07/24 16:48 11/07/24 16:48 Labs: Lab Results 11/07/24 Range/Units 16:48 WBC 8.1 (4.8-10.8) X10*3/uL RBC 3.79 L (4.60-5.80) X10*6/uL Hgb 10.8 L (14.0-18.0) g/dl Hct 32.6 L (42.0-52.0) % MCV 86.0 (80.0-98.0) fL MCH 28.5 (27.0-33.0) pg MCHC 33.1 (31.0-36.0) g/dl RDW 17.3 H (11.0-16.0) % Plt Count 150 L (160-400) X10*3/uL MPV 8.7 L (9.4-12.4) fL Immature Gran % (Auto) 0.4 (0.0-0.4) % Neut % (Auto) 55.2 (45-73) % Lymph % (Auto) 24.9 (20-40) % Woods % (Auto) 14.6 H (2-11) % Eos % (Auto) 4.2 H (0-4) % Baso % (Auto) 0.7 (0-2) % Lymph # (Auto) 2.0 (1.2-4.9) X10*3/uL Woods # (Auto) 1.2 (0.1-1.2) X10*3/uL Eos # (Auto) 0.3 (0.0-0.4) X10*3/uL Baso # (Auto) 0.1 (0.0-0.2) X10*3/uL Abs Immat Gran (auto) 0.03 (0.00-0.03) X10*3/uL Absolute Neuts (auto) 4.5 (2.0-8.3) x10*3/uL Absolute Nucleated RBC 0.000 (0.0-0.012) X10*3/uL Nucleated RBC % (auto) 0.0 (0.0-0.2) /100WBC Sodium 137 (135-145) mmol/L Potassium 4.8 (3.3-5.1) mmol/L Chloride 100 (96-108) mmol/L Carbon Dioxide 28 (22-29) mmol/L Anion Gap 14 (12-20) BUN 22 H (9-16) mg/dL Creatinine 1.59 H (0.5-1.4) mg/dL Estim Creat Clear Calc 42.7 Estimated GFR 42 Random Glucose 133 H (60-115) mg/dL Calcium 9.7 (8.4-10.2) mg/dL Magnesium 2.1 (1.6-2.6) mg/dL Total Bilirubin 0.5 (0.0-1.0) mg/dL Direct Bilirubin 0.2 (0.0-0.5) mg/dL AST 30 (5-37) U/L ALT 19 (0-40) U/L Alkaline Phosphatase 182 H (39-117) U/L Total Protein 7.4 (6.5-8.0) g/dL Albumin 4.4 (3.5-5.0) g/dL Radiology Impression Discussion of test interpretation with radiology: I have reviewed the radiologist's reading. External Record Review External record reviewed: Primary care record Chronic Conditions History of peripheral vascular disease, diabetes, hyperlipidemia, hypertension, TIAs status post pacemaker. History of GI bleed Social Determinants Patient?s care significantly limited by Social Determinants of Health including: Problems related to primary support group Discharge Plan Discharge Clinical Impression: Chandra cyst Patient Disposition: Home, Self-Care Instructions: Chandra Cyst (ED) Prescriptions: No Action Xarelto 20 mg tablet 20 mg PO DAILY Qty: 90 3RF cefpodoxime 100 mg tablet 100 mg PO BID 10 Days Qty: 20 0RF Rx Instructions: must administer with a meal/food furosemide 40 mg tablet 40 mg PO DAILY Qty: 90 1RF sitagliptin phosphate 100 mg tablet 100 mg PO DAILY Qty: 90 1RF (DME) miscellaneous medical supply Misc See Rx Instructions .Route Qty: 1 0RF Rx Instructions: Sling for left arm shoulder, elbow, wrist wear daily atorvastatin 40 mg tablet 40 mg PO BEDTIME Qty: 90 3RF cholecalciferol (vitamin D3) 25 mcg (1,000 unit) Tablet 25 mcg PO DAILY psyllium husk [Fiber (psyllium husk)] 0.4 gram Capsule 0.4 g PO DAILY carboxymethylcellulose sodium 1 % Drops, Liquid Gel 1 drp OPHTHALMIC (EYE) BID PRN (Reason: Dry Eyes) melatonin 10 mg Tablet 10 mg PO BEDTIME omeprazole 20 mg Capsule,Delayed Release(Dr/Ec) 20 mg PO BID@0630,1630 Qty: 180 0RF ferrous sulfate 325 mg (65 mg iron) Tablet 325 mg PO DAILY Qty: 90 0RF metoprolol succinate [Toprol XL] 50 mg tablet extended release 24 hr 50 mg PO DAILY Qty: 30 5RF gabapentin 300 mg capsule 300 mg PO BID Qty: 180 1RF acetaminophen 325 mg tablet 650 mg PO Q8H PRN (Reason: Pain) albuterol sulfate 90 mcg/actuation HFA aerosol inhaler 1 inh inhalation QID PRN (Reason: shortness of breath or wheezing) Qty: 8.5 3RF Referrals: Emiliano Marie MD [Primary Care Provider, Internal Medicine] - 3 days Print Language: Romanian
[2024-11-07 20:43] VITALS: BP 134/56; PULSE 61; RESP 17; TEMP 36.8; O2SAT 97
== END 2024-11-07 21:02 | disposition home or self-care (01) ==
PROVIDERS: Physician Assistant Medical; Emergency Provider Emergency Medicine Emergency Medical Services; PCP Internal Medicine
DX: M71.21 Synovial cyst of popliteal space [Baker], right knee (principal); R60.0 Localized edema; Z79.899 Other long term (current) drug therapy; Z87.891 Personal history of nicotine dependence
CPT/HCPCS: 36415; 80048; 80076; 83735; 85025; 93971; 99283; 99284

== ENCOUNTER → 2024-11-07 16:16 | Outpatient (BNV) | payer MEDICARE, OTHER, SELFPAY | PROVIDERS: PCP Internal Medicine; Visit Provider Radiology Diagnostic Radiology | DX: M79.661 Pain in right lower leg (principal) | CPT/HCPCS: 93971 ==

== ENCOUNTER 2024-11-13 14:48 | Outpatient (AMB) | payer MEDICARE, OTHER, SELFPAY ==
--- NOTE | 2024-11-13 14:51 | MHC.PC.OV ---
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 Accompanied by: Self / Same As Patient Allergies prednisone Allergy (Unknown, Verified 11/13/24 17:22) GI Medication List - Last Reconciled 11/13/24 by Katherin Slade PA-C acetaminophen 650 mg PO Q8H PRN albuterol sulfate 90 mcg/actuation 1 inh inhalation QID PRN atorvastatin 40 mg PO BEDTIME carboxymethylcellulose sodium 1% 1 drp ophthalmic (eye) BID PRN cholecalciferol (vitamin D3) 25 mcg PO DAILY ferrous sulfate 325 mg PO DAILY furosemide (Lasix) 20 mg PO DAILY gabapentin 300 mg PO BID leg brace (Knee Brace Large-XLarge) Knee brace extra large lifitegrast 5% (Xiidra) 1 drp ophthalmic (eye) BID metoprolol succinate ER (Toprol XL) 50 mg PO DAILY miscellaneous medical supply Sling for left arm shoulder, elbow, wrist wear daily omeprazole 20 mg PO BID@0630,1630 oxymetazoline 0.05% (Afrin (oxymetazoline)) 2 sprays intranasal Q12H PRN 3 days psyllium husk (Fiber (psyllium husk)) 0.4 grams PO DAILY rivaroxaban (Xarelto) 20 mg PO DAILY sitagliptin phosphate 100 mg PO DAILY tramadol 50 mg PO DAILY Tobacco use date assessed: 09/11/24 Dental Screening Dental Screen Date: 08/06/24 Did you have a dental visit in the last 12 months?: Yes Did you have a dental problem in the last 6 months where you did not have access to dental care?: No Was dental information given to patient?: Patient has dentist HPI Chandra's cyst HPI Details The patient is a 79-year-old male presenting with an ER follow-up for a vitreous cyst and evaluation of a Chandra's cyst. The Chandra's cyst was identified during an ultrasound of the right lower extremity on November 07, which was negative for deep vein thrombosis but showed a pulsatile venous waveform suggesting possible elevation of right atrial pressure. The cyst measures 4.9 cm and is associated with mild swelling and pain in the right lower extremity, which has been present for approximately two weeks. The patient has a history of right-sided heart failure and chronic heart disease, which may be contributing to the swelling in the right leg. He is under the care of a consulting senior practice director and recently had an echocardiogram in June, which did not suggest increased right atrial pressures. Therefore I discussed this with Dr. Helton the consulting senior practice director and he recommended starting the patient on 20 mg of Lasix daily. The patient also reports a distal biceps tendon tear and a scapholunate ligament tear in the left arm, likely due to lifting heavy groceries, resulting in pain and swelling. Additionally, there are moderate degenerative changes in the wrist, suggesting arthritis, and a possible inflammatory arthropathy. The patient has a history of diabetes mellitus, currently managed with Januvia, and his hemoglobin A1c was 6.7 on November 05. Social History - Functional status: The patient is responsible for caring for his , indicating a level of independence and activity. [facility] Medical History (Updated 11/13/24 @ 17:32 by Katherin Slade PA-C) Arthritis Chronic heart disease Synovial cyst of popliteal space [Chandra], right knee Right leg swelling Left scapholunate ligament tear Rupture of distal biceps tendon Class 1 obesity with body mass index (BMI) of 31.0 to 31.9 in adult Rotator cuff tear, left Swelling of left elbow Localized swelling of left forearm Left arm swelling Leg swelling Dysuria Duodenal ulcer Aortic stenosis Cardiac pacemaker in situ Speaking difficulty TIA (transient ischemic attack) Insomnia Hospital discharge follow-up History of echocardiogram Hypertriglyceridemia Tubular adenoma Dyspnea on exertion Obesity (BMI 30-39.9) Right shoulder injury Right shoulder pain Cough Raynaud disease Edema Hyperlipemia HTN (hypertension) Type 2 diabetes mellitus PAF (paroxysmal atrial fibrillation) Surgical History S/P TAVR (transcatheter aortic valve replacement) History of colonoscopy (~01/04/20) History of cardiac cath History of cataract surgery Family History Father No problems noted. Mother No problems noted. Paternal Grandfather CVD (cardiovascular disease) Paternal Grandmother No problems noted. Maternal Grandfather CVD (cardiovascular disease) Maternal Grandmother No problems noted. 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 1. Little interest or pleasure in doing things: not at all 2. Feeling down, depressed, or hopeless: not at all 3. Trouble falling or staying asleep, or sleeping too much: not at all 4. Feeling tired or having little energy: not at all 5. Poor appetite or overeating: not at all 6. Feeling bad about yourself - or that you are a failure or have let yourself or your family down: not at all 7. Trouble concentrating on things, such as reading the newspaper or watching television: not at all 8. Moving or speaking so slowly that other people could have noticed. Or the opposite - being so fidgety or restless that you have been moving around a lot more than usual: not at all 9. Thoughts that you would be better off or of hurting yourself in some way: not at all Total score: 0 Depression Screening Interpretation: Negative Depression Screening Done: Yes 75297 - PHQ-9 Billing: Yes Source: Developed by Drs. Anselmo Gill, Kimberly Salazar, Will Kasper and colleagues, with an educational archana from [email or web address]. Thrive Questionnaire Date Thrive assessed: 08/27/24 I am a: Patient What is your living situation today?: I have a steady place to live Within the past 12 months, did the food you bought not last and you didn't have the money to get more?: Never true Within the past 12 months, did you worry whether your food would run out before you got money to buy more?: Never true Do you have trouble paying for medicines?: No Do you have trouble getting transportation to medical appointments?: No Do you have trouble paying your heating and electricity bill?: No Do you have trouble taking care of your child, family member or friend?: No Do you have trouble with day-to-day activities such as bathing, preparing meals, shopping, managing finances, etc.?: No Are you currently unemployed and looking for a job?: No Are you interested in more education?: No Please select the resources that you would like help with: None Currently or been in a relationship where the following occur: No concerns reported THRIVE Score: 0 AUDIT C Alcohol Use Questionnaire (AUDIT-C) 1. How often do you have a drink containing alcohol?: Monthly or less 2. How many drinks containing alcohol do you have on a typical day when you are drinking?: 1 or 2 3. How often do you have six or more drinks on one occasion?: Never Total Score: 1 Score Reviewed/Action Taken: No JEANA-7 AMB Questionnaire JEANA-7 Date JEANA - 7 assessed: 07/10/24 Feeling nervous, anxious, or on edge: 0 = Not at all Not being able to stop or control worryin = Not at all Worrying too much about different things: 0 = Not at all Trouble relaxin = Not at all Being so restless that it is hard to sit still: 0 = Not at all Becoming easily annoyed or irritable: 0 = Not at all Feeling afraid as if something awful might happen: 0 = Not at all Total JEANA-7 score (0-4 normal; 5-9 mild; 10-14 moderate; 15-21 severe): 0 Source: Developed by Drs. Anselmo Gill, Kimberly Salazar, Will Kasper and colleagues, with an educational archana from [email or web address]. JEANA-7 Assessment Billing JEANA-7 Assessment Tool: JEANA-7 Assessment 89313 Review of Systems Const Details: - Cardiovascular: Reports mild swelling and pain in the right lower extremity. Denies shortness of breath, palpitations, or increased fatigue. - Musculoskeletal: Reports pain and swelling in the left arm and shoulder, with a history of tendon tears. - Endocrine: Reports diabetes mellitus, managed with medication. - Ophthalmologic: Reports dry eyes, managed with lubricating eye drops. - Respiratory: Denies cough or dyspnea. Physical exam (Primary Care) Vital Signs: Last Vital Signs Temp 97.9 F 11/13/24 14:57 Pulse 60 11/13/24 14:57 Resp 16 11/13/24 14:57 BP 98/42 L 11/13/24 14:57 Pulse Ox 96 11/13/24 14:57 Oxygen Delivery Method Room Air 11/13/24 14:57 Care Plan Goal for BP management: <140/90 at Goal BMI Assessment/Plan discussion: High BMI High, discussed plan: lifestyle, weight reduction, dietary, physical activity and alcohol moderation Tobacco/Smoking Status: Tobacco use Status Tobacco use date assessed 09/11/24 11/13/24 14:57 Patient Tobacco Use Status Former Tobacco user 11/13/24 14:57 Tobacco use type Cigarette 11/13/24 14:57 PHQ-9: PHQ-9 Score PHQ-9: Total score 0 11/13/24 14:57 Depression Screening Interpretation: Negative Thrive Assessment: Date of Thrive Assessment Date Thrive assessed 08/27/24 11/13/24 14:57 Currently or been in a relationship where the following occur: No concerns reported Const Other: Appearance: Alert. Oriented X3. No acute distress. Head: Normal external exam. Normocephalic. Atraumatic. Eyes: Pupils are equal, round, and reactive to light. Extraocular movements intact. Conjunctiva and sclera normal. Eyelids normal. Throat: Pharynx normal. Uvula midline. Moist mucous membranes. Neck: Normal inspection. Neck supple. Full range of motion. Cardiovascular: Normal heart rate and rhythm. Heart sound normal. Pulses normal throughout. Good pulses noted in the lower extremities. Respiratory: No respiratory distress. Painless inspiration. Breath sounds normal. No wheezes/rales/rhonchi noted. Chest nontender. No accessory muscle usage noted or decreased air movement noted. Back: Full range of motion noted. Skin: Skin warm and dry. Normal skin color. Normal skin turgor. No rashes/lesions/lacerations noted. Extremities: Mild swelling and pain noted in the right lower extremity. No calf tenderness is noted. Mild pain to the posterior knee. Patient has limited range of motion of left shoulder/elbow/hand and wrist joint due to torn ligaments/tendons that have been chronic. Otherwise all other extremities exhibit normal range of motion nontender. Patient has normal pulses and no cyanosis normal capillary refill to upper extremities and lower extremities. Neuro: Oriented X 3. Patient moving all extremities walking with a cane. No focal deficits are noted. Results Reviewed Results Reviewed: - Ultrasound: Right lower extremity ultrasound on November 07 showed a 4.9 cm Chandra's cyst and pulsatile venous waveform, negative for deep vein thrombosis. - Echocardiogram: June echocardiogram did not suggest increased right atrial pressures. - CAT Scan: Left arm CAT scan showed distal biceps tendon tear, scapholunate ligament tear, and moderate degenerative changes. - Blood Work: Hemoglobin A1c was 6.7 on November 05. I also consulted with Dr. Helton the consulting senior practice director he reported that the patient can be started on Lasix 20 mg daily for the lower extremity edema. Although patient had an echocardiogram that did not reveal elevated right-sided heart pressures. Coding Level of Care Code Est Pt Level 5 (48639) Complex EM visit Add On G2211 Diagnoses Synovial cyst of popliteal space [Chandra], right knee M71.21 Chronic heart disease I51.9 Rupture of distal biceps tendon S46.219A Left scapholunate ligament tear S63.8X2A Arthritis M19.90 Type 2 diabetes mellitus E11.9 Additional Codes JEANA-7 Assessment Billing - JEANA-7 Assessment Tool: JEANA-7 Assessment 29411 ([id number]) PHQ-9 - 82639 - PHQ-9 Billing: Yes ([id number]) Assessment & Plan Assessment & Plan (1) Synovial cyst of popliteal space [Chandra], right knee: Code(s): M71.21 - Synovial cyst of popliteal space [Chandra], right knee Category: Medical Plan: The Chandra's cyst is being managed with an FANY wrap for compression and a knee immobilizer has been ordered to help alleviate symptoms. The patient is advised to monitor for any severe pain or bruising, which may indicate cyst rupture, and to follow up with vascular surgery if recommended by the consulting senior practice director. Condition is chronic and stable. (2) Chronic heart disease: Code(s): I51.9 - Heart disease, unspecified Category: Medical Plan: The patient is under the care of a consulting senior practice director and has recently had an echocardiogram, which did not show increased right atrial pressures. A BNP test was conducted to assess fluid retention, and the patient is advised to continue monitoring symptoms and follow up with cardiology as needed. The patient is being followed by a consulting senior practice director and is advised to continue regular follow-ups to manage chronic heart disease. Condition is chronic and stable. (3) Rupture of distal biceps tendon: Code(s): S46.219A - Strain of muscle, fascia and tendon of other parts of biceps, unspecified arm, initial encounter Category: Medical Plan: The patient is advised to follow up with orthopedics for management of the distal biceps tendon tear, which was confirmed by a CAT scan. Condition is chronic and stable. (4) Left scapholunate ligament tear: Code(s): S63.8X2A - Sprain of other part of left wrist and hand, initial encounter Category: Medical Plan: The patient is advised to follow up with orthopedics for management of the scapholunate ligament tear, which was confirmed by a CAT scan. Condition is chronic and stable. (5) Arthritis: Code(s): M19.90 - Unspecified osteoarthritis, unspecified site Category: Medical Plan: The patient is advised to manage arthritis symptoms with [id number] pain relief and to follow up with orthopedics for further evaluation and management. Condition is chronic and stable. (6) Type 2 diabetes mellitus: Code(s): E11.9 - Type 2 diabetes mellitus without complications Category: Medical Plan: The patient's diabetes is managed with Januvia, and recent blood work showed a hemoglobin A1c of 6.7. The patient is advised to continue current medication and monitor blood glucose levels regularly. Condition is chronic and stable. Plan Plan Patient was informed and verbally consented to the use of an ambient scribe for clinic note documentation during this visit. 1. Chandra's Cyst The Chandra's cyst is being managed with an FANY wrap for compression and a knee immobilizer has been ordered to help alleviate symptoms. The patient is advised to monitor for any severe pain or bruising, which may indicate cyst rupture, and to follow up with vascular surgery if recommended by the consulting senior practice director. 2. Right-Sided Heart Failure The patient is under the care of a consulting senior practice director and has recently had an echocardiogram, which did not show increased right atrial pressures. A BNP test was conducted to assess fluid retention, and the patient is advised to continue monitoring symptoms and follow up with cardiology as needed. 3. Chronic Heart Disease The patient is being followed by a consulting senior practice director and is advised to continue regular follow-ups to manage chronic heart disease. 4. Distal Biceps Tendon Tear The patient is advised to follow up with orthopedics for management of the distal biceps tendon tear, which was confirmed by a CAT scan. 5. Scapholunate Ligament Tear The patient is advised to follow up with orthopedics for management of the scapholunate ligament tear, which was confirmed by a CAT scan. 6. Arthritis The patient is advised to manage arthritis symptoms with [id number] pain relief and to follow up with orthopedics for further evaluation and management. 7. Diabetes Mellitus The patient's diabetes is managed with Januvia, and recent blood work showed a hemoglobin A1c of 6.7. The patient is advised to continue current medication and monitor blood glucose levels regularly. I discussed with the patient the findings of the ultrasound and the implications of the Chandra's cyst, including potential rupture and management options such as compression and immobilization. We reviewed the recent echocardiogram results and the consulting senior practice director's recommendations, including the need for a BNP test to assess fluid retention. I advised the patient to follow up with orthopedics for the management of the tendon and ligament tears and to continue diabetes management with Januvia. Orders: Referrals Vascular Surgery Referral M79.89 - Other specified soft tissue disorders Medications: New furosemide (Lasix) 20 mg PO DAILY 90 tabs 3RF tramadol 50 mg PO DAILY 10 tabs 0RF oxymetazoline 0.05% (Afrin (oxymetazoline)) 2 sprays intranasal Q12H PRN 15 mL 3RF nasal congestion 3 days lifitegrast 5% (Xiidra) administer approximately 12 hours apart 1 drp ophthalmic (eye) BID 20 ea 3RF Patient Instructions: - Use the FANY wrap and knee immobilizer as instructed to manage the Chandra's cyst. - Monitor for severe pain or bruising in the leg and seek medical attention if these occur. - Follow up with cardiology and orthopedics as scheduled. - Continue taking Januvia and monitor blood glucose levels regularly. - Use lubricating eye drops for dry eyes as needed.
[2024-11-13 14:57] VITALS: BP 98/42; PULSE 60; RESP 16; TEMP 36.6; O2SAT 96
== END 2024-11-13 15:41 | disposition home or self-care (01) ==
LOC: HO.HMCSH 14:48
PROVIDERS: PCP Internal Medicine; Visit Provider Physician Assistant Medical
DX: M71.21 Synovial cyst of popliteal space [Baker], right knee (principal); I51.9 Heart disease, unspecified; E11.9 Type 2 diabetes mellitus without complications; S46.219A Strain of muscle, fascia and tendon of other parts of biceps, unspecified arm, initial encounter; S63.8X2A Sprain of other part of left wrist and hand, initial encounter; M19.90 Unspecified osteoarthritis, unspecified site

== ENCOUNTER → 2024-11-13 14:48 | Outpatient (BNVA) | payer MEDICARE, OTHER, SELFPAY | PROVIDERS: PCP Internal Medicine; Visit Provider Physician Assistant Medical | DX: M71.21 Synovial cyst of popliteal space [Baker], right knee (principal); I51.9 Heart disease, unspecified; M19.90 Unspecified osteoarthritis, unspecified site; E11.9 Type 2 diabetes mellitus without complications; S63.8X2D Sprain of other part of left wrist and hand, subsequent encounter; S46.212D Strain of muscle, fascia and tendon of other parts of biceps, left arm, subsequent encounter | CPT/HCPCS: 96127; 99212 ==

== ENCOUNTER 2024-11-15 15:16 | Outpatient (AMB) | payer MEDICARE, OTHER, SELFPAY ==
--- NOTE | 2024-11-15 15:25 | MHC.OFFVIS ---
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 Pt states he also has Left UE swelling s/p ligament tears. Also had known cardiac issues per pt. 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 Complaints include pain over varicosities, swelling of lower extremities, cramping, fatigue, and heaviness of the lower extremities. It has been affecting there daily activities including walking. It is noted more so in right leg. It had gotten to the point where he had right leg swelling had an ultrasound which was negative for DVT. In addition he does complain of left upper extremity swelling. Patient denies any previous venous surgery or injections. Patient denies any history of DVT/ PE. Ultrasound dated 11/07/2024- for DVT. Positive for Chandra's cyst Patient denies any history of phlebitis. Trial of compression includes - [id number] They now present for vascular evaluation regarding their varicose veins. [facility] Medical History Arthritis Chronic heart disease Synovial cyst of popliteal space [Chandra], right knee Right leg swelling Left scapholunate ligament tear Rupture of distal biceps tendon Class 1 obesity with body mass index (BMI) of 31.0 to 31.9 in adult Rotator cuff tear, left Swelling of left elbow Localized swelling of left forearm Left arm swelling Leg swelling Dysuria Duodenal ulcer Aortic stenosis Cardiac pacemaker in situ Speaking difficulty TIA (transient ischemic attack) Insomnia Hospital discharge follow-up History of echocardiogram Hypertriglyceridemia Tubular adenoma Dyspnea on exertion Obesity (BMI 30-39.9) Right shoulder injury Right shoulder pain Cough Raynaud disease Edema Hyperlipemia HTN (hypertension) Type 2 diabetes mellitus PAF (paroxysmal atrial fibrillation) Surgical History S/P TAVR (transcatheter aortic valve replacement) History of colonoscopy (~01/04/20) History of cardiac cath History of cataract surgery Family History Father No problems noted. Mother No problems noted. Paternal Grandfather CVD (cardiovascular disease) Paternal Grandmother No problems noted. Maternal Grandfather CVD (cardiovascular disease) Maternal Grandmother No problems noted. 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 Cognitive needs: Yes (cane) Hearing needs: Yes (b/l hearing aids) Vision needs: Yes (reading glasses) Review of Systems Const Reports as per HPI ENT Reports no additional complaints Card Denies chest pain, Denies chest pain at rest and Denies chest pain with activity Resp Denies chest congestion and Denies cough GI Reports no additional complaints Musc Details: pain over varicosities, aching of lower extremities, swelling, cramping, heaviness and tiredness, itching Denies abnormal gait Skin/Breast Reports pruritus and Denies wounds Neuro Reports no additional complaints and Denies abnormal gait Psych Denies no additional complaints Physical Exam Vital Signs: BMI result Body Mass Index 30.7 Const General: cooperative, healthy appearing and comfortable Orientation/consciousness: oriented to person, oriented to place and oriented to time Neck Carotids: no bruits Chest Chest palpation & inspection: normal inspection of the chest and normal palpation of entire chest wall Resp Effort & Inspection: normal respiratory effort and able to speak in complete sentences Cardio Rate: regular rate Heart sounds: S1 normal heart sound present and S2 normal heart sound present Peripheral pulses: Peripheral pulses 2+ throughout GI Inspection: Yes normal to inspection Skin Other: +2 edema, right greater than left CEAP Classification C4 - skin color changes Ep - Etiology Primary As - superficial veins P - reflux General skin exam: dry skin Neuro General: oriented to person, oriented to place and oriented to time Extrem Other: Left upper extremity +1 to +2 edema Right lower extremity: full ROM, normal capillary refill and edema Left lower extremity: full ROM, normal capillary refill and edema Psych Mental Status: mental status grossly normal Assessment & Plan Assessment & Plan (1) Varicose veins of right lower extremity with inflammation: Code(s): I83.11 - Varicose veins of right lower extremity with inflammation Category: Medical Plan: In short, the patient has evidence of venous insufficiency. Lower extremity swelling may be also a secondary effect of heart disease as well. I have discussed the pathophysiology with the patient. In addition I have provided informational material regarding venous disease to the patient. We have discussed conservative measures including compression, elevation, and exercise. I have also provided a handout regarding appropriate use of compression stockings and where to purchase good compression stockings as well. I have taken the liberty of ordering venous insufficiency testing with the patient. They will follow up with me after testing. The patient had an opportunity to ask questions regarding the treatment plan. All questions were answered. Imaging studies, laboratory studies and physical exam results were discussed and reviewed in detail. No major barriers to understanding were identified. The patient expressed understanding and agreement with the above treatment plan. The patient is aware they should contact our office by phone for worsening of the current condition or the appearance of new symptoms. Thank you for allowing me to participate in the vascular care of this patient. If you have any questions or concerns regarding the treatment for the above condition please do not hesitate to contact me. The office telephone contact is [phone]. This note is constructed using voice recognition software. While every effort has been made to ensure accuracy, technical support consultant errors may have been included. Thank you for allowing me to participate in the care of your patient. Yours sincerely, Juanjo Feldman MD, FACS, R.P.V.I. (2) Left arm swelling: Code(s): M79.89 - Other specified soft tissue disorders Category: Medical Plan: The concern here is that me he may have developed central venous stenosis. Back in 07/05/2024 he had undergone TAVR and subsequently a pacemaker. He has noted progressive arm swelling since June of the left upper extremity. My suspicion is that he has developed central venous stenosis from the pacemaker leads. Should they continue to progress in his arm swelling increase I did request that he reach out to Cardiology. Pacemaker may need to be removed and placed in a different location. Once again he will follow up with us regarding his lower extremities. Thank you for allowing us to assist in his care Orders: Orders US venous duplex LE BI Today I83.11 - Varicose veins of right lower extremity with inflammation Coding Level of Care Code Est Pt Level 4 (65577) Diagnoses Varicose veins of right lower extremity with inflammation I83.11 Left arm swelling M79.89
[2024-11-15 15:29] VITALS: BMI 30.7
== END 2024-11-15 15:48 | disposition home or self-care (01) ==
LOC: HO.HVS 15:16
PROVIDERS: PCP Internal Medicine; Visit Provider Surgery Vascular Surgery
DX: I83.11 Varicose veins of right lower extremity with inflammation (principal); M79.89 Other specified soft tissue disorders
CPT/HCPCS: 99214

== ENCOUNTER → 2024-11-15 15:16 | Outpatient (BNVA) | payer MEDICARE, OTHER, SELFPAY | PROVIDERS: PCP Internal Medicine; Visit Provider Surgery Vascular Surgery | DX: I83.11 Varicose veins of right lower extremity with inflammation (principal); M79.89 Other specified soft tissue disorders | CPT/HCPCS: 99212 ==

== ENCOUNTER 2024-11-19 14:24 | Outpatient (AMB) | payer MEDICARE, OTHER, SELFPAY ==
--- NOTE | 2024-11-19 14:33 | MHC.OFFVIS ---
Vital Signs 11/19/24 14:34 Height 5 ft 9 in Weight 208 lb BMI 30.7 Intake Visit Reasons: OV- Left shoulder tear - DR referral Intake Note: Thaddeus is a 79 year old right hand dominant male who presents today for a follow up of his Left Shoulder. He was last seen with Dr. Cid who review his MRI and recommended possible surgery. Allergies prednisone Allergy (Unknown, Verified 11/19/24 14:35) GI HPI HPI OV- Left shoulder tear - DR referral: Details: Has [age]-year-old referral from Dr. Collins who has left shoulder rotator cuff arthropathy. He has had difficulty abducting his left arm for years. He thinks he hurt it lifting groceries approximately 6 months ago when he felt a pop. MRI however shows atrophied and retracted rotator cuff. [facility] Medical History Arthritis Chronic heart disease Synovial cyst of popliteal space [Chandra], right knee Right leg swelling Left scapholunate ligament tear Rupture of distal biceps tendon Class 1 obesity with body mass index (BMI) of 31.0 to 31.9 in adult Rotator cuff tear, left Swelling of left elbow Localized swelling of left forearm Left arm swelling Leg swelling Dysuria Duodenal ulcer Aortic stenosis Cardiac pacemaker in situ Speaking difficulty TIA (transient ischemic attack) Insomnia Hospital discharge follow-up History of echocardiogram Hypertriglyceridemia Tubular adenoma Dyspnea on exertion Obesity (BMI 30-39.9) Right shoulder injury Right shoulder pain Cough Raynaud disease Edema Hyperlipemia HTN (hypertension) Type 2 diabetes mellitus PAF (paroxysmal atrial fibrillation) Surgical History S/P TAVR (transcatheter aortic valve replacement) History of colonoscopy (~01/04/20) History of cardiac cath History of cataract surgery Family History Father No problems noted. Mother No problems noted. Paternal Grandfather CVD (cardiovascular disease) Paternal Grandmother No problems noted. Maternal Grandfather CVD (cardiovascular disease) Maternal Grandmother No problems noted. 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 He can get his hand to the back of his head however. He has full passive range motion left shoulder. Office Procedures Joint Inj/Aspir; Non-Pain Clin Joint Injection/Drain Details: Injected 1 mL of Decadron and 3 mL 1% lidocaine and 3 mL of 0.25% Marcaine. Site was prepped using aseptic technique. Patient tolerated the procedure well. Shoulders, Hips, Knees, Shoulder Injection Large joint : Left Shoulder Coding Procedure code (CPT) selection complete Results Reviewed Results Reviewed: I personally reviewed the MR images. MRI of the patient's left shoulder shows a chronic rotator cuff tear with retraction almost to the lip of the glenoid Assessment & Plan Assessment & Plan (1) Rotator cuff insufficiency of left shoulder: Code(s): M25.312 - Other instability, left shoulder Category: Medical Plan: This is a 79-year-old gentleman with rotator cuff arthropathy left shoulder. He is not a surgical candidate. We did discuss his problem and we discussed injection. He agreed to a left shoulder injection. This was done without difficulty. I did inform her of the hyperglycemic effects of steroids. (2) Type 2 diabetes mellitus: Code(s): E11.9 - Type 2 diabetes mellitus without complications Category: Medical Plan: I informed him of the hyperglycemic effects of steroids. Coding Level of Care Code Est Pt Level 4 (66164) Diagnoses Rotator cuff insufficiency of left shoulder M25.312 Type 2 diabetes mellitus E11.9 CPT Codes Shoulders, Hips, Knees, - Shoulder Injection Large joint : Left Shoulder ([id number])
[2024-11-19 14:34] VITALS: BMI 30.7
== END 2024-11-19 15:09 | disposition home or self-care (01) ==
LOC: HO.HOS 14:25
PROVIDERS: PCP Internal Medicine; Visit Provider Orthopaedic Surgery
DX: E11.9 Type 2 diabetes mellitus without complications (principal); M25.312 Other instability, left shoulder
CPT/HCPCS: 20610; 99213

== ENCOUNTER → 2024-11-19 14:24 | Outpatient (BNVA) | payer MEDICARE, OTHER, SELFPAY | PROVIDERS: PCP Internal Medicine; Visit Provider Orthopaedic Surgery | DX: M25.312 Other instability, left shoulder (principal); E11.9 Type 2 diabetes mellitus without complications | CPT/HCPCS: 20610; 99212; J0665; J1100; J2003 ==

== ENCOUNTER 2024-12-26 20:00 | Inpatient (IN) | payer MEDICARE, OTHER, SELFPAY ==
--- OUTSIDE RECORDS SUMMARY | 2024-06-22 08:30 | XMS_ITS ---
Author Organization [facility] Address [address] [place] [address] Care Team Providers Care Gear Machinist Name Role Phone Frank Emiliano Primary Care Provider Kelsie Coughlin Unavailable [phone] Reed Burt Unavailable [phone] Allergies Allergen (clinical drug ingredient) Drug/Non Drug Allergy documented on EMR Reaction Allergy Type Onset Date Status PredniSONE Unknown Drug Allergy Active Medications Medication SIG (Take, Route, Frequency, Duration) Notes Start Date End Date Status Colcrys 0.6 MG 1 tablet Orally Once a day; Duration: 30 day(s) 05/13/2014 Not-Nam ing Extra-Depth Diabetic Shoes with 3 Pair Custom heat-molded multi-density innersoles . for 1 year . Dx:niddm with neuropathy, foot deformity and preulcerative skin lesions; Duration: . Not-Taking Extra-Depth Diabetic Shoes with 3 Pair Custom heat-molded multi-density innersoles . for 1 year . Dx:niddm with neuropathy, foot deformity and preulcerative skin lesions; Duration: . 02/06/2014 Not-Taking Indomethacin 50 MG 1 capsule with food Orally Three times a day; Duration: 10 days 05/13/2014 Not-Takin g glyburide 5mg Not-Ta nikko Aspirin Not-Taking Colchicine 0.6 MG Orally No t-Taking Metoprolol Succinate ER 25 MG 1 tablet Orally Once a day Not-Taking Simvastatin 40 MG Orally No t-Taking Metformin & Diet Manage Prod 1,000mg twice a day Not-Taking Xarelto 20 MG Orally Active Multi Vitamin/Minerals Active Amoxicillin-Pot Clavulanate 875 875-125 MG one tab Orally every 12 hrs; Duration: 10 day(s) 01/10/2023 Not-Nam ing Amoxicillin-Pot Clavulanate 875 875-125 MG one tab Orally every 12 hrs; Duration: 30 days 04/21/2023 Not-Takin g Cipro 500 MG 1 tablet Orally ever y 12 hrs; Duration: 30 days 01/17/2023 Not-Takin g Januvia Active Furosemide 20 MG Orally Act esha Atorvastatin Calcium 40 MG 1 tablet Orally Once a day; Duration: 30 day(s) Active amLODIPine Besylate Active Voltaren 1 % as directed Externally Active Encounters Encounter Location Date Provider Diagnosis [facility] [address] [address] 06/22/2024 Reed Burt Plan Of Treatment Next Appt Details Provider Name:Kelsie Garcia nik, 02/25/2025 02:30:00 PM, [address] [place] [address], [phone], Progress Notes * Thaddeus VELÁSQUEZ JrDOB:1944 (79 yo M)Acc No.[id number]:06/22/2024 Progress Note Patient: Rachel Thaddeus BAH Jr Provider: Delia Burt DPM :1945 A ge:79 Y S ex:Male Date:06/22/2024 Address:[address] [place], [place] [phone] Pcp:Emiliano Marie Subjective: * Chief Complaints: * * Medical History: A rthritis, Back,Hip,and Knee pain, Broken bones, Cataracts, Chicken pox, Measles, Mumps, type II diabetes, Neuropathy, Sciatica, Pericarditis. * Medications: T aking Voltaren 1 % Gel as directed Externally , Taking amLODIPine Besylate , Taking Atorvastatin Calcium 40 MG Tablet 1 tablet Orally Once a day , Taking Furosemide 20 MG Tablet Orally , Taking Januvia , Taking Multi Vitamin/Minerals , Taking Xarelto 20 MG Tablet Orally , Not-Taking/PRN Cipro 500 MG Tablet 1 tablet Orally every 12 hrs , Not-Taking/PRN Amoxicillin-Pot Clavulanate 875 875-125 MG Tablet one tab Orally every 12 hrs , Not-Taking/PRN Amoxicillin-Pot Clavulanate 875 875-125 MG Tablet one tab Orally every 12 hrs , Not-Taking/PRN Metformin & Diet Manage Prod 1,000mg twice a day , Not-Taking/PRN Simvastatin 40 MG Tablet Orally , Not-Taking/PRN Metoprolol Succinate ER 25 MG Tablet Extended Release 24 Hour 1 tablet Orally Once a day , Not-Taking/PRN Colchicine 0.6 MG Tablet Orally , Not-Taking/PRN Aspirin , Not-Taking/PRN Extra-Depth Diabetic Shoes with 3 Pair Custom heat-molded multi-density innersoles . . for 1 year . Dx:niddm with neuropathy, foot deformity and preulcerative skin lesions , Not-Taking/PRN Extra-Depth Diabetic Shoes with 3 Pair Custom heat-molded multi-density innersoles . . for 1 year . Dx:niddm with neuropathy, foot deformity and preulcerative skin lesions , Not-Taking/PRN Colcrys 0.6 MG Tablet 1 tablet Orally Once a day , Not-Taking/PRN glyburide 5mg , Not-Taking/PRN Indomethacin 50 MG Capsule 1 capsule with food Orally Three times a day * Allergies: P redniSONE. Objective: * Vitals: Assessment: Plan: * Treatment: * Images: * The named appointment provid er may or may not be the originator of this progress note, and it is not deemed complete until electronically signed by the appointment provider. Sign off status: Pending * Provider: Delia Burt DPM Date: 0 06/22/2024 Generated for Alexandria brock/Skyler/Bronwyn on: 0 12/26/2024 08:32 PM EDT
--- OUTSIDE RECORDS SUMMARY | 2024-08-09 09:15 | XMS_ITS ---
Author Organization [facility] Address [address] [place] [address] Care Team Providers Care Mortgage Consultant Name Role Phone ADIN LOVELL Primary Care Provider Ronaldo Saha Jr, Miguel Bui REASON FOR VISIT Patient presents today for gerd Medications Medication SIG (Take, Route, Frequency, Duration) Notes Start Date End Date Status FeroSul 325 (65 Fe) MG Oral for 30 Active Gabapentin 300 MG Oral for 90 Active Multivitamin Adult - as directed Orally Active Prilosec 20 MG 2 capsule Orally twi ce a day for 10 day(s) Active Metamucil - as directed Orally Active Atorvastatin Calcium 40 MG 1 tablet Oral ly Once a day for 30 day(s) Active Xarelto 20 MG 1 tablet with food O rally Once a day for 30 day(s) Active amLODIPine Besylate 5 MG 1 tablet Orally Once a day for 30 day(s) Active Januvia 100 MG Orally Activ e Encounters Encounter Location Date Provider Diagnosis [facility] [address] [place] [address] 08/09/2024 Miguel Saha Jr Plan Of Treatment Next Appt Details Provider Name:Miguel soto Jr, 01/24/2025 02:15:00 PM, [address], [address], [place], [address], Progress Notes * MELY KAUR WDOB: [birth year] (79 yo M)Acc No.[id number]:08/09/2024 Progress Notes Patient: MELY SOMERS Provider: Rashda Saha MD :1945 A ge:79 Y S ex:Male Date:08/09/2024 Address:[address] [place], [place] [id number] Pcp:ADIN LOVELL Subjective: * Chief Complaints: * 1 . Patient presents today for gerd. * Medical History: * Medications: T aking Metamucil - Wafer as directed Orally , Taking Prilosec 20 MG Capsule Delayed Release 2 capsule Orally twice a day , Taking Januvia 100 MG Tablet Orally , Taking amLODIPine Besylate 5 MG Tablet 1 tablet Orally Once a day , Taking Xarelto 20 MG Tablet 1 tablet with food Orally Once a day , Taking Atorvastatin Calcium 40 MG Tablet 1 tablet Orally Once a day , Taking Multivitamin Adult - Tablet as directed Orally , Taking Gabapentin 300 MG Capsule Oral , Taking FeroSul 325 (65 Fe) MG Tablet Oral Objective: * Vitals: Assessment: Plan: * Treatment: * * The named appointment provid er may or may not be the originator of this progress note, and it is not deemed complete until electronically signed by the appointment provider. Sign off status: Pending * Provider: Rashad Saha MD Date: 0 08/09/2024 Generated for Alexandria brock/Skyler/Oswaldoitting on: 0 12/26/2024 08:32 PM EDT
[2024-12-26] VITALS (14 sets, daily range): BP systolic 92–114; BP diastolic 35–64; PULSE 76–94; RESP 13–29; TEMP 36.6–40.3; O2SAT 92–96; BMI 29.6
--- NOTE | ~2024-12-26 | US_ITS ---
EXAMINATION: US ABDOMEN LIMITED HISTORY: Elevated T bili TECHNIQUE: Real-time grayscale ultrasound imaging of the right upper quadrant was performed and images were reviewed. COMPARISON: Comparison is made with the prior examination dated 12/22/2017. FINDINGS: Liver: The right lobe of the liver measures 15.1 cm in size. The left lobe of the liver measures 10.7 cm in size. The liver demonstrates normal homogeneous echotexture. No focal mass or intrahepatic biliary ductal dilatation is identified. There is normal hepatopedal flow in the portal vein. Gallbladder and biliary tree: The gallbladder is unremarkable, without evidence of calculi, wall thickening, or pericholecystic fluid. There is no sonographic Ortiz sign. The common bile duct is normal in caliber measuring 6 mm. Right Kidney: The right kidney measures 10.6 cm in length. The right kidney is unremarkable, without evidence of masses, hydronephrosis, or calculi. Pancreas: The pancreas is obscured by bowel gas. Abdominal aorta and inferior vena cava: The visualized portions of the abdominal aorta and inferior vena cava are normal in caliber. There is no free fluid in the right upper quadrant. US/US abdomen limited IMPRESSION: Hepatomegaly. The pancreas is obscured by bowel gas. Otherwise unremarkable right upper quadrant ultrasound. Electronically signed by: Anselmo Choi MD 12/27/2024 09:06 AM EDT
--- NOTE | ~2024-12-26 | XR_ITS ---
CLINICAL HISTORY: sob 1 view chest x-ray Comparison: CR/SD/SR - XR CHEST 2 VIEWS - 10/02/24 14:15 EDT Findings: Left chest wall dual lead pacemaker/AICD with leads overlying the right atrium and right ventricle. Heart size is borderline enlarged. Bilateral pulmonary vascular congestion and small bilateral pleural effusions. No focal consolidation. Osteopenia. IMPRESSION: Borderline cardiomegaly and pulmonary vascular congestion. This document has been electronically signed by: Rl Hunter MD on 12/26/2024 21:27:13
--- NOTE | ~2024-12-26 | XR_ITS ---
EXAMINATION: XR CHEST 1 VIEW HISTORY: hypoxia persistent COMPARISON: Comparison is made with the prior examination dated 01/02/2025. FINDINGS: A single AP portable view of the chest performed at 8:51 AM is submitted. A left subclavian dual-chamber pacemaker is unchanged in position. Again seen are increased interstitial markings which may represent interstitial edema. There may be tiny bilateral pleural effusions. The heart is normal in size. A valve prosthesis is noted. There is degenerative disc disease of the spine. XR/XR chest 1V IMPRESSION: Probable mild interstitial edema. Electronically signed by: Anselmo Choi MD 01/07/2025 09:16 AM EDT
--- NOTE | ~2024-12-26 | XR_ITS ---
EXAMINATION: XR CHEST CLINICAL INFORMATION: persistent respiratory crackles COMPARISON: 12/29/2024. TECHNIQUE: AP view of the chest was obtained. FINDINGS: There is a dual-lead pacer device in the left hemithorax with leads extending into the right atrium and right ventricle. There is probable cardiac enlargement. TAVR in place. Mediastinal and hilar contours appear normal. Aortic mural calcification. Lungs demonstrate mild interstitial pulmonary edema with small layering effusions bilaterally. Appearance is similar to 12/29/2024. No focal osseous or soft tissue abnormality. XR/XR chest 1V IMPRESSION: No significant interval change from 12/29/2024. Interstitial pulmonary edema with small layering effusions. Electronically signed by: Delmer Gray MD 01/02/2025 02:51 PM EDT
--- NOTE | ~2024-12-26 | XR_ITS ---
CLINICAL HISTORY: Evaluate for pulmonary edema 1 view chest x-ray Comparison: CR - XR CHEST 1V - 12/26/24 20:47 EDT Findings: Underexpanded lungs with interstitial and central vascular prominence. Patchy ground-glass density in the lower lobes. Small effusions are noted. Cardiac and mediastinal contours are stable. No acute fracture. IMPRESSION: Findings suggest mild interstitial edema and small bilateral effusions. This document has been electronically signed by: Vish Tracy MD on 12/29/2024 09:50:14
--- NOTE | 2024-12-26 20:14 | ECG_ITS ---
Test Reason : SOB Blood Pressure : */* mmHG Vent. Rate : 87 BPM Atrial Rate : 87 BPM P-R Int : 210 ms QRS Dur : 120 ms QT Int : 362 ms P-R-T Axes : 36 32 -3 degrees QTcB Int : 435 ms Sinus rhythm with 1st degree A-V block with Premature atrial complexes Low voltage QRS Right bundle branch block Abnormal ECG When compared with ECG of 14-Sep-2024 15:59, Premature atrial complexes are now Present Nonspecific T wave abnormality no longer evident in Lateral leads Referred By: Nahomi Mathew Electronically Signed By: KATHRINE MARTIN
[2024-12-26] MEDS: Albuterol Sulfate 5 MG, Albuterol/Iprat 2.5/0.5MG 3 ML 3 ML INHALE (20:17)
--- NOTE | 2024-12-26 20:23 | ED.GENADULT ---
HPI - General Adult General Chief complaint: Dyspnea Stated complaint: weakness Time Seen by Provider: 12/26/24 20:14 Source: patient Mode of arrival: wheelchair Limitations: altered mental status History of Present Illness ED Provider: Dr. Tejeda HPI narrative: 79- year old male history of CAD, TAVR we will pacemaker implantation, leg edema, diabetes, TIA, SVT, hyperlipidemia presented hospital today for evaluation of cough shortness of breath and fever. Patient states he does have some sore throat. Nursing staff noticed that patient's temperature is 104 degrees. Patient does appear to be toxic, exam. He does appear to be short of breath and tachypneic. History is limited as patient is altered due to illness Related Data Home Medications ?Medication ?Instructions ?Recorded ?Confirmed acetaminophen 325 mg tablet 650 mg PO Q8H PRN Pain 07/10/24 12/26/24 cholecalciferol (vitamin D3) 25 25 mcg PO DAILY 07/28/24 12/26/24 mcg (1,000 unit) tablet omeprazole 20 mg capsule,delayed 20 mg PO BID@0630,1630 12/26/24 12/26/24 release sitagliptin phosphate 100 mg 100 mg PO DAILY 12/26/24 12/26/24 tablet (Januvia) tramadol 50 mg tablet 50 mg PO DAILY PRN Pain 12/26/24 12/26/24 Previous Rx's ?Medication ?Instructions ?Recorded rivaroxaban 20 mg tablet (Xarelto) 20 mg PO DAILY #90 tabs 03/23/24 albuterol sulfate 90 mcg/actuation 1 inh inhalation QID PRN shortness 07/10/24 aerosol inhaler of breath or wheezing #8.5 grams metoprolol succinate 50 mg 50 mg PO DAILY #30 tabs 08/16/24 tablet,extended release 24 hr (Toprol XL) ferrous sulfate 325 mg (65 mg 325 mg PO DAILY #90 tabs 08/30/24 iron) tablet miscellaneous medical supply #1 ea 11/06/24 atorvastatin 40 mg tablet 40 mg PO BEDTIME #90 tabs 11/07/24 leg brace (Knee Brace Large-XLarge) #1 ea 11/09/24 furosemide 20 mg tablet (Lasix) 20 mg PO DAILY #90 tabs 11/13/24 lifitegrast 5 % eye drops in a 1 drp ophthalmic (eye) BID #20 ea 11/13/24 dropperette (Xiidra) cyclosporine 0.1 % eye drops 1 drp ophthalmic (eye) BID #2 mL 11/14/24 gabapentin 300 mg capsule 300 mg PO BID #180 caps 12/19/24 Allergies Allergy/AdvReac Type Severity Reaction Status Date / Time prednisone Allergy Unknown GI Verified 12/26/24 20:22 Review of Systems Review of Systems: Unable to obtain due to confusion [facility] Past Medical History [facility] Narrative: Unable to obtain due to confusion Medical History Arthritis Chronic heart disease Synovial cyst of popliteal space [Chandra], right knee Right leg swelling Left scapholunate ligament tear Rupture of distal biceps tendon Class 1 obesity with body mass index (BMI) of 31.0 to 31.9 in adult Rotator cuff tear, left Swelling of left elbow Localized swelling of left forearm Left arm swelling Leg swelling Dysuria Duodenal ulcer Aortic stenosis Cardiac pacemaker in situ Speaking difficulty TIA (transient ischemic attack) Insomnia Hospital discharge follow-up History of echocardiogram Hypertriglyceridemia Tubular adenoma Dyspnea on exertion Obesity (BMI 30-39.9) Right shoulder injury Right shoulder pain Cough Raynaud disease Edema Hyperlipemia HTN (hypertension) Type 2 diabetes mellitus PAF (paroxysmal atrial fibrillation) Surgical History S/P TAVR (transcatheter aortic valve replacement) History of colonoscopy (~01/04/20) History of cardiac cath History of cataract surgery Family History Family History Father No problems noted. Mother No problems noted. Paternal Grandfather CVD (cardiovascular disease) Paternal Grandmother No problems noted. Maternal Grandfather CVD (cardiovascular disease) Maternal Grandmother No problems noted. 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 Cognitive needs: Yes (cane) Hearing needs: Yes (b/l hearing aids) Vision needs: Yes (reading glasses) Physical Exam ED Exam Exam: General: Appears toxic, ill, short of breath Head: Normacephalic, atraumatic ENT: oral mucosa moist, neck supple, no tracheal deviation Cardiovascular: Tachycardic rate, regular rhythm, no murmurs, rubbing, gallops Respiratory: Bibasilar crackles, wheezing appreciated on exam Gastrointestinal: Soft, non distended, non tender, non guarding Extremities: Trace edema bilateral lower extremity Neurological: Awake and alert, no facial droop noted Skin: Warm and dry Vital Signs: Vital Signs - 24 hr 12/26/24 20:18 12/26/24 20:21 12/26/24 20:25 Temperature 104.5 F H Pulse Rate 91 92 91 Respiratory Rate 20 29 H Blood Pressure 109/51 L 113/44 L Pulse Oximetry 92 Oxygen Delivery Method Aerosol Mask 12/26/24 20:40 12/26/24 20:55 12/26/24 21:11 Temperature Pulse Rate 88 91 92 Respiratory Rate Blood Pressure 114/35 L 107/51 L 103/42 L Pulse Oximetry Oxygen Delivery Method 12/26/24 21:26 12/26/24 21:49 Temperature 103 F H Pulse Rate 76 Respiratory Rate Blood Pressure 109/43 L Pulse Oximetry Oxygen Delivery Method BMI result Body Mass Index 29.6 Medications Administered Generic Name Dose Route Start Last Admin Trade Name Freq PRN Reason Stop Dose Admin Enoxaparin Sodium 40 mg 12/26/24 22:00 12/26/24 22:13 Enoxaparin Sodium 40 Mg/0.4 Ml Syringe SUBCUT 40 mg Q24H KIET Administration Lactated Ringer's 1,000 mls @ 100 mls/hr 12/26/24 22:00 12/26/24 23:02 Lr IVCONT 100 mls/hr .Q10H KIET Administration Vancomycin HCl 2,000 mg in 500 mls @ 250 mls/hr 12/26/24 22:00 12/26/24 22:55 Vancomycin/Ns IV 250 mls/hr Q24H KIET Administration Discontinued Medications Generic Name Dose Route Start Last Admin Trade Name Freq PRN Reason Stop Dose Admin Acetaminophen 975 mg 12/26/24 20:22 12/26/24 20:46 Acetaminophen 325 Mg Tablet PO 12/26/24 20:23 975 mg ONCE ONE Administration Azithromycin 500 mg 12/26/24 20:55 12/26/24 22:45 Azithromycin 500 Mg Tablet PO 12/26/24 20:56 Not Given ONCE ONE Ceftriaxone Sodium 2 gm 12/26/24 20:22 12/26/24 20:46 Ceftriaxone Sodium 2 Gm Vial IVPUSH 12/26/24 20:23 2 gm ONCE ONE Administration Albuterol Sulfate 5 mg/ 0 mg 12/26/24 20:12 12/26/24 20:17 Albuterol/Ipratropium 3 ml INHALE 12/26/24 20:13 7.5 each ONCE ONE Administration Hydrocortisone Sodium Succinate 100 mg 12/26/24 22:54 12/26/24 23:49 Hydrocortisone Sod Succ/Pf 100 Mg Vial IVPUSH 12/26/24 22:55 100 mg ONCE ONE Administration Sodium Chloride 1,000 mls @ 999 mls/hr 12/26/24 20:30 12/26/24 21:46 Ns IV 12/26/24 21:30 Infused .Q1H1M KIET Infusion Sodium Chloride 1,000 mls @ 999 mls/hr 12/26/24 22:00 12/26/24 23:03 Ns IV 12/26/24 23:00 Infused .Q1H1M KIET Infusion Piperacillin Sod/Tazobactam 100 mls @ 200 mls/hr 12/26/24 21:59 12/26/24 22:45 Sod 4.5 gm/ Sodium Chloride IV 12/26/24 22:28 Infused ONCE ONE Infusion Medical Decision Making Medical Decision Making MDM Narrative: 79-year-old male history of TAVR, pacemaker implantation, diabetes, hyperlipidemia presented hospital today for evaluation of shortness of breath and fever for the past 3 days with productive coughing. Sepsis lab work will be obtained from the patient this time. He does have a fever 104. He is tachypneic at this time as well. We will obtain a chest x-ray. CBC chemistry blood culture and lactic acid will be obtained as well. We will add a VBG and BNP on given patient's medical history. IV fluid will be initiated for patient, Tylenol will be given to the patient as well. We will empirically start patient on IV ceftriaxone. Flu and COVID tests will be obtained. I reviewed patient's lab work leukocytosis of 14.4 his lactic acid is not elevated. However based on his respiratory rate fever and white count. Patient is fit SIRS criteria. Patient also has organ dysfunction of pulmonary. Sepsis lab work were obtained. , patient bilirubin is elevated at 1.7, chest x-ray does shows patchy infiltrate consistent with pneumonia. Patient's blood pressure systolic remains in the 90s and 80s. I did give patient additional IV fluid stress dose IV hydrocortisone. I did brought in patient antibiotic to vancomycin and Zosyn given his history of diabetes. On reassessment patient's blood pressure has improved he remained stable at this time. We will plan to admit patient to the hospital. I did consider ICU admission. Differential Diagnosis Differential Diagnoses: The differential diagnosis associated with the presentation includes Pneumonia, sepsis, UTI, COPD, CHF, viral pneumonia Consult Healthcare Provider Management of the patient was discussed with: Hospitalist Lab Data MDM Lab Attestation statement: I reviewed the patient's lab results. 12/26/24 20:41 12/26/24 20:41 Labs: Lab Results 12/26/24 12/26/24 12/26/24 Range/Units 20:40 20:41 20:48 WBC 14.4 H (4.8-10.8) X10*3/uL RBC 3.72 L (4.60-5.80) X10*6/uL Hgb 11.0 L (14.0-18.0) g/dl Hct 32.3 L (42.0-52.0) % MCV 86.8 (80.0-98.0) fL MCH 29.6 (27.0-33.0) pg MCHC 34.1 (31.0-36.0) g/dl RDW 16.6 H (11.0-16.0) % Plt Count 142 L (160-400) X10*3/uL MPV 9.9 (9.4-12.4) fL Immature Gran % (Auto) 0.6 H (0.0-0.4) % Neut % (Auto) 84.0 H (45-73) % Lymph % (Auto) 5.0 L (20-40) % Boundary % (Auto) 10.0 (2-11) % Eos % (Auto) 0.1 (0-4) % Baso % (Auto) 0.3 (0-2) % Lymph # (Auto) 0.7 L (1.2-4.9) X10*3/uL Boundary # (Auto) 1.4 H (0.1-1.2) X10*3/uL Eos # (Auto) 0.0 (0.0-0.4) X10*3/uL Baso # (Auto) 0.0 (0.0-0.2) X10*3/uL Abs Immat Gran (auto) 0.08 H (0.00-0.03) X10*3/uL Absolute Neuts (auto) 12.1 H (2.0-8.3) x10*3/uL Absolute Nucleated RBC 0.000 (0.0-0.012) X10*3/uL Nucleated RBC % (auto) 0.0 (0.0-0.2) /100WBC VBG pH (7.32-7.43) VBG pCO2 mmHg VBG pO2 mmHg VBG HCO3 (22-26) mmol/L VBG O2 Saturation % VBG Base Excess mmol/L Sodium 132 L (135-145) mmol/L Potassium 4.0 (3.3-5.1) mmol/L Chloride 100 (96-108) mmol/L Carbon Dioxide 20 L (22-29) mmol/L Anion Gap 16 (12-20) BUN 33 H (9-16) mg/dL Creatinine 1.64 H (0.5-1.4) mg/dL Estim Creat Clear Calc 40.7 Estimated GFR 41 Random Glucose 129 H (60-115) mg/dL Lactic Acid 1.7 (0.5-2.0) mmol/L Calcium 9.2 (8.4-10.2) mg/dL Magnesium 1.7 (1.6-2.6) mg/dL Total Bilirubin 1.7 H (0.0-1.0) mg/dL AST 126 H (5-37) U/L ALT 37 (0-40) U/L Alkaline Phosphatase 179 H (39-117) U/L Ammonia (13-55) umol/L Troponin I High Sens 21.4 (<3.5-35.0) ng/L B-Natriuretic Peptide 609 H (<100) pg/mL Total Protein 6.9 (6.5-8.0) g/dL Albumin 3.9 (3.5-5.0) g/dL Urine Color Yellow Urine Appearance Clear Urine pH 6.0 (5.0-9.0) Ur Specific Upper Tract >= 1.030 H (1.005-1.025) Urine Protein 100 (2+) H (Neg-Trace) mg/dL Urine Glucose (UA) Negative (Negative) mg/dL Urine Ketones Negative (Negative) mg/dL Urine Blood Moderate (2+) H (Negative) Urine Nitrite Negative (Negative) Ur Leukocyte Esterase Negative (Negative) Urine RBC 0-2 (0-2) /HPF Urine WBC 0-5 (0-5) /HPF Ur Squamous Epith Cells 0-2 (0-2) /HPF Urine Bacteria None Seen (None Seen) Hyaline Casts 0-2 (0-2) /LPF COVID-19 (NETTE) Negative (Negative) COVID-19 Clin Com See Note Influenza Type A (BETY) Negative (Negative) Influenza Type B (BETY) Negative (Negative) Influenza A & B Note See Note 12/26/24 Range/Units 20:49 WBC (4.8-10.8) X10*3/uL RBC (4.60-5.80) X10*6/uL Hgb (14.0-18.0) g/dl Hct (42.0-52.0) % MCV (80.0-98.0) fL MCH (27.0-33.0) pg MCHC (31.0-36.0) g/dl RDW (11.0-16.0) % Plt Count (160-400) X10*3/uL MPV (9.4-12.4) fL Immature Gran % (Auto) (0.0-0.4) % Neut % (Auto) (45-73) % Lymph % (Auto) (20-40) % Boundary % (Auto) (2-11) % Eos % (Auto) (0-4) % Baso % (Auto) (0-2) % Lymph # (Auto) (1.2-4.9) X10*3/uL Boundary # (Auto) (0.1-1.2) X10*3/uL Eos # (Auto) (0.0-0.4) X10*3/uL Baso # (Auto) (0.0-0.2) X10*3/uL Abs Immat Gran (auto) (0.00-0.03) X10*3/uL Absolute Neuts (auto) (2.0-8.3) x10*3/uL Absolute Nucleated RBC (0.0-0.012) X10*3/uL Nucleated RBC % (auto) (0.0-0.2) /100WBC VBG pH 7.42 (7.32-7.43) VBG pCO2 32 mmHg VBG pO2 34 mmHg VBG HCO3 21 L (22-26) mmol/L VBG O2 Saturation 45.0 % VBG Base Excess -1.9 mmol/L Sodium (135-145) mmol/L Potassium (3.3-5.1) mmol/L Chloride (96-108) mmol/L Carbon Dioxide (22-29) mmol/L Anion Gap (12-20) BUN (9-16) mg/dL Creatinine (0.5-1.4) mg/dL Estim Creat Clear Calc Estimated GFR Random Glucose (60-115) mg/dL Lactic Acid (0.5-2.0) mmol/L Calcium (8.4-10.2) mg/dL Magnesium (1.6-2.6) mg/dL Total Bilirubin (0.0-1.0) mg/dL AST (5-37) U/L ALT (0-40) U/L Alkaline Phosphatase (39-117) U/L Ammonia 19 (13-55) umol/L Troponin I High Sens (<3.5-35.0) ng/L B-Natriuretic Peptide (<100) pg/mL Total Protein (6.5-8.0) g/dL Albumin (3.5-5.0) g/dL Urine Color Urine Appearance Urine pH (5.0-9.0) Ur Specific Upper Tract (1.005-1.025) Urine Protein (Neg-Trace) mg/dL Urine Glucose (UA) (Negative) mg/dL Urine Ketones (Negative) mg/dL Urine Blood (Negative) Urine Nitrite (Negative) Ur Leukocyte Esterase (Negative) Urine RBC (0-2) /HPF Urine WBC (0-5) /HPF Ur Squamous Epith Cells (0-2) /HPF Urine Bacteria (None Seen) Hyaline Casts (0-2) /LPF COVID-19 (NETTE) (Negative) COVID-19 Clin Com Influenza Type A (BETY) (Negative) Influenza Type B (BETY) (Negative) Influenza A & B Note Independent Interpretation I performed an independent interpretation of an: EKG and Plain X-Ray Radiology Impression Discussion of test interpretation with radiology: I have reviewed the radiologist's reading. Chronic Conditions Cardiac disease Critical Care Time Critical Care Time Critical Care Time: Yes Total Critical Care Time: 60 Attestation: Time is exclusive of separately billable procedures. Time includes: direct patient care, patient reassessment, coordination of patient care, interpretation of data (laboratory data, pulse oximetry, arterial blood gases and chest xrays), review of patient's medical records, medical consultation and documentation of patient care. Procedures excluded from critical care time: central intravenous line placement and electrocardiography. Discharge Plan Discharge Clinical Impression: Pneumonia Qualifiers: Pneumonia type: due to unspecified organism Laterality: unspecified laterality Lung location: unspecified part of lung Qualified Code(s): J18.9 - Pneumonia, unspecified organism Sepsis Qualifiers: Sepsis type: sepsis due to unspecified organism Sepsis acute organ dysfunction status: with acute organ dysfunction Severe sepsis acute organ dysfunction type: acute respiratory failure Acute respiratory failure type: unspecified Severe sepsis shock status: unspecified Qualified Code(s): A41.9 - Sepsis, unspecified organism Patient Disposition: Admitted As Inpatient
--- NOTE | 2024-12-26 20:24 | PC.NURSE ---
RT to bedside upon pt's arrival to the room via ems stretcher. pt found to be awake, alert, oriented, but wifty at times and without acute distress noted. He has purulent drainage noted to the right eye and what appears to be green sputum on his najera/mustache. The pt is able to answer questions appropriately, makes his needs known and reports midsternal chest pain that is worse with deep inspiration/cough. Pt found to have a rectal temp of 104.5, tachypnic at 28-29 bpm, and intermittently tachycardic with a heart rate in the low 90s. The pt otherwise offers no complaints; denies sick contacts and confirms living at home alone with spouse who has parkinsons disease. Pt with 7.5mg duoneb running at the moment. MD aware and to bedside for primary evaluation, orders to be entered
--- OUTSIDE RECORDS SUMMARY | 2024-12-26 20:32 | XMS_ITS | Patient Health Record ---
[facility] Organization [facility] Address [address] [place] [address] Care Team Providers Care Pig Conveyor Operator Name Role Phone FrankEmiliano Primary Care Provider [phone] Kelsie Coughlin Unavailable [phone] Reed Burt Unavailable [phone] Allergies Allergen (clinical drug ingredient) Drug/Non Drug Allergy documented on EMR Reaction Allergy Type Onset Date Status PredniSONE Unknown Drug Allergy Active Results Component Value Reference Range Notes HEMOGLOBIN A1C (GLYCOHEMOGLO BIN) Reviewed date:11/22/2024 03:46:31 PM Interpretation: Performing Lab: Notes/Report: HEMOGLOBIN A1C % (HH) 67 HEMOGLOBIN A1C (GLYCOHEMOGLO BIN) Reviewed date:11/22/2024 03:54:02 PM Interpretation: Performing Lab: Notes/Report: HEMOGLOBIN A1C % (HH) 6.7 Reason For Referral No Information Medications Medication SIG (Take, Route, Frequency, Duration) Notes Start Date End Date Status Voltaren 1 % as directed Externally Active Metformin & Diet Manage Prod 1,000mg twice a day Not-Taking Amoxicillin-Pot Clavulanate 875 875-125 MG one tab Orally every 12 hrs; Duration: 10 day(s) 01/10/2023 Not-Nam ing Simvastatin 40 MG Orally No t-Taking Januvia Active Extra-Depth Diabetic Shoes with 3 Pair Custom heat-molded multi-density innersoles . for 1 year . Dx:niddm with neuropathy, foot deformity and preulcerative skin lesions; Duration: . 02/06/2014 Not-Taking Furosemide 20 MG Orally Act esha Aspirin Not-Taking Atorvastatin Calcium 40 MG 1 tablet Orally Once a day; Duration: 30 day(s) Active Colchicine 0.6 MG Orally No t-Taking amLODIPine Besylate Active Metoprolol Succinate ER 25 MG 1 tablet Orally Once a day Not-Taking Amoxicillin-Pot Clavulanate 875 875-125 MG one tab Orally every 12 hrs; Duration: 30 days 04/21/2023 Not-Takin g Indomethacin 50 MG 1 capsule with food Orally Three times a day; Duration: 10 days 05/13/2014 Not-Takin g Cipro 500 MG 1 tablet Orally ever y 12 hrs; Duration: 30 days 01/17/2023 Not-Takin g glyburide 5mg Not-Ta nikko Xarelto 20 MG Orally Active Colcrys 0.6 MG 1 tablet Orally Once a day; Duration: 30 day(s) 05/13/2014 Not-Nam ing Multi Vitamin/Minerals Active Extra-Depth Diabetic Shoes with 3 Pair Custom heat-molded multi-density innersoles . for 1 year . Dx:niddm with neuropathy, foot deformity and preulcerative skin lesions; Duration: . Not-Taking Immunizations Vaccine Route Administration Date Status Comme nts Influenza Unknown 02/12/2015 Administered Influenza Unknown 03/08/2017 Administered Influenza Unknown 04/17/2018 Administered Influenza Unknown 05/11/2019 Administered Influenza Unknown 03/12/2020 Administered Influenza Unknown 01/31/2024 Administered Pneumococcal Unknown 03/03/2015 Administered COVID-19 Moderna Vaccine Unknown 04/13/2021 Administere d 1st 05/22/20 2nd 06/12/20 Social History Tobacco Use: Social History Observation [...] Polyneuropathy due to type 2 diabetes mellitus (342918860) Type 2 diabetes mellitus with diabetic polyneuropathy (E11.42) Active confirmed Problem Acquired hammer toe of right foot (5840185680047140 ) Other hammer toe(s) (acquired), right foot (M20.41) Active confirmed Problem Acquired hammer toe of left foot (0446379228610817 ) Other hammer toe(s) (acquired), left foot (M20.42) Active confirmed Vital Signs Blood pressure diastolic 65 mm Hg 11/22/2024 Height 5 ft 10 in in 11/22/2024 Blood pressure systolic 128 mm Hg 11/22/2024 Weight 215 lbs 11/22/2024 BMI 30.85 kg/m2 11/22/2024 Procedures Procedure Date Ordered Date Performed Result Body Sit e 29938-NMUAPHW NAIL, 6 OR MORE 03/21/2024 N/A 41249-VCZA SKIN LESIONS, OVER 4 03/21/2024 N/A 94598-JIXDXSM NAIL, 6 OR MORE 08/23/2024 N/A Encounters Encounter Location Date Provider Diagnosis [address] [address] 03/21/2024 Kelsie Coughlin Type 2 diabetes mellitus with diabetic polyneuropathy E11.42 and Tinea unguium B35.[address] [address] 08/23/2024 Kelsie Coughlin Type 2 diabetes mellitus with diabetic polyneuropathy E11.42 ; Tinea unguium B35.1 ; Other hammer toe(s) (acquired), right foot M20.41 and Other hammer toe(s) (acquired), left foot M20.[address] [address] 11/22/2024 Kelsie Coughlin Type 2 diabetes mellitus with diabetic polyneuropathy E11.42 and Tinea unguium B35.[address] [address] 06/22/2024 Kelsie Coughlin Assessments Encounter Date Diagnosis (ICD Code) Assessment Notes Treatment Notes Treatment Clinical Notes Section Notes 03/21/2024 Type 2 diabetes mellitus with diabetic polyneuropathy (ICD-10 - E11.42) 03/21/2024 Tinea unguium (ICD-10 - B35.1) 08/23/2024 Type 2 diabetes mellitus with diabetic polyneuropathy (ICD-10 - E11.42) 08/23/2024 Tinea unguium (ICD-10 - B35.1) 11/22/2024 Type 2 diabetes mellitus with diabetic polyneuropathy (ICD-10 - E11.42) 11/22/2024 Tinea unguium (ICD-10 - B35.1) 08/23/2024 Other hammer toe(s) (acquired), right foot (ICD-10 - M20.41) Patient Educated with: DIABETIC FOOT CARE INSTRUCTIONS. pdf (DIABETIC FOOT CARE INSTRUCTIONS. pdf) 08/23/2024 Other hammer toe(s) (acquired), left foot (ICD-10 - M20.42) Plan Of Treatment Pending Test Test Name Order Date X ray : Ankle, right 2V 05/13/2014 *Uric Acid, Serum 05/13/2014 *CBC With Differential/Platelet 05/13/19 15 *Sedimentation Rate-Westergren 5 X ray : Foot, right 3V 02/06/2014 X ray : Foot, right 3V 05/13/2014 X ray : Foot, right 3V 01/17/2023 04617-IHWVMAZ NAIL, 6 OR MORE 01/16/2018 37717-SYJFGGW NAIL, 6 OR MORE 03/21/2024 49660-VDECWTO NAIL, 6 OR MORE 08/23/2024 98439-JJSHIWD NAIL, 6 OR MORE 04/13/2017 15542-PVJAUXN NAIL, 6 OR MORE 07/18/2017 38598-URWYKDC NAIL, 6 OR MORE 10/17/2017 83669-ULRFJJP NAIL, 6 OR MORE 04/17/2018 00240-QVRXDGU NAIL, 1-5 07/12/2016 25838-ACDHFRK NAIL, -5 10/13/2016 58252-LACKZWQ NAIL, -5 01/12/2017 13120-PCVXQGA NAIL, -5 06/30/2015 02073-QWXUGIF NAIL, -5 10/01/2015 62263-VMJAESD NAIL, -5 01/08/2016 98074-MBESKJZ NAIL, -5 04/12/2016 65561-YLSSVFI NAIL, 1-5 10/10/2014 95077-HEKALOW NAIL, 1-5 02/12/2015 62956- Debride <25 sq cm 02/23/2023 18816-NGQGECM SKIN/TISSUE 03/16/2023 72781-DPFORCC SKIN/TISSUE 01/10/2023 78151-SJQRSBI SKIN/TISSUE 05/05/2023 75265- I&D ABSCESS-COMPLICATED,MULTI 92468-EFQC SKIN LESIONS, OVER 4 07/19/19 18 47086-LORQ SKIN LESIONS, OVER 4 04/17/20 18 36569-NJCA SKIN LESIONS, OVER 4 03/21/20 24 55994-RSUG SKIN LESIONS, OVER 4 07/18/19 19 10328-DOAM SKIN LESIONS, OVER 4 10/17/19 19 59928-SSCA SKIN LESIONS, OVER 4 01/18/20 19 87014-VWPC SKIN LESIONS, OVER 4 04/18/20 19 85019-OXQL SKIN LESIONS, OVER 4 07/05/19 20 18756-KYZU SKIN LESIONS, OVER 4 09/27/19 20 97813-BGRS SKIN LESIONS, OVER 4 12/26/19 20 70380-UVQV SKIN LESIONS, OVER 4 03/19/20 20 91858-CPUP SKIN LESIONS, OVER 4 06/23/19 21 43245-KLCC SKIN LESIONS, OVER 4 09/23/19 21 93965-WQYI SKIN LESIONS, OVER 4 12/26/19 21 78601-NGIX SKIN LESIONS, OVER 4 03/30/20 21 21332-VYYM SKIN LESIONS, OVER 4 07/02/19 22 72403-UABE SKIN LESIONS, OVER 4 01/17/20 18 63250-EYOV SKIN LESIONS, OVER 4 10/18/19 18 36542-OPTO SKIN LESIONS, OVER 4 01/13/20 17 92596-GAUQ SKIN LESIONS, OVER 4 04/13/20 17 68456-DLJX SKIN LESIONS, OVER 4 02/13/20 15 05902-PNOS SKIN LESIONS, OVER 4 06/12/19 15 04806-QCRZ SKIN LESIONS, OVER 4 10/11/19 15 84982-FVLZ SKIN LESIONS, OVER 4 04/17/20 14 30471-ESUO SKIN LESIONS, OVER 4 04/12/20 16 28266-XVVJ SKIN LESIONS, OVER 4 01/08/20 16 14155-IGAX SKIN LESIONS, OVER 4 10/01/19 16 80034-OJLL SKIN LESIONS, OVER 4 06/30/19 16 02118-WLEI SKIN LESIONS, OVER 4 07/13/19 17 95373-MPFF SKIN LESIONS, OVER 4 10/14/19 17 69343-KHUP SKIN LESIONS, 2 TO 4 02/07/20 14 64977-MAAR NAIL(S) 02/06/2014 52335-RUVB NAIL(S) 04/17/2014 24853-NDYS NAIL(S) 10/10/2014 25937-GZJF NAIL(S) 06/12/2014 01942-LAGL NAIL(S) 02/12/2015 70389-GDHN NAIL(S) 07/12/2016 20180-EKGV NAIL(S) 01/12/2017 68902-ZJMA NAIL(S) 10/13/2016 14595-MOUB NAIL(S) 06/30/2015 61687-PJWQ NAIL(S) 10/01/2015 58343-WHQU NAIL(S) 01/08/2016 00998-WABH NAIL(S) 04/12/2016 43824-EFHILOSX OF HEMATOMA/FLUID 018 89017-QADJVEGH OF HEMATOMA/FLUID 023 Next Appt Details Provider Name:Kelsie Garcia nik, 02/25/2025 02:30:00 PM, [address] [facility] [address] [facility] [address], [place], [address], Insurance Providers Payer Name Payer Address Payer Phone Subscriber Number Group Number Insured Name Patient Relationship to Insured Coverage Start Date Coverage End Date Medicare National [employer] [address] [place] [address] [id number] Thaddeus Velásquez Self - patient is the insured [address] [place] [address] [address] [place], [place] [id number] [phone] [id number] Thaddeus Velásquez Self - patient is the insured Medical (General) History Medical History History ICD Code Arthritis Back,Hip,and Knee pain Broken bones Cataracts Chicken pox Measles Mumps type II diabetes Neuropathy Sciatica pericarditis Surgical History Surgery Date(Month/Year) cystoscopy cataract 2010 Hospitalization History Reason Date(Month/Year) [facility] nose bleed 2019 [facility] ER for chest pain. 11/08/2017 [facility] pt was light headed, sweaty. 03/2016
--- OUTSIDE RECORDS SUMMARY | 2024-12-26 20:33 | XMS_ITS | Patient Health Record ---
Author Organization [facility] Address [address] [place] [address] Care Team Providers Care Upper Lining Cementer Name Role Phone ADIN LOVELL Primary Care Provider Miguel Colon Jr Unavailable Allergies Allergen (clinical drug ingredient) Drug/Non Drug Allergy documented on EMR Reaction Allergy Type Onset Date Status PredniSONE upset stomach Drug Allergy Ac tive Reason For Referral No Information Medications Medication SIG (Take, Route, Frequency, Duration) Notes Start Date End Date Status Metamucil - as directed Orally Active Gabapentin 300 MG Oral for 90 Days Active Furosemide 40 MG Oral for 3 Days Active Metoprolol Succinate ER 50 MG Oral for 30 Days Active FeroSul 325 (65 Fe) MG Oral for 30 Active Gabapentin 300 MG Oral for 90 Active Multivitamin Adult - as directed Orally Active Atorvastatin Calcium 40 MG 1 tablet Oral ly Once a day for 30 day(s) Active Xarelto 20 MG 1 tablet with food O rally Once a day for 30 day(s) Active Albuterol Sulfate HFA 108 (90 Base) MCG/ACT Inhalation for 50 Days Active Januvia 100 MG Orally Activ e Omeprazole 20 MG Oral for 90 Days Active Prilosec 20 MG 2 capsule Orally twi ce a day for 10 day(s) Active Cefpodoxime Proxetil 100 MG Oral for 10 Days Active Immunizations Vaccine Route Administration Date Status Comme nts Flu vaccine no Preserv 3 and > Unknown 02/13/2014 Admin istered Influenza Unknown 03/02/2019 Administered Influenza Unknown 12/31/2020 Administered Influenza Unknown 09/19/2024 Refused Social History Alcohol Screen Question Answer Notes [...] Problem Status W/U Status Risk Notes Problem 759195478 Colon cancer screening (Z12.11) Active confirmed Problem 542418529 Change in bowel habits (R19.4) Active confirmed Problem Duodenal ulcer with hemorrhage (24546299) Duodenal ulcer with hemorrhage (K26.4) Active confirmed Problem 24782252 Diarrhea, unspecified type (R19.7) Active confirmed Problem 236678213 Gas bloat syndro me (K92.89) Active confirmed Problem 331959795 Gastroesophageal reflux disease, unspecified whether esophagitis present (K21.9) Active confirmed Vital Signs Temperature 99.1 degrees Fahrenheit 09/19/2024 Blood pressure diastolic 01 mm Hg 09/19/2024 Height 70.5 in 09/19/2024 Blood pressure systolic 001 mm Hg 09/19/2024 Weight 222 lbs 09/19/2024 BMI 31.4 kg/m2 09/19/2024 Encounters Encounter Location Date Provider Diagnosis [facility] [address] [place] [phone] 09/19/2024 Miguel Saha Jr Gastroesophageal reflux disease, unspecified whether esophagitis present K21.9 ; Gas bloat syndrome K92.89 and Duodenal ulcer with hemorrhage K26.4 [facility] [address] [place] [phone] 08/09/2024 Miguel Saha Jr Assessments Encounter Date Diagnosis (ICD Code) Assessment Notes Treatment Notes Treatment Clinical Notes Section Notes 09/19/2024 Gas bloat syndrome (ICD-10 - K92.89) At this time, Mely is doing well. He will continue omeprazole as directed. We discussed diet, lifestyle modifications , and weight management regarding the treatment of reflux. He is advised on what symptoms to watch for in terms of GI bleeding. Follow-up will be in 6 to 12 months. He will call if he has problems. Today's visit was 35 minutes. 09/19/2024 Gastroesophageal reflux disease, unspecified whether esophagitis present (ICD-10 - K21.9) At this time, Mely is doing well. He will continue omeprazole as directed. We discussed diet, lifestyle modifications , and weight management regarding the treatment of reflux. He is advised on what symptoms to watch for in terms of GI bleeding. Follow-up will be in 6 to 12 months. He will call if he has problems. Today's visit was 35 minutes. 09/19/2024 Duodenal ulcer with hemorrhage (ICD-10 - K26.4) At this time, Mely is doing well. He will continue omeprazole as directed. We discussed diet, lifestyle modifications , and weight management regarding the treatment of reflux. He is advised on what symptoms to watch for in terms of GI bleeding. Follow-up will be in 6 to 12 months. He will call if he has problems. Today's visit was 35 minutes. Plan Of Treatment Pending Test Test Name Order Date CBC w/o DIFF 02/11/2022 OCCULT BLOOD STOOL X3 (OBS) 04/16/2022 STOOL WBC 02/11/2022 OVA & PARASITES (O&P) 02/11/2022 US ABD 04/08/2022 TSH REFLEX FREE T4 02/11/2022 CALPROTECTIN, STOOL 02/11/2022 GI PANEL 02/11/2022 Future Test Test Name Order Date COLONOSCOPY 08/14/2014 COLONOSCOPY 12/20/2019 Next Appt Details Provider Name:Miguel soto , 01/24/2025 02:15:00 PM, [address] [place] [address], [address], [place], [address], Insurance Providers Payer Name Payer Address Payer Phone Subscriber Number Group Number Insured Name Patient Relationship to Insured Coverage Start Date Coverage End Date MED[employer] [address] [place] [address] [id number] MELY KAUR Self - patient is the insured [facility] [address] [place] [address] [id number] MELY KAUR Self - patient is the insured Medical (General) History Medical History History ICD Code Colonoscopy 01/04/20, tubular adenoma, further screening is not recommended based on age. type II diabetes elevated Cholesterol pericarditis Afib hypertension Aortic stenosis pacemaker Surgical History Surgery Date(Month/Year) cardiac pacemeker toe nail removal due to infection cataract-lens implants tonsillectomy
[2024-12-26 20:51] LABS: MANUAL DIFF FLAG NO
[2024-12-26 20:52] LABS: Hematocrit 32.3 % (42.0-52.0); Hemoglobin 11.0 g/dl (14.0-18.0); Imm Gran Abs Auto 0.08 X10*3/uL (0.00-0.03); Imm Gran Pct Auto 0.6 % (0.0-0.4); Lymphocytes Absolute Auto 0.7 X10*3/uL (1.2-4.9); Mean Corpuscular HGB Conc 34.1 g/dl (31.0-36.0); Mean Corpuscular Hemoglobin 29.6 pg (27.0-33.0); Mean Corpuscular Volume 86.8 fL (80.0-98.0); NRBC Abs Auto 0.000 X10*3/uL (0.0-0.012); NRBC Pct Auto 0.0 /100WBC (0.0-0.2); Platelet Count 142 X10*3/uL (160-400); Red Blood Count 3.72 X10*6/uL (4.60-5.80); White Blood Count 14.4 X10*3/uL (4.8-10.8)
[2024-12-26 20:56] LABS: VBG HCO3 21 mmol/L (22-26); VBG O2 % Saturation 45.0 %
[2024-12-26 21:02] LABS: Ammonia 19 umol/L (13-55)
[2024-12-26 21:08] LABS: Appearance Urine Clear; Glucose Urine UA Negative (Negative); PH 6.0 (5.0-9.0); Specific Gravity - Urine >= 1.030 (1.005-1.025); UMIC TRIGGER UA YES
[2024-12-26 21:09] LABS: COVID-19 Test Negative (Negative); IDNOW Serial# 55D5AD1C
[2024-12-26 21:09] LABS: Alanine Aminotransferase 37 U/L (0-40); Albumin Level 3.9 g/dL (3.5-5.0); Alkaline Phosphatase 179 U/L (39-117); Anion Gap 16 (12-20); Aspartate Amino Transferase 126 U/L (5-37); Blood Urea Nitrogen 33 mg/dL (9-16); Calcium 9.2 mg/dL (8.4-10.2); Carbon Dioxide 20 mmol/L (22-29); Chloride 100 mmol/L (96-108); Creatinine Clr Calc Pharmacy 40.7; Estimated Glomerular Filt Rate 41; Magnesium 1.7 mg/dL (1.6-2.6); Potassium 4.0 mmol/L (3.3-5.1); Sodium 132 mmol/L (135-145); Total Protein 6.9 g/dL (6.5-8.0)
[2024-12-26 21:11] LABS: IDNOW Serial# 6674DD1D; Influenza B2 Negative (Negative)
[2024-12-26 21:11] LABS: Venous Blood Gas Refer to POC result
[2024-12-26 21:16] LABS: B Type Natriuretic Peptide 609 pg/mL (<100)
[2024-12-26 21:16] LABS: Troponin-I High Sensitivity 21.4 ng/L (<3.5-35.0)
--- NOTE | 2024-12-26 21:57 | P.HPHOSP_ITS ---
History of Present Illness Date of Service: 12/26/24 Chief Complaint: SOB 79-year-old male with a past medical history of HTN, HLD, diabetes, paroxysmal AFib, aortic stenosis status post TAVR, TIA, duodenal ulcer, obesity, SVT, history of cardiac pacemaker,; presented to the hospital with a chief complaint of cough and shortness of breath. Patient mentioned that over the past few days he has been having sore throat. Has been having cough with occasional sputum production. Reports having shortness of breath on exertion. Denies any chest pain. Denies any nausea vomiting or diarrhea. Denies any urinary symptoms. Review of all other systems is negative except mentioned above ER course: Per ER team, patient on presentation noted to be febrile to 104 F; exam was benign; mildly tachypneic; chest x-ray showed patchy infiltrate concerning for pneumonia. Given antibiotics. Patient qualified for sepsis. Received sepsis fluids. Blood pressure within the soft side. [facility] Medical History (Updated 12/27/24 @ 19:14 by Quinn Acosta MD) Pneumonia Cardiac pacemaker in situ Arthritis Chronic heart disease Synovial cyst of popliteal space [Chandra], right knee Right leg swelling Left scapholunate ligament tear Rupture of distal biceps tendon Class 1 obesity with body mass index (BMI) of 31.0 to 31.9 in adult Rotator cuff tear, left Swelling of left elbow Localized swelling of left forearm Left arm swelling Leg swelling Dysuria Duodenal ulcer Aortic stenosis Speaking difficulty TIA (transient ischemic attack) Insomnia Hospital discharge follow-up History of echocardiogram Hypertriglyceridemia Tubular adenoma Dyspnea on exertion Obesity (BMI 30-39.9) Right shoulder injury Right shoulder pain Cough Raynaud disease Edema Hyperlipemia HTN (hypertension) Type 2 diabetes mellitus PAF (paroxysmal atrial fibrillation) Family History Father No problems noted. Mother No problems noted. Paternal Grandfather CVD (cardiovascular disease) Paternal Grandmother No problems noted. Maternal Grandfather CVD (cardiovascular disease) Maternal Grandmother No problems noted. Surgical History S/P TAVR (transcatheter aortic valve replacement) History of colonoscopy (~01/04/20) History of cardiac cath History of cataract surgery 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 Cognitive needs: Yes (cane) Hearing needs: Yes (b/l hearing aids) Vision needs: Yes (reading glasses) Meds Allergies Allergy/AdvReac Type Severity Reaction Status Date / Time prednisone Allergy Unknown GI Verified 12/26/24 20:22 Active Medications: Current Medications Acetaminophen (Acetaminophen 325 Mg Tablet) 650 mg PO Q6H PRN PRN Reason: Pain, Mild 1-3,fever,headache Calcium Carbonate (Calcium Carbonate 750 Mg Tab.Chew) 750 mg PO Q4H PRN PRN Reason: Heartburn Enoxaparin Sodium (Enoxaparin Sodium 40 Mg/0.4 Ml Syringe) 40 mg SUBCUT Q24H KIET Lactated Ringer's (Lr) 1,000 mls @ 100 mls/hr IVCONT .Q10H KIET Magnesium Hydroxide (Milk Of Magnesia 30 Ml Oral.Susp) 30 ml PO DAILY PRN PRN Reason: Constipation Melatonin (Melatonin 3 Mg Tablet) 6 mg PO BEDTIME PRN PRN Reason: Insomnia Sodium Chloride (0.9 % Sodium Chloride Flush 3 Ml Syringe) 3 ml IVFLUSH QSHIFT KIET Home Medications ?Medication ?Instructions ?Recorded ?Confirmed ?Last Taken ?Type acetaminophen 325 mg tablet 650 mg PO Q8H PRN Pain 03/2612/26/24 Unknown History cholecalciferol (vitamin D3) 25 25 mcg PO DAILY 12/26/24 12/26/24 History mcg (1,000 unit) tablet omeprazole 20 mg capsule,delayed 20 mg PO BID@0630,163 0 12/26/24 12/26/24 12/26/24 History release sitagliptin phosphate 100 mg 100 mg PO DAILY 12/26/24 12/26/24 12/26/24 History tablet (Januvia) tramadol 50 mg tablet 50 mg PO DAILY PRN Pain 12/0112/26/24 Unknown History Physical Exam 2 Vital Signs and Narrative: Vital Signs: Last Vital Signs Temp 103 F H 12/26/24 21:56 Pulse 76 12/26/24 21:56 Resp 22 H 12/26/24 21:56 BP 109/43 L 12/26/24 21:26 Pulse Ox 92 12/26/24 20:21 O2 Del Method Aerosol Mask 12/26/24 20:21 Oxygen Flow Rate 6 12/26/24 20:21 BMI result Body Mass Index 29.6 Gen: Appears be in no acute distress HEENT: NCAT, Moist mucosa. Pulmonary: Coarse breath sounds CVS: Normal S1-S2 Abdomen: BS+, Soft, Nontender Extremities: Warm well perfused Neuro: Alert and awake. Results Labs 12/27/24 05:01 12/27/24 05:01 Labs: Laboratory Results - last 24 hr 12/26/24 12/26/24 12/26/24 20:40 20:41 20:48 MCV 86.8 MCH 29.6 MCHC 34.1 RDW 16.6 H Plt Count 142 L MPV 9.9 Immature Gran % (Auto) 0.6 H Neut % (Auto) 84.0 H Lymph % (Auto) 5.0 L [place] % (Auto) 10.0 Eos % (Auto) 0.1 Baso % (Auto) 0.3 Lymph # (Auto) 0.7 L [place] # (Auto) 1.4 H Eos # (Auto) 0.0 Baso # (Auto) 0.0 Abs Immat Gran (auto) 0.08 H Absolute Neuts (auto) 12.1 H Absolute Nucleated RBC 0.000 Nucleated RBC % (auto) 0.0 VBG pH VBG pCO2 VBG pO2 VBG HCO3 VBG O2 Saturation VBG Base Excess Anion Gap 16 Estim Creat Clear Calc 40.7 Estimated GFR 41 Random Glucose 129 H Lactic Acid 1.7 Calcium 9.2 Magnesium 1.7 Total Bilirubin 1.7 H AST 126 H ALT 37 Alkaline Phosphatase 179 H Ammonia B-Natriuretic Peptide 609 H Total Protein 6.9 Albumin 3.9 Urine Color Yellow Urine Appearance Clear Urine pH 6.0 Ur Specific Nora >= 1.030 H Urine Protein 100 (2+) H Urine Glucose (UA) Negative Urine Ketones Negative Urine Blood Moderate (2+) H Urine Nitrite Negative Ur Leukocyte Esterase Negative Urine RBC 0-2 Urine WBC 0-5 Ur Squamous Epith Cells 0-2 Urine Bacteria None Seen Hyaline Casts 0-2 COVID-19 (NETTE) Negative COVID-19 Clin Com See Note Influenza Type A (BETY) Negative Influenza Type B (BETY) Negative Influenza A & B Note See Note 12/26/24 20:49 MCV MCH MCHC RDW Plt Count MPV Immature Gran % (Auto) Neut % (Auto) Lymph % (Auto) [place] % (Auto) Eos % (Auto) Baso % (Auto) Lymph # (Auto) [place] # (Auto) Eos # (Auto) Baso # (Auto) Abs Immat Gran (auto) Absolute Neuts (auto) Absolute Nucleated RBC Nucleated RBC % (auto) VBG pH 7.42 VBG pCO2 32 VBG pO2 34 VBG HCO3 21 L VBG O2 Saturation 45.0 VBG Base Excess -1.9 Anion Gap Estim Creat Clear Calc Estimated GFR Random Glucose Lactic Acid Calcium Magnesium Total Bilirubin AST ALT Alkaline Phosphatase Ammonia 19 B-Natriuretic Peptide Total Protein Albumin Urine Color Urine Appearance Urine pH Ur Specific Nora Urine Protein Urine Glucose (UA) Urine Ketones Urine Blood Urine Nitrite Ur Leukocyte Esterase Urine RBC Urine WBC Ur Squamous Epith Cells Urine Bacteria Hyaline Casts COVID-19 (NETTE) COVID-19 Clin Com Influenza Type A (BETY) Influenza Type B (BETY) Influenza A & B Note Assessment and Plan (1) Sepsis: Qualifiers: Sepsis type: sepsis due to unspecified organism Sepsis acute organ dysfunction status: unspecified Qualified Code(s): A41.9 - Sepsis, unspecified organism Status: Acute Plan 79-year-old male with a past medical history of HTN, HLD, diabetes, paroxysmal AFib, aortic stenosis status post TAVR, TIA, duodenal ulcer, obesity, SVT, history of cardiac pacemaker,; presented to the hospital with a chief complaint of cough and shortness of breath. Noted to have sepsis in the setting of pneumonia. Severe Sepsis: Pneumonia: Patient blood pressure on soft side. Received IV fluids. Also received hydrocortisone in the ER. Continue ceftriaxone azithromycin Continue maintenance IV fluids Follow-up cultures Will obtain urine Legionella, strep pneumo, rapid strep test, throat culture. Paroxysmal AFib: Continue home Xarelto Diabetes: Insulin sliding scale Peptic ulcer disease: Ppi Hypertension: Hold home metoprolol. Hold home Lasix. CKD: Patient's creatinine stabilized around 1.51.6 lately. Will monitor Elevated T bili: Will obtain right upper quadrant ultrasound DVT prophylaxis: Patient on Xarelto Code status: Full code Quality Stroke Does the patient have a stroke diagnosis?: No VTE Prior VTE?: No VTE Risk Level:: Medical - moderate - high VTE Device Contraindication: Treatment Not Indicated VTE Drug Contraindication: N/A - Med Ordered
--- NOTE | 2024-12-26 22:27 | PHA.MEDREC ---
Pharmacy Consult ? Medication Reconciliation Pharmacy has completed the medication reconciliation. Spoke to patient to confirm medication list. Per patient, he is taking furosemide 20 mg daily, xarelto 20 mg daily, tramadol 50 mg daily prn pain. Last dose of medication was today 12/26/24 AM.
[2024-12-26] MEDS: vancomycin/NS 2,000 MG/500 ML PLAST..BAG 250 MG IV (22:55)
[2024-12-26] MEDS: Lactated Ringers 1,000 ML 100 ML IVCONT (23:02)
[2024-12-26] MEDS: Hydrocortisone Sod Succ/PF 100 MG VIAL IVPUSH (23:49)
[2024-12-27] VITALS (24 sets, daily range): BP systolic 92–143; BP diastolic 42–85; PULSE 62–115; RESP 15–21; TEMP 36.4–37.2; O2SAT 91–97
--- NOTE | 2024-12-27 00:59 | PC.NURSE ---
RN received new orders from hospitalist regarding LR bolus for this patient d/t his continued hypotension and low maps despite IVF interventions. Pt continues to rest comfortably in the stretcher, with O2 in place via NC and no distress noted. He offers no complaints, reports feeling better and also appears better than he did upon initial presentation. The pt is awaiting bed assignment at this time and is aware of plan for admission. IVF currently infusing without s/s of complications now.
[2024-12-27] MEDS: Lactated Ringers 500 ML 999 ML IV (01:10)
--- NOTE | 2024-12-27 01:14 | PC.NURSE ---
RN has been in communication with hospitalist via [employer] regarding the pt's low bps and maps, new orders obtained for a 500ml LR bolus which was hung without issue. Pt continues to rest comfortably, remains with baseline mentation, conversing freely and making his needs known. He endorses 2/10 lung pain when he coughs. Pt does not appear to be in any apparent distress at this time as he does not exhibit any outward signs or labored breathing and he converses in full/complete sentences.
[2024-12-27 05:40] LABS: MANUAL DIFF FLAG NO
[2024-12-27 05:50] LABS: Hematocrit 28.6 % (42.0-52.0); Hemoglobin 9.5 g/dl (14.0-18.0); Imm Gran Abs Auto 0.10 X10*3/uL (0.00-0.03); Imm Gran Pct Auto 0.8 % (0.0-0.4); Lymphocytes Absolute Auto 0.7 X10*3/uL (1.2-4.9); Mean Corpuscular HGB Conc 33.2 g/dl (31.0-36.0); Mean Corpuscular Hemoglobin 30.1 pg (27.0-33.0); Mean Corpuscular Volume 90.5 fL (80.0-98.0); NRBC Abs Auto 0.000 X10*3/uL (0.0-0.012); NRBC Pct Auto 0.0 /100WBC (0.0-0.2); Platelet Count 119 X10*3/uL (160-400); Red Blood Count 3.16 X10*6/uL (4.60-5.80); White Blood Count 12.1 X10*3/uL (4.8-10.8)
[2024-12-27 06:12] LABS: Alanine Aminotransferase 31 U/L (0-40); Albumin Level 3.4 g/dL (3.5-5.0); Alkaline Phosphatase 148 U/L (39-117); Anion Gap 14 (12-20); Aspartate Amino Transferase 94 U/L (5-37); Blood Urea Nitrogen 30 mg/dL (9-16); Calcium 8.5 mg/dL (8.4-10.2); Carbon Dioxide 19 mmol/L (22-29); Chloride 105 mmol/L (96-108); Creatinine Clr Calc Pharmacy 48.7; Estimated Glomerular Filt Rate 50; Potassium 3.9 mmol/L (3.3-5.1); Sodium 134 mmol/L (135-145); Total Protein 6.1 g/dL (6.5-8.0)
[2024-12-27] MEDS: Lactated Ringers 1,000 ML 100 ML IVCONT (08:13)
--- NOTE | 2024-12-27 08:25 | PC.NURSE ---
Pt axox3 sitting up in bed. unlabored resp. skin pwd. only complaining of fatigue. LS faint crackles. NSR on monitor. aware of plan for admission. hospital bed available for increased comfort while he awaits room assignment.
--- NOTE | 2024-12-27 09:09 | PC.NURSE ---
update to Sergey, son, on phone
--- NOTE | 2024-12-27 11:03 | MHC.CM.PN ---
PT REPORTS HE LIVES WITH HIS WHO HAS P[facility]SONS HE IS INDEPENDENT WITH CARE AND USES A CANE, HE ALSO HAS A WALKER IF NEEDED HE HAS NO SERVICES NOW, BUT HAS HAD [facility] IN THE PAST AND WOULD WANT THEM AT DC IF INDICATED COPY OF HCP REQUESTED PCP: ADIN LOVELL IMM DELIVERED DCP: HOME S[facility] TO TRANSPORT
--- NOTE | 2024-12-27 12:20 | P.PNIM_ITS ---
Subjective Subjective Date of Service: 12/27/24 Interval History: Breathing improved has been having SOB and ARELLANO especially with exertion and up and downstairs the past few weeks Fever x1 week Denies orthopnea No lightheadedness or dizziness Review of Systems Review of Systems: Yes all other systems are reviewed and are negative Physical Exam 2 Exam: Exam: General: AOx3, no acute distress Resp: Diffuse crackles CVS: S1, S2, RRR GI: +BS, NT, no distention Skin: Warm, dry Neuro: Cranial nerves II-XII grossly intact bilaterally. Motor grossly intact bilaterally Extremities: No edema Psych: Appropriate affect Vital Signs: Vital Signs: Last Vital Signs Temp 97.7 F 12/27/24 08:10 Pulse 70 12/27/24 08:10 Resp 18 12/27/24 08:10 BP 112/48 L 12/27/24 08:10 Pulse Ox 95 12/27/24 08:10 O2 Del Method Nasal Cannula 12/27/24 08:10 O2 Flow Rate 2 12/27/24 08:10 Oxygen Flow Rate 6 12/26/24 20:21 BMI result Body Mass Index 29.6 Objective Data Active Medications Acetaminophen (Acetaminophen 325 Mg Tablet) 650 mg PO Q6H PRN PRN Reason: Pain, Mild 1-3,fever,headache Albuterol/Ipratropium (Albuterol/Iprat 2.5/0.5mg 3 Ml Ampul.Neb) 3 ml INHALE RQ4H WHILE AWAKE PRN PRN Reason: Shortness of Breath Azithromycin (Azithromycin 500 Mg Tablet) 500 mg PO Q24H KIET Benzocaine (Throat Lozenge, Medicated Lozenge) 1 lozenge MUCOUS MEM Q2H PRN PRN Reason: Sore Throat Calcium Carbonate (Calcium Carbonate 750 Mg Tab.Chew) 750 mg PO Q4H PRN PRN Reason: Heartburn Ceftriaxone Sodium (Ceftriaxone Sodium 1 Gm Vial) 1 gm IVPUSH Q24H KIET Lactated Ringer's (Lr) 1,000 mls @ 100 mls/hr IVCONT .Q10H KIET On Hold: 12/27/24 08:36 Last Admin: 12/27/24 08:13 Dose: 100 mls/hr Documented By: APARNA Magnesium Hydroxide (Milk Of Magnesia 30 Ml Oral.Susp) 30 ml PO DAILY PRN PRN Reason: Constipation Melatonin (Melatonin 3 Mg Tablet) 6 mg PO BEDTIME PRN PRN Reason: Insomnia Rivaroxaban (Rivaroxaban 20 Mg Tablet) 20 mg PO DAILY@1700 KIET Sodium Chloride (0.9 % Sodium Chloride Flush 3 Ml Syringe) 3 ml IVFLUSH QSHIFT KIET Last Admin: 12/27/24 08:13 Dose: Not Given Documented By: APARNA Non-Admin Reason: IV Running Labs 12/27/24 05:01 12/27/24 05:01 Labs: Laboratory Results - last 24 hr 12/26/24 12/26/24 12/26/24 20:40 20:41 20:48 MCV 86.8 MCH 29.6 MCHC 34.1 RDW 16.6 H Plt Count 142 L MPV 9.9 Immature Gran % (Auto) 0.6 H Neut % (Auto) 84.0 H Lymph % (Auto) 5.0 L [place] % (Auto) 10.0 Eos % (Auto) 0.1 Baso % (Auto) 0.3 Lymph # (Auto) 0.7 L [place] # (Auto) 1.4 H Eos # (Auto) 0.0 Baso # (Auto) 0.0 Abs Immat Gran (auto) 0.08 H Absolute Neuts (auto) 12.1 H Absolute Nucleated RBC 0.000 Nucleated RBC % (auto) 0.0 VBG pH VBG pCO2 VBG pO2 VBG HCO3 VBG O2 Saturation VBG Base Excess Anion Gap 16 Estim Creat Clear Calc 40.7 Estimated GFR 41 Random Glucose 129 H Lactic Acid 1.7 Calcium 9.2 Magnesium 1.7 Total Bilirubin 1.7 H AST 126 H ALT 37 Alkaline Phosphatase 179 H Ammonia B-Natriuretic Peptide 609 H Total Protein 6.9 Albumin 3.9 Urine Color Yellow Urine Appearance Clear Urine pH 6.0 Ur Specific [place] >= 1.030 H Urine Protein 100 (2+) H Urine Glucose (UA) Negative Urine Ketones Negative Urine Blood Moderate (2+) H Urine Nitrite Negative Ur Leukocyte Esterase Negative Urine RBC 0-2 Urine WBC 0-5 Ur Squamous Epith Cells 0-2 Urine Bacteria None Seen Hyaline Casts 0-2 COVID-19 (NETTE) Negative COVID-19 Clin Com See Note Influenza Type A (BETY) Negative Influenza Type B (BETY) Negative Influenza A & B Note See Note Ur L.pneumophila Ag 12/26/24 12/27/2412/27/25 20:49 05:01 09:38 MCV 90.5 MCH 30.1 MCHC 33.2 RDW 16.4 H Plt Count 119 L MPV 10.3 Immature Gran % (Auto) 0.8 H Neut % (Auto) 85.2 H Lymph % (Auto) 6.1 L [place] % (Auto) 6.9 Eos % (Auto) 0.7 Baso % (Auto) 0.3 Lymph # (Auto) 0.7 L [place] # (Auto) 0.8 Eos # (Auto) 0.1 Baso # (Auto) 0.0 Abs Immat Gran (auto) 0.10 H Absolute Neuts (auto) 10.3 H Absolute Nucleated RBC 0.000 Nucleated RBC % (auto) 0.0 VBG pH 7.42 VBG pCO2 32 VBG pO2 34 VBG HCO3 21 L VBG O2 Saturation 45.0 VBG Base Excess -1.9 Anion Gap 14 Estim Creat Clear Calc 48.7 Estimated GFR 50 Random Glucose 139 H Lactic Acid Calcium 8.5 D Magnesium Total Bilirubin 1.1 H AST 94 H ALT 31 Alkaline Phosphatase 148 H Ammonia 19 B-Natriuretic Peptide Total Protein 6.1 L Albumin 3.4 L Urine Color Urine Appearance Urine pH Ur Specific [place] Urine Protein Urine Glucose (UA) Urine Ketones Urine Blood Urine Nitrite Ur Leukocyte Esterase Urine RBC Urine WBC Ur Squamous Epith Cells Urine Bacteria Hyaline Casts COVID-19 (NETTE) COVID-19 Clin Com Influenza Type A (BETY) Influenza Type B (BETY) Influenza A & B Note Ur L.pneumophila Ag Cancelled Assessment and Plan (1) Pneumonia: Status: Acute Plan 79-year-old male with a past medical history of HTN, HLD, diabetes, paroxysmal AFib, aortic stenosis status post TAVR, TIA, duodenal ulcer, obesity, SVT, history of cardiac pacemaker,; presented to the hospital with a chief complaint of cough and shortness of breath. Noted to have sepsis in the setting of pneumonia. Pneumonia with sepsis Patient blood pressure on soft side. Received IV fluids. Also received hydrocortisone in the ER. Continue ceftriaxone and azithromycin, day 2 Stop maintenance IV fluids due to hx of CHF Follow-up cultures, urine Legionella, strep pneumo, rapid strep test, throat culture Will also check full respiratory panel HFpEF Concern for fluid overload BNP elevated; CXR showing pulmonary edema BP on soft side; will hold diuresing for now Resume home Lasix tomorrow Paroxysmal AFib: Continue home Xarelto Diabetes: Insulin sliding scale Peptic ulcer disease: Ppi Hyponatremia, mild Pt received IVF Follow labs Hypertension: Hold home metoprolol. Hold home Lasix. CKD: Patient's creatinine stabilized around 1.51.6 lately. Will monitor Elevated T bili: Will obtain right upper quadrant ultrasound DVT prophylaxis: Patient on Xarelto Code status: Full code Quality Stroke Does the patient have a stroke diagnosis?: No VTE Prior VTE?: No VTE Risk Level:: Medical - moderate - high VTE Device Contraindication: Treatment Not Indicated VTE Drug Contraindication: N/A - Med Ordered
[2024-12-27 16:28] LABS: Glucose, Whole Blood 143 mg/dL (60-115)
[2024-12-27] MEDS: 0.9 % Sodium Chloride Flush 3 ML SYRINGE IVFLUSH ×2 (16:51→20:05)
[2024-12-27 21:06] LABS: Glucose, Whole Blood 148 mg/dL (60-115)
[2024-12-28] VITALS (10 sets, daily range): BP systolic 94–131; BP diastolic 52–65; PULSE 76–124; RESP 17–20; TEMP 36.6–38.2; O2SAT 92–96
[2024-12-28 07:44] LABS: Hematocrit 31.1 % (42.0-52.0); Hemoglobin 10.6 g/dl (14.0-18.0); Mean Corpuscular HGB Conc 34.1 g/dl (31.0-36.0); Mean Corpuscular Hemoglobin 29.7 pg (27.0-33.0); Mean Corpuscular Volume 87.1 fL (80.0-98.0); NRBC Abs Auto 0.000 X10*3/uL (0.0-0.012); NRBC Pct Auto 0.0 /100WBC (0.0-0.2); Platelet Count 184 X10*3/uL (160-400); Red Blood Count 3.57 X10*6/uL (4.60-5.80); White Blood Count 18.3 X10*3/uL (4.8-10.8)
[2024-12-28 07:53] LABS: Anion Gap 14 (12-20); Blood Urea Nitrogen 31 mg/dL (9-16); Calcium 8.6 mg/dL (8.4-10.2); Carbon Dioxide 21 mmol/L (22-29); Chloride 106 mmol/L (96-108); Creatinine Clr Calc Pharmacy 64.2; Estimated Glomerular Filt Rate > 60; Potassium 3.5 mmol/L (3.3-5.1); Sodium 137 mmol/L (135-145)
[2024-12-28] MEDS: Metoprolol Succinate ER 50 MG TAB.ER.24H PO (07:54)
[2024-12-28] MEDS: Ferrous Sulfate 324 MG TABLET.DR PO (07:54)
[2024-12-28] MEDS: 0.9 % Sodium Chloride Flush 3 ML SYRINGE IVFLUSH ×3 (07:54→20:57)
[2024-12-28 08:00] LABS: B Type Natriuretic Peptide 712 pg/mL (<100)
--- NOTE | 2024-12-28 10:18 | HO.PM.IMPN ---
Subjective Subjective Date of Service: 12/28/24 Interval History: Reports feeling better, improved SOB Still on 2L NC, satting at 92% A few episodes of tachycardia into the 120s-130s Anxious, wants to go home Did not sleep well overnight Review of Systems Review of Systems: Yes all other systems are reviewed and are negative Physical Exam Exam: Exam: General: AOx3, no acute distress. Appears weak, fatigued Resp: CTA bilaterally CVS: Irregularly irregular rhythm, tachy GI: +BS, NT, no distention Skin: Warm, dry Neuro: Cranial nerves II-XII grossly intact bilaterally. Motor grossly intact bilaterally Extremities: No edema Psych: Mildly anxious Vital Signs: Vital Signs: Last Vital Signs Temp 98.0 F 12/28/24 08:55 Pulse 115 H 12/28/24 07:18 Resp 20 12/28/24 07:18 BP 104/65 12/28/24 07:18 Pulse Ox 93 12/28/24 07:18 O2 Del Method Nasal Cannula 12/28/24 07:18 O2 Flow Rate 2 12/28/24 07:18 Oxygen Flow Rate 6 12/26/24 20:21 BMI result Body Mass Index 29.6 Objective Data Active Medications Acetaminophen (Acetaminophen 325 Mg Tablet) 650 mg PO Q6H PRN PRN Reason: Pain, Mild 1-3,fever,headache Last Admin: 12/28/24 07:55 Dose: 650 mg Documented By: SANDIP Albuterol Sulfate (Albuterol Sulfate 90 Mcg 8 Gm Inhaler) 1 puff INHALE QID PRN PRN Reason: shortness of breath or wheezing Albuterol/Ipratropium (Albuterol/Iprat 2.5/0.5mg 3 Ml Ampul.Neb) 3 ml INHALE RQ4H WHILE AWAKE PRN PRN Reason: Shortness of Breath Atorvastatin Calcium (Atorvastatin Calcium 40 Mg Tablet) 40 mg PO BEDTIME [facility] Last Admin: 12/27/24 20:04 Dose: 40 mg Documented By: ATNONIETA Azithromycin (Azithromycin 500 Mg Tablet) 500 mg PO Q24H KIET Last Admin: 12/27/24 20:04 Dose: 500 mg Documented By: ANTONIETA Benzocaine (Throat Lozenge, Medicated Lozenge) 1 lozenge MUCOUS MEM Q2H PRN PRN Reason: Sore Throat Calcium Carbonate (Calcium Carbonate 750 Mg Tab.Chew) 750 mg PO Q4H PRN PRN Reason: Heartburn Ceftriaxone Sodium (Ceftriaxone Sodium 1 Gm Vial) 1 gm IVPUSH Q24H [facility] Last Admin: 12/27/24 20:04 Dose: 1 gm Documented By: ANTONIETA Ferrous Sulfate (Ferrous Sulfate 324 Mg Tablet.) 324 mg PO DAILY [facility] Last Admin: 12/28/24 07:54 Dose: 324 mg Documented By: SANDIP Furosemide (Furosemide 20 Mg Tablet) 20 mg PO DAILY [facility]; Protocol Last Admin: 12/28/24 07:54 Dose: 20 mg Documented By: SANDIP Gabapentin (Gabapentin 300 Mg Capsule) 300 mg PO BID [facility] Last Admin: 12/28/24 07:54 Dose: 300 mg Documented By: SANDIP Magnesium Hydroxide (Milk Of Magnesia 30 Ml Oral.Susp) 30 ml PO DAILY PRN PRN Reason: Constipation Melatonin (Melatonin 3 Mg Tablet) 6 mg PO BEDTIME PRN PRN Reason: Insomnia Metoprolol Succinate (Metoprolol Succinate Er 50 Mg Tab.Er.24h) 50 mg PO DAILY [facility]; Protocol Last Admin: 12/28/24 07:54 Dose: 50 mg Documented By: SANDIP Metoprolol Tartrate (Metoprolol Tartrate 5 Mg/5 Ml Vial) 5 mg IVPUSH Q6H PRN; Protocol PRN Reason: Heart Rate >100 Last Admin: 12/28/24 05:34 Dose: 5 mg Documented By: ANTONIETA Non-Formulary Medication (Cyclosporine) 1 drop EYE-BOTH BID [facility] Non-Formulary Medication (Lifitegrast [Xiidra]) 1 drop EYE-BOTH BID [facility] Omeprazole (Omeprazole 20 Mg Capsule.) 20 mg PO BID@0630,1630 [facility] Last Admin: 12/28/24 05:34 Dose: 20 mg Documented By: ANTONIETA Rivaroxaban (Rivaroxaban 20 Mg Tablet) 20 mg PO DAILY@1700 [facility] Last Admin: 12/27/24 16:51 Dose: 20 mg Documented By: FORTINO Sitagliptin Phosphate (Sitagliptin Phosphate 100 Mg Tablet) 100 mg PO DAILY [facility] Last Admin: 12/28/24 07:53 Dose: 100 mg Documented By: SANDIP Sodium Chloride (0.9 % Sodium Chloride Flush 3 Ml Syringe) 3 ml IVFLUSH QSHIFT [facility] Last Admin: 12/28/24 07:54 Dose: 3 ml Documented By: SANDIP Tramadol HCl (Tramadol Hcl 50 Mg Tablet) 50 mg PO DAILY PRN PRN Reason: Pain, Moderate(Pain Scale 4-6) Vitamin D (Cholecalciferol (Vitamin D3) 25 Mcg Tablet) 25 mcg PO DAILY [facility] Last Admin: 12/28/24 07:54 Dose: 25 mcg Documented By: SANDIP Labs 12/28/24 06:45 12/28/24 06:45 Labs: Laboratory Results - last 24 hr 12/27/24 12/27/24 12/28/24 16:22 20:41 06:45 MCV 87.1 MCH 29.7 MCHC 34.1 RDW 16.6 H Plt Count 184 D MPV 9.9 Absolute Nucleated RBC 0.000 Nucleated RBC % (auto) 0.0 Anion Gap 14 Estim Creat Clear Calc 64.2 Estimated GFR > 60 POC Glucose 143 H 148 H Random Glucose 133 H Calcium 8.6 B-Natriuretic Peptide 712 H Microbiology Microbiology Results: Microbiology 12/26/24 20:40 Blood Culture - Preliminary Blood - Venous No growth after 24 hours. 12/26/24 20:40 Blood Culture - Preliminary Blood - Venous No growth after 24 hours. Assessment and Plan (1) Pneumonia: Status: Acute (2) Acute hypoxic respiratory failure: Status: Acute Plan 79-year-old male with a past medical history of HTN, HLD, diabetes, paroxysmal AFib, aortic stenosis status post TAVR, TIA, duodenal ulcer, obesity, SVT, history of cardiac pacemaker,; presented to the hospital with a chief complaint of cough and shortness of breath. Noted to have sepsis in the setting of pneumonia. Acute hypoxic respiratory failure in the setting of pneumonia with sepsis Patient blood pressure on soft side. Received IV fluids. Also received hydrocortisone in the ER. Continue ceftriaxone and azithromycin, day 3 Stopped maintenance IV fluids due to hx of CHF Rapid strep negative Follow-up cultures, urine Legionella, strep pneumo, throat culture Check full respiratory panel Titrate supplemental O2>92, wean as tolerated DALE Creatinine 1.64 at time of presentation, improved today to 1.04 after IVF Monitor creatinine Mild Hyponatremia, resolved Pt received IVF Follow labs Elevated T bili RUQ ultrasound showed hepatomegaly, otherwise unremarkable T bili and LFTs downtrending Continue to monitor HFpEF Concern for fluid overload BNP elevated; CXR showing pulmonary edema; however, creatinine improved after IVF BP on soft side; continue with home diuresing as BP allows Paroxysmal AFib Pt went into AFib shortly after being on the floor Has had episodes of HR in the 120-130s Metoprolol previously on hold due to soft BP Continue metoprolol, Xarelto Monitor on telemetry Diabetes: Insulin sliding scale Peptic ulcer disease: Ppi DVT prophylaxis: Patient on Xarelto Code status: Full code Pt requires continued hospitalization due to continuing treat with IV antibiotics, supplemental oxygen, and awaiting PT evaluation for safe disposition home. Quality Stroke Does the patient have a stroke diagnosis?: No VTE Prior VTE?: No VTE Risk Level:: Medical - moderate - high VTE Device Contraindication: Treatment Not Indicated VTE Drug Contraindication: N/A - Med Ordered
[2024-12-28 11:44] LABS: IDNOW Serial# 58CA691E; Strep A Nucleic Acid Negative (Negative)
--- NOTE | 2024-12-28 13:29 | MHC.CM.PN ---
EMR reviewed and per MD rounds, pt is not medically cleared for discharge due to management of HR control.
[2024-12-28 15:07] LABS: Chlamydia pneumoniae PCR Not Detected (Not Detect.); Coronavirus 229E PCR Not Detected (Not Detect.); Coronavirus HKU1 PCR Not Detected (Not Detect.); Coronavirus NL63 PCR Not Detected (Not Detect.); Coronavirus OC43 PCR Not Detected (Not Detect.); RSV PCR Not Detected (Not Detect.); Rhino/Enterovirus PCR Not Detected (Not Detect.)
[2024-12-28 15:16] LABS: Influenza A H1 PCR Not Detected (Not Detect.); Influenza A H1-2009 PCR Not Detected (Not Detect.); Influenza A H3 PCR Not Detected (Not Detect.); SARS-CoV-2 PCR Not Detected (Not Detect.)
[2024-12-28] MEDS: Albuterol/Iprat 2.5/0.5MG 3 ML AMPUL.NEB INHALE (23:10)
[2024-12-29] VITALS (23 sets, daily range): BP systolic 72–123; BP diastolic 42–79; PULSE 68–131; RESP 17–27; TEMP 36.6–38.1; O2SAT 91–98
[2024-12-29 08:22] LABS: Hematocrit 29.7 % (42.0-52.0); Hemoglobin 9.8 g/dl (14.0-18.0); Mean Corpuscular HGB Conc 33.0 g/dl (31.0-36.0); Mean Corpuscular Hemoglobin 29.3 pg (27.0-33.0); Mean Corpuscular Volume 88.7 fL (80.0-98.0); NRBC Abs Auto 0.000 X10*3/uL (0.0-0.012); NRBC Pct Auto 0.0 /100WBC (0.0-0.2); Platelet Count 176 X10*3/uL (160-400); Red Blood Count 3.35 X10*6/uL (4.60-5.80); White Blood Count 13.1 X10*3/uL (4.8-10.8)
[2024-12-29 08:34] LABS: Alanine Aminotransferase 34 U/L (0-40); Albumin Level 3.3 g/dL (3.5-5.0); Alkaline Phosphatase 178 U/L (39-117); Anion Gap 14 (12-20); Aspartate Amino Transferase 54 U/L (5-37); Blood Urea Nitrogen 26 mg/dL (9-16); Calcium 8.8 mg/dL (8.4-10.2); Carbon Dioxide 23 mmol/L (22-29); Chloride 106 mmol/L (96-108); Creatinine Clr Calc Pharmacy 62.4; Estimated Glomerular Filt Rate > 60; Potassium 4.2 mmol/L (3.3-5.1); Sodium 139 mmol/L (135-145); Total Protein 6.2 g/dL (6.5-8.0)
[2024-12-29] MEDS: Ferrous Sulfate 324 MG TABLET.DR PO (09:21)
[2024-12-29] MEDS: 0.9 % Sodium Chloride Flush 3 ML SYRINGE IVFLUSH ×3 (09:21→21:22)
[2024-12-29] MEDS: Metoprolol Succinate ER 50 MG TAB.ER.24H PO (09:21)
[2024-12-29] MEDS: Albuterol/Iprat 2.5/0.5MG 3 ML AMPUL.NEB INHALE ×2 (10:37→16:45)
[2024-12-29] MEDS: Furosemide 20 MG/2 ML VIAL IVPUSH ×2 (12:42→21:21)
--- NOTE | 2024-12-29 15:20 | P.PNIM_ITS ---
Subjective Subjective Date of Service: 12/29/24 Interval History: Continues to feel anxious to go home to take care of his Reports breathing OK, cough better Has walked up and down hallway yesterday Seen by PT who recommended STR but pt declines and would like home with services Still on supplemental O2 Cardiac monitoring noted brief run of likely SVT at 13:44; pt sleeping and asymptomatic Review of Systems Review of Systems: Yes all other systems are reviewed and are negative Physical Exam 2 Exam: Exam: General: AOx3, no acute distress. Continues to look weak, fatigued Resp: Mild diffuse crackles CVS: A1, S2, RRR GI: +BS, NT, no distention Skin: Warm, dry Neuro: Cranial nerves II-XII grossly intact bilaterally. Motor grossly intact bilaterally Extremities: No edema Psych: Mildly anxious Vital Signs: Vital Signs: Last Vital Signs Temp 99.1 F 12/29/24 11:37 Pulse 81 12/29/24 11:37 Resp 20 12/29/24 11:37 BP 123/79 12/29/24 11:37 Pulse Ox 95 12/29/24 11:37 O2 Del Method Nasal Cannula 12/29/24 11:37 O2 Flow Rate 2 12/29/24 11:37 Oxygen Flow Rate 6 12/26/24 20:21 BMI result Body Mass Index 29.6 Objective Data Active Medications Acetaminophen (Acetaminophen 325 Mg Tablet) 650 mg PO Q6H PRN PRN Reason: Pain, Mild 1-3,fever,headache Last Admin: 12/28/24 20:02 Dose: 650 mg Documented By: BEVERLY Albuterol Sulfate (Albuterol Sulfate 90 Mcg 8 Gm Inhaler) 1 puff INHALE QID PRN PRN Reason: shortness of breath or wheezing Albuterol/Ipratropium (Albuterol/Iprat 2.5/0.5mg 3 Ml Ampul.Neb) 3 ml INHALE RQ4H WHILE AWAKE PRN PRN Reason: Shortness of Breath Last Admin: 12/29/24 10:37 Dose: 3 ml Documented By: JARETT Atorvastatin Calcium (Atorvastatin Calcium 40 Mg Tablet) 40 mg PO BEDTIME KIET Last Admin: 12/28/24 20:56 Dose: 40 mg Documented By: BEVERLY Azithromycin (Azithromycin 500 Mg Tablet) 500 mg PO Q24H KIET Last Admin: 12/28/24 20:56 Dose: 500 mg Documented By: BEVERLY Benzocaine (Throat Lozenge, Medicated Lozenge) 1 lozenge MUCOUS MEM Q2H PRN PRN Reason: Sore Throat Calcium Carbonate (Calcium Carbonate 750 Mg Tab.Chew) 750 mg PO Q4H PRN PRN Reason: Heartburn Ceftriaxone Sodium (Ceftriaxone Sodium 1 Gm Vial) 1 gm IVPUSH Q24H [facility] Last Admin: 12/28/24 20:56 Dose: 1 gm Documented By: BEVERLY Ferrous Sulfate (Ferrous Sulfate 324 Mg Tablet.) 324 mg PO DAILY [facility] Last Admin: 12/29/24 09:21 Dose: 324 mg Documented By: DAVIS Furosemide (Furosemide 20 Mg Tablet) 20 mg PO DAILY [facility]; Protocol Last Admin: 12/29/24 09:22 Dose: 20 mg Documented By: DAVIS Gabapentin (Gabapentin 300 Mg Capsule) 300 mg PO BID [facility] Last Admin: 12/29/24 09:22 Dose: 300 mg Documented By: DAVIS Magnesium Hydroxide (Milk Of Magnesia 30 Ml Oral.Susp) 30 ml PO DAILY PRN PRN Reason: Constipation Melatonin (Melatonin 3 Mg Tablet) 6 mg PO BEDTIME PRN PRN Reason: Insomnia Last Admin: 12/28/24 21:05 Dose: 6 mg Documented By: BEVERLY Metoprolol Succinate (Metoprolol Succinate Er 50 Mg Tab.Er.24h) 50 mg PO DAILY [facility]; Protocol Last Admin: 12/29/24 09:21 Dose: 50 mg Documented By: DAVIS Metoprolol Tartrate (Metoprolol Tartrate 5 Mg/5 Ml Vial) 5 mg IVPUSH Q6H PRN; Protocol PRN Reason: Heart Rate >100 Last Admin: 12/28/24 05:34 Dose: 5 mg Documented By: HANY-DESSK Non-Formulary Medication (Cyclosporine) 1 drop EYE-BOTH BID [facility] Non-Formulary Medication (Lifitegrast [Xiidra]) 1 drop EYE-BOTH BID [facility] Omeprazole (Omeprazole 20 Mg Capsule.) 20 mg PO BID@0630,1630 [facility] Last Admin: 12/29/24 06:26 Dose: 20 mg Documented By: BEVERLY Rivaroxaban (Rivaroxaban 20 Mg Tablet) 20 mg PO DAILY@1700 [facility] Last Admin: 12/28/24 16:41 Dose: 20 mg Documented By: SANDIP Sitagliptin Phosphate (Sitagliptin Phosphate 100 Mg Tablet) 100 mg PO DAILY [facility] Last Admin: 12/29/24 09:21 Dose: 100 mg Documented By: DAVIS Sodium Chloride (0.9 % Sodium Chloride Flush 3 Ml Syringe) 3 ml IVFLUSH QSHIFT [facility] Last Admin: 12/29/24 09:21 Dose: 3 ml Documented By: DAVIS Tramadol HCl (Tramadol Hcl 50 Mg Tablet) 50 mg PO DAILY PRN PRN Reason: Pain, Moderate(Pain Scale 4-6) Last Admin: 12/28/24 21:05 Dose: 50 mg Documented By: BEVERLY Vitamin D (Cholecalciferol (Vitamin D3) 25 Mcg Tablet) 25 mcg PO DAILY [facility] Last Admin: 12/29/24 09:22 Dose: 25 mcg Documented By: DAVIS Labs 12/29/24 07:19 12/29/24 07:19 Labs: Laboratory Results - last 24 hr 12/29/24 07:19 MCV 88.7 MCH 29.3 MCHC 33.0 RDW 16.6 H Plt Count 176 MPV 9.7 Absolute Nucleated RBC 0.000 Nucleated RBC % (auto) 0.0 Anion Gap 14 Estim Creat Clear Calc 62.4 Estimated GFR > 60 Random Glucose 134 H Calcium 8.8 Total Bilirubin 0.9 AST 54 H ALT 34 Alkaline Phosphatase 178 H Total Protein 6.2 L Albumin 3.3 L Hold Yellow Top See Note Microbiology Microbiology Results: Microbiology 12/26/24 20:40 Blood Culture - Preliminary Blood - Venous No growth after 48 hours. 12/26/24 20:40 Blood Culture - Preliminary Blood - Venous No growth after 48 hours. Assessment and Plan (1) Acute hypoxic respiratory failure: Status: Acute (2) Pneumonia: Status: Acute Plan 79-year-old male with a past medical history of HTN, HLD, diabetes, paroxysmal AFib, aortic stenosis status post TAVR, TIA, duodenal ulcer, obesity, SVT, history of cardiac pacemaker,; presented to the hospital with a chief complaint of cough and shortness of breath. Noted to have sepsis in the setting of pneumonia. Acute hypoxic respiratory failure in the setting of pneumonia with sepsis Patient blood pressure on soft side. Received IV fluids. Also received hydrocortisone in the ER. Continue ceftriaxone and azithromycin, day 4 Stopped maintenance IV fluids due to hx of CHF Rapid strep and respiraotry panel negative Follow-up cultures, urine Legionella, strep pneumo, throat culture Still on 2L O2; titrate supplemental O2>92, wean as tolerated SVT Noted to have a brief run of SVT into the 160s Pt asymptomatic Cardiology consult [facility], resolved Creatinine 1.64 at time of presentation, improved today to 1.04 after IVF Monitor creatinine Mild Hyponatremia, resolved Pt received IVF Follow labs Elevated T bili RUQ ultrasound showed hepatomegaly, otherwise unremarkable T bili and LFTs downtrending Continue to monitor HFpEF Concern for fluid overload BNP elevated; CXR showing pulmonary edema; however, creatinine improved after IVF Repeat CXR showing mild pulmonary edema and bilateral pleural effusions BP OK, will give Lasix 20mg IV x1 Continue with home diuresing as BP allows Paroxysmal AFib Pt went into AFib shortly after being on the floor Has had episodes of HR in the 120-130s Metoprolol previously on hold due to soft BP Continue metoprolol, Xarelto Monitor on telemetry Diabetes: Insulin sliding scale Peptic ulcer disease: Ppi DVT prophylaxis: Patient on Xarelto Code status: Full code Pt requires continued hospitalization due to continuing treat with IV antibiotics, supplemental oxygen, and awaiting PT evaluation for safe disposition home. Quality Stroke Does the patient have a stroke diagnosis?: No VTE Prior VTE?: No VTE Risk Level:: Medical - moderate - high VTE Device Contraindication: Treatment Not Indicated VTE Drug Contraindication: N/A - Med Ordered
--- NOTE | 2024-12-29 15:45 | ECG_ITS ---
Test Reason : cp Blood Pressure : */* mmHG Vent. Rate : 90 BPM Atrial Rate : 90 BPM P-R Int : 204 ms QRS Dur : 120 ms QT Int : 372 ms P-R-T Axes : 15 26 0 degrees QTcB Int : 455 ms Normal sinus rhythm with sinus arrhythmia Low voltage QRS Right bundle branch block Abnormal ECG When compared with ECG of 26-Dec-2024 20:48, Premature atrial complexes are no longer Present Referred By: Rodo Mcknight Electronically Signed By: KATHRINE MARTIN
[2024-12-29 16:48] LABS: Troponin-I High Sensitivity 7.4 ng/L (<3.5-35.0)
--- NOTE | 2024-12-29 18:12 | PC.NURSE ---
Patient while sleeping asymptomatic had a run of SVT 160's provider notified reviewed tele assessment no order was needed at that time due to patient returning to sinus rhythm. at 1545 notified PA that heart rate was back in the 115-153 sustaining afib rvr. EKG obtain and provider reviewed at bedside provider ordered metoprolol IV push.Medication given but heart rate remained the same, provider notified order to state cardizem drip per protocol to state at 5mg/hr and to monitor bp's closely and to increase by 2.5mg.Once change was made patient bp drop to 93/46 provider notified advised to decrease to 5mg/hr. Upon rechecking bp it was 86/49 so infusion was stopped per provider order. Will continue to monitor patient closely on tele and blood pressure.
[2024-12-29] MEDS: Albumin Human 25 % 100 ML IV (18:51)
[2024-12-29] MEDS: Albumin Human 25 % 50 ML 100 ML IV (20:28)
--- NOTE | 2024-12-29 21:29 | PC.NURSE ---
dr Acosta notified about pt condition: low MAP and low BP, pt transfered to ICU at 2049.
[2024-12-30] VITALS (26 sets, daily range): BP systolic 92–125; BP diastolic 42–72; PULSE 86–126; RESP 15–25; TEMP 36.4–38.1; O2SAT 90–96; BMI 30.4
[2024-12-30] MEDS: Albumin Human 25 % 100 ML IV
[2024-12-30] MEDS: Albuterol/Iprat 2.5/0.5MG 3 ML AMPUL.NEB INHALE (00:08)
--- NOTE | 2024-12-30 05:19 | PC.NURSE ---
pt arrived to ICU via bed from tele 2100. A&O x3, no c/o pain at this time. bp stable at this time. crackles in all lung chiang new order per [employer] 20mg IV Lasix with good effect 900ml urine output. pt remains in AFIB HR stable. repo q2 for comfort. plan of care continues
[2024-12-30 05:30] LABS: Hematocrit 28.8 % (42.0-52.0); Hemoglobin 9.7 g/dl (14.0-18.0); Mean Corpuscular HGB Conc 33.7 g/dl (31.0-36.0); Mean Corpuscular Hemoglobin 29.3 pg (27.0-33.0); Mean Corpuscular Volume 87.0 fL (80.0-98.0); NRBC Abs Auto 0.000 X10*3/uL (0.0-0.012); NRBC Pct Auto 0.0 /100WBC (0.0-0.2); Platelet Count 183 X10*3/uL (160-400); Red Blood Count 3.31 X10*6/uL (4.60-5.80); White Blood Count 12.8 X10*3/uL (4.8-10.8)
[2024-12-30 05:44] LABS: Albumin Level 3.6 g/dL (3.5-5.0); Anion Gap 17 (12-20); Blood Urea Nitrogen 22 mg/dL (9-16); Calcium 8.5 mg/dL (8.4-10.2); Carbon Dioxide 22 mmol/L (22-29); Chloride 101 mmol/L (96-108); Creatinine Clr Calc Pharmacy 66.7; Estimated Glomerular Filt Rate > 60; Magnesium 1.6 mg/dL (1.6-2.6); Potassium 3.5 mmol/L (3.3-5.1); Sodium 136 mmol/L (135-145)
[2024-12-30 05:50] LABS: B Type Natriuretic Peptide 1017 pg/mL (<100)
[2024-12-30] MEDS: Furosemide 20 MG/2 ML VIAL IVPUSH (06:20)
--- NOTE | 2024-12-30 06:54 | PC.NURSE ---
Late entry for 12/29/24 1820- Cardizem drip stopped and discontinued at 1820 as per BALWINDER Tirado order as pt hypotensive at 86/49.
--- NOTE | 2024-12-30 07:28 | PC.NURSE ---
Correction to previous late entry note. Cardizem drip was stopped and discontinued at 1810 on 12/29/24 as per BALWINDER Benitez order due to hypotension.
--- NOTE | 2024-12-30 08:56 | P.PNCC_ITS ---
Subjective Subjective Date of Service: 12/30/24 Interval History: admitted 12/29 PM d/t hypotension in setting of diltiazem gtt for atrial fibrillation w/ RVR Critical Care Time (minutes): 60 Physical Exam 2 Vital Signs: Vital Signs: Last Vital Signs Temp 97.5 F 12/30/24 08:00 Pulse 97 12/30/24 08:00 Resp 18 12/30/24 08:00 BP 119/48 L 12/30/24 08:00 Pulse Ox 95 12/30/24 08:00 O2 Del Method Nasal Cannula 12/30/24 08:00 O2 Flow Rate 3 12/30/24 08:00 Oxygen Flow Rate 6 12/26/24 20:21 BMI result Body Mass Index 30.4 Const: General: cooperative, healthy appearing, comfortable, no acute distress, well developed, alert, awake and Physically active O rientation/consciousness: patient oriented x3 HEENT: Head: Yes normal to inspection, Yes normocephalic and Yes atraumatic Eyes: General: appearance normal, both eyes and all related structures Neck: Neck: Yes normal visual inspection, Yes full ROM, Yes trachea midline and Yes supple Chest: Chest palpation & inspection: normal inspection of the chest Resp: Other: no appreciable overt rales, rhonchi, wheezing Effort & Inspection: normal respiratory effort Cardio: Rate: tachycardic Rhythm: abnormal rhythm GI: Inspection: Yes normal to inspection, No Abdominal wall edema and No distended Palpation (GI): Soft to palpation, not firm, nontender, no guarding and not rigid Skin: General skin exam: no rashes or lesions noted Neuro: General: patient oriented x3, tone normal, moves all extremities and no focal motor deficits Extrem: Other: appreciable 1+ pitting edema to bilateral shins General: Yes normal to inspection, Yes full ROM and Yes capillary refill normal Psych: Appearance: grossly normal Objective Data Labs 12/30/24 05:17 12/30/24 05:17 Labs: Laboratory Results - last 24 hr 12/29/24 12/30/24 12/30/24 16:11 05:16 05:17 WBC 12.8 H RBC 3.31 L Hgb 9.7 L Hct 28.8 L MCV 87.0 MCH 29.3 MCHC 33.7 RDW 16.0 Plt Count 183 MPV 9.5 Absolute Nucleated RBC 0.000 Nucleated RBC % (auto) 0.0 Sodium 136 Potassium 3.5 Chloride 101 Carbon Dioxide 22 Anion Gap 17 BUN 22 H Creatinine 1.00 Estim Creat Clear Calc 66.7 Estimated GFR > 60 Random Glucose 133 H Calcium 8.5 Phosphorus 2.5 L Magnesium 1.6 Troponin I High Sens 7.4 D B-Natriuretic Peptide 1017 H Albumin 3.6 Microbiology Microbiology Results: Microbiology 12/26/24 20:40 Blood - Venous Blood Culture - Preliminary No growth after 48 hours. 12/26/24 20:40 Blood - Venous Blood Culture - Preliminary No growth after 48 hours. Progress Note: A&P Assessment and plan (1) Acute hypoxic respiratory failure: Status: Acute (2) CHF (congestive heart failure): Status: Acute Plan Patient is a 79 Y M w/ hypertension, hyperlipidemia, diabetes mellitus, c/b CHF, paroxysmal atrial fibrillation, s/p pacemaker, and aortic stenosis s/p TAVR, presenting to ED on 12/26 w/ dyspnea, thought to be d/t pneumonia and/or CHF, admitted medicine; on 12/29 PM, patient developed atrial fibrillation w/ RVR, started on diltiazem gtt, developed hypotension, prompting ICU admission N: no acute issues CV: c/f CHF exacerbation; atrial fibrillation w/ RVR, improved; mild hypotension, to closely monitor, norepinephrine gtt as needed R: acute hypoxic respiratory failure, likely d/t CHF exacerbation, possibly pneumonia, NC, wean as toleratd GI: diabetic diet : acute renal insufficiency, to monitor renal indices H: paroxysmal atrial fibrillation, on home rivaroxaban ID: possible pneumonia, ceftriaxone/azithromycin E: diabetes mellitus, insulin sliding scale P: no acute issues S: daily updates given to Quality Stroke Does the patient have a stroke diagnosis?: No VTE Prior VTE?: No VTE Risk Level:: Medical - moderate - high VTE Device Contraindication: Treatment Not Indicated VTE Drug Contraindication: N/A - Med Ordered
[2024-12-30] MEDS: Potassium Phosphate/NS 15 MMOL/250 ML PLAST..BAG 62.5 MMOL IV ×2 (09:40→14:01)
[2024-12-30] MEDS: 0.9 % Sodium Chloride Flush 3 ML SYRINGE IVFLUSH ×2 (09:48→15:55)
[2024-12-30 10:40] LABS: Glucose, Whole Blood 143 mg/dL (60-115)
[2024-12-30 16:31] LABS: Glucose, Whole Blood 156 mg/dL (60-115)
--- NOTE | 2024-12-30 17:37 | PC.NURSE ---
Assumed care of pt at 1500. Pt is A&OX3. Denies pain. Has weakness but able to turn side to side with 1 assist. Temp 100.6 orally/came down to 98.9 after tylenol. BP stable. Monitor shows Afib, 110'2-130's. O2 on at 3L via NC. O2 sat 93-94%. No acute resp distress. Appetite fair. Taking fluids well. External cath on with approx 300ml since 1500.
[2024-12-30 18:18] LABS: Anion Gap 17 (12-20); Blood Urea Nitrogen 22 mg/dL (9-16); Calcium 8.5 mg/dL (8.4-10.2); Carbon Dioxide 22 mmol/L (22-29); Chloride 101 mmol/L (96-108); Creatinine Clr Calc Pharmacy 64.3; Estimated Glomerular Filt Rate > 60; Magnesium 1.6 mg/dL (1.6-2.6); Potassium 3.8 mmol/L (3.3-5.1); Sodium 136 mmol/L (135-145)
[2024-12-30 20:37] LABS: Glucose, Whole Blood 145 mg/dL (60-115)
[2024-12-30] MEDS: Throat Lozenge, Medicated LOZENGE 1 LOZENGE MUCOUS MEM (22:08)
[2024-12-31] VITALS (17 sets, daily range): BP systolic 97–150; BP diastolic 45–67; PULSE 80–118; RESP 12–22; TEMP 36.7–37.8; O2SAT 90–97
[2024-12-31] MEDS: 0.9 % Sodium Chloride Flush 3 ML SYRINGE IVFLUSH ×4 (00:50→21:23)
[2024-12-31 04:30] LABS: MANUAL DIFF FLAG NO
[2024-12-31 04:33] LABS: Hematocrit 30.4 % (42.0-52.0); Hemoglobin 10.4 g/dl (14.0-18.0); Imm Gran Abs Auto 0.12 X10*3/uL (0.00-0.03); Imm Gran Pct Auto 0.8 % (0.0-0.4); Lymphocytes Absolute Auto 1.5 X10*3/uL (1.2-4.9); Mean Corpuscular HGB Conc 34.2 g/dl (31.0-36.0); Mean Corpuscular Hemoglobin 29.5 pg (27.0-33.0); Mean Corpuscular Volume 86.1 fL (80.0-98.0); NRBC Abs Auto 0.000 X10*3/uL (0.0-0.012); NRBC Pct Auto 0.0 /100WBC (0.0-0.2); Platelet Count 206 X10*3/uL (160-400); Red Blood Count 3.53 X10*6/uL (4.60-5.80); White Blood Count 14.4 X10*3/uL (4.8-10.8)
[2024-12-31 04:57] LABS: Albumin Level 3.3 g/dL (3.5-5.0); Anion Gap 17 (12-20); Blood Urea Nitrogen 23 mg/dL (9-16); Calcium 8.7 mg/dL (8.4-10.2); Carbon Dioxide 23 mmol/L (22-29); Chloride 101 mmol/L (96-108); Creatinine Clr Calc Pharmacy 70.4; Estimated Glomerular Filt Rate > 60; Magnesium 1.5 mg/dL (1.6-2.6); Potassium 3.7 mmol/L (3.3-5.1); Sodium 137 mmol/L (135-145)
[2024-12-31 07:23] LABS: Glucose, Whole Blood 151 mg/dL (60-115)
[2024-12-31] MEDS: Furosemide 20 MG/2 ML VIAL IVPUSH (08:55)
[2024-12-31] MEDS: Albumin Human 25 % 50 ML 100 ML IV (10:17)
--- NOTE | 2024-12-31 10:34 | PC.NURSE ---
Assume care @ 0700 Neuro/Resp: Alert & Oriented,? 3L NC, Fine crackle BL lower. Cardiac: Sinus Rhythm on tele? GI/: LBM 12/31, + bowel sounds. Utilizing urinal?? Lines: Peripheral IV Plan Tx to Med Tele. Not requiring ICU level of care?
--- NOTE | 2024-12-31 10:54 | P.PNCC_ITS ---
Subjective Subjective Date of Service: 12/31/24 Interval History: 79-year-old gentleman with underlying hypertension, diabetes mellitus, congestive heart failure, paroxysmal AFib status post pacemaker, aortic stenosis status post TAVR admitted on 12/26/2024 with dyspnea deemed to be secondary to pneumonia and exacerbation of underlying congestive heart failure with hospital course further complicated AFib with rapid ventricular response and hypotension requiring transfer to intensive care unit. Patient diuresed his underlying beta blockade increased with resolution of rapid ventricular component and hypotension. No events overnight. Critical Care Time (minutes): 0 Physical Exam 2 Vital Signs: Vital Signs: Last Vital Signs Temp 98.1 F 12/31/24 10:00 Pulse 99 12/31/24 10:00 Resp 17 12/31/24 10:00 BP 124/58 L 12/31/24 10:00 Pulse Ox 91 L 12/31/24 10:00 O2 Del Method Nasal Cannula 12/31/24 10:00 O2 Flow Rate 3 12/31/24 10:00 Oxygen Flow Rate 6 12/26/24 20:21 BMI result Body Mass Index 30.4 Const: General: no acute distress, alert and awake Eyes: Sclerae: sclerae normal EOM: EOMs intact bilaterally Neck: Neck: Yes no lymphadenopathy, Yes trachea midline and Yes supple Resp: Effort & Inspection: normal respiratory effort and no respiratory distress Auscultation: clear to auscultation bilaterally Cardio: Rate: tachycardic Rhythm: regular rhythm Heart sounds: no gallops, no murmurs and no rubs GI: Palpation (GI): Soft to palpation and Other GI palpation findings present ( Nontender) Auscultation: normal bowel sounds Extrem: General: No clubbing, No cyanosis and Yes edema (Trace bilateral) Objective Data Labs 12/31/24 04:24 12/31/24 04:24 Labs: Laboratory Results - last 24 hr 12/27/24 12/30/24 12/30/24 09:38 16:27 17:46 WBC RBC Hgb Hct MCV MCH MCHC RDW Plt Count MPV Immature Gran % (Auto) Neut % (Auto) Lymph % (Auto) Swain % (Auto) Eos % (Auto) Baso % (Auto) Lymph # (Auto) Swain # (Auto) Eos # (Auto) Baso # (Auto) Abs Immat Gran (auto) Absolute Neuts (auto) Absolute Nucleated RBC Nucleated RBC % (auto) Sodium 136 Potassium 3.8 Chloride 101 Carbon Dioxide 22 Anion Gap 17 BUN 22 H Creatinine 1.05 Estim Creat Clear Calc 64.3 Estimated GFR > 60 POC Glucose 156 H Random Glucose 169 H Calcium 8.5 Phosphorus 3.4 Magnesium 1.6 Albumin Ur L.pneumophila Ag Not Detected 12/30/24 12/31/24 12/31/24 20:35 04:24 07:19 WBC 14.4 H RBC 3.53 L Hgb 10.4 L Hct 30.4 L MCV 86.1 MCH 29.5 MCHC 34.2 RDW 16.1 H Plt Count 206 MPV 9.0 L Immature Gran % (Auto) 0.8 H Neut % (Auto) 75.9 H Lymph % (Auto) 10.3 L Swain % (Auto) 10.4 Eos % (Auto) 2.4 Baso % (Auto) 0.2 Lymph # (Auto) 1.5 Swain # (Auto) 1.5 H Eos # (Auto) 0.3 Baso # (Auto) 0.0 Abs Immat Gran (auto) 0.12 H Absolute Neuts (auto) 11.0 H Absolute Nucleated RBC 0.000 Nucleated RBC % (auto) 0.0 Sodium 137 Potassium 3.7 Chloride 101 Carbon Dioxide 23 Anion Gap 17 BUN 23 H Creatinine 0.96 Estim Creat Clear Calc 70.4 Estimated GFR > 60 POC Glucose 145 H 151 H Random Glucose 141 H Calcium 8.7 Phosphorus 2.8 Magnesium 1.5 L Albumin 3.3 L Ur L.pneumophila Ag Microbiology Microbiology Results: Microbiology 12/26/24 20:40 Blood - Venous Blood Culture - Preliminary No growth after 48 hours. 12/26/24 20:40 Blood - Venous Blood Culture - Preliminary No growth after 48 hours. Progress Note: A&P Assessment and plan (1) CHF (congestive heart failure): Status: Acute (2) Cardiac pacemaker in situ: Status: Acute (3) Type 2 diabetes mellitus: Status: Acute (4) Atrial fibrillation with RVR: Status: Acute (5) Acute hypoxic respiratory failure: Status: Acute Plan Assessment: Plan: Neuro: No acute issues. Cardiac: Acute exacerbation of underlying chronic diastolic congestive heart failure, improved with diuresis. Underlying CAD and AFib, RVR component resolved. Continue beta-blockade and Xarelto. Pulmonary: Acute hypoxic respiratory failure secondary to exacerbation of underlying current diastolic congestive heart failure with likely community- acquired pneumonia component. Continue to titrate off supplemental oxygen as tolerated. Continue empiric antibiotics. Renal: No acute issues. Endo: No acute issues. Underlying diabetes mellitus. GI: No acute issues. ID: No acute issues Heme/Onc: No acute issues. Psych: No acute issues. Miscellaneous: No acute issues. Prophylaxis: Xarelto Diet: Diabetic Quality Stroke Does the patient have a stroke diagnosis?: No VTE Prior VTE?: No VTE Risk Level:: Medical - moderate - high VTE Device Contraindication: Treatment Not Indicated VTE Drug Contraindication: N/A - Med Ordered
[2024-12-31 11:31] LABS: Glucose, Whole Blood 146 mg/dL (60-115)
[2024-12-31] MEDS: Metoprolol Succinate ER 100 MG TAB.ER.24H PO (12:31)
--- NOTE | 2024-12-31 13:13 | PM.EVENT ---
Event Note Date of Service: 12/31/24 Event Note: Assumed care of this pt earlier in the day after being downgraded from ICU. Pt continues to complain of some SOB, nonproductive cough, and generally feeling fatigued. Overall pt appears generally weak. BP improved, and patient's HR in the 90-110 range. Patient's metoprolol has been increased to 100 mg ER daily. Agree with plan to continue IV antibiotics, breathing treatments, supplemental oxygen, and home Lasix. Time Spent With Patient Time: Total time managing care of this patient today ____ minutes.
[2024-12-31 15:36] LABS: Glucose, Whole Blood 165 mg/dL (60-115)
[2024-12-31 20:24] LABS: Glucose, Whole Blood 124 mg/dL (60-115)
[2024-12-31] MEDS: Artificial Tears 15 ML DROPS 2 DROP EYE-BOTH (23:26)
[2025-01-01 03:41] VITALS: BP 106/58; PULSE 73; RESP 16; TEMP 36.3; O2SAT 92
[2025-01-01 06:00] VITALS: BMI 29.7
[2025-01-01 07:31] VITALS: BP 131/63; PULSE 75; RESP 20; TEMP 36.2; O2SAT 95
[2025-01-01 07:48] LABS: Glucose, Whole Blood 122 mg/dL (60-115)
[2025-01-01 08:07] LABS: MANUAL DIFF FLAG NO
[2025-01-01 08:13] LABS: Hematocrit 32.2 % (42.0-52.0); Hemoglobin 10.9 g/dl (14.0-18.0); Imm Gran Abs Auto 0.16 X10*3/uL (0.00-0.03); Imm Gran Pct Auto 1.2 % (0.0-0.4); Lymphocytes Absolute Auto 1.7 X10*3/uL (1.2-4.9); Mean Corpuscular HGB Conc 33.9 g/dl (31.0-36.0); Mean Corpuscular Hemoglobin 29.5 pg (27.0-33.0); Mean Corpuscular Volume 87.3 fL (80.0-98.0); NRBC Abs Auto 0.000 X10*3/uL (0.0-0.012); NRBC Pct Auto 0.0 /100WBC (0.0-0.2); Platelet Count 253 X10*3/uL (160-400); Red Blood Count 3.69 X10*6/uL (4.60-5.80); White Blood Count 13.1 X10*3/uL (4.8-10.8)
[2025-01-01 08:34] LABS: Albumin Level 3.4 g/dL (3.5-5.0); Anion Gap 13 (12-20); Blood Urea Nitrogen 20 mg/dL (9-16); Calcium 9.0 mg/dL (8.4-10.2); Carbon Dioxide 27 mmol/L (22-29); Chloride 101 mmol/L (96-108); Creatinine Clr Calc Pharmacy 73.4; Estimated Glomerular Filt Rate > 60; Magnesium 1.9 mg/dL (1.6-2.6); Potassium 3.7 mmol/L (3.3-5.1); Sodium 137 mmol/L (135-145)
[2025-01-01] MEDS: 0.9 % Sodium Chloride Flush 3 ML SYRINGE IVFLUSH ×3 (09:09→21:08)
[2025-01-01] MEDS: Furosemide 20 MG/2 ML VIAL IVPUSH (09:10)
[2025-01-01] MEDS: Metoprolol Succinate ER 100 MG TAB.ER.24H PO (09:12)
[2025-01-01] MEDS: Artificial Tears 15 ML DROPS 2 DROP EYE-BOTH ×2 (10:57→21:09)
[2025-01-01 11:29] VITALS: BP 128/60; PULSE 82; RESP 20; TEMP 36.8; O2SAT 93
[2025-01-01 11:30] LABS: Glucose, Whole Blood 162 mg/dL (60-115)
--- NOTE | 2025-01-01 13:14 | HO.PM.IMPN ---
Subjective Subjective Date of Service: 01/01/25 Interval History: Sitting in chair during evaluation. On 2 L NC. Reports feeling better, however significantly fatigued. Reports that he is attempting to cough however has a lot of mucus and difficulty bringing up phlegm. Denies chest pain, dyspnea at rest. Endorses exertional dyspnea. Eating and drinking well. Stooling and urinating well. Review of Systems Review of Systems: Yes all other systems are reviewed and are negative Physical Exam Exam: Exam: General: A&O x3, oriented to time place person and situation, comfortable, no pain Cardiac: S1, S2 auscultated with no S3/4, no MRG. Well perfused. Respiratory: Generalized wheezing and crackles auscultated throughout lower lung zones and mid zones. Decreased breath sounds at the bases bilaterally. Wheezing predominantly in the upper and mid zones. No respiratory distress. GI/ : No abdominal pain on palpation, no masses or distentions. MSK: Normal ambulation without pain at bony prominences or musculature Neurological: Normal neurological examination on overview, without obvious CN II-XII abnormalities. Vital Signs: Vital Signs: Last Vital Signs Temp 98.3 F 01/01/25 11:29 Pulse 82 01/01/25 11:29 Resp 20 01/01/25 11:29 BP 128/60 01/01/25 11:29 Pulse Ox 93 01/01/25 11:29 O2 Del Method Nasal Cannula 01/01/25 11:29 O2 Flow Rate 2 01/01/25 11:29 Oxygen Flow Rate 2.5 12/31/24 16:15 BMI result Body Mass Index 29.7 Objective Data Active Medications Acetaminophen (Acetaminophen 325 Mg Tablet) 975 mg PO Q6H PRN PRN Reason: Pain, Mild 1-3,fever,headache Last Admin: 12/31/24 23:32 Dose: 975 mg Documented By: TONY Albuterol/Ipratropium (Albuterol/Iprat 2.5/0.5mg 3 Ml Ampul.Neb) 3 ml INHALE RQ4H WHILE AWAKE PRN PRN Reason: Shortness of Breath Last Admin: 12/30/24 00:08 Dose: 3 ml Documented By: BECCA Artificial Tears (Artificial Tears 15 Ml Drops) 2 drop EYE-BOTH Q4H PRN PRN Reason: Dry Eyes Last Admin: 01/01/25 10:57 Dose: 2 drop Documented By: JOSE ANGEL Atorvastatin Calcium (Atorvastatin Calcium 40 Mg Tablet) 40 mg PO BEDTIME [facility] Last Admin: 12/31/24 21:23 Dose: 40 mg Documented By: TONY Azithromycin (Azithromycin 500 Mg Tablet) 500 mg PO Q24H [facility] Last Admin: 12/31/24 21:23 Dose: 500 mg Documented By: TONY Benzocaine (Throat Lozenge, Medicated Lozenge) 1 lozenge MUCOUS MEM Q2H PRN PRN Reason: Sore Throat Last Admin: 12/30/24 22:08 Dose: 1 lozenge Documented By: RAMON Ceftriaxone Sodium (Ceftriaxone Sodium 1 Gm Vial) 1 gm IVPUSH Q24H [facility] Last Admin: 12/31/24 21:23 Dose: 1 gm Documented By: TONY Dextrose (Dextrose 50 % 25 Gm/50 Ml Syringe) 25 gm IVPUSH Q15M PRN; Protocol PRN Reason: per Hypoglycemia Standing Ord. Furosemide (Furosemide 20 Mg/2 Ml Vial) 20 mg IVPUSH DAILY [facility]; Protocol Last Admin: 01/01/25 09:10 Dose: 20 mg Documented By: ALEJANDRO Furosemide (Furosemide 40 Mg Tablet) 40 mg PO DAILY [facility]; Protocol Last Admin: 01/01/25 09:12 Dose: 40 mg Documented By: ALEJANDRO Gabapentin (Gabapentin 300 Mg Capsule) 300 mg PO BID [facility] Last Admin: 01/01/25 09:12 Dose: 300 mg Documented By: ALEJANDRO Glucose (Glucose Gel 15 Gm Gel..Gram.) 15 gm PO Q15M PRN; Protocol PRN Reason: per Hypoglycemia Standing Ord. Insulin Human Lispro (Insulin Lispro 100 Unit/Ml 3 Ml Vial) 0 unit SUBCUT QIDACHS [facility]; Protocol Last Admin: 01/01/25 12:18 Dose: 2 unit Documented By: ALEJANDRO Metoprolol Succinate (Metoprolol Succinate Er 100 Mg Tab.Er.24h) 100 mg PO DAILY [facility]; Protocol Last Admin: 01/01/25 09:12 Dose: 100 mg Documented By: ALEJANDRO Omeprazole (Omeprazole 20 Mg Capsule.Dr) 20 mg PO BID@0630,1630 [facility] Last Admin: 01/01/25 06:02 Dose: 20 mg Documented By: TONY Rivaroxaban (Rivaroxaban 20 Mg Tablet) 20 mg PO DAILY@1700 [facility] Last Admin: 12/31/24 15:59 Dose: 20 mg Documented By: SANDIP Sodium Chloride (0.9 % Sodium Chloride Flush 3 Ml Syringe) 3 ml IVFLUSH QSHIFT [facility] Last Admin: 01/01/25 09:09 Dose: 3 ml Documented By: ALEJANDRO Tramadol HCl (Tramadol Hcl 50 Mg Tablet) 50 mg PO Q8H PRN PRN Reason: Pain, Moderate(Pain Scale 4-6) Labs 01/01/25 07:55 01/01/25 07:55 Labs: Laboratory Results - last 24 hr 12/31/24 12/31/24 01/01/25 15:32 20:14 07:44 MCV MCH MCHC RDW Plt Count MPV Immature Gran % (Auto) Neut % (Auto) Lymph % (Auto) [place] % (Auto) Eos % (Auto) Baso % (Auto) Lymph # (Auto) [place] # (Auto) Eos # (Auto) Baso # (Auto) Abs Immat Gran (auto) Absolute Neuts (auto) Absolute Nucleated RBC Nucleated RBC % (auto) Anion Gap Estim Creat Clear Calc Estimated GFR POC Glucose 165 H 124 H 122 H Random Glucose Calcium Phosphorus Magnesium Albumin 01/01/25 01/01/25 07:55 11:26 MCV 87.3 MCH 29.5 MCHC 33.9 RDW 15.9 Plt Count 253 MPV 9.4 Immature Gran % (Auto) 1.2 H Neut % (Auto) 72.1 Lymph % (Auto) 13.0 L [place] % (Auto) 10.5 Eos % (Auto) 2.8 Baso % (Auto) 0.4 Lymph # (Auto) 1.7 [place] # (Auto) 1.4 H Eos # (Auto) 0.4 Baso # (Auto) 0.1 Abs Immat Gran (auto) 0.16 H Absolute Neuts (auto) 9.4 H Absolute Nucleated RBC 0.000 Nucleated RBC % (auto) 0.0 Anion Gap 13 Estim Creat Clear Calc 73.4 Estimated GFR > 60 POC Glucose 162 H Random Glucose 125 H Calcium 9.0 Phosphorus 2.9 Magnesium 1.9 Albumin 3.4 L Microbiology Microbiology Results: Microbiology 12/26/24 20:40 Blood Culture - Final Blood - Venous No growth after 5 days. 12/26/24 20:40 Blood Culture - Final Blood - Venous No growth after 5 days. Assessment and Plan (1) CHF (congestive heart failure): Status: Acute (2) Cardiac pacemaker in situ: Status: Acute (3) Atrial fibrillation with RVR: Status: Acute (4) Acute hypoxic respiratory failure: Status: Acute (5) Pneumonia: Status: Acute Plan 79-year-old male, with a history of HTN, type 2 diabetes mellitus, ischemic CHF status post PPM, aortic stenosis s/p TAVR, presented 12/26 with dyspnea, admitted with acute respiratory failure 2/2 pneumonia and CHF exacerbation, course c/b AFib RVR with hypotension s/p MICU transfer for acute hypoxic respiratory failure, transfer to medical floor (12/31). Multifactorial acute hypoxic respiratory failure Remains on 2 L NC PLAN - wean off nasal cannula as tolerated - consider repeat chest x-ray - trend BMP/BNP - consider DuoNebs Community-acquired pneumonia PLAN - continue azithromycin - continue ceftriaxone - guaifenesin - consider DuoNebs Acute CHF exacerbation CAD s/p CABG S/p PPM PLAN - continue rivaroxaban 20 mg OD p.o. - atorvastatin 40 mg OD p.o. - furosemide 40 mg p.o. daily - trend BMP/BNP - daily weights - intake/output q.6 hourly - cardiac telemetry AFib RVR PLAN - continue Xarelto 20 mg OD p.o. - continue metoprolol 100 mg OD p.o. - cardiac telemetry - treat underlying hypoxia, pneumonia and CHF exacerbation T2 DM - ISS - POC glucose - diabetic diet - gabapentin 300 mg b.i.d. p.o. GERD - omeprazole 20 mg b.i.d. p.o. QUALITY METRICS - VTE: Xarelto - CODE STATUS: Full code - DIET: Cardiac Total time managing care of this patient today: 35 minutes. Quality Stroke Does the patient have a stroke diagnosis?: No VTE Prior VTE?: No VTE Risk Level:: Medical - moderate - high VTE Device Contraindication: Treatment Not Indicated VTE Drug Contraindication: N/A - Med Ordered
--- NOTE | 2025-01-01 15:17 | MHC.CM.PN ---
CM received a call from Patient's Son/Sergey @ [phone]. Patient is his 's Caregiver and Sergey ultimately would like to get both his Parents closer to him in [place] in whatever LOC is appropriate after Patient completes STR. Sergey feels that Patient can no longer adequately care for his and mentioned the possibility of a private pay Respite stay at the facility that Patient goes to for STR. CM will continue to follow.
[2025-01-01 15:25] VITALS: BP 125/56; PULSE 90; RESP 20; TEMP 37.3; O2SAT 94
[2025-01-01 16:10] LABS: Glucose, Whole Blood 121 mg/dL (60-115)
[2025-01-01 18:34] LABS: Mycoplasma Pneumoniae - IgG <=0.90 (<=0.90); Mycoplasma Pneumoniae - IgM 223 U/mL (<770)
[2025-01-01 20:00] VITALS: BP 125/60; PULSE 96; RESP 16; TEMP 37.1; O2SAT 92
[2025-01-01 20:53] LABS: Glucose, Whole Blood 138 mg/dL (60-115)
[2025-01-01] MEDS: Throat Lozenge, Medicated LOZENGE 1 LOZENGE MUCOUS MEM (21:08)
[2025-01-02] VITALS (9 sets, daily range): BP systolic 103–133; BP diastolic 51–61; PULSE 76–103; RESP 12–20; TEMP 36.1–38.1; O2SAT 90–97; BMI 29.2
[2025-01-02 07:27] LABS: Glucose, Whole Blood 140 mg/dL (60-115)
[2025-01-02] MEDS: 0.9 % Sodium Chloride Flush 3 ML SYRINGE IVFLUSH ×3 (09:03→20:52)
[2025-01-02] MEDS: Metoprolol Succinate ER 100 MG TAB.ER.24H PO (09:04)
[2025-01-02] MEDS: Artificial Tears 15 ML DROPS 2 DROP EYE-BOTH ×3 (09:11→21:30)
--- NOTE | 2025-01-02 11:08 | MHC.CM.PN ---
Per ROUNDS discussion, Patient is not yet medically cleared for dc (weaning O2); PT is recommending STR and CM will continue to follow.
[2025-01-02 11:24] LABS: Glucose, Whole Blood 169 mg/dL (60-115)
--- NOTE | 2025-01-02 14:30 | P.PNIM_ITS ---
Subjective Subjective Date of Service: 01/02/25 Interval History: Patient reports persistent fatigue today. Endorses still having some difficulty with his breathing. Remains on 2 L NC saturating 98%. Patient was sitting up in chair. Otherwise, eating and drinking well, urinating and stooling well. Review of Systems Review of Systems: Yes all other systems are reviewed and are negative Physical Exam 2 Exam: Exam: General: A&O x3, oriented to time place person and situation, comfortable, no pain Cardiac: S1, S2 auscultated with no S3/4, no MRG. Well perfused. Respiratory: Generalized wheezing and crackles auscultated throughout lower lung zones and mid zones. Decreased breath sounds at the bases bilaterally. Wheezing predominantly in the upper and mid zones. No respiratory distress. GI/ : No abdominal pain on palpation, no masses or distentions. MSK: Normal ambulation without pain at bony prominences or musculature Neurological: Normal neurological examination on overview, without obvious CN II-XII abnormalities. Vital Signs: Vital Signs: Last Vital Signs Temp 97.8 F 01/02/25 11:12 Pulse 81 01/02/25 11:12 Resp 18 01/02/25 11:12 BP 111/55 L 01/02/25 11:12 Pulse Ox 96 01/02/25 11:12 O2 Del Method Nasal Cannula 01/02/25 11:12 O2 Flow Rate 2 01/02/25 11:12 Oxygen Flow Rate 2.5 12/31/24 16:15 BMI result Body Mass Index 29.2 Objective Data Active Medications Acetaminophen (Acetaminophen 325 Mg Tablet) 975 mg PO Q6H PRN PRN Reason: Pain, Mild 1-3,fever,headache Last Admin: 01/01/25 21:07 Dose: 975 mg Documented By: TONY Albuterol/Ipratropium (Albuterol/Iprat 2.5/0.5mg 3 Ml Ampul.Neb) 3 ml INHALE RQ4H WHILE AWAKE PRN PRN Reason: Shortness of Breath Last Admin: 12/30/24 00:08 Dose: 3 ml Documented By: BECCA Artificial Tears (Artificial Tears 15 Ml Drops) 2 drop EYE-BOTH Q4H PRN PRN Reason: Dry Eyes Last Admin: 01/02/25 14:09 Dose: 2 drop Documented By: ALEJANDRO Atorvastatin Calcium (Atorvastatin Calcium 40 Mg Tablet) 40 mg PO BEDTIME [facility] Last Admin: 01/01/25 21:08 Dose: 40 mg Documented By: TONY Azithromycin (Azithromycin 500 Mg Tablet) 500 mg PO Q24H [facility] Last Admin: 01/01/25 21:08 Dose: 500 mg Documented By: TONY Benzocaine (Throat Lozenge, Medicated Lozenge) 1 lozenge MUCOUS MEM Q2H PRN PRN Reason: Sore Throat Last Admin: 01/01/25 21:08 Dose: 1 lozenge Documented By: TONY Ceftriaxone Sodium (Ceftriaxone Sodium 1 Gm Vial) 1 gm IVPUSH Q24H [facility] Last Admin: 01/01/25 21:08 Dose: 1 gm Documented By: TONY Dextrose (Dextrose 50 % 25 Gm/50 Ml Syringe) 25 gm IVPUSH Q15M PRN; Protocol PRN Reason: per Hypoglycemia Standing Ord. Furosemide (Furosemide 40 Mg Tablet) 40 mg PO DAILY [facility]; Protocol On Hold: 01/02/25 14:13 Last Admin: 01/02/25 09:03 Dose: 40 mg Documented By: ALEJANDRO Furosemide (Furosemide 40 Mg/4 Ml Vial) 40 mg IVPUSH BID@0900,1800 [facility]; Protocol Gabapentin (Gabapentin 300 Mg Capsule) 300 mg PO BID [facility] Last Admin: 01/02/25 09:04 Dose: 300 mg Documented By: ALEJANDRO Glucose (Glucose Gel 15 Gm Gel..Gram.) 15 gm PO Q15M PRN; Protocol PRN Reason: per Hypoglycemia Standing Ord. Guaifenesin (Guaifenesin 200 Mg/10 Ml 10 Ml Liquid) 10 ml PO Q4H PRN PRN Reason: Cough Insulin Human Lispro (Insulin Lispro 100 Unit/Ml 3 Ml Vial) 0 unit SUBCUT QIDACHS COUNT [facility]; Protocol Last Admin: 01/02/25 12:45 Dose: 2 unit Documented By: ALEJANDRO Metoprolol Succinate (Metoprolol Succinate Er 100 Mg Tab.Er.24h) 100 mg PO DAILY [facility]; Protocol Last Admin: 01/02/25 09:04 Dose: 100 mg Documented By: ALEJANDRO Omeprazole (Omeprazole 20 Mg Capsule.Dr) 20 mg PO BID@0630,1630 [facility] Last Admin: 01/02/25 05:38 Dose: 20 mg Documented By: TONY Rivaroxaban (Rivaroxaban 20 Mg Tablet) 20 mg PO DAILY@1700 [facility] Last Admin: 01/01/25 16:38 Dose: 20 mg Documented By: ALEJANDRO Sodium Chloride (0.9 % Sodium Chloride Flush 3 Ml Syringe) 3 ml IVFLUSH QSHIFT COUNT [facility] Last Admin: 01/02/25 09:03 Dose: 3 ml Documented By: ALEJANDRO Tramadol HCl (Tramadol Hcl 50 Mg Tablet) 50 mg PO Q8H PRN PRN Reason: Pain, Moderate(Pain Scale 4-6) Labs 01/01/25 07:55 01/01/25 07:55 Labs: Laboratory Results - last 24 hr 12/27/24 01/01/25 01/01/25 05:01 16:06 20:50 POC Glucose 121 H 138 H Mycoplasma pneumon IgG <=0.90 Mycoplasma pneumon IgM 223 01/02/25 01/02/25 07:24 11:13 POC Glucose 140 H 169 H Mycoplasma pneumon IgG Mycoplasma pneumon IgM Assessment and Plan (1) CHF (congestive heart failure): Status: Acute (2) Cardiac pacemaker in situ: Status: Acute (3) NSVT (nonsustained ventricular tachycardia): Status: Acute (4) Atrial fibrillation with RVR: Status: Acute (5) Sepsis: Status: Acute Plan 79-year-old male, with a history of HTN, type 2 diabetes mellitus, ischemic CHF status post PPM, aortic stenosis s/p TAVR, presented 12/26 with dyspnea, admitted with acute respiratory failure 2/2 pneumonia and CHF exacerbation, course c/b AFib RVR with hypotension s/p MICU transfer for acute hypoxic respiratory failure, transfer to medical floor (12/31). Multifactorial acute hypoxic respiratory failure Remains on 2 L NC PLAN - wean off nasal cannula as tolerated - consider repeat chest x-ray - trend BMP/BNP - consider DuoNebs Community-acquired pneumonia PLAN - continue azithromycin - continue ceftriaxone - guaifenesin - consider DuoNebs Acute CHF exacerbation CAD s/p CABG S/p PPM PLAN - continue rivaroxaban 20 mg OD p.o. - atorvastatin 40 mg OD p.o. - furosemide 40 BID IV - trend BMP/BNP - daily weights - intake/output q.6 hourly - cardiac telemetry AFib RVR PLAN - continue Xarelto 20 mg OD p.o. - continue metoprolol 100 mg OD p.o. - cardiac telemetry - treat underlying hypoxia, pneumonia and CHF exacerbation T2 DM - ISS - POC glucose - diabetic diet - gabapentin 300 mg b.i.d. p.o. GERD - omeprazole 20 mg b.i.d. p.o. [facility] [employer] - VTE: Xarelto - CODE STATUS: Full code - DIET: Cardiac Total time managing care of this patient today: 35 minutes. Quality Stroke Does the patient have a stroke diagnosis?: No VTE Prior VTE?: No VTE Risk Level:: Medical - moderate - high VTE Device Contraindication: Treatment Not Indicated VTE Drug Contraindication: N/A - Med Ordered
[2025-01-02] MEDS: Albuterol Sulfate 2.5 MG, Albuterol/Iprat 2.5/0.5MG 3 ML 3 ML INHALE (15:30)
[2025-01-02 15:43] LABS: Glucose, Whole Blood 137 mg/dL (60-115)
[2025-01-02] MEDS: Furosemide 40 MG/4 ML VIAL IVPUSH (17:16)
--- NOTE | 2025-01-02 19:15 | P.CDIM_ITS ---
PROVIDER RESPONSE TEXT: To clarify, the appropriate diagnosis supported by the clinical indicators: CKD, please provide stage: CKD stage 2 QUERY TEXT: PHYSICIAN'S DOCUMENTATION REQUEST Date of Query: 12/28/2024 09:08 AM EDT Patient Name: Thaddeus Velásquez Admit Date: 12/27/2024 Dear Rodo BRITT, A review of the medical record indicates additional documentation may be needed. Please review below and update the documentation accordingly. Clinical Indicators: Progress note dated 12/27/24 - CKD: Patient's creatinine stabilized around 1.5 1.64. Will monitor. Please clarify which of the following accurately represents the patient's stage of the noted CKD: CKD, please provide stage 1, 2, 3a, 3b, 4 ESRD - CKD V now requiring permanent dialysis and/or transplant Other (explain) Clinically unable to determine (explain) Thank you, Marisol Baron, CCS, CDIS Use of terms such as suspected, likely, concern for, or probable (associated with a specific diagnosis that is being evaluated, monitored, or treated as if it exists) are acceptable and can be coded in the inpatient setting, when documented at the time of discharge. Please use your independent medical judgment in providing your response. THIS QUERY IS PART OF THE PERMANENT MEDICAL RECORD
[2025-01-02 20:46] LABS: Glucose, Whole Blood 151 mg/dL (60-115)
[2025-01-03] VITALS (9 sets, daily range): BP systolic 108–128; BP diastolic 54–58; PULSE 76–86; RESP 12–20; TEMP 36.6–37.7; O2SAT 91–92; BMI 29.9
--- NOTE | 2025-01-03 05:47 | PC.NURSE ---
Patient febrile in the evening 100.5 po, HR mildly elevated 103. BP and other vitals stable. Pt denies chills or other complaints. Covering Dr. Arnoldo Howard notified during 20:00 hour last BCx were 12/26, negative on both sets. orders for U/A only. Pt educated by this medical underwriter on need for clean catch with supplies placed at bedside and pt encouraged to call for assistance obtaining sample for clean U/A, however, despite this, this patient continues to void in the urinal without cleaning or calling staff to assist in voiding for sample collection; as such medical underwriter has been unable to obtain this urine sample. Prn tylenol was given for fever with +effect. No further fever overnight. IS also encouraged as ordered. Breathing remains even and unlabored without distress, pt continues on 2L nc. Bed/chair alarms on and safety measures in place. Plan of care ongoing.
[2025-01-03 06:44] LABS: Appearance Urine Clear; Glucose Urine UA Negative (Negative); PH 5.0 (5.0-9.0); Specific Gravity - Urine 1.010 (1.005-1.025)
[2025-01-03 07:26] LABS: B Type Natriuretic Peptide 120 pg/mL (<100)
[2025-01-03 07:31] LABS: Anion Gap 13 (12-20); Blood Urea Nitrogen 27 mg/dL (9-16); Calcium 8.9 mg/dL (8.4-10.2); Carbon Dioxide 29 mmol/L (22-29); Chloride 96 mmol/L (96-108); Creatinine Clr Calc Pharmacy 65.8; Estimated Glomerular Filt Rate > 60; Potassium 3.6 mmol/L (3.3-5.1); Sodium 134 mmol/L (135-145)
[2025-01-03 07:34] LABS: Glucose, Whole Blood 123 mg/dL (60-115)
[2025-01-03] MEDS: Furosemide 40 MG/4 ML VIAL IVPUSH ×2 (09:19→17:43)
[2025-01-03] MEDS: 0.9 % Sodium Chloride Flush 3 ML SYRINGE IVFLUSH ×3 (09:20→20:31)
[2025-01-03] MEDS: Metoprolol Succinate ER 100 MG TAB.ER.24H PO (09:20)
[2025-01-03] MEDS: Artificial Tears 15 ML DROPS 2 DROP EYE-BOTH (09:25)
[2025-01-03 11:37] LABS: Glucose, Whole Blood 160 mg/dL (60-115)
[2025-01-03 15:57] LABS: Glucose, Whole Blood 147 mg/dL (60-115)
--- NOTE | 2025-01-03 18:34 | P.PNIM_ITS ---
Subjective Subjective Date of Service: 01/03/25 Interval History: Patient feels much improved today as compared to yesterday. Remains on nasal cannula, however reports his breathing has improved. Denies palpitations, chest pain, lower extremity swelling. Still endorses persistent fatigue Review of Systems Review of Systems: Yes all other systems are reviewed and are negative Physical Exam 2 Exam: Exam: General: A&O x3, oriented to time place person and situation, comfortable, no pain Cardiac: S1, S2 auscultated with no S3/4, no MRG. Well perfused. Respiratory: Generalized wheezing and crackles auscultated throughout lower lung zones and mid zones. Decreased breath sounds at the bases bilaterally. Wheezing predominantly in the upper and mid zones. No respiratory distress. GI/ : No abdominal pain on palpation, no masses or distentions. MSK: Normal ambulation without pain at bony prominences or musculature Neurological: Normal neurological examination on overview, without obvious CN II-XII abnormalities. Vital Signs: Vital Signs: Last Vital Signs Temp 98.9 F 01/03/25 16:00 Pulse 82 01/03/25 16:00 Resp 20 01/03/25 16:00 BP 118/54 L 01/03/25 17:43 Pulse Ox 92 01/03/25 16:00 O2 Del Method Nasal Cannula 01/03/25 16:00 O2 Flow Rate 2 01/03/25 16:00 Oxygen Flow Rate 2.5 12/31/24 16:15 BMI result Body Mass Index 29.9 Objective Data Active Medications Acetaminophen (Acetaminophen 325 Mg Tablet) 975 mg PO Q6H PRN PRN Reason: Pain, Mild 1-3,fever,headache Last Admin: 01/02/25 20:51 Dose: 975 mg Documented By: SHANICE Artificial Tears (Artificial Tears 15 Ml Drops) 2 drop EYE-BOTH Q4H PRN PRN Reason: Dry Eyes Last Admin: 01/03/25 09:25 Dose: 2 drop Documented By: VINICIUS Comments: Patient requested. Atorvastatin Calcium (Atorvastatin Calcium 40 Mg Tablet) 40 mg PO BEDTIME [facility] Last Admin: 01/02/25 20:51 Dose: 40 mg Documented By: SHANICE Azithromycin (Azithromycin 500 Mg Tablet) 500 mg PO Q24H [facility] Last Admin: 01/02/25 20:55 Dose: 500 mg Documented By: SHANICE Benzocaine (Throat Lozenge, Medicated Lozenge) 1 lozenge MUCOUS MEM Q2H PRN PRN Reason: Sore Throat Last Admin: 01/01/25 21:08 Dose: 1 lozenge Documented By: TONY Ceftriaxone Sodium (Ceftriaxone Sodium 1 Gm Vial) 1 gm IVPUSH Q24H [facility] Last Admin: 01/02/25 21:22 Dose: 1 gm Documented By: SEDA Dextrose (Dextrose 50 % 25 Gm/50 Ml Syringe) 25 gm IVPUSH Q15M PRN; Protocol PRN Reason: per Hypoglycemia Standing Ord. Furosemide (Furosemide 40 Mg Tablet) 40 mg PO DAILY [facility]; Protocol On Hold: 01/02/25 14:13 Last Admin: 01/02/25 09:03 Dose: 40 mg Documented By: ALEJANDRO Furosemide (Furosemide 40 Mg/4 Ml Vial) 40 mg IVPUSH BID@0900,1800 [facility]; Protocol Last Admin: 01/03/25 17:43 Dose: 40 mg Documented By: VINICIUS Gabapentin (Gabapentin 300 Mg Capsule) 300 mg PO BID [facility] Last Admin: 01/03/25 09:20 Dose: 300 mg Documented By: VINICIUS Glucose (Glucose Gel 15 Gm Gel..Gram.) 15 gm PO Q15M PRN; Protocol PRN Reason: per Hypoglycemia Standing Ord. Guaifenesin (Guaifenesin 200 Mg/10 Ml 10 Ml Liquid) 10 ml PO Q4H PRN PRN Reason: Cough Insulin Human Lispro (Insulin Lispro 100 Unit/Ml 3 Ml Vial) 0 unit SUBCUT QIDACHS [facility]; Protocol Last Admin: 01/03/25 16:08 Dose: Not Given Documented By: VINICIUS Non-Admin Reason: No Insulin Coverage Metoprolol Succinate (Metoprolol Succinate Er 100 Mg Tab.Er.24h) 100 mg PO DAILY [facility]; Protocol Last Admin: 01/03/25 09:20 Dose: 100 mg Documented By: VINICIUS Omeprazole (Omeprazole 20 Mg Capsule.) 20 mg PO BID@0630,1630 [facility] Last Admin: 01/03/25 16:07 Dose: 20 mg Documented By: VINICIUS Rivaroxaban (Rivaroxaban 20 Mg Tablet) 20 mg PO DAILY@1700 [facility] Last Admin: 01/03/25 16:07 Dose: 20 mg Documented By: VINICIUS Sodium Chloride (0.9 % Sodium Chloride Flush 3 Ml Syringe) 3 ml IVFLUSH QSHIFT [facility] Last Admin: 01/03/25 16:07 Dose: 3 ml Documented By: VINICIUS Tramadol HCl (Tramadol Hcl 50 Mg Tablet) 50 mg PO Q8H PRN PRN Reason: Pain, Moderate(Pain Scale 4-6) Labs 01/01/25 07:55 01/03/25 06:53 Labs: Laboratory Results - last 24 hr 01/02/25 01/03/25 01/03/25 20:44 06:27 06:53 Anion Gap 13 Estim Creat Clear Calc 65.8 Estimated GFR > 60 POC Glucose 151 H Random Glucose 141 H Calcium 8.9 B-Natriuretic Peptide 120 H Urine Color Yellow Urine Appearance Clear Urine pH 5.0 Ur Specific [place] 1.010 Urine Protein Negative Urine Glucose (UA) Negative Urine Ketones Negative Urine Blood Negative Urine Nitrite Negative Ur Leukocyte Esterase Negative 01/03/25 01/03/25 01/03/25 07:20 11:33 15:53 Anion Gap Estim Creat Clear Calc Estimated GFR POC Glucose 123 H 160 H 147 H Random Glucose Calcium B-Natriuretic Peptide Urine Color Urine Appearance Urine pH Ur Specific [place] Urine Protein Urine Glucose (UA) Urine Ketones Urine Blood Urine Nitrite Ur Leukocyte Esterase Assessment and Plan (1) CHF (congestive heart failure): Status: Acute (2) Cardiac pacemaker in situ: Status: Acute (3) NSVT (nonsustained ventricular tachycardia): Status: Acute (4) Type 2 diabetes mellitus: Status: Acute (5) Acute hypoxic respiratory failure: Status: Acute Plan 79-year-old male, with a history of HTN, type 2 diabetes mellitus, ischemic CHF status post PPM, aortic stenosis s/p TAVR, presented 12/26 with dyspnea, admitted with acute respiratory failure 2/2 pneumonia and CHF exacerbation, course c/b AFib RVR with hypotension s/p MICU transfer for acute hypoxic respiratory failure, transfer to medical floor (12/31). Multifactorial acute hypoxic respiratory failure Remains on 2 L NC PLAN - wean off nasal cannula as tolerated - consider repeat chest x-ray - trend BMP/BNP - DuoNebs Community-acquired pneumonia PLAN - continue azithromycin - continue ceftriaxone - guaifenesin - consider DuoNebs Acute CHF exacerbation CAD s/p CABG S/p PPM PLAN - continue rivaroxaban 20 mg OD p.o. - atorvastatin 40 mg OD p.o. - furosemide 40 BID IV - trend BMP/BNP - daily weights - intake/output q.6 hourly - cardiac telemetry AFib RVR PLAN - continue Xarelto 20 mg OD p.o. - continue metoprolol 100 mg OD p.o. - cardiac telemetry - treat underlying hypoxia, pneumonia and CHF exacerbation T2 DM - ISS - POC glucose - diabetic diet - gabapentin 300 mg b.i.d. p.o. GERD - omeprazole 20 mg b.i.d. p.o. QUALITY METRICS - VTE: Xarelto - CODE STATUS: Full code - DIET: Cardiac Quality Stroke Does the patient have a stroke diagnosis?: No VTE Prior VTE?: No VTE Risk Level:: Medical - moderate - high VTE Device Contraindication: Treatment Not Indicated VTE Drug Contraindication: N/A - Med Ordered
[2025-01-03 19:53] LABS: Glucose, Whole Blood 192 mg/dL (60-115)
[2025-01-04 03:30] VITALS: BP 110/62; PULSE 77; RESP 18; TEMP 36.6; O2SAT 92
[2025-01-04 06:00] VITALS: BMI 29.9
[2025-01-04 07:47] LABS: Glucose, Whole Blood 137 mg/dL (60-115)
[2025-01-04 08:00] VITALS: BP 110/52; PULSE 76; RESP 20; TEMP 36.8; O2SAT 92
[2025-01-04 08:02] LABS: Anion Gap 13 (12-20); Blood Urea Nitrogen 28 mg/dL (9-16); Calcium 9.0 mg/dL (8.4-10.2); Carbon Dioxide 30 mmol/L (22-29); Chloride 95 mmol/L (96-108); Creatinine Clr Calc Pharmacy 60.4; Estimated Glomerular Filt Rate > 60; Potassium 3.9 mmol/L (3.3-5.1); Sodium 134 mmol/L (135-145)
[2025-01-04] MEDS: Furosemide 40 MG/4 ML VIAL IVPUSH ×2 (08:39→17:06)
[2025-01-04] MEDS: Metoprolol Succinate ER 100 MG TAB.ER.24H PO (08:41)
[2025-01-04] MEDS: 0.9 % Sodium Chloride Flush 3 ML SYRINGE IVFLUSH ×3 (08:41→21:05)
[2025-01-04] MEDS: Artificial Tears 15 ML DROPS 2 DROP EYE-BOTH (08:44)
--- NOTE | 2025-01-04 10:45 | MHC.CM.PN ---
PT continues to recommend STR; referrals have been updated and CM will continue to follow.
[2025-01-04 11:39] LABS: Glucose, Whole Blood 150 mg/dL (60-115)
[2025-01-04 12:00] VITALS: BP 104/54; PULSE 72; RESP 20; TEMP 36.6; O2SAT 93
--- NOTE | 2025-01-04 12:57 | HO.PM.IMPN ---
Subjective Subjective Date of Service: 01/04/25 Interval History: He reports improvement in his overall condition but continues to experience a tickle cough. The patient describes his cough as a persistent tickle with attempts to bring up mucus from his lower airways. This symptom is likely related to atelectasis, a condition where parts of the lungs collapse due to inactivity during hospitalization. As Thaddeus becomes more active, he is experiencing increased mucus production as his airways reopen. He denies using oxygen at home normally. The patient expresses a desire to be discharged and return home, indicating his improving health status and readiness for discharge planning. Review of Systems Respiratory: Positive for cough described as a tickle cough . Review of Systems: Yes all other systems are reviewed and are negative Physical Exam Exam: Exam: General: A&O x3, oriented to time place person and situation, comfortable, no pain Cardiac: S1, S2 auscultated with no S3/4, no MRG. Well perfused. Respiratory: Generalized wheezing and crackles auscultated throughout lower lung zones and mid zones. Decreased breath sounds at the bases bilaterally. Wheezing predominantly in the upper and mid zones. No respiratory distress. Remains on 0.5-2L O2 with variable SpO2 of 91-95% GI/ : No abdominal pain on palpation, no masses or distentions. MSK: Normal ambulation without pain at bony prominences or musculature Neurological: Normal neurological examination on overview, without obvious CN II-XII abnormalities. Vital Signs: Vital Signs: Last Vital Signs Temp 97.9 F 01/04/25 12:00 Pulse 72 01/04/25 12:00 Resp 20 01/04/25 12:00 BP 104/54 L 01/04/25 12:00 Pulse Ox 93 01/04/25 12:00 O2 Del Method Nasal Cannula 01/04/25 12:00 O2 Flow Rate 2 01/04/25 12:00 Oxygen Flow Rate 2.5 12/31/24 16:15 BMI result Body Mass Index 29.9 Objective Data Active Medications Acetaminophen (Acetaminophen 325 Mg Tablet) 975 mg PO Q6H PRN PRN Reason: Pain, Mild 1-3,fever,headache Last Admin: 01/02/25 20:51 Dose: 975 mg Documented By: SHANICE Artificial Tears (Artificial Tears 15 Ml Drops) 2 drop EYE-BOTH Q4H PRN PRN Reason: Dry Eyes Last Admin: 01/04/25 08:44 Dose: 2 drop Documented By: AMELIA Atorvastatin Calcium (Atorvastatin Calcium 40 Mg Tablet) 40 mg PO BEDTIME [facility] Last Admin: 01/03/25 20:30 Dose: 40 mg Documented By: CONSTANTIN Azithromycin (Azithromycin 500 Mg Tablet) 500 mg PO Q24H [facility] Last Admin: 01/03/25 20:30 Dose: 500 mg Documented By: CONSTANTIN Benzocaine (Throat Lozenge, Medicated Lozenge) 1 lozenge MUCOUS MEM Q2H PRN PRN Reason: Sore Throat Last Admin: 01/01/25 21:08 Dose: 1 lozenge Documented By: TONY Ceftriaxone Sodium (Ceftriaxone Sodium 1 Gm Vial) 1 gm IVPUSH Q24H [facility] Last Admin: 01/03/25 20:30 Dose: 1 gm Documented By: CONSTANTIN Dextrose (Dextrose 50 % 25 Gm/50 Ml Syringe) 25 gm IVPUSH Q15M PRN; Protocol PRN Reason: per Hypoglycemia Standing Ord. Furosemide (Furosemide 40 Mg Tablet) 40 mg PO DAILY [facility]; Protocol On Hold: 01/02/25 14:13 Last Admin: 01/02/25 09:03 Dose: 40 mg Documented By: ALEJANDRO Furosemide (Furosemide 40 Mg/4 Ml Vial) 40 mg IVPUSH BID@0900,1800 [facility]; Protocol Last Admin: 01/04/25 08:39 Dose: 40 mg Documented By: AMELIA Gabapentin (Gabapentin 300 Mg Capsule) 300 mg PO BID [facility] Last Admin: 01/04/25 08:41 Dose: 300 mg Documented By: AMELIA Glucose (Glucose Gel 15 Gm Gel..Gram.) 15 gm PO Q15M PRN; Protocol PRN Reason: per Hypoglycemia Standing Ord. Guaifenesin (Guaifenesin 200 Mg/10 Ml 10 Ml Liquid) 10 ml PO Q4H PRN PRN Reason: Cough Insulin Human Lispro (Insulin Lispro 100 Unit/Ml 3 Ml Vial) 0 unit SUBCUT QIDACHS [facility]; Protocol Last Admin: 01/04/25 11:54 Dose: Not Given Documented By: NIK Non-Admin Reason: No Insulin Coverage Metoprolol Succinate (Metoprolol Succinate Er 100 Mg Tab.Er.24h) 100 mg PO DAILY [facility]; Protocol Last Admin: 01/04/25 08:41 Dose: 100 mg Documented By: AMELIA Omeprazole (Omeprazole 20 Mg Capsule.) 20 mg PO BID@0630,1630 [facility] Last Admin: 01/04/25 05:40 Dose: 20 mg Documented By: CONSTANTIN Rivaroxaban (Rivaroxaban 20 Mg Tablet) 20 mg PO DAILY@1700 [facility] Last Admin: 01/03/25 16:07 Dose: 20 mg Documented By: VINICIUS Sodium Chloride (0.9 % Sodium Chloride Flush 3 Ml Syringe) 3 ml IVFLUSH QSHIFT [facility] Last Admin: 01/04/25 08:41 Dose: 3 ml Documented By: AMELIA Tramadol HCl (Tramadol Hcl 50 Mg Tablet) 50 mg PO Q8H PRN PRN Reason: Pain, Moderate(Pain Scale 4-6) Last Admin: 01/03/25 22:26 Dose: 50 mg Documented By: CONSTANTIN Labs 01/01/25 07:55 01/04/25 07:19 Labs: Laboratory Results - last 24 hr 01/03/25 01/03/25 01/04/25 15:53 19:17 07:19 Hold Purple Top SEE NOTE Anion Gap 13 Estim Creat Clear Calc 60.4 Estimated GFR > 60 POC Glucose 147 H 192 H Random Glucose 132 H Calcium 9.0 01/04/25 01/04/25 07:38 11:33 Hold Purple Top Anion Gap Estim Creat Clear Calc Estimated GFR POC Glucose 137 H 150 H Random Glucose Calcium Assessment and Plan (1) Atrial fibrillation with RVR: Status: Acute (2) CHF (congestive heart failure): Status: Acute (3) Dyspnea on exertion: Status: Acute (4) Type 2 diabetes mellitus: Status: Acute (5) Acute hypoxic respiratory failure: Status: Acute (6) Pneumonia: Status: Acute (7) Physical deconditioning: Status: Acute Plan 79-year-old male, with a history of HTN, type 2 diabetes mellitus, ischemic CHF status post PPM, aortic stenosis s/p TAVR, presented 12/26 with dyspnea, admitted with acute respiratory failure 2/2 pneumonia and CHF exacerbation, course c/b AFib RVR with hypotension s/p MICU transfer for acute hypoxic respiratory failure, transfer to medical floor (12/31). Multifactorial acute hypoxic respiratory failure Remains on 2 L NC PLAN - wean off nasal cannula as tolerated - trend BMP/BNP - DuoNebs - Planning for home O2 - Consider prednisone (has recorded allergy - GI) ; will clarify further Community-acquired pneumonia PLAN - continue azithromycin - continue ceftriaxone - guaifenesin - consider DuoNebs Acute CHF exacerbation CAD s/p CABG S/p PPM PLAN - continue rivaroxaban 20 mg OD p.o. - atorvastatin 40 mg OD p.o. - furosemide 40 BID IV - trend BMP/BNP - daily weights - intake/output q.6 hourly - cardiac telemetry AFib RVR PLAN - continue Xarelto 20 mg OD p.o. - continue metoprolol 100 mg OD p.o. - cardiac telemetry - treat underlying hypoxia, pneumonia and CHF exacerbation T2 DM - ISS - POC glucose - diabetic diet - gabapentin 300 mg b.i.d. p.o. GERD - omeprazole 20 mg b.i.d. p.o. [employer] [employer] - VTE: Xarelto - CODE STATUS: Full code - DIET: Cardiac Total time managing care of this patient today: 35 minutes. Quality Stroke Does the patient have a stroke diagnosis?: No VTE Prior VTE?: No VTE Risk Level:: Medical - moderate - high VTE Device Contraindication: Treatment Not Indicated VTE Drug Contraindication: N/A - Med Ordered
--- NOTE | 2025-01-04 13:53 | MHC.CM.PN ---
CM met with Patient to discuss dc planning; he has chosen [facility] for STR. CM will continue to follow.
--- NOTE | 2025-01-04 15:24 | MHC.CM.PN ---
Addendum entered by Natali Ruvalcaba 01/04/25 15:40: CM received a return call from Son/Sergey; he is agreeable to locate the HCP and provide CM with a copy. Sergey believes that Patient named his Sister as his Agent. CM will follow. Original Note: CM attempted to complete a HCP with Patient today; he stated, I don't want to make that decision today. Patient also indicated that he is sure he has already completed one and that he has a copy at home. CM has left a detailed message for Patient's Son/Sergey, requesting that he provide a copy luisito.
[2025-01-04 16:00] VITALS: BP 107/49; PULSE 88; RESP 20; TEMP 36.4; O2SAT 94
[2025-01-04 16:02] LABS: Glucose, Whole Blood 144 mg/dL (60-115)
[2025-01-04 19:38] VITALS: BP 103/57; PULSE 85; RESP 18; TEMP 36.4; O2SAT 93
[2025-01-04 20:41] LABS: Glucose, Whole Blood 166 mg/dL (60-115)
[2025-01-04 23:43] VITALS: BP 104/51; PULSE 77; RESP 18; TEMP 37.8; O2SAT 96
[2025-01-05 03:09] VITALS: BP 108/53; PULSE 76; RESP 18; TEMP 37.3; O2SAT 93
[2025-01-05 05:51] VITALS: BMI 29.1
[2025-01-05 07:17] VITALS: BP 106/51; PULSE 76; RESP 20; TEMP 37; O2SAT 94
[2025-01-05 07:30] LABS: Anion Gap 16 (12-20); Blood Urea Nitrogen 28 mg/dL (9-16); Calcium 8.9 mg/dL (8.4-10.2); Carbon Dioxide 27 mmol/L (22-29); Chloride 94 mmol/L (96-108); Creatinine Clr Calc Pharmacy 59.1; Estimated Glomerular Filt Rate > 60; Potassium 3.8 mmol/L (3.3-5.1); Sodium 133 mmol/L (135-145)
[2025-01-05 07:37] LABS: Glucose, Whole Blood 142 mg/dL (60-115)
[2025-01-05] MEDS: Furosemide 40 MG/4 ML VIAL IVPUSH ×2 (09:27→18:35)
[2025-01-05] MEDS: 0.9 % Sodium Chloride Flush 3 ML SYRINGE IVFLUSH ×3 (09:27→21:13)
[2025-01-05] MEDS: Metoprolol Succinate ER 100 MG TAB.ER.24H PO (09:27)
[2025-01-05 11:14] VITALS: BP 104/52; PULSE 74; RESP 20; TEMP 36.7; O2SAT 96
[2025-01-05 11:58] LABS: Glucose, Whole Blood 227 mg/dL (60-115)
--- NOTE | 2025-01-05 13:53 | HO.PM.IMPN ---
Subjective Subjective Date of Service: 01/05/25 Interval History: Feels better overall. His cough has been improving gradually. Has not had any respiratory distress. Remains on O2, however 0.5 L, with improvement in SpO2 overall. Review of Systems Review of Systems: Yes all other systems are reviewed and are negative Physical Exam Exam: Exam: General: A&O x3, oriented to time place person and situation, comfortable, no pain Cardiac: S1, S2 auscultated with no S3/4, no MRG. Well perfused. Respiratory: Mild crepitations in the right lower lobe, with end expiratory wheezing in the left lower lobe. Otherwise, normal breath sounds auscultated throughout all lung zones, without wheezing, rales. Normal rate. GI/ : No abdominal pain on palpation, no masses or distentions. MSK: Normal ambulation without pain at bony prominences or musculature Neurological: Normal neurological examination on overview, without obvious CN II-XII abnormalities. Vital Signs: Vital Signs: Last Vital Signs Temp 98.0 F 01/05/25 11:14 Pulse 74 01/05/25 11:14 Resp 20 01/05/25 11:14 BP 104/52 L 01/05/25 11:14 Pulse Ox 96 01/05/25 11:14 O2 Del Method Nasal Cannula 01/05/25 11:14 O2 Flow Rate 2 01/05/25 11:14 Oxygen Flow Rate 2.5 12/31/24 16:15 BMI result Body Mass Index 29.1 Objective Data Active Medications Acetaminophen (Acetaminophen 325 Mg Tablet) 975 mg PO Q6H PRN PRN Reason: Pain, Mild 1-3,fever,headache Last Admin: 01/02/25 20:51 Dose: 975 mg Documented By: SHANICE Artificial Tears (Artificial Tears 15 Ml Drops) 2 drop EYE-BOTH Q4H PRN PRN Reason: Dry Eyes Last Admin: 01/04/25 08:44 Dose: 2 drop Documented By: AMELIA Atorvastatin Calcium (Atorvastatin Calcium 40 Mg Tablet) 40 mg PO BEDTIME [facility] Last Admin: 01/04/25 21:04 Dose: 40 mg Documented By: JERMAINE Azithromycin (Azithromycin 500 Mg Tablet) 500 mg PO Q24H [facility] Last Admin: 01/04/25 21:04 Dose: 500 mg Documented By: JERMAINE Benzocaine (Throat Lozenge, Medicated Lozenge) 1 lozenge MUCOUS MEM Q2H PRN PRN Reason: Sore Throat Last Admin: 01/01/25 21:08 Dose: 1 lozenge Documented By: TONY Ceftriaxone Sodium (Ceftriaxone Sodium 1 Gm Vial) 1 gm IVPUSH Q24H [facility] Last Admin: 01/04/25 21:05 Dose: 1 gm Documented By: JERMAINE Dextrose (Dextrose 50 % 25 Gm/50 Ml Syringe) 25 gm IVPUSH Q15M PRN; Protocol PRN Reason: per Hypoglycemia Standing Ord. Furosemide (Furosemide 40 Mg Tablet) 40 mg PO DAILY [facility]; Protocol On Hold: 01/02/25 14:13 Last Admin: 01/02/25 09:03 Dose: 40 mg Documented By: ALEJANDRO Furosemide (Furosemide 40 Mg/4 Ml Vial) 40 mg IVPUSH BID@0900,1800 [facility]; Protocol Last Admin: 01/05/25 09:27 Dose: 40 mg Documented By: NALINI Gabapentin (Gabapentin 300 Mg Capsule) 300 mg PO BID [facility] Last Admin: 01/05/25 09:26 Dose: 300 mg Documented By: NALINI Glucose (Glucose Gel 15 Gm Gel..Gram.) 15 gm PO Q15M PRN; Protocol PRN Reason: per Hypoglycemia Standing Ord. Guaifenesin (Guaifenesin 200 Mg/10 Ml 10 Ml Liquid) 10 ml PO Q4H PRN PRN Reason: Cough Insulin Human Lispro (Insulin Lispro 100 Unit/Ml 3 Ml Vial) 0 unit SUBCUT QIDACHS [facility]; Protocol Last Admin: 01/05/25 12:52 Dose: 4 unit Documented By: NALINI Metoprolol Succinate (Metoprolol Succinate Er 100 Mg Tab.Er.24h) 100 mg PO DAILY [facility]; Protocol Last Admin: 01/05/25 09:27 Dose: 100 mg Documented By: NALINI Omeprazole (Omeprazole 20 Mg Capsule.) 20 mg PO BID@0630,1630 [facility] Last Admin: 01/05/25 06:01 Dose: 20 mg Documented By: JERMAINE Rivaroxaban (Rivaroxaban 20 Mg Tablet) 20 mg PO DAILY@1700 [facility] Last Admin: 01/04/25 17:06 Dose: 20 mg Documented By: NIK Sodium Chloride (0.9 % Sodium Chloride Flush 3 Ml Syringe) 3 ml IVFLUSH QSHIFT [facility] Last Admin: 01/05/25 09:27 Dose: 3 ml Documented By: NALINI Tramadol HCl (Tramadol Hcl 50 Mg Tablet) 50 mg PO Q8H PRN PRN Reason: Pain, Moderate(Pain Scale 4-6) Last Admin: 01/03/25 22:26 Dose: 50 mg Documented By: CONSTANTIN Labs 01/01/25 07:55 01/05/25 06:49 Labs: Laboratory Results - last 24 hr 01/04/25 01/04/25 01/05/25 15:42 20:37 06:49 Anion Gap 16 Estim Creat Clear Calc 59.1 Estimated GFR > 60 POC Glucose 144 H 166 H Random Glucose 144 H Calcium 8.9 01/05/25 01/05/25 07:10 11:28 Anion Gap Estim Creat Clear Calc Estimated GFR POC Glucose 142 H 227 H Random Glucose Calcium Assessment and Plan (1) CHF (congestive heart failure): Status: Acute (2) Atrial fibrillation with RVR: Status: Acute (3) Type 2 diabetes mellitus: Status: Acute (4) Sepsis: Status: Acute (5) Acute hypoxic respiratory failure: Status: Acute (6) Pneumonia: Status: Acute Plan 79-year-old male, with a history of HTN, type 2 diabetes mellitus, ischemic CHF status post PPM, aortic stenosis s/p TAVR, presented 12/26 with dyspnea, admitted with acute respiratory failure 2/2 pneumonia and CHF exacerbation, course c/b AFib RVR with hypotension s/p MICU transfer for acute hypoxic respiratory failure, transfer to medical floor (12/31). Multifactorial acute hypoxic respiratory failure Remains on 2 L NC PLAN - wean off nasal cannula as tolerated - trend BMP/BNP - DuoNebs - Planning for home O2 - Consider prednisone (has recorded allergy - GI) ; will clarify further Community-acquired pneumonia PLAN - continue azithromycin - continue ceftriaxone - guaifenesin - consider DuoNebs Acute CHF exacerbation CAD s/p CABG S/p PPM PLAN - continue rivaroxaban 20 mg OD p.o. - atorvastatin 40 mg OD p.o. - furosemide 40 BID IV - trend BMP/BNP - daily weights - intake/output q.6 hourly - cardiac telemetry AFib RVR PLAN - continue Xarelto 20 mg OD p.o. - continue metoprolol 100 mg OD p.o. - cardiac telemetry - treat underlying hypoxia, pneumonia and CHF exacerbation T2 DM - ISS - POC glucose - diabetic diet - gabapentin 300 mg b.i.d. p.o. GERD - omeprazole 20 mg b.i.d. p.o. [employer] - VTE: Xarelto - CODE STATUS: Full code - DIET: Cardiac Quality Stroke Does the patient have a stroke diagnosis?: No VTE Prior VTE?: No VTE Risk Level:: Medical - moderate - high VTE Device Contraindication: Treatment Not Indicated VTE Drug Contraindication: N/A - Med Ordered
[2025-01-05 15:25] VITALS: BP 115/51; PULSE 74; RESP 20; TEMP 36.9; O2SAT 94
[2025-01-05 16:10] LABS: Glucose, Whole Blood 124 mg/dL (60-115)
[2025-01-05 19:18] VITALS: BP 101/46; PULSE 73; RESP 16; TEMP 37; O2SAT 96
[2025-01-05 21:10] LABS: Glucose, Whole Blood 140 mg/dL (60-115)
[2025-01-05 23:08] VITALS: BP 100/43; PULSE 67; RESP 18; TEMP 36.5; O2SAT 98
[2025-01-06 03:19] VITALS: BP 99/41; PULSE 81; RESP 18; TEMP 36.6; O2SAT 96
[2025-01-06 06:00] VITALS: BMI 28.7
[2025-01-06 07:37] VITALS: BP 113/54; PULSE 77; RESP 20; TEMP 36.6; O2SAT 95
[2025-01-06 08:04] LABS: Glucose, Whole Blood 128 mg/dL (60-115)
[2025-01-06] MEDS: Metoprolol Succinate ER 100 MG TAB.ER.24H PO (09:20)
[2025-01-06] MEDS: Furosemide 40 MG/4 ML VIAL IVPUSH ×2 (09:20→17:11)
[2025-01-06 11:31] VITALS: BP 104/51; PULSE 82; RESP 20; TEMP 36.1; O2SAT 94
[2025-01-06 11:58] LABS: Glucose, Whole Blood 177 mg/dL (60-115)
[2025-01-06 16:00] VITALS: BP 102/60; PULSE 82; RESP 20; TEMP 36.9; O2SAT 96
--- NOTE | 2025-01-06 16:57 | P.PNIM_ITS ---
Subjective Subjective Date of Service: 01/06/25 Interval History: Patient's respiratory function is stable as compared to yesterday, and reports some improvement in his cough. Patient reports bringing up more phlegm; clear in color. Patient denies palpitations, dizziness, diaphoresis, recurrence of fevers chills or shakes. Denies chest pain. Review of Systems Review of Systems: Yes all other systems are reviewed and are negative Physical Exam 2 Exam: Exam: General: A&O x3, oriented to time place person and situation, comfortable, no pain Cardiac: S1, S2 auscultated with no S3/4, no MRG. Well perfused. Respiratory: Mild crepitations in the right lower lobe, with end expiratory wheezing in the left lower lobe. Otherwise, normal breath sounds auscultated throughout all lung zones, without wheezing, rales. Normal rate. 0.5-1 L NC. GI/ : No abdominal pain on palpation, no masses or distentions. MSK: Normal ambulation without pain at bony prominences or musculature Neurological: Normal neurological examination on overview, without obvious CN II-XII abnormalities. Vital Signs: Vital Signs: Last Vital Signs Temp 98.5 F 01/06/25 16:00 Pulse 82 01/06/25 16:00 Resp 20 01/06/25 16:00 BP 102/60 01/06/25 16:00 Pulse Ox 96 01/06/25 16:00 O2 Del Method Nasal Cannula 01/06/25 16:00 O2 Flow Rate 2 01/06/25 16:00 Oxygen Flow Rate 2.5 12/31/24 16:15 BMI result Body Mass Index 28.7 Objective Data Active Medications Acetaminophen (Acetaminophen 325 Mg Tablet) 975 mg PO Q6H PRN PRN Reason: Pain, Mild 1-3,fever,headache Last Admin: 01/05/25 18:27 Dose: 975 mg Documented By: NALINI Artificial Tears (Artificial Tears 15 Ml Drops) 2 drop EYE-BOTH Q4H PRN PRN Reason: Dry Eyes Last Admin: 01/04/25 08:44 Dose: 2 drop Documented By: AMELIA Atorvastatin Calcium (Atorvastatin Calcium 40 Mg Tablet) 40 mg PO BEDTIME [facility] Last Admin: 01/05/25 21:13 Dose: 40 mg Documented By: JERMAINE Azithromycin (Azithromycin 500 Mg Tablet) 500 mg PO Q24H [facility] Last Admin: 01/05/25 21:48 Dose: 500 mg Documented By: JERMAINE Benzocaine (Throat Lozenge, Medicated Lozenge) 1 lozenge MUCOUS MEM Q2H PRN PRN Reason: Sore Throat Last Admin: 01/01/25 21:08 Dose: 1 lozenge Documented By: TONY Ceftriaxone Sodium (Ceftriaxone Sodium 1 Gm Vial) 1 gm IVPUSH Q24H [facility] Last Admin: 01/05/25 21:48 Dose: 1 gm Documented By: JERMAINE Dextrose (Dextrose 50 % 25 Gm/50 Ml Syringe) 25 gm IVPUSH Q15M PRN; Protocol PRN Reason: per Hypoglycemia Standing Ord. Furosemide (Furosemide 40 Mg Tablet) 40 mg PO DAILY [facility]; Protocol On Hold: 01/02/25 14:13 Last Admin: 01/02/25 09:03 Dose: 40 mg Documented By: ALEJANDRO Furosemide (Furosemide 40 Mg/4 Ml Vial) 40 mg IVPUSH BID@0900,1800 [facility]; Protocol Last Admin: 01/06/25 09:20 Dose: 40 mg Documented By: LIS Gabapentin (Gabapentin 300 Mg Capsule) 300 mg PO BID [facility] Last Admin: 01/06/25 09:20 Dose: 300 mg Documented By: LIS Glucose (Glucose Gel 15 Gm Gel..Gram.) 15 gm PO Q15M PRN; Protocol PRN Reason: per Hypoglycemia Standing Ord. Guaifenesin (Guaifenesin 200 Mg/10 Ml 10 Ml Liquid) 10 ml PO Q4H PRN PRN Reason: Cough Insulin Human Lispro (Insulin Lispro 100 Unit/Ml 3 Ml Vial) 0 unit SUBCUT QIDACHS [facility]; Protocol Last Admin: 01/06/25 12:02 Dose: 2 unit Documented By: LIS Metoprolol Succinate (Metoprolol Succinate Er 100 Mg Tab.Er.24h) 100 mg PO DAILY [facility]; Protocol Last Admin: 01/06/25 09:20 Dose: 100 mg Documented By: LIS Omeprazole (Omeprazole 20 Mg Capsule.) 20 mg PO BID@0630,1630 [facility] Last Admin: 01/06/25 05:51 Dose: 20 mg Documented By: HO.MASEREN Rivaroxaban (Rivaroxaban 20 Mg Tablet) 20 mg PO DAILY@1700 [facility] Last Admin: 01/05/25 18:27 Dose: 20 mg Documented By: NALINI Sodium Chloride (0.9 % Sodium Chloride Flush 3 Ml Syringe) 3 ml IVFLUSH QSHIFT [facility] Last Admin: 01/06/25 12:43 Dose: Not Given Documented By: LIS Non-Admin Reason: Previously Administered Labs 01/01/25 07:55 01/05/25 06:49 Labs: Laboratory Results - last 24 hr 01/05/25 01/06/25 01/06/25 21:05 07:29 11:29 POC Glucose 140 H 128 H 177 H Assessment and Plan (1) CHF (congestive heart failure): Status: Acute (2) Atrial fibrillation with RVR: Status: Acute (3) Type 2 diabetes mellitus: Status: Acute (4) Physical deconditioning: Status: Acute (5) Acute hypoxic respiratory failure: Status: Acute (6) Pneumonia: Status: Acute Plan 79-year-old male, with a history of HTN, type 2 diabetes mellitus, ischemic CHF status post PPM, aortic stenosis s/p TAVR, presented 12/26 with dyspnea, admitted with acute respiratory failure 2/2 pneumonia and CHF exacerbation, course c/b AFib RVR with hypotension s/p MICU transfer for acute hypoxic respiratory failure, transfer to medical floor (12/31). Multifactorial acute hypoxic respiratory failure Remains on 2 L NC PLAN - wean off nasal cannula as tolerated - trend BMP/BNP - DuoNebs - Planning for home O2 - Consider prednisone (has recorded allergy - GI) ; will clarify further Community-acquired pneumonia PLAN - continue azithromycin - continue ceftriaxone - guaifenesin - consider DuoNebs Acute CHF exacerbation CAD s/p CABG S/p PPM PLAN - continue rivaroxaban 20 mg OD p.o. - atorvastatin 40 mg OD p.o. - furosemide 40 BID IV - trend BMP/BNP - daily weights - intake/output q.6 hourly - cardiac telemetry AFib RVR PLAN - continue Xarelto 20 mg OD p.o. - continue metoprolol 100 mg OD p.o. - cardiac telemetry - treat underlying hypoxia, pneumonia and CHF exacerbation T2 DM - ISS - POC glucose - diabetic diet - gabapentin 300 mg b.i.d. p.o. GERD - omeprazole 20 mg b.i.d. p.o. [employer] - VTE: Xarelto - CODE STATUS: Full code - DIET: Cardiac Total time managing care of this patient today: 35 minutes. Quality Stroke Does the patient have a stroke diagnosis?: No VTE Prior VTE?: No VTE Risk Level:: Medical - moderate - high VTE Device Contraindication: Treatment Not Indicated VTE Drug Contraindication: N/A - Med Ordered
[2025-01-06 17:08] LABS: Glucose, Whole Blood 151 mg/dL (60-115)
[2025-01-06 19:35] VITALS: BP 104/51; PULSE 82; RESP 16; TEMP 37.3; O2SAT 94
[2025-01-06] MEDS: 0.9 % Sodium Chloride Flush 3 ML SYRINGE IVFLUSH (21:14)
[2025-01-06 21:17] LABS: Glucose, Whole Blood 158 mg/dL (60-115)
[2025-01-06 23:54] VITALS: BP 104/55; PULSE 73; RESP 16; TEMP 36.7; O2SAT 94
[2025-01-07 03:32] VITALS: BP 98/73; PULSE 72; RESP 18; TEMP 36.4; O2SAT 92
[2025-01-07 06:00] VITALS: BMI 28.4
[2025-01-07 07:17] LABS: Glucose, Whole Blood 135 mg/dL (60-115)
[2025-01-07 07:23] VITALS: BP 117/57; PULSE 71; RESP 16; TEMP 36.3; O2SAT 93
[2025-01-07] MEDS: Metoprolol Succinate ER 100 MG TAB.ER.24H PO (08:28)
[2025-01-07] MEDS: Furosemide 40 MG/4 ML VIAL IVPUSH ×2 (08:28→18:07)
[2025-01-07] MEDS: 0.9 % Sodium Chloride Flush 3 ML SYRINGE IVFLUSH ×3 (08:29→21:26)
[2025-01-07 09:40] LABS: Anion Gap 14 (12-20); Blood Urea Nitrogen 30 mg/dL (9-16); Calcium 9.5 mg/dL (8.4-10.2); Carbon Dioxide 33 mmol/L (22-29); Chloride 93 mmol/L (96-108); Creatinine Clr Calc Pharmacy 58.4; Estimated Glomerular Filt Rate > 60; Potassium 4.2 mmol/L (3.3-5.1); Sodium 136 mmol/L (135-145)
[2025-01-07 11:13] LABS: Glucose, Whole Blood 170 mg/dL (60-115)
[2025-01-07 11:24] VITALS: BP 110/56; PULSE 72; RESP 14; TEMP 36.9; O2SAT 94
--- NOTE | 2025-01-07 12:40 | MHC.CM.PN ---
Son/Sergey provided his Sister's contact info(Patient's Daughter/Ana @ [phone]).
[2025-01-07 15:19] VITALS: BP 110/56; PULSE 75; RESP 16; TEMP 36.7; O2SAT 94
--- NOTE | 2025-01-07 16:10 | HO.PM.IMPN ---
Subjective Subjective Date of Service: 01/07/25 Interval History: Feels stable as compared to yesterday. No new changes or symptoms. The patient is eager to be discharged home. Pending placement to STR with O2 administrating capability Review of Systems Review of Systems: Yes all other systems are reviewed and are negative Physical Exam Exam: Exam: General: A&O x3, oriented to time place person and situation, comfortable, no pain Cardiac: S1, S2 auscultated with no S3/4, no MRG. Well perfused. Respiratory: Normal breath sounds auscultated throughout all lung zones, without wheezing, rales. Normal rate. GI/ : No abdominal pain on palpation, no masses or distentions. MSK: Normal ambulation without pain at bony prominences or musculature Neurological: Normal neurological examination on overview, without obvious CN II-XII abnormalities. Vital Signs: Vital Signs: Last Vital Signs Temp 98.0 F 01/07/25 15:19 Pulse 75 01/07/25 15:19 Resp 16 01/07/25 15:19 BP 110/56 L 01/07/25 15:19 Pulse Ox 94 01/07/25 15:19 O2 Del Method Nasal Cannula 01/07/25 15:19 O2 Flow Rate 3 01/07/25 15:19 Oxygen Flow Rate 2.5 12/31/24 16:15 BMI result Body Mass Index 28.4 Objective Data Active Medications Acetaminophen (Acetaminophen 325 Mg Tablet) 975 mg PO Q6H PRN PRN Reason: Pain, Mild 1-3,fever,headache Last Admin: 01/06/25 21:28 Dose: 975 mg Documented By: JERMAINE Artificial Tears (Artificial Tears 15 Ml Drops) 2 drop EYE-BOTH Q4H PRN PRN Reason: Dry Eyes Last Admin: 01/04/25 08:44 Dose: 2 drop Documented By: AMELIA Atorvastatin Calcium (Atorvastatin Calcium 40 Mg Tablet) 40 mg PO BEDTIME KIET Last Admin: 01/06/25 21:14 Dose: 40 mg Documented By: JERMAINE Benzocaine (Throat Lozenge, Medicated Lozenge) 1 lozenge MUCOUS MEM Q2H PRN PRN Reason: Sore Throat Last Admin: 01/01/25 21:08 Dose: 1 lozenge Documented By: HO.JOHNSKE Dextrose (Dextrose 50 % 25 Gm/50 Ml Syringe) 25 gm IVPUSH Q15M PRN; Protocol PRN Reason: per Hypoglycemia Standing Ord. Furosemide (Furosemide 40 Mg/4 Ml Vial) 40 mg IVPUSH BID@0900,1800 [facility]; Protocol Last Admin: 01/07/25 08:28 Dose: 40 mg Documented By: POLLO Gabapentin (Gabapentin 300 Mg Capsule) 300 mg PO BID [facility] Last Admin: 01/07/25 08:28 Dose: 300 mg Documented By: POLLO Glucose (Glucose Gel 15 Gm Gel..Gram.) 15 gm PO Q15M PRN; Protocol PRN Reason: per Hypoglycemia Standing Ord. Guaifenesin (Guaifenesin 200 Mg/10 Ml 10 Ml Liquid) 10 ml PO Q4H PRN PRN Reason: Cough Insulin Human Lispro (Insulin Lispro 100 Unit/Ml 3 Ml Vial) 0 unit SUBCUT QIDACHS [facility]; Protocol Last Admin: 01/07/25 11:49 Dose: 2 unit Documented By: POLLO Metoprolol Succinate (Metoprolol Succinate Er 100 Mg Tab.Er.24h) 100 mg PO DAILY [facility]; Protocol Last Admin: 01/07/25 08:28 Dose: 100 mg Documented By: POLLO Omeprazole (Omeprazole 20 Mg Capsule.) 20 mg PO BID@0630,1630 [facility] Last Admin: 01/07/25 05:36 Dose: 20 mg Documented By: JERMAINE Rivaroxaban (Rivaroxaban 20 Mg Tablet) 20 mg PO DAILY@1700 [facility] Last Admin: 01/06/25 17:11 Dose: 20 mg Documented By: REMYFAA Sodium Chloride (0.9 % Sodium Chloride Flush 3 Ml Syringe) [address] [facility] Last Admin: 01/07/25 08:29 Dose: 3 ml Documented By: POLLO Labs 01/01/25 07:55 01/07/25 09:08 Labs: Laboratory Results - last 24 hr 01/06/25 01/06/25 01/07/25 16:07 20:53 07:06 Hold Purple Top Anion Gap Estim Creat Clear Calc Estimated GFR POC Glucose 151 H 158 H 135 H Random Glucose Calcium 01/07/25 01/07/25 09:08 11:10 Hold Purple Top SEE NOTE Anion Gap 14 Estim Creat Clear Calc 58.4 Estimated GFR > 60 POC Glucose 170 H Random Glucose 170 H Calcium 9.5 D Assessment and Plan (1) CHF (congestive heart failure): Status: Acute (2) Acute hypoxic respiratory failure: Status: Acute (3) Pneumonia: Status: Acute (4) Physical deconditioning: Status: Acute Plan 79-year-old male, with a history of HTN, type 2 diabetes mellitus, ischemic CHF status post PPM, aortic stenosis s/p TAVR, presented 12/26 with dyspnea, admitted with acute respiratory failure 2/2 pneumonia and CHF exacerbation, course c/b AFib RVR with hypotension s/p MICU transfer for acute hypoxic respiratory failure, transfer to medical floor (12/31). Multifactorial acute hypoxic respiratory failure Remains on 2 L NC PLAN - wean off nasal cannula as tolerated - trend BMP/BNP - DuoNebs - Planning for home O2 - Consider prednisone (has recorded allergy - GI) ; will clarify further Community-acquired pneumonia PLAN - continue azithromycin - continue ceftriaxone - guaifenesin - consider DuoNebs Acute CHF exacerbation CAD s/p CABG S/p PPM PLAN - continue rivaroxaban 20 mg OD p.o. - atorvastatin 40 mg OD p.o. - furosemide 40 BID PO - trend BMP/BNP - daily weights - intake/output q.6 hourly - cardiac telemetry AFib RVR PLAN - continue Xarelto 20 mg OD p.o. - continue metoprolol 100 mg OD p.o. - cardiac telemetry - treat underlying hypoxia, pneumonia and CHF exacerbation T2 DM - ISS - POC glucose - diabetic diet - gabapentin 300 mg b.i.d. p.o. GERD - omeprazole 20 mg b.i.d. p.o. [employer] - VTE: Xarelto - CODE STATUS: Full code - DIET: Cardiac Total time managing care of this patient today: 35 minutes. Quality Stroke Does the patient have a stroke diagnosis?: No VTE Prior VTE?: No VTE Risk Level:: Medical - moderate - high VTE Device Contraindication: Treatment Not Indicated VTE Drug Contraindication: N/A - Med Ordered
[2025-01-07 16:26] LABS: Glucose, Whole Blood 125 mg/dL (60-115)
[2025-01-07 18:07] VITALS: BP 109/57
[2025-01-07 19:26] VITALS: BP 120/58; PULSE 75; RESP 16; TEMP 37.1; O2SAT 95
[2025-01-07 20:52] LABS: Glucose, Whole Blood 138 mg/dL (60-115)
[2025-01-08] VITALS (9 sets, daily range): BP systolic 110–131; BP diastolic 56–82; PULSE 74–88; RESP 16–18; TEMP 36.9–37.4; O2SAT 90–93; BMI 28.2
[2025-01-08 07:19] LABS: Glucose, Whole Blood 129 mg/dL (60-115)
[2025-01-08] MEDS: 0.9 % Sodium Chloride Flush 3 ML SYRINGE IVFLUSH ×3 (08:38→19:30)
[2025-01-08] MEDS: Metoprolol Succinate ER 100 MG TAB.ER.24H PO (08:40)
[2025-01-08 11:36] LABS: Glucose, Whole Blood 170 mg/dL (60-115)
--- NOTE | 2025-01-08 13:10 | PM.DS ---
DS: Providers Provider Date of Service: 01/08/25 Date of admission: 12/26/24 21:52 Date of discharge: 01/08/25 Primary care physician: Emiliano Marie MD DS: Diagnosis Discharge Diagnosis (1) CHF (congestive heart failure): Status: Acute (2) Acute hypoxic respiratory failure: Status: Acute (3) Pneumonia: Status: Acute (4) Physical deconditioning: Status: Acute DS: Summary Hospital Course Hospital Course: Chief Complaint: SOB 79-year-old male with a past medical history of HTN, HLD, diabetes, paroxysmal AFib, aortic stenosis status post TAVR, TIA, duodenal ulcer, obesity, SVT, history of cardiac pacemaker,; presented to the hospital with a chief complaint of cough and shortness of breath. Patient mentioned that over the past few days he has been having sore throat. Has been having cough with occasional sputum production. Reports having shortness of breath on exertion. Denies any chest pain. Denies any nausea vomiting or diarrhea. Denies any urinary symptoms. Review of all other systems is negative except mentioned above ER course: Per ER team, patient on presentation noted to be febrile to 104 F; exam was benign; mildly tachypneic; chest x-ray showed patchy infiltrate concerning for pneumonia. Given antibiotics. Patient qualified for sepsis. Received sepsis fluids. Blood pressure within the soft side. hospital course: 79-year-old male, with a history of HTN, type 2 diabetes mellitus, ischemic CHF status post PPM, aortic stenosis s/p TAVR, presented 12/26 with dyspnea, admitted with acute respiratory failure 2/2 pneumonia and CHF exacerbation, course c/b AFib RVR with hypotension s/p MICU transfer for acute hypoxic respiratory failure, transfer to medical floor (12/31). Multifactorial acute hypoxic respiratory failure due to Pneumonia and CHF.. Pneumonia and CHF have been treated but remains on O2 at 2 liters and will wean as edith. He has completed antibiotics therapy with Ceftriaxone and Azithro and has been transition from IV Lasix to PO lasix. AFib RVR--RVR resolved, on metoprolol 100 bid and Xarelto 20 mg daily for stroke prevention T2 DM on sliding scale, to resume sitaglipitin upon discharge HLD statin GERD - omeprazole 20 mg b.i.d. p.o. Time Attestation Discharge Coordination Time (in mins): 45 Quality: Safe Use of Opioids Does Pt have an Active Cancer Diagnosis on the Problem List?: No Quality: Stroke Does the patient have a stroke diagnosis?: No Physical Exam Exam: Exam: General: A&O x3, oriented to time place person and situation, comfortable, no pain Cardiac: S1, S2 auscultated with no S3/4, no MRG. Well perfused. Respiratory: Normal breath sounds auscultated throughout all lung zones, without wheezing, rales. Normal rate. GI/ : No abdominal pain on palpation, no masses or distentions. MSK: Normal ambulation without pain at bony prominences or musculature Neurological: Normal neurological examination on overview, without obvious CN II-XII abnormalities. Vital Signs: Vital Signs: Last Vital Signs Temp 98.7 F 01/08/25 12:00 Pulse 88 01/08/25 12:00 Resp 18 01/08/25 12:00 BP 110/76 01/08/25 12:00 Pulse Ox 92 01/08/25 12:00 O2 Del Method Nasal Cannula 01/08/25 12:00 O2 Flow Rate 2 01/08/25 12:00 Oxygen Flow Rate 2.5 12/31/24 16:15 BMI result Body Mass Index 28.2 DS: Data Data Completed and Pending Completed studies during hospitalization [Text1]: Procedures Inspection of Upper Intestinal Tract, Via Natural or Artificial Opening Endoscopic (08/26/24) Transfusion of Nonautologous Red Blood Cells into Peripheral Vein, Percutaneous Approach (08/26/24) Labs on day of discharge: Laboratory Results - last 24 hr 01/07/25 01/07/25 01/08/25 16:19 20:49 07:14 POC Glucose 125 H 138 H 129 H 01/08/25 11:17 POC Glucose 170 H Discharge Plan Discharge Anticipated Discharge Date/Time: 01/08/25 13:25 Patient Disposition: Xfer SNF Discharge Diagnosis: Acute hypoxic respiratory failure due to pneumonia, CHF Referrals: [facility] [Outside] - 1 Week Emiliano Marie MD [Primary Care Provider, Internal Medicine] - 1 Week Discharge Medications: New furosemide 40 mg Tablet 40 mg PO BID@0900,1800 Qty: 180 0RF Protocol: Hold for SBP< HOLD for SBP < : 90 Artificial Tears([id number]) 1-0.2-0.2 % Drops 2 drp ophthalmic (eye) Q4H PRN (Reason: Dry Eyes) Qty: 15 0RF Continued Xarelto 20 mg tablet 20 mg PO DAILY Qty: 90 3RF atorvastatin 40 mg tablet 40 mg PO BEDTIME Qty: 90 3RF cyclosporine 0.1 % drops 1 drp ophthalmic (eye) BID Qty: 2 1RF gabapentin 300 mg capsule 300 mg PO BID Qty: 180 3RF cholecalciferol (vitamin D3) 25 mcg (1,000 unit) Tablet 25 mcg PO DAILY omeprazole 20 mg capsule,delayed release(DR/EC) 20 mg PO BID@0630,1630 Januvia 100 mg tablet 100 mg PO DAILY tramadol 50 mg tablet 50 mg PO DAILY PRN (Reason: Pain) ferrous sulfate 325 mg (65 mg iron) Tablet 325 mg PO DAILY Qty: 90 0RF metoprolol succinate [Toprol XL] 50 mg tablet extended release 24 hr 50 mg PO DAILY Qty: 30 5RF acetaminophen 325 mg tablet 650 mg PO Q8H PRN (Reason: Pain) albuterol sulfate 90 mcg/actuation HFA aerosol inhaler 1 inh inhalation QID PRN (Reason: shortness of breath or wheezing) Qty: 8.5 3RF Xiidra 5 % dropperette 1 drp ophthalmic (eye) BID Qty: 20 3RF Rx Instructions: administer approximately 12 hours apart Discontinued furosemide [Lasix] 20 mg tablet 20 mg PO DAILY Qty: 90 3RF No Action (DME) miscellaneous medical supply [facility] See Rx Instructions .Route Qty: 1 0RF Rx Instructions: Sling for left arm shoulder, elbow, wrist wear daily (DME) Knee Brace Large-XLarge [facility] See Rx Instructions .Route Qty: 1 0RF Rx Instructions: Knee brace extra large Discharge Orders: Discharge Order (Routine); Ordered 01/08/25 Ordered By: Leandro Wilson Diet: Diabetic diet Activity on Discharge: As tolerated Stand Alone Forms: Patient Portal Discharge page Print Language: Niuean Care Plan Goals: recovery from chf, pneumonia, afib Health Concerns: chf, pneumonia, AfIB with rvr Plan of Treatment: continue lasix for heart failure you have completed antibiotics for pneumonia Assessment: see above
--- NOTE | 2025-01-08 14:01 | MHC.CM.PN ---
Addendum entered by Natali Ruvalcaba 01/08/25 14:06: CM spoke with Son/Sergey @ [phone] and informed him of the dc plan. Original Note: Per MD, Patient is medically cleared for dc to SNF/[facility] today. Patient will dc to his SNF of choice/[facility] today at 5:30 PM, via [facility]. Imm was addressed with Patient at bedside and he named his Sister/Yareli as his HCP/Agent.
[2025-01-08 16:11] LABS: Glucose, Whole Blood 141 mg/dL (60-115)
[2025-01-09 21:57] LABS: Strep Pneumo Ag urine Not Detected (Not Detected)
== END 2025-01-08 20:43 | disposition skilled nursing facility (03) | DRG 871 ==
LOC: HO.ED 21:56 → HO.EDOVER 21:57 → HO.IMC 12-27 14:57 → HO.ICU 12-29 21:31 → HO.IMC 12-31 12:24
PROVIDERS: Hospitalist; Internal Medicine; Internal Medicine Critical Care Medicine; Internal Medicine Pulmonary Disease; Nurse Practitioner Family; Physician Assistant Medical; Student in an Organized Health Care Education/Training Program; Admitting Provider Hospitalist; Emergency Provider Student in an Organized Health Care Education/Training Program; PCP Internal Medicine; Visit Provider Internal Medicine
DX: A41.9 Sepsis, unspecified organism (principal); I50.33 Acute on chronic diastolic (congestive) heart failure; J18.9 Pneumonia, unspecified organism; J96.01 Acute respiratory failure with hypoxia; I13.0 Hypertensive heart and chronic kidney disease with heart failure and stage 1 through stage 4 chronic kidney disease, or unspecified chronic kidney disease; E87.1 Hypo-osmolality and hyponatremia; N17.9 Acute kidney failure, unspecified; J98.11 Atelectasis; Z95.0 Presence of cardiac pacemaker; I25.10 Atherosclerotic heart disease of native coronary artery without angina pectoris; R65.20 Severe sepsis without septic shock; K21.9 Gastro-esophageal reflux disease without esophagitis; R53.81 Other malaise; I48.0 Paroxysmal atrial fibrillation; E11.22 Type 2 diabetes mellitus with diabetic chronic kidney disease; N18.2 Chronic kidney disease, stage 2 (mild); Z20.822 Contact with and (suspected) exposure to COVID-19; Z95.1 Presence of aortocoronary bypass graft; Z95.2 Presence of prosthetic heart valve; Z87.891 Personal history of nicotine dependence; Z79.01 Long term (current) use of anticoagulants; Z79.899 Other long term (current) drug therapy
CPT/HCPCS: 36415; 71045; 76705; 80048; 80053; 81001; 81003; 82040; 82140; 82803; 82947; 83605; 83735; 83880; 84100; 84484; 85025; 85027; 86738; 87040; 87449; 87502; 87633; 87635; 87651; 87899; 93005; 94640; 97110; 97116; 97162; 97530; 99285; J0616; J0696; J1160; J1163; J1650; J1720; J1938; J2543; J3373; J3475; J7120; P9047

== ENCOUNTER 2024-12-26 21:52 | Outpatient (BNV) | payer MEDICARE, OTHER, SELFPAY | END 2025-01-02 14:20 | PROVIDERS: Admitting Provider Hospitalist; Emergency Provider Student in an Organized Health Care Education/Training Program; PCP Internal Medicine; Visit Provider Radiology Diagnostic Radiology | DX: J90 Pleural effusion, not elsewhere classified (principal) | CPT/HCPCS: 71045 ==

== ENCOUNTER 2024-12-26 21:52 | Outpatient (BNV) | payer MEDICARE, OTHER, SELFPAY | END 2025-01-07 08:51 | PROVIDERS: Admitting Provider Hospitalist; Emergency Provider Student in an Organized Health Care Education/Training Program; PCP Internal Medicine; Visit Provider Radiology Diagnostic Radiology | DX: R09.02 Hypoxemia (principal) | CPT/HCPCS: 71045 ==

== ENCOUNTER 2024-12-26 21:52 | Outpatient (BNV) | payer MEDICARE, OTHER, SELFPAY | END 2024-12-27 08:30 | PROVIDERS: Admitting Provider Hospitalist; Emergency Provider Student in an Organized Health Care Education/Training Program; Visit Provider Radiology Diagnostic Radiology | DX: R16.0 Hepatomegaly, not elsewhere classified (principal) | CPT/HCPCS: 76705 ==

== ENCOUNTER 2024-12-26 21:52 | Outpatient (BNV) | payer MEDICARE, OTHER, SELFPAY | END 2024-12-29 09:35 | PROVIDERS: Admitting Provider Hospitalist; Emergency Provider Student in an Organized Health Care Education/Training Program; PCP Internal Medicine; Visit Provider Radiology Vascular & Interventional Radiology | DX: J90 Pleural effusion, not elsewhere classified (principal) | CPT/HCPCS: 71045 ==

== ENCOUNTER 2024-12-26 21:52 | Outpatient (BNV) | payer MEDICARE, OTHER, SELFPAY | END 2024-12-29 15:45 | PROVIDERS: Admitting Provider Hospitalist; Emergency Provider Student in an Organized Health Care Education/Training Program; PCP Internal Medicine; Visit Provider Internal Medicine | DX: I45.10 Unspecified right bundle-branch block (principal); I49.9 Cardiac arrhythmia, unspecified | CPT/HCPCS: 93010 ==

== ENCOUNTER → 2024-12-26 21:52 | Outpatient (BNV) | payer MEDICARE, OTHER, SELFPAY | PROVIDERS: Admitting Provider Hospitalist; Emergency Provider Student in an Organized Health Care Education/Training Program; PCP Internal Medicine; Visit Provider Internal Medicine Pulmonary Disease | DX: I50.9 Heart failure, unspecified (principal); Z95.0 Presence of cardiac pacemaker; E11.9 Type 2 diabetes mellitus without complications; I48.91 Unspecified atrial fibrillation; J96.01 Acute respiratory failure with hypoxia | CPT/HCPCS: 99232 ==

== ENCOUNTER → 2024-12-26 21:52 | Outpatient (BNV) | payer MEDICARE, OTHER, SELFPAY | PROVIDERS: Admitting Provider Hospitalist; Emergency Provider Student in an Organized Health Care Education/Training Program; PCP Internal Medicine; Visit Provider Student in an Organized Health Care Education/Training Program | DX: J96.01 Acute respiratory failure with hypoxia (principal); J18.9 Pneumonia, unspecified organism | CPT/HCPCS: 99223; 99233; 99499 ==

== ENCOUNTER → 2024-12-26 21:52 | Outpatient (BNV) | payer MEDICARE, OTHER, SELFPAY | PROVIDERS: Admitting Provider Hospitalist; Emergency Provider Student in an Organized Health Care Education/Training Program; PCP Internal Medicine; Visit Provider Internal Medicine Critical Care Medicine | DX: I50.9 Heart failure, unspecified (principal); J96.01 Acute respiratory failure with hypoxia | CPT/HCPCS: 99291 ==

== ENCOUNTER → 2024-12-26 23:59 | Outpatient (BNV) | payer MEDICARE, OTHER, SELFPAY ==
--- NOTE | 2024-12-27 15:58 | MHC.OFFVIS ---
Intake Visit Reasons: Remote device check- Medtronic Allergies prednisone Allergy (Unknown, Verified 12/26/24 20:22) [facility] Medical History (Updated 12/27/24 @ 15:59 by Bolivar Helton MD) Cardiac pacemaker in situ Arthritis Chronic heart disease Synovial cyst of popliteal space [Chandra], right knee Right leg swelling Left scapholunate ligament tear Rupture of distal biceps tendon Class 1 obesity with body mass index (BMI) of 31.0 to 31.9 in adult Rotator cuff tear, left Swelling of left elbow Localized swelling of left forearm Left arm swelling Leg swelling Dysuria Duodenal ulcer Aortic stenosis Speaking difficulty TIA (transient ischemic attack) Insomnia Hospital discharge follow-up History of echocardiogram Hypertriglyceridemia Tubular adenoma Dyspnea on exertion Obesity (BMI 30-39.9) Right shoulder injury Right shoulder pain Cough Raynaud disease Edema Hyperlipemia HTN (hypertension) Type 2 diabetes mellitus PAF (paroxysmal atrial fibrillation) Surgical History S/P TAVR (transcatheter aortic valve replacement) History of colonoscopy (~01/04/20) History of cardiac cath History of cataract surgery Family History Father No problems noted. Mother No problems noted. Paternal Grandfather CVD (cardiovascular disease) Paternal Grandmother No problems noted. Maternal Grandfather CVD (cardiovascular disease) Maternal Grandmother No problems noted. 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 Pacemaker function is adequate. Increased burden of atrial fibrillation noted but overall burden in his add 0.5% [id number] Cardiac Device Interrogation, pacemaker Procedure code (CPT) selection complete Assessment & Plan Assessment & Plan (1) Cardiac pacemaker in situ: Comment: Medtronic dual chamber for post TAVR AV block and tachy-yuridia. 06/2024 Code(s): Z95.0 - Presence of cardiac pacemaker Category: Medical Plan: See above Coding Level of Care Code Procedure Only Diagnoses Cardiac pacemaker in situ Z95.0 CPT Codes Cardiac Device Check - Cardiac Device 12: [id number] Cardiac Device Interrogation, pacemaker ([id number])
== END ==
PROVIDERS: PCP Internal Medicine; Visit Provider Internal Medicine Cardiovascular Disease
DX: I48.91 Unspecified atrial fibrillation (principal); Z95.0 Presence of cardiac pacemaker; Z98.890 Other specified postprocedural states; I44.0 Atrioventricular block, first degree; I45.10 Unspecified right bundle-branch block; I49.1 Atrial premature depolarization
CPT/HCPCS: 93010; 93294

== ENCOUNTER 2025-01-28 14:25 | Outpatient (AMB) | payer MEDICARE, OTHER, SELFPAY ==
--- NOTE | 2025-01-28 14:21 | A.OFFPC_ITS ---
Intake Visit Reasons: TCM Intake Note: Visit Reason: TCM Intake Note: Patient is here for hospital discharge follow up. Patient was discharged from [facility] Lead Software Architect Required: No Casting Operator Helper: Not Required per policy Accompanied by: Self / Same As Patient Allergies prednisone Allergy (Unknown, Verified 01/28/25 14:45) GI Medication List - Last Reconciled 01/28/25 by Katherin Slade PA-C acetaminophen 650 mg PO Q8H PRN albuterol sulfate 90 mcg/actuation 1 inh inhalation QID PRN atorvastatin 40 mg PO BEDTIME cholecalciferol (vitamin D3) 25 mcg PO DAILY cyclosporine 0.1% 1 drp ophthalmic (eye) BID ferrous sulfate 325 mg PO DAILY furosemide 40 mg See Protocol PO BID@0900,1800 gabapentin 300 mg PO BID leg brace (Knee Brace Large-XLarge) Knee brace extra large lifitegrast 5% (Xiidra) 1 drp ophthalmic (eye) BID metoprolol succinate ER (Toprol XL) 50 mg PO DAILY miscellaneous medical supply Sling for left arm shoulder, elbow, wrist wear daily omeprazole 20 mg PO BID@0630,1630 peg [id number]-docdtqdc 1-0.2-0.2 % (Artificial Tears ([id number])) 2 drps ophthalmic (eye) Q4H PRN rivaroxaban (Xarelto) 20 mg PO DAILY sitagliptin phosphate (Januvia) 100 mg PO DAILY tramadol 50 mg PO DAILY PRN Tobacco use date assessed: 01/28/25 Dental Screening Dental Screen Date: 01/28/25 Did you have a dental visit in the last 12 months?: Yes Did you have a dental problem in the last 6 months where you did not have access to dental care?: No Was dental information given to patient?: Patient has dentist HPI [facility] Comments History of Present Illness Details Patient presents to the office for a TCM visit. Date of admission: 12/26/24 Date of discharge: 01/08/2025 This is a Follow-up from admission at [facility]: 79-year-old male with a past medical his tory of HTN, HLD, diabetes, paroxysmal AFib, aortic stenosis status post TAVR, TIA, duodenal ulcer, obesity, SVT, history of cardiac pacemaker,; presented to the hospital with a chief complaint of cough and shortness of breath. Patient mentioned that over the past few days he has been having sore throat. Has been having cough with occasional sputum production. Reports having shortness of breath on exertion. Denies any chest pain. Denies any nausea vomiting or diarrhea. Denies any urinary symptoms. Review of all other systems is negative except mentioned above ER course: Per ER team, patient on presentation noted to be febrile to 104 F; exam was b enign; mildly tachypneic; chest x-ray showed patchy infiltrate concerning for pneumonia. Given antibiotics. Patient qualified for sepsis. Received sepsis fluids. Blood pressure within the soft side. Hospital Course/Discharge Summary: 79-year-old male, with a history of HTN, type 2 diabetes mellitus, ischemic CHF status post PPM, aortic stenosis s/p TAVR, presented to [facility] with dyspnea on 12/26/2024, then admitted to [facility] until 01/08/2025 with acute respiratory failure 2/2 pneumonia and CHF exacerbation, course c/b AFib RVR with hypotension s/p MICU transfer for acute hypoxic respiratory failure, transfer to medical floor (12/31). Multifactorial acute hypoxic respiratory failure due to Pneumonia and CHF.. Pneumonia and CHF have been treated but remains on O2 at 2 liters and will wean as edith. He has completed antibiotics therapy with Ceftriaxone and Azithro and has been transition from IV Lasix to PO lasix. AFib RVR--RVR resolved, on metoprolol 100 bid and Xarelto 20 mg daily for stroke prevention T2 DM on sliding scale, to resume sitaglipitin upon discharge HLD statin GERD - omeprazole 20 mg b.i.d. p.o. Discharged to/Current Location: [facility] in [place] then discharged 01/18/25 then went home Lives with: Diagnosis: Congestive heart failure; acute hypoxic respiratory failure; pneumonia; physical deconditioning Procedures performed: Chest x-ray New medications: No new medications Discontinued medications: No medications were discontinued Change medications/dosing: Lasix was changed to 40 mg from 20 mg daily Pending labs: No pending labs Pending diagnostic test: No pending diagnostic test Any Follow-up Labs required? Due to patient increasing Lasix from 20-40 will assess the patient's kidney function, magnesium and BNP Any Follow-up Diagnostic test required? Will repeat patient's chest x-ray How are you feeling? Patient feels good. Reports he has been urinating and having to go to the bathroom very frequently which is having him not able to leave the house which is very frustrating for him he can even go to the grocery store. Patient requesting to decrease Lasix dose at this time. No SOB, No ARELLANO and reports no other symptoms at this time. Are you in any pain or discomfort? None Do you have any questions about your condition or discharge instructions? Not at this time Were you able to get your medications filled? Yes filled all medications Do you have any questions about your medications? yes wanted to take less Lasix 20 mg and when he feel SOB, Cough ARELLANO pt gonna take 40 mg for 3 days. Any referrals required? None at this time Were you able to schedule your follow-up appointment? able to schedule appointment's If home health was ordered, have they contact you? No home health aide was ordered and patient not interested at this time. Any outpatient services, if so, are you scheduled? PT, OT and yes have contacted patient already Are there any additional resources like transportation you might need during her recovery? not at this time - VNA? twice weekly already in place - MDS COORDINATOR? Not interested at this time - Meals on wheels? Not interested at thi s time Educational need/resources: What support system do you have? , 4 Children and two live near and two in [facility] Medical History Aphasia Acute hypoxic respiratory failure Pneumonia Cardiac pacemaker in situ Arthritis Chronic heart disease Synovial cyst of popliteal space [Chandra], right knee Right leg swelling Left scapholunate ligament tear Rupture of distal biceps tendon Class 1 obesity with body mass index (BMI) of 31.0 to 31.9 in adult Rotator cuff tear, left Swelling of left elbow Localized swelling of left forearm Left arm swelling Leg swelling Dysuria Duodenal ulcer Aortic stenosis Speaking difficulty TIA (transient ischemic attack) Insomnia Hospital discharge follow-up History of echocardiogram Hypertriglyceridemia Tubular adenoma Dyspnea on exertion Obesity (BMI 30-39.9) Right shoulder injury Right shoulder pain Cough Raynaud disease Edema Hyperlipemia HTN (hypertension) Type 2 diabetes mellitus PAF (paroxysmal atrial fibrillation) Surgical History S/P TAVR (transcatheter aortic valve replacement) History of colonoscopy (~01/04/20) History of cardiac cath History of cataract surgery Family History Father No problems noted. Mother No problems noted. Paternal Grandfather CVD (cardiovascular disease) Paternal Grandmother No problems noted. Maternal Grandfather CVD (cardiovascular disease) Maternal Grandmother No problems noted. 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 1. Little interest or pleasure in doing things: not at all 2. Feeling down, depressed, or hopeless: not at all 3. Trouble falling or staying asleep, or sleeping too much: not at all 4. Feeling tired or having little energy: not at all 5. Poor appetite or overeating: not at all 6. Feeling bad about yourself - or that you are a failure or have let yourself or your family down: not at all 7. Trouble concentrating on things, such as reading the newspaper or watching television: not at all 8. Moving or speaking so slowly that other people could have noticed. Or the opposite - being so fidgety or restless that you have been moving around a lot more than usual: not at all 9. Thoughts that you would be better off or of hurting yourself in some way: not at all Total score: 0 Depression Screening Interpretation: Negative Depression Screening Done: Yes 51984 - PHQ-9 Billing: Yes Source: Developed by Drs. Anselmo Gill, Kimberly Salazar, Will Kasper and colleagues, with an educational archana from [employer]. Thrive Questionnaire Date Thrive assessed: 01/28/25 I am a: Patient What is your living situation today?: I have a steady place to live Within the past 12 months, did the food you bought not last and you didn't have the money to get more?: Never true Within the past 12 months, did you worry whether your food would run out before you got money to buy more?: Never true Do you have trouble paying for medicines?: No Do you have trouble getting transportation to medical appointments?: No Do you have trouble paying your heating and electricity bill?: No Do you have trouble taking care of your child, family member or friend?: No Do you have trouble with day-to-day activities such as bathing, preparing meals, shopping, managing finances, etc.?: No Are you currently unemployed and looking for a job?: No Are you interested in more education?: No Please select the resources that you would like help with: None Currently or been in a relationship where the following occur: No concerns reported THRIVE Score: 0 AUDIT C Alcohol Use Questionnaire (AUDIT-C) 1. How often do you have a drink containing alcohol?: Monthly or less 2. How many drinks containing alcohol do you have on a typical day when you are drinking?: 1 or 2 3. How often do you have six or more drinks on one occasion?: Never Total Score: 1 Score Reviewed/Action Taken: No JEANA-7 AMB Questionnaire JEANA-7 Date JEANA - 7 assessed: 01/28/25 Feeling nervous, anxious, or on edge: 0 = Not at all Not being able to stop or control worryin = Not at all Worrying too much about different things: 0 = Not at all Trouble relaxin = Not at all Being so restless that it is hard to sit still: 0 = Not at all Becoming easily annoyed or irritable: 0 = Not at all Feeling afraid as if something awful might happen: 0 = Not at all Total JEANA-7 score (0-4 normal; 5-9 mild; 10-14 moderate; 15-21 severe): 0 Source: Developed by Drs. Anselmo Gill, Kimberly Salazar, Will Kasper and colleagues, with an educational archana from [employer]. JEANA-7 Assessment Billing JEANA-7 Assessment Tool: JEANA-7 Assessment 50900 Review of Systems Const All systems reviewed & are unremarkable except as noted in HPI and below Physical exam (Primary Care) Vital Signs: Vitals signs have been reviewed. Tobacco/Smoking Status: Tobacco use Status Tobacco use date assessed 01/28/25 01/28/25 14:28 Patient Tobacco Use Status Former Tobacco user 01/28/25 14:28 Tobacco use type Cigarette 01/28/25 14:28 e-Cigarette/Vaping Use Never Used 01/28/25 14:28 PHQ-9: PHQ-9 Score PHQ-9: Total score 0 01/28/25 14:28 Depression Screening Interpretation: Negative Thrive Assessment: Date of Thrive Assessment Date Thrive assessed 01/28/25 01/28/25 14:28 Currently or been in a relationship where the following occur: No concerns reported Telehealth Telehealth Telehealth Platform: Telephone Location of provider rendering services: practice address Location of patient: address on file Patient Identification confirmed using: Name, : Yes Telehealth method: voice only Patient verbally consented to treatment: Yes Patient verbally consented to billing insurance company: Yes Patient informed of any privacy concerns related to visit: Yes Minutes spent on Phone/Video with Pt.: 45 Coding Level of Care Code TCM High MDM <= 14 days Complex EM visit Add On G2211 Diagnoses Hospital discharge follow-up Z09 CHF (congestive heart failure) I50.9 Additional Codes JEAAN-7 Assessment Billing - JEANA-7 Assessment Tool: JEANA-7 Assessment 01831 ([id number]) PHQ-9 - 94593 - PHQ-9 Billing: Yes ([id number]) Time Spent (min) 45 Comment This was a telehealth call Assessment & Plan Assessment & Plan (1) Hospital discharge follow-up: Code(s): Z09 - Encounter for follow-up examination after completed treatment for conditions other than malignant neoplasm Category: Medical Plan: Patient doing well since discharge. Denies any acute complaints. Taking all medications and were able to feel all his medications. Has scheduled follow- ups. Has VNA, PT and OT in place. Not interested in home health aides. Doing well at home. (2) CHF (congestive heart failure): Code(s): I50.9 - Heart failure, unspecified Category: Medical Plan: Will rechecked the patient's labs. Instructed patient to take 20 mg of Lasix daily and whenever he starts feeling cough, shortness of breath or dyspnea on exertion that he should start taking 40 mg of Lasix daily. Condition is chronic and stable will continue to monitor. Plan Patient doing well since hospital discharge. Taking all medications. Scheduled follows. Has VNA, PT and OT in place. Not interested in home health aide doing well with at home. For the patient's congestive heart failure patient instructed to take 20 mg of Lasix daily due to increased urinary frequency. Instructed patient to take 40 mg whenever he starts feeling cough, shortness of breath or dyspnea on exertion or any leg swelling. Patient to follow up with Cardiology as scheduled. Orders: Orders Comprehensive Met. Panel Today Z00.00 - Encounter for general adult medical examination without abnormal findings Magnesium Today Z00.00 - Encounter for general adult medical examination without abnormal findings NT Pro B Type Natriuretic Pept Today I51.9 - Heart disease, unspecified XR chest 2V Today I51.9 - Heart disease, unspecified UA CC w/rflx Micro + Cult Today Z00.00 - Encounter for general adult medical examination without abnormal findings Patient Instructions: Patient to continue taking all his medications as prescribed. Lasix to be reduced to 20 mg and increase to 40 mg whenever the patient has shortness of breath, dyspnea on exertion, leg swelling or a cough. Patient to follow up with Cardiology as scheduled.
--- OUTSIDE RECORDS SUMMARY | 2025-01-28 16:17 | XMS_ITS | Clinical Summary ---
Author Organization [facility] Address [address] [place] [address] [place] [id number] Phone Care Team Providers Care Boiler Shop Supervisor Name Role Phone Pcp, Unknown Primary Care Provider Unavailabl e Encounters Date Type Department Care Team Description 01/16/2025 6:15 AM EDT - 01/16/2025 11:59 PM EDT Hospital Encounter [facility] [address] [place] [address] Kvng Leone MD Discharge Disposition: Home or Self Care 01/16/2025 Transcribe Orders [facility] [address] [place] [address] Kvng Leone MD Atrial fibrillation, unspecified type (Primary Dx) 01/10/2025 Transcribe Orders [facility] [address] [place] [address] Kvng Leone MD Congestive heart failure, unspecified HF chronicity, unspecified heart failure type (Primary Dx); Atrial fibrillation, unspecified type 01/09/2025 3:03 PM EDT - 01/09/2025 11:59 PM EDT Hospital Encounter [facility] [address] [place] [address] Kvng Leone MD Discharge Disposition: Home or Self Care 01/09/2025 Transcribe Orders [facility] [address] [place] [address] Kvng Leone MD Congestive heart failure, unspecified HF chronicity, unspecified heart failure type (Primary Dx); Atrial fibrillation, unspecified type from Last 3 Months Social History Tobacco Use Types Packs/Day Years Used Date Smoking Tobacco: Never Assessed Education Answer Date Recorded Are you interested in more education? Not on rey e 01/09/2025 Are you concerned about learning? Not on file 01/09/2025 No 01/09/2025 No 01/09/2025 Digital Access Answer Date Recorded No 01/09/2025 No 01/09/2025 Reliable internet access at home? Not on file 01/09/2025 Device with a working camera? Not on file Sex and Gender Information Value Date Recorded Sex Assigned at Not on file Legal Sex Male 1:40 PM EDT Gender Identity Not on file Sexual Orientation Not on file Plan of Treatment Not on file Medical Devices Not on file Procedures Procedure Name Priority Date/Time Associated Diagnosis Comments COMPREHENSIVE METABOLIC PANEL Routine 01/16/2025 5:30 AM EDT Atrial fibrillation, unspecified type Congestive heart failure, unspecified HF chronicity, unspecified heart failure type CBC AND DIFFERENTIAL Routine 01/16/2025 5:30 AM EDT Atrial fibrillation, unspecified type CBC AND DIFFERENTIAL Routine 01/09/2025 6:57 AM EDT Atrial fibrillation, unspecified type Congestive heart failure, unspecified HF chronicity, unspecified heart failure type from Last 3 Months Results * (ABNORMAL) Comprehensive metabolic panel (01/16/2025 5:30 AM EDT) SODIUM 134 133 - 146 mmol/L [facility] POTASSIUM 4.3 3.3 - 5.1 mmol/L [facility] CHLORIDE 97 96 - 108 mmol/L [facility] CO2 26 21 - 35 mmol/L [facility] BUN 20(H) 6 - 19 mg/dL [facility] CREATININE 1.20 0.5 - 1.5 mg/dL [facility] GLUCOSE 109(H) 70 - 99 mg/dL [facility] ALBUMIN 3.7(L) 3.9 - 4.8 g/dL [facility] TOTAL PROTEIN 6.9 6.5 - 8.0 g/dL [facility] CALCIUM 9.3 8.4 - 10.3 mg/dL [facility] ALKALINE PHOSPHATASE 214(H) 39 - 117 U/L [facility] TOTAL BILIRUBIN 0.5 0.0 - 1.2 mg/dL [facility] AST 20 0 - 37 U/L [facility] ALT 16 0 - 40 U/L [facility] GLOBULIN 3.2 1 - 4.8 g/dL [facility] EGFR 62 >59 mL/min/1.7 3m2 [facility] Comment:Estimated glomerular filtration rate calculated using the CKD-EPI refit equation. ANION GAP 15 10 - 20 mmol/L [facility] Blood 01/16/2025 5:30 AM EDT 01/16/2025 6:21 AM EDT us Kvng Leone MD LAB BLOOD ORDERABLES Final Resul t [facility] [address] [place] [address] * (ABNORMAL) CBC and differential (01/16/2025 5:30 AM EDT) Only the most recent of2 resultswithin the time period is included. WBC 7.84 4.00 - 11.00 K/uL [facility] RBC 3.16(L) 4.50 - 5.90 M/uL [facility] HGB 9.5(L) 13.5 - 17.5 g/dL [facility] HCT 29.7(L) 41.0 - 53.0 % [facility] PLT 285 150 - 450 K/uL [facility] MCV 94.0 80.0 - 100.0 fL [facility] MCH 30.1 27.0 - 31.0 pg [facility] MCHC 32.0 32.0 - 36.0 g/dL [facility] RDW 14.0 11.5 - 14.5 % [facility] MPV 10.0 8.4 - 12.0 fL [facility] NRBC 0.00 0.00 /100 WBCs [facility] ABSOLUTE NRBC 0.00 0.00 K/uL [facility] DIFF METHOD Auto [facility] NEUTS 49.2 48.0 - 76.0 % [facility] LYMPHS 30.4 18.0 - 41.0 % [facility] MONOS 15.3(H) 4.0 - 11.0 % [facility] EOS 3.8 0.0 - 5.0 % [facility] BASOS 0.9 0.0 - 1.5 % [facility] Granulocytes, immature (%) 0.4 0.0 - 0.9 % [facility] ABSOLUTE NEUTS 3.86 1.92 - 7.60 K/uL [facility] ABSOLUTE LYMPHS 2.38 0.72 - 4.10 K/uL [facility] ABSOLUTE MONOS 1.20(H) 0.16 - 1.10 K/uL [facility] ABSOLUTE EOS 0.30 0.00 - 0.50 K/uL [facility] ABSOLUTE BASOS 0.07 0.00 - 0.15 K/uL [facility] Granulocytes, immature 0.03 0.00 - 0.09 K/uL [facility] Blood 01/16/2025 5:30 AM EDT 01/16/2025 6:21 AM EDT us Kvng Leone MD LAB BLOOD ORDERABLES Final Resul t [address] [id number] from Last [address] [place] [address] [place] [id number] [place], [place] [id number] [place], [place] [address] [facility] HMO Care Teams Boiler Shop Supervisor Relationship Specialty Start Date End Date Pcp, Unknown PCP - General 01/09/25 Additional Source Comments The information contained in this document represents components of the legal health record. It is not the complete legal health record.[facility]
== END 2025-01-28 15:03 | disposition home or self-care (01) ==
LOC: HO.HMCSH 14:25
PROVIDERS: PCP Internal Medicine; Visit Provider Physician Assistant Medical
DX: I50.9 Heart failure, unspecified (principal); Z09 Encounter for follow-up examination after completed treatment for conditions other than malignant neoplasm

== ENCOUNTER → 2025-01-28 14:25 | Outpatient (BNVA) | payer MEDICARE, OTHER, SELFPAY | PROVIDERS: PCP Internal Medicine; Visit Provider Physician Assistant Medical | DX: R06.02 Shortness of breath (principal); R05.9 Cough, unspecified; I50.9 Heart failure, unspecified; I48.91 Unspecified atrial fibrillation; E11.9 Type 2 diabetes mellitus without complications; E78.5 Hyperlipidemia, unspecified; Z09 Encounter for follow-up examination after completed treatment for conditions other than malignant neoplasm; Z95.0 Presence of cardiac pacemaker; Z79.899 Other long term (current) drug therapy; Z99.81 Dependence on supplemental oxygen | CPT/HCPCS: 96127 ==

== ENCOUNTER 2025-02-26 13:31 | Outpatient (AMB) | payer MEDICARE, OTHER, SELFPAY ==
--- NOTE | 2025-02-26 13:34 | MHC.OFFVIS ---
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 Required: No Allergies prednisone Allergy (Unknown, Verified 01/28/25 14:45) GI Medication List - Last Reconciled 02/26/25 by Bolivar Helton MD acetaminophen 650 mg PO Q8H PRN albuterol sulfate 90 mcg/actuation 1 inh inhalation QID PRN atorvastatin 40 mg PO BEDTIME cholecalciferol (vitamin D3) 25 mcg PO DAILY cyclosporine 0.1% 1 drp ophthalmic (eye) BID ferrous sulfate 325 mg PO DAILY furosemide 20 mg See Protocol PO ONCE gabapentin 300 mg PO BID leg brace (Knee Brace Large-XLarge) Knee brace extra large lifitegrast 5% (Xiidra) 1 drp ophthalmic (eye) BID metoprolol succinate ER 50 mg PO DAILY miscellaneous medical supply Sling for left arm shoulder, elbow, wrist wear daily omeprazole 20 mg PO BID@0630,1630 peg [id number] 1-0.2-0.2 % (Artificial Tears ([id number])) 2 drps ophthalmic (eye) Q4H PRN rivaroxaban (Xarelto) 20 mg PO DAILY sitagliptin phosphate (Januvia) 100 mg PO DAILY tramadol 50 mg PO DAILY PRN HPI Comments Details: Thaddeus comes for follow-up. Patient was recently admitted in November with pneumonia but also noted to have significantly elevated BNP consistent with congestive heart failure. He was also in rapid atrial fibrillation. However treated ICD and subsequently released home. He is currently on low-dose Lasix at 20 mg. Continues to have exertional shortness of breath going up a flight of stairs. Also has intermittently leg edema. Denies any prolonged palpitation since discharge. Continues to have cough mi. No clear orthopnea or PND. No lightheadedness, syncope. No bleeding issues or neurologic events. [facility] Medical History (Updated 02/26/25 @ 13:57 by Bolivar Helton MD) Cardiac pacemaker in situ PAF (paroxysmal atrial fibrillation) Aphasia Acute hypoxic respiratory failure Pneumonia Arthritis Chronic heart disease Synovial cyst of popliteal space [Chandra], right knee Right leg swelling Left scapholunate ligament tear Rupture of distal biceps tendon Class 1 obesity with body mass index (BMI) of 31.0 to 31.9 in adult Rotator cuff tear, left Swelling of left elbow Localized swelling of left forearm Left arm swelling Leg swelling Dysuria Duodenal ulcer Aortic stenosis Speaking difficulty TIA (transient ischemic attack) Insomnia Hospital discharge follow-up History of echocardiogram Hypertriglyceridemia Tubular adenoma Dyspnea on exertion Obesity (BMI 30-39.9) Right shoulder injury Right shoulder pain Cough Raynaud disease Edema Hyperlipemia HTN (hypertension) Type 2 diabetes mellitus Surgical History (Updated 02/26/25 @ 13:57 by Bolivar Helton MD) S/P TAVR (transcatheter aortic valve replacement) History of colonoscopy (~01/04/20) History of cardiac cath History of cataract surgery Family History Father No problems noted. Mother No problems noted. Paternal Grandfather CVD (cardiovascular disease) Paternal Grandmother No problems noted. Maternal Grandfather CVD (cardiovascular disease) Maternal Grandmother No problems noted. 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 Cognitive needs: Yes (cane) Hearing needs: Yes (b/l hearing aids) Vision needs: Yes (reading glasses) Review of Systems Const Denies chills, Denies fatigue, Denies fever(s), Denies frequent falls, Denies weakness, Denies weight gain and Denies weight loss ENT Denies dizziness Card Denies chest pain, Denies leg edema, Denies lightheadedness, Denies palpitations, Denies dyspnea, Denies dyspnea on exertion, Denies orthopnea and Denies other (loss of consciousness) Resp Denies cough, Denies dyspnea and Denies dyspnea on exertion GI Denies hematochezia and Denies change in stool character Musc Denies abnormal gait, Denies muscle weakness, Denies numbness, Denies radiating pain into limb and Denies tingling Neuro Denies abnormal gait, Denies dizziness, Denies frequent falls, Denies numbness, Denies tingling and Denies weakness Endo Denies fatigue and Denies palpitations Physical Exam Vital Signs: Last Vital Signs Pulse 70 02/26/25 13:35 BP 120/72 02/26/25 13:35 BMI result Body Mass Index 30.9 Const General: cooperative, comfortable, no acute distress, alert, awake and tired appearing Nutritional Appearance: overweight and other (Frail elderly man) Orientation/consciousness: patient oriented x3 Limitations: ambulation with cane Neck Neck: Yes trachea midline, Yes supple and Yes no JVD Resp Effort & Inspection: normal respiratory effort Auscultation: crackles (Right greater than left) Cardio Jugular venous distension: no JVD Palpation: normal PMI Rate: regular rate Rhythm: regular rhythm Heart sounds: S1 normal heart sound present, S2 normal heart sound present, no click, no gallops and no murmurs GI Auscultation: normal bowel sounds Skin General skin exam: no rashes or lesions noted and ecchymosis Neuro General: patient oriented x3 and no focal motor deficits Extrem General: Yes no clubbing, cyanosis or edema Psych Appearance: grossly normal Office Procedures Cardiac Device Check Cardiac Device Check Details: Dual-chamber Medtronic pacemaker in place. Programmed in MVP mode with heart rate of 60 beats per minute. Longest episode of atrial fibrillation happening on December 29 when he was admitted to the hospital. Since then no significant atrial fibrillation. Atrial ventricular sensing is excellent. Atrial ventricular lead impedance is stable. Pacing thresholds adequate and reprogrammed to optimize battery life with providing adequate safety. Battery life is excellent [id number] Cardiac Device Check, pacemaker dual lead Procedure code (CPT) selection complete Assessment & Plan Assessment & Plan (1) PAF (paroxysmal atrial fibrillation): Code(s): I48.0 - Paroxysmal atrial fibrillation Category: Medical Plan: Episode of paroxysmal atrial fibrillation in the setting of acute pneumonia could have also contributed to his heart failure syndrome. Overall currently no recurrent atrial fibrillation by pacer telemetry. Will continue monitor by pacer telemetry. Continue current therapy with Xarelto 20 mg as well as metoprolol 50 mg. Avoidance of stimulants was discussed. If has persistent recurrent atrial fibrillation with symptoms will pursue antiarrhythmic drug therapy. 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 06/2024 Code(s): Z95.0 - Presence of cardiac pacemaker Category: Medical Plan: Cardiac pacemaker in-situ, working well. Reprogrammed for adequate function. Will follow up in 6 months time. Continue monitor remotely for pacer function. (3) S/P TAVR (transcatheter aortic valve replacement): Comment: 07/05/24. 34 mm Evolut Code(s): Z95.2 - Presence of prosthetic heart valve Category: Surgical Plan: Status post transcatheter aortic valve replacement, working well clinically. Continue oral anticoagulation with Xarelto. SBE prophylaxis as per ACC/aha guidelines. Continue vascular risk factor modification. (4) (HFpEF) heart failure with preserved ejection fraction: Code(s): I50.30 - Unspecified diastolic (congestive) heart failure Category: Medical Plan: Heart failure preserved ejection fraction with recent decompensation in his setting of pneumonia as well as atrial fibrillation. Currently clinically appears to be mildly fluid overloaded. Advised to take increase Lasix for next 2-3 days and cut back down to 20 mg once his fluid status improved. He understands. Advised to call me with any worsening symptoms. Will follow up in the clinic in 6 months time, sooner PRN. Thank you for allowing me to partake in his care Medications: Changed From furosemide 40 mg See Protocol PO BID@0900,1800 180 tabs 0RF To furosemide 20 mg See Protocol PO ONCE Coding Level of Care Code Tele Est Pt Level 4 (17345) Complex EM visit Add On G2211 Diagnoses PAF (paroxysmal atrial fibrillation) I48.0 Cardiac pacemaker in situ Z95.0 S/P TAVR (transcatheter aortic valve replacement) Z95.2 (HFpEF) heart failure with preserved ejection fraction I50.30 CPT Codes Cardiac Device Check - Cardiac Device 2: [id number]-[id number] Cardiac Device Check, pacemaker dual lead ([id number])
[2025-02-26 13:35] VITALS: BP 120/72; PULSE 70; BMI 30.9
--- OUTSIDE RECORDS SUMMARY | 2025-02-26 17:30 | XMS_ITS | Clinical Summary ---
Author Organization [facility] Address [address] [place] [address] [place] [id number] Phone Care Team Providers [employer] Employee Name Role Phone Pcp, Unknown Primary Care Provider Unavailabl e Encounters Date Type Department Care Team Description 01/16/2025 6:15 AM EDT - 01/16/2025 11:59 PM EDT Hospital Encounter [facility] [address] [place] [address] Kvng Leone MD Discharge Disposition: Home or Self Care 01/16/2025 Transcribe Orders [facility] [address] [place] [address] Kvng Leone MD Atrial fibrillation, unspecified type (Primary Dx) 01/10/2025 Transcribe Orders [facility] [address] [place] [address] Kvng Leone MD Congestive heart failure, unspecified HF chronicity, unspecified heart failure type (Primary Dx); Atrial fibrillation, unspecified type 01/09/2025 3:03 PM EDT - 01/09/2025 11:59 PM EDT Hospital Encounter [facility] [address] [place] [address] Kvng Leone MD Discharge Disposition: Home or Self Care 01/09/2025 Transcribe Orders [facility] [address] [place] [address] Kvng Leone MD Congestive heart failure, unspecified [...] EDT) SODIUM 134 133 - 146 mmol/L [facility] POTASSIUM 4.3 3.3 - 5.1 mmol/L [facility] CHLORIDE 97 96 - 108 mmol/L [facility] CO2 26 21 - 35 mmol/L [facility] BUN 20(H) 6 - 19 mg/dL [facility] CREATININE 1.20 0.5 - 1.5 mg/dL [facility] GLUCOSE 109(H) 70 - 99 mg/dL [facility] ALBUMIN 3.7(L) 3.9 - 4.8 g/dL [facility] TOTAL PROTEIN 6.9 6.5 - 8.0 g/dL [facility] CALCIUM 9.3 8.4 - 10.3 mg/dL [facility] ALKALINE PHOSPHATASE 214(H) 39 - 117 U/L [facility] TOTAL BILIRUBIN 0.5 0.0 - 1.2 mg/dL [facility] AST 20 0 - 37 U/L [facility] ALT 16 0 - 40 U/L [facility] GLOBULIN 3.2 1 - 4.8 g/dL [facility] EGFR 62 >59 mL/min/1.7 3m2 [facility] Comment:Estimated glomerular filtration rate calculated using the CKD-EPI refit equation. ANION GAP 15 10 - 20 mmol/L [facility] Blood 01/16/2025 5:30 AM EDT 01/16/2025 6:21 AM EDT us Kvng Leone MD LAB BLOOD ORDERABLES Final Resul t [facility] [address] [place] [address] * (ABNORMAL) CBC and differential (01/16/2025 5:30 AM EDT) Only the most recent of2 resultswithin the time period is included. WBC 7.84 4.00 - 11.00 K/uL [facility] RBC 3.16(L) 4.50 - 5.90 M/uL [facility] HGB 9.5(L) 13.5 - 17.5 g/dL [facility] HCT 29.7(L) 41.0 - 53.0 % [facility] PLT 285 150 - 450 K/uL [facility] MCV 94.0 80.0 - 100.0 fL [facility] MCH 30.1 27.0 - 31.0 pg [facility] MCHC 32.0 32.0 - 36.0 g/dL [facility] RDW 14.0 11.5 - 14.5 % [facility] MPV 10.0 8.4 - 12.0 fL [facility] NRBC 0.00 0.00 /100 WBCs [facility] ABSOLUTE NRBC 0.00 0.00 K/uL [facility] DIFF METHOD Auto [facility] NEUTS 49.2 48.0 - 76.0 % [facility] LYMPHS 30.4 18.0 - 41.0 % [facility] MONOS 15.3(H) 4.0 - 11.0 % [facility] EOS 3.8 0.0 - 5.0 % [facility] BASOS 0.9 0.0 - 1.5 % [facility] Granulocytes, immature (%) 0.4 0.0 - 0.9 % [facility] ABSOLUTE NEUTS 3.86 1.92 - 7.60 K/uL [facility] ABSOLUTE LYMPHS 2.38 0.72 - 4.10 K/uL [facility] ABSOLUTE MONOS 1.20(H) 0.16 - 1.10 K/uL [facility] ABSOLUTE EOS 0.30 0.00 - 0.50 K/uL [facility] ABSOLUTE BASOS 0.07 0.00 - 0.15 K/uL [facility] Granulocytes, immature 0.03 0.00 - 0.09 K/uL [facility] Blood 01/16/2025 5:30 AM EDT 01/16/2025 6:21 AM EDT us Kvng Leone MD LAB BLOOD ORDERABLES Final Resul t [facility] [address] [place] [address] from Last 3 Months Insurance [facility] A & [place] [address] [place] [address]O MEDICARE PART A & [place] [address] [place] [id number] MEDICARE PART A & [place] [address] [place] [id number] MEDICARE PART A & [address] [place], [place] [address]O MEDICARE PART A & B [facility] PART A & B Care Teams [employer] Employee Relationship Specialty Start Date End Date Pcp, Unknown PCP - General 01/09/25 Additional Source Comments The information contained in this document represents components of the legal health record. It is not the complete legal health record.[facility]
== END 2025-02-26 13:53 | disposition home or self-care (01) ==
LOC: HO.HCS 13:32
PROVIDERS: PCP Internal Medicine; Visit Provider Internal Medicine Cardiovascular Disease
DX: I48.0 Paroxysmal atrial fibrillation (principal); Z95.0 Presence of cardiac pacemaker; Z95.2 Presence of prosthetic heart valve; I50.30 Unspecified diastolic (congestive) heart failure
CPT/HCPCS: 93280; 99214; G2211

== ENCOUNTER → 2025-02-26 13:31 | Outpatient (BNVA) | payer MEDICARE, OTHER, SELFPAY | PROVIDERS: PCP Internal Medicine; Visit Provider Internal Medicine Cardiovascular Disease | DX: I48.0 Paroxysmal atrial fibrillation (principal); I50.30 Unspecified diastolic (congestive) heart failure; Z95.0 Presence of cardiac pacemaker; Z95.2 Presence of prosthetic heart valve | CPT/HCPCS: 93280; 99212 ==

== ENCOUNTER 2025-04-17 10:46 | Outpatient (AMB) | payer MEDICARE, OTHER, SELFPAY ==
--- NOTE | 2025-04-17 11:04 | A.OFFPC_ITS ---
Vital Signs 04/17/25 11:11 Height 5 ft 9 in Weight 215 lb BMI 31.7 BP 113/59 L Blood Pressure Location Rt brachial Position Sitting Respiration 17 Pulse 67 Pulse Source Monitor Temp 97.2 F Temp Source Temporal Artery Scan Pulse Oximetry (%) 98 Oxygen Delivery Method Room Air Intake Visit Reasons: right ear blocked Kettle Chipper Required: No Accompanied by: Self / Same As Patient Allergies prednisone Allergy (Unknown, Verified 04/17/25 11:23) GI Medication List - Last Reconciled 04/17/25 by Katherin Slade PA-C acetaminophen 650 mg PO Q8H PRN albuterol sulfate 90 mcg/actuation 1 inh inhalation QID PRN atorvastatin 40 mg PO BEDTIME cholecalciferol (vitamin D3) 25 mcg PO DAILY cyclosporine 0.1% 1 drp ophthalmic (eye) BID ferrous sulfate 325 mg PO DAILY furosemide 20 mg See Protocol PO ONCE gabapentin 300 mg PO BID leg brace (Knee Brace Large-XLarge) Knee brace extra large lifitegrast 5% (Xiidra) 1 drp ophthalmic (eye) BID metoprolol succinate ER 50 mg PO DAILY omeprazole 20 mg PO BID@0630,1630 peg [id number] 1-0.2-0.2 % (Artificial Tears ([id number])) 2 drps ophthalmic (eye) Q4H PRN rivaroxaban (Xarelto) 20 mg PO DAILY sitagliptin phosphate (Januvia) 100 mg PO DAILY tramadol 50 mg PO DAILY PRN Tobacco use date assessed: 01/28/25 Dental Screening Dental Screen Date: 01/28/25 HPI HPI Comments History of Present Illness Details History of Present Illness The patient is an 80 year old male presenting with hearing loss, specifically an inability to hear in the right ear, beginning two weeks ago. He denies fever and ear pain. Examination identified a non-infected, large cerumen impaction in the right ear. Regarding his Type 2 Diabetes Mellitus, the patient uses Januvia 100 mg daily, showing improvement in hemoglobin A1c from 6.7% in October to 6.4% today. Despite a recent hospitalization, his diabetes management has been compliant. The patient also acknowledges essential hypertension and recent unintentional weight loss. He reports cracks on his bilateral hands possibly related to eczema, with no systemic infection signs. Additionally, he mentions a scabbed, noncancerous lesion on his scalp being monitored by dermatology. Social History - The patient lives with his , who i s in stable health. - The patient may have missed his annual dermatology appointment this year. [facility] Medical History (Updated 04/17/25 @ 13:52 by Katherin Slade PA-C) HTN (hypertension) Eczema Type 2 diabetes mellitus with hemoglobin A1c goal of less than 7.0% Impacted cerumen, right ear Skin lesion Cardiac pacemaker in situ PAF (paroxysmal atrial fibrillation) Aphasia Acute hypoxic respiratory failure Pneumonia Arthritis Chronic heart disease Synovial cyst of popliteal space [Chandra], right knee Right leg swelling Left scapholunate ligament tear Rupture of distal biceps tendon Class 1 obesity with body mass index (BMI) of 31.0 to 31.9 in adult Rotator cuff tear, left Swelling of left elbow Localized swelling of left forearm Left arm swelling Leg swelling Dysuria Duodenal ulcer Aortic stenosis Speaking difficulty TIA (transient ischemic attack) Insomnia Hospital discharge follow-up History of echocardiogram Hypertriglyceridemia Tubular adenoma Dyspnea on exertion Obesity (BMI 30-39.9) Right shoulder injury Right shoulder pain Cough Raynaud disease Edema Hyperlipemia Type 2 diabetes mellitus Surgical History S/P TAVR (transcatheter aortic valve replacement) History of colonoscopy (~01/04/20) History of cardiac cath History of cataract surgery Family History Father No problems noted. Mother No problems noted. Paternal Grandfather CVD (cardiovascular disease) Paternal Grandmother No problems noted. Maternal Grandfather CVD (cardiovascular disease) Maternal Grandmother No problems noted. 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 1. Little interest or pleasure in doing things: not at all 2. Feeling down, depressed, or hopeless: not at all 3. Trouble falling or staying asleep, or sleeping too much: not at all 4. Feeling tired or having little energy: not at all 5. Poor appetite or overeating: not at all 6. Feeling bad about yourself - or that you are a failure or have let yourself or your family down: not at all 7. Trouble concentrating on things, such as reading the newspaper or watching television: not at all 8. Moving or speaking so slowly that other people could have noticed. Or the opposite - being so fidgety or restless that you have been moving around a lot more than usual: not at all 9. Thoughts that you would be better off or of hurting yourself in some way: not at all Total score: 0 Depression Screening Interpretation: Negative Depression Screening Done: Yes [id number] - PHQ-9 Billing: Yes Source: Developed by Drs. Anselmo Gill, Kimberly Salazar, Will Kasper and colleagues, with an educational archana from [employer]. Thrive Questionnaire Date Thrive assessed: 01/28/25 I am a: Patient What is your living situation today?: I have a steady place to live Within the past 12 months, did the food you bought not last and you didn't have the money to get more?: Never true Within the past 12 months, did you worry whether your food would run out before you got money to buy more?: Never true Do you have trouble paying for medicines?: No Do you have trouble getting transportation to medical appointments?: No Do you have trouble paying your heating and electricity bill?: No Do you have trouble taking care of your child, family member or friend?: No Do you have trouble with day-to-day activities such as bathing, preparing meals, shopping, managing finances, etc.?: No Are you currently unemployed and looking for a job?: No Are you interested in more education?: No Please select the resources that you would like help with: None Currently or been in a relationship where the following occur: No concerns reported THRIVE Score: 0 AUDIT C Alcohol Use Questionnaire (AUDIT-C) 1. How often do you have a drink containing alcohol?: Monthly or less 2. How many drinks containing alcohol do you have on a typical day when you are drinking?: 1 or 2 3. How often do you have six or more drinks on one occasion?: Never Total Score: 1 Score Reviewed/Action Taken: No JEANA-7 AMB Questionnaire JEANA-7 Date JEANA - 7 assessed: 01/28/25 Feeling nervous, anxious, or on edge: 0 = Not at all Not being able to stop or control worryin = Not at all Worrying too much about different things: 0 = Not at all Trouble relaxin = Not at all Being so restless that it is hard to sit still: 0 = Not at all Becoming easily annoyed or irritable: 0 = Not at all Feeling afraid as if something awful might happen: 0 = Not at all Total JEANA-7 score (0-4 normal; 5-9 mild; 10-14 moderate; 15-21 severe): 0 Source: Developed by Drs. Anselmo Gill, Kimberly Salazar, Will Kasper and colleagues, with an educational archana from [employer]. JEANA-7 Assessment Billing JEANA-7 Assessment Tool: JEANA-7 Assessment 29531 Review of Systems Narrative Review of Systems - Constitutional: Reports weight loss. - Ears: Reports hearing loss in the right ear for the past two weeks. - Dermatological: Reports cracks on bilateral hands. - Constitutional: Denies fever. - Ears: Denies ear pain. Const All systems reviewed & are unremarkable except as noted in HPI and below Physical exam (Primary Care) Vital Signs: Last Vital Signs Temp 97.2 F 04/17/25 11:11 Pulse 67 04/17/25 11:11 Resp 17 04/17/25 11:11 BP 113/59 L 04/17/25 11:11 Pulse Ox 98 04/17/25 11:11 Oxygen Delivery Method Room Air 04/17/25 11:11 Care Plan Goal for BP management: <140/90 at Goal BMI result Body Mass Index 31.7 BMI Assessment/Plan discussion: High BMI High, discussed plan: lifestyle, weight reduction, dietary, physical activity, alcohol moderation and other Tobacco/Smoking Status: Tobacco use Status Tobacco use date assessed 01/28/25 04/17/25 11:08 Patient Tobacco Use Status Former Tobacco user 04/17/25 11:08 Tobacco use type Cigarette 04/17/25 11:08 e-Cigarette/Vaping Use Never Used 04/17/25 11:08 PHQ-9: PHQ-9 Score PHQ-9: Total score 0 04/17/25 11:37 Depression Screening Interpretation: Negative Thrive Assessment: Date of Thrive Assessment Date Thrive assessed 01/28/25 04/17/25 11:08 Currently or been in a relationship where the following occur: No concerns reported Narrative Physical Exam Appearance: Alert. Oriented X3. No acute distress. Head: Normal external exam. Normocephalic. Atraumatic. Lesion on scalp noted, noncancerous as per dermatology, with a scab present. Eyes: Pupils are equal, round, and reactive to light. Extraocular movements intact. Conjunctiva and sclera normal. Eyelids normal. Ears: Right ear requires wax removal. Moderate cerumen that is hard in the right ear canal, unable to be removed by warm water and peroxide. Left Tympanic membranes normal. No infection noted. Normal mastoids. Throat: Pharynx normal. Uvula midline. Moist mucous membranes. Neck: Normal inspection. Neck supple. Full range of motion. Cardiovascular: Normal heart rate and rhythm. Respiratory: No respiratory distress. Painless inspiration. Back: Full range of motion noted. Skin: Skin warm and dry. Normal skin color. Normal skin turgor. Cracks on bilateral hands, possibly eczema. No additonal rashes/lesions/lacerations noted. Extremities: Extremities exhibit normal range of motion. Neuro: Oriented X 3. No motor deficit. No sensory deficit. Reflexes normal. Office Procedures Cerumen Removal From which ear canal was the cerumen removed: right Removal: irrigation Notes: patient tolerated procedure well and no complications [id number] Irrigation/Lavage (Was unsuccessful partial removal of cerumen. Patient will be given Debrox and return in 5 days to re-attempt cerumen removal) Results AMB Hemoglobin A1c AMB Hemoglobin A1c 6.4 % Last Edit by SUZETTE Carter on 04/17/25 11:37 Results Reviewed Results Reviewed: Laboratory Last Values Hgb A1c (Clinic) 6.4 % (4.0-6.0) H 04/17/25 11:34 - Labs: - Hemoglobin A1c (current visit): 6.4% - Hemoglobin A1c (October): 6.7% Coding Level of Care Code Est Pt Level 4 (25092) Add On Problem Visit Only Diagnoses Impacted cerumen, right ear H61.21 Type 2 diabetes mellitus with hemoglobin A1c goal of less than 7.0% E11.9 Eczema L30.9 HTN (hypertension) I10 CPT Codes Office Procedure - CPT: 42430-Yyc Irrigation/Lavage ([id number]) Additional Codes JEANA-7 Assessment Billing - JEANA-7 Assessment Tool: JEANA-7 Assessment 32444 ([id number]) PHQ-9 - 32160 - PHQ-9 Billing: Yes ([id number]) Time Spent (min) 60 Assessment & Plan Assessment & Plan (1) Impacted cerumen, right ear: Code(s): H61.21 - Impacted cerumen, right ear Category: Medical Plan: Initiate removal of cerumen impaction with ear lavage. Follow-up after using Debrox, with potential ENT referral if impaction persists. (2) Type 2 diabetes mellitus with hemoglobin A1c goal of less than 7.0%: Code(s): E11.9 - Type 2 diabetes mellitus without complications Category: Medical Plan: Continue Januvia 100 mg. a1c 6.4. Follow-up with A1c testing and reassessment in three months. (3) Eczema: Code(s): L30.9 - Dermatitis, unspecified Category: Medical Plan: Prescribe hydrocortisone for dermatitis management. Observe symptom response. (4) HTN (hypertension): Code(s): I10 - Essential (primary) hypertension Category: Medical Plan: Maintain current therapy. Scheduled follow-ups to monitor blood pressure. Plan Plan Patient was informed and verbally consented to the use of an ambient scribe for clinic note documentation during this visit. 1. Cerumen Impaction, Right Ear Initiate removal of cerumen impaction with ear lavage. Follow-up after using Debrox, with potential ENT referral if impaction persists. 2. Type 2 Diabetes Mellitus Continue Januvia 100 mg. Follow-up with A1c testing and reassessment in three months. 3. Possible Eczema Prescribe hydrocortisone for dermatitis management. Observe symptom response. 4. Essential Hypertension Maintain current therapy. Scheduled follow-ups to monitor blood pressure. Discussion Notes I engaged the patient in a detailed discussion about his current health issues, addressing the right ear cerumen impaction and its associated hearing loss. The plan involves using Barrocks to facilitate further removal, with re-examination on Tuesday. We discussed the improvement in diabetes management, evidenced by a hemoglobin A1c of 6.4%. Ongoing management includes continued medication adherence and future laboratory assessments. For his reported eczema, I proposed hydrocortisone ointment to manage symptoms. I advised the patient to contact dermatology regarding the scalp lesion and reviewed the importance of attending missed annual appointments. Follow-up will include monitoring for hypertension stability and further diabetes management assessment in three months. Orders: Orders AMB Hemoglobin A1c Today Z13.9 - Encounter for screening, unspecified Referrals Dermatology Referral L98.9 - Disorder of the skin and subcutaneous tissue, unspecified Medications: New carbamide peroxide 6.5% 5 drps otic (ear) right Q12H 15 mL 3RF 4 days mupirocin 2% 1 appl topical BID 22 grams 0RF hydrocortisone 2.5% 1 appl topical BID-TID PRN 454 grams 1RF itching emollient combination no.117 (Eucerin Advanced Repair Hand topical cream) 1 appl topical BID 78 grams 3RF Patient Instructions: Patient Instructions - Use Debrox for earwax until your next doctor's appointment. - Keep taking Januvia 100 mg daily for diabetes. - We will test your A1c in the clinic today. - Use the hydrocortisone on your hands as directed. - Let dermatology know that your scalp scab is bothersome. - Come back in three months to check on your diabetes and blood pressure.
[2025-04-17 11:11] VITALS: BP 113/59; PULSE 67; RESP 17; TEMP 36.2; O2SAT 98; BMI 31.7
--- OUTSIDE RECORDS SUMMARY | 2025-04-17 13:52 | XMS_ITS | Clinical Summary ---
Author Organization [facility] Address [address] [place] [address] [place] [phone] Phone Care Team Providers Care Insurance Follow Up Rep Name Role Phone Pcp, Unknown Primary Care Provider Unavailabl e Encounters Date Type Department Care Team Description 01/16/2025 6:15 AM EDT - 01/16/2025 11:59 PM EDT Hospital Encounter [facility] [address] [place] [address] Kvng Leone MD Discharge Disposition: Home or Self Care 01/16/2025 Transcribe Orders [facility] Specimen Processing [address] [place] [address] Kvng Leone MD Atrial fibrillation, unspecified type (Primary Dx) from Last 3 Months Social History Tobacco [...] Date/Time Associated Diagnosis Comments COMPREHENSIVE METABOLIC PANEL (CMP) Routine 01/16/2025 5:30 AM EDT Atrial fibrillation, unspecified type Congestive heart failure, unspecified HF chronicity, unspecified heart failure type CBC AND DIFFERENTIAL Routine 01/16/2025 5:30 AM EDT Atrial fibrillation, unspecified type from Last 3 Months Results * (ABNORMAL) Comprehensive metabolic panel (01/16/2025 5:30 AM EDT) SODIUM 134 133 - 146 mmol/L [facility] POTASSIUM 4.3 3.3 - 5.1 mmol/L [facility] CHLORIDE 97 96 - 108 mmol/L [facility] CO2 26 21 - 35 mmol/L [facility] BUN 20(H) 6 - 19 mg/dL [facility] CREATININE 1.20 0.5 - 1.5 mg/dL [facility] GLUCOSE 109(H) 70 - 99 mg/dL [facility] ALBUMIN 3.7(L) 3.9 - 4.8 g/dL [facility] TOTAL PROTEIN 6.9 6.5 - 8.0 g/dL [facility] CALCIUM 9.3 8.4 - 10.3 mg/dL [facility] ALKALINE PHOSPHATASE 214(H) 39 - 117 U/L [facility] TOTAL BILIRUBIN 0.5 0.0 - 1.2 mg/dL [facility] AST 20 0 - 37 U/L [facility] ALT 16 0 - 40 U/L [facility] GLOBULIN 3.2 1 - 4.8 g/dL [facility] EGFR 62 >59 mL/min/1.7 3m2 [facility] Comment:Estimated glomerular filtration rate calculated using the CKD-EPI refit equation. ANION GAP 15 10 - 20 mmol/L [facility] Blood 01/16/2025 5:30 AM EDT 01/16/2025 6:21 AM EDT us Kvng Leone MD LAB BLOOD BKR ORDERABLES Final R esult [address] [address] * (ABNORMAL) CBC and differential (01/16/2025 5:30 AM EDT) WBC 7.84 4.00 - 11.00 K/uL [facility] RBC 3.16(L) 4.50 - 5.90 M/uL [facility] HGB 9.5(L) 13.5 - 17.5 g/dL [facility] HCT 29.7(L) 41.0 - 53.0 % [facility] PLT 285 150 - 450 K/uL [facility] MCV 94.0 80.0 - 100.0 fL [facility] MCH 30.1 27.0 - 31.0 pg [facility] MCHC 32.0 32.0 - 36.0 g/dL [facility] RDW 14.0 11.5 - 14.5 % [facility] MPV 10.0 8.4 - 12.0 fL [facility] NRBC 0.00 0.00 /100 WBCs [facility] ABSOLUTE NRBC 0.00 0.00 K/uL [facility] DIFF METHOD Auto [facility] NEUTS 49.2 48.0 - 76.0 % [facility] LYMPHS 30.4 18.0 - 41.0 % [facility] MONOS 15.3(H) 4.0 - 11.0 % [facility] EOS 3.8 0.0 - 5.0 % [facility] BASOS 0.9 0.0 - 1.5 % [facility] Granulocytes, immature (%) 0.4 0.0 - 0.9 % [facility] ABSOLUTE NEUTS 3.86 1.92 - 7.60 K/uL [facility] ABSOLUTE LYMPHS 2.38 0.72 - 4.10 K/uL [facility] ABSOLUTE MONOS 1.20(H) 0.16 - 1.10 K/uL [facility] ABSOLUTE EOS 0.30 0.00 - 0.50 K/uL [facility] ABSOLUTE BASOS 0.07 0.00 - 0.15 K/uL [facility] Granulocytes, immature 0.03 0.00 - 0.09 K/uL [facility] Blood 01/16/2025 5:30 AM EDT 01/16/2025 6:21 AM EDT us Kvng Leone MD LAB BLOOD BKR ORDERABLES Final R esult [id number] [id number] from Last 3 Months Insurance [facility] PART A & [place] [address] [place] [id number] MEDICARE PART A & [place] [address] [place], [place] [id number] MEDICARE PART A & B O MEDICARE PART A & B [facility] PART A & B Care Teams Insurance Follow Up Rep Relationship Specialty Start Date End Date Pcp, Unknown PCP - General 01/09/25 Additional Source Comments The information contained in this document represents components of the legal health record. It is not the complete legal health record.[facility]
== END 2025-04-17 12:24 | disposition home or self-care (01) ==
LOC: HO.HMCSH 10:46
PROVIDERS: PCP Internal Medicine; Visit Provider Physician Assistant Medical
DX: H61.21 Impacted cerumen, right ear (principal); E11.9 Type 2 diabetes mellitus without complications; L30.9 Dermatitis, unspecified; I10 Essential (primary) hypertension

== ENCOUNTER → 2025-04-17 10:46 | Outpatient (BNVA) | payer MEDICARE, OTHER, SELFPAY | PROVIDERS: PCP Internal Medicine; Visit Provider Physician Assistant Medical | DX: H61.21 Impacted cerumen, right ear (principal); E11.9 Type 2 diabetes mellitus without complications; L30.9 Dermatitis, unspecified; I10 Essential (primary) hypertension; Z13.31 Encounter for screening for depression; Z79.899 Other long term (current) drug therapy | CPT/HCPCS: 69209; 83036; 96127; 99212 ==

== ENCOUNTER → 2025-04-17 14:49 | Outpatient (BNV) | payer MEDICARE, OTHER, SELFPAY | PROVIDERS: PCP Physician Assistant Medical; Visit Provider Internal Medicine Cardiovascular Disease | DX: I48.91 Unspecified atrial fibrillation (principal); Z95.0 Presence of cardiac pacemaker | CPT/HCPCS: 93294 ==

== ENCOUNTER 2025-04-22 11:06 | Outpatient (AMB) | payer MEDICARE, OTHER, SELFPAY ==
[2025-04-22 11:12] VITALS: BP 107/53; PULSE 66; TEMP 36.5; O2SAT 99; BMI 31.7
--- NOTE | 2025-04-22 11:12 | A.OFFPC_ITS ---
Vital Signs 04/22/25 11:12 Height 5 ft 9 in Weight 215 lb BMI 31.7 BP 107/53 L Blood Pressure Location Rt brachial Position Sitting Pulse 66 Pulse Source Pulse Oximeter Temp 97.7 F Temp Source Temporal Artery Scan Pulse Oximetry (%) 99 Oxygen Delivery Method Room Air Intake Visit Reasons: Impact RT hear Expansion Joint Finisher Required: No Accompanied by: Self / Same As Patient Allergies prednisone Allergy (Unknown, Verified 04/22/25 11:13) GI Tobacco use date assessed: 01/28/25 Dental Screening Dental Screen Date: 01/28/25 [facility] Medical History HTN (hypertension) Eczema Type 2 diabetes mellitus with hemoglobin A1c goal of less than 7.0% Impacted cerumen, right ear Skin lesion Cardiac pacemaker in situ PAF (paroxysmal atrial fibrillation) Aphasia Acute hypoxic respiratory failure Pneumonia Arthritis Chronic heart disease Synovial cyst of popliteal space [Chandra], right knee Right leg swelling Left scapholunate ligament tear Rupture of distal biceps tendon Class 1 obesity with body mass index (BMI) of 31.0 to 31.9 in adult Rotator cuff tear, left Swelling of left elbow Localized swelling of left forearm Left arm swelling Leg swelling Dysuria Duodenal ulcer Aortic stenosis Speaking difficulty TIA (transient ischemic attack) Insomnia Hospital discharge follow-up History of echocardiogram Hypertriglyceridemia Tubular adenoma Dyspnea on exertion Obesity (BMI 30-39.9) Right shoulder injury Right shoulder pain Cough Raynaud disease Edema Hyperlipemia Type 2 diabetes mellitus Surgical History S/P TAVR (transcatheter aortic valve replacement) History of colonoscopy (~01/04/20) History of cardiac cath History of cataract surgery Family History Father No problems noted. Mother No problems noted. Paternal Grandfather CVD (cardiovascular disease) Paternal Grandmother No problems noted. Maternal Grandfather CVD (cardiovascular disease) Maternal Grandmother No problems noted. 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 1. Little interest or pleasure in doing things: not at all 2. Feeling down, depressed, or hopeless: not at all 3. Trouble falling or staying asleep, or sleeping too much: not at all 4. Feeling tired or having little energy: not at all 5. Poor appetite or overeating: not at all 6. Feeling bad about yourself - or that you are a failure or have let yourself or your family down: not at all 7. Trouble concentrating on things, such as reading the newspaper or watching television: not at all 8. Moving or speaking so slowly that other people could have noticed. Or the opposite - being so fidgety or restless that you have been moving around a lot more than usual: not at all 9. Thoughts that you would be better off or of hurting yourself in some way: not at all Total score: 0 Depression Screening Interpretation: Negative Depression Screening Done: Yes 66775 - PHQ-9 Billing: Yes Source: Developed by Drs. Anselmo Gill, Kimberly Salazar, Will Kasper and colleagues, with an educational archana from [employer]. Thrive Questionnaire Date Thrive assessed: 01/28/25 I am a: Patient What is your living situation today?: I have a steady place to live Within the past 12 months, did the food you bought not last and you didn't have the money to get more?: Never true Within the past 12 months, did you worry whether your food would run out before you got money to buy more?: Never true Do you have trouble paying for medicines?: No Do you have trouble getting transportation to medical appointments?: No Do you have trouble paying your heating and electricity bill?: No Do you have trouble taking care of your child, family member or friend?: No Do you have trouble with day-to-day activities such as bathing, preparing meals, shopping, managing finances, etc.?: No Are you currently unemployed and looking for a job?: No Are you interested in more education?: No Please select the resources that you would like help with: None Currently or been in a relationship where the following occur: No concerns reported THRIVE Score: 0 AUDIT C Alcohol Use Questionnaire (AUDIT-C) 1. How often do you have a drink containing alcohol?: Monthly or less 2. How many drinks containing alcohol do you have on a typical day when you are drinking?: 1 or 2 3. How often do you have six or more drinks on one occasion?: Never Total Score: 1 Score Reviewed/Action Taken: No JEANA-7 AMB Questionnaire JEANA-7 Date JEANA - 7 assessed: 01/28/25 Feeling nervous, anxious, or on edge: 0 = Not at all Not being able to stop or control worryin = Not at all Worrying too much about different things: 0 = Not at all Trouble relaxin = Not at all Being so restless that it is hard to sit still: 0 = Not at all Becoming easily annoyed or irritable: 0 = Not at all Feeling afraid as if something awful might happen: 0 = Not at all Total JEANA-7 score (0-4 normal; 5-9 mild; 10-14 moderate; 15-21 severe): 0 Source: Developed by Drs. Anselmo Gill, Kimberly Salazar, Will Kasper and colleagues, with an educational archana from [employer]. JEANA-7 Assessment Billing JEANA-7 Assessment Tool: JEANA-7 Assessment 57712 Physical exam (Primary Care) Vital Signs: Last Vital Signs Temp 97.7 F 04/22/25 11:12 Pulse 66 04/22/25 11:12 BP 107/53 L 04/22/25 11:12 Pulse Ox 99 04/22/25 11:12 Oxygen Delivery Method Room Air 04/22/25 11:12 BMI result Body Mass Index 31.7 Tobacco/Smoking Status: Tobacco use Status Tobacco use date assessed 01/28/25 04/22/25 11:16 Patient Tobacco Use Status Former Tobacco user 04/22/25 11:16 Tobacco use type Cigarette 04/22/25 11:16 e-Cigarette/Vaping Use Never Used 04/22/25 11:16 PHQ-9: PHQ-9 Score PHQ-9: Total score 0 04/22/25 11:16 Depression Screening Interpretation: Negative Thrive Assessment: Date of Thrive Assessment Date Thrive assessed 01/28/25 04/22/25 11:16 Currently or been in a relationship where the following occur: No concerns reported Office Procedures Cerumen Removal Details: Patient tolerated procedure well From which ear canal was the cerumen removed: bilateral Removal: otoscope w/curette Notes: patient tolerated procedure well 20906-Idt Wax Removal by Spoon/Curette Coding Level of Care Code Est Pt Level 2 (16793) Diagnoses Cerumen impaction H61.20 CPT Codes Office Procedure - CPT: 74203-Pcv Wax Removal by Spoon/Curette ([id number]) Additional Codes JEANA-7 Assessment Billing - JEANA-7 Assessment Tool: JEANA-7 Assessment 09154 ([id number]) PHQ-9 - 42979 - PHQ-9 Billing: Yes ([id number]) Assessment & Plan Assessment & Plan (1) Cerumen impaction: Code(s): H61.20 - Impacted cerumen, unspecified ear Plan: Presnets for ear wax removal. Wax continues to be hard and difficult to remove, despite multiple flusinhgs and use of curette. Wax softner suggested to be used. Orders: Orders AMB Cerumen Removal Today H61.23 - Impacted cerumen, bilateral
--- OUTSIDE RECORDS SUMMARY | 2025-04-22 14:05 | XMS_ITS | Clinical Summary ---
Author Organization [facility] Address [address] [place], [place] [id number] Phone Care Team Providers Care Commercial Litigation Attorney Name Role Phone Pcp, Unknown Primary Care Provider Unavailabl e Social History Tobacco Use Types Packs/Day Years [...] on file Medical Devices Not on file [facility] & B [address] [place] [address] [facility] Address: [place] [address] MEDICARE PART A & B [facility] A & B Member Subscriber Plan / Payer (Ef fective 2011-Present) Name:Thaddeus Velásquez Member ID:[id number] Relation to Subscriber:Self Name:Thaddeus Velásquez Subscriber ID:[id number] Payer ID:[id number] Group ID:Not on file Type:Medicare Address: [facility] Consumer Health [employer]visers [facility] [address] [place] [address] [facility] Address: [place] [address] MEDICARE PART A & B [facility] & B Member Subscriber Plan / Payer (Ef fective 2011-Present) Name:Thaddeus Velásquez Member ID:[id number] Relation to Subscriber:Self Name:Thaddeus Velásquez Subscriber ID:[id number] Payer ID:[id number] Group ID:Not on file Type:Medicare Address: [employer] [address] [facility] Address: [place] [address] MEDICARE PART A & B Care Teams Commercial Litigation Attorney Relationship Specialty Start Date End Date Pcp, Unknown PCP - General 01/09/25 Additional Source Comments The information contained in this document represents components of the legal health record. It is not the complete legal health record.[facility]
== END 2025-04-22 11:40 | disposition home or self-care (01) ==
LOC: HO.HMCSH 11:06
PROVIDERS: PCP Physician Assistant Medical; Visit Provider Internal Medicine
DX: H61.21 Impacted cerumen, right ear (principal)

== ENCOUNTER → 2025-04-22 11:06 | Outpatient (BNVA) | payer MEDICARE, OTHER, SELFPAY | PROVIDERS: PCP Physician Assistant Medical; Visit Provider Internal Medicine | DX: H61.23 Impacted cerumen, bilateral (principal); Z13.31 Encounter for screening for depression | CPT/HCPCS: 69210; 96127; 99212 ==